=== PATIENT | female | born 1940 | race Caucasian/White ===

== ENCOUNTER 2017-07-11 19:07 | Inpatient (IN) | payer MEDICARE, SELFPAY ==
[2017-07-11] VITALS (7 sets, daily range): BP systolic 96–129; BP diastolic 45–67; PULSE 58–68; RESP 18–20; TEMP 36.4–37.1; O2SAT 96–100; BMI 33.3
--- NOTE | 2017-07-11 19:23 | EKG12_ITS ---
Test Reason : NEW ADMIT Blood Pressure : / mmHG Vent. Rate : 055 BPM Atrial Rate : 055 BPM P-R Int : 148 ms QRS Dur : 076 ms QT Int : 446 ms P-R-T Axes : 025 019 036 degrees QTc Int : 426 ms Sinus bradycardia Otherwise normal ECG When compared with ECG of 25-OCT-2014 22:19, Nonspecific T wave abnormality has replaced inverted T waves in Anterior leads Confirmed by ALEX LOWERY, ISIAH ([id number]), scientific publications editor LUCI DE LA O ([id number] on 07/15/2017 1:09:41 PM Referred By: KENZIE MELENDEZ Confirmed By:ISIAH JOHNSON MD
--- NOTE | 2017-07-11 21:45 | PCM.HP.STD ---
Problem List (1) PAF (paroxysmal atrial fibrillation) Status: Acute (2) Influenza B Status: Acute (3) Influenzal bronchiolitis Status: Acute History of Present Illness Date of Admission: 07/11/17 Chief Complaint: wheezing and dyspnea The patient is a 77 year old F with past history of PAF, hyperlipidemia, hypothyroidism, mood disorder, rheumatoid arthritis on twice monthly biologic injectable, who is currently completing treatment with Tamiflu for influenza B infection. She has had wheezing over the past few days. She was seen in the PCP office today and received albuterol aerosol ?2. Due to continued wheezing, she was referred to emergency department where she received albuterol/ipratropium aerosol ?2. She developed PAF RVR, with EKG revealing atrial fibrillation rates 140s. Chest x-ray was unrevealing. Saturation was 98 -100% on 2 liters. Chest x-ray revealed no infiltrate. Chest CT PE protocol revealed no evidence of thromboembolic phenomena, basilar atelectasis. The patient was treated with diltiazem protocol, and upon transfer from the emergency department had reverted to normal sinus rhythm. Upon seeing the patient, she remains in normal sinus rhythm. She denies chest pain, productive cough, fevers chills nausea vomiting diarrhea. She has felt wiped out from the influenza. She is still wheezing slightly. Laboratories are reviewed from referring facility. CBC was acceptable, white count 3.5, hemoglobin 14.4, urinalysis negative, chemistries pertinent for potassium 3.1, BUN 1.0, otherwise unrevealing, BNP 383, troponin 0. 30. Reports prior history of PAF after surgeries 4 years ago. She recalls stress test was unrevealing. She completed a course of Xarelto for DVT and has been off NOAC for 2 weeks. [] Past Medical History Past Medical History (Chronic Problems): Chronic Problems (Last Updated 05/16/17 @ 13:54 by Zoë Duke) GI (gastrointestinal bleed) (Chronic ~01/2017) DVT (deep venous thrombosis) (Chronic) right lower leg Hyperlipidemia (Chronic) Paroxysmal atrial fibrillation (Chronic) Hypothyroidism (Chronic) 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 (Chronic) Rheumatoid arthritis (Chronic) Mixed anxiety and depressive disorder (Chronic) Immunosuppressed status (Chronic) on Humira and methotrexate History of peptic ulcer disease (Chronic) Allergies cephalexin monohydrate [From [employer]] Allergy (Verified 05/16/17 13:45) Hives ethchlorvynol [From Placidyl] Allergy (Verified 05/16/17 13:45) Unknown NSAIDS (Non-Steroidal Anti-Inflamma Allergy (Verified 05/16/17 13:45) Unknown Penicillins [PCN] Allergy (Verified 05/16/17 13:45) Unknown Sulfa (Sulfonamide Antibiotics) Allergy (Verified 05/16/17 13:45) Rash sulfamethoxazole [From Septra] Allergy (Verified 05/16/17 13:45) Unknown trimethoprim [From Septra] Allergy (Verified 05/16/17 13:45) Unknown Home Medications: Ambulatory Orders Medication Instructions Recorded Atorvastatin Calcium [Lipitor] 20 mg PO QHS 10/17/14 Ergocalciferol [Vitamin D] 5,000 unit PO DAILY 10/17/14 Levothyroxine [Synthroid] 100 mcg PO DAILY 10/17/14 Sertraline HCl [Zoloft] 100 mg PO DAILY 10/17/14 tocilizumab 162 mg/0.9 mL 162 mg SC Q2W ml 05/16/17 subcutaneous syringe Diltiazem CD [Cardizem CD] 120 mg PO DAILY 07/11/17 Oseltamivir Phosphate [Tamiflu] 75 mg PO BID 07/11/17 Psychiatric History: Anxiety, Depression 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 MINER 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 History: No pertinent MUCK MINER BLASTING history Smoking Status: Never smoker - *Family History Maternal History Items: Cancer - mother had breast CA in her 90's, Unknown Paternal History Items: Heart Disease, - - aneurysm in her father who from CAD and aneurym at 74 Sibling History Items: Cancer - she had a brother with throat cancer, - - she had a sister with severe epilepsy who lived in a [place] and Review of Systems Respiratory: Reports: Wheezing, - - cough VTE Information - Inpt Only VTE Present on Admission: No VTE Mechan Device Prophylaxis: SCD's VTE Pharm Prophylaxis ordered?: Yes Patient Problems: Active and Suspected Problems (Last Updated 05/16/17 @ 13:54 by Zoë Duke) PAF (paroxysmal atrial fibrillation) (Acute) Influenza B (Acute) Influenzal bronchiolitis (Acute) - Physical Exam General: Alert, Oriented x3, Cooperative Oral: Moist Mucosa Neck: Supple, No JVD, Negative Carotid Bruits, Negative Hepatojugular Reflux Lungs: Wheezes Cardiovascular: Regular rate, Regular Rhythm, Normal S1, Normal S2 Abdomen: Bowel Sounds Present, Soft, Non Tender, Non-Distended Extremities: - - Gross edema, bilateral well-healed knee arthroplasties Skin: No rashes, No breakdown Neurological: Neuro grossly intact Psych/Mental Status: Normal Affect, Appropriate Vital Signs Temp Pulse Resp BP Pulse Ox 97.6 F L 68 20 H 112/67 99 07/11/17 21:00 07/11/17 21:00 07/11/17 21:00 07/11/17 21:00 07/11/17 21:00 Oxygen Flow Rate (L/min) 2 Oxygen Delivery Method Nasal Cannula Weight: 194 lb 3.636 oz Body Mass Index (BMI) 33.3 Assessment/Plan Active and Suspected Problems (Last Updated 05/16/17 @ 13:54 by Zoë Duke) PAF (paroxysmal atrial fibrillation) (Acute) Influenza B (Acute) Influenzal bronchiolitis (Acute) 77-year-old woman with comorbidities of hyperlipidemia, hypothyroidism, mood disorder, rheumatoid arthritis on biological injectable twice monthly, PAF, DVT status post NOAC anticoagulation stopped 2 weeks ago, presents with influenza B/influenzal bronchiolitis, complicated by PAF provoked due to bronchodilator therapy. She has reverted to normal sinus rhythm. She has 2 additional doses of Tamiflu left to complete of her 5 day course. Biggest issue at the moment is pulmonary toilette. She would benefit from course of steroids and perhaps LABA/steroid. Would avoid further DUONEB.albuterol . Her elevated is likely consistent with troponin leak secondary to sustained tachyarrhythmia, now resolved; will cycle serial troponins, continue telemetry monitoring. Patient never had chest pain symptoms. 1. influenza B, influenzal bronchiolitis Solumedrol 40 mg IV every 8 hours Mucinex complete Tamiflu fluids, antitussives, Tylenol prn, Cepacol trial LABA/steroid droplet precautions 2. PAF resolved Provoked by bronchodilator therapy in setting of HTN; reports post op afib about 4 years ago [id number] score = 4 consider NOAC opinion cardiology (patient follows with Dr. Balderas) 3. elevated troponin , suspect 2/2 demand ischemia, no chest pain, NOS -- will cycle serial troponins 4. hypoKalemia -- will replete 3. hypothyroidism on replacement check TSH 4. HPL on statin 5. mood disorder - SSRI 6. RA on biologics, immunocompromised state DVT prophy -- SCDs, subQ heparin
--- NOTE | 2017-07-11 22:00 | HP.PCM_ITS ---
Problem List (1) PAF (paroxysmal atrial fibrillation) Status: Acute (2) Influenza B Status: Acute (3) Influenzal bronchiolitis Status: Acute History of Present Illness Date of Admission: 07/11/17 Chief Complaint: wheezing and dyspnea The patient is a 77 year old F with past history of PAF, hyperlipidemia, hypothyroidism, mood disorder, rheumatoid arthritis on twice monthly biologic injectable, who is currently completing treatment with Tamiflu for influenza B infection. She has had wheezing over the past few days. She was seen in the PCP office today and received albuterol aerosol ?2. Due to continued wheezing, she was referred to emergency department where she received albuterol/ ipratropium aerosol ?2. She developed PAF RVR, with EKG revealing atrial fibrillation rates 140s. Chest x-ray was unrevealing. Saturation was 98 -100% on 2 liters. Chest x-ray revealed no infiltrate. Chest CT PE protocol revealed no evidence of thromboembolic phenomena, basilar atelectasis. The patient was treated with diltiazem protocol, and upon transfer from the emergency department had reverted to normal sinus rhythm. Upon seeing the patient, she remains in normal sinus rhythm. She denies chest pain, productive cough, fevers chills nausea vomiting diarrhea. She has felt wiped out from the influenza. She is still wheezing slightly. Laboratories are reviewed from referring facility. CBC was acceptable, white count 3.5, hemoglobin 14.4, urinalysis negative, chemistries pertinent for potassium 3.1, BUN 1.0, otherwise unrevealing, BNP 383, troponin 0. 30. Reports prior history of PAF after surgeries 4 years ago. She recalls stress test was unrevealing. She completed a course of Xarelto for DVT and has been off NOAC for 2 weeks. [] Past Medical History Past Medical History (Chronic Problems): Chronic Problems (Last Updated 05/16/17 @ 13:54 by Zoë Duke) GI (gastrointestinal bleed) (Chronic ~01/2017) DVT (deep venous thrombosis) (Chronic) right lower leg Hyperlipidemia (Chronic) Paroxysmal atrial fibrillation (Chronic) Hypothyroidism (Chronic) 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 (Chronic) Rheumatoid arthritis (Chronic) Mixed anxiety and depressive disorder (Chronic) Immunosuppressed status (Chronic) on Humira and methotrexate History of peptic ulcer disease (Chronic) Allergies cephalexin monohydrate [From [employer]] Allergy (Verified 05/16/17 13:45) Hives ethchlorvynol [From Placidyl] Allergy (Verified 05/16/17 13:45) Unknown NSAIDS (Non-Steroidal Anti-Inflamma Allergy (Verified 05/16/17 13:45) Unknown Penicillins [PCN] Allergy (Verified 05/16/17 13:45) Unknown Sulfa (Sulfonamide Antibiotics) Allergy (Verified 05/16/17 13:45) Rash sulfamethoxazole [From Septra] Allergy (Verified 05/16/17 13:45) Unknown trimethoprim [From Septra] Allergy (Verified 05/16/17 13:45) Unknown Home Medications: Ambulatory Orders Medication Instructions Recorded Atorvastatin Calcium [Lipitor] 20 mg PO QHS 10/17/14 Ergocalciferol [Vitamin D] 5,000 unit PO DAILY 10/17/14 Levothyroxine [Synthroid] 100 mcg PO DAILY 10/17/14 Sertraline HCl [Zoloft] 100 mg PO DAILY 10/17/14 tocilizumab 162 mg/0.9 mL 162 mg SC Q2W ml 05/16/17 subcutaneous syringe Diltiazem CD [Cardizem CD] 120 mg PO DAILY 07/11/17 Oseltamivir Phosphate [Tamiflu] 75 mg PO BID 07/11/17 Psychiatric History: Anxiety, Depression 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: No pertinent GOLD LEAF GILDER history Smoking Status: Never smoker - *Family History Maternal History Items: Cancer - mother had breast CA in her 90's, Unknown Paternal History Items: Heart Disease, - - aneurysm in her father who from CAD and aneurym at 74 Sibling History Items: Cancer - she had a brother with throat cancer, - - she had a sister with severe epilepsy who lived in a [place] and Review of Systems Respiratory: Reports: Wheezing, - - cough VTE Information - Inpt Only VTE Present on Admission: No VTE Mechan Device Prophylaxis: SCD's VTE Pharm Prophylaxis ordered?: Yes Patient Problems: Active and Suspected Problems (Last Updated 05/16/17 @ 13:54 by Zoë Duke) PAF (paroxysmal atrial fibrillation) (Acute) Influenza B (Acute) Influenzal bronchiolitis (Acute) - Physical Exam General: Alert, Oriented x3, Cooperative Oral: Moist Mucosa Neck: Supple, No JVD, Negative Carotid Bruits, Negative Hepatojugular Reflux Lungs: Wheezes Cardiovascular: Regular rate, Regular Rhythm, Normal S1, Normal S2 Abdomen: Bowel Sounds Present, Soft, Non Tender, Non-Distended Extremities: - - Gross edema, bilateral well-healed knee arthroplasties Skin: No rashes, No breakdown Neurological: Neuro grossly intact Psych/Mental Status: Normal Affect, Appropriate Vital Signs Temp Pulse Resp BP Pulse Ox 97.6 F L 68 20 H 112/67 99 07/11/17 21:00 07/11/17 21:00 07/11/17 21:00 07/11/17 21:00 07/11/17 21:00 Oxygen Flow Rate (L/min) 2 Oxygen Delivery Method Nasal Cannula Weight: 194 lb 3.636 oz Body Mass Index (BMI) 33.3 Assessment/Plan Active and Suspected Problems (Last Updated 05/16/17 @ 13:54 by Zoë Duke) PAF (paroxysmal atrial fibrillation) (Acute) Influenza B (Acute) Influenzal bronchiolitis (Acute) 77-year-old woman with comorbidities of hyperlipidemia, hypothyroidism, mood disorder, rheumatoid arthritis on biological injectable twice monthly, PAF, DVT status post NOAC anticoagulation stopped 2 weeks ago, presents with influenza B/ influenzal bronchiolitis, complicated by PAF provoked due to bronchodilator therapy. She has reverted to normal sinus rhythm. She has 2 additional doses of Tamiflu left to complete of her 5 day course. Biggest issue at the moment is pulmonary toilette. She would benefit from course of steroids and perhaps LABA/steroid. Would avoid further DUONEB.albuterol . Her elevated is likely consistent with troponin leak secondary to sustained tachyarrhythmia, now resolved; will cycle serial troponins, continue telemetry monitoring. Patient never had chest pain symptoms. 1. influenza B, influenzal bronchiolitis Solumedrol 40 mg IV every 8 hours Mucinex complete Tamiflu fluids, antitussives, Tylenol prn, Cepacol trial LABA/steroid droplet precautions 2. PAF resolved Provoked by bronchodilator therapy in setting of HTN; reports post op afib about 4 years ago [id number] score = 4 consider NOAC opinion cardiology (patient follows with Dr. Balderas) 3. elevated troponin , suspect 2/2 demand ischemia, no chest pain, NOS -- will cycle serial troponins 4. hypoKalemia -- will replete 3. hypothyroidism on replacement check TSH 4. HPL on statin 5. mood disorder - SSRI 6. RA on biologics, immunocompromised state DVT prophy -- SCDs, subQ heparin
[2017-07-11] MEDS: 0.9% Normal Saline 1,000 ML 75 ML IV (22:44)
[2017-07-12] VITALS (15 sets, daily range): BP systolic 126–147; BP diastolic 57–78; PULSE 57–171; RESP 16–20; TEMP 36.8–37.2; O2SAT 92–97
[2017-07-12] MEDS: 0.9% NaCl Peripheral Flush Adult/Peds IV ×3 (05:32→22:17)
[2017-07-12] MEDS: Levothyroxine 100 MCG Tablet PO (05:32)
[2017-07-12 06:56] LABS: Bedside Glucose 102 mg/dL (70-110)
[2017-07-12] MEDS: Budesonide Respules 0.5 MG/2 ML AMPUL.NEB. INHALATION ×2 (07:23→19:49)
[2017-07-12 07:30] LABS: Absolute Lymphocyte Count 0.97 X10^3/ul (0.83-4.51); Absolute Neutrophil Count 1.3 X10^3/uL (2.0-7.7); Basophil# 0.04 X10^3/uL; Basophil% 1.5 % (0-1); Eosinophil# 0.04 X10^3/uL; Eosinophils% 1.5 % (0-5); Hematocrit 40.3 % (37-47); Hemoglobin 12.8 g/dl (12.0-15.0); Lymphocyte # 0.97 X10^3/ul (4.0); Lymphocyte % 36.1 % (19-41); Mean Corp Hgb Conc 31.8 g/gl (32-36); Mean Corpuscular Hgb 29.6 pg (27.0-32.0); Mean Corpuscular Volume 93.3 fL (81-99); Mean Platelet Vol. 10.2 fl (6.2-12.0); Monocyte# 0.29 X10^3/uL; Monocyte% 10.8 % (0-10); Neutrophil # 1.34 X10^3/uL (2.7-7.7); Neutrophil % 49.7 % (47-70); Platelet Count 144 K/mm3 (150-450); RBC Distribution Width CV 16.9 % (11.6-14.6); Red Blood Count 4.32 M/mm3 (4.2-5.4); White Blood Count 2.7 K/mm3 (4.4-11.0)
[2017-07-12 07:35] LABS: POSITIVE COUNT NO; POSITIVE DIFFERENTIAL NO; POSITIVE MORPHOLOGY NO
[2017-07-12 08:06] LABS: Anion Gap 10 (5-15); BUN 9 mg/dL (7-18); BUN/Creat Ratio 10.9 RATIO (10-20); Calcium,Total 7.9 mg/dL (8.5-10.1); Chloride 113 mmol/L (98-107); Creatinine, Serum 0.83 mg/dL (0.55-1.02); EST Glomerular Filtration Rate 71 mL/min (>60); Est Glom Filt Rate - Afr Amer 86 mL/min (>60); Estimated Creatinine Clearance 49.79 ml/min; Glucose 98 mg/dL (74-106); Magnesium 1.9 mg/dL (1.6-2.6); Sodium Level 144 mmol/L (136-145); Thyroid Stim Hormone (TSH) 2.17 uIU/mL (0.358-3.74)
[2017-07-12] MEDS: dilTIAZem CD 120 MG Capsule PO (09:42)
[2017-07-12] MEDS: Sertraline 100 MG Tablet PO (09:42)
[2017-07-12] MEDS: Oseltamivir Phosphate 75 MG Capsule PO ×2 (09:43→22:10)
[2017-07-12] MEDS: guaiFENesin 1,200 MG Tablet 600 MG PO (09:43)
--- NOTE | 2017-07-12 09:56 | PCM.CONS.C ---
Problem List (1) PAF (paroxysmal atrial fibrillation) Status: Acute (2) Hyperlipidemia Status: Chronic Reason for Consult Date of Consultation: 07/12/17 Reason for Consultation: Paroxysmal atrial fibrillation, hypertension, hypothyroidism, hyperlipidemia History of Present Illness: The patient is a 77 year old F, patient of mine, nondiabetic, non-smoker, with a history of hypercholesterolemia, currently on Lipitor, and former patient of Dr. Rangel. I originally saw the patient in consultation on 10/26/14 after she had tripped and fallen over some sticks injuring her left lower leg. This proceeded to an infection or period of days and presented with left lower extremity cellulitis requiring surgical debridement. This occurred on 10/21/14 and then again on 10/25/14. After her third surgery she developed paroxysmal atrial fibrillation with rapid ventricular response and was treated with a Cardizem drip which then spontaneously converted. Patient underwent successful flap surgery by plastic surgery over her left jimenez several years ago. Her cardiac workup included an echocardiogram which demonstrated an EF of 65% and RVSP of 24 mmHg. She was treated with baby aspirin and Cardizem. She underwent a noninvasive stress test which was negative for inducible ischemia after her wound had healed. Patient suffered a mechanical fall in [place] approximately 1 years ago tripping over a curb requiring 12 chanda in her right knee. This is subsequently well-healed. Patient has been doing well up until around Tuesday when she developed flulike symptoms and was diagnosed with influenza and started on Tamiflu on of last week. Patient's shortness of breath worsened on Tuesday sought medical attention with her PCP. The patient was treated with nebulizer therapy and developed palpitations and worsening shortness of breath. Patient sought medical attention on the day of admission and she was found to be in rapid atrial fibrillation after a nebulizer treatment. Patient was given Cardizem and subsequently converted back to normal sinus rhythm. Prior to her illness she denied any palpitations, chest pain, shortness of breath or dyspnea on exertion. She has had no subsequent falls, presyncope or syncope. She is not on long-term anticoagulation. Since admission she had one episode of atrial fibrillation with rapid ventricular response with minor aberrancy noted. She is currently in normal sinus rhythm. Her troponins have been negative. Patient stated that she did not note her heart was racing, and denied knowing when she goes in and out of atrial fibrillation. [] Past Medical History Allergies/Adverse Reactions: Allergies cephalexin monohydrate [From Keflex] Allergy (Verified 05/16/17 13:45) Hives ethchlorvynol [From Placidyl] Allergy (Verified 05/16/17 13:45) Unknown NSAIDS (Non-Steroidal Anti-Inflamma Allergy (Verified 05/16/17 13:45) Unknown Penicillins [PCN] Allergy (Verified 05/16/17 13:45) Unknown Sulfa (Sulfonamide Antibiotics) Allergy (Verified 05/16/17 13:45) Rash sulfamethoxazole [From Septra] Allergy (Verified 05/16/17 13:45) Unknown trimethoprim [From Septra] Allergy (Verified 05/16/17 13:45) Unknown Home Medications: Ambulatory Orders Medication Instructions Recorded Atorvastatin Calcium [Lipitor] 20 mg PO QHS 10/17/14 Ergocalciferol [Vitamin D] 5,000 unit PO DAILY 10/17/14 Levothyroxine [Synthroid] 100 mcg PO DAILY 10/17/14 Sertraline HCl [Zoloft] 100 mg PO DAILY 10/17/14 tocilizumab 162 mg/0.9 mL 162 mg SC Q2W ml 05/16/17 subcutaneous syringe Diltiazem CD [Cardizem CD] 120 mg PO DAILY 07/11/17 Oseltamivir Phosphate [Tamiflu] 75 mg PO BID 07/11/17 Past Medical History (Chronic Problems): Chronic Problems (Last Updated 05/16/17 @ 13:54 by Zoë Duke) GI (gastrointestinal bleed) (Chronic ~01/2017) DVT (deep venous thrombosis) (Chronic) right lower leg Hyperlipidemia (Chronic) Paroxysmal atrial fibrillation (Chronic) Hypothyroidism (Chronic) 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 (Chronic) Rheumatoid arthritis (Chronic) Mixed anxiety and depressive disorder (Chronic) Immunosuppressed status (Chronic) on Humira and methotrexate History of peptic ulcer disease (Chronic) Psychiatric History: Anxiety, Depression 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 - *Family History Maternal Family History: Family History (Last Reviewed 05/16/17 @ 13:45 by Zoë Duke) Father CAD (coronary artery disease) Mother Breast cancer History Items: Cancer - mother had breast CA in her 90's, Unknown Paternal Family History: Family History (Last Reviewed 05/16/17 @ 13:45 by Zoë Duke) Father CAD (coronary artery disease) Mother Breast cancer History Items: Heart Disease, - - aneurysm in her father who from CAD and aneurym at 74 Sibling Family History: Family History (Last Reviewed 05/16/17 @ 13:45 by Zoë Duke) Father CAD (coronary artery disease) Mother Breast cancer History Items: Cancer - she had a brother with throat cancer, - - she had a sister with severe epilepsy who lived in a [place] and Smoking Status: Never smoker Review of Systems - Review of Systems General: Denies: Fever, Night Sweats, Fatigue Cardiovascular: Reports: Shortness of Breath at Rest. Denies: Chest Discomfort, Shortness of Breath, Orthopnea, PND, Peripheral Edema, Palpitations, Lightheadedness, Dizziness, Near Syncope, Syncope Respiratory: Denies: Cough, Sputum Production, Hemoptysis Gastrointestinal: Denies: Hematemesis, Hematochezia, Melena Genitourinary: Denies: Dysuria, Hematuria Skin: Denies: Rash Subjectve: Currently sitting in a chair resting comfortably, no acute distress. Objective: Vital Signs Temp Pulse Resp BP Pulse Ox 98.4 F 80 18 128/57 H 97 07/12/17 09:30 07/12/17 09:30 07/12/17 09:30 07/12/17 09:30 07/12/17 09:30 Oxygen Flow Rate (L/min) 2 Oxygen Delivery Method Room Air Weight: 194 lb 3.636 oz Body Mass Index (BMI) 33.3 Intake and Output for Last 24 Hours 07/10/17 07/11/17 07/12/17 23:59 23:59 23:59 Intake Total 736 / 736 Balance 736 / 736 General: Awake, Alert, Oriented x 3 HEENT: PERRL, EOMI, Sclera Non Icteric Neck: Supple, Good ROM, No Lymph Node Enlargement Lungs: Clear to auscultation Cardiovascular: Regular Rhythm, Normal S1, Normal S2, No Murmurs, No Rubs, No Gallops Vascular: No Carotid Bruits, Normal Femoral Pulses, Normal Radial Pulses, Normal Dorsalis Pedal Pulse, Normal Posterior Tibial Pulses Abdomen: Bowel Sounds Present, Soft, Non Tender, No HSM, No Organomegaly Extremities: No Cyanosis, No Clubbing, No edema Neurological: No Focal Motor or Sensory Deficit 07/11/17 22:36: Troponin I < 0.02 07/12/17 02:33: Troponin I < 0.02 07/12/17 06:46: WBC 2.7 L, RBC 4.32, Hgb 12.8, Hct 40.3, MCV 93.3, MCH 29.6, MCHC 31.8 L, RDW 16.9 H, RDW Differential 58.0 H, Plt Count 144 L, MPV 10.2, Immature Gran % (Auto) 0.400, Neut % (Auto) 49.7, Lymph % (Auto) 36.1, Sherman % (Auto) 10.8 H, Eos % (Auto) 1.5, Baso % (Auto) 1.5 H, Absolute Neuts (auto) 1.3 L, Total Counted Not Reportable 07/12/17 06:46: Sodium 144, Potassium 4.0, Chloride 113 H, Carbon Dioxide 21.0, Anion Gap 10, BUN 9, Creatinine 0.83, Est GFR (MDRD) Af Amer 86, Est GFR (MDRD) Non-Af 71, BUN/Creatinine Ratio 10.9, Glucose 98, Calcium 7.9 L, Magnesium 1.9 07/12/17 06:46: Troponin I < 0.02 Rhythm: EKG: Normal sinus rhythm with no acute changes. Admission EKG showed atrial fibrillation with rapid ventricular response and diffuse dynamic ST segment T-wave flattening. ECHO: Stress Test: Cardiac Cath: PCI: CT Surgery: Holter monitor: EPS: PPM: CXR: Chest CT Scan: Assessment/Plan 1. Paroxysmal atrial fibrillation: The patient's atrial fibrillation appears to manifest itself and the patient is in an acute illness like setting consistent with previous infection of her legs, and now with influenza. Her LV function is normal on her previous echocardiogram and her stress test was also negative. It appears the patient is unaware when she goes in and out of atrial fibrillation. In addition she has a history of peptic ulcer disease making anticoagulation somewhat problematic going forward. At this point the patient is in normal sinus rhythm and would not recommend oral anticoagulation going forward. It appears that as her respiratory illness improves her atrial fibrillation becomes less prominent. I would however recommend a 30 day event monitor upon discharge in order to document whether she is going in and out of atrial fibrillation unbeknownst to her, and outside the acute illness. If this demonstrates atrial fibrillation I would recommend oral anticoagulation therapy with either Xarelto or Eliquis. In the meantime her troponins are negative and I would not recommend repeat echo or stress test at this time. Her TSH is normal, continue Synthroid therapy. Continue Cardizem CD 120 mg p.o. daily. I believe it is prudent to continue baby aspirin. 2. Hyperlipidemia: Continued Lipitor therapy. 3. Thank you very much for the opportunity to participate in the cardiac care of your patient. Consultation time took place between 930 and 10 AM. Code Visit Inpatient E&M: 28302 Init Hosp L2
--- NOTE | 2017-07-12 10:03 | CON.PCM_ITS ---
Problem List (1) PAF (paroxysmal atrial fibrillation) Status: Acute (2) Hyperlipidemia Status: Chronic Reason for Consult Date of Consultation: 07/12/17 Reason for Consultation: Paroxysmal atrial fibrillation, hypertension, hypothyroidism, hyperlipidemia History of Present Illness: The patient is a 77 year old F, patient of mine, nondiabetic, non-smoker, with a history of hypercholesterolemia, currently on Lipitor, and former patient of Dr. Rangel. I originally saw the patient in consultation on 10/26/14 after she had tripped and fallen over some sticks injuring her left lower leg. This proceeded to an infection or period of days and presented with left lower extremity cellulitis requiring surgical debridement. This occurred on 10/21/14 and then again on 10/25/14. After her third surgery she developed paroxysmal atrial fibrillation with rapid ventricular response and was treated with a Cardizem drip which then spontaneously converted. Patient underwent successful flap surgery by plastic surgery over her left jimenez several years ago. Her cardiac workup included an echocardiogram which demonstrated an EF of 65% and RVSP of 24 mmHg. She was treated with baby aspirin and Cardizem. She underwent a noninvasive stress test which was negative for inducible ischemia after her wound had healed. Patient suffered a mechanical fall in [place] approximately 1 years ago tripping over a curb requiring 12 chanda in her right knee. This is subsequently well-healed. Patient has been doing well up until around Tuesday when she developed flulike symptoms and was diagnosed with influenza and started on Tamiflu on of last week. Patient's shortness of breath worsened on Tuesday sought medical attention with her PCP. The patient was treated with nebulizer therapy and developed palpitations and worsening shortness of breath. Patient sought medical attention on the day of admission and she was found to be in rapid atrial fibrillation after a nebulizer treatment. Patient was given Cardizem and subsequently converted back to normal sinus rhythm. Prior to her illness she denied any palpitations, chest pain, shortness of breath or dyspnea on exertion. She has had no subsequent falls, presyncope or syncope. She is not on long-term anticoagulation. Since admission she had one episode of atrial fibrillation with rapid ventricular response with minor aberrancy noted. She is currently in normal sinus rhythm. Her troponins have been negative. Patient stated that she did not note her heart was racing, and denied knowing when she goes in and out of atrial fibrillation. [] Past Medical History Allergies/Adverse Reactions: Allergies cephalexin monohydrate [From Keflex] Allergy (Verified 05/16/17 13:45) Hives ethchlorvynol [From Placidyl] Allergy (Verified 05/16/17 13:45) Unknown NSAIDS (Non-Steroidal Anti-Inflamma Allergy (Verified 05/16/17 13:45) Unknown Penicillins [PCN] Allergy (Verified 05/16/17 13:45) Unknown Sulfa (Sulfonamide Antibiotics) Allergy (Verified 05/16/17 13:45) Rash sulfamethoxazole [From Septra] Allergy (Verified 05/16/17 13:45) Unknown trimethoprim [From Septra] Allergy (Verified 05/16/17 13:45) Unknown Home Medications: Ambulatory Orders Medication Instructions Recorded Atorvastatin Calcium [Lipitor] 20 mg PO QHS 10/17/14 Ergocalciferol [Vitamin D] 5,000 unit PO DAILY 10/17/14 Levothyroxine [Synthroid] 100 mcg PO DAILY 10/17/14 Sertraline HCl [Zoloft] 100 mg PO DAILY 10/17/14 tocilizumab 162 mg/0.9 mL 162 mg SC Q2W ml 05/16/17 subcutaneous syringe Diltiazem CD [Cardizem CD] 120 mg PO DAILY 07/11/17 Oseltamivir Phosphate [Tamiflu] 75 mg PO BID 07/11/17 Past Medical History (Chronic Problems): Chronic Problems (Last Updated 05/16/17 @ 13:54 by Zoë Duke) GI (gastrointestinal bleed) (Chronic ~01/2017) DVT (deep venous thrombosis) (Chronic) right lower leg Hyperlipidemia (Chronic) Paroxysmal atrial fibrillation (Chronic) Hypothyroidism (Chronic) 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 (Chronic) Rheumatoid arthritis (Chronic) Mixed anxiety and depressive disorder (Chronic) Immunosuppressed status (Chronic) on Humira and methotrexate History of peptic ulcer disease (Chronic) Psychiatric History: Anxiety, Depression CASINO HOST History: No pertinent CASINO HOST history - *Family History Maternal Family History: Family History (Last Reviewed 05/16/17 @ 13:45 by Zoë Duke) Father CAD (coronary artery disease) Mother Breast cancer History Items: Cancer - mother had breast CA in her 90's, Unknown Paternal Family History: Family History (Last Reviewed 05/16/17 @ 13:45 by Zoë Duke) Father CAD (coronary artery disease) Mother Breast cancer History Items: Heart Disease, - - aneurysm in her father who from CAD and aneurym at 74 Sibling Family History: Family History (Last Reviewed 05/16/17 @ 13:45 by Zoë Duke) Father CAD (coronary artery disease) Mother Breast cancer History Items: Cancer - she had a brother with throat cancer, - - she had a sister with severe epilepsy who lived in a [place] and Smoking Status: Never smoker Review of Systems - Review of Systems General: Denies: Fever, Night Sweats, Fatigue Cardiovascular: Reports: Shortness of Breath at Rest. Denies: Chest Discomfort , Shortness of Breath, Orthopnea, PND, Peripheral Edema, Palpitations, Lightheadedness, Dizziness, Near Syncope, Syncope Respiratory: Denies: Cough, Sputum Production, Hemoptysis Gastrointestinal: Denies: Hematemesis, Hematochezia, Melena Genitourinary: Denies: Dysuria, Hematuria Skin: Denies: Rash Subjectve: Currently sitting in a chair resting comfortably, no acute distress. Objective: Vital Signs Temp Pulse Resp BP Pulse Ox 98.4 F 80 18 128/57 H 97 07/12/17 09:30 07/12/17 09:30 07/12/17 09:30 07/12/17 09:30 07/12/17 09:30 Oxygen Flow Rate (L/min) 2 Oxygen Delivery Method Room Air Weight: 194 lb 3.636 oz Body Mass Index (BMI) 33.3 Intake and Output for Last 24 Hours 07/10/17 07/11/17 07/12/17 23:59 23:59 23:59 Intake Total 736 / 736 Balance 736 / 736 General: Awake, Alert, Oriented x 3 HEENT: PERRL, EOMI, Sclera Non Icteric Neck: Supple, Good ROM, No Lymph Node Enlargement Lungs: Clear to auscultation Cardiovascular: Regular Rhythm, Normal S1, Normal S2, No Murmurs, No Rubs, No Gallops Vascular: No Carotid Bruits, Normal Femoral Pulses, Normal Radial Pulses, Normal Dorsalis Pedal Pulse, Normal Posterior Tibial Pulses Abdomen: Bowel Sounds Present, Soft, Non Tender, No HSM, No Organomegaly Extremities: No Cyanosis, No Clubbing, No edema Neurological: No Focal Motor or Sensory Deficit 07/11/17 22:36: Troponin I < 0.02 07/12/17 02:33: Troponin I < 0.02 07/12/17 06:46: WBC 2.7 L, RBC 4.32, Hgb 12.8, Hct 40.3, MCV 93.3, MCH 29.6, MCHC 31.8 L, RDW 16.9 H, RDW Differential 58.0 H, Plt Count 144 L, MPV 10.2, Immature Gran % (Auto) 0.400, Neut % (Auto) 49.7, Lymph % (Auto) 36.1, Dade % ( Auto) 10.8 H, Eos % (Auto) 1.5, Baso % (Auto) 1.5 H, Absolute Neuts (auto) 1.3 L , Total Counted Not Reportable 07/12/17 06:46: Sodium 144, Potassium 4.0, Chloride 113 H, Carbon Dioxide 21.0, Anion Gap 10, BUN 9, Creatinine 0.83, Est GFR (MDRD) Af Amer 86, Est GFR (MDRD) Non-Af 71, BUN/Creatinine Ratio 10.9, Glucose 98, Calcium 7.9 L, Magnesium 1.9 07/12/17 06:46: Troponin I < 0.02 Rhythm: EKG: Normal sinus rhythm with no acute changes. Admission EKG showed atrial fibrillation with rapid ventricular response and diffuse dynamic ST segment T- wave flattening. ECHO: Stress Test: Cardiac Cath: PCI: CT Surgery: Holter monitor: EPS: PPM: CXR: Chest CT Scan: Assessment/Plan 1. Paroxysmal atrial fibrillation: The patient's atrial fibrillation appears to manifest itself and the patient is in an acute illness like setting consistent with previous infection of her legs, and now with influenza. Her LV function is normal on her previous echocardiogram and her stress test was also negative. It appears the patient is unaware when she goes in and out of atrial fibrillation. In addition she has a history of peptic ulcer disease making anticoagulation somewhat problematic going forward. At this point the patient is in normal sinus rhythm and would not recommend oral anticoagulation going forward. It appears that as her respiratory illness improves her atrial fibrillation becomes less prominent. I would however recommend a 30 day event monitor upon discharge in order to document whether she is going in and out of atrial fibrillation unbeknownst to her, and outside the acute illness. If this demonstrates atrial fibrillation I would recommend oral anticoagulation therapy with either Xarelto or Eliquis. In the meantime her troponins are negative and I would not recommend repeat echo or stress test at this time. Her TSH is normal, continue Synthroid therapy. Continue Cardizem CD 120 mg p.o. daily. I believe it is prudent to continue baby aspirin. 2. Hyperlipidemia: Continued Lipitor therapy. 3. Thank you very much for the opportunity to participate in the cardiac care of your patient. Consultation time took place between 930 and 10 AM. Code Visit Inpatient E&M: 32344 Init Hosp L2
[2017-07-12] MEDS: 0.9% Normal Saline 1,000 ML 75 ML IV ×2 (11:32→23:56)
[2017-07-12 11:45] LABS: Bedside Glucose 147 mg/dL (70-110)
--- NOTE | 2017-07-12 13:11 | PN_ITS ---
Patient Problems: Active and Suspected Problems (Last Updated 05/16/17 @ 13:54 by Zoë Duke) PAF (paroxysmal atrial fibrillation) (Acute) Influenza B (Acute) Influenzal bronchiolitis (Acute) Subjective: Patient seen and examined. States shortness of breath is improved. Continues to complain of general malaise and nonproductive cough. Denies fever, chills. Shortness of breath worse with ambulation. Oxygen stable on room air. Denies other complaints. - Physical Exam General: Alert, Oriented x3, Cooperative, No apparent distress HEENT: Atraumatic, PERRLA, EOMI, Normocephalic Neck: Supple, No JVD, Negative Carotid Bruits Lungs: Rhonchi, Wheezes Cardiovascular: Regular rate, Regular Rhythm, Normal S1, Normal S2, No murmurs Abdomen: Bowel Sounds Present, Soft, Non Tender, Non-Distended Extremities: No clubbing, No cyanosis, No edema, Capillary Refill Less than 3 Seconds Skin: No rashes, No breakdown Musculoskeletal: No Tenderness to Palpation of Joints or Extremities Neurological: Cranial nerves II-XII grossly intact, Neuro grossly intact Psych/Mental Status: Normal Affect, Appropriate Vital Signs Temp Pulse Resp BP Pulse Ox 98.4 F 80 18 128/57 H 97 07/12/17 09:30 07/12/17 09:30 07/12/17 09:30 07/12/17 09:30 07/12/17 09:30 Oxygen Flow Rate (L/min) 2 Oxygen Delivery Method Room Air Weight: 88.1 kg Body Mass Index (BMI) 33.3 Intake and Output for Last 24 Hours 07/10/17 07/11/17 07/12/17 23:59 23:59 23:59 Intake Total 1881 Balance 1881 Laboratory Tests Past 24 Hrs 07/11/17 07/12/17 07/12/17 22:36 02:33 06:46 WBC 2.7 L RBC 4.32 Hgb 12.8 Hct 40.3 MCV 93.3 MCH 29.6 MCHC 31.8 L RDW 16.9 H RDW Differential 58.0 H Plt Count 144 L MPV 10.2 Immature Gran % (Auto) 0.400 Neut % (Auto) 49.7 Lymph % (Auto) 36.1 Waller % (Auto) 10.8 H Eos % (Auto) 1.5 Baso % (Auto) 1.5 H Absolute Neuts (auto) 1.3 L Absolute Lymphs (auto) 0.97 Total Counted Not Reportable Sodium Potassium Chloride Carbon Dioxide Anion Gap BUN Creatinine Estim Creat Clear Calc Est GFR (MDRD) Af Amer Est GFR (MDRD) Non-Af BUN/Creatinine Ratio Glucose Calcium Magnesium Troponin I < 0.02 < 0.02 TSH 07/12/17 07/12/17 06:46 06:46 WBC RBC Hgb Hct MCV MCH MCHC RDW RDW Differential Plt Count MPV Immature Gran % (Auto) Neut % (Auto) Lymph % (Auto) Waller % (Auto) Eos % (Auto) Baso % (Auto) Absolute Neuts (auto) Absolute Lymphs (auto) Total Counted Sodium 144 Potassium 4.0 Chloride 113 H Carbon Dioxide 21.0 Anion Gap 10 BUN 9 Creatinine 0.83 Estim Creat Clear Calc 49.79 Est GFR (MDRD) Af Amer 86 Est GFR (MDRD) Non-Af 71 BUN/Creatinine Ratio 10.9 Glucose 98 Calcium 7.9 L Magnesium 1.9 Troponin I < 0.02 TSH 2.17 POC Glucose 07/12/17 07/12/17 11:34 06:48 POC Glucose 147 H 102 Medical Necessity - Tobacco Use Smoking Status: Never smoker Assessment/Plan Active and Suspected Problems (Last Updated 05/16/17 @ 13:54 by Zoë Duke) PAF (paroxysmal atrial fibrillation) (Acute) Influenza B (Acute) Influenzal bronchiolitis (Acute) 1. Acute influenza B with bronchiolitis-complete Tamiflu course. Continue DuoNeb aerosols. Oxygen stable on room air. Continue IV Solu-Medrol 40 mg q. 8. Recommend transition to oral prednisone tomorrow. Patient is symptomatically improved. Chest x-ray at outside facility without infiltrate. Chest CT at [facility] 07/11/17 with no evidence of PE or infiltrate. 2. Paroxysmal atrial fibrillation-patient has a history of PAF following surgery. Atrial fibrillation this admission following aerosol treatments lasted approximately 4 hours and spontaneously resolved. Dr. Balderas consulted who patient follows with as outpatient. No oral anticoagulation is recommended at this time. Atrial fibrillation seems to be provoked by illness/aerosols. Patient will be discharged on 30 day event monitor. Continue Cardizem CD 120 mg daily. Patient had a stress test and echocardiogram in 2014 when atrial fibrillation was initially diagnosed following incision and drainage of left lower extremity cellulitis. These were unremarkable at the time and no further echocardiogram or stress test is recommended at this time. [id number] score 4. 3. Indeterminate troponin-troponin 0.30 as reported by outside facility. Suspect demand ischemia secondary to #1. Further troponin negative ?3. Patient denies chest pain. 4. Hyperlipidemia-continue statin. 5. Hypothyroidism-continue home Synthroid regimen. TSH within normal limits. 6. 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-continue vitamin D supplementation. 7. Rheumatoid arthritis-continue home tocilizumab regimen. 8. Anxiety/depression-continue sertraline regimen. 9. History of peptic ulcer disease/GI bleed. 10. History of DVT-venous duplex ultrasound January 2017 showed acute DVT of the right posterior tibial vein. Previously on Eliquis therapy. CT at [facility] prior to transfer showed no PE. DVT prophylaxis-heparin subcu. This patient was seen by BETITO Altman under the supervision of Dr. Mendez.
--- NOTE | 2017-07-12 14:05 | CASEMGMT ---
Face to Face with patient for initial transition planning/care coordination assessment. JAYDEN CERDA introduced self and role at [facility], pt voices understanding and consents to assessment at this time. Pt is sitting up in bed in no distress at this time. Pt is A/O x4 at this time and answers all questions appropriately at this time. Care providers, pharmacy, and demographics verified. See attached link. Pt voices no further questions/concerns at this time. Advised pt to ask for CM if any further questions/concerns/needs arise, voices understanding. PLAN: [place] JAYDEN CERDA
[2017-07-12 16:55] LABS: Bedside Glucose 178 mg/dL (70-110)
[2017-07-12] MEDS: Atorvastatin Calcium 20 MG Tablet PO (21:57)
[2017-07-12] MEDS: Senna/Docusate Sodium 1 Tablet 2 TABLET PO (21:58)
[2017-07-12] MEDS: guaiFENesin 600 MG Tablet PO (22:17)
[2017-07-12 22:46] LABS: Bedside Glucose 156 mg/dL (70-110)
[2017-07-13] VITALS (9 sets, daily range): BP systolic 128–147; BP diastolic 60–77; PULSE 47–79; RESP 16–18; TEMP 36.8–37; O2SAT 94–98
[2017-07-13] MEDS: 0.9% NaCl Peripheral Flush Adult/Peds IV (05:37)
[2017-07-13] MEDS: Levothyroxine 100 MCG Tablet PO (05:39)
[2017-07-13 07:01] LABS: Bedside Glucose 168 mg/dL (70-110)
[2017-07-13] MEDS: Budesonide Respules 0.5 MG/2 ML AMPUL.NEB. INHALATION (07:14)
[2017-07-13] MEDS: guaiFENesin 600 MG Tablet PO (08:28)
[2017-07-13] MEDS: dilTIAZem CD 120 MG Capsule PO (08:29)
[2017-07-13] MEDS: Sertraline 100 MG Tablet PO (10:07)
[2017-07-13 11:01] LABS: Bedside Glucose 196 mg/dL (70-110)
[2017-07-13] MEDS: 0.9% Normal Saline 1,000 ML 75 ML IV (12:26)
--- NOTE | 2017-07-13 16:27 | PCM.DC ---
- Discharge Diagnoses Current Active Problems: Current Active and Chronic Problems (Last Updated 05/16/17 @ 13:54 by Zoë Duke) PAF (paroxysmal atrial fibrillation) (Acute) Influenza B (Acute) Influenzal bronchiolitis (Acute) You will use the following diet at home:: Other - low carb until you are off the prednisone Your food should be the consistency of: Regular Your liquids should be the consistency of: Regular/Thin Discharge Activity: - - Avoid exposure to any strong smells such as bleach, cleaning products, strong colognes or perfumes, paint fumes and smoke of any kind. Avoid sudden exposure to cold air because this can cause bronchospasm. You may want to cover your mouth when you go outside in the winter. Avoid exposure to anyone who is sick with a cough or sore throat. Call your doctor if you observe: Fever of 101 or Higher, Shortness of breath, Dizziness, Chest pain, - - any increase in cough or change in the sputum Additional Instructions: Your blood sugars are only mildly elevated from the steroids. Watch your carbohydrate intake for the next week and make sure to drink enough water to stay well hydrated. When the blood sugar is elevated it makes you urinate a lot. It is not uncommon for a bacterial pneumonia to follow a viral infection......perico if you are taking immunosuppressive drugs for Rheumatoid. If thing suddenly get worse with increased cough, purulent sputum, fevers, chills call your PCP to be seen or come to the ER. You are no longer contagious. Take it easy! The flu is a serious illness and it takes a lot out of you......it is going to take you a while to get your strength back. Pending Tests on Discharge: none Allergies/Adverse Reactions: Allergies cephalexin monohydrate [From Keflex] Allergy (Verified 05/16/17 13:45) Hives ethchlorvynol [From Placidyl] Allergy (Verified 05/16/17 13:45) Unknown NSAIDS (Non-Steroidal Anti-Inflamma Allergy (Verified 05/16/17 13:45) Unknown Penicillins [PCN] Allergy (Verified 05/16/17 13:45) Unknown Sulfa (Sulfonamide Antibiotics) Allergy (Verified 05/16/17 13:45) Rash sulfamethoxazole [From Septra] Allergy (Verified 05/16/17 13:45) Unknown trimethoprim [From Septra] Allergy (Verified 05/16/17 13:45) Unknown Medications to take at Discharge Atorvastatin Calcium [Lipitor] 20 mg PO QHS 10/17/14 Ergocalciferol [Vitamin D] 5,000 unit PO DAILY 10/17/14 Levothyroxine [Synthroid] 100 mcg PO DAILY 10/17/14 Sertraline HCl [Zoloft] 100 mg PO DAILY 10/17/14 tocilizumab 162 mg/0.9 mL subcutaneous syringe 162 mg SC Q2W ml 05/16/17 Diltiazem CD [Cardizem CD] 120 mg PO DAILY 07/11/17 Acetaminophen [Tylenol Tablet] 650 mg PO Q6H PRN PRN tablet 07/13/17 Albuterol Inhaler [Ventolin Hfa] 2 puff INHALATION Q4H PRN PRN #1 inhaler 07/13/17 Guaifenesin [Mucinex] 600 mg PO BID #14 tab 07/13/17 Prednisone 10 mg PO UD #30 tab 07/13/17 The following prescriptions were given: Albuterol Inhaler [Ventolin Hfa] 2 puff INHALATION Q4H PRN PRN #1 inhaler PRN Reason: SOB/wheezing Prednisone 10 mg PO UD #30 tab Guaifenesin [Mucinex] 600 mg PO BID #14 tab Orders to be completed after discharge: 30-Day Event Recorder [[facility]] Location: None Selected Primary Care Physician: Mauricio Barney [Primary Care Provider] - Please follow up with your Primary Care Physician in: 7-10 days Proposed Discharge Date: 07/13/17
[2017-07-13 16:40] LABS: Bedside Glucose 218 mg/dL (70-110)
--- NOTE | 2017-07-13 16:40 | PCM.DC.SUM ---
Discharge Date and Diagnosis - Problem List Patient Problems: Active and Suspected Problems (Last Updated 05/16/17 @ 13:54 by Zoë Duke) Atrial fibrillation with RVR (Acute) Date of Admission: 07/11/17 Date of Discharge: 07/13/17 - Primary Discharge Diagnosis Active and Suspected Problems (Last Updated 05/16/17 @ 13:54 by Zoë Duke) Atrial fibrillation with RVR (Acute) Influenza B (Acute) Influenzal bronchiolitis (Acute) Hyperglycemia secondary to high-dose steroids - Secondary Discharge Diagnosis Chronic Problems (Last Updated 05/16/17 @ 13:54 by Zoë Duke) GI (gastrointestinal bleed) (Chronic ~01/2017) DVT (deep venous thrombosis) (Chronic) right lower leg Hyperlipidemia (Chronic) Paroxysmal atrial fibrillation (Chronic) Hypothyroidism (Chronic) 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 (Chronic) Rheumatoid arthritis (Chronic) Mixed anxiety and depressive disorder (Chronic) Immunosuppressed status (Chronic) on Humira and methotrexate History of peptic ulcer disease (Chronic) Hospital Course and Treatment Imaging Results: Laboratory Tests 07/11/17 07/12/17 07/12/17 22:36 02:33 06:46 WBC 2.7 L RBC 4.32 Hgb 12.8 Hct 40.3 MCV 93.3 MCH 29.6 MCHC 31.8 L RDW 16.9 H RDW Differential 58.0 H Plt Count 144 L MPV 10.2 Immature Gran % (Auto) 0.400 Neut % (Auto) 49.7 Lymph % (Auto) 36.1 [place] % (Auto) 10.8 H Eos % (Auto) 1.5 Baso % (Auto) 1.5 H Absolute Neuts (auto) 1.3 L Absolute Lymphs (auto) 0.97 Total Counted Not Reportable Sodium Potassium Chloride Carbon Dioxide Anion Gap BUN Creatinine Estim Creat Clear Calc Est GFR (MDRD) Af Amer Est GFR (MDRD) Non-Af BUN/Creatinine Ratio Glucose Calcium Magnesium Troponin I < 0.02 < 0.02 TSH POC Glucose 07/12/17 07/12/17 07/12/17 06:46 06:46 06:48 WBC RBC Hgb Hct MCV MCH MCHC RDW RDW Differential Plt Count MPV Immature Gran % (Auto) Neut % (Auto) Lymph % (Auto) [place] % (Auto) Eos % (Auto) Baso % (Auto) Absolute Neuts (auto) Absolute Lymphs (auto) Total Counted Sodium 144 Potassium 4.0 Chloride 113 H Carbon Dioxide 21.0 Anion Gap 10 BUN 9 Creatinine 0.83 Estim Creat Clear Calc 49.79 Est GFR (MDRD) Af Amer 86 Est GFR (MDRD) Non-Af 71 BUN/Creatinine Ratio 10.9 Glucose 98 Calcium 7.9 L Magnesium 1.9 Troponin I < 0.02 TSH 2.17 POC Glucose 102 07/12/17 07/12/17 07/12/17 11:34 13:10 16:43 WBC RBC Hgb Hct MCV MCH MCHC RDW RDW Differential Plt Count MPV Immature Gran % (Auto) Neut % (Auto) Lymph % (Auto) [place] % (Auto) Eos % (Auto) Baso % (Auto) Absolute Neuts (auto) Absolute Lymphs (auto) Total Counted Sodium Potassium Chloride Carbon Dioxide Anion Gap BUN Creatinine Estim Creat Clear Calc Est GFR (MDRD) Af Amer Est GFR (MDRD) Non-Af BUN/Creatinine Ratio Glucose Calcium Magnesium Troponin I < 0.02 TSH POC Glucose 147 H 178 H 07/12/17 07/13/17 07/13/17 21:54 06:49 10:53 WBC RBC Hgb Hct MCV MCH MCHC RDW RDW Differential Plt Count MPV Immature Gran % (Auto) Neut % (Auto) Lymph % (Auto) [place] % (Auto) Eos % (Auto) Baso % (Auto) Absolute Neuts (auto) Absolute Lymphs (auto) Total Counted Sodium Potassium Chloride Carbon Dioxide Anion Gap BUN Creatinine Estim Creat Clear Calc Est GFR (MDRD) Af Amer Est GFR (MDRD) Non-Af BUN/Creatinine Ratio Glucose Calcium Magnesium Troponin I TSH POC Glucose 156 H [address] [facility] Operations: None Procedures: None Summary of Care Provided: The patient is a 77 year old F with a past medical history of paroxysmal atrial fibrillation, hypothyroidism, hyperlipidemia, depression and rheumatoid arthritis on a twice monthly biologic injectable who was sent to the emergency room from her primary care physician's office on 07-27 due to wheezing. She had previously been diagnosed with influenza B and was started on Tamiflu. She received 2 DuoNeb aerosols in the emergency department and developed paroxysmal atrial fibrillation with rapid ventricular response. EKG showed the heart rate to be in the 140s. Chest x-ray showed no infiltrates. Pulse ox was 98-100% on 2 L. CTA of the chest showed no pulmonary emboli. Significant lab at admission included a white blood cell count of 3.5 and low potassium on labs obtained from PCP office. TSH was normal at 2.17. She was started on Cardizem and transferred to the progressive care unit where she converted to normal sinus rhythm. Intravenous steroids and aerosolized bronchodilators were ordered. She was continued on Tamiflu. Dr. Balderas was consulted. Serial troponins were negative. Dr. Balderas felt the atrial fibrillation was related to the stress of influenza B and recommended we continue to treat her respiratory illness. He did not feel anticoagulation or repeat ECHO and stress were indicated. She gradually improved and on 07/13/17 she felt ready for discharge. Pulse ox ranged from 94-98% on RA on the day of discharge and she did not desaturate with ambulation. Auscultation of the lungs revealed them to be CTA without wheezing. She completed 5 days of Tamiflu while in the hospital and it was discontinued. She was discharged with Prescriptions for Mucinex and a prednisone taper. She will follow-up with her primary care physician, Dr. Reid Barney, in 7-[address] Balderas recommended a 30 day event monitor and a prescription was written prior to discharge and she will follow up with cardiology to obtain a monitor when one is available. This note was generated with [employer] dictation software. It may contain incorrect words, spelling, and punctuation that were not noted in checking the note before signing. Discharge Activity: - - Avoid exposure to any strong smells such as bleach, cleaning products, strong colognes or perfumes, paint fumes and smoke of any kind. Avoid sudden exposure to cold air because this can cause bronchospasm. You may want to cover your mouth when you go outside in the winter. Avoid exposure to anyone who is sick with a cough or sore throat. Call your doctor if you observe: Fever of 101 or Higher, Shortness of breath, Dizziness, Chest pain, - - any increase in cough or change in the sputum Home Medications: Medications to take at Discharge Atorvastatin Calcium [Lipitor] 20 mg PO QHS 10/17/14 Ergocalciferol [Vitamin D] 5,000 unit PO DAILY 10/17/14 Levothyroxine [Synthroid] 100 mcg PO DAILY 10/17/14 Sertraline HCl [Zoloft] 100 mg PO DAILY 10/17/14 tocilizumab 162 mg/0.9 mL subcutaneous syringe 162 mg SC Q2W ml 05/16/17 Diltiazem CD [Cardizem CD] 120 mg PO DAILY 07/11/17 Acetaminophen [Tylenol Tablet] 650 mg PO Q6H PRN PRN tablet 07/13/17 Albuterol Inhaler [Ventolin Hfa] 2 puff INHALATION Q4H PRN PRN #1 inhaler 07/13/17 Guaifenesin [Mucinex] 600 mg PO BID #14 tab 07/13/17 Prednisone 10 mg PO UD #30 tab 07/13/17 Following Prescrptions Were Given to Patient: Albuterol Inhaler [Ventolin Hfa] 2 puff INHALATION Q4H PRN PRN #1 inhaler PRN Reason: SOB/wheezing Prednisone 10 mg PO UD #30 tab Guaifenesin [Mucinex] 600 mg PO BID #14 tab Other Amb Orders: 30-Day Event Recorder [[facility]] Location: None Selected Primary Care Physician: Mauricio Barney [Primary Care Provider] - Please follow up with your Primary Care Physician in: 7-10 days Disposition: Home Minutes spent on discharge:: 30 Medical Necessity - Tobacco Use Smoking Status: Never smoker Meaningful Use Info Meaningful Use Diagnoses (Choose all that apply): None applicable Code Visit Inpatient E&M: 33737 Disch Hosp
== END 2017-07-13 18:00 | disposition home or self-care (01) | DRG 195 ==
PROVIDERS: Admitting Provider Internal Medicine; Family Provider Family Medicine; PCP Family Medicine; Visit Provider Internal Medicine
DX: J10.1 Influenza due to other identified influenza virus with other respiratory manifestations (principal); I48.0 Paroxysmal atrial fibrillation; M06.9 Rheumatoid arthritis, unspecified; R73.9 Hyperglycemia, unspecified; T38.0X5A Adverse effect of glucocorticoids and synthetic analogues, initial encounter; Y92.9 Unspecified place or not applicable; E87.6 Hypokalemia; E03.9 Hypothyroidism, unspecified; E78.5 Hyperlipidemia, unspecified; M81.0 Age-related osteoporosis without current pathological fracture; F39 Unspecified mood [affective] disorder; F41.8 Other specified anxiety disorders; Z79.899 Other long term (current) drug therapy; Z86.718 Personal history of other venous thrombosis and embolism; Z87.11 Personal history of peptic ulcer disease
CPT/HCPCS: 36415; 80048; 82962; 83735; 84443; 84484; 85025; 93005; 94640; 99251; J7030; A4216; G0463

== ENCOUNTER → 2017-07-21 10:38 | Outpatient (CLI) | payer MEDICARE, SELFPAY ==
[2017-07-21 11:49] LABS: International Normalized Ratio 1.2; Prothrombin Time (Protime)PT. 14.7 SECONDS (11.7-14.9)
== END ==
PROVIDERS: Family Provider Family Medicine; PCP Family Medicine; Visit Provider Internal Medicine Cardiovascular Disease
DX: I48.91 Unspecified atrial fibrillation (principal); Z79.01 Long term (current) use of anticoagulants
CPT/HCPCS: 36415; 85610

== ENCOUNTER 2017-08-02 15:16 | Outpatient (RCR) | payer MEDICARE, SELFPAY ==
[2017-07-25 13:53] LABS: International Normalized Ratio 1.3; Prothrombin Time (Protime)PT. 15.8 SECONDS (11.7-14.9)
[2017-08-02 16:07] LABS: International Normalized Ratio 1.5; Prothrombin Time (Protime)PT. 17.8 SECONDS (11.7-14.9)
== END 2017-08-02 16:00 | disposition home or self-care (01) ==
LOC: LAB 15:16
PROVIDERS: Family Provider Family Medicine; PCP Family Medicine; Visit Provider Internal Medicine Cardiovascular Disease
DX: I48.91 Unspecified atrial fibrillation (principal); Z79.01 Long term (current) use of anticoagulants
CPT/HCPCS: 36415; 85610

== ENCOUNTER → 2017-08-22 14:09 | Outpatient (CLI) | payer MEDICARE, SELFPAY ==
[2017-08-22 15:20] LABS: International Normalized Ratio 1.8; Prothrombin Time (Protime)PT. 21.3 SECONDS (11.7-14.9)
== END ==
PROVIDERS: Family Provider Family Medicine; PCP Family Medicine; Visit Provider Internal Medicine Cardiovascular Disease
DX: I48.91 Unspecified atrial fibrillation (principal); Z79.01 Long term (current) use of anticoagulants
CPT/HCPCS: 36415; 85610

== ENCOUNTER → 2017-09-02 14:49 | Outpatient (CLI) | payer MEDICARE, SELFPAY ==
--- NOTE | 2017-09-02 14:52 | ECHOD_ITS ---
Reason For Study: CHF Procedure This was a 2D Doppler, Color Flow transthoracic echocardiogram. Exam performed in department. Left Ventricle Normal size and thickness. The estimated ejection fraction is 65 %. Stage 1 diastolic dysfunction. No regional wall motion abnormalities noted. Right Ventricle Normal size and thickness. Normal systolic function. Atria Normal left atrium. Normal right atrium. Normal atrial septum. Mitral Valve The mitral valve is structurally normal. No prolapse or stenosis seen. Tricuspid Valve Normal tricuspid valve. Trivial tricuspid valve insufficiency. Right ventricular systolic pressure estimated to be 33 mmHg. Aortic Valve Normal aortic valve. Pulmonic Valve Normal pulmonic valve. Great Vessels Normal aortic root. Normal arch. Normal inferior vena cava. Inferior vena cava collapse with sniff. Pericardium/Pleural No pericardial effusion. MMode/2D Measurements & Calculations LVIDd: 4.6 cm IVSd: 1.1 cm Ao root diam: 2.9 cm LVIDs: 2.9 cm LVPWd: 0.91 cm LA dimension: 4.2 cm RVDd: 2.7 cm FS: 36.8 % LAV(MOD-bp): 60.8 ml LA A4 area: 16.1 cm2 RA A4 area: 11.2 cm2 LAV(MOD-bp) Indexed: 31.4 ml/m2 LAV(MOD-sp2): 62.2 ml LAV(MOD-sp4): 46.8 ml Doppler Measurements & Calculations MV E max vito: 68.9 cm/sec Lat Peak E' Vito: 8.8 cm/sec Med Peak E' Vito: 6.6 cm/sec MV A max vito: 85.0 cm/sec E/E' lat: 7.8 E/E' med: 10.4 MV E/A: 0.81 Ao V2 max: 133.5 cm/sec LV V1 max: 128.0 cm/sec PA V2 max: 97.3 cm/sec Ao max P.1 mmHg LV V1 max P.6 mmHg TR max vito: 258.3 cm/sec TR max P.7 mmHg Interpretation Summary The estimated ejection fraction is 65 %. Stage 1 diastolic dysfunction. Trivial tricuspid valve insufficiency. Right ventricular systolic pressure estimated to be 33 mmHg. Compared to echo report dated 10/26/2014, no appreciable chanes noted. RVSP has increased from 24 to 33 mm Hg. Ordering Physician: Cosmo Balderas Performed By: Brenda Vela, AME, RVT
== END ==
PROVIDERS: Family Provider Family Medicine; PCP Family Medicine; Visit Provider Internal Medicine Cardiovascular Disease
DX: I48.0 Paroxysmal atrial fibrillation (principal)
CPT/HCPCS: 93306

== ENCOUNTER 2017-09-07 13:41 | Outpatient (RCR) | payer MEDICARE, SELFPAY ==
[2017-08-13 13:07] LABS: International Normalized Ratio 1.6; Prothrombin Time (Protime)PT. 19.5 SECONDS (11.7-14.9)
[2017-08-30 15:40] LABS: International Normalized Ratio 1.6; Prothrombin Time (Protime)PT. 19.5 SECONDS (11.7-14.9)
[2017-09-07 14:37] LABS: International Normalized Ratio 1.7; Prothrombin Time (Protime)PT. 20.4 SECONDS (11.7-14.9)
== END 2017-09-07 14:00 | disposition home or self-care (01) ==
LOC: LAB 13:41
PROVIDERS: Family Provider Family Medicine; PCP Family Medicine; Visit Provider Internal Medicine Cardiovascular Disease
DX: I48.91 Unspecified atrial fibrillation (principal); Z79.01 Long term (current) use of anticoagulants
CPT/HCPCS: 36415; 85610

== ENCOUNTER → 2017-09-13 09:49 | Outpatient (CLI) | payer MEDICARE, SELFPAY ==
--- NOTE | 2017-09-13 09:49 | DT_ITS ---
This patient was seen during an EMR downtime September 12, 2017 - September 19, 2017. This patient may have a combination of paper and electronic documentation or all paper documentation. All documentation is viewable within the e-chart portion of [employer] for each patient visit.
--- NOTE | 2017-09-13 11:23 | STE_ITS ---
Reason For Study: AFIB, DYSPNEA Stress Results Protocol: Dobutamine Stress Echocardiogram Maximum Predicted HR: 144 bpm Target HR: 122 bpm% Maximum Predicted HR: 90 % DurationHeart Rate Stage (mm:ss) (bpm) BPDos e Comment BASELINE 61 137/82 DSE- 10 MCG 3:11 60 137/7510.00 DSE- 20 MCG 3:07 85 146/7620.00 DSE- 30 MCG 4:40 12 9 143/7230.00NO AFIB, NO SX RECOVERY 83 147/82 Stress Duration: 10:58 mm:ss Maximum Stress HR: 129 bpm Baseline Echocardiogram Findings The estimated ejection fraction is 65 %. Stress Echo Wall motion Data Resting WMIntermediate WMStress WM Resting Wall Motion Wall Motion Stress No regional wall motion No regional wall motion abnormalities noted. abnormalities noted. EKG Data Normal intervals are noted. The patient was titrated from 10 mcg to a maximun of 30 mcg of dobutamine during the stress. The maximum heart rate attained was 129 beats per minute. This was 89% of maximum predicted heart rate. During dobutamine infusion, there were no ST or T wave changes noted to suggest ischemia. No clinical angina was noted. Interpretation Summary NORMAL ADEQUATE DOBS ECHO. NEGATIVE FOR ISCHEMIA BY EKG AND ECHO CRITERIA. NO ANGINA, NO SYMPTOMS. NO ARRHYTHMIAS NOTED. FINAL LVEF 75%. The estimated ejection fraction is 65 %. The patient was titrated from 10 mcg to a maximun of 30 mcg of dobutamine during the stress. Normal, adequate, dobutamine echocardiogram. Negative for ischemia by EKG and echocardiographic criteria. No anginal symptoms noted. No arrhythmias noted. Test terminated due to the attainment of target heart rate. Final LVEF of 75%. No complications. Ordering Physician: Cosmo Balderas MD Referring Physician: Cosmo Balderas Performed By: Brenda Vela, JOSE LUISCS, RVT
== END ==
PROVIDERS: Family Provider Family Medicine; PCP Family Medicine; Visit Provider Internal Medicine Cardiovascular Disease
DX: I48.0 Paroxysmal atrial fibrillation (principal); I82.409 Acute embolism and thrombosis of unspecified deep veins of unspecified lower extremity; R06.00 Dyspnea, unspecified; Z79.01 Long term (current) use of anticoagulants
CPT/HCPCS: 93017; 93350; J7030; A4216

== ENCOUNTER 2017-10-03 15:38 | Outpatient (RCR) | payer MEDICARE, SELFPAY ==
--- NOTE | 2017-09-19 15:08 | DT_ITS ---
This patient was seen during an EMR downtime September 12, 2017 - September 19, 2017. This patient may have a combination of paper and electronic documentation or all paper documentation. All documentation is viewable within the e-chart portion of [employer] for each patient visit.
[2017-09-19 16:42] LABS: International Normalized Ratio 2.2; Prothrombin Time (Protime)PT. 24.1 SECONDS (11.7-14.9)
[2017-10-03 16:40] LABS: International Normalized Ratio 1.3; Prothrombin Time (Protime)PT. 16.3 SECONDS (11.7-14.9)
[2017-10-03 16:44] LABS: Anion Gap 8 (5-15); BUN 21 mg/dL (7-18); BUN/Creat Ratio 21.3 RATIO (10-20); Chloride 107 mmol/L (98-107); Creatinine, Serum 0.99 mg/dL (0.55-1.02); EST Glomerular Filtration Rate 58 mL/min (>60); Est Glom Filt Rate - Afr Amer 70 mL/min (>60); Glucose 106 mg/dL (74-106); Potassium 3.7 mmol/L (3.5-5.1); Sodium Level 143 mmol/L (136-145)
== END 2017-10-03 17:00 | disposition home or self-care (01) ==
LOC: LAB 15:38
PROVIDERS: Family Provider Family Medicine; PCP Family Medicine; Visit Provider Internal Medicine Cardiovascular Disease
DX: I48.91 Unspecified atrial fibrillation (principal); Z79.01 Long term (current) use of anticoagulants
CPT/HCPCS: 36415; 80048; 85610

== ENCOUNTER 2017-11-07 15:04 | Outpatient (RCR) | payer MEDICARE, SELFPAY ==
[2017-10-10 17:09] LABS: International Normalized Ratio 2.4; Prothrombin Time (Protime)PT. 26.1 SECONDS (11.7-14.9)
[2017-10-24 16:49] LABS: International Normalized Ratio 2.8; Prothrombin Time (Protime)PT. 29.4 SECONDS (11.7-14.9)
[2017-11-07 16:32] LABS: International Normalized Ratio 2.3; Prothrombin Time (Protime)PT. 25.5 SECONDS (11.7-14.9)
== END 2017-11-07 16:00 | disposition home or self-care (01) ==
LOC: LAB 15:04
PROVIDERS: Family Provider Family Medicine; PCP Family Medicine; Visit Provider Internal Medicine Cardiovascular Disease
DX: I48.91 Unspecified atrial fibrillation (principal); Z79.01 Long term (current) use of anticoagulants
CPT/HCPCS: 36415; 85610

== ENCOUNTER 2017-12-06 14:02 | Outpatient (RCR) | payer MEDICARE, SELFPAY ==
[2017-12-06 16:54] LABS: International Normalized Ratio 1.7; Prothrombin Time (Protime)PT. 19.9 SECONDS (11.7-14.9)
== END 2017-12-06 15:00 | disposition home or self-care (01) ==
LOC: LAB 14:02
PROVIDERS: Family Provider Family Medicine; PCP Family Medicine; Visit Provider Internal Medicine Cardiovascular Disease
DX: I48.91 Unspecified atrial fibrillation (principal); Z79.01 Long term (current) use of anticoagulants
CPT/HCPCS: 36415; 85610

== ENCOUNTER 2018-01-06 15:18 | Outpatient (RCR) | payer MEDICARE, SELFPAY ==
[2017-12-23 11:27] LABS: Prothrombin Time (Protime)PT. 22.4 SECONDS (11.7-14.9)
[2018-01-06 16:09] LABS: International Normalized Ratio 1.8; Prothrombin Time (Protime)PT. 21.2 SECONDS (11.7-14.9)
== END 2018-01-06 17:00 | disposition home or self-care (01) ==
LOC: LAB 15:18
PROVIDERS: Family Provider Family Medicine; PCP Family Medicine; Visit Provider Internal Medicine Cardiovascular Disease
DX: I48.91 Unspecified atrial fibrillation (principal); Z79.01 Long term (current) use of anticoagulants
CPT/HCPCS: 36415; 85610

== ENCOUNTER 2018-01-19 14:52 | Outpatient (RCR) | payer MEDICARE, SELFPAY ==
[2018-01-19 15:28] LABS: International Normalized Ratio 1.9; Prothrombin Time (Protime)PT. 21.5 SECONDS (11.7-14.9)
== END 2018-01-19 16:00 | disposition home or self-care (01) ==
LOC: LAB 14:52
PROVIDERS: Family Provider Family Medicine; PCP Family Medicine; Referring Provider Internal Medicine Cardiovascular Disease; Visit Provider Internal Medicine Cardiovascular Disease
DX: I48.91 Unspecified atrial fibrillation (principal); Z79.01 Long term (current) use of anticoagulants
CPT/HCPCS: 36415; 85610

== ENCOUNTER 2018-03-07 15:09 | Outpatient (RCR) | payer MEDICARE, SELFPAY ==
[2018-02-10 17:07] LABS: Prothrombin Time (Protime)PT. 22.9 SECONDS (11.7-14.9)
[2018-02-24 14:35] LABS: International Normalized Ratio 1.6; Prothrombin Time (Protime)PT. 19.1 SECONDS (11.7-14.9)
[2018-03-07 16:27] LABS: International Normalized Ratio 1.8; Prothrombin Time (Protime)PT. 20.6 SECONDS (11.7-14.9)
== END 2018-03-10 11:15 | disposition home or self-care (01) ==
LOC: LAB 15:09
PROVIDERS: Family Provider Family Medicine; PCP Family Medicine; Referring Provider Internal Medicine Cardiovascular Disease; Visit Provider Internal Medicine Cardiovascular Disease
DX: I48.91 Unspecified atrial fibrillation (principal); Z79.01 Long term (current) use of anticoagulants
CPT/HCPCS: 36415; 85610

== ENCOUNTER 2018-03-17 18:04 | Inpatient (IN) | payer MEDICARE, SELFPAY ==
[2018-03-13 11:15] VITALS: BMI 31.8
[2018-03-17 18:06] VITALS: BP 133/76; PULSE 70; PULSE 73; RESP 14; RESP 18; TEMP 36.7; O2SAT 95; O2SAT 98; BMI 34.0
--- NOTE | 2018-03-17 18:35 | CT_ITS ---
STUDY: CT LUMBAR SPINE WITHOUT CONTRAST REASON FOR EXAM: Female, 77 years old. Status post fall down steps. Buttock hematoma. RADIATION DOSAGE (If Supplied By Facility): CTDIvol = ( 32.41 ) mGy, DLP = ( 2397.93 ) mGycm TECHNIQUE: The patient was scanned in a multi detector CT scanner. High resolution transaxial imaging was performed. Images were obtained from to . Sagittal and coronal images were reconstructed. Individualized dose optimization techniques were used for this CT. COMPARISON: None FINDINGS: Normal lumbar lordosis. There is no substantial scoliosis. Normal vertebrae of the lumbar spine. T12-L1: Unremarkable. L1-2: Normal endplates. Normal disc height and morphology. Normal bilateral facet joints. There is calcification of the left ligamentum flavum. Normal central canal and bilateral lateral recesses. Normal bilateral intervertebral neural foramina. L2-3: There is suspected disruption of the superior endplate of L3, with minimal loss of vertebral body height. Normal disc height and morphology. Normal bilateral facet joints. Normal central canal and bilateral lateral recesses. Normal bilateral intervertebral neural foramina. L3-4: Normal endplates. Normal disc height and morphology. Normal bilateral facet joints. Normal central canal and bilateral lateral recesses. Normal bilateral intervertebral neural foramina. L4-5: Normal endplates. Normal disc height and morphology. Normal bilateral facet joints. Normal central canal and bilateral lateral recesses. Normal bilateral intervertebral neural foramina. L5-S1: Normal endplates. Normal disc space height with vacuum phenomenon. There is a small, broad-based central disc protrusion. Normal bilateral facet joints. Normal central canal and bilateral lateral recesses. Normal bilateral intervertebral neural foramina. Normal visualized paraspinous soft tissue structures. The aorta is normal in caliber. CT/Spine Lumbar without Contrast IMPRESSION: 1. Suspected acute L3 fracture without significant loss of vertebral body height. 2. Noncompressive L5-S1 disc protrusion. Electronically Signed: Nancy Bryant MD at 20:06 EST Tel , Service support ,
--- NOTE | 2018-03-17 18:35 | CT_ITS ---
STUDY: CT PELVIS WITHOUT CONTRAST REASON FOR EXAM: Female, 77 years old. Fell down steps. RADIATION DOSAGE (If Supplied By Facility): CTDIvol = ( 32.41 ) mGy, DLP = ( 2397.93 ) mGycm TECHNIQUE: Transaxial imaging of the pelvis was performed with oral contrast, and without intravenous administration of contrast material. Individualized dose optimization techniques were used for this CT. COMPARISON: None. FINDINGS: There is no free fluid or hematoma in the pelvis. The bladder is well-distended and is unremarkable. There is no bowel obstruction. Cortical margins of the L3 vertebral body appear fractured without significant loss of vertebral body height. There is otherwise no evidence of fracture. Degenerative changes of the lower lumbar spine are noted. Sacral ala and bony pelvis are intact. Hip joints are unremarkable. Proximal femora and acetabulae are intact. There is a soft tissue hematoma in the right buttock measuring approximately 8 x 8.5 cm. Swelling and edema of the right gluteus david is noted. CT/Pelvis without IV Contrast IMPRESSION: Suspected L3 fracture. Large right buttock hematoma. Electronically Signed: Nancy Bryant MD at 20:17 EST Tel , Service support ,
[2018-03-17 19:00] LABS: Absolute Lymphocyte Count 1.22 X10^3/ul (0.83-4.51); Absolute Neutrophil Count 11.7 X10^3/uL (2.0-7.7); Hematocrit 37.4 % (37-47); Hemoglobin 12.5 g/dl (12.0-15.0); Lymphocyte # 1.22 X10^3/ul (4.0); Lymphocyte % 8.7 % (19-41); Mean Corp Hgb Conc 33.4 g/gl (32-36); Mean Corpuscular Hgb 31.7 pg (27.0-32.0); Mean Corpuscular Volume 94.9 fL (81-99); Mean Platelet Vol. 10.4 fl (6.2-12.0); Monocyte# 1.12 X10^3/uL; Neutrophil % 83.2 % (47-70); Platelet Count 253 K/mm3 (150-450); RBC Distribution Width CV 12.8 % (11.6-14.6); RBC Distribution Width SD 45.1 fl (35.1-43.9); Red Blood Count 3.94 M/mm3 (4.2-5.4); White Blood Count 14.1 K/mm3 (4.4-11.0)
[2018-03-17 19:01] LABS: POSITIVE COUNT NO; POSITIVE DIFFERENTIAL NO; POSITIVE MORPHOLOGY NO
[2018-03-17] MEDS: Ondansetron 4 MG/2 ML Vial IV (19:07)
[2018-03-17] MEDS: Morphine 4 MG/ML Syringe IV ×2 (19:07→21:14)
[2018-03-17 19:08] LABS: International Normalized Ratio 3.1; Prothrombin Time (Protime)PT. 31.8 SECONDS (11.7-14.9)
[2018-03-17 19:10] LABS: Anion Gap 10 (5-15); BUN 20 mg/dL (7-18); BUN/Creat Ratio 20.5 RATIO (10-20); Calcium,Total 8.2 mg/dL (8.5-10.1); Chloride 110 mmol/L (98-107); Creatinine, Serum 0.98 mg/dL (0.55-1.02); EST Glomerular Filtration Rate 59 mL/min (>60); Est Glom Filt Rate - Afr Amer 71 mL/min (>60); Estimated Creatinine Clearance 42.17 ml/min; Glucose 151 mg/dL (74-106); Potassium 4.1 mmol/L (3.5-5.1); Sodium Level 143 mmol/L (136-145)
[2018-03-17 19:14] LABS: CPK Total, Creatine Kinase 108 U/L (26-192)
[2018-03-17 20:31] VITALS: BP 102/52; PULSE 52; RESP 20; O2SAT 90
--- NOTE | 2018-03-17 21:48 | ED.DCSUM_ITS ---
- ER Visit Summary Date of Service: 03/17/18 Chief Complaint: Fall History of Present Illness: The patient is a 77 F presenting for evaluation after fall. Patient states that she was descending her basement stairs. She suffered a mechanical fall where she fell directly onto her buttock and right side. Patient states that she did not hit her head or lose consciousness. She is complaining of pain in her lower back, right buttock, and some radiation down her right leg. She denies any numbness or weakness. Patient is on anticoagulation for atrial fibrillation. Review of systems otherwise negative. Physical Examination: Primary survey: Airway is patent, breath sounds equal bi lateral, central peripheral pulses 2+ and symmetric, GCS 15 out of 15. Vitals within normal limits. Secondary survey: General: Well-nourished well-developed no acute distress Head: Normocephalic atraumatic Eyes: PERRLA, EOMI ENT: TMs clear no hemotympanum no drainage Neck: Nontender full range of motion, no step-offs noted Heart: Regular rate and rhythm no murmurs Lungs: Respirations nondistressed, lung sounds clear to auscultation bilaterally, chest nontender, normal chest excursion bilaterally Abdomen: Soft nontender nondistended normal bowel sounds no palpable abdominal masses Back: Tender in the lumbar spine without any evidence of step-offs Extremities: Extremity exam is atraumatic except for examination of the patient's right gluteal region which shows a significantly large hematoma that is firm and tender to palpation. Skin: Normal color no trauma Neuro: Alert and oriented ?4, GCS 15 out of 15, no lateralizing neurological deficits. Test Results: CBC shows leukocytosis of 14, INR is 3.1, CK is normal. CT lumbar spine shows an L3 compression fracture with no loss of height. CT of the pelvis shows a large gluteal hematoma. Emergency Department Course and Treatment: Patient presented secondary to mechanical fall. Primary and secondary surveys as noted above showed only injuries to the patient's back and gluteal region. She was found to have a compression fracture and a large hematoma. Given the patient's anticoagulation status and her large hematoma in her gluteal region there is some concern for the possibility of development of a compartment syndrome. I did discuss this with orthopedics, who agrees to see the patient if needed for compartment syndrome. Patient was admitted for observation and pain control. Disposition: Admission Impression: 1. Right gluteal hematoma 2. L3 compression fracture 3. Mechanical fall This note was generated with [employer] dictation software. It may contain incorrect words, spelling, and punctuation that were not noted in review of the chart prior to signing ED Disposition - Plan for ED Patient: Disposition: Acute Care [facility] Chief Complaint: Fall
[2018-03-17 21:56] VITALS: BP 108/59; PULSE 52; RESP 16; O2SAT 96
--- NOTE | 2018-03-17 22:41 | HP.PCM_ITS ---
Problem List (1) Fall Status: Acute (2) Hematoma Status: Acute (3) DVT (deep venous thrombosis) Status: Chronic Comment: right lower leg (4) Hyperlipidemia Status: Chronic Qualifiers: Hyperlipidemia type: pure hypercholesterolemia Qualified Code(s): E78.00 - Pure hypercholesterolemia, unspecified; E78.0 - Pure hypercholesterolemia (5) Paroxysmal atrial fibrillation Status: Chronic History of Present Illness Date of Admission: 03/17/18 Chief Complaint: Fall and hematoma on buttock The patient is a 77 year old F with past medical history as below who presents after falling down a couple of stairs at home. She says that the fall was mechanical in nature, she was bringing a walker out of the attic and she missed a step. The walker was for her daughter's [id number]. This happened earlier in the morning and as the day progressed she had worsening pain and could not sit upright and would become lightheaded on occasion. When she presented to the ER she was found to have a large hematoma on her right buttock that was very firm and indurated. She denies hitting her head, and is not dizzy, lightheaded at the moment. Lumbar spine spine CT demonstrates a possible acute L3 fracture without significant loss of vertebral body height, as well as a noncompressive L5-S1 disc protrusion. She is not complaining of any significant midline back pain most of her pain is in her right buttock and occasionally down to her legs. She states that she can move her toes feels her legs. She currently takes Coumadin for her A. fib, and she used to be on Eliquis however she at a time had a rectal bleed that was found to be small bowel and her grease and tallow pumper felt that it would be prudent to put her on Coumadin because the levels could be monitored. Past Medical History Past Medical History (Chronic Problems): Chronic Problems (Last Reviewed 08/26/17 @ 13:09 by Zoë Duke) care home current use of anticoagulant (Chronic) DVT (deep venous thrombosis) (Chronic) right lower leg Hyperlipidemia (Chronic) Paroxysmal atrial fibrillation (Chronic) Medical History: Medical History (Last Reviewed 08/26/17 @ 13:09 by Zoë Duke) DVT (deep venous thrombosis) (Chronic) I82.409 right lower leg Hyperlipidemia (Chronic) E78.5 Paroxysmal atrial fibrillation (Chronic) I48.0 Hypothyroidism E03.9 Immunosuppressed status D89.9 on Humira 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 M81.0 Peptic ulcer disease K27.9 Rheumatoid arthritis M06.9 Atrial fibrillation with RVR (Resolved) I48.91 Cellulitis of left lower extremity L03.116 GI bleed K92.2 History of Clostridium difficile (Inactive) Z87.19 Allergies cephalexin monohydrate [From Keflex] Allergy (Verified 03/17/18 18:05) Hives ethchlorvynol [From Placidyl] Allergy (Verified 03/17/18 18:05) Unknown NSAIDS (Non-Steroidal Anti-Inflamma Allergy (Verified 03/17/18 18:05) Unknown Penicillins [PCN] Allergy (Verified 03/17/18 18:05) Unknown Sulfa (Sulfonamide Antibiotics) Allergy (Verified 03/17/18 18:05) Rash sulfamethoxazole [From Septra] Allergy (Verified 03/17/18 18:05) Unknown trimethoprim [From Septra] Allergy (Verified 03/17/18 18:05) Unknown Home Medications: Ambulatory Orders Medication Instructions Recorded Atorvastatin Calcium [Lipitor] 20 mg PO QHS 10/17/14 Ergocalciferol [Vitamin D] 5,000 unit PO QODAY 10/17/14 Levothyroxine [Synthroid] 100 mcg PO DAILY 10/17/14 Sertraline HCl [Zoloft] 100 mg PO DAILY 10/17/14 Acetaminophen [Tylenol Tablet] 650 mg PO Q6H PRN PRN tab 07/13/17 tocilizumab 162 mg/0.9 mL 162 mg SC Q2W ml 08/26/17 subcutaneous syringe Carvedilol 6.25 mg PO BID 03/17/18 Hydrochlorothiazide [Hctz] 25 mg PO QAM 03/17/18 Warfarin Sodium [Coumadin] 3.5 mg PO SUMO 03/17/18 Warfarin [Coumadin (PBKC)] 5 mg PO [id number] 03/17/18 Surgical History: Surgical History (Last Updated 09/26/17 @ 10:17 by Zoë Duke) H/O colectomy Z90.49 H/O shoulder surgery Z98.890 left H/O total hysterectomy Z90.710 History of arthroplasty of left knee Z96.652 History of bunionectomy of both great toes Z98.890 History of left heart catheterization Onset Date: ~1999 Z98.890 @ [facility] History of right knee joint replacement Z96.651 History of tonsillectomy and adenoidectomy Z98.890 Hx of cholecystectomy Z90.49 surgical debridement left lower extremity Onset Date: ~10/2014 Psychiatric History: Anxiety, Depression EMERGENCY MEDICINE MEDICAL DIRECTOR History: No pertinent EMERGENCY MEDICINE MEDICAL DIRECTOR history Smoking Status: Never smoker - *Family History Maternal Family History: Family History (Last Reviewed 08/26/17 @ 13:09 by Zoë Duke) Father CAD (coronary artery disease) Mother Breast cancer History Items: Cancer - mother had breast CA in her 90's, Unknown Paternal Family History: Family History (Last Reviewed 08/26/17 @ 13:09 by Zoë Duke) Father CAD (coronary artery disease) Mother Breast cancer History Items: Heart Disease, - - aneurysm in her father who from CAD and aneurym at 74 Sibling Family History: Family History (Last Reviewed 08/26/17 @ 13:09 by Zoë Duke) Father CAD (coronary artery disease) Mother Breast cancer History Items: Cancer - she had a brother with throat cancer, - - she had a sister with severe epilepsy who lived in a [place] and Review of Systems Constitutional: Denies: Chills, Fever, Weight Change HEENT: Denies: Head Aches, Sinus Congestion, Sinus Drainage Cardiovascular: Denies: Chest Pain, Palpitations Respiratory: Denies: Cough, Shortness of breath at rest, Sputum production Gastrointestinal: Denies: Abdominal Pain, Nausea, Vomiting Genitourinary: Denies: Dysuria Musculoskeletal: Reports: Muscle pain - Gluteal. Denies: Joint Pain, Joint Tenderness Skin: Denies: Rash, Wounds Neurological: Denies: Numbness, Tingling, Focal weakness Psychiatric: Denies: Anxiety, Depression Hematologic/ Lymphatic: Denies: Easy Bruising, Easy Bleeding VTE Information - Inpt Only VTE Present on Admission: No Patient Problems: Active and Suspected Problems (Last Reviewed 08/26/17 @ 13:09 by Zoë Duke) Fall (Acute) Hematoma (Acute) - Physical Exam General: Alert, Oriented x3, Cooperative, No apparent distress HEENT: Atraumatic, PERRLA, EOMI Neck: Supple, No JVD Lungs: Clear to auscultation, Normal air movement, No rhonchi, No wheeze, No rales Cardiovascular: Regular rate, Regular Rhythm, Normal S1, Normal S2, No murmurs Abdomen: Soft, Non Tender, Non-Distended, No Hepato-splenomegaly Extremities: No edema, Capillary Refill Less than 3 Seconds, Tenderness - Over the right buttock where there is a large hematoma approximately 11 inches in diameter. Skin: No rashes, No breakdown Neurological: Neuro grossly intact, Sensory exam intact to light touch and pain Psych/Mental Status: Normal Affect, Appropriate Vital Signs Temp Pulse Resp BP Pulse Ox 98.0 F 52 L 16 108/59 L 96 03/17/18 18:06 03/17/18 21:56 03/17/18 21:56 03/17/18 21:56 03/17/18 21:56 Oxygen Delivery Method Room Air Weight: 198 lb 3.129 oz Body Mass Index (BMI) 34.0 Laboratory Tests Past 24 Hrs 03/17/18 03/17/18 03/17/18 18:45 18:45 18:45 WBC 14.1 H RBC 3.94 L Hgb 12.5 Hct 37.4 MCV 94.9 MCH 31.7 MCHC 33.4 RDW 12.8 RDW Differential 45.1 H Plt Count 253 MPV 10.4 Immature Gran % (Auto) 0.100 Neut % (Auto) 83.2 H Lymph % (Auto) 8.7 L [place] % (Auto) 8.0 Eos % (Auto) 0.0 Baso % (Auto) 0.0 Absolute Neuts (auto) 11.7 H Absolute Lymphs (auto) 1.22 Total Counted Not Reportable PT 31.8 H INR 3.1 APTT 31.0 Sodium 143 Potassium 4.1 Chloride 110 H Carbon Dioxide 23.0 Anion Gap 10 BUN 20 H Creatinine 0.98 Estim Creat Clear Calc 42.17 Est GFR (MDRD) Af Amer 71 Est GFR (MDRD) Non-Af 59 L BUN/Creatinine Ratio 20.5 H Glucose 151 H Calcium 8.2 L Total Creatine Kinase 03/17/18 18:45 WBC RBC Hgb Hct MCV MCH MCHC RDW RDW Differential Plt Count MPV Immature Gran % (Auto) Neut % (Auto) Lymph % (Auto) [place] % (Auto) Eos % (Auto) Baso % (Auto) Absolute Neuts (auto) Absolute Lymphs (auto) Total Counted PT INR APTT Sodium Potassium Chloride Carbon Dioxide Anion Gap BUN Creatinine Estim Creat Clear Calc Est GFR (MDRD) Af Amer Est GFR (MDRD) Non-Af BUN/Creatinine Ratio Glucose Calcium Total Creatine Kinase 108 Assessment/Plan All Active Problems (Last Reviewed 08/26/17 @ 13:09 by Zoë Duke) Fall (Acute) Hematoma (Acute) Atrial fibrillation with RVR (Resolved) Cellulitis and abscess of leg (Resolved) Influenza B (Resolved) Influenzal bronchiolitis (Resolved) 1. Possible acute L3 compression fx/Right buttock hematoma - Will hold coumadin and monitor INR - OK to be off of coumadin for a few days - SCDs for DVT - Given such mild loss of height, no immediate surgical intervention likely, especially given INR - May need TLSO brace and outpatient f/u - Will monitor for worsening hematoma 2. HTN/HLD/A-fib - BP is stable - c/w home HCTZ, coreg, hold coumadin, INR is 3 3. Hypothyroidism - stable, TSH 2.17 in july - c/w synthroid 4. Depression - stable - c/w zoloft 5. RA - currently controlled with tocilizumab q2 weeks DVT: SCDs Code Visit OBSV E&M: 72858 Initial observation care L3
[2018-03-17 22:56] VITALS: BMI 32.2
[2018-03-17 23:07] VITALS: BP 126/56; PULSE 58; RESP 18; TEMP 36.6; O2SAT 94
[2018-03-18] MEDS: Morphine 4 MG/ML Syringe IV ×4 (00:42→17:07)
[2018-03-18] MEDS: 0.9% NaCl Peripheral Flush Adult/Peds IV ×5 (00:42→21:53)
[2018-03-18] MEDS: Levothyroxine 100 MCG Tablet PO (05:03)
[2018-03-18 05:05] VITALS: BP 107/50; PULSE 59; RESP 16; TEMP 36.5; O2SAT 100
[2018-03-18 07:47] LABS: Absolute Lymphocyte Count 1.22 X10^3/ul (0.83-4.51); Absolute Neutrophil Count 10.1 X10^3/uL (2.0-7.7); Eosinophil# 0.01 X10^3/uL; Eosinophils% 0.1 % (0-5); Hematocrit 34.9 % (37-47); Hemoglobin 11.2 g/dl (12.0-15.0); Lymphocyte # 1.22 X10^3/ul (4.0); Lymphocyte % 9.6 % (19-41); Mean Corp Hgb Conc 32.1 g/gl (32-36); Mean Corpuscular Hgb 31.5 pg (27.0-32.0); Mean Corpuscular Volume 98.3 fL (81-99); Monocyte# 1.36 X10^3/uL; Monocyte% 10.7 % (0-10); Neutrophil # 10.05 X10^3/uL (2.7-7.7); Neutrophil % 79.4 % (47-70); Platelet Count 252 K/mm3 (150-450); RBC Distribution Width CV 13.1 % (11.6-14.6); RBC Distribution Width SD 47.3 fl (35.1-43.9); Red Blood Count 3.55 M/mm3 (4.2-5.4); White Blood Count 12.7 K/mm3 (4.4-11.0)
[2018-03-18 08:05] LABS: POSITIVE COUNT NO; POSITIVE DIFFERENTIAL NO; POSITIVE MORPHOLOGY NO
[2018-03-18 08:09] LABS: Anion Gap 6 (5-15); BUN 27 mg/dL (7-18); BUN/Creat Ratio 20.6 RATIO (10-20); Calcium,Total 8.4 mg/dL (8.5-10.1); Chloride 110 mmol/L (98-107); Creatinine, Serum 1.31 mg/dL (0.55-1.02); EST Glomerular Filtration Rate 42 mL/min (>60); Est Glom Filt Rate - Afr Amer 51 mL/min (>60); Estimated Creatinine Clearance 31.55 ml/min; Glucose 147 mg/dL (74-106); Potassium 4.7 mmol/L (3.5-5.1); Sodium Level 144 mmol/L (136-145)
[2018-03-18 08:26] LABS: Prothrombin Time (Protime)PT. 31.4 SECONDS (11.7-14.9)
[2018-03-18 09:00] VITALS: BP 117/53; PULSE 65; RESP 16; TEMP 36.4; O2SAT 98
[2018-03-18] MEDS: Carvedilol 6.25 MG Tablet PO ×2 (09:28→21:53)
[2018-03-18] MEDS: Sertraline 100 MG Tablet PO (09:28)
[2018-03-18] MEDS: hydroCHLOROthiazide 25 MG Tablet PO (09:28)
[2018-03-18 11:00] VITALS: RESP 18
--- NOTE | 2018-03-18 11:43 | CM.UR ---
See green chain off bearer. Met face to face with patient and her daughter, Introduced myself and my role. gave consent for assessment at this time. Patient does have a handicap bathroom. 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 States that if she needs any help with transfers or ADLs that she will not be able to return home. discussed SNF placement. Patient and daughter are agreeable. States they already discussed it among themselves. First choice is TCU and 2nd choice is [facility]. LVM on TCU referral line anticipating possible admission. Notified MOISES Mcnamara who confirmed that [facility] is in network for her PTHP. Dr. Dudley to see patient to determine if surgical intervention is needed for hematoma. Case mgmt will continue to follow. Georgina Cobb RN, [facility].
[2018-03-18] MEDS: Phytonadione (Vit K) 10 MG/ML Ampul 5 MG PO (11:49)
[2018-03-18] MEDS: oxyCODONE 5 MG Tablet 10 MG PO ×3 (11:51→22:31)
--- NOTE | 2018-03-18 12:22 | PCM.CONS.GEN ---
Reason for Consult Date of Consultation: 03/18/18 Reason for Consultation: Traumatic hematoma right gluteal area. REFERRING PHYSICIAN: Dr. Decker. STRINGER MACHINE TENDER: Dr. Dudley. History of Present Illness: The patient is a 77 year old F who presented to the ED yesterday after falling down a couple of stairs at home. She says that the fall was mechanical in nature, she was bringing a walker out of the attic and she missed a step. The walker was for her daughter's [id number]. This happened earlier in the morning and as the day progressed she had worsening pain and could not sit upright and would become lightheaded on occasion. When she presented to the ER she was found to have a large hematoma on her right buttock that was very firm and indurated with ecchymosis. She denies hitting her head. She states that she can move her toes and she can feel her legs. She currently takes Coumadin for her atrial fibrillation. She underwent a CT Pelvis on 03/17/18 which showed a soft tissue hematoma in the right buttock measuring approximately 8 x 8.5 cm. Swelling and edema of the right gluteus david is noted. Hgb on admission was 12.5. The next day the Hgb was 11.2. I was asked to evaluate this patient for surgical options for treatment. Past Medical History Past Medical History (Chronic Problems): Chronic Problems (Last Updated 03/21/18 @ 22:18 by Gage Dudley MD) Atrial fibrillation (Chronic) Hypothyroidism (Chronic) 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 (Chronic) Peptic ulcer disease (Chronic) Rheumatoid arthritis (Chronic) Gastrointestinal bleed (Chronic) Vitamin D deficiency (Chronic) Depression (Chronic) long-term current use of anticoagulant (Chronic) DVT (deep venous thrombosis) (Chronic) right lower leg Hyperlipidemia (Chronic) Paroxysmal atrial fibrillation (Chronic) Medical History: Medical History (Last Updated 03/21/18 @ 22:18 by Gage Dudley MD) Vitamin D deficiency (Chronic) E55.9 DVT (deep venous thrombosis) (Chronic) I82.409 right lower leg Hyperlipidemia (Chronic) E78.5 Paroxysmal atrial fibrillation (Chronic) I48.0 Hypothyroidism E03.9 Immunosuppressed status D89.9 on Humira 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 M81.0 Peptic ulcer disease K27.9 Rheumatoid arthritis M06.9 Atrial fibrillation with RVR (Resolved) I48.91 Cellulitis of left lower extremity L03.116 GI bleed K92.2 History of Clostridium difficile (Inactive) Z87.19 Allergies cephalexin monohydrate [From Keflex] Allergy (Verified 03/17/18 18:05) Hives ethchlorvynol [From Placidyl] Allergy (Verified 03/17/18 18:05) Unknown NSAIDS (Non-Steroidal Anti-Inflamma Allergy (Verified 03/17/18 18:05) Unknown Penicillins [PCN] Allergy (Verified 03/17/18 18:05) Unknown Sulfa (Sulfonamide Antibiotics) Allergy (Verified 03/17/18 18:05) Rash sulfamethoxazole [From Septra] Allergy (Verified 03/17/18 18:05) Unknown trimethoprim [From Septra] Allergy (Verified 03/17/18 18:05) Unknown Current Medications Acetaminophen (Tylenol) 650 mg PO Q6H PRN Atorvastatin Calcium (Lipitor) 20 mg PO QHS [facility] Carvedilol (Coreg) 6.25 mg PO BID [facility] Cholecalciferol (Vitamin D) 5,000 unit PO QODAY ERIK Hydrochlorothiazide (Hctz) 25 mg PO QAM [facility] Levothyroxine Sodium (Synthroid) 100 mcg PO DAILY@0600 [facility] Magnesium Hydroxide (Milk Of Magnesia) 30 ml PO DAILY PRN Morphine Sulfate () 4 mg IV Q4H PRN Oxycodone HCl (Oxyir) 10 mg PO Q4H PRN Sertraline HCl (Zoloft) 100 mg PO DAILY [facility] Home Medications: Ambulatory Orders Medication Instructions Recorded Atorvastatin Calcium [Lipitor] 20 mg PO QHS 10/17/14 Ergocalciferol [Vitamin D] 5,000 unit PO QODAY 10/17/14 Levothyroxine [Synthroid] 100 mcg PO DAILY 10/17/14 Sertraline HCl [Zoloft] 100 mg PO DAILY 10/17/14 Acetaminophen [Tylenol Tablet] 650 mg PO Q6H PRN PRN tab 07/13/17 Carvedilol 6.25 mg PO BID 03/17/18 Hydrochlorothiazide [Hctz] 25 mg PO QAM 03/17/18 Doxycycline 100 mg PO BID 03/21/18 Ensure Enlive 120 ml PO 4X/DAY 03/21/18 Oxycodone [Oxyir] 5 mg PO Q6H PRN 3 Days #18 tab 03/21/18 fentaNYL patch [Duragesic Patch] 12 mcg TRANSDERM. Q3D 03/21/18 Surgical History: Surgical History (Last Updated 09/26/17 @ 10:17 by Zoë Duke) H/O colectomy Z90.49 H/O shoulder surgery Z98.890 left H/O total hysterectomy Z90.710 History of arthroplasty of left knee Z96.652 History of bunionectomy of both great toes Z98.890 History of left heart catheterization Onset Date: ~1999 Z98.890 @ [facility] History of right knee joint replacement Z96.651 History of tonsillectomy and adenoidectomy Z98.890 Hx of cholecystectomy Z90.49 surgical debridement left lower extremity Onset Date: ~10/2014 Psychiatric History: Anxiety, Depression MRI SUPERVISOR History: No pertinent MRI SUPERVISOR history Smoking Status: Never smoker - *Family History Maternal Family History: Family History (Last Reviewed 08/26/17 @ 13:09 by Zoë Duke) Father CAD (coronary artery disease) Mother Breast cancer History Items: Cancer - mother had breast CA in her 90's, Unknown Paternal Family History: Family History (Last Reviewed 08/26/17 @ 13:09 by Zoë Duke) Father CAD (coronary artery disease) Mother Breast cancer History Items: Heart Disease, - - aneurysm in her father who from CAD and aneurym at 74 Sibling Family History: Family History (Last Reviewed 08/26/17 @ 13:09 by Zoë Duke) Father CAD (coronary artery disease) Mother Breast cancer History Items: Cancer - she had a brother with throat cancer, - - she had a sister with severe epilepsy who lived in a [place] and Review of Systems Comment: Constitutional: Denies: Chills, Fever, Weight Change. HEENT: Denies: Head Aches, Sinus Congestion, Sinus Drainage. Cardiovascular: Denies: Chest Pain, Palpitations. Respiratory: Denies: Cough, Shortness of breath at rest, Sputum production. Gastrointestinal: Denies: Abdominal Pain, Nausea, Vomiting. Genitourinary: Denies: Dysuria. Musculoskeletal: Reports: Muscle pain - Gluteal. Denies: Joint Pain, Joint Tenderness. Skin: Denies: Rash, Wounds. Neurological: Denies: Numbness, Tingling, Focal weakness. Psychiatric: Denies: Anxiety, Depression. Hematologic/ Lymphatic: Denies: Easy Bruising, Easy Bleeding - Physical Exam General: Alert, Oriented x3. HEENT: PERRLA, EOMI. Neck: Supple, Nontender. No cervical adenopathy. Lungs: Clear to auscultation. Cardiovascular: Regular rate, Regular Rhythm. Abdomen: Soft, Non-Distended. Extremities: No edema, Capillary Refill Less than 3 Seconds, Tenderness over the right buttock where there is a large hematoma that is firm. Measures 10 cm. Skin: Large area of ecchymosis overlying right gluteal area with extension onto proximal posterior thigh. Neurological: CN II - XII grossly intact. Psych/Mental Status: Normal Affect, Appropriate Vital Signs Temp Pulse Resp BP Pulse Ox 97.5 F L 65 18 117/53 L 98 03/18/18 09:00 03/18/18 09:00 03/18/18 11:00 03/18/18 09:00 03/18/18 09:00 Oxygen Flow Rate (L/min) 2 Oxygen Delivery Method Room Air Weight: 187 lb 13.341 oz Body Mass Index (BMI) 32.2 Intake and Output for Last 24 Hours 03/16/18 03/17/18 03/18/18 23:59 23:59 23:59 Intake Total 1450 / 1450 Output Total 300 / 300 Balance 1150 / 1150 Laboratory Tests Past 24 Hrs 03/17/18 03/17/18 03/17/18 18:45 18:45 18:45 WBC 14.1 H RBC 3.94 L Hgb 12.5 Hct 37.4 MCV 94.9 MCH 31.7 MCHC 33.4 RDW 12.8 RDW Differential 45.1 H Plt Count 253 MPV 10.4 Immature Gran % (Auto) 0.100 Neut % (Auto) 83.2 H Lymph % (Auto) 8.7 L [place] % (Auto) 8.0 Eos % (Auto) 0.0 Baso % (Auto) 0.0 Absolute Neuts (auto) 11.7 H Absolute Lymphs (auto) 1.22 Total Counted Not Reportable PT 31.8 H INR 3.1 APTT 31.0 Sodium 143 Potassium 4.1 Chloride 110 H Carbon Dioxide 23.0 Anion Gap 10 BUN 20 H Creatinine 0.98 Estim Creat Clear Calc 42.17 Est GFR (MDRD) Af Amer 71 Est GFR (MDRD) Non-Af 59 L BUN/Creatinine Ratio 20.5 H Glucose 151 H Calcium 8.2 L Total Creatine Kinase 03/17/18 03/18/18 03/18/18 18:45 07:25 07:25 WBC 12.7 H RBC 3.55 L Hgb 11.2 L Hct 34.9 L MCV 98.3 MCH 31.5 MCHC 32.1 RDW 13.1 RDW Differential 47.3 H Plt Count 252 MPV 10.0 Immature Gran % (Auto) 0.200 Neut % (Auto) 79.4 H Lymph % (Auto) 9.6 L [place] % (Auto) 10.7 H Eos % (Auto) 0.1 Baso % (Auto) 0.0 Absolute Neuts (auto) 10.1 H Absolute Lymphs (auto) 1.22 Total Counted Not Reportable PT 31.4 H INR 3.0 APTT Sodium Potassium Chloride Carbon Dioxide Anion Gap BUN Creatinine Estim Creat Clear Calc Est GFR (MDRD) Af Amer Est GFR (MDRD) Non-Af BUN/Creatinine Ratio Glucose Calcium Total Creatine Kinase 108 03/18/18 07:25 WBC RBC Hgb Hct MCV MCH MCHC RDW RDW Differential Plt Count MPV Immature Gran % (Auto) Neut % (Auto) Lymph % (Auto) [place] % (Auto) Eos % (Auto) Baso % (Auto) Absolute Neuts (auto) Absolute Lymphs (auto) Total Counted PT INR APTT Sodium 144 Potassium 4.7 Chloride 110 H Carbon Dioxide 28.0 Anion Gap 6 BUN 27 H Creatinine 1.31 H Estim Creat Clear Calc 31.55 Est GFR (MDRD) Af Amer 51 L Est GFR (MDRD) Non-Af 42 L BUN/Creatinine Ratio 20.6 H Glucose 147 H Calcium 8.4 L Total Creatine Kinase Diagnostic Data Lumbar Spine CT 03/17/18 18:35 IMPRESSION: 1. Suspected acute L3 fracture without significant loss of vertebral body height. 2. Noncompressive L5-S1 disc protrusion. Electronically Signed: Nancy Bryant MD at 20:06 EST Tel , Service support , Pelvis CT 03/17/18 18:35 IMPRESSION: Suspected L3 fracture. Large right buttock hematoma. Electronically Signed: Nancy Bryant MD at 20:17 EST Tel , Service support , Assessment/Plan All Active Problems (Last Updated 03/21/18 @ 22:18 by Gage Dudley MD) Traumatic hematoma of buttock (Acute) Hematoma of right lower extremity (Acute) Compression fracture of L3 vertebra (Acute) Fall (Acute) Hematoma (Acute) Acute blood loss anemia (Acute) Atrial fibrillation with RVR (Resolved) Cellulitis and abscess of leg (Resolved) Influenza B (Resolved) Influenzal bronchiolitis (Resolved) 1. Traumatic hematoma right gluteal area with extension onto proximal posterior thigh. 2. Fall from stairs. 3. bradder use of anticoagulation. CT Pelvis reviewed. It shows a large hematoma on her right gluteal area. Measures 8 x 8.5 cm. There is some firmness that extends off the gluteal crease onto the proximal posterior thigh. It appears to be too large to absorb completely on its own before getting infected. Will closely monitory Hgb daily. At present it is 11.2. Recommend surgical preparation right gluteal area with extension onto proximal posterior thigh with incision and drainage and evacuation and excisional debridement. Would leave the wound open and proceed with postop wound care with the VAC. After discharge, can followup at the [facility]. If there is a plateau in the healing process, can proceed with delayed closure with skin grafting. Her INR today is 3.0. Would like to see it decreased close to the 2 range before proceeding with surgery unless there is clinical evidence of expansion of the hematoma combined with dramatic drop in Hgb in which case a more urgent operative intervention would be necessary. Otherwise if she remains stable, will consider operative intervention on Tuesday or Tuesday. To minimize infection of the hematoma, will start Doxycycline. At the time of surgery, will add Cleocin. Anticipate increased metabolic demands from the surgery. Will check a Prealbumin and encourage nutritional supplementation with protein to help the healing process. Patient was informed of the risks and complications of the procedure including alternatives to surgery. These were discussed with the patient personally. Patient voices understanding and wishes to proceed. Code Visit Inpatient E&M: 65489 Init Hosp L2 - ICD-10 - S30.0xxA, S80.11xA, W19.xxxA, Z79.01
--- NOTE | 2018-03-18 12:24 | CT_ITS ---
STUDY: CT BRAIN WITHOUT CONTRAST REASON FOR EXAM: Female, 77 years old. Fall yesterday. RADIATION DOSAGE (If Supplied By Facility): CTDIvol = ( 44.99 ) mGy, DLP = ( 812.98 ) mGycm TECHNIQUE: Transaxial CT imaging of the brain was performed without administration of intravenous contrast material. Individualized dose optimization techniques were used for this CT. COMPARISON: None. FINDINGS: Normal soft tissue structures. Normal calvarium. There is mild cerebral atrophy with widening of the extra-axial spaces and ventricular dilatation. There are areas of decreased attenuation within the white matter tracts of the supratentorial brain, consistent with microvascular disease changes. Normal basal ganglia and thalami. Normal brainstem. Normal cerebellum. There is no intracranial hemorrhage. There are no findings of an acute ischemic infarction. Normal visualized paranasal sinuses. CT/Brain/Head without Contrast IMPRESSION: Chronic involutional changes without evidence of acute intracranial or calvarial abnormality. Electronically Signed: Adrian Crawford DO at 13:34 EST Tel [phone], Service support ,
[2018-03-18] MEDS: levoFLOXacin IV 500 MG/100 ML BAG 100 MG IV (14:03)
--- NOTE | 2018-03-18 14:04 | CASEMGMT ---
LW/POA in echart, SW printed and DIETARY MANAGER will place in chart. NAA Garza, SAP FICO ARCHITECT
[2018-03-18] MEDS: Doxycycline 100 MG CAPSULE PO ×2 (14:38→21:53)
[2018-03-18 14:59] VITALS: BP 107/52; PULSE 62; RESP 16; RESP 18; TEMP 36.9; O2SAT 98
--- NOTE | 2018-03-18 15:16 | PCM.PROGNOTE ---
Patient Problems: Active and Suspected Problems (Last Reviewed 08/26/17 @ 13:09 by Zoë Duke) Fall (Acute) Hematoma (Acute) Subjective: Patient was seen and examined today, she continues to have pain from the large hematoma on her right buttocks. I had plastic surgery consulted today and they recommended patient have a CT scan of the brain performed to rule out any hematoma from her fall. I also recommended that a reevaluation on the hematoma be carried out on Tuesday and if the patient continued to have severe discomfort in the area, consideration will be made toward opening the area up and draining the hematoma. - Physical Exam General: Alert, Oriented x3, Cooperative, Well developed, Well nourished HEENT: Atraumatic, PERRLA, EOMI, Normocephalic Oral: Moist Mucosa Neck: Supple, No Nuchal Rigidity, Trachea Midline, Thyroid Normal Size and Texture Lungs: Clear to auscultation, Normal air movement, No rhonchi, No wheeze, No rales Cardiovascular: Regular rate, Regular Rhythm, Normal S1, Normal S2, No murmurs, No Ectopic Activity, PMI Normal, No rub noted, No Gallop Abdomen: Bowel Sounds Present, Soft, Non Tender, Non-Distended, No hernias noted Extremities: No clubbing, No cyanosis, No edema, Capillary Refill Less than 3 Seconds Skin: No rashes, No breakdown, - - There is a large hematoma noted on the patient's right buttocks measuring 8-10 cm in length by 6-8 cm in diameter. This area is tender to palpation Musculoskeletal: No Tenderness to Palpation of Joints or Extremities Neurological: Cranial nerves II-XII grossly intact, Neuro grossly intact, Sensory exam intact to light touch and pain, Coordination normal Psych/Mental Status: Normal Affect, Appropriate, Alert and oriented to time, place, person, mood and affect Vital Signs Temp Pulse Resp BP Pulse Ox 98.5 F 62 18 107/52 L 98 03/18/18 14:59 03/18/18 14:59 03/18/18 14:59 03/18/18 14:59 03/18/18 14:59 Oxygen Flow Rate (L/min) 2 Oxygen Delivery Method Room Air Weight: 85.2 kg Body Mass Index (BMI) 32.2 Intake and Output for Last 24 Hours 03/16/18 03/17/18 03/18/18 23:59 23:59 23:59 Intake Total 1450 / 1450 Output Total 300 / 300 Balance 1150 / 1150 Laboratory Tests Past 24 Hrs 03/17/18 03/17/18 03/17/18 18:45 18:45 18:45 WBC 14.1 H RBC 3.94 L Hgb 12.5 Hct 37.4 MCV 94.9 MCH 31.7 MCHC 33.4 RDW 12.8 RDW Differential 45.1 H Plt Count 253 MPV 10.4 Immature Gran % (Auto) 0.100 Neut % (Auto) 83.2 H Lymph % (Auto) 8.7 L [place] % (Auto) 8.0 Eos % (Auto) 0.0 Baso % (Auto) 0.0 Absolute Neuts (auto) 11.7 H Absolute Lymphs (auto) 1.22 Total Counted Not Reportable PT 31.8 H INR 3.1 APTT 31.0 Sodium 143 Potassium 4.1 Chloride 110 H Carbon Dioxide 23.0 Anion Gap 10 BUN 20 H Creatinine 0.98 Estim Creat Clear Calc 42.17 Est GFR (MDRD) Af Amer 71 Est GFR (MDRD) Non-Af 59 L BUN/Creatinine Ratio 20.5 H Glucose 151 H Calcium 8.2 L Total Creatine Kinase 03/17/18 03/18/18 03/18/18 18:45 07:25 07:25 WBC 12.7 H RBC 3.55 L Hgb 11.2 L Hct 34.9 L MCV 98.3 MCH 31.5 MCHC 32.1 RDW 13.1 RDW Differential 47.3 H Plt Count 252 MPV 10.0 Immature Gran % (Auto) 0.200 Neut % (Auto) 79.4 H Lymph % (Auto) 9.6 L [place] % (Auto) 10.7 H Eos % (Auto) 0.1 Baso % (Auto) 0.0 Absolute Neuts (auto) 10.1 H Absolute Lymphs (auto) 1.22 Total Counted Not Reportable PT 31.4 H INR 3.0 APTT Sodium Potassium Chloride Carbon Dioxide Anion Gap BUN Creatinine Estim Creat Clear Calc Est GFR (MDRD) Af Amer Est GFR (MDRD) Non-Af BUN/Creatinine Ratio Glucose Calcium Total Creatine Kinase 108 03/18/18 07:25 WBC RBC Hgb Hct MCV MCH MCHC RDW RDW Differential Plt Count MPV Immature Gran % (Auto) Neut % (Auto) Lymph % (Auto) [place] % (Auto) Eos % (Auto) Baso % (Auto) Absolute Neuts (auto) Absolute Lymphs (auto) Total Counted PT INR APTT Sodium 144 Potassium 4.7 Chloride 110 H Carbon Dioxide 28.0 Anion Gap 6 BUN 27 H Creatinine 1.31 H Estim Creat Clear Calc 31.55 Est GFR (MDRD) Af Amer 51 L Est GFR (MDRD) Non-Af 42 L BUN/Creatinine Ratio 20.6 H Glucose 147 H Calcium 8.4 L Total Creatine Kinase Medical Necessity - Tobacco Use Smoking Status: Never smoker Assessment/Plan All Active Problems (Last Reviewed 08/26/17 @ 13:09 by Zoë Duke) Fall (Acute) Hematoma (Acute) Atrial fibrillation with RVR (Resolved) Cellulitis and abscess of leg (Resolved) Influenza B (Resolved) Influenzal bronchiolitis (Resolved) #1 large hematoma of the right buttocks secondary to fall-again, plastic surgery will evaluate the patient on Tuesday and may consider surgical drainage of the area if patient continues to have severe pain #2 coagulopathy secondary to Coumadin usage-patient was given vitamin K orally today, INR will be rechecked tomorrow #3 suspected acute L3 compression fracture secondary to osteoporosis and fall-PT and OT will continue to see the patient, she may need temporary placement in a [place] [facility] [place] facility #4 paroxysmal atrial fibrillation-currently in sinus rhythm #5 hypertension #6 hyperlipidemia Code Visit OBSV E&M: 77625 Subsequent observation care L3
[2018-03-18 20:23] VITALS: BP 101/68; PULSE 81; RESP 16; TEMP 36.5; O2SAT 97
[2018-03-18] MEDS: Atorvastatin Calcium 20 MG Tablet PO (21:53)
[2018-03-19 02:20] VITALS: BP 123/56; PULSE 73; RESP 16; TEMP 36.8; O2SAT 95
[2018-03-19] MEDS: 0.9% NaCl Peripheral Flush Adult/Peds IV ×2 (02:22→08:17)
[2018-03-19] MEDS: Morphine 4 MG/ML Syringe IV ×2 (02:22→08:16)
[2018-03-19] MEDS: Levothyroxine 100 MCG Tablet PO (06:07)
[2018-03-19] MEDS: oxyCODONE 5 MG Tablet 10 MG PO ×5 (06:07→22:54)
[2018-03-19 06:40] LABS: International Normalized Ratio 1.4
[2018-03-19 08:10] VITALS: BP 116/60; PULSE 72; RESP 16; TEMP 36.6; O2SAT 96
[2018-03-19] MEDS: Doxycycline 100 MG CAPSULE PO ×2 (10:27→22:25)
[2018-03-19] MEDS: Carvedilol 6.25 MG Tablet PO ×2 (10:27→22:25)
[2018-03-19] MEDS: hydroCHLOROthiazide 25 MG Tablet PO (10:28)
[2018-03-19] MEDS: Sertraline 100 MG Tablet PO (10:28)
[2018-03-19] MEDS: Magnesium Hydroxide 30 ML UDC PO (10:29)
[2018-03-19 14:00] VITALS: BP 110/56; PULSE 72; RESP 18; TEMP 36.7; O2SAT 93
--- NOTE | 2018-03-19 17:15 | PCM.PROGNOTE ---
Patient Problems: Active and Suspected Problems (Last Reviewed 08/26/17 @ 13:09 by Zoë Duke) Fall (Acute) Hematoma (Acute) Subjective: Patient was seen and examined today, she still having significant pain in her right buttocks, she is also complaining of some lower back pain but this is not as severe as her buttocks pain. I placed the patient on a Duragesic patch today, I talked with plastic surgery concerning her care today, he is unsure if he will be able to take the patient tomorrow for evacuation of her hematoma or whether it will be this Tuesday. I relayed this to the patient, the patient's , the patient's daughter who were in the room today. I do not feel the patient needs to see cardiology, she is in sinus rhythm and in September of this year, she underwent a stress echocardiogram which did not show evidence of reversible ischemia. Patient's INR today was 1.4. - Physical Exam General: Alert, Oriented x3, Cooperative, No apparent distress, Well developed HEENT: Atraumatic, PERRLA, EOMI, Normocephalic Oral: Moist Mucosa Neck: Supple, Trachea Midline, Thyroid Normal Size and Texture Lungs: Clear to auscultation, Normal air movement, No rhonchi, No wheeze Cardiovascular: Regular rate, Regular Rhythm, Normal S1, Normal S2, No murmurs, No Ectopic Activity Abdomen: Bowel Sounds Present, Soft, Non Tender, Non-Distended Extremities: No edema, Capillary Refill Less than 3 Seconds Skin: - - There is a large hematoma covering the patient's right buttocks, this is tender to palpation and the hematoma is approximately 10-12 cm in length by 8-10 cm in width. Musculoskeletal: No Tenderness to Palpation of Joints or Extremities Neurological: Cranial nerves II-XII grossly intact, Motor Exam 5/5 strength throughout, Sensory exam intact to light touch and pain, Coordination normal Psych/Mental Status: Normal Affect, Appropriate, Alert and oriented to time, place, person, mood and affect Vital Signs Temp Pulse Resp BP Pulse Ox 98.0 F 72 18 110/56 L 93 03/19/18 14:00 03/19/18 14:00 03/19/18 14:00 03/19/18 14:00 03/19/18 14:00 Oxygen Flow Rate (L/min) 2 Oxygen Delivery Method Room Air Weight: 85.2 kg Body Mass Index (BMI) 32.2 Intake and Output for Last 24 Hours 03/17/18 03/18/18 03/19/18 23:59 23:59 23:59 Intake Total 2425 / 2425 860 / 860 Output Total 300 / 300 300 / 300 Balance 2125 / 2125 560 / 560 Laboratory Tests Past 24 Hrs 03/19/18 06:15 PT 17.0 H INR 1.4 Medical Necessity - Tobacco Use Smoking Status: Never smoker Assessment/Plan All Active Problems (Last Reviewed 08/26/17 @ 13:09 by Zoë Duke) Fall (Acute) Hematoma (Acute) Atrial fibrillation with RVR (Resolved) Cellulitis and abscess of leg (Resolved) Influenza B (Resolved) Influenzal bronchiolitis (Resolved) #1 large hematoma of the right buttocks secondary to fall-again, plastic surgery will evaluate the patient on Tuesday and may consider surgical drainage of the area, I will make the patient n.p.o. after 1 AM, she will have a repeat CBC in the morning #2 coagulopathy secondary to Coumadin usage-patient's INR today was 1.4, I do not think it needs to be rechecked tomorrow #3 suspected acute L3 compression fracture secondary to osteoporosis and fall-PT and OT will continue to see the patient, she may need temporary placement in a correction facility, I will place the patient on supplemental calcium #4 paroxysmal atrial fibrillation-currently in sinus rhythm #5 hypertension #6 hyperlipidemia Code Visit Inpatient E&M: 82262 Subs Hosp L2
[2018-03-19 20:20] VITALS: BP 130/65; PULSE 68; RESP 16; TEMP 36.9; O2SAT 98
[2018-03-19] MEDS: Atorvastatin Calcium 20 MG Tablet PO (22:25)
[2018-03-20] VITALS (14 sets, daily range): BP systolic 93–142; BP diastolic 44–70; PULSE 57–78; RESP 14–18; TEMP 36.3–37; O2SAT 92–100; BMI 32.2
--- NOTE | 2018-03-20 | THRO_PTH ---
PATIENT: BRADLEY GILMORE LOC: MS3 U#:[id number] AGE/SX: 77/F ROOM: [place]325 RE03/17/[address]: Dr. James Flores DO : 1940 BED: 1 DIS: 03/21/2018 SPEC #: [id number] RECD: 03/20/18 16:10 STATUS: XIANG REGillian #: [id number] ANA: 03/20/18 00:[address]: Gage Dudley DEPT: SURGICAL PATHOLOGY RECD BY: Samuel Barney ENTERED: 03/21/18 13:13 SP TYPE: THROMBUS OTHR DR: DO Dr. Gage Barnes MD Dr. Nicholas F Kotsonis, MD Dr. Steven Murray, MD Tissues: BLOOD CLOT, NOS Procedures: Surgery Specimen Level III Comments: @ Ordering doctor for SUIII edited from to @ by DERRELL at 03/21/18 1533 @ Submitting doctor edited from to @ by RGOOD at 03/21/18 1533 HEADER OPERATION: Surgical preparation right gluteal area with incision and drain PRE-OP DIAGNOSIS: Hematoma right gluteal and ischial area with extension to thigh TISSUE SUBMITTED: Hematoma and tissue right gluteal MICROSCOPIC DIAGNOSIS Soft tissue of right gluteal region, excision: Skin and soft tissue with organizing hematoma in deep soft tissue consistent with hematoma. AM:yonis 03/22/18 MICROSCOPIC DESCRIPTION Slides are reviewed. GROSS DESCRIPTION Received in fixative is one container labeled with the patient's name and designated hematoma and tissue right gluteal. The specimen consists of two pieces of skin with underlying tissue measuring in aggregate 15 x 4.5 cm and up to 5 cm in thickness. Also present in the container is a detached piece of adipose tissue measuring 6 x 3 x 2.5 cm. Also present in the container are multiple blood clots weighing in aggregate 274 gm and measuring 15 x 13 x 6 cm. Sections reveal focally hemorrhagic cut surfaces. No mass lesion is identified. Insecticide Maker sections are submitted in two cassettes. / SJ:yonis 03/21/18 TC:5 CT: 00020
[2018-03-20] MEDS: oxyCODONE 5 MG Tablet 10 MG PO ×3 (02:51→17:46)
--- NOTE | 2018-03-20 05:00 | EKG12_ITS ---
Test Reason : AM Blood Pressure : / mmHG Vent. Rate : 063 BPM Atrial Rate : 063 BPM P-R Int : 140 ms QRS Dur : 072 ms QT Int : 410 ms P-R-T Axes : 040 001 060 degrees QTc Int : 419 ms Normal sinus rhythm Nonspecific T wave abnormality Abnormal ECG When compared with ECG of 11-JUL-2017 19:47, Inverted T waves have replaced nonspecific T wave abnormality in Anterior leads Confirmed by ALEX LOWERY, ISIAH ([id number]), market editor LUCI DE LA O ([id number]) on 03/21/2018 9:06:41 AM Referred By: THIAGO Confirmed By:ISIAH JOHNSON MD
[2018-03-20 05:18] LABS: Absolute Lymphocyte Count 1.17 X10^3/ul (0.83-4.51); Absolute Neutrophil Count 5.3 X10^3/uL (2.0-7.7); Basophil# 0.01 X10^3/uL; Basophil% 0.1 % (0-1); Eosinophil# 0.05 X10^3/uL; Eosinophils% 0.7 % (0-5); Hematocrit 23.7 % (37-47); Hemoglobin 7.7 g/dl (12.0-15.0); Lymphocyte # 1.17 X10^3/ul (4.0); Lymphocyte % 15.5 % (19-41); Mean Corp Hgb Conc 32.5 g/gl (32-36); Mean Corpuscular Hgb 32.2 pg (27.0-32.0); Mean Corpuscular Volume 99.2 fL (81-99); Monocyte# 0.91 X10^3/uL; Monocyte% 12.1 % (0-10); Neutrophil # 5.34 X10^3/uL (2.7-7.7); Neutrophil % 70.8 % (47-70); Platelet Count 151 K/mm3 (150-450); RBC Distribution Width CV 12.4 % (11.6-14.6); Red Blood Count 2.39 M/mm3 (4.2-5.4); White Blood Count 7.5 K/mm3 (4.4-11.0)
[2018-03-20 05:20] LABS: POSITIVE COUNT NO; POSITIVE DIFFERENTIAL NO; POSITIVE MORPHOLOGY NO
[2018-03-20 05:22] LABS: International Normalized Ratio 1.2; Partial Thromboplast Time 23.4 Seconds (24.1-36.2); Prothrombin Time (Protime)PT. 15.2 SECONDS (11.7-14.9)
[2018-03-20 05:42] LABS: Anion Gap 6 (5-15); BUN 23 mg/dL (7-18); BUN/Creat Ratio 22.8 RATIO (10-20); Calcium,Total 8.1 mg/dL (8.5-10.1); Chloride 103 mmol/L (98-107); Creatinine, Serum 1.01 mg/dL (0.55-1.02); EST Glomerular Filtration Rate 57 mL/min (>60); Est Glom Filt Rate - Afr Amer 68 mL/min (>60); Estimated Creatinine Clearance 40.92 ml/min; Glucose 126 mg/dL (74-106); Potassium 4.3 mmol/L (3.5-5.1); Sodium Level 141 mmol/L (136-145)
[2018-03-20] MEDS: Levothyroxine 100 MCG Tablet PO (05:43)
[2018-03-20] MEDS: 0.9% NaCl Peripheral Flush Adult/Peds IV ×2 (05:43→23:45)
[2018-03-20] MEDS: Carvedilol 6.25 MG Tablet PO ×2 (08:06→21:47)
[2018-03-20] MEDS: hydroCHLOROthiazide 25 MG Tablet PO (08:06)
[2018-03-20] MEDS: Doxycycline 100 MG CAPSULE PO ×2 (08:07→21:47)
[2018-03-20] MEDS: Sertraline 100 MG Tablet PO (08:07)
[2018-03-20] MEDS: Calcium (Elemental) 500 MG Tablet PO ×2 (08:09→17:47)
--- NOTE | 2018-03-20 11:32 | PCM.PN.HOSP ---
Patient Problems: Active and Suspected Problems (Last Reviewed 08/26/17 @ 13:09 by Zoë Duke) Fall (Acute) Hematoma (Acute) Subjective: Still with right hip pain Vitals/I&O's: Vital Signs Temp Pulse Resp BP Pulse Ox 36.8 C 65 18 127/63 H 98 03/20/18 08:04 03/20/18 08:04 03/20/18 08:04 03/20/18 08:04 03/20/18 08:04 Oxygen Flow Rate (L/min) 2 Oxygen Delivery Method Room Air Weight: 85.2 kg Body Mass Index (BMI) 32.2 Intake and Output for Last 24 Hours 03/18/18 03/19/18 03/20/18 23:59 23:59 23:59 Intake Total 2425 / 2425 1160 / 1160 1660 / 1660 Output Total 300 / 300 300 / 300 1200 / 1200 Balance 2125 / 2125 860 / 860 460 / 460 General: No apparent distress, Confused HEENT: Atraumatic, Normocephalic Oral: Moist Mucosa, No Gingival or Mucosal Lesions/ Ulcerations Neck: No Nodes, Thyroid Normal Size and Texture Lungs: Clear to auscultation, Normal air movement, No rhonchi, No wheeze Cardiovascular: Regular rate, Regular Rhythm, Normal S1, Normal S2 Abdomen: Bowel Sounds Present, Soft, Non Tender, Non-Distended, No Hepato-splenomegaly Skin: - - marked ecchymosis and edema of right buttocks. Psych/Mental Status: Normal Affect, Appropriate Laboratory Results 03/20/18 05:06: PT 15.2 H, INR 1.2, APTT 23.4 L 03/20/18 05:06: WBC 7.5, RBC 2.39 L, Hgb 7.7 L, Hct 23.7 L, MCV 99.2 H, MCH 32.2 H, MCHC 32.5, RDW 12.4, RDW Differential 42.0, Plt Count 151, MPV 10.0, Immature Gran % (Auto) 0.800, Neut % (Auto) 70.8 H, Lymph % (Auto) 15.5 L, [place] % (Auto) 12.1 H, Eos % (Auto) 0.7, Baso % (Auto) 0.1, Absolute Neuts (auto) 5.3, Absolute Lymphs (auto) 1.17, Total Counted Not Reportable 03/20/18 05:06: Sodium 141, Potassium 4.3, Chloride 103, Carbon Dioxide 32.0, Anion Gap 6, BUN 23 H, Creatinine 1.01, Estim Creat Clear Calc 40.92, Est GFR (MDRD) Af Amer 68, Est GFR (MDRD) Non-Af 57 L, BUN/Creatinine Ratio 22.8 H, Glucose 126 H, Calcium 8.1 L, TSH 1.50 Current Medications Acetaminophen (Tylenol) 650 mg PO Q6H PRN PRN PRN Reason: Mild Pain (scale 0-3)/T>100.7 Atorvastatin Calcium (Lipitor) 20 mg PO QHS [facility] Last Admin: 03/19/18 22:25 Dose: 20 mg Cal[facility] Carbon[facility] ([place] [facility]) [facility] Last Admin: 03/20/18 08:09 Dose: 500 mg Carvedilol (Coreg) 6.25 mg PO BID [facility] Last Admin: 03/20/18 08:06 Dose: 6.25 mg Cholecalciferol (Vitamin D) 5,000 unit PO QODAY [facility] Last Admin: 03/19/18 10:28 Dose: 5,000 unit Doxycycline Monohydrate (Doxycycline) 100 mg PO BID [facility] Last Admin: 03/20/18 08:07 Dose: 100 mg Fentanyl (Duragesic Patch) 12 mcg TRANSDERM. Q3D [facility] Last Admin: 03/19/18 10:27 Dose: 12 mcg Hydrochlorothiazide (Hctz) 25 mg PO QAM [facility] Last Admin: 03/20/18 08:06 Dose: 25 mg Levothyroxine Sodium (Synthroid) 100 mcg PO DAILY@0600 [facility] Last Admin: 03/20/18 05:43 Dose: 100 mcg Magnesium Hydroxide (Milk Of Magnesia) 30 ml PO DAILY PRN PRN PRN Reason: Constipation Last Admin: 03/19/18 10:29 Dose: 30 ml Morphine Sulfate () 4 mg IV Q4H PRN PRN PRN Reason: SEVERE PAIN (6-10/10) Last Admin: 03/19/18 08:16 Dose: 4 mg Oxycodone HCl (Oxyir) 10 mg PO Q4H PRN PRN PRN Reason: SEVERE PAIN (6-10/10) Last Admin: 03/20/18 08:06 Dose: 10 mg Sertraline HCl (Zoloft) 100 mg PO DAILY [facility] Last Admin: 03/20/18 08:07 Dose: 100 mg Sodium Chloride () 5 - 15 ml IV UD PRN PRN Reason: SALINE FLUSH Last Admin: 03/20/18 05:43 Dose: 10 ml Medical Necessity - Tobacco Use Smoking Status: Never smoker Assessment/Plan All Active Problems (Last Reviewed 08/26/17 @ 13:09 by Zoë Duke) Fall (Acute) Hematoma (Acute) Atrial fibrillation with RVR (Resolved) Cellulitis and abscess of leg (Resolved) Influenza B (Resolved) Influenzal bronchiolitis (Resolved) 1. right hip hematoma 8x8.5cm for evacuation today by PRS 2. L3 vertebral fracture supportive mgmt 3. toxic encephalopathy 2/2 medications will reassess after surgery discussed with her dtr about pain control and function. 4. DVT proph SCDs. Code Visit Inpatient E&M: 52960 Subs Hosp L2
--- NOTE | 2018-03-20 11:37 | PN_ITS ---
Patient Problems: Active and Suspected Problems (Last Reviewed 08/26/17 @ 13:09 by Zoë Duke) Fall (Acute) Hematoma (Acute) Subjective: Still with right hip pain Vitals/I&O's: Vital Signs Temp Pulse Resp BP Pulse Ox 36.8 C 65 18 127/63 H 98 03/20/18 08:04 03/20/18 08:04 03/20/18 08:04 03/20/18 08:04 03/20/18 08:04 Oxygen Flow Rate (L/min) 2 Oxygen Delivery Method Room Air Weight: 85.2 kg Body Mass Index (BMI) 32.2 Intake and Output for Last 24 Hours 03/18/18 03/19/18 03/20/18 23:59 23:59 23:59 Intake Total 2425 / 2425 1160 / 1160 1660 / 1660 Output Total 300 / 300 300 / 300 1200 / 1200 Balance 2125 / 2125 860 / 860 460 / 460 General: No apparent distress, Confused HEENT: Atraumatic, Normocephalic Oral: Moist Mucosa, No Gingival or Mucosal Lesions/ Ulcerations Neck: No Nodes, Thyroid Normal Size and Texture Lungs: Clear to auscultation, Normal air movement, No rhonchi, No wheeze Cardiovascular: Regular rate, Regular Rhythm, Normal S1, Normal S2 Abdomen: Bowel Sounds Present, Soft, Non Tender, Non-Distended, No Hepato- splenomegaly Skin: - - marked ecchymosis and edema of right buttocks. Psych/Mental Status: Normal Affect, Appropriate Laboratory Results 03/20/18 05:06: PT 15.2 H, INR 1.2, APTT 23.4 L 03/20/18 05:06: WBC 7.5, RBC 2.39 L, Hgb 7.7 L, Hct 23.7 L, MCV 99.2 H, MCH 32.2 H, MCHC 32.5, RDW 12.4, RDW Differential 42.0, Plt Count 151, MPV 10.0, Immature Gran % (Auto) 0.800, Neut % (Auto) 70.8 H, Lymph % (Auto) 15.5 L, [place] % (Auto) 12.1 H, Eos % (Auto) 0.7, Baso % (Auto) 0.1, Absolute Neuts (auto) 5.3, Absolute Lymphs (auto) 1.17, Total Counted Not Reportable 03/20/18 05:06: Sodium 141, Potassium 4.3, Chloride 103, Carbon Dioxide 32.0, Anion Gap 6, BUN 23 H, Creatinine 1.01, Estim Creat Clear Calc 40.92, Est GFR (MDRD) Af Amer 68, Est GFR (MDRD) Non-Af 57 L, BUN/Creatinine Ratio 22.8 H, Glucose 126 H, Calcium 8.1 L, TSH 1.50 Current Medications Acetaminophen (Tylenol) 650 mg PO Q6H PRN PRN PRN Reason: Mild Pain (scale 0-3)/T>100.7 Atorvastatin Calcium (Lipitor) 20 mg PO QHS [facility] Last Admin: 03/19/18 22:25 Dose: 20 mg [facility] Carbonate ([place] 500) [facility] Last Admin: 03/20/18 08:09 Dose: 500 mg Carvedilol (Coreg) 6.25 mg PO BID [facility] Last Admin: 03/20/18 08:06 Dose: 6.25 mg Cholecalciferol (Vitamin D) 5,000 unit PO QODAY [facility] Last Admin: 03/19/18 10:28 Dose: 5,000 unit Doxycycline Monohydrate (Doxycycline) 100 mg PO BID [facility] Last Admin: 03/20/18 08:07 Dose: 100 mg Fentanyl (Duragesic Patch) 12 mcg TRANSDERM. Q3D [facility] Last Admin: 03/19/18 10:27 Dose: 12 mcg Hydrochlorothiazide (Hctz) 25 mg PO QAM [facility] Last Admin: 03/20/18 08:06 Dose: 25 mg Levothyroxine Sodium (Synthroid) 100 mcg PO DAILY@0600 [facility] Last Admin: 03/20/18 05:43 Dose: 100 mcg Magnesium Hydroxide (Milk Of Magnesia) 30 ml PO DAILY PRN PRN PRN Reason: Constipation Last Admin: 03/19/18 10:29 Dose: 30 ml Morphine Sulfate () 4 mg IV Q4H PRN PRN PRN Reason: SEVERE PAIN (6-10/10) Last Admin: 03/19/18 08:16 Dose: 4 mg Oxycodone HCl (Oxyir) 10 mg PO Q4H PRN PRN PRN Reason: SEVERE PAIN (6-10/10) Last Admin: 03/20/18 08:06 Dose: 10 mg Sertraline HCl (Zoloft) 100 mg PO DAILY [facility] Last Admin: 03/20/18 08:07 Dose: 100 mg Sodium Chloride () 5 - 15 ml IV UD PRN PRN Reason: SALINE FLUSH Last Admin: 03/20/18 05:43 Dose: 10 ml Medical Necessity - Tobacco Use Smoking Status: Never smoker Assessment/Plan All Active Problems (Last Reviewed 08/26/17 @ 13:09 by Zoë Duke) Fall (Acute) Hematoma (Acute) Atrial fibrillation with RVR (Resolved) Cellulitis and abscess of leg (Resolved) Influenza B (Resolved) Influenzal bronchiolitis (Resolved) 1. right hip hematoma * 8x8.5cm * for evacuation today by PRS 2. L3 vertebral fracture * supportive mgmt 3. toxic encephalopathy * 2/2 medications * will reassess after surgery * discussed with her dtr about pain control and function. 4. DVT proph SCDs. Code Visit Inpatient E&M: 80086 Subs Hosp L2
[2018-03-20] MEDS: Morphine 4 MG/ML Syringe IV (12:37)
--- NOTE | 2018-03-20 12:42 | NURSING ---
call placed to AC and report given to RN whom will be taking over care for this pt
--- NOTE | 2018-03-20 13:18 | CASEMGMT ---
Social Work Note MOISES spoke with Meaghan in TCU and informed her that pt it scheduled to have surgery this afternoon and to submit for pre-cert after pt has surgery. Meaghan states understanding and she is able to accept pt pending pre-cert. MOISES spoke with pt. MOISES introduced self and role at [facility]. Pt has guest present in room. Pt gave this worker permission to speak to her in front of guest. Pt confirms that she would like to go to TCU at discharge. MOISES informed pt that TCU is able to accept pt and that pt will need pre-certification from pt's insurance. Pt states understanding. Plan: TCU pending pre-cert Franny Pedro AGRICULTURE CONSULTANT, TUBE DRAWER
--- NOTE | 2018-03-20 14:57 | CHAPLAIN ---
Type of Pastoral Visit _x__ Initial Visit ___ Follow-up Visit ___ On-call Visit ___ General Patient Visit ___ Spiritual Assessment ___ Family Conference ___ Bereavement ___ Rapid Response ___ Code Blue ___ Other (describe below) Pastoral Care Referral From _x__ Patient ___ Family ___ Nurse ___ Physician ___ Senior Product Designer ___ Underground Distribution Engineer ___ Other (describe below) Sacrament/Intervention _x__ Active listening ___ Anointing ___ Episcopal ___ Bereavement ___ Communion _x__ Alva exploration ___ ___ Life review _x__ Prayer ___ Reconciliation ___ Sacrament of Sick _x__ Supportive presence ___ Wedding ___ Other (describe below) Pastoral Comments
--- NOTE | 2018-03-20 15:15 | CASEMGMT ---
Social Work Note MOISES placed a call to Meaghan in TCU and left her a message that pt is currently still down in surgery and that this worker will submit for pre-cert tomorrow as pt has [employer]. MOISES will await PT/OT notes after pt has surgery and will await determination if pt will have a wound vac. Plan: TCU pending pre-cert Franny Pedro MSW, CHURN DRILLER
--- NOTE | 2018-03-20 16:14 | PCM.IMDPSTOP ---
Immediate Post-Op Note Date of Procedure: 03/20/18 Primary Surgeon/Physician: Gage Dudley transportation security screener: None Pre-Operative Diagnosis: 1. Traumatic hematoma right gluteal area with extension onto proximal posterior thigh. 2. Fall from stairs. 3. 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 Post-Operative Diagnosis: 1. Traumatic submuscular hematoma right gluteal area with extension to ischial bone and onto proximal posterior thigh. 2. Fall from stairs. 3. USP use of anticoagulation. Surgery/Procedure Performed:: Surgical preparation right gluteal and proximal posterior thigh area with incision and drainage and evacuation and excisional debridement traumatic submuscular hematoma with extension to ischial bone and onto proximal posterior thigh (180 cm2). Description of Surgical Findings:: The patient is a 77 year old F who presented to the ED yesterday after falling down a couple of stairs at home. She says that the fall was mechanical in nature, she was bringing a walker out of the attic and she missed a step. The walker was for her daughter's [id number]. This happened earlier in the morning and as the day progressed she had worsening pain and could not sit upright and would become lightheaded on occasion. When she presented to the ER she was found to have a large hematoma on her right buttock that was very firm and indurated with ecchymosis. She denies hitting her head. She states that she can move her toes and she can feel her legs. She currently takes Coumadin for her atrial fibrillation. She underwent a CT Pelvis on 03/17/18 which showed a soft tissue hematoma in the right buttock measuring approximately 8 x 8.5 cm. Swelling and edema of the right gluteus david is noted. Hgb on admission was 12.5. The next day the Hgb was 11.2. I was asked to evaluate this patient for surgical options for treatment. Today the patient underwent surgical preparation right gluteal and proximal posterior thigh area with incision and drainage and evacuation and excisional debridement traumatic submuscular hematoma with extension to ischial bone and onto proximal posterior thigh (180 cm2). Size of defect right gluteal area - 10 x 18 x 6 cm. Estimated Blood Loss: 450 ml. Specimen's removed: Traumatic hematoma right gluteal area to Pathology. Drains: None. Type of Anesthesia:: General - Admit VTE Documentation VTE Present on Admission: No - Patient is on Coumadin for atrial fibrillation. VTE Mechan Device Prophylaxis: SCD's VTE Pharm Prophylaxis ordered?: Yes
--- NOTE | 2018-03-20 16:18 | OP.PN_ITS ---
Immediate Post-Op Note Date of Procedure: 03/20/18 Primary Surgeon/Physician: Gage Dudley operations asst: None Pre-Operative Diagnosis: 1. Traumatic hematoma right gluteal area with extension onto proximal posterior thigh. 2. Fall from stairs. 3. 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 Post-Operative Diagnosis: 1. Traumatic submuscular hematoma right gluteal area with extension to ischial bone and onto proximal posterior thigh. 2. Fall from stairs. 3. [facility] use of anticoagulation. Surgery/Procedure Performed:: Surgical preparation right gluteal and proximal posterior thigh area with incision and drainage and evacuation and excisional debridement traumatic submuscular hematoma with extension to ischial bone and onto proximal posterior thigh (180 cm2). Description of Surgical Findings:: The patient is a 77 year old F who presented to the ED yesterday after falling down a couple of stairs at home. She says that the fall was mechanical in nature, she was bringing a walker out of the attic and she missed a step. The walker was for her daughter's [id number]. This happened earlier in the morning and as the day progressed she had worsening pain and could not sit upright and would become lightheaded on occasion. When she presented to the ER she was found to have a large hematoma on her right buttock that was very firm and indurated with ecchymosis. She denies hitting her head. She states that she can move her toes and she can feel her legs. She currently takes Coumadin for her atrial fibrillation. She underwent a CT Pelvis on 03/17/18 which showed a soft tissue hematoma in the right buttock measuring approximately 8 x 8.5 cm. Swelling and edema of the right gluteus david is noted. Hgb on admission was 12.5. The next day the Hgb was 11.2. I was asked to evaluate this patient for surgical options for treatment. Today the patient underwent surgical preparation right gluteal and proximal posterior thigh area with incision and drainage and evacuation and excisional debridement traumatic submuscular hematoma with extension to ischial bone and onto proximal posterior thigh (180 cm2). Size of defect right gluteal area - 10 x 18 x 6 cm. Estimated Blood Loss: 450 ml. Specimen's removed: Traumatic hematoma right gluteal area to Pathology. Drains: None. Type of Anesthesia:: General - Admit VTE Documentation VTE Present on Admission: No - Patient is on Coumadin for atrial fibrillation. VTE Mechan Device Prophylaxis: SCD's VTE Pharm Prophylaxis ordered?: Yes
[2018-03-20 17:50] LABS: Hematocrit 27.4 % (37-47); Mean Corp Hgb Conc 32.8 g/gl (32-36); Mean Corpuscular Hgb 31.8 pg (27.0-32.0); Mean Corpuscular Volume 96.8 fL (81-99); Mean Platelet Vol. 10.5 fl (6.2-12.0); Platelet Count 135 K/mm3 (150-450); RBC Distribution Width SD 46.7 fl (35.1-43.9); Red Blood Count 2.83 M/mm3 (4.2-5.4); White Blood Count 7.9 K/mm3 (4.4-11.0)
[2018-03-20 18:06] LABS: Scan Indicated on CBC? Y/N NO
--- NOTE | 2018-03-20 18:06 | NURSING ---
Clarification: 2nd unit of blood started @1753.
[2018-03-20 18:47] LABS: Anion Gap 9 (5-15); BUN 20 mg/dL (7-18); BUN/Creat Ratio 21.4 RATIO (10-20); Calcium,Total 8.2 mg/dL (8.5-10.1); Chloride 104 mmol/L (98-107); Creatinine, Serum 0.94 mg/dL (0.55-1.02); EST Glomerular Filtration Rate 62 mL/min (>60); Est Glom Filt Rate - Afr Amer 75 mL/min (>60); Estimated Creatinine Clearance 43.97 ml/min; Glucose 105 mg/dL (74-106); Potassium 3.7 mmol/L (3.5-5.1); Prealbumin 25.2 mg/dL (20.0-40.0); Sodium Level 141 mmol/L (136-145)
--- NOTE | 2018-03-20 19:05 | PCM.OPRPT ---
Report of Operation Date of Procedure: 03/20/18 Pre-Operative Diagnosis: 1. Traumatic hematoma right gluteal area with extension onto proximal posterior thigh. 2. Fall from stairs. 3. intermediate use of anticoagulation. Post-Operative Diagnosis: 1. Traumatic submuscular hematoma right gluteal area with extension to ischial bone and onto proximal posterior thigh. 2. Fall from stairs. 3. 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 Surgery/Procedure Performed:: Surgical preparation right gluteal and proximal posterior thigh area with incision and drainage and evacuation and excisional debridement traumatic submuscular hematoma with extension to ischial bone and onto proximal posterior thigh (180 cm2). Description of Surgical Findings:: The patient is a 77 year old F who presented to the ED yesterday after falling down a couple of stairs at home. She says that the fall was mechanical in nature, she was bringing a walker out of the attic and she missed a step. The walker was for her daughter's [id number]. This happened earlier in the morning and as the day progressed she had worsening pain and could not sit upright and would become lightheaded on occasion. When she presented to the ER she was found to have a large hematoma on her right buttock that was very firm and indurated with ecchymosis. She denies hitting her head. She states that she can move her toes and she can feel her legs. She currently takes Coumadin for her atrial fibrillation. She underwent a CT Pelvis on 03/17/18 which showed a soft tissue hematoma in the right buttock measuring approximately 8 x 8.5 cm. Swelling and edema of the right gluteus david is noted. Hgb on admission was 12.5. The next day the Hgb was 11.2. I was asked to evaluate this patient for surgical options for treatment. Patient was informed of the risks and complications of the procedure including alternatives to surgery. These were discussed with the patient personally. Patient voices understanding and wishes to proceed. Size of defect right gluteal area - 10 x 18 x 6 cm. pile header: None Type of Anesthesia:: General Specimen's removed: Traumatic hematoma right gluteal area to Pathology. Drains: None. Estimated Blood Loss (mL): 450 ml. Description of Procedure: Patient was taken to OR in supine position and was placed under general anesthesia. She was then placed in the lateral position. The right gluteal and proximal posterior thigh area was prepped and draped in the usual fashion. SCD's were placed for DVT prophylaxis. Perioperative antibiotics were given intravenously. An oblique incision was made over the right gluteal area over the area of greatest firmness and induration. I dissected into the subcutaneous tissue. A large hematoma was noted. Some active bleeding seen from the gluteal muscle and cauterized. The gluteus muscle was moderately bruised. The hematoma extended in a submuscular position deep the the gluteus muscle all the way down to the ischial bone. There was also extension of the hematoma deep into the proximal posterior thigh. About 450 ml of blood loss was seen and most of it was blood clot from the hematoma. The wound was copiously irrigated with saline. The bruised gluteus muscle looked more viable after irrigation. Some bleeding points were cauterized for hemostasis. The overlying skin showed extensive ecchymosis with some skin necrosis. The nonviable skin and subcutaneous tissue was excised and debrided. Tissue was sent to Pathology for analysis. There was no evidence of infection and no evidence of necrotizing process at this time. So no culture was obtained. The size of the defect after incision and drainage and evacuation and excisional debridement of the hematoma was 10 x 18 x 6 cm or 180 cm2. The wound was then dressed with Mepitel nonadherent dressing followed by Kerlix gauze and Betadine followed by dry Kerlix gauze and ABD pads compression dressing. Patient tolerated the procedure well and was sent to PACU in satisfactory condition. Patient will be sent upstairs for continued postop care. The VAC will be placed tomorrow. Grafts/Implants Used: None. - Complications None. - Admit VTE Documentation VTE Present on Admission: No - Patient is on Coumadin for atrial fibrillation. VTE Mechan Device Prophylaxis: SCD's VTE Pharm Prophylaxis ordered?: Yes Code Visit Surgery Charges CPT - 73792 ICD-10 - S30.0xxA, S80.11xA, W19.xxxA, Z79.01 94179 S80.11xA, S30.0xxA, W19.xxxA, Z79.01 95184 S31.819A, S30.0xxA, S80.11xA, W19.xxxA, Z79.01 85583 S31.819A, S30.0xxA, S80.11xA, W19.xxxA, Z79.01
[2018-03-20] MEDS: Acetaminophen 325 MG Tablet 650 MG PO (21:47)
[2018-03-20] MEDS: Atorvastatin Calcium 20 MG Tablet PO (21:47)
[2018-03-21] MEDS: oxyCODONE 5 MG Tablet 10 MG PO ×4 (00:28→13:21)
[2018-03-21 05:00] VITALS: BP 124/58; PULSE 55; RESP 16; TEMP 37; O2SAT 94
[2018-03-21] MEDS: Levothyroxine 100 MCG Tablet PO (05:02)
[2018-03-21] MEDS: Acetaminophen 325 MG Tablet 650 MG PO ×2 (05:03→13:21)
[2018-03-21 06:15] LABS: Absolute Lymphocyte Count 1.18 X10^3/ul (0.83-4.51); Absolute Neutrophil Count 6.2 X10^3/uL (2.0-7.7); Basophil# 0.01 X10^3/uL; Basophil% 0.1 % (0-1); Eosinophils% 2.3 % (0-5); Hematocrit 29.3 % (37-47); Hemoglobin 9.7 g/dl (12.0-15.0); Lymphocyte # 1.18 X10^3/ul (4.0); Lymphocyte % 13.8 % (19-41); Mean Corp Hgb Conc 33.1 g/gl (32-36); Mean Corpuscular Hgb 31.6 pg (27.0-32.0); Mean Corpuscular Volume 95.4 fL (81-99); Mean Platelet Vol. 9.9 fl (6.2-12.0); Monocyte# 0.83 X10^3/uL; Monocyte% 9.7 % (0-10); Neutrophil # 6.24 X10^3/uL (2.7-7.7); Neutrophil % 73.4 % (47-70); Platelet Count 145 K/mm3 (150-450); RBC Distribution Width CV 15.9 % (11.6-14.6); RBC Distribution Width SD 52.4 fl (35.1-43.9); Red Blood Count 3.07 M/mm3 (4.2-5.4); White Blood Count 8.5 K/mm3 (4.4-11.0)
[2018-03-21 06:17] LABS: POSITIVE COUNT NO; POSITIVE DIFFERENTIAL NO; POSITIVE MORPHOLOGY NO
[2018-03-21 06:24] LABS: International Normalized Ratio 1.2; Prothrombin Time (Protime)PT. 14.8 SECONDS (11.7-14.9)
[2018-03-21 06:38] LABS: Anion Gap 8 (5-15); BUN 21 mg/dL (7-18); BUN/Creat Ratio 20.8 RATIO (10-20); Calcium,Total 8.3 mg/dL (8.5-10.1); Chloride 103 mmol/L (98-107); Creatinine, Serum 1.01 mg/dL (0.55-1.02); EST Glomerular Filtration Rate 57 mL/min (>60); Est Glom Filt Rate - Afr Amer 68 mL/min (>60); Estimated Creatinine Clearance 40.92 ml/min; Glucose 98 mg/dL (74-106); Sodium Level 141 mmol/L (136-145)
[2018-03-21 07:41] VITALS: O2SAT 95
[2018-03-21] MEDS: 0.9% NaCl Peripheral Flush Adult/Peds IV (08:27)
[2018-03-21] MEDS: Morphine 4 MG/ML Syringe IV (08:27)
[2018-03-21 08:30] VITALS: BP 134/49; PULSE 53; RESP 18; TEMP 36.4; O2SAT 97
[2018-03-21] MEDS: Calcium (Elemental) 500 MG Tablet PO (08:56)
--- NOTE | 2018-03-21 09:13 | NURSING ---
wound photo: right buttock
--- NOTE | 2018-03-21 10:03 | CASEMGMT ---
Social Work Note MOISES faxed referral to Gisella at [facility] [employer]. MOISES placed a call to Meaghan in TCU and left her a message informing her that this worker submitted for pre-cert through [facility]. Plan: TCU pending pre-cert Franny Pedro SALES ASSISTANT ENTERTAINMENT AND MEDIA, CORRECTIONAL SUPPLY SUPERVISOR
--- NOTE | 2018-03-21 10:29 | PCM.PN.HOSP ---
Patient Problems: Active and Suspected Problems (Last Reviewed 08/26/17 @ 13:09 by Zoë Duke) Fall (Acute) Hematoma (Acute) Acute blood loss anemia (Acute) Subjective: Per the patient's daughter, patient had some increased confusion last night but better today. Patient did receive pain this morning for her wound change so is a little bit more confused than she had been. Vitals/I&O's: Vital Signs Temp Pulse Resp BP Pulse Ox 36.4 C L 53 L 18 134/49 H 97 03/21/18 08:30 03/21/18 08:30 03/21/18 08:30 03/21/18 08:30 03/21/18 08:30 Oxygen Flow Rate (L/min) 2 Oxygen Delivery Method Nasal Cannula Weight: 85.2 kg Body Mass Index (BMI) 32.2 Intake and Output for Last 24 Hours 03/19/18 03/20/18 03/21/18 23:59 23:59 23:59 Intake Total 1160 / 1160 2760 / 2760 1041 / 1041 Output Total 300 / 300 1400 / 1400 475 / 475 Balance 860 / 860 1360 / 1360 566 / 566 General: No apparent distress, - - Confused. Afebrile. HEENT: Atraumatic, Normocephalic Oral: Moist Mucosa, No Gingival or Mucosal Lesions/ Ulcerations Neck: No Nodes, Thyroid Normal Size and Texture Lungs: Clear to auscultation, Normal air movement, No rhonchi, No wheeze Cardiovascular: Regular rate, Regular Rhythm, Normal S1, Normal S2, No murmurs Abdomen: Bowel Sounds Present, Soft, Non Tender, Non-Distended Extremities: No Calf Tenderness, - - Ecchymosis over the right buttocks. Roughly 1 cm incision over the right buttocks and with with wound VAC in place. Per pictures from wound care, shows healing tissue. Psych/Mental Status: Appropriate Laboratory Results 03/20/18 12:05: Blood Type A POSITIVE, Antibody Screen NEGATIVE, Crossmatch See Detail 03/20/18 17:08: WBC 7.9, RBC 2.83 L, Hgb 9.0 L, Hct 27.4 L, MCV 96.8, MCH 31.8, MCHC 32.8, RDW 14.0, RDW Differential 46.7 H, Plt Count 135 L, MPV 10.5 03/20/18 17:08: Sodium 141, Potassium 3.7, Chloride 104, Carbon Dioxide 28.0, Anion Gap 9, BUN 20 H, Creatinine 0.94, Estim Creat Clear Calc 43.97, Est GFR (MDRD) Af Amer 75, Est GFR (MDRD) Non-Af 62, BUN/Creatinine Ratio 21.4 H, Glucose 105, Calcium 8.2 L, Prealbumin 25.2 03/21/18 06:10: PT 14.8, INR 1.2 03/21/18 06:10: WBC 8.5, RBC 3.07 L, Hgb 9.7 L, Hct 29.3 L, MCV 95.4, MCH 31.6, MCHC 33.1, RDW 15.9 H, RDW Differential 52.4 H, Plt Count 145 L, MPV 9.9, Immature Gran % (Auto) 0.700, Neut % (Auto) 73.4 H, Lymph % (Auto) 13.8 L, [place] % (Auto) 9.7, Eos % (Auto) 2.3, Baso % (Auto) 0.1, Absolute Neuts (auto) 6.2, Absolute Lymphs (auto) 1.18, Total Counted Not Reportable 03/21/18 06:10: Sodium 141, Potassium 4.0, Chloride 103, Carbon Dioxide 30.0, Anion Gap 8, BUN 21 H, Creatinine 1.01, Estim Creat Clear Calc 40.92, Est GFR (MDRD) Af Amer 68, Est GFR (MDRD) Non-Af 57 L, BUN/Creatinine Ratio 20.8 H, Glucose 98, Calcium 8.3 L Current Medications Acetaminophen (Tylenol) 650 mg PO Q6H PRN PRN PRN Reason: Mild Pain (scale 0-3)/T>100.7 Last Admin: 03/21/18 05:03 Dose: 650 mg Atorvastatin Calcium (Lipitor) 20 mg PO QHS [facility] Last Admin: 03/20/18 21:47 Dose: 20 mg Calcium Carbonate ([place] 500) [facility] Last Admin: 03/21/18 08:56 Dose: 500 mg Carvedilol (Coreg) 6.25 mg PO BID [facility] Last Admin: 03/20/18 21:47 Dose: 6.25 mg Cholecalciferol (Vitamin D) 5,000 unit PO QODAY [facility] Last Admin: 03/19/18 10:28 Dose: 5,000 unit Doxycycline Monohydrate (Doxycycline) 100 mg PO BID [facility] Last Admin: 03/20/18 21:47 Dose: 100 mg Fentanyl (Duragesic Patch) 12 mcg TRANSDERM. Q3D [facility] Last Admin: 03/19/18 10:27 Dose: 12 mcg Hydrochlorothiazide (Hctz) 25 mg PO QAM [facility] Last Admin: 03/20/18 08:06 Dose: 25 mg Clindamycin Phosphate 600 mg/ (Dextrose) 54 mls @ 162 mls/hr IV Q8H [facility] Last Admin: 03/21/18 08:53 Dose: 162 mls/hr Levothyroxine Sodium (Synthroid) 100 mcg PO DAILY@0600 [facility] Last Admin: 03/21/18 05:02 Dose: 100 mcg Magnesium Hydroxide (Milk Of Magnesia) 30 ml PO DAILY PRN PRN PRN Reason: Constipation Last Admin: 03/19/18 10:29 Dose: 30 ml Morphine Sulfate () 4 mg IV Q4H PRN PRN PRN Reason: SEVERE PAIN (6-10/10) Last Admin: 03/21/18 08:27 Dose: 4 mg Nutritional Formula (Lactose Free) (Ensure Enlive) 120 ml PO 4X/DAY [facility] Oxycodone HCl (Oxyir) 10 mg PO Q4H PRN PRN PRN Reason: SEVERE PAIN (6-10/10) Last Admin: 03/21/18 08:56 Dose: 10 mg Sertraline HCl (Zoloft) 100 mg PO DAILY [facility] Last Admin: 03/20/18 08:07 Dose: 100 mg Sodium Chloride () 5 - 15 ml IV UD PRN PRN Reason: SALINE FLUSH Last Admin: 03/21/18 08:27 Dose: 5 ml Medical Necessity - Tobacco Use Smoking Status: Never smoker Assessment/Plan All Active Problems (Last Reviewed 08/26/17 @ 13:09 by Zoë Duke) Fall (Acute) Hematoma (Acute) Acute blood loss anemia (Acute) Atrial fibrillation with RVR (Resolved) Cellulitis and abscess of leg (Resolved) Influenza B (Resolved) Influenzal bronchiolitis (Resolved) 1. right hip hematoma traumatic and on coumadin. POD #1 for I&D and evacuation. Debridnet with extension to ischial bone. wound vac and wound care 2. L3 vertebral fracture supportive mgmt 3. toxic encephalopathy 2/2 medications will reassess after surgery discussed with her dtr about pain control and function. 4. DVT proph SCDs. 5. pAfib rate-controlled coumadin held d/t #1, resume when ok with PRS 6. Acute blood loss anemia Hg 11.2 to 7.7 transfused 2 units PRBCs on 03/20, now 9.7 no need for additional transfusions at this time D/T # 1
--- NOTE | 2018-03-21 10:35 | PN_ITS ---
Patient Problems: Active and Suspected Problems (Last Reviewed 08/26/17 @ 13:09 by Zoë Duke) Fall (Acute) Hematoma (Acute) Acute blood loss anemia (Acute) Subjective: Per the patient's daughter, patient had some increased confusion last night but better today. Patient did receive pain this morning for her wound change so is a little bit more confused than she had been. Vitals/I&O's: Vital Signs Temp Pulse Resp BP Pulse Ox 36.4 C L 53 L 18 134/49 H 97 03/21/18 08:30 03/21/18 08:30 03/21/18 08:30 03/21/18 08:30 03/21/18 08:30 Oxygen Flow Rate (L/min) 2 Oxygen Delivery Method Nasal Cannula Weight: 85.2 kg Body Mass Index (BMI) 32.2 Intake and Output for Last 24 Hours 03/19/18 03/20/18 03/21/18 23:59 23:59 23:59 Intake Total 1160 / 1160 2760 / 2760 1041 / 1041 Output Total 300 / 300 1400 / 1400 475 / 475 Balance 860 / 860 1360 / 1360 566 / 566 General: No apparent distress, - - Confused. Afebrile. HEENT: Atraumatic, Normocephalic Oral: Moist Mucosa, No Gingival or Mucosal Lesions/ Ulcerations Neck: No Nodes, Thyroid Normal Size and Texture Lungs: Clear to auscultation, Normal air movement, No rhonchi, No wheeze Cardiovascular: Regular rate, Regular Rhythm, Normal S1, Normal S2, No murmurs Abdomen: Bowel Sounds Present, Soft, Non Tender, Non-Distended Extremities: No Calf Tenderness, - - Ecchymosis over the right buttocks. Roughly 1 cm incision over the right buttocks and with with wound VAC in place. Per pictures from wound care, shows healing tissue. Psych/Mental Status: Appropriate Laboratory Results 03/20/18 12:05: Blood Type A POSITIVE, Antibody Screen NEGATIVE, Crossmatch See Detail 03/20/18 17:08: WBC 7.9, RBC 2.83 L, Hgb 9.0 L, Hct 27.4 L, MCV 96.8, MCH 31.8, MCHC 32.8, RDW 14.0, RDW Differential 46.7 H, Plt Count 135 L, MPV 10.5 03/20/18 17:08: Sodium 141, Potassium 3.7, Chloride 104, Carbon Dioxide 28.0, Anion Gap 9, BUN 20 H, Creatinine 0.94, Estim Creat Clear Calc 43.97, Est GFR (MDRD) Af Amer 75, Est GFR (MDRD) Non-Af 62, BUN/Creatinine Ratio 21.4 H, Glucose 105, Calcium 8.2 L, Prealbumin 25.2 03/21/18 06:10: PT 14.8, INR 1.2 03/21/18 06:10: WBC 8.5, RBC 3.07 L, Hgb 9.7 L, Hct 29.3 L, MCV 95.4, MCH 31.6, MCHC 33.1, RDW 15.9 H, RDW Differential 52.4 H, Plt Count 145 L, MPV 9.9, Immature Gran % (Auto) 0.700, Neut % (Auto) 73.4 H, Lymph % (Auto) 13.8 L, [place] % (Auto) 9.7, Eos % (Auto) 2.3, Baso % (Auto) 0.1, Absolute Neuts (auto) 6.2, Absolute Lymphs (auto) 1.18, Total Counted Not Reportable 03/21/18 06:10: Sodium 141, Potassium 4.0, Chloride 103, Carbon Dioxide 30.0, Anion Gap 8, BUN 21 H, Creatinine 1.01, Estim Creat Clear Calc 40.92, Est GFR (MDRD) Af Amer 68, Est GFR (MDRD) Non-Af 57 L, BUN/Creatinine Ratio 20.8 H, Glucose 98, Calcium 8.3 L Current Medications Acetaminophen (Tylenol) 650 mg PO Q6H PRN PRN PRN Reason: Mild Pain (scale 0-3)/T>100.7 Last Admin: 03/21/18 05:03 Dose: 650 mg Atorvastatin Calcium (Lipitor) 20 mg PO QHS [facility] Last Admin: 03/20/18 21:47 Dose: 20 mg Calcium Carbonate (Os-Odell 500) [facility] Last Admin: 03/21/18 08:56 Dose: 500 mg Carvedilol (Coreg) 6.25 mg PO BID [facility] Last Admin: 03/20/18 21:47 Dose: 6.25 mg Cholecalciferol (Vitamin D) 5,000 unit PO QODAY [facility] Last Admin: 03/19/18 10:28 Dose: 5,000 unit Doxycycline Monohydrate (Doxycycline) 100 mg PO BID [facility] Last Admin: 03/20/18 21:47 Dose: 100 mg Fentanyl (Duragesic Patch) 12 mcg TRANSDERM. Q3D [facility] Last Admin: 03/19/18 10:27 Dose: 12 mcg Hydrochlorothiazide (Hctz) 25 mg PO QAM [facility] Last Admin: 03/20/18 08:06 Dose: 25 mg Clindamycin Phosphate 600 mg/ (Dextrose) 54 mls @ 162 mls/hr IV Q8H [facility] Last Admin: 03/21/18 08:53 Dose: 162 mls/hr Levothyroxine Sodium (Synthroid) 100 mcg PO DAILY@0600 [facility] Last Admin: 03/21/18 05:02 Dose: 100 mcg Magnesium Hydroxide (Milk Of Magnesia) 30 ml PO DAILY PRN PRN PRN Reason: Constipation Last Admin: 03/19/18 10:29 Dose: 30 ml Morphine Sulfate () 4 mg IV Q4H PRN PRN PRN Reason: SEVERE PAIN (6-10/10) Last Admin: 03/21/18 08:27 Dose: 4 mg Nutritional Formula (Lactose Free) (Ensure Enlive) 120 ml PO 4X/DAY [facility] Oxycodone HCl (Oxyir) 10 mg PO Q4H PRN PRN PRN Reason: SEVERE PAIN (6-10/10) Last Admin: 03/21/18 08:56 Dose: 10 mg Sertraline HCl (Zoloft) 100 mg PO DAILY [facility] Last Admin: 03/20/18 08:07 Dose: 100 mg Sodium Chloride () 5 - 15 ml IV UD PRN PRN Reason: SALINE FLUSH Last Admin: 03/21/18 08:27 Dose: 5 ml Medical Necessity - Tobacco Use Smoking Status: Never smoker Assessment/Plan All Active Problems (Last Reviewed 08/26/17 @ 13:09 by Zoë Duke) Fall (Acute) Hematoma (Acute) Acute blood loss anemia (Acute) Atrial fibrillation with RVR (Resolved) Cellulitis and abscess of leg (Resolved) Influenza B (Resolved) Influenzal bronchiolitis (Resolved) 1. right hip hematoma * traumatic and on coumadin. * POD #1 for I&D and evacuation. Debridnet with extension to ischial bone. * wound vac and wound care 2. L3 vertebral fracture * supportive mgmt 3. toxic encephalopathy * 2/2 medications * will reassess after surgery * discussed with her dtr about pain control and function. 4. DVT proph SCDs. 5. pAfib * rate-controlled * coumadin held d/t #1, resume when ok with PRS 6. Acute blood loss anemia * Hg 11.2 to 7.7 * transfused 2 units PRBCs on 03/20, now 9.7 * no need for additional transfusions at this time * D/T # 1
[2018-03-21] MEDS: Carvedilol 6.25 MG Tablet PO (10:54)
[2018-03-21] MEDS: Doxycycline 100 MG CAPSULE PO (10:54)
[2018-03-21] MEDS: hydroCHLOROthiazide 25 MG Tablet PO (10:54)
[2018-03-21] MEDS: Sertraline 100 MG Tablet PO (10:55)
[2018-03-21] MEDS: Magnesium Hydroxide 30 ML UDC PO (11:01)
--- NOTE | 2018-03-21 14:22 | CASEMGMT ---
Social Work Note MOISES spoke with Gisella at [facility]. Gisella approves for pt to go to TCU. MOISES updated Meaghan and physician. Plan: TCU once medically cleared Franny Pedro TOMOGRAPHY TECHNOLOGIST, LAWN SERVICE SUPERVISOR
--- NOTE | 2018-03-21 14:44 | TREXTCAR_ITS ---
- Diet 03/20/18 16:45 Diet: Regular Diet Type of Dietary Supplement:: Rviera ([place]) Is pt able to select menu?: Yes - Routine Orders/Code Status Routine Lab Work: CBC, BMP Code Status: Full Code - Wound(s) RIGHT BUTTOCK Wound Type: open surgical wound s/p excision hematoma Dressing Change: applied KCI wound VAC LEFT JEFFERSON Wound Type: Abrasion RIGHT KNEE Wound Type: Abrasion - Therapies Physical Therapy: Eval and Treat Occupational Therapy: Eval and Treat - Allergies/Procedures Done in Hospital Allergies/Adverse Reactions: Allergies cephalexin monohydrate [From Keflex] Allergy (Verified 03/17/18 18:05) Hives ethchlorvynol [From Placidyl] Allergy (Verified 03/17/18 18:05) Unknown NSAIDS (Non-Steroidal Anti-Inflamma Allergy (Verified 03/17/18 18:05) Unknown Penicillins [PCN] Allergy (Verified 03/17/18 18:05) Unknown Sulfa (Sulfonamide Antibiotics) Allergy (Verified 03/17/18 18:05) Rash sulfamethoxazole [From Septra] Allergy (Verified 03/17/18 18:05) Unknown trimethoprim [From Septra] Allergy (Verified 03/17/18 18:05) Unknown Procedures: - - Right buttocks incision and drainage and evacuation. - Type of Care/Length of Stay Estimated LOS: Convalescent Care Less Than 30 days Type of Care Needed: Skilled Rehab Potential: Fair Prognosis: Fair - Additional Orders/Day of Discharge Day of Discharge: 03/21/18 - Dietary and Speech Recommendations Dietitian Recommendations/Changes: Rec diet change to Cardiac d/t pmhx and BMI. Please order RIVERA BID FROM PHARMACY. Will order ensure enlive 120 cc 4x/day to help w/ healing - Follow Up Care Primary Care Physician: Mauricio Barney MD [Primary Care Provider] - Within 2 Weeks Please Follow Up With: Gage Dudley MD When: 1 week
--- NOTE | 2018-03-21 14:47 | PCM.DC.SUM ---
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 Suspected acute L3 fracture without significant loss of vertebral body height. 2. Noncompressive L5-S1 disc protrusion. Electronically Signed: Nancy Bryant MD at 20:06 EST Tel , Service support , Pelvis CT 03/17/18 18:35 IMPRESSION: Suspected L3 fracture. Large right buttock hematoma. Electronically Signed: Nancy Bryant MD at 20:17 EST Tel , Service support , Brain CT 03/18/18 12:24 IMPRESSION: Chronic involutional changes without evidence of acute intracranial or calvarial abnormality. Electronically Signed: Adrian Crawford DO at 13:34 EST Tel [phone], Service support , Consultations 03/21/18 07:32 Consult: Onc/Wound/processor solid propellant Routine Comment: Reason for Consult:: wound vac application Gage Dudley MD. Operations: - - Surgical preparation right gluteal area with incision and drainage and evacuation and excisional debridement traumatic submuscular hematoma with extension to ischial bone (180 cm2). Summary of Care Provided: The patient is a 77 year old F presents after a falling down stairs at home. Developed a right buttock hematoma from the fall, but complicated by coumadin. Initial INR was 3.1. Patient underwent I+D and evacuation on 03/20. Wound vac placed. Patient discharged to TCU in stable condition and will continue with wound care. 1. right hip hematoma traumatic and on coumadin. POD #1 for I&D and evacuation. Debridnet with extension to ischial bone. wound vac and wound care 2. L3 vertebral fracture supportive mgmt 3. toxic encephalopathy 2/2 medications will reassess after surgery discussed with her dtr about pain control and function. 4. DVT proph SCDs. 5. pAfib rate-controlled coumadin held d/t #1, resume when ok with PRS 6. Acute blood loss anemia Hg 11.2 to 7.7 transfused 2 units PRBCs on 03/20, now 9.7 no need for additional transfusions at this time D/T # 1[] Patient Problems: Active and Suspected Problems (Last Reviewed 08/26/17 @ 13:09 by Zoë Duke) Compression fracture of L3 vertebra (Acute) Fall (Acute) Hematoma (Acute) Acute blood loss anemia (Acute) - Physical Exam Vital Signs Temp Pulse Resp BP Pulse Ox 36.4 C L 53 L 18 134/49 H 97 03/21/18 08:30 03/21/18 08:30 03/21/18 08:30 03/21/18 08:30 03/21/18 08:30 Oxygen Flow Rate (L/min) 2 Oxygen Delivery Method Room Air Weight: 85.2 kg Body Mass Index (BMI) 32.2 Intake and Output for Last 24 Hours 03/19/18 03/20/18 03/21/18 23:59 23:59 23:59 Intake Total 1160 / 1160 2760 / 2760 2178 / 2178 Output Total 300 / 300 1400 / 1400 1275 / 1275 Balance 860 / 860 1360 / 1360 903 / 903 Laboratory Tests Past 24 Hrs 03/20/18 03/20/18 03/20/18 12:05 17:08 17:08 WBC 7.9 RBC 2.83 L Hgb 9.0 L Hct 27.4 L MCV 96.8 MCH 31.8 MCHC 32.8 RDW 14.0 RDW Differential 46.7 H Plt Count 135 L MPV 10.5 Immature Gran % (Auto) Neut % (Auto) Lymph % (Auto) [place] % (Auto) Eos % (Auto) Baso % (Auto) Absolute Neuts (auto) Absolute Lymphs (auto) Total Counted PT INR Sodium 141 Potassium 3.7 Chloride 104 Carbon Dioxide 28.0 Anion Gap 9 BUN 20 H Creatinine 0.94 Estim Creat Clear Calc 43.97 Est GFR (MDRD) Af Amer 75 Est GFR (MDRD) Non-Af 62 BUN/Creatinine Ratio 21.4 H Glucose 105 Calcium 8.2 L Prealbumin 25.2 Blood Type A POSITIVE Antibody Screen NEGATIVE Crossmatch See Detail 03/21/18 03/21/18 03/21/18 06:10 06:10 06:10 WBC 8.5 RBC 3.07 L Hgb 9.7 L Hct 29.3 L MCV 95.4 MCH 31.6 MCHC 33.1 RDW 15.9 H RDW Differential 52.4 H Plt Count 145 L MPV 9.9 Immature Gran % (Auto) 0.700 Neut % (Auto) 73.4 H Lymph % (Auto) 13.8 L [place] % (Auto) 9.7 Eos % (Auto) 2.3 Baso % (Auto) 0.1 Absolute Neuts (auto) 6.2 Absolute Lymphs (auto) 1.18 Total Counted Not Reportable PT 14.8 INR 1.2 Sodium 141 Potassium 4.0 Chloride 103 Carbon Dioxide 30.0 Anion Gap 8 BUN 21 H Creatinine 1.01 Estim Creat Clear Calc 40.92 Est GFR (MDRD) Af Amer 68 Est GFR (MDRD) Non-Af 57 L BUN/Creatinine Ratio 20.8 H Glucose 98 Calcium 8.3 L Prealbumin Blood Type Antibody Screen Crossmatch Home Medications: Medications to take at Discharge Atorvastatin Calcium [Lipitor] 20 mg PO QHS 10/17/14 Ergocalciferol [Vitamin D] 5,000 unit PO QODAY 10/17/14 Levothyroxine [Synthroid] 100 mcg PO DAILY 10/17/14 Sertraline HCl [Zoloft] 100 mg PO DAILY 10/17/14 Acetaminophen [Tylenol Tablet] 650 mg PO Q6H PRN PRN tab 07/13/17 Carvedilol 6.25 mg PO BID 03/17/18 Hydrochlorothiazide [Hctz] 25 mg PO QAM 03/17/18 Carvedilol [Coreg (Beta Jack)] 6.25 mg PO BID tablet 03/21/18 Doxycycline 100 mg PO BID #10 capsule 03/21/18 Ensure Enlive 120 ml PO 4X/DAY liquid 03/21/18 Oxycodone [Oxyir] 5 mg PO Q6H PRN 3 Days #18 tab 03/21/18 fentaNYL patch [Duragesic Patch] 12 mcg TRANSDERM. Q3D 3 Days #1 patch 03/21/18 Following Prescrptions Were Given to Patient: fentaNYL patch [Duragesic Patch] 12 mcg TRANSDERM. Q3D 3 Days #1 patch Oxycodone [Oxyir] 5 mg PO Q6H PRN 3 Days #18 tab PRN Reason: Severe Pain (-01/18) Primary Care Physician: Mauricio Barney MD [Primary Care Provider] - Within 2 Weeks Please Follow Up With: Gage Dudley MD When: 1 week Medical Necessity - Tobacco Use Smoking Status: Never smoker Meaningful Use Info Meaningful Use Diagnoses (Choose all that apply): None applicable Code Visit Inpatient E&M: 61760 Disch Hosp
--- NOTE | 2018-03-21 14:52 | DS.PCM_ITS ---
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 Suspected acute L3 fracture without significant loss of vertebral body height. 2. Noncompressive L5-S1 disc protrusion. Electronically Signed: Nancy Bryant MD at 20:06 EST Tel , Service support , Pelvis CT 03/17/18 18:35 IMPRESSION: Suspected L3 fracture. Large right buttock hematoma. Electronically Signed: Nancy Bryant MD at 20:17 EST Tel , Service support , Brain CT 03/18/18 12:24 IMPRESSION: Chronic involutional changes without evidence of acute intracranial or calvarial abnormality. Electronically Signed: Adrian Crawford DO at 13:34 EST Tel [phone], Service support , Consultations 03/21/18 07:32 Consult: Onc/Wound/imaging center manager Routine Comment: Reason for Consult:: wound vac application Gage Dudley MD. Operations: - - Surgical preparation right gluteal area with incision and drainage and evacuation and excisional debridement traumatic submuscular hematoma with extension to ischial bone (180 cm2). Summary of Care Provided: The patient is a 77 year old F presents after a falling down stairs at home. Developed a right buttock hematoma from the fall, but complicated by coumadin. Initial INR was 3.1. Patient underwent I+D and evacuation on 03/20. Wound vac placed. Patient discharged to TCU in stable condition and will continue with wound care. 1. right hip hematoma * traumatic and on coumadin. * POD #1 for I&D and evacuation. Debridnet with extension to ischial bone. * wound vac and wound care 2. L3 vertebral fracture * supportive mgmt 3. toxic encephalopathy * 2/2 medications * will reassess after surgery * discussed with her dtr about pain control and function. 4. DVT proph SCDs. 5. pAfib * rate-controlled * coumadin held d/t #1, resume when ok with PRS 6. Acute blood loss anemia * Hg 11.2 to 7.7 * transfused 2 units PRBCs on 03/20, now 9.7 * no need for additional transfusions at this time * D/T # 1[] Patient Problems: Active and Suspected Problems (Last Reviewed 08/26/17 @ 13:09 by Zoë Duke) Compression fracture of L3 vertebra (Acute) Fall (Acute) Hematoma (Acute) Acute blood loss anemia (Acute) - Physical Exam Vital Signs Temp Pulse Resp BP Pulse Ox 36.4 C L 53 L 18 134/49 H 97 03/21/18 08:30 03/21/18 08:30 03/21/18 08:30 03/21/18 08:30 03/21/18 08:30 Oxygen Flow Rate (L/min) 2 Oxygen Delivery Method Room Air Weight: 85.2 kg Body Mass Index (BMI) 32.2 Intake and Output for Last 24 Hours 03/19/18 03/20/18 03/21/18 23:59 23:59 23:59 Intake Total 1160 / 1160 2760 / 2760 2178 / 2178 Output Total 300 / 300 1400 / 1400 1275 / 1275 Balance 860 / 860 1360 / 1360 903 / 903 Laboratory Tests Past 24 Hrs 03/20/18 03/20/18 03/20/18 12:05 17:08 17:08 WBC 7.9 RBC 2.83 L Hgb 9.0 L Hct 27.4 L MCV 96.8 MCH 31.8 MCHC 32.8 RDW 14.0 RDW Differential 46.7 H Plt Count 135 L MPV 10.5 Immature Gran % (Auto) Neut % (Auto) Lymph % (Auto) [place] % (Auto) Eos % (Auto) Baso % (Auto) Absolute Neuts (auto) Absolute Lymphs (auto) Total Counted PT INR Sodium 141 Potassium 3.7 Chloride 104 Carbon Dioxide 28.0 Anion Gap 9 BUN 20 H Creatinine 0.94 Estim Creat Clear Calc 43.97 Est GFR (MDRD) Af Amer 75 Est GFR (MDRD) Non-Af 62 BUN/Creatinine Ratio 21.4 H Glucose 105 Calcium 8.2 L Prealbumin 25.2 Blood Type A POSITIVE Antibody Screen NEGATIVE Crossmatch See Detail 03/21/18 03/21/18 03/21/18 06:10 06:10 06:10 WBC 8.5 RBC 3.07 L Hgb 9.7 L Hct 29.3 L MCV 95.4 MCH 31.6 MCHC 33.1 RDW 15.9 H RDW Differential 52.4 H Plt Count 145 L MPV 9.9 Immature Gran % (Auto) 0.700 Neut % (Auto) 73.4 H Lymph % (Auto) 13.8 L [place] % (Auto) 9.7 Eos % (Auto) 2.3 Baso % (Auto) 0.1 Absolute Neuts (auto) 6.2 Absolute Lymphs (auto) 1.18 Total Counted Not Reportable PT 14.8 INR 1.2 Sodium 141 Potassium 4.0 Chloride 103 Carbon Dioxide 30.0 Anion Gap 8 BUN 21 H Creatinine 1.01 Estim Creat Clear Calc 40.92 Est GFR (MDRD) Af Amer 68 Est GFR (MDRD) Non-Af 57 L BUN/Creatinine Ratio 20.8 H Glucose 98 Calcium 8.3 L Prealbumin Blood Type Antibody Screen Crossmatch Home Medications: Medications to take at Discharge Atorvastatin Calcium [Lipitor] 20 mg PO QHS 10/17/14 Ergocalciferol [Vitamin D] 5,000 unit PO QODAY 10/17/14 Levothyroxine [Synthroid] 100 mcg PO DAILY 10/17/14 Sertraline HCl [Zoloft] 100 mg PO DAILY 10/17/14 Acetaminophen [Tylenol Tablet] 650 mg PO Q6H PRN PRN tab 07/13/17 Carvedilol 6.25 mg PO BID 12/07/18 Hydrochlorothiazide [Hctz] 25 mg PO QAM 03/17/18 Carvedilol [Coreg (Beta Jack)] 6.25 mg PO BID tablet 03/21/18 Doxycycline 100 mg PO BID #10 capsule 03/21/18 Ensure Enlive 120 ml PO 4X/DAY liquid 03/21/18 Oxycodone [Oxyir] 5 mg PO Q6H PRN 3 Days #18 tab 03/21/18 fentaNYL patch [Duragesic Patch] 12 mcg TRANSDERM. Q3D 3 Days #1 patch 03/21/18 Following Prescrptions Were Given to Patient: fentaNYL patch [Duragesic Patch] 12 mcg TRANSDERM. Q3D 3 Days #1 patch Oxycodone [Oxyir] 5 mg PO Q6H PRN 3 Days #18 tab PRN Reason: Severe Pain (6-01/18) Primary Care Physician: Mauricio Barney MD [Primary Care Provider] - Within 2 Weeks Please Follow Up With: Gage Dudley MD When: 1 week Medical Necessity - Tobacco Use Smoking Status: Never smoker Meaningful Use Info Meaningful Use Diagnoses (Choose all that apply): None applicable Code Visit Inpatient E&M: 18654 Disch Hosp
--- NOTE | 2018-03-21 15:02 | NURSING ---
Attempt to call report to RN on TCU. They request she call back to get report.
--- NOTE | 2018-03-21 15:11 | NURSING ---
Report given to JAYDEN Vann, in TCU.
[2018-03-21 15:17] VITALS: BP 133/54; PULSE 61; RESP 16; TEMP 37; O2SAT 94
--- NOTE | 2018-03-21 17:06 | PCM.PN.SRG ---
Subjective: Postop #1 Patient is having right gluteal wound pain. VAC applied today. - Physical Exam General: Alert, Oriented x3 HEENT: PERRLA, EOMI Oral: Moist Mucosa Neck: Supple Abdomen: Soft, Non-Distended Skin: Ulcer/ Wound - right gluteal wound is stable. No active bleeding seen. VAC applied today. Neurological: Cranial nerves II-XII grossly intact Psych/Mental Status: Normal Affect, Appropriate Vital Signs Temp Pulse Resp BP Pulse Ox 98.6 F 61 16 133/54 H 94 03/21/18 15:17 03/21/18 15:17 03/21/18 15:17 03/21/18 15:17 03/21/18 15:17 Oxygen Flow Rate (L/min) 2 Oxygen Delivery Method Room Air Weight: 187 lb 13.341 oz Body Mass Index (BMI) 32.2 Intake and Output for Last 24 Hours 03/20/18 03/21/18 03/22/18 23:59 23:59 23:59 Intake Total 2760 / 2760 2178 / 2178 Output Total 1400 / 1400 1275 / 1275 Balance 1360 / 1360 903 / 903 Laboratory Tests Past 24 Hrs 03/20/18 03/21/18 03/21/18 12:05 06:10 06:10 WBC 8.5 RBC 3.07 L Hgb 9.7 L Hct 29.3 L MCV 95.4 MCH 31.6 MCHC 33.1 RDW 15.9 H RDW Differential 52.4 H Plt Count 145 L MPV 9.9 Immature Gran % (Auto) 0.700 Neut % (Auto) 73.4 H Lymph % (Auto) 13.8 L [place] % (Auto) 9.7 Eos % (Auto) 2.3 Baso % (Auto) 0.1 Absolute Neuts (auto) 6.2 Absolute Lymphs (auto) 1.18 Total Counted Not Reportable PT 14.8 INR 1.2 Sodium Potassium Chloride Carbon Dioxide Anion Gap BUN Creatinine Estim Creat Clear Calc Est GFR (MDRD) Af Amer Est GFR (MDRD) Non-Af BUN/Creatinine Ratio Glucose Calcium Crossmatch See Detail 03/21/18 06:10 WBC RBC Hgb Hct MCV MCH MCHC RDW RDW Differential Plt Count MPV Immature Gran % (Auto) Neut % (Auto) Lymph % (Auto) [place] % (Auto) Eos % (Auto) Baso % (Auto) Absolute Neuts (auto) Absolute Lymphs (auto) Total Counted PT INR Sodium 141 Potassium 4.0 Chloride 103 Carbon Dioxide 30.0 Anion Gap 8 BUN 21 H Creatinine 1.01 Estim Creat Clear Calc 40.92 Est GFR (MDRD) Af Amer 68 Est GFR (MDRD) Non-Af 57 L BUN/Creatinine Ratio 20.8 H Glucose 98 Calcium 8.3 L Crossmatch Medical Necessity - Tobacco Use Smoking Status: Never smoker Assessment/Plan All Active Problems (Last Updated 03/21/18 @ 22:18 by Gage Dudley MD) Open wound of right buttock with complication (Acute) Traumatic hematoma of buttock (Acute) Hematoma of right lower extremity (Acute) Compression fracture of L3 vertebra (Acute) Fall (Acute) Hematoma (Acute) Acute blood loss anemia (Acute) Atrial fibrillation with RVR (Resolved) Cellulitis and abscess of leg (Resolved) Influenza B (Resolved) Influenzal bronchiolitis (Resolved) 1. Traumatic submuscular hematoma right gluteal area with extension to ischial bone and onto proximal posterior thigh. 2. Fall from stairs. 3. 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 4. s/p surgical preparation right gluteal and proximal posterior thigh area with incision and drainage and evacuation and excisional debridement traumatic submuscular hematoma with extension to ischial bone and onto proximal posterior thigh (180 cm2). Right gluteal wound is stable. No active bleeding seen. VAC applied today. Hgb 9.7 after PRBC. Continue Cleocin. Prealbumin was 25.2. Encourage nutritional supplementation with protein to help the healing process. She has been approved to go to TCU today. After discharge, followup at the [facility].
--- NOTE | 2018-03-22 00:05 | OP.PCM_ITS ---
Report of Operation Date of Procedure: 03/20/18 Pre-Operative Diagnosis: 1. Traumatic hematoma right gluteal area with ex tension onto proximal posterior thigh. 2. Fall from stairs. 3. shelter use of anticoagulation. Post-Operative Diagnosis: 1. Traumatic submuscular hematoma right gluteal area with extension to ischial bone and onto proximal posterior thigh. 2. Fall from stairs. 3. shelter use of anticoagulation. Surgery/Procedure Performed:: Surgical preparation right gluteal and proximal posterior thigh area with incision and drainage and evacuation and excisional debridement traumatic submuscular hematoma with extension to ischial bone and onto proximal posterior thigh (180 cm2). Description of Surgical Findings:: The patient is a 77 year old F who presented to the ED yesterday after falling down a couple of stairs at home. She says that the fall was mechanical in nature, she was bringing a walker out of the attic and she missed a step. The walker was for her daughter's [id number]. This happened earlier in the morning and as the day progressed she had worsening pain and could not sit upright and would become lightheaded on occasion. When she presented to the ER she was found to have a large hematoma on her right buttock that was very firm and indurated with ecchymosis. She denies hitting her head. She states that she can move her toes and she can feel her legs. She currently takes Coumadin for her atrial fibrillation. She underwent a CT Pelvis on 03/17/18 which showed a soft tissue hematoma in the right buttock measuring approximately 8 x 8.5 cm. Swelling and edema of the right gluteus david is noted. Hgb on admission was 12.5. The next day the Hgb was 11.2. I was asked to evaluate this patient for surgical options for treatment. Patient was informed of the risks and complications of the procedure including alternatives to surgery. These were discussed with the patient personally. Patient voices understanding and wishes to proceed. Size of defect right gluteal area - 10 x 18 x 6 cm. 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 Drains: None. Estimated Blood Loss (mL): 450 ml. Description of Procedure: Patient was taken to OR in supine position and was placed under general anesthesia. She was then placed in the lateral position. The right gluteal and proximal posterior thigh area was prepped and draped in the usual fashion. SCD 's were placed for DVT prophylaxis. Perioperative antibiotics were given intravenously. An oblique incision was made over the right gluteal area over the area of greatest firmness and induration. I dissected into the subcutaneous tissue. A large hematoma was noted. Some active bleeding seen from the gluteal muscle and cauterized. The gluteus muscle was moderately bruised. The hematoma extended in a submuscular position deep the the gluteus muscle all the way down to the ischial bone. There was also extension of the hematoma deep into the proximal posterior thigh. About 450 ml of blood loss was seen and most of it was blood clot from the hematoma. The wound was copiously irrigated with saline. The bruised gluteus muscle looked more viable after irrigation. Some bleeding points were cauterized for hemostasis. The overlying skin showed extensive ecchymosis with some skin necrosis. The nonviable skin and subcutaneous tissue was excised and debrided. Tissue was sent to Pathology for analysis. There was no evidence of infection and no evidence of necrotizing process at this time. So no culture was obtained. The size of the defect after incision and drainage and evacuation and excisional debridement of the hematoma was 10 x 18 x 6 cm or 180 cm2. The wound was then dressed with Mepitel nonadherent dressing followed by Kerlix gauze and Betadine followed by dry Kerlix gauze and ABD pads compression dressing. Patient tolerated the procedure well and was sent to PACU in satisfactory condition. Patient will be sent upstairs for continued postop care. The VAC will be placed tomorrow. Grafts/Implants Used: None. - Complications None. - Admit VTE Documentation VTE Present on Admission: No - Patient is on Coumadin for atrial fibrillation. VTE Mechan Device Prophylaxis: SCD's VTE Pharm Prophylaxis ordered?: Yes Code Visit Surgery Charges CPT - 10254 ICD-10 - S30.0xxA, S80.11xA, W19.xxxA, Z79.01 77049 S80.11xA, S30.0xxA, W19.xxxA, Z79.01 98452 S31.819A, S30.0xxA, S80.11xA, W19.xxxA, Z79.01 95345 S31.819A, S30.0xxA, S80.11xA, W19.xxxA, Z79.01
== END 2018-03-21 15:36 | disposition skilled nursing facility (03) | DRG 570 ==
LOC: ED 18:32 → MS3 22:26
PROVIDERS: Anesthesiology; Internal Medicine; Surgery; Admitting Provider Family Medicine; Emergency Provider Emergency Medicine; Family Provider Family Medicine; PCP Family Medicine
PROC: 0KCN0ZZ Extirpation of Matter from Right Hip Muscle, Open Approach (ICD-10-PCS; principal; 2018-03-20 14:50)
DX: S70.01XA Contusion of right hip, initial encounter (principal); G92 Toxic encephalopathy; D62 Acute posthemorrhagic anemia; D68.32 Hemorrhagic disorder due to extrinsic circulating anticoagulants; M80.88XA Other osteoporosis with current pathological fracture, vertebra(e), initial encounter for fracture; W10.8XXA Fall (on) (from) other stairs and steps, initial encounter; S70.11XA Contusion of right thigh, initial encounter; Y92.018 Other place in single-family (private) house as the place of occurrence of the external cause; E03.9 Hypothyroidism, unspecified; F32.9 Major depressive disorder, single episode, unspecified; T50.905A Adverse effect of unspecified drugs, medicaments and biological substances, initial encounter; T45.515A Adverse effect of anticoagulants, initial encounter; M06.9 Rheumatoid arthritis, unspecified; I10 Essential (primary) hypertension; E78.5 Hyperlipidemia, unspecified; I48.0 Paroxysmal atrial fibrillation; Z79.01 Long term (current) use of anticoagulants; Z79.899 Other long term (current) drug therapy
CPT/HCPCS: 36415; 70450; 72131; 72192; 80048; 82550; 84134; 84443; 85025; 85027; 85610; 85730; 86850; 86900; 86920; 86922; 88304; 93005; 97110; 97127; 97162; 97166; 97530; 99284; J7040; P9016; A4216; G0515; J2405

== ENCOUNTER 2018-03-21 15:50 | Inpatient (IN) | payer MEDICARE, SELFPAY ==
[2018-03-20 12:44] VITALS: BMI 32.2
[2018-03-21 16:14] VITALS: BP 123/75; PULSE 59; RESP 16; TEMP 36.9; O2SAT 95
[2018-03-21 16:26] VITALS: BMI 32.8
[2018-03-21 16:33] VITALS: BMI 32.8
--- NOTE | 2018-03-21 17:15 | NURSING ---
Pt admitted to rm 18 from [facility]3 via bed. Patient oriented to room and call light system explained.
[2018-03-21] MEDS: Carvedilol 6.25 MG Tablet PO (17:44)
--- NOTE | 2018-03-21 18:19 | NURSING ---
Dr. Jaimes in to see patient. NO to increase oxyir to [id number] PRN.
[2018-03-21] MEDS: oxyCODONE 5 MG Tablet PO ×2 (18:42→23:49)
--- NOTE | 2018-03-21 20:20 | PCM.HP.STD ---
Problem List (1) Atrial fibrillation Status: Chronic (2) Hypothyroidism Status: Chronic (3) 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 Status: Chronic (4) Peptic ulcer disease Status: Chronic (5) Rheumatoid arthritis Status: Chronic (6) Gastrointestinal bleed Status: Chronic (7) Vitamin D deficiency Status: Chronic (8) Depression Status: Chronic (9) Acute blood loss anemia Status: Acute (10) Compression fracture of L3 vertebra Status: Acute (11) DVT (deep venous thrombosis) Status: Chronic Comment: right lower leg (12) Fall Status: Acute (13) Hematoma Status: Acute (14) Hyperlipidemia Status: Chronic Qualifiers: History of Present Illness Date of Admission: 03/21/18 Chief Complaint: Here for rehabilitation, strengthening, wound care, prior to discharge home with spouse. The patient is a 77 year old Female with below past medical history presented to [facility] Emergency Department 03/17/2018 with fall. 03/17/2018 CT spine L3 compression fracture, L5-S1 disc protrusion. 03/17/2018 CT pelvis L3 fracture, large right buttock hematoma. Fell down stairs, fell onto right buttock, right side. Pain lower back, Right buttock, radiating down right leg. Patient on warfarin. WBC 14, INR 3.1, CK okay. 03/17/2018 Admit to Hospital. Used to be on Eliquis until rectal bleed, then back on warfarin so it could be monitored. Hold warfarin. Monitor right buttock hematoma. 03/18/2018 CT brain chronic involutional changes. 03/20/2018 Dr. Dudley incised and drained right gluteal hematoma with extension to ischial bone. Wound VAC applied. L3 compression fracture treated with supportive care. Encephalopathy secondary to opioid pain medications improved. Transfused 2 units PRBC, post transfusion hemoglobin 9.7. 03/21/2018 Admit to TCU with debility, here for rehabilitation, strengthening, wound care prior to discharge home with spouse. 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) DVT (deep venous thrombosis) (Chronic) right lower leg Hyperlipidemia (Chronic) Paroxysmal atrial fibrillation (Chronic) Medical History: Medical History (Last Reviewed 08/26/17 @ 13:09 by Zoë Duke) DVT (deep venous thrombosis) (Chronic) I82.409 right lower leg Hyperlipidemia (Chronic) E78.5 Paroxysmal atrial fibrillation (Chronic) I48.0 Hypothyroidism E03.9 Immunosuppressed status D89.9 on Humira 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 M81.0 Peptic ulcer disease K27.9 Rheumatoid arthritis M06.9 Atrial fibrillation with RVR (Resolved) I48.91 Cellulitis of left lower extremity L03.116 GI bleed K92.2 History of Clostridium difficile (Inactive) Z87.19 Allergies cephalexin monohydrate [From Keflex] Allergy (Verified 03/17/18 18:05) Hives ethchlorvynol [From Placidyl] Allergy (Verified 03/17/18 18:05) Unknown NSAIDS (Non-Steroidal Anti-Inflamma Allergy (Verified 03/17/18 18:05) Unknown Penicillins [PCN] Allergy (Verified 03/17/18 18:05) Unknown Sulfa (Sulfonamide Antibiotics) Allergy (Verified 03/17/18 18:05) Rash sulfamethoxazole [From Septra] Allergy (Verified 03/17/18 18:05) Unknown trimethoprim [From Septra] Allergy (Verified 03/17/18 18:05) Unknown Home Medications: Ambulatory Orders Medication Instructions Recorded Atorvastatin Calcium [Lipitor] 20 mg PO QHS 10/17/14 Ergocalciferol [Vitamin D] 5,000 unit PO QODAY 10/17/14 Levothyroxine [Synthroid] 100 mcg PO DAILY 10/17/14 Sertraline HCl [Zoloft] 100 mg PO DAILY 10/17/14 Acetaminophen [Tylenol Tablet] 650 mg PO Q6H PRN PRN tab 07/13/17 Carvedilol 6.25 mg PO BID 03/17/18 Hydrochlorothiazide [Hctz] 25 mg PO QAM 03/17/18 Doxycycline 100 mg PO BID 03/21/18 Ensure Enlive 120 ml PO 4X/DAY 03/21/18 Oxycodone [Oxyir] 5 mg PO Q6H PRN 3 Days #18 tab 03/21/18 fentaNYL patch [Duragesic Patch] 12 mcg TRANSDERM. Q3D 03/21/18 Surgical History: Surgical History (Last Updated 09/26/17 @ 10:17 by Zoë Duke) H/O colectomy Z90.49 H/O shoulder surgery Z98.890 left H/O total hysterectomy Z90.710 History of arthroplasty of left knee Z96.652 History of bunionectomy of both great toes Z98.890 History of left heart catheterization Onset Date: ~1999 Z98.890 @ [facility] History of right knee joint replacement Z96.651 History of tonsillectomy and adenoidectomy Z98.890 Hx of cholecystectomy Z90.49 surgical debridement left lower extremity Onset Date: ~10/2014 Surgical History: adenoidectomy, cholecystectomy, colectomy, hysterectomy, total knee arthroplasty - Bilateral, tonsillectomy, - - Shoulder surgery, bilateral bunionectomy, left heart cath, left lower extremity surgical debridement(hematoma). 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 Lives: Spouse/ Significant Other Smoking Status: Never smoker Tobacco Use: Non-smoker Alcohol: None Drugs: None - *Family History Maternal Family History: Family History (Last Reviewed 08/26/17 @ 13:09 by Zoë Duke) Father CAD (coronary artery disease) Mother Breast cancer History Items: Cancer - mother had breast CA in her 90's, Unknown Paternal Family History: Family History (Last Reviewed 08/26/17 @ 13:09 by Zoë Duke) Father CAD (coronary artery disease) Mother Breast cancer History Items: Heart Disease, - - aneurysm in her father who from CAD and aneurym at 74 Sibling Family History: Family History (Last Reviewed 08/26/17 @ 13:09 by Zëo Duke) Father CAD (coronary artery disease) Mother Breast cancer History Items: Cancer - she had a brother with throat cancer, - - she had a sister with severe epilepsy who lived in a [place] and Review of Systems Constitutional: Denies: Chills, Fever, Weight Change HEENT: Denies: Head Aches, Sinus Congestion, Sinus Drainage Cardiovascular: Denies: Chest Pain, Palpitations Respiratory: Denies: Cough, Shortness of breath at rest, Sputum production Gastrointestinal: Denies: Abdominal Pain, Nausea, Vomiting Genitourinary: Denies: Dysuria Musculoskeletal: Denies: Joint Pain, Joint Tenderness Skin: Denies: Rash, Wounds Neurological: Denies: Numbness, Tingling, Focal weakness Psychiatric: Denies: Anxiety, Depression, Homicidal Ideations, Suicidal Ideations Hematologic/ Lymphatic: Denies: Easy Bruising, Easy Bleeding VTE Information - Inpt Only VTE Present on Admission: No VTE Mechan Device Prophylaxis: SCD's VTE Pharm Prophylaxis ordered?: No Reason prophylaxis not ordered:: Medical Contraindication - Physical Exam General: Alert, Oriented x3, Cooperative HEENT: Atraumatic, PERRLA, EOMI, Normocephalic Neck: Supple, No JVD, Negative Carotid Bruits Lungs: Clear to auscultation, Normal air movement Cardiovascular: Regular rate, No murmurs Abdomen: Bowel Sounds Present, Soft, Non Tender Extremities: No edema, Capillary Refill Less than 3 Seconds Skin: No rashes, No breakdown, Incision - Right buttock wound with wound vac dressing. Musculoskeletal: No Tenderness to Palpation of Joints or Extremities Neurological: Cranial nerves II-XII grossly intact Psych/Mental Status: Normal Affect, Appropriate Vital Signs Temp Pulse Resp BP Pulse Ox 98.5 F 59 L 16 123/75 H 95 03/21/18 16:14 03/21/18 16:14 03/21/18 16:14 03/21/18 16:14 03/21/18 16:14 Oxygen Delivery Method Room Air Weight: 86.8 kg Body Mass Index (BMI) 32.8 Intake and Output for Last 24 Hours 03/19/18 03/20/18 03/21/18 23:59 23:59 23:59 Intake Total 240 / 240 Balance 240 / 240 Assessment/Plan All Active Problems (Last Reviewed 08/26/17 @ 13:09 by Zoë Duke) Compression fracture of L3 vertebra (Acute) Fall (Acute) Hematoma (Acute) Acute blood loss anemia (Acute) Atrial fibrillation with RVR (Resolved) Cellulitis and abscess of leg (Resolved) Influenza B (Resolved) Influenzal bronchiolitis (Resolved) 77 year old female with below past medical history hospitalized for fall, right buttock hematoma requiring I+D with wound vac per Dr. Dudley 03/20/2018, complicated by L3 compression fracture, acute blood loss anemia requiring transfusion, encephalopathy secondary to opioid pain medications, admitted to TCU with debility, here for rehabilitation, strengthening, wound care, prior to discharge home with spouse. Debility - PT/OT. Pain - Tylenol 1000MG Q6H PRN mild pain, Fentanyl patch 12MCG TD Q3 days, Oxycodone 5MG Q4H PRN severe pain. Bowel - Miralax 17GM daily, Senna/colace 2 tablets BID, Dulcolax 10MG po daily PRN. Pneumonia vaccination - Administer Prevnar 13 and/or Pneumovax 23 as necessary. DVT prophylaxis - wound vac drainage bloody, will resume anticoagulation once drainage non bloody, Sequential Compression Devices for now. Hyperlipidemia - Atorvastatin 20MG QHS. Atrial Fibrillation - Coreg 6.25MG BID, resume anticoagulation with warfarin/Lovenox once right buttock bleeding stopped. Right buttock wound - Wound Vac, Wound Team, Doxycycline 100MG BID thru 03/31/2018. Nutrition - Ensure 120ML 4x/day, Rivera 1 packet twice daily. Hypertension - Coreg 6.25MG BID, HCTZ 25MG daily. Hypothyroidism - Levothyroxine 100MCG daily. Depression - Sertraline 100MG daily, resident doing well with chronic senior living use, GDR clinically contraindicated. L3 compression fracture - Pain control as above.
--- NOTE | 2018-03-21 20:24 | HP.PCM_ITS ---
Problem List (1) Atrial fibrillation Status: Chronic (2) Hypothyroidism Status: Chronic (3) 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 Status: Chronic (4) Peptic ulcer disease Status: Chronic (5) Rheumatoid arthritis Status: Chronic (6) Gastrointestinal bleed Status: Chronic (7) Vitamin D deficiency Status: Chronic (8) Depression Status: Chronic (9) Acute blood loss anemia Status: Acute (10) Compression fracture of L3 vertebra Status: Acute (11) DVT (deep venous thrombosis) Status: Chronic Comment: right lower leg (12) Fall Status: Acute (13) Hematoma Status: Acute (14) Hyperlipidemia Status: Chronic Qualifiers: History of Present Illness Date of Admission: 03/21/18 Chief Complaint: Here for rehabilitation, strengthening, wound care, prior to discharge home with spouse. The patient is a 77 year old Female with below past medical history presented to [facility] Emergency Department 03/17/2018 with fall. 03/17/2018 CT spine L3 compression fracture, L5-S1 disc protrusion. 03/17/2018 CT pelvis L3 fracture, large right buttock hematoma. Fell down stairs, fell onto right buttock, right side. Pain lower back, Right buttock, radiating down right leg. Patient on warfarin. WBC 14, INR 3.1, CK okay. 03/17/2018 Admit to Hospital. Used to be on Eliquis until rectal bleed, then back on warfarin so it could be monitored. Hold warfarin. Monitor right buttock hematoma. 03/18/2018 CT brain chronic involutional changes. 03/20/2018 Dr. Dudley incised and drained right gluteal hematoma with extension to ischial bone. Wound VAC applied. L3 compression fracture treated with supportive care. Encephalopathy secondary to opioid pain medications improved. Transfused 2 units PRBC, post transfusion hemoglobin 9.7. 03/21/2018 Admit to TCU with debility, here for rehabilitation, strengthening, wound care prior to discharge home with spouse. 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) DVT (deep venous thrombosis) (Chronic) right lower leg Hyperlipidemia (Chronic) Paroxysmal atrial fibrillation (Chronic) Medical History: Medical History (Last Reviewed 08/26/17 @ 13:09 by Zoë Duke) DVT (deep venous thrombosis) (Chronic) I82.409 right lower leg Hyperlipidemia (Chronic) E78.5 Paroxysmal atrial fibrillation (Chronic) I48.0 Hypothyroidism E03.9 Immunosuppressed status D89.9 on Humira 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 M81.0 Peptic ulcer disease K27.9 Rheumatoid arthritis M06.9 Atrial fibrillation with RVR (Resolved) I48.91 Cellulitis of left lower extremity L03.116 GI bleed K92.2 History of Clostridium difficile (Inactive) Z87.19 Allergies cephalexin monohydrate [From Keflex] Allergy (Verified 03/17/18 18:05) Hives ethchlorvynol [From Placidyl] Allergy (Verified 03/17/18 18:05) Unknown NSAIDS (Non-Steroidal Anti-Inflamma Allergy (Verified 03/17/18 18:05) Unknown Penicillins [PCN] Allergy (Verified 03/17/18 18:05) Unknown Sulfa (Sulfonamide Antibiotics) Allergy (Verified 03/17/18 18:05) Rash sulfamethoxazole [From Septra] Allergy (Verified 03/17/18 18:05) Unknown trimethoprim [From Septra] Allergy (Verified 03/17/18 18:05) Unknown Home Medications: Ambulatory Orders Medication Instructions Recorded Atorvastatin Calcium [Lipitor] 20 mg PO QHS 10/17/14 Ergocalciferol [Vitamin D] 5,000 unit PO QODAY 10/17/14 Levothyroxine [Synthroid] 100 mcg PO DAILY 10/17/14 Sertraline HCl [Zoloft] 100 mg PO DAILY 10/17/14 Acetaminophen [Tylenol Tablet] 650 mg PO Q6H PRN PRN tab 07/13/17 Carvedilol 6.25 mg PO BID 03/17/18 Hydrochlorothiazide [Hctz] 25 mg PO QAM 03/17/18 Doxycycline 100 mg PO BID 03/21/18 Ensure Enlive 120 ml PO 4X/DAY 03/21/18 Oxycodone [Oxyir] 5 mg PO Q6H PRN 3 Days #18 tab 03/21/18 fentaNYL patch [Duragesic Patch] 12 mcg TRANSDERM. Q3D 03/21/18 Surgical History: Surgical History (Last Updated 09/26/17 @ 10:17 by Zoë Duke) H/O colectomy Z90.49 H/O shoulder surgery Z98.890 left H/O total hysterectomy Z90.710 History of arthroplasty of left knee Z96.652 History of bunionectomy of both great toes Z98.890 History of left heart catheterization Onset Date: ~1999 Z98.890 @ [facility] [place] History of right knee joint replacement Z96.651 History of tonsillectomy and adenoidectomy Z98.890 Hx of cholecystectomy Z90.49 surgical debridement left lower extremity Onset Date: ~10/2014 Surgical History: adenoidectomy, cholecystectomy, colectomy, hysterectomy, total knee arthroplasty - Bilateral, tonsillectomy, - - Shoulder surgery, bilateral bunionectomy, left heart cath, left lower extremity surgical debridement(hematoma). 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 Lives: Spouse/ Significant Other Smoking Status: Never smoker Tobacco Use: Non-smoker Alcohol: None Drugs: None - *Family History Maternal Family History: Family History (Last Reviewed 08/26/17 @ 13:09 by Zoë Duke) Father CAD (coronary artery disease) Mother Breast cancer History Items: Cancer - mother had breast CA in her 90's, Unknown Paternal Family History: Family History (Last Reviewed 08/26/17 @ 13:09 by Zoë Duke) Father CAD (coronary artery disease) Mother Breast cancer History Items: Heart Disease, - - aneurysm in her father who from CAD and aneurym at 74 Sibling Family History: Family History (Last Reviewed 08/26/17 @ 13:09 by Zoë Duke) Father CAD (coronary artery disease) Mother Breast cancer History Items: Cancer - she had a brother with throat cancer, - - she had a sister with severe epilepsy who lived in a [facility] and Review of Systems Constitutional: Denies: Chills, Fever, Weight Change HEENT: Denies: Head Aches, Sinus Congestion, Sinus Drainage Cardiovascular: Denies: Chest Pain, Palpitations Respiratory: Denies: Cough, Shortness of breath at rest, Sputum production Gastrointestinal: Denies: Abdominal Pain, Nausea, Vomiting Genitourinary: Denies: Dysuria Musculoskeletal: Denies: Joint Pain, Joint Tenderness Skin: Denies: Rash, Wounds Neurological: Denies: Numbness, Tingling, Focal weakness Psychiatric: Denies: Anxiety, Depression, Homicidal Ideations, Suicidal Ideations Hematologic/ Lymphatic: Denies: Easy Bruising, Easy Bleeding VTE Information - Inpt Only VTE Present on Admission: No VTE Mechan Device Prophylaxis: SCD's VTE Pharm Prophylaxis ordered?: No Reason prophylaxis not ordered:: Medical Contraindication - Physical Exam General: Alert, Oriented x3, Cooperative HEENT: Atraumatic, PERRLA, EOMI, Normocephalic Neck: Supple, No JVD, Negative Carotid Bruits Lungs: Clear to auscultation, Normal air movement Cardiovascular: Regular rate, No murmurs Abdomen: Bowel Sounds Present, Soft, Non Tender Extremities: No edema, Capillary Refill Less than 3 Seconds Skin: No rashes, No breakdown, Incision - Right buttock wound with wound vac dressing. Musculoskeletal: No Tenderness to Palpation of Joints or Extremities Neurological: Cranial nerves II-XII grossly intact Psych/Mental Status: Normal Affect, Appropriate Vital Signs Temp Pulse Resp BP Pulse Ox 98.5 F 59 L 16 123/75 H 95 03/21/18 16:14 03/21/18 16:14 03/21/18 16:14 03/21/18 16:14 03/21/18 16:14 Oxygen Delivery Method Room Air Weight: 86.8 kg Body Mass Index (BMI) 32.8 Intake and Output for Last 24 Hours 03/19/18 03/20/18 03/21/18 23:59 23:59 23:59 Intake Total 240 / 240 Balance 240 / 240 Assessment/Plan All Active Problems (Last Reviewed 08/26/17 @ 13:09 by Zoë Duke) Compression fracture of L3 vertebra (Acute) Fall (Acute) Hematoma (Acute) Acute blood loss anemia (Acute) Atrial fibrillation with RVR (Resolved) Cellulitis and abscess of leg (Resolved) Influenza B (Resolved) Influenzal bronchiolitis (Resolved) 77 year old female with below past medical history hospitalized for fall, right buttock hematoma requiring I+D with wound vac per Dr. Dudley 03/20/2018, complicated by L3 compression fracture, acute blood loss anemia requiring transfusion, encephalopathy secondary to opioid pain medications, admitted to TCU with debility, here for rehabilitation, strengthening, wound care, prior to discharge home with spouse. * Debility - PT/OT. * Pain - Tylenol 1000MG Q6H PRN mild pain, Fentanyl patch 12MCG TD Q3 days, Oxycodone 5MG Q4H PRN severe pain. * Bowel - Miralax 17GM daily, Senna/colace 2 tablets BID, Dulcolax 10MG po daily PRN. * Pneumonia vaccination - Administer Prevnar 13 and/or Pneumovax 23 as necessary. * DVT prophylaxis - wound vac drainage bloody, will resume anticoagulation once drainage non bloody, Sequential Compression Devices for now. * Hyperlipidemia - Atorvastatin 20MG QHS. * Atrial Fibrillation - Coreg 6.25MG BID, resume anticoagulation with warfarin/Lovenox once right buttock bleeding stopped. * Right buttock wound - Wound Vac, Wound Team, Doxycycline 100MG BID thru 03/31/2018. * Nutrition - Ensure 120ML 4x/day, Rivera 1 packet twice daily. * Hypertension - Coreg 6.25MG BID, HCTZ 25MG daily. * Hypothyroidism - Levothyroxine 100MCG daily. * Depression - Sertraline 100MG daily, resident doing well with chronic fpc use, GDR clinically contraindicated. * L3 compression fracture - Pain control as above.
[2018-03-21] MEDS: Acetaminophen 500 MG Tablet 1000 MG PO (21:11)
[2018-03-21] MEDS: Doxycycline 100 MG CAPSULE PO (21:12)
[2018-03-21] MEDS: Atorvastatin Calcium 20 MG Tablet PO (21:12)
--- NOTE | 2018-03-21 23:08 | NURSING ---
Patient has Duragesic patch on right shoulder.
[2018-03-22 05:39] VITALS: BP 138/57; PULSE 53
[2018-03-22] MEDS: oxyCODONE 5 MG Tablet PO ×4 (05:39→20:38)
[2018-03-22] MEDS: Polyethylene Glycol 3350 17 GM PACKET PO (05:40)
[2018-03-22] MEDS: Senna/Docusate Sodium 1 Tablet 2 TABLET PO ×2 (05:40→16:38)
[2018-03-22] MEDS: hydroCHLOROthiazide 25 MG Tablet PO (05:45)
[2018-03-22] MEDS: Sertraline 100 MG Tablet PO (05:45)
[2018-03-22] MEDS: Levothyroxine 100 MCG Tablet PO (05:45)
[2018-03-22] MEDS: Nystatin Powder 15gm Bottle 1 APPLIC TOPICAL ×2 (05:50→21:33)
[2018-03-22 06:17] LABS: Absolute Lymphocyte Count 1.37 X10^3/ul (0.83-4.51); Absolute Neutrophil Count 4.7 X10^3/uL (2.0-7.7); Basophil# 0.02 X10^3/uL; Basophil% 0.3 % (0-1); Eosinophil# 0.32 X10^3/uL; Eosinophils% 4.4 % (0-5); Hematocrit 30.3 % (37-47); Hemoglobin 9.6 g/dl (12.0-15.0); Lymphocyte # 1.37 X10^3/ul (4.0); Lymphocyte % 18.9 % (19-41); Mean Corp Hgb Conc 31.7 g/gl (32-36); Mean Corpuscular Hgb 30.5 pg (27.0-32.0); Mean Corpuscular Volume 96.2 fL (81-99); Mean Platelet Vol. 10.4 fl (6.2-12.0); Monocyte# 0.74 X10^3/uL; Monocyte% 10.2 % (0-10); Neutrophil # 4.74 X10^3/uL (2.7-7.7); Neutrophil % 65.4 % (47-70); Platelet Count 169 K/mm3 (150-450); RBC Distribution Width CV 15.5 % (11.6-14.6); RBC Distribution Width SD 51.4 fl (35.1-43.9); Red Blood Count 3.15 M/mm3 (4.2-5.4); White Blood Count 7.3 K/mm3 (4.4-11.0)
[2018-03-22 06:18] LABS: POSITIVE COUNT NO; POSITIVE DIFFERENTIAL NO; POSITIVE MORPHOLOGY NO
[2018-03-22 06:27] LABS: Anion Gap 9 (5-15); BUN 23 mg/dL (7-18); BUN/Creat Ratio 23.5 RATIO (10-20); Calcium,Total 8.6 mg/dL (8.5-10.1); Chloride 103 mmol/L (98-107); Creatinine, Serum 0.98 mg/dL (0.55-1.02); EST Glomerular Filtration Rate 59 mL/min (>60); Est Glom Filt Rate - Afr Amer 71 mL/min (>60); Estimated Creatinine Clearance 42.17 ml/min; Glucose 99 mg/dL (74-106); Sodium Level 142 mmol/L (136-145)
[2018-03-22] MEDS: Carvedilol 6.25 MG Tablet PO ×3 (08:05→16:38)
[2018-03-22] MEDS: Doxycycline 100 MG CAPSULE PO ×2 (09:51→21:30)
--- NOTE | 2018-03-22 09:59 | NURSING ---
12mcg Duragesic patch d/c'd and new applied at this time, old patch flushed down toilet and witnessed by Enrique Gutiérrez LPN.
--- NOTE | 2018-03-22 11:00 | CASEMGMT ---
Insurance Clinicals faxed, Pending continued stay approval at this time. Auth# - will obtain with insurance response. Maria G Pierre, JUANITA, CHICKEN BONER
[2018-03-22] MEDS: Tuberculin,Purif.prot.deriv. 50 TU/ML Vial 5 ML ID (11:47)
[2018-03-22] MEDS: Acetaminophen 500 MG Tablet 1000 MG PO ×2 (11:53→18:46)
[2018-03-22 15:09] VITALS: BP 101/65
--- NOTE | 2018-03-22 15:18 | EKG12_ITS ---
Test Reason : AFIB Blood Pressure : / mmHG Vent. Rate : 163 BPM Atrial Rate : 106 BPM P-R Int : 000 ms QRS Dur : 074 ms QT Int : 264 ms P-R-T Axes : 000 023 195 degrees QTc Int : 434 ms Atrial fibrillation Marked ST abnormality, possible septal subendocardial injury Abnormal ECG Confirmed by ALEX LOWERY, ISIAH ([id number]), editorial writer LUCI DE LA O ([id number] on 03/24/2018 11:12:58 AM Referred By: Mac Jaimes Confirmed By:ISIAH JOHNSON MD
--- NOTE | 2018-03-22 15:18 | NURSING ---
Addendum entered by Anai Mcgarry 03/22/18 15:39: Adonay, recharger, calls Dr Jaimes and orders given to give an extra dose of coreg now. WIll continue to monitor resident. Spouse at bedside and is requesting that Dr Balderas be called and given a heads up about episode especially since resident is not currently on blood thinners at this time. Adonay, aware of this request. Original Note: Resident complaining of being dizzy. Increased dizziness with activity. Therapy does ortho's at this time and reports they are negative. Upon assessing resident, this RN notices resident to still be dizzy while lying in bed. States she is also diaphoretic. Pulse in 50's and irregular. Adonay, chain hooker aware and EKG ordered. Resident with history of A.Fib but has been in regular, controlled rhythm.
--- NOTE | 2018-03-22 15:26 | PCM.PN.RX ---
<Kyle Salas D - Last Filed: 03/22/18 15:26> Progress Note - Pharmacy Subjective: TCU Admission Objective: Allergies cephalexin monohydrate [From Keflex] Allergy (Verified 03/17/18 18:05) Hives ethchlorvynol [From Placidyl] Allergy (Verified 03/17/18 18:05) Unknown NSAIDS (Non-Steroidal Anti-Inflamma Allergy (Verified 03/17/18 18:05) Unknown Penicillins [PCN] Allergy (Verified 03/17/18 18:05) Unknown Sulfa (Sulfonamide Antibiotics) Allergy (Verified 03/17/18 18:05) Rash sulfamethoxazole [From Septra] Allergy (Verified 03/17/18 18:05) Unknown trimethoprim [From Septra] Allergy (Verified 03/17/18 18:05) Unknown Current Medications Generic Name Dose Route Start Last Admin Trade Name Freq PRN Reason Stop Dose Admin Acetaminophen 1,000 mg 03/21/18 20:43 03/22/18 11:53 Tylenol PO 1,000 mg Q6H PRN PRN Administration MILD PAIN (1-3/10) Atorvastatin Calcium 20 mg 03/21/18 22:00 03/21/18 21:12 Lipitor PO 20 mg QHS ERIK Administration Bisacodyl 10 mg 03/21/18 20:43 Dulcolax PO DAILY PRN Constipation Carvedilol 6.25 mg 03/21/18 18:00 03/22/18 08:05 Coreg PO 6.25 mg BIDCM ERIK Administration Doxycycline Monohydrate 100 mg 03/21/18 22:00 03/22/18 09:51 Doxycycline PO 03/31/18 23:59 100 mg BID@1000,2200 ERIK Administration Fentanyl 12 mcg 03/22/18 10:00 03/22/18 09:52 Duragesic Patch TRANSDERM. 12 mcg Q3D ERIK Administration Hydrochlorothiazide 25 mg 03/22/18 06:00 03/22/18 05:45 Hctz PO 25 mg DAILY ERIK Administration Levothyroxine Sodium 100 mcg 03/22/18 06:00 03/22/18 05:45 Synthroid PO 100 mcg DAILY ERIK Administration Multi-Ingredient Cream 1 applic 03/22/18 22:00 Eucerin TOPICAL 2200 [facility] Protocol Nutritional Formula 1 packet 03/22/18 08:00 03/22/18 08:05 [place] Flavor PO 1 packet BIDCM ERIK Administration Nutritional Formula (Lactose Free) 120 ml 03/21/18 17:00 03/22/18 11:51 Ensure Enlive PO 120 ml 4X/DAY ERIK Administration Nystatin 1 applic 03/22/18 06:00 03/22/18 05:50 Mycostatin Powder TOPICAL 1 applicatio 0600,2200 ERIK Administration Protocol Oxycodone HCl 5 mg 03/21/18 18:18 03/22/18 14:27 Oxyir PO 5 mg Q4H PRN Administration SEVERE PAIN (6-10/10) Polyethylene Glycol 17 gm 03/22/18 06:00 03/22/18 05:40 Miralax PO 17 gm DAILY ERIK Administration Polysaccharide Iron Complex 150 mg 03/23/18 08:00 Ferrex 150 PO DAILYCM [facility] Senna/Docusate Sodium 2 tablet 03/22/18 06:00 03/22/18 05:40 Senokot-S, Beth-Colace PO 2 tablet BID ERIK Administration Sertraline HCl 100 mg 03/22/18 06:00 03/22/18 05:45 Zoloft PO 100 mg DAILY ERIK Administration Tuberculin PPD 5 tu 03/29/18 10:00 Tubersol, Aplisol, Ppd ID 03/29/18 10:01 X1 ONE Problem List (Last Updated 03/21/18 @ 22:18 by Gage Dudley MD) Atrial fibrillation (Chronic) Hypothyroidism (Chronic) 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 (Chronic) Peptic ulcer disease (Chronic) Rheumatoid arthritis (Chronic) Gastrointestinal bleed (Chronic) Vitamin D deficiency (Chronic) Depression (Chronic) Vital Signs Temp Pulse Resp BP Pulse Ox 98.5 F 53 L 16 101/65 95 03/21/18 16:14 03/22/18 05:39 03/21/18 16:14 03/22/18 15:09 03/21/18 16:14 Oxygen Delivery Method Room Air Weight: 86.8 kg Body Mass Index (BMI) 32.8 Sodium 142 mmol/L (136-145) 03/22/18 05:25 Potassium 4.0 mmol/L (3.5-5.1) 03/22/18 05:25 Chloride 103 mmol/L (98-107) 03/22/18 05:25 Carbon Dioxide 30.0 mmol/L (21.0-32.0) 03/22/18 05:25 Anion Gap 9 (5-15) 03/22/18 05:25 BUN 23 mg/dL (7-18) H 03/22/18 05:25 Creatinine 0.98 mg/dL (0.55-1.02) 03/22/18 05:25 Est GFR (MDRD) Af Amer 71 mL/min (>60) 03/22/18 05:25 Est GFR (MDRD) Non-Af 59 mL/min (>60) L 03/22/18 05:25 BUN/Creatinine Ratio 23.5 RATIO (10-20) H 03/22/18 05:25 Glucose 99 mg/dL (74-106) 03/22/18 05:25 Assessment/Plan: 1) Pain APAP for mild pain, oxycodone for severe pain, fentanyl patch. Continue to monitor prn medication use, daily pain scores. 2) HTN/AFib HCTZ, carvedilol. Continue to monitor BP/HR. 3) Wound Infection Doxycycline BID. Continue to monitor s/s infection. 4) HLD Atorvastatin daily. Continue to monitor lipids. 5) Hypothyroidism Levothyroxine daily. Continue to monitor s/s hyper/hypothyroidism. Psychotropic Medications: 6) Depression Sertraline daily. Continue to monitor s/s depression. Unnecessary Medications: None Bowel Regimen: 7) Senna/s, PEG, prn bisacodyl. Continue to monitor prn medication use, for constipation/diarrhea. Date of Note:: 03/22/18 - Provider Comments Provider responsibility: Provider responsible to enter orders to implement recommendations <Mac Jaimes Chi - Last Filed: 03/22/18 17:31> Progress Note - Pharmacy Subjective: [] Objective: Allergies cephalexin monohydrate [From Keflex] Allergy (Verified 03/17/18 18:05) Hives ethchlorvynol [From Placidyl] Allergy (Verified 03/17/18 18:05) Unknown NSAIDS (Non-Steroidal Anti-Inflamma Allergy (Verified 03/17/18 18:05) Unknown Penicillins [PCN] Allergy (Verified 03/17/18 18:05) Unknown Sulfa (Sulfonamide Antibiotics) Allergy (Verified 03/17/18 18:05) Rash sulfamethoxazole [From Septra] Allergy (Verified 03/17/18 18:05) Unknown trimethoprim [From Septra] Allergy (Verified 03/17/18 18:05) Unknown Current Medications Generic Name Dose Route Start Last Admin Trade Name Freq PRN Reason Stop Dose Admin Acetaminophen 1,000 mg 03/21/18 20:43 03/22/18 11:53 Tylenol PO 1,000 mg Q6H PRN PRN Administration MILD PAIN (1-3/10) Atorvastatin Calcium 20 mg 03/21/18 22:00 03/21/18 21:12 Lipitor PO 20 mg QHS ERIK Administration Bisacodyl 10 mg 03/21/18 20:43 Dulcolax PO DAILY PRN Constipation Carvedilol 6.25 mg 03/21/18 18:00 03/22/18 16:38 Coreg PO 6.25 mg BIDCM ERIK Administration Doxycycline Monohydrate 100 mg 03/21/18 22:00 03/22/18 09:51 Doxycycline PO 03/31/18 23:59 100 mg BID@1000,2200 ERIK Administration Fentanyl 12 mcg 03/22/18 10:00 03/22/18 09:52 Duragesic Patch TRANSDERM. 12 mcg Q3D ERIK Administration Hydrochlorothiazide 25 mg 03/22/18 06:00 03/22/18 05:45 Hctz PO 25 mg DAILY ERIK Administration Levothyroxine Sodium 100 mcg 03/22/18 06:00 03/22/18 05:45 Synthroid PO 100 mcg DAILY ERIK Administration Multi-Ingredient Cream 1 applic 03/22/18 22:00 Eucerin TOPICAL [address] [facility] Protocol Nutritional Formula 1 packet 03/22/18 08:00 03/22/18 16:38 [place] Flavor PO 1 packet BIDCM ERIK Administration Nutritional Formula (Lactose Free) 120 ml 03/21/18 17:00 03/22/18 16:38 Ensure Enlive PO 120 ml 4X/DAY ERIK Administration Nystatin 1 applic 03/22/18 06:00 03/22/18 05:50 Mycostatin Powder TOPICAL 1 applicatio 0600,2200 [facility] Administration Protocol Oxycodone HCl 5 mg 03/21/18 18:18 03/22/18 14:27 Oxyir PO 5 mg Q4H PRN Administration SEVERE PAIN (6-10/10) Polyethylene Glycol 17 gm 03/22/18 06:00 03/22/18 05:40 Miralax PO 17 gm DAILY ERIK Administration Polysaccharide Iron Complex 150 mg 03/23/18 08:00 Ferrex 150 PO DAILYCM ERIK Senna/Docusate Sodium 2 tablet 03/22/18 06:00 03/22/18 16:38 Senokot-S, Beth-Colace PO 2 tablet BID ERIK Administration Sertraline HCl 100 mg 03/22/18 06:00 03/22/18 05:45 Zoloft PO 100 mg DAILY ERIK Administration Sodium Chloride 10 ml 03/22/18 15:29 03/22/18 15:58 IV 10 ml PRN PRN Administration iv flush Tuberculin PPD 5 tu 03/29/18 10:00 Tubersol, Aplisol, Ppd ID 03/29/18 10:01 X1 ONE Problem List (Last Updated 03/21/18 @ 22:18 by Gage Dudley MD) Atrial fibrillation (Chronic) Hypothyroidism (Chronic) 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 (Chronic) Peptic ulcer disease (Chronic) Rheumatoid arthritis (Chronic) Gastrointestinal bleed (Chronic) Vitamin D deficiency (Chronic) Depression (Chronic) Vital Signs Temp Pulse Resp BP Pulse Ox 98.5 F 53 L 16 101/65 95 03/21/18 16:14 03/22/18 05:39 03/21/18 16:14 03/22/18 15:09 03/21/18 16:14 Oxygen Delivery Method Room Air Weight: 86.8 kg Body Mass Index (BMI) 32.8 Sodium 142 mmol/L (136-145) 03/22/18 05:25 Potassium 4.0 mmol/L (3.5-5.1) 03/22/18 05:25 Chloride 103 mmol/L (98-107) 03/22/18 05:25 Carbon Dioxide 30.0 mmol/L (21.0-32.0) 03/22/18 05:25 Anion Gap 9 (5-15) 03/22/18 05:25 BUN 23 mg/dL (7-18) H 03/22/18 05:25 Creatinine 0.98 mg/dL (0.55-1.02) 03/22/18 05:25 Est GFR (MDRD) Af Amer 71 mL/min (>60) 03/22/18 05:25 Est GFR (MDRD) Non-Af 59 mL/min (>60) L 03/22/18 05:25 BUN/Creatinine Ratio 23.5 RATIO (10-20) H 03/22/18 05:25 Glucose 99 mg/dL (74-106) 03/22/18 05:25 Assessment/Plan: Psychotropic Medications: Unnecessary Medications: Bowel Regimen: - Provider Comments Provider responsibility: Provider responsible to enter orders to implement recommendations Provider Comments to Recommendations by Pharmacy: Agree
--- NOTE | 2018-03-22 15:32 | PHA.CONS_ITS ---
<Kyle Salas D - Last Filed: 03/22/18 15:26> Progress Note - Pharmacy Subjective: TCU Admission Objective: Allergies cephalexin monohydrate [From Keflex] Allergy (Verified 03/17/18 18:05) Hives ethchlorvynol [From Placidyl] Allergy (Verified 03/17/18 18:05) Unknown NSAIDS (Non-Steroidal Anti-Inflamma Allergy (Verified 03/17/18 18:05) Unknown Penicillins [PCN] Allergy (Verified 03/17/18 18:05) Unknown Sulfa (Sulfonamide Antibiotics) Allergy (Verified 03/17/18 18:05) Rash sulfamethoxazole [From Septra] Allergy (Verified 03/17/18 18:05) Unknown trimethoprim [From Septra] Allergy (Verified 03/17/18 18:05) Unknown Current Medications Generic Name Dose Route Start Last Admin Trade Name Freq PRN Reason Stop Dose Admin Acetaminophen 1,000 mg 03/21/18 20:43 03/22/18 11:53 Tylenol PO 1,000 mg Q6H PRN PRN Administration MILD PAIN (1-3/10) Atorvastatin Calcium 20 mg 03/21/18 22:00 03/21/18 21:12 Lipitor PO 20 mg QHS ERIK Administration Bisacodyl 10 mg 03/21/18 20:43 Dulcolax PO DAILY PRN Constipation Carvedilol 6.25 mg 03/21/18 18:00 03/22/18 08:05 Coreg PO 6.25 mg BIDCM ERIK Administration Doxycycline Monohydrate 100 mg 03/21/18 22:00 03/22/18 09:51 Doxycycline PO 03/31/18 23:59 100 mg BID@1000,2200 ERIK Administration Fentanyl 12 mcg 03/22/18 10:00 03/22/18 09:52 Duragesic Patch TRANSDERM. 12 mcg Q3D ERIK Administration Hydrochlorothiazide 25 mg 03/22/18 06:00 03/22/18 05:45 Hctz PO 25 mg DAILY ERIK Administration Levothyroxine Sodium 100 mcg 03/22/18 06:00 03/22/18 05:45 Synthroid PO 100 mcg DAILY ERIK Administration Multi-Ingredient Cream 1 applic 03/22/18 22:00 Eucerin TOPICAL 2200 [facility] Protocol Nutritional Formula 1 packet 03/22/18 08:00 03/22/18 08:05 [place] Flavor PO 1 packet BIDCM ERIK Administration Nutritional Formula (Lactose Free) 120 ml 03/21/18 17:00 03/22/18 11:51 Ensure Enlive PO 120 ml 4X/DAY ERIK Administration Nystatin 1 applic 03/22/18 06:00 03/22/18 05:50 Mycostatin Powder TOPICAL 1 applicatio 0600,2200 ERIK Administration Protocol Oxycodone HCl 5 mg 03/21/18 18:18 03/22/18 14:27 Oxyir PO 5 mg Q4H PRN Administration SEVERE PAIN (6-10/10) Polyethylene Glycol 17 gm 03/22/18 06:00 03/22/18 05:40 Miralax PO 17 gm DAILY ERIK Administration Polysaccharide Iron Complex 150 mg 03/23/18 08:00 Ferrex 150 PO DAILYCM [facility] Senna/Docusate Sodium 2 tablet 03/22/18 06:00 03/22/18 05:40 Senokot-S, Beth-Colace PO 2 tablet BID ERIK Administration Sertraline HCl 100 mg 03/22/18 06:00 03/22/18 05:45 Zoloft PO 100 mg DAILY ERIK Administration Tuberculin PPD 5 tu 03/29/18 10:00 Tubersol, Aplisol, Ppd ID 03/29/18 10:01 X1 ONE Problem List (Last Updated 03/21/18 @ 22:18 by Gage Dudley MD) Atrial fibrillation (Chronic) Hypothyroidism (Chronic) 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 (Chronic) Peptic ulcer disease (Chronic) Rheumatoid arthritis (Chronic) Gastrointestinal bleed (Chronic) Vitamin D deficiency (Chronic) Depression (Chronic) Vital Signs Temp Pulse Resp BP Pulse Ox 98.5 F 53 L 16 101/65 95 03/21/18 16:14 03/22/18 05:39 03/21/18 16:14 03/22/18 15:09 03/21/18 16:14 Oxygen Delivery Method Room Air Weight: 86.8 kg Body Mass Index (BMI) 32.8 Sodium 142 mmol/L (136-145) 03/22/18 05:25 Potassium 4.0 mmol/L (3.5-5.1) 03/22/18 05:25 Chloride 103 mmol/L (98-107) 03/22/18 05:25 Carbon Dioxide 30.0 mmol/L (21.0-32.0) 03/22/18 05:25 Anion Gap 9 (5-15) 03/22/18 05:25 BUN 23 mg/dL (7-18) H 03/22/18 05:25 Creatinine 0.98 mg/dL (0.55-1.02) 03/22/18 05:25 Est GFR (MDRD) Af Amer 71 mL/min (>60) 03/22/18 05:25 Est GFR (MDRD) Non-Af 59 mL/min (>60) L 03/22/18 05:25 BUN/Creatinine Ratio 23.5 RATIO (10-20) H 03/22/18 05:25 Glucose 99 mg/dL (74-106) 03/22/18 05:25 Assessment/Plan: 1) Pain APAP for mild pain, oxycodone for severe pain, fentanyl patch. Continue to monitor prn medication use, daily pain scores. 2) HTN/AFib HCTZ, carvedilol. Continue to monitor BP/HR. 3) Wound Infection Doxycycline BID. Continue to monitor s/s infection. 4) HLD Atorvastatin daily. Continue to monitor lipids. 5) Hypothyroidism Levothyroxine daily. Continue to monitor s/s hyper/hypothyroidism. Psychotropic Medications: 6) Depression Sertraline daily. Continue to monitor s/s depression. Unnecessary Medications: None Bowel Regimen: 7) Senna/s, PEG, prn bisacodyl. Continue to monitor prn medication use, for constipation/diarrhea. Date of Note:: 03/22/18 - Provider Comments Provider responsibility: Provider responsible to enter orders to implement recommendations <Mac Jaimes Chi - Last Filed: 03/22/18 17:31> Progress Note - Pharmacy Subjective: [] Objective: Allergies cephalexin monohydrate [From Keflex] Allergy (Verified 03/17/18 18:05) Hives ethchlorvynol [From Placidyl] Allergy (Verified 03/17/18 18:05) Unknown NSAIDS (Non-Steroidal Anti-Inflamma Allergy (Verified 03/17/18 18:05) Unknown Penicillins [PCN] Allergy (Verified 03/17/18 18:05) Unknown Sulfa (Sulfonamide Antibiotics) Allergy (Verified 03/17/18 18:05) Rash sulfamethoxazole [From Septra] Allergy (Verified 03/17/18 18:05) Unknown trimethoprim [From Septra] Allergy (Verified 03/17/18 18:05) Unknown Current Medications Generic Name Dose Route Start Last Admin Trade Name Freq PRN Reason Stop Dose Admin Acetaminophen 1,000 mg 03/21/18 20:43 03/22/18 11:53 Tylenol PO 1,000 mg Q6H PRN PRN Administration MILD PAIN (1-3/10) Atorvastatin Calcium 20 mg 03/21/18 22:00 03/21/18 21:12 Lipitor PO 20 mg QHS ERIK Administration Bisacodyl 10 mg 03/21/18 20:43 Dulcolax PO DAILY PRN Constipation Carvedilol 6.25 mg 03/21/18 18:00 03/22/18 16:38 Coreg PO 6.25 mg BIDCM ERIK Administration Doxycycline Monohydrate 100 mg 03/21/18 22:00 03/22/18 09:51 Doxycycline PO 03/31/18 23:59 100 mg BID@1000,2200 ERIK Administration Fentanyl 12 mcg 03/22/18 10:00 03/22/18 09:52 Duragesic Patch TRANSDERM. 12 mcg Q3D ERIK Administration Hydrochlorothiazide 25 mg 03/22/18 06:00 03/22/18 05:45 Hctz PO 25 mg DAILY ERIK Administration Levothyroxine Sodium 100 mcg 03/22/18 06:00 03/22/18 05:45 Synthroid PO 100 mcg DAILY ERIK Administration Multi-Ingredient Cream 1 applic 03/22/18 22:00 Eucerin TOPICAL 2200 [facility] Protocol Nutritional Formula 1 packet 03/22/18 08:00 03/22/18 16:38 [place] Flavor PO 1 packet BIDCM ERIK Administration Nutritional Formula (Lactose Free) 120 ml 03/21/18 17:00 03/22/18 16:38 Ensure Enlive PO 120 ml 4X/DAY ERIK Administration Nystatin 1 applic 03/22/18 06:00 03/22/18 05:50 Mycostatin Powder TOPICAL 1 applicatio 0600,2200 [facility] Administration Protocol Oxycodone HCl 5 mg 03/21/18 18:18 03/22/18 14:27 Oxyir PO 5 mg Q4H PRN Administration SEVERE PAIN (6-10/10) Polyethylene Glycol 17 gm 03/22/18 06:00 03/22/18 05:40 Miralax PO 17 gm DAILY ERIK Administration Polysaccharide Iron Complex 150 mg 03/23/18 08:00 Ferrex 150 PO DAILYCM ERIK Senna/Docusate Sodium 2 tablet 03/22/18 06:00 03/22/18 16:38 Senokot-S, Beth-Colace PO 2 tablet BID ERIK Administration Sertraline HCl 100 mg 03/22/18 06:00 03/22/18 05:45 Zoloft PO 100 mg DAILY ERIK Administration Sodium Chloride 10 ml 03/22/18 15:29 03/22/18 15:58 IV 10 ml PRN PRN Administration iv flush Tuberculin PPD 5 tu 03/29/18 10:00 Tubersol, Aplisol, Ppd ID 03/29/18 10:01 X1 ONE Problem List (Last Updated 03/21/18 @ 22:18 by Gage Dudley MD) Atrial fibrillation (Chronic) Hypothyroidism (Chronic) 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 (Chronic) Peptic ulcer disease (Chronic) Rheumatoid arthritis (Chronic) Gastrointestinal bleed (Chronic) Vitamin D deficiency (Chronic) Depression (Chronic) Vital Signs Temp Pulse Resp BP Pulse Ox 98.5 F 53 L 16 101/65 95 03/21/18 16:14 03/22/18 05:39 03/21/18 16:14 03/22/18 15:09 03/21/18 16:14 Oxygen Delivery Method Room Air Weight: 86.8 kg Body Mass Index (BMI) 32.8 Sodium 142 mmol/L (136-145) 03/22/18 05:25 Potassium 4.0 mmol/L (3.5-5.1) 03/22/18 05:25 Chloride 103 mmol/L (98-107) 03/22/18 05:25 Carbon Dioxide 30.0 mmol/L (21.0-32.0) 03/22/18 05:25 Anion Gap 9 (5-15) 03/22/18 05:25 BUN 23 mg/dL (7-18) H 03/22/18 05:25 Creatinine 0.98 mg/dL (0.55-1.02) 03/22/18 05:25 Est GFR (MDRD) Af Amer 71 mL/min (>60) 03/22/18 05:25 Est GFR (MDRD) Non-Af 59 mL/min (>60) L 03/22/18 05:25 BUN/Creatinine Ratio 23.5 RATIO (10-20) H 03/22/18 05:25 Glucose 99 mg/dL (74-106) 03/22/18 05:25 Assessment/Plan: Psychotropic Medications: Unnecessary Medications: Bowel Regimen: - Provider Comments Provider responsibility: Provider responsible to enter orders to implement recommendations Provider Comments to Recommendations by Pharmacy: Agree
[2018-03-22] MEDS: 0.9% Saline Lock 10 ML Syringe IV ×2 (15:58→20:15)
--- NOTE | 2018-03-22 16:10 | NURSING ---
Resident's last BM was 03/16/18. resident currently resting in bed. Daughter at bedside. This RN offerring Dulcolax at this time but family declining till her heart issues get figured out. Will update JAYDEN Urias.
--- NOTE | 2018-03-22 17:30 | NURSING ---
Addendum entered by Anai Mcgarry 03/22/18 17:58: Per family, resident states in the past that resident has had this episode of A.Fib 2-3 times in the past year and has had to be on an IV drip to convert her back to normal rythmn. Dr Jaimes also informed of this. Original Note: Dr jaimes updated that resident remains in A.fib despite extra coreg given. Resident symptomatic with dizziness and diaphoresis but this has improved with lying down in bed. family concerned because resident not currently on blood thinners. Orders given by Dr Jaimes to continue to monitor HR and symptoms and increase coreg daily. Also gives orders for Magnesium citrate for bowels.
--- NOTE | 2018-03-22 18:18 | NURSING ---
Resident and family asking if resident can get suppository before trying the magnesium citrate. Resident not able to move very fast right now due to pain and was wanting to try something more gentle.
[2018-03-22] MEDS: Bisacodyl 10 MG Suppository RECTAL (18:47)
--- NOTE | 2018-03-22 20:00 | NURSING ---
Addendum entered by Vonda Hdez 03/23/18 01:21: Family wanting to wait for the pt to get some rest tonight and then will consider SSE in the morning. Original Note: Addendum entered by Vonda Hdez 03/22/18 23:37: Pt had medium sized BM, but continues to strain while on the bsc and c/o still feeling constipated. New order for 1L bolus and SSE. Will continue to monitor. Original Note: Pt c/o being dizzy, SOB, sweating, and feels like her heart is irregular. BP 103/38, HR 62, temp 98.4, resp 20, and 96% on room air. Dr. Jaimes notified, and new order for 1L bolus and decrease coreg to 6.25mg BID. Pt and family updated on all. 2119-reaccessed vitals, BP 107/55, HR 71, and 93% on room air. Pt c/o feeling a little dizzy and abdominal cramping. Pt has not had a BM for awhile and encourage pt to take mag citrate at this time per orders.
[2018-03-22] MEDS: 0.9% Normal Saline 1,000 ML 999 ML IV ×2 (20:15→23:07)
[2018-03-22] MEDS: Magnesium Citrate 300 ML PO (21:27)
[2018-03-22] MEDS: Atorvastatin Calcium 20 MG Tablet PO (21:30)
[2018-03-23] MEDS: oxyCODONE 5 MG Tablet PO ×3 (02:19→18:37)
--- NOTE | 2018-03-23 06:31 | NURSING ---
SSE administered at this time. Pt tolerated well. Will continue to monitor.
[2018-03-23] MEDS: Polyethylene Glycol 3350 17 GM PACKET PO (06:38)
[2018-03-23] MEDS: Levothyroxine 100 MCG Tablet PO (06:40)
[2018-03-23] MEDS: hydroCHLOROthiazide 25 MG Tablet PO (06:40)
[2018-03-23] MEDS: Sertraline 100 MG Tablet PO (06:40)
[2018-03-23] MEDS: Senna/Docusate Sodium 1 Tablet 2 TABLET PO ×2 (06:41→16:50)
[2018-03-23] MEDS: Nystatin Powder 15gm Bottle 1 APPLIC TOPICAL ×2 (06:45→21:21)
[2018-03-23] MEDS: Carvedilol 6.25 MG Tablet PO ×2 (08:54→16:49)
[2018-03-23] MEDS: Iron Polysaccharide Complex 150 MG CAPSULE PO (08:55)
[2018-03-23 09:00] VITALS: BP 130/41; PULSE 63; O2SAT 96
[2018-03-23] MEDS: 0.9% Saline Lock 10 ML Syringe IV (09:01)
--- NOTE | 2018-03-23 09:06 | NURSING ---
duragesic intact to LT chest.
[2018-03-23 09:25] VITALS: PULSE 63; O2SAT 96
--- NOTE | 2018-03-23 09:36 | NURSING ---
Addendum entered by Gisele Neff 03/23/18 13:20: Daughter went up & got appt for today at 1400. Original Note: dr dumont notified of consult order and will see her here on unit. Message left with Dr Balderas's office per family and pt request for a same day appt for Afib. Awaiting return call.
[2018-03-23] MEDS: Doxycycline 100 MG CAPSULE PO ×2 (10:59→21:20)
[2018-03-23] MEDS: Acetaminophen 500 MG Tablet 1000 MG PO (13:17)
--- NOTE | 2018-03-23 15:46 | NURSING ---
Addendum entered by Gisele Neff 03/23/18 16:11: DR ELDRIDGE UPDATED ON VITALS, OK TO START AMIODARONE PER [facility], GOING TO KEEP HCTZ FOR NOW. AND OK FOR CTA CHEST. Original Note: KENZIE LOOMIS NP FROM [facility] CALLED WITH ORDER TO START AMIODARONE 200MG DAILY, CT SCAN TO CHECK FOR PE, POSSIBLE HOLD HCTZ FOR NOW. WILL RUN BY DR ELDRIDGE.
[2018-03-23 16:00] VITALS: BP 135/41; PULSE 65; RESP 16; TEMP 36.7; O2SAT 95
[2018-03-23] MEDS: Amiodarone 200 MG Tablet PO (16:49)
[2018-03-23] MEDS: Atorvastatin Calcium 20 MG Tablet PO (21:20)
[2018-03-23] MEDS: NYSTATIN 500,000 UNIT/5 ML UDC 500000 UNIT PO (21:28)
[2018-03-24] MEDS: oxyCODONE 5 MG Tablet PO ×5 (01:39→21:02)
[2018-03-24 06:09] VITALS: BP 156/66; PULSE 72
[2018-03-24] MEDS: Polyethylene Glycol 3350 17 GM PACKET PO (06:11)
[2018-03-24] MEDS: hydroCHLOROthiazide 25 MG Tablet PO (06:11)
[2018-03-24] MEDS: Senna/Docusate Sodium 1 Tablet 2 TABLET PO ×2 (06:11→17:37)
[2018-03-24] MEDS: Sertraline 100 MG Tablet PO (06:11)
[2018-03-24] MEDS: Amiodarone 200 MG Tablet PO (06:11)
[2018-03-24] MEDS: Levothyroxine 100 MCG Tablet PO (06:11)
[2018-03-24] MEDS: NYSTATIN 500,000 UNIT/5 ML UDC 500000 UNIT PO ×4 (06:12→21:03)
[2018-03-24] MEDS: Nystatin Powder 15gm Bottle 1 APPLIC TOPICAL ×3 (06:12→21:05)
[2018-03-24] MEDS: Acetaminophen 500 MG Tablet 1000 MG PO ×2 (06:27→21:02)
[2018-03-24] MEDS: Iron Polysaccharide Complex 150 MG CAPSULE PO (08:37)
[2018-03-24] MEDS: Carvedilol 6.25 MG Tablet PO ×2 (08:37→17:37)
[2018-03-24 08:41] VITALS: BP 116/44; PULSE 62
--- NOTE | 2018-03-24 09:54 | RAD_ITS ---
STUDY: X-RAY - LEFT ANKLE REASON FOR EXAM: Female, 77 years old. Left ankle pain. TECHNIQUE: 3 view(s) of the ankle. COMPARISON: None. FINDINGS: Normal visualized distal tibia and fibula. Normal medial and lateral malleoli. Normal tibiotalar articulation and ankle mortise. Small plantar spur. The visualized subtalar, talonavicular, calcaneocuboid and tarsal articulations are normal. The soft tissue structures are unremarkable. RAD/Ankle min 3 Views IMPRESSION: Small plantar spur. Electronically Signed: Sarthak Tucker MD at 13:35 EST Tel [phone], Service support ,
--- NOTE | 2018-03-24 09:55 | VDLE_ITS ---
Reason For Study: BLE PAIN RIGHT LEFT GSV is normal. GSV is normal. CFV is compressible, spontaneous, phasic, CFV is compressible, spontaneous, phasic, competent and demonstrates normal competent, and demonstrates normal augmentation. augmentation. FV is compressible, spontaneous, phasic, FV is compressible, spontaneous, phasic, competent and demonstrates normal competent and demonstrates normal augmentation. augmentation. POP V is compressible, spontaneous, phasic, POP V is compressible, spontaneous, phasic, competent and demonstrates normal competent and demonstrates normal augmentation. augmentation. T/P Trunk is compressible. T/P Trunk is compressible. PTV is compressible. PTV is compressible. RT PerV is compressible. LT PerV is compressible. Procedure Exam performed portable in patient room. The study was technically difficult. Due to wound with wound vac on right buttock. Unable to position patient for optimal RLE imaging. A preliminary report was called and/or faxed to TCU. Interpretation Summary Deep veins of the lower extremities are bilaterally patent and compressible segmentally. There is no evidence of deep vein thrombosis on either side. Valvular competence appears intact within the proximal deep venous systems bilaterally. The greater saphenous veins appear bilaterally patent and compressible segmentally. Ordering Physician: Mac Jaimes Referring Physician: Mauricio Barney Performed By: Brenda Vela, JOSE LUISCS, RVT
--- NOTE | 2018-03-24 09:56 | NURSING ---
PT RESTING IN BED, C/O PAIN LT ANKLE, NO REDNESS OR EDEMA. DAUGHTER CONCERNED D/T EVEN WITH LIGHT PALPATION VERY PAINFUL. HISTORY OF DVT'S. DR ELDRIDGE NOTIFIED, NEW ORDER FOR XRAY LT ANKLE & DOPPLER BLES.
--- NOTE | 2018-03-24 10:45 | CASEMGMT ---
Brief interview for mental status (BIMS) and resident mood interview (PHQ-9) completed on this day. BIMS score 15. PHQ-9 score 08/05
[2018-03-24] MEDS: Doxycycline 100 MG CAPSULE PO ×2 (11:03→21:03)
--- NOTE | 2018-03-24 11:19 | NURSING ---
Addendum entered by Gisele Neff 03/24/18 17:14: automotive service porter will be in around 7-8p for picc insertion. Original Note: Addendum entered by Gisele Neff 03/24/18 14:55: 1430 IV MORPHINE GIVEN AFTER SEVERAL UNSUCCESSFUL ATTEMPTS TO GET IV, DAIANA RN POWER CLEANER OPERATOR NOTIFIED AND GOT ONE RIGHT IN LT WRIST. DR ELDRIDGE UPDATED ON DIFFICULT STICK, FAMILY REPORTS SHE HAS ALWAYS BEEN DIFFICULT. NEW ORDER FOR PICC INSERTION. Original Note: Addendum entered by Gisele Neff 03/24/18 11:27: PT GOING TO THERAPY FIRST AND WILL THEN TRY FOR IV SITE AND ADMINISTER MORPHINE BEFORE WOUND VAC CHANGE. Original Note: WENT TO ADMINISTER IV MORPHINE VIA SALINE LOCK AND LEAKING AROUND CATHETER. DISCONTINUED IV. WILL TRY ANOTHER SITE FOR IV MORPHINE BEFORE WOUND VAC CHANGE.
--- NOTE | 2018-03-24 11:35 | CASEMGMT ---
Insurance Continued stay approved with next update due on 04/14/18. Auth# [id number] JUANITA Marquez, PUBLICITY DIRECTOR
[2018-03-24] MEDS: Morphine 4 MG/ML Syringe IV (14:28)
--- NOTE | 2018-03-24 15:26 | NURSING ---
wound photo: right buttock
[2018-03-24 15:38] VITALS: BP 119/48; PULSE 53; RESP 18; TEMP 36.3; O2SAT 91
--- NOTE | 2018-03-24 17:12 | NURSING ---
Addendum entered by Rosa Womack 03/25/18 00:21: Family refused SSE this evening. Daughter stated, She has had a long day and needs her sleep. Lets do it in the morning. Will readdress in AM. Original Note: family & pt waiting later for SSE tonight, feels she needs one d/t still feels constipated. pt sleeping at this time.
--- NOTE | 2018-03-24 17:32 | PN.SURG_ITS ---
Subjective: Postop #4 Patient known to me. She sustained a traumatic hematoma right gluteal area last week and went to surgery on 03/20/18 where she underwent surgical preparation right gluteal and proximal posterior thigh area with incision and drainage and evacuation and excisional debridement traumatic submuscular hematoma with extension to ischial bone and onto proximal posterior thigh (180 cm2). Today she is resting comfortably. - Physical Exam General: Alert, Oriented x3 HEENT: PERRLA, EOMI Oral: Moist Mucosa Neck: Supple Abdomen: Soft, Non-Distended Skin: Ulcer/ Wound - right gluteal wound is stable. VAC in place. Small amount of drainage in the canister. Neurological: Cranial nerves II-XII grossly intact Psych/Mental Status: Normal Affect, Appropriate Vital Signs Temp Pulse Resp BP Pulse Ox 97.3 F L 53 L 18 119/48 L 91 03/24/18 15:38 03/24/18 15:38 03/24/18 15:38 03/24/18 15:38 03/24/18 15:38 Oxygen Delivery Method Room Air Weight: 191 lb 5.78 oz Body Mass Index (BMI) 32.8 Intake and Output for Last 24 Hours 03/22/18 03/23/18 03/24/18 23:59 23:59 23:59 Intake Total 1040 / 1040 2803 / 2803 360 / 360 Balance 1040 / 1040 2803 / 2803 360 / 360 Medical Necessity - Tobacco Use Smoking Status: Never smoker Tobacco Use: Non-smoker Assessment/Plan All Active Problems (Last Updated 03/21/18 @ 22:18 by Gage Dudley MD) Open wound of right buttock with complication (Acute) Traumatic hematoma of buttock (Acute) Hematoma of right lower extremity (Acute) Compression fracture of L3 vertebra (Acute) Fall (Acute) Hematoma (Acute) Acute blood loss anemia (Acute) Atrial fibrillation with RVR (Resolved) Cellulitis and abscess of leg (Resolved) Influenza B (Resolved) Influenzal bronchiolitis (Resolved) 1. Traumatic submuscular hematoma right gluteal area with extension to ischial bone and onto proximal posterior thigh. 2. Fall from stairs. 3. intermodal customer service use of anticoagulation. 4. s/p surgical preparation right gluteal and proximal posterior thigh area with incision and drainage and evacuation and excisional debridement traumatic submuscular hematoma with extension to ischial bone and onto proximal posterior thigh (180 cm2). Right gluteal wound is stable. No active bleeding seen. VAC in place. To be changed three times per week at 150 mmHg continuous suction. Hgb stable at 9.6 after PRBC. Continue Doxycycline. Prealbumin was 25.2. Encourage nutritional supplementation with protein to help the healing process. Continue PT/OT for range of motion exercises and strengthening and ambulation. After discharge, followup at [facility].
--- NOTE | 2018-03-24 20:54 | RAD_ITS ---
STUDY: X-RAY CHEST REASON FOR EXAM: Female, 77 years old. Line placement TECHNIQUE: Single AP portable view of the chest. COMPARISON: Prior chest CT exam of March 23, 2018 FINDINGS: Right PICC is faintly visualized probably reaching the proximal superior vena cava but is not visualized thereafter over the density of the spine and ribs. Lung mcgarry remain expanded without major consolidation, focal atelectasis or a substantial pleural effusion. Normal size heart. Normal mediastinum and antoine. Normal visualized pulmonary arteries. There is atherosclerotic calcification of the aortic arch . Normal visualized ribs, clavicles, and shoulders. There is no demonstrated abnormality of the visualized soft tissue structures of the upper abdomen. RAD/CXR for Line Placement IMPRESSION: Right PICC is faintly visualized and probably reaches the proximal superior vena cava. Negative for sequelae of line placement. No acute findings or changes. Electronically Signed: Makenzie Page MD at 21:44 EST , Service support ,
[2018-03-24] MEDS: Atorvastatin Calcium 20 MG Tablet PO (21:03)
--- NOTE | 2018-03-24 22:25 | NURSING ---
Dr Jaimes aware of CXR to verify line placement. Per Dr Theodore smith for use. Will continue to monitor.
[2018-03-25] MEDS: oxyCODONE 5 MG Tablet PO ×4 (04:32→20:21)
[2018-03-25] MEDS: Levothyroxine 100 MCG Tablet PO (05:50)
[2018-03-25] MEDS: Polyethylene Glycol 3350 17 GM PACKET PO (05:50)
[2018-03-25] MEDS: Amiodarone 200 MG Tablet PO (05:50)
[2018-03-25] MEDS: Sertraline 100 MG Tablet PO (05:50)
[2018-03-25] MEDS: NYSTATIN 500,000 UNIT/5 ML UDC 500000 UNIT PO ×4 (05:50→21:21)
[2018-03-25] MEDS: hydroCHLOROthiazide 25 MG Tablet PO (05:50)
[2018-03-25] MEDS: Senna/Docusate Sodium 1 Tablet 2 TABLET PO ×2 (05:50→17:12)
[2018-03-25] MEDS: Nystatin Powder 15gm Bottle 1 APPLIC TOPICAL ×2 (05:51→21:23)
--- NOTE | 2018-03-25 07:27 | NURSING ---
Duragesic noted to left chest.
--- NOTE | 2018-03-25 07:28 | NURSING ---
SSE administered at 0450. Pt held for 5 minutes. Staff remained in room. Pt transferred to [facility] with positive results.
[2018-03-25] MEDS: Carvedilol 6.25 MG Tablet PO ×2 (08:08→17:13)
[2018-03-25] MEDS: Iron Polysaccharide Complex 150 MG CAPSULE PO (08:08)
[2018-03-25] MEDS: Acetaminophen 500 MG Tablet 1000 MG PO ×2 (09:21→17:17)
[2018-03-25] MEDS: Doxycycline 100 MG CAPSULE PO ×2 (09:21→21:20)
--- NOTE | 2018-03-25 11:18 | NURSING ---
DURAGESIC PATCH IN PLACE TO RIGHT UPPER CHEST.
[2018-03-25] MEDS: 0.9% Saline Lock 10 ML Syringe IV ×2 (11:20→20:23)
[2018-03-25 11:23] VITALS: PULSE 63; O2SAT 93
--- NOTE | 2018-03-25 13:31 | NURSING ---
R' C/O PAIN TO MID BACK. STATES SHE GETS ARTHRITIC PAIN. DR. ELDRIDGE NOTIFIED BY Elissa HALE N.O. FOR MEDROL DOSEPAK, INCREASED OXYIR.
[2018-03-25 15:57] VITALS: BP 121/67; PULSE 56; RESP 20; TEMP 35.7; O2SAT 92
[2018-03-25] MEDS: MethylPREDNISolone DosePak 4 MG BOX PO ×2 (17:12→21:23)
[2018-03-25] MEDS: Atorvastatin Calcium 20 MG Tablet PO (21:20)
[2018-03-26] MEDS: oxyCODONE 5 MG Tablet PO ×4 (06:06→23:44)
[2018-03-26] MEDS: Sertraline 100 MG Tablet PO (06:07)
[2018-03-26] MEDS: Senna/Docusate Sodium 1 Tablet 2 TABLET PO ×2 (06:07→17:51)
[2018-03-26] MEDS: Amiodarone 200 MG Tablet PO (06:08)
[2018-03-26] MEDS: Polyethylene Glycol 3350 17 GM PACKET PO (06:08)
[2018-03-26] MEDS: NYSTATIN 500,000 UNIT/5 ML UDC 500000 UNIT PO ×4 (06:08→20:52)
[2018-03-26] MEDS: hydroCHLOROthiazide 25 MG Tablet PO (06:08)
[2018-03-26] MEDS: Levothyroxine 100 MCG Tablet PO (06:08)
[2018-03-26] MEDS: Nystatin Powder 15gm Bottle 1 APPLIC TOPICAL ×2 (06:11→19:46)
[2018-03-26 06:12] VITALS: BP 134/69; PULSE 69
[2018-03-26] MEDS: Iron Polysaccharide Complex 150 MG CAPSULE PO (08:04)
[2018-03-26] MEDS: Carvedilol 6.25 MG Tablet PO ×2 (08:04→17:52)
[2018-03-26] MEDS: MethylPREDNISolone DosePak 4 MG BOX PO ×4 (08:05→20:51)
[2018-03-26] MEDS: Doxycycline 100 MG CAPSULE PO ×2 (09:27→20:52)
[2018-03-26 15:19] VITALS: BP 118/39; PULSE 66; RESP 18; TEMP 36.2; O2SAT 96
[2018-03-26] MEDS: 0.9% Saline Lock 10 ML Syringe IV (19:48)
[2018-03-26] MEDS: Atorvastatin Calcium 20 MG Tablet PO (20:52)
--- NOTE | 2018-03-26 23:46 | NURSING ---
Duragesic Patch noted on the right upper chest.
[2018-03-27] MEDS: oxyCODONE 5 MG Tablet PO ×4 (05:20→23:38)
[2018-03-27] MEDS: Amiodarone 200 MG Tablet PO (05:21)
[2018-03-27] MEDS: Polyethylene Glycol 3350 17 GM PACKET PO (05:21)
[2018-03-27] MEDS: hydroCHLOROthiazide 25 MG Tablet PO (05:21)
[2018-03-27] MEDS: Senna/Docusate Sodium 1 Tablet 2 TABLET PO ×2 (05:21→18:05)
[2018-03-27] MEDS: Levothyroxine 100 MCG Tablet PO (05:21)
[2018-03-27] MEDS: Sertraline 100 MG Tablet PO (05:21)
[2018-03-27] MEDS: NYSTATIN 500,000 UNIT/5 ML UDC 500000 UNIT PO ×4 (05:22→21:39)
[2018-03-27] MEDS: Nystatin Powder 15gm Bottle 1 APPLIC TOPICAL ×2 (05:25→21:42)
[2018-03-27 05:26] VITALS: BP 152/78; PULSE 64
[2018-03-27] MEDS: Carvedilol 6.25 MG Tablet PO ×2 (08:25→18:03)
[2018-03-27] MEDS: Iron Polysaccharide Complex 150 MG CAPSULE PO (08:26)
[2018-03-27] MEDS: MethylPREDNISolone DosePak 4 MG BOX PO ×4 (08:26→21:39)
[2018-03-27] MEDS: Doxycycline 100 MG CAPSULE PO ×2 (09:32→21:39)
--- NOTE | 2018-03-27 14:07 | NURSING ---
Duragesic patch intact to rt chest.
[2018-03-27] MEDS: Morphine 4 MG/ML Syringe IV (14:36)
[2018-03-27] MEDS: 0.9% Saline Lock 10 ML Syringe IV ×2 (14:36→21:00)
--- NOTE | 2018-03-27 15:42 | NURSING ---
wound photo: right buttock
[2018-03-27 16:00] VITALS: BP 117/52; PULSE 58; RESP 16; TEMP 36; O2SAT 92
[2018-03-27] MEDS: Atorvastatin Calcium 20 MG Tablet PO (21:39)
--- NOTE | 2018-03-28 00:46 | NURSING ---
Duragesic patch remains intact to Rt chest.
[2018-03-28] MEDS: hydroCHLOROthiazide 25 MG Tablet PO (05:49)
[2018-03-28] MEDS: Senna/Docusate Sodium 1 Tablet 2 TABLET PO ×2 (05:49→17:29)
[2018-03-28] MEDS: Amiodarone 200 MG Tablet PO (05:50)
[2018-03-28] MEDS: Sertraline 100 MG Tablet PO (05:50)
[2018-03-28] MEDS: Levothyroxine 100 MCG Tablet PO (05:50)
[2018-03-28] MEDS: Polyethylene Glycol 3350 17 GM PACKET PO (05:50)
[2018-03-28] MEDS: NYSTATIN 500,000 UNIT/5 ML UDC 500000 UNIT PO ×4 (05:50→21:12)
[2018-03-28] MEDS: oxyCODONE 5 MG Tablet PO ×4 (05:56→21:21)
[2018-03-28] MEDS: Nystatin Powder 15gm Bottle 1 APPLIC TOPICAL ×2 (05:57→21:13)
[2018-03-28] MEDS: MethylPREDNISolone DosePak 4 MG BOX PO ×3 (08:59→21:12)
[2018-03-28] MEDS: Iron Polysaccharide Complex 150 MG CAPSULE PO (08:59)
[2018-03-28] MEDS: Carvedilol 6.25 MG Tablet PO ×2 (08:59→17:29)
[2018-03-28] MEDS: Doxycycline 100 MG CAPSULE PO ×2 (09:00→21:12)
[2018-03-28] MEDS: Acetaminophen 500 MG Tablet 1000 MG PO (13:32)
[2018-03-28 15:34] VITALS: BP 120/58; PULSE 58; RESP 15; TEMP 36.6; O2SAT 95
[2018-03-28] MEDS: 0.9% Saline Lock 10 ML Syringe IV ×2 (17:33→21:35)
[2018-03-28] MEDS: Atorvastatin Calcium 20 MG Tablet PO (21:12)
[2018-03-29 06:01] LABS: Absolute Lymphocyte Count 1.52 X10^3/ul (0.83-4.51); Absolute Neutrophil Count 7.6 X10^3/uL (2.0-7.7); Basophil# 0.04 X10^3/uL; Basophil% 0.4 % (0-1); Eosinophil# 0.17 X10^3/uL; Eosinophils% 1.6 % (0-5); Hematocrit 36.8 % (37-47); Hemoglobin 11.5 g/dl (12.0-15.0); Lymphocyte # 1.52 X10^3/ul (4.0); Lymphocyte % 14.1 % (19-41); Mean Corp Hgb Conc 31.3 g/gl (32-36); Mean Corpuscular Hgb 31.8 pg (27.0-32.0); Mean Corpuscular Volume 101.7 fL (81-99); Mean Platelet Vol. 10.5 fl (6.2-12.0); Monocyte# 1.22 X10^3/uL; Monocyte% 11.3 % (0-10); Neutrophil # 7.62 X10^3/uL (2.7-7.7); Neutrophil % 70.8 % (47-70); Platelet Count 255 K/mm3 (150-450); RBC Distribution Width CV 18.3 % (11.6-14.6); RBC Distribution Width SD 62.9 fl (35.1-43.9); Red Blood Count 3.62 M/mm3 (4.2-5.4); White Blood Count 10.8 K/mm3 (4.4-11.0)
[2018-03-29 06:02] LABS: POSITIVE COUNT NO; POSITIVE DIFFERENTIAL NO; POSITIVE MORPHOLOGY NO
[2018-03-29] MEDS: oxyCODONE 5 MG Tablet PO ×4 (06:02→22:04)
[2018-03-29] MEDS: Amiodarone 200 MG Tablet PO (06:02)
[2018-03-29] MEDS: hydroCHLOROthiazide 25 MG Tablet PO (06:02)
[2018-03-29] MEDS: Levothyroxine 100 MCG Tablet PO (06:02)
[2018-03-29] MEDS: Senna/Docusate Sodium 1 Tablet 2 TABLET PO ×2 (06:02→17:46)
[2018-03-29] MEDS: Sertraline 100 MG Tablet PO (06:02)
[2018-03-29] MEDS: Polyethylene Glycol 3350 17 GM PACKET PO (06:02)
[2018-03-29] MEDS: NYSTATIN 500,000 UNIT/5 ML UDC 500000 UNIT PO ×4 (06:02→21:11)
[2018-03-29 06:03] LABS: Anion Gap 8 (5-15); BUN 41 mg/dL (7-18); BUN/Creat Ratio 43.2 RATIO (10-20); Calcium,Total 8.7 mg/dL (8.5-10.1); Chloride 103 mmol/L (98-107); Creatinine, Serum 0.95 mg/dL (0.55-1.02); EST Glomerular Filtration Rate 61 mL/min (>60); Est Glom Filt Rate - Afr Amer 73 mL/min (>60); Glucose 112 mg/dL (74-106); Potassium 4.4 mmol/L (3.5-5.1); Sodium Level 142 mmol/L (136-145)
[2018-03-29] MEDS: Nystatin Powder 15gm Bottle 1 APPLIC TOPICAL ×2 (06:08→21:10)
--- NOTE | 2018-03-29 07:28 | NURSING ---
Duragesic patch intact to Lt chest.
[2018-03-29] MEDS: MethylPREDNISolone DosePak 4 MG BOX PO ×2 (08:09→21:10)
[2018-03-29] MEDS: Iron Polysaccharide Complex 150 MG CAPSULE PO (08:09)
[2018-03-29] MEDS: Carvedilol 6.25 MG Tablet PO ×2 (08:10→17:46)
[2018-03-29] MEDS: Doxycycline 100 MG CAPSULE PO ×2 (10:46→21:11)
[2018-03-29] MEDS: Tuberculin,Purif.prot.deriv. 50 TU/ML Vial 5 ML ID (10:47)
--- NOTE | 2018-03-29 11:09 | CASEMGMT ---
Plan of care meeting held. Resident present as well as resident family. No discharge date set at this time. Resident to continue with further care and treatment on the Transitional Care Unit. Resident with an insurance update due on 04/14/17 and aware that continued stay approval is not guaranteed. Resident plans to discharge to home with family at discharge. Support given. Will continue to follow. CATHERINE MarquezW, SLASHER RUNNER
--- NOTE | 2018-03-29 12:37 | NURSING ---
Duragesic patch intact to lt chest.
--- NOTE | 2018-03-29 14:01 | MDS.RN ---
Information for the mds was obtained from review of the clinical record, interview of resident, staff, and direct observation of resident's care.
[2018-03-29] MEDS: Morphine 4 MG/ML Syringe IV (14:35)
[2018-03-29] MEDS: 0.9% Saline Lock 10 ML Syringe IV ×2 (14:38→21:14)
[2018-03-29 15:32] VITALS: BP 114/49; PULSE 58; RESP 18; TEMP 36.8; O2SAT 95
[2018-03-29] MEDS: Atorvastatin Calcium 20 MG Tablet PO (21:11)
--- NOTE | 2018-03-29 21:57 | NURSING ---
Duragesic noted to Left chest.
[2018-03-30] MEDS: Levothyroxine 100 MCG Tablet PO (05:38)
[2018-03-30] MEDS: Polyethylene Glycol 3350 17 GM PACKET PO (05:38)
[2018-03-30] MEDS: Nystatin Powder 15gm Bottle 1 APPLIC TOPICAL ×2 (05:38→19:42)
[2018-03-30] MEDS: hydroCHLOROthiazide 25 MG Tablet PO (05:38)
[2018-03-30] MEDS: NYSTATIN 500,000 UNIT/5 ML UDC 500000 UNIT PO ×4 (05:38→21:39)
[2018-03-30] MEDS: Senna/Docusate Sodium 1 Tablet 2 TABLET PO ×2 (05:38→16:24)
[2018-03-30] MEDS: Amiodarone 200 MG Tablet PO (05:38)
[2018-03-30] MEDS: Sertraline 100 MG Tablet PO (05:38)
[2018-03-30] MEDS: oxyCODONE 5 MG Tablet PO ×4 (05:39→21:39)
[2018-03-30] MEDS: Carvedilol 6.25 MG Tablet PO ×2 (08:30→16:24)
[2018-03-30] MEDS: Iron Polysaccharide Complex 150 MG CAPSULE PO (08:30)
[2018-03-30] MEDS: MethylPREDNISolone DosePak 4 MG BOX PO (08:30)
[2018-03-30] MEDS: Acetaminophen 500 MG Tablet 1000 MG PO ×2 (12:56→19:40)
[2018-03-30] MEDS: Doxycycline 100 MG CAPSULE PO ×2 (13:29→21:39)
[2018-03-30 15:34] VITALS: BP 142/75; PULSE 64; RESP 18; TEMP 36.9
[2018-03-30] MEDS: 0.9% Saline Lock 10 ML Syringe IV ×2 (17:28→19:44)
[2018-03-30] MEDS: Atorvastatin Calcium 20 MG Tablet PO (21:39)
--- NOTE | 2018-03-30 22:26 | NURSING ---
Duragesic patch noted to left chest
[2018-03-31] MEDS: oxyCODONE 5 MG Tablet PO ×2 (02:27→20:55)
[2018-03-31] MEDS: hydroCHLOROthiazide 25 MG Tablet PO (06:00)
[2018-03-31] MEDS: Sertraline 100 MG Tablet PO (06:00)
[2018-03-31] MEDS: Levothyroxine 100 MCG Tablet PO (06:00)
[2018-03-31] MEDS: Polyethylene Glycol 3350 17 GM PACKET PO (06:00)
[2018-03-31] MEDS: Amiodarone 200 MG Tablet PO (06:00)
[2018-03-31] MEDS: Nystatin Powder 15gm Bottle 1 APPLIC TOPICAL ×2 (06:01→20:57)
[2018-03-31] MEDS: Acetaminophen 500 MG Tablet 1000 MG PO (06:01)
[2018-03-31] MEDS: Senna/Docusate Sodium 1 Tablet 2 TABLET PO ×2 (06:01→16:06)
[2018-03-31] MEDS: Doxycycline 100 MG CAPSULE PO ×2 (08:37→20:55)
[2018-03-31] MEDS: Iron Polysaccharide Complex 150 MG CAPSULE PO (08:37)
[2018-03-31] MEDS: Carvedilol 6.25 MG Tablet PO ×2 (08:37→16:06)
--- NOTE | 2018-03-31 11:56 | CASEMGMT ---
Brief interview for mental status (BIMS) and resident mood interview (PHQ-9) completed on this day. BIMS score 1515. PHQ-9 score 07/05
[2018-03-31] MEDS: Morphine 4 MG/ML Syringe IV (13:51)
[2018-03-31] MEDS: 0.9% Saline Lock 10 ML Syringe IV (13:51)
[2018-03-31 15:29] VITALS: BP 136/64; PULSE 61; RESP 16; TEMP 36.9; O2SAT 95
--- NOTE | 2018-03-31 16:49 | NURSING ---
Duragesic patch noted to right chest
[2018-03-31] MEDS: Atorvastatin Calcium 20 MG Tablet PO (20:55)
--- NOTE | 2018-03-31 21:08 | NURSING ---
DURAGESIC PATCH PRESENT ON RT CHEST.
[2018-04-01] MEDS: Polyethylene Glycol 3350 17 GM PACKET PO (05:47)
[2018-04-01] MEDS: hydroCHLOROthiazide 25 MG Tablet PO (05:48)
[2018-04-01] MEDS: Sertraline 100 MG Tablet PO (05:48)
[2018-04-01] MEDS: Amiodarone 200 MG Tablet PO (05:48)
[2018-04-01] MEDS: Senna/Docusate Sodium 1 Tablet 2 TABLET PO ×2 (05:48→17:27)
[2018-04-01] MEDS: Levothyroxine 100 MCG Tablet PO (05:48)
[2018-04-01] MEDS: Nystatin Powder 15gm Bottle 1 APPLIC TOPICAL ×2 (05:49→21:11)
[2018-04-01] MEDS: Carvedilol 6.25 MG Tablet PO ×2 (08:23→17:27)
[2018-04-01] MEDS: Iron Polysaccharide Complex 150 MG CAPSULE PO (08:23)
[2018-04-01] MEDS: oxyCODONE 5 MG Tablet PO ×3 (08:27→17:30)
--- NOTE | 2018-04-01 12:04 | NURSING ---
Duragesic patch intact to rt chest
[2018-04-01 15:51] VITALS: BP 126/58; PULSE 60; RESP 18; TEMP 36.8; O2SAT 96
[2018-04-01 21:10] VITALS: PULSE 61; O2SAT 96
[2018-04-01] MEDS: Atorvastatin Calcium 20 MG Tablet PO (21:11)
[2018-04-01] MEDS: 0.9% Saline Lock 10 ML Syringe IV (21:13)
[2018-04-02] MEDS: oxyCODONE 5 MG Tablet PO ×4 (00:12→21:22)
[2018-04-02] MEDS: Senna/Docusate Sodium 1 Tablet 2 TABLET PO ×2 (05:23→17:23)
[2018-04-02] MEDS: Levothyroxine 100 MCG Tablet PO (05:23)
[2018-04-02] MEDS: Sertraline 100 MG Tablet PO (05:23)
[2018-04-02] MEDS: Amiodarone 200 MG Tablet PO (05:23)
[2018-04-02] MEDS: hydroCHLOROthiazide 25 MG Tablet PO (05:23)
[2018-04-02] MEDS: Polyethylene Glycol 3350 17 GM PACKET PO (05:24)
[2018-04-02] MEDS: Nystatin Powder 15gm Bottle 1 APPLIC TOPICAL ×2 (05:25→21:23)
[2018-04-02] MEDS: Acetaminophen 500 MG Tablet 1000 MG PO (05:29)
[2018-04-02] MEDS: Iron Polysaccharide Complex 150 MG CAPSULE PO (08:31)
[2018-04-02] MEDS: Carvedilol 6.25 MG Tablet PO ×2 (08:31→17:21)
[2018-04-02 10:00] VITALS: PULSE 64; RESP 18; O2SAT 94
[2018-04-02 15:12] VITALS: BP 112/54; PULSE 61; RESP 18; TEMP 36.8; O2SAT 96
[2018-04-02] MEDS: Atorvastatin Calcium 20 MG Tablet PO (21:22)
[2018-04-03] MEDS: oxyCODONE 5 MG Tablet PO ×3 (04:37→21:06)
[2018-04-03] MEDS: Sertraline 100 MG Tablet PO (04:42)
[2018-04-03] MEDS: Senna/Docusate Sodium 1 Tablet 2 TABLET PO ×2 (04:42→16:34)
[2018-04-03] MEDS: hydroCHLOROthiazide 25 MG Tablet PO (04:42)
[2018-04-03] MEDS: Polyethylene Glycol 3350 17 GM PACKET PO (04:43)
[2018-04-03] MEDS: Amiodarone 200 MG Tablet PO (04:43)
[2018-04-03] MEDS: Levothyroxine 100 MCG Tablet PO (04:43)
[2018-04-03] MEDS: Nystatin Powder 15gm Bottle 1 APPLIC TOPICAL ×2 (04:49→21:03)
[2018-04-03] MEDS: Carvedilol 6.25 MG Tablet PO ×2 (08:54→16:33)
[2018-04-03] MEDS: Iron Polysaccharide Complex 150 MG CAPSULE PO (08:54)
--- NOTE | 2018-04-03 10:19 | MDS.RN ---
Pain interview for jannette 04/04/18 completed.
[2018-04-03] MEDS: 0.9% Saline Lock 10 ML Syringe IV ×2 (11:02→13:07)
--- NOTE | 2018-04-03 11:04 | NURSING ---
Old uragesic patch removed from rt chest, wasted by flushing down toilet, witnessed by JAYDEN Jaquez, new patch applied to lt shoulder.
[2018-04-03] MEDS: Morphine 4 MG/ML Syringe IV (13:08)
--- NOTE | 2018-04-03 14:10 | NURSING ---
wound photo: right buttock
--- NOTE | 2018-04-03 14:59 | CHAPLAIN ---
Type of Pastoral Visit ___ Initial Visit _x__ Follow-up Visit ___ On-call Visit ___ General Patient Visit ___ Spiritual Assessment ___ Family Conference ___ Bereavement ___ Rapid Response ___ Code Blue ___ Other (describe below) Pastoral Care Referral From _x__ Patient ___ Family ___ Nurse ___ Physician ___ Destination Sign Repairer ___ Waste Picker ___ Other (describe below) Sacrament/Intervention _x__ Active listening ___ Anointing ___ Restorationist ___ Bereavement ___ Communion ___ Alva exploration ___ ___ Life review ___ Prayer ___ Reconciliation ___ Sacrament of Sick ___ Supportive presence ___ Wedding ___ Other (describe below) Pastoral Comments
[2018-04-03 16:00] VITALS: BP 133/80; PULSE 62; RESP 18; TEMP 36.9; O2SAT 94
[2018-04-03] MEDS: Atorvastatin Calcium 20 MG Tablet PO (21:02)
[2018-04-04] MEDS: oxyCODONE 5 MG Tablet PO ×3 (06:32→20:58)
[2018-04-04] MEDS: Polyethylene Glycol 3350 17 GM PACKET PO (06:33)
[2018-04-04] MEDS: Amiodarone 200 MG Tablet PO (06:33)
[2018-04-04] MEDS: Levothyroxine 100 MCG Tablet PO (06:33)
[2018-04-04] MEDS: Sertraline 100 MG Tablet PO (06:33)
[2018-04-04] MEDS: hydroCHLOROthiazide 25 MG Tablet PO (06:33)
[2018-04-04] MEDS: Senna/Docusate Sodium 1 Tablet 2 TABLET PO ×2 (06:33→17:12)
[2018-04-04] MEDS: Nystatin Powder 15gm Bottle 1 APPLIC TOPICAL ×2 (06:36→20:51)
[2018-04-04] MEDS: Iron Polysaccharide Complex 150 MG CAPSULE PO (08:23)
[2018-04-04] MEDS: Carvedilol 6.25 MG Tablet PO ×2 (08:24→17:12)
[2018-04-04 16:00] VITALS: BP 118/53; PULSE 67; RESP 20; TEMP 36.9; O2SAT 95
[2018-04-04] MEDS: Atorvastatin Calcium 20 MG Tablet PO (20:50)
[2018-04-04] MEDS: 0.9% Saline Lock 10 ML Syringe IV (20:50)
[2018-04-05] MEDS: hydroCHLOROthiazide 25 MG Tablet PO (05:36)
[2018-04-05] MEDS: Sertraline 100 MG Tablet PO (05:36)
[2018-04-05] MEDS: Levothyroxine 100 MCG Tablet PO (05:36)
[2018-04-05] MEDS: Amiodarone 200 MG Tablet PO (05:36)
[2018-04-05] MEDS: Senna/Docusate Sodium 1 Tablet 2 TABLET PO ×2 (05:36→17:34)
[2018-04-05] MEDS: Polyethylene Glycol 3350 17 GM PACKET PO (05:36)
[2018-04-05] MEDS: oxyCODONE 5 MG Tablet PO ×2 (05:37→20:56)
[2018-04-05] MEDS: Nystatin Powder 15gm Bottle 1 APPLIC TOPICAL ×2 (05:37→20:55)
[2018-04-05 05:57] LABS: Absolute Lymphocyte Count 1.39 X10^3/ul (0.83-4.51); Absolute Neutrophil Count 3.9 X10^3/uL (2.0-7.7); Basophil# 0.03 X10^3/uL; Basophil% 0.5 % (0-1); Eosinophil# 0.23 X10^3/uL; Eosinophils% 3.8 % (0-5); Hematocrit 36.8 % (37-47); Hemoglobin 11.6 g/dl (12.0-15.0); Lymphocyte # 1.39 X10^3/ul (4.0); Mean Corp Hgb Conc 31.5 g/gl (32-36); Mean Corpuscular Hgb 32.4 pg (27.0-32.0); Mean Corpuscular Volume 102.8 fL (81-99); Mean Platelet Vol. 10.3 fl (6.2-12.0); Monocyte# 0.49 X10^3/uL; Monocyte% 8.1 % (0-10); Neutrophil # 3.88 X10^3/uL (2.7-7.7); Neutrophil % 64.3 % (47-70); Platelet Count 191 K/mm3 (150-450); RBC Distribution Width CV 17.9 % (11.6-14.6); Red Blood Count 3.58 M/mm3 (4.2-5.4)
[2018-04-05 06:03] LABS: Anion Gap 6 (5-15); BUN 34 mg/dL (7-18); BUN/Creat Ratio 36.6 RATIO (10-20); Calcium,Total 8.3 mg/dL (8.5-10.1); Chloride 105 mmol/L (98-107); Creatinine, Serum 0.93 mg/dL (0.55-1.02); EST Glomerular Filtration Rate 62 mL/min (>60); Est Glom Filt Rate - Afr Amer 75 mL/min (>60); Estimated Creatinine Clearance 44.44 ml/min; Glucose 91 mg/dL (74-106); Potassium 3.7 mmol/L (3.5-5.1); Sodium Level 144 mmol/L (136-145)
[2018-04-05 06:04] LABS: POSITIVE COUNT NO; POSITIVE DIFFERENTIAL NO; POSITIVE MORPHOLOGY NO
[2018-04-05] MEDS: Carvedilol 6.25 MG Tablet PO ×2 (08:15→17:34)
[2018-04-05] MEDS: Iron Polysaccharide Complex 150 MG CAPSULE PO (08:15)
[2018-04-05 10:00] VITALS: RESP 18
[2018-04-05] MEDS: 0.9% Saline Lock 10 ML Syringe IV ×2 (13:32→20:55)
[2018-04-05] MEDS: Morphine 4 MG/ML Syringe IV (14:46)
[2018-04-05 15:29] VITALS: BP 118/57; PULSE 57; RESP 16; TEMP 36.8; O2SAT 96
[2018-04-05] MEDS: Atorvastatin Calcium 20 MG Tablet PO (20:55)
[2018-04-06] MEDS: Amiodarone 200 MG Tablet PO (05:54)
[2018-04-06] MEDS: Levothyroxine 100 MCG Tablet PO (05:54)
[2018-04-06] MEDS: Senna/Docusate Sodium 1 Tablet 2 TABLET PO ×2 (05:54→16:45)
[2018-04-06] MEDS: Polyethylene Glycol 3350 17 GM PACKET PO (05:54)
[2018-04-06] MEDS: hydroCHLOROthiazide 25 MG Tablet PO (05:54)
[2018-04-06] MEDS: Sertraline 100 MG Tablet PO (05:54)
[2018-04-06] MEDS: Nystatin Powder 15gm Bottle 1 APPLIC TOPICAL ×2 (05:58→20:01)
[2018-04-06] MEDS: oxyCODONE 5 MG Tablet PO ×3 (05:59→16:45)
--- NOTE | 2018-04-06 06:09 | NURSING ---
Duragesic patch noted to left shoulder
[2018-04-06] MEDS: Carvedilol 6.25 MG Tablet PO ×2 (07:51→16:45)
[2018-04-06] MEDS: Iron Polysaccharide Complex 150 MG CAPSULE PO (07:51)
[2018-04-06] MEDS: 0.9% Saline Lock 10 ML Syringe IV ×2 (09:41→19:55)
[2018-04-06 09:45] VITALS: PULSE 64; RESP 16; O2SAT 98
--- NOTE | 2018-04-06 10:44 | NURSING ---
old duragesic removed from lt arm and new applied to RT deltoid
[2018-04-06 16:00] VITALS: BP 124/52; PULSE 65; RESP 18; TEMP 36.9; O2SAT 96
[2018-04-06] MEDS: Atorvastatin Calcium 20 MG Tablet PO (19:54)
[2018-04-07] MEDS: Senna/Docusate Sodium 1 Tablet 2 TABLET PO ×2 (05:45→17:30)
[2018-04-07] MEDS: Amiodarone 200 MG Tablet PO (05:45)
[2018-04-07] MEDS: hydroCHLOROthiazide 25 MG Tablet PO (05:45)
[2018-04-07] MEDS: Levothyroxine 100 MCG Tablet PO (05:45)
[2018-04-07] MEDS: oxyCODONE 5 MG Tablet PO ×4 (05:45→21:35)
[2018-04-07] MEDS: Polyethylene Glycol 3350 17 GM PACKET PO (05:45)
[2018-04-07] MEDS: Sertraline 100 MG Tablet PO (05:47)
[2018-04-07] MEDS: Nystatin Powder 15gm Bottle 1 APPLIC TOPICAL ×2 (05:49→21:01)
--- NOTE | 2018-04-07 07:05 | NURSING ---
Duragesic patch intact to RT deltoid.
[2018-04-07] MEDS: Iron Polysaccharide Complex 150 MG CAPSULE PO (08:27)
[2018-04-07] MEDS: Carvedilol 6.25 MG Tablet PO ×2 (08:32→17:30)
--- NOTE | 2018-04-07 11:40 | NURSING ---
Duragesic patch intact to rt deltoid
[2018-04-07] MEDS: 0.9% Saline Lock 10 ML Syringe IV (13:48)
[2018-04-07] MEDS: Morphine 4 MG/ML Syringe IV (13:48)
[2018-04-07 15:30] VITALS: BP 124/48; PULSE 68; RESP 18; TEMP 36.6; O2SAT 97
[2018-04-07] MEDS: Atorvastatin Calcium 20 MG Tablet PO (20:59)
[2018-04-08] MEDS: Amiodarone 200 MG Tablet PO (05:06)
[2018-04-08] MEDS: Levothyroxine 100 MCG Tablet PO (05:06)
[2018-04-08] MEDS: Sertraline 100 MG Tablet PO (05:06)
[2018-04-08] MEDS: Polyethylene Glycol 3350 17 GM PACKET PO (05:06)
[2018-04-08] MEDS: Senna/Docusate Sodium 1 Tablet 2 TABLET PO ×2 (05:06→17:47)
[2018-04-08] MEDS: hydroCHLOROthiazide 25 MG Tablet PO (05:07)
[2018-04-08] MEDS: oxyCODONE 5 MG Tablet PO ×3 (05:10→20:58)
[2018-04-08] MEDS: Nystatin Powder 15gm Bottle 1 APPLIC TOPICAL ×2 (05:11→20:49)
[2018-04-08] MEDS: Iron Polysaccharide Complex 150 MG CAPSULE PO (08:00)
[2018-04-08] MEDS: Carvedilol 6.25 MG Tablet PO ×2 (08:00→17:48)
[2018-04-08 08:09] VITALS: PULSE 64; RESP 18; O2SAT 94
[2018-04-08] MEDS: 0.9% Saline Lock 10 ML Syringe IV (08:15)
--- NOTE | 2018-04-08 09:29 | NURSING ---
duragesic intact to rt deltoid.
[2018-04-08 15:20] VITALS: BP 107/56; PULSE 60; RESP 16; TEMP 36.4; O2SAT 98
[2018-04-08] MEDS: Atorvastatin Calcium 20 MG Tablet PO (20:50)
[2018-04-09] MEDS: Sertraline 100 MG Tablet PO (06:02)
[2018-04-09] MEDS: Nystatin Powder 15gm Bottle 1 APPLIC TOPICAL ×2 (06:02→21:46)
[2018-04-09] MEDS: Levothyroxine 100 MCG Tablet PO (06:02)
[2018-04-09] MEDS: Senna/Docusate Sodium 1 Tablet 2 TABLET PO ×2 (06:02→17:30)
[2018-04-09] MEDS: hydroCHLOROthiazide 25 MG Tablet PO (06:02)
[2018-04-09] MEDS: Polyethylene Glycol 3350 17 GM PACKET PO (06:02)
[2018-04-09] MEDS: Amiodarone 200 MG Tablet PO (06:02)
[2018-04-09] MEDS: oxyCODONE 5 MG Tablet PO ×3 (06:05→21:47)
[2018-04-09] MEDS: Iron Polysaccharide Complex 150 MG CAPSULE PO (07:51)
[2018-04-09] MEDS: Carvedilol 6.25 MG Tablet PO ×2 (07:51→17:30)
--- NOTE | 2018-04-09 10:11 | NURSING ---
new duragesic patch applied to lt deltoid and old removed from rt deltoid.
[2018-04-09] MEDS: 0.9% Saline Lock 10 ML Syringe IV (12:31)
[2018-04-09 15:24] VITALS: BP 114/59; PULSE 65; RESP 16; TEMP 36.8; O2SAT 96
[2018-04-09] MEDS: Atorvastatin Calcium 20 MG Tablet PO (21:46)
[2018-04-10] MEDS: Amiodarone 200 MG Tablet PO (07:01)
[2018-04-10] MEDS: hydroCHLOROthiazide 25 MG Tablet PO (07:01)
[2018-04-10] MEDS: Levothyroxine 100 MCG Tablet PO (07:01)
[2018-04-10] MEDS: Senna/Docusate Sodium 1 Tablet 2 TABLET PO ×2 (07:01→16:25)
[2018-04-10] MEDS: Sertraline 100 MG Tablet PO (07:01)
[2018-04-10] MEDS: Polyethylene Glycol 3350 17 GM PACKET PO (07:01)
[2018-04-10] MEDS: Nystatin Powder 15gm Bottle 1 APPLIC TOPICAL ×2 (07:01→21:52)
[2018-04-10] MEDS: oxyCODONE 5 MG Tablet PO (07:10)
--- NOTE | 2018-04-10 07:46 | NURSING ---
Duragesic noted to left shoulder
[2018-04-10] MEDS: Carvedilol 6.25 MG Tablet PO ×2 (08:09→16:25)
[2018-04-10] MEDS: Iron Polysaccharide Complex 150 MG CAPSULE PO (08:09)
[2018-04-10] MEDS: 0.9% Saline Lock 10 ML Syringe IV ×2 (14:30→21:45)
[2018-04-10] MEDS: Morphine 4 MG/ML Syringe IV (14:30)
[2018-04-10 15:06] VITALS: BP 113/69; PULSE 57; RESP 14; TEMP 36.2; O2SAT 91
[2018-04-10] MEDS: Atorvastatin Calcium 20 MG Tablet PO (21:45)
--- NOTE | 2018-04-11 05:07 | NURSING ---
Duragesic patch remains intact to Left Deltoid.
[2018-04-11] MEDS: hydroCHLOROthiazide 25 MG Tablet PO (05:08)
[2018-04-11] MEDS: Nystatin Powder 15gm Bottle 1 APPLIC TOPICAL ×2 (05:08→20:27)
[2018-04-11] MEDS: Amiodarone 200 MG Tablet PO (05:08)
[2018-04-11] MEDS: Senna/Docusate Sodium 1 Tablet 2 TABLET PO ×2 (05:08→17:34)
[2018-04-11] MEDS: Sertraline 100 MG Tablet PO (05:09)
[2018-04-11] MEDS: Polyethylene Glycol 3350 17 GM PACKET PO (05:09)
[2018-04-11] MEDS: Levothyroxine 100 MCG Tablet PO (05:09)
[2018-04-11] MEDS: Iron Polysaccharide Complex 150 MG CAPSULE PO (08:02)
[2018-04-11] MEDS: Carvedilol 6.25 MG Tablet PO ×2 (08:02→17:33)
[2018-04-11] MEDS: oxyCODONE 5 MG Tablet PO ×2 (08:04→17:32)
[2018-04-11] MEDS: 0.9% Saline Lock 10 ML Syringe IV (08:35)
[2018-04-11 16:00] VITALS: BP 112/65; PULSE 56; RESP 18; TEMP 36.8; O2SAT 95
[2018-04-11] MEDS: Atorvastatin Calcium 20 MG Tablet PO (20:26)
--- NOTE | 2018-04-11 23:02 | NURSING ---
Duragesic noted to left deltoid
[2018-04-12] MEDS: Levothyroxine 100 MCG Tablet PO (05:34)
[2018-04-12] MEDS: Amiodarone 200 MG Tablet PO (05:34)
[2018-04-12] MEDS: hydroCHLOROthiazide 25 MG Tablet PO (05:34)
[2018-04-12] MEDS: Senna/Docusate Sodium 1 Tablet 2 TABLET PO (05:34)
[2018-04-12] MEDS: Sertraline 100 MG Tablet PO (05:34)
[2018-04-12] MEDS: Polyethylene Glycol 3350 17 GM PACKET PO (05:34)
[2018-04-12] MEDS: Nystatin Powder 15gm Bottle 1 APPLIC TOPICAL ×2 (05:34→22:06)
[2018-04-12] MEDS: oxyCODONE 5 MG Tablet PO ×3 (06:39→22:02)
[2018-04-12] MEDS: Carvedilol 6.25 MG Tablet PO ×2 (09:06→17:31)
[2018-04-12] MEDS: Iron Polysaccharide Complex 150 MG CAPSULE PO (09:06)
--- NOTE | 2018-04-12 09:11 | NURSING ---
Old fentanyl patch removed from right deltoid, new patch applied to left deltoid.
--- NOTE | 2018-04-12 12:24 | NURSING ---
wound photo: right buttock
[2018-04-12 15:50] VITALS: BP 109/55; PULSE 59; RESP 16; TEMP 36.1; O2SAT 95
--- NOTE | 2018-04-12 16:48 | CASEMGMT ---
Social Work Spoke with resident and resident family in room. This case management social worker notifying resident and resident family of discharge date being set for 04/18/18. Resident and resident family agreeable to discharge date and plan for resident to discharge to home with spouse and then family for support as needed. This case management social worker communicating that half-way and physical therapy are recommending for resident to continue with services within the home. Resident is agreeable to recommendation and requesting for home health care to be set up through [facility] ([facility]). Resident reporting to have all needed durable medical equipment already set up within the home, outside of a shower chair and resident family is picking one up today. Resident family plans to provide transportation home for resident at time of discharge. Support given. [facility] This case management social worker making referral for physical therapy as well as half-way. Order to be completed. Proposed discharge date: 04/18/18 PLAN: Discharge to home with spouse and home health care. JUANITA Marquez, FRONT EDGER
--- NOTE | 2018-04-12 20:51 | DCINST_ITS ---
- Discharge Diagnoses Current Active Problems: Current Active and Chronic Problems (Last Updated 03/21/18 @ 22:18 by Gage Dudley MD) Atrial fibrillation (Chronic) Hypothyroidism (Chronic) 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 (Chronic) Peptic ulcer disease (Chronic) Rheumatoid arthritis (Chronic) Gastrointestinal bleed (Chronic) Vitamin D deficiency (Chronic) Depression (Chronic) You will use the following diet at home:: No restrictions, Regular Your food should be the consistency of: Regular Your liquids should be the consistency of: Regular/Thin Discharge Activity: Return to Normal Activity, May Shower, Use Walker Weight Bearing Status: Weight bearing as tolerated Call your doctor if you observe: Fever of 101 or Higher, Inability to urinate, Inability to have a bowel movement, Shortness of breath, Chest pain, Uncontrolled pain Allergies/Adverse Reactions: Allergies cephalexin monohydrate [From Keflex] Allergy (Verified 03/23/18 14:21) Hives ethchlorvynol [From Placidyl] Allergy (Verified 03/23/18 14:21) Unknown NSAIDS (Non-Steroidal Anti-Inflamma Allergy (Verified 03/23/18 14:21) Unknown Penicillins [PCN] Allergy (Verified 03/23/18 14:21) Unknown Sulfa (Sulfonamide Antibiotics) Allergy (Verified 03/23/18 14:21) Rash sulfamethoxazole [From Septra] Allergy (Verified 03/23/18 14:21) Unknown trimethoprim [From Septra] Allergy (Verified 03/23/18 14:21) Unknown Medications to take at Discharge Atorvastatin Calcium [Lipitor] 20 mg PO QHS 10/17/14 Ergocalciferol [Vitamin D] 5,000 unit PO QODAY 10/17/14 Sertraline HCl [Zoloft] 100 mg PO DAILY 10/17/14 Carvedilol 6.25 mg PO BID 03/17/18 Hydrochlorothiazide [Hctz] 25 mg PO QAM 03/17/18 amiodarone 200 mg tablet 200 mg PO DAILY #30 tab 03/23/18 levothyroxine 100 mcg tablet PO 90 Days #90 tab 03/23/18 Acetaminophen [Tylenol] 1,000 mg PO Q6H PRN PRN tablet 04/12/18 Amiodarone HCl [Cordarone] 200 mg PO DAILY #30 tablet 04/12/18 Bisacodyl [Dulcolax] 10 mg PO DAILY PRN #30 tablet 04/12/18 Iron Polysaccharide Complex [Ferrex 150] 150 mg PO DAILYCM #30 capsule 04/12/18 Levothyroxine [Synthroid] 100 mcg PO DAILY #30 tablet 04/12/18 Mineral Oil/Petrolatum,White [Eucerin] 1 applic TOPICAL 2200 jar 04/12/18 Nutritional Supplement [Rivera - ORANGE FLAVOR] 1 packet PO BIDCM #60 packet 04/12/18 Nystatin Powder [Mycostatin Powder] 1 applic TOPICAL 0600,2200 bottle 04/12/18 Oxycodone [Oxyir] 5 - 10 mg PO Q4H PRN 5 Days #30 tab 04/12/18 Polyethylene Glycol 3350 [Miralax] 17 gm PO DAILY #30 packet 04/12/18 Senna/Docusate Sodium [Senokot-S] 2 tablet PO BID #120 tablet 04/12/18 fentaNYL patch [Duragesic Patch] 12 mcg TRANSDERM. Q3D 30 Days #10 patch 04/12/18 The following prescriptions were given: Amiodarone HCl [Cordarone] 200 mg PO DAILY #30 tablet Bisacodyl [Dulcolax] 10 mg PO DAILY PRN #30 tablet PRN Reason: Constipation fentaNYL patch [Duragesic Patch] 12 mcg TRANSDERM. Q3D 30 Days #10 patch Iron Polysaccharide Complex [Ferrex 150] 150 mg PO DAILYCM #30 capsule Levothyroxine [Synthroid] 100 mcg PO DAILY #30 tablet Oxycodone [Oxyir] 5 - 10 mg PO Q4H PRN 5 Days #30 tab PRN Reason: Mod-Severe Pain (4-01/18) Polyethylene Glycol 3350 [Miralax] 17 gm PO DAILY #30 packet Nutritional Supplement [Rivera - ORANGE FLAVOR] 1 packet PO BIDCM #60 packet Senna/Docusate Sodium [Senokot-S] 2 tablet PO BID #120 tablet Primary Care Physician: Mauricio Barney MD [Primary Care Provider] - Please follow up with your Primary Care Physician in: 1 week. Test Results: Test results from this visit will be discussed in further detail at your follow- up appointment, if applicable. Please Follow Up With: Dr Dudley When: called on 03-22-18 Please Follow Up With: Cosmo Balderas MD When: 1 week. Proposed Discharge Date: 04/18/18
--- NOTE | 2018-04-12 20:51 | PCM.DC.SUM ---
Discharge Date and Diagnosis Date of Admission: 03/21/18 Date of Discharge: 04/18/18 - Secondary Discharge Diagnosis Chronic Problems (Last Updated 03/21/18 @ 22:18 by Gage Dudley MD) Atrial fibrillation (Chronic) Hypothyroidism (Chronic) 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 (Chronic) Peptic ulcer disease (Chronic) Rheumatoid arthritis (Chronic) Gastrointestinal bleed (Chronic) Vitamin D deficiency (Chronic) Depression (Chronic) terminologist current use of anticoagulant (Chronic) DVT (deep venous thrombosis) (Chronic) right lower leg Hyperlipidemia (Chronic) Paroxysmal atrial fibrillation (Chronic) Hospital Course and Treatment Imaging Results: 04/06/18 12:31 Diet: Regular Diet Food consistency:: Regular Liquid Consistency:: Regular/Thin Type of Dietary Supplement:: Rivera (Beadle) Is pt able to select menu?: Yes Clinical Impression(s) from Imaging Studies Ankle X-Ray 03/24/18 09:54 IMPRESSION: Small plantar spur. Electronically Signed: Sarthak Tucker MD at 13:35 EST Tel [phone], Service support , Chest X-Ray 03/24/18 20:54 IMPRESSION: Right PICC is faintly visualized and probably reaches the proximal superior vena cava. Negative for sequelae of line placement. No acute findings or changes. Electronically Signed: Makenzie Page MD at 21:44 EST , Service support , Consultations 03/22/18 07:01 Consult: Onc/Wound/canoe builder Routine Comment: Reason for Consult:: vac right buttock Operations: None, - - Surgical preparation right gluteal area with incision and drainage and evacuation and excisional debridement traumatic submuscular hematoma with extension to ischial bone (180 cm2). Procedures: None Summary of Care Provided: The patient is a 77 year old Female with below past medical history hospitalized for fall, right buttock hematoma requiring I+D with wound vac per Dr. Dudley 03/20/2018, complicated by L3 compression fracture, acute blood loss anemia requiring transfusion, encephalopathy secondary to opioid pain medications, admitted to TCU with debility, here for rehabilitation, strengthening, wound care, prior to discharge home with spouse. Discharge home with spouse, and Home Health Services. Restart warfarin as outpatient after seeing Dr. Mauricio Barney, wound no longer bleeding, healthy granulation tissue, safe to resume anticoagulation. - Physical Exam Vital Signs Temp Pulse Resp BP Pulse Ox 96.9 F L 59 L 16 109/55 L 95 04/12/18 15:50 04/12/18 15:50 04/12/18 15:50 04/12/18 15:50 04/12/18 15:50 Oxygen Delivery Method Room Air Weight: 84 kg Body Mass Index (BMI) 32.8 Intake and Output for Last 24 Hours 04/10/18 04/11/18 04/12/18 23:59 23:59 23:59 Intake Total 780 / 780 660 / 660 600 / 600 Balance 780 / 780 660 / 660 600 / 600 Discharge Diet: No Restrictions Discharge Activity: Return to Normal Activity, May Shower, Use Walker Weight Bearing Status: Weight bearing as tolerated Call your doctor if you observe: Fever of 101 or Higher, Inability to urinate, Inability to have a bowel movement, Shortness of breath, Chest pain, Uncontrolled pain Home Medications: Medications to take at Discharge Atorvastatin Calcium [Lipitor] 20 mg PO QHS 10/17/14 Ergocalciferol [Vitamin D] 5,000 unit PO QODAY 10/17/14 Sertraline HCl [Zoloft] 100 mg PO DAILY 10/17/14 Carvedilol 6.25 mg PO BID 03/17/18 Hydrochlorothiazide [Hctz] 25 mg PO QAM 03/17/18 amiodarone 200 mg tablet 200 mg PO DAILY #30 tab 03/23/18 levothyroxine 100 mcg tablet PO 90 Days #90 tab 03/23/18 Acetaminophen [Tylenol] 1,000 mg PO Q6H PRN PRN tablet 04/12/18 Amiodarone HCl [Cordarone] 200 mg PO DAILY #30 tablet 04/12/18 Bisacodyl [Dulcolax] 10 mg PO DAILY PRN #30 tablet 04/12/18 Iron Polysaccharide Complex [Ferrex 150] 150 mg PO DAILYCM #30 capsule 04/12/18 Levothyroxine [Synthroid] 100 mcg PO DAILY #30 tablet 04/12/18 Mineral Oil/Petrolatum,White [Eucerin] 1 applic TOPICAL 2200 jar 04/12/18 Nutritional Supplement [Rivera - ORANGE FLAVOR] 1 packet PO BIDCM #60 packet 04/12/18 Nystatin Powder [Mycostatin Powder] 1 applic TOPICAL 0600,2200 bottle 04/12/18 Oxycodone [Oxyir] 5 - 10 mg PO Q4H PRN 5 Days #30 tab 04/12/18 Polyethylene Glycol 3350 [Miralax] 17 gm PO DAILY #30 packet 04/12/18 Senna/Docusate Sodium [Senokot-S] 2 tablet PO BID #120 tablet 04/12/18 fentaNYL patch [Duragesic Patch] 12 mcg TRANSDERM. Q3D 30 Days #10 patch 04/12/18 Following Prescrptions Were Given to Patient: Amiodarone HCl [Cordarone] 200 mg PO DAILY #30 tablet Bisacodyl [Dulcolax] 10 mg PO DAILY PRN #30 tablet PRN Reason: Constipation fentaNYL patch [Duragesic Patch] 12 mcg TRANSDERM. Q3D 30 Days #10 patch Iron Polysaccharide Complex [Ferrex 150] 150 mg PO DAILYCM #30 capsule Levothyroxine [Synthroid] 100 mcg PO DAILY #30 tablet Oxycodone [Oxyir] 5 - 10 mg PO Q4H PRN 5 Days #30 tab PRN Reason: Mod-Severe Pain (-01/18) Polyethylene Glycol 3350 [Miralax] 17 gm PO DAILY #30 packet Nutritional Supplement [Rivera - ORANGE FLAVOR] 1 packet PO BIDCM #60 packet Senna/Docusate Sodium [Senokot-S] 2 tablet PO BID #120 tablet Primary Care Physician: Mauricio Barney MD [Primary Care Provider] - Please follow up with your Primary Care Physician in: 1 week. Please Follow Up With: Dr Dudley When: called on 03-22-18 Please Follow Up With: Cosmo Balderas MD When: 1 week. Disposition: Home with Home Health Minutes spent on discharge:: 35 Patient Condition:: Stable Medical Necessity - Tobacco Use Smoking Status: Never smoker Tobacco Use: Non-smoker Meaningful Use Info Meaningful Use Diagnoses (Choose all that apply): None applicable
--- NOTE | 2018-04-12 20:54 | DS.PCM_ITS ---
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 Electronically Signed: Sarthak Tucker MD at 13:35 EST Tel [phone], Service support , Chest X-Ray 03/24/18 20:54 IMPRESSION: Right PICC is faintly visualized and probably reaches the proximal superior vena cava. Negative for sequelae of line placement. No acute findings or changes. Electronically Signed: Makenzie Page MD at 21:44 EST , Service support , Consultations 03/22/18 07:01 Consult: Onc/Wound/city editor Routine Comment: Reason for Consult:: vac right buttock Operations: None, - - Surgical preparation right gluteal area with incision and drainage and evacuation and excisional debridement traumatic submuscular hematoma with extension to ischial bone (180 cm2). Procedures: None Summary of Care Provided: The patient is a 77 year old Female with below past medical history hospitalized for fall, right buttock hematoma requiring I+D with wound vac per Dr. Dudley 03/20/2018, complicated by L3 compression fracture, acute blood loss anemia requiring transfusion, encephalopathy secondary to opioid pain medications, admitted to TCU with debility, here for rehabilitation, strengthening, wound care, prior to discharge home with spouse. Discharge home with spouse, and Home Health Services. Restart warfarin as outpatient after seeing Dr. Mauricio Barney, wound no longer bleeding, healthy granulation tissue, safe to resume anticoagulation. - Physical Exam Vital Signs Temp Pulse Resp BP Pulse Ox 96.9 F L 59 L 16 109/55 L 95 04/12/18 15:50 04/12/18 15:50 04/12/18 15:50 04/12/18 15:50 04/12/18 15:50 Oxygen Delivery Method Room Air Weight: 84 kg Body Mass Index (BMI) 32.8 Intake and Output for Last 24 Hours 04/10/18 04/11/18 04/12/18 23:59 23:59 23:59 Intake Total 780 / 780 660 / 660 600 / 600 Balance 780 / 780 660 / 660 600 / 600 Discharge Diet: No Restrictions Discharge Activity: Return to Normal Activity, May Shower, Use Walker Weight Bearing Status: Weight bearing as tolerated Call your doctor if you observe: Fever of 101 or Higher, Inability to urinate, Inability to have a bowel movement, Shortness of breath, Chest pain, Uncontrolled pain Home Medications: Medications to take at Discharge Atorvastatin Calcium [Lipitor] 20 mg PO QHS 10/17/14 Ergocalciferol [Vitamin D] 5,000 unit PO QODAY 10/17/14 Sertraline HCl [Zoloft] 100 mg PO DAILY 10/17/14 Carvedilol 6.25 mg PO BID 03/17/18 Hydrochlorothiazide [Hctz] 25 mg PO QAM 03/17/18 amiodarone 200 mg tablet 200 mg PO DAILY #30 tab 03/23/18 levothyroxine 100 mcg tablet PO 90 Days #90 tab 03/23/18 Acetaminophen [Tylenol] 1,000 mg PO Q6H PRN PRN tablet 04/12/18 Amiodarone HCl [Cordarone] 200 mg PO DAILY #30 tablet 04/12/18 Bisacodyl [Dulcolax] 10 mg PO DAILY PRN #30 tablet 04/12/18 Iron Polysaccharide Complex [Ferrex 150] 150 mg PO DAILYCM #30 capsule 04/12/18 Levothyroxine [Synthroid] 100 mcg PO DAILY #30 tablet 04/12/18 Mineral Oil/Petrolatum,White [Eucerin] 1 applic TOPICAL 2200 jar 04/12/18 Nutritional Supplement [Rivera - ORANGE FLAVOR] 1 packet PO BIDCM #60 packet 04/12/18 Nystatin Powder [Mycostatin Powder] 1 applic TOPICAL 0600,2200 bottle 04/12/18 Oxycodone [Oxyir] 5 - 10 mg PO Q4H PRN 5 Days #30 tab 04/12/18 Polyethylene Glycol 3350 [Miralax] 17 gm PO DAILY #30 packet 04/12/18 Senna/Docusate Sodium [Senokot-S] 2 tablet PO BID #120 tablet 04/12/18 fentaNYL patch [Duragesic Patch] 12 mcg TRANSDERM. Q3D 30 Days #10 patch 04/12/18 Following Prescrptions Were Given to Patient: Amiodarone HCl [Cordarone] 200 mg PO DAILY #30 tablet Bisacodyl [Dulcolax] 10 mg PO DAILY PRN #30 tablet PRN Reason: Constipation fentaNYL patch [Duragesic Patch] 12 mcg TRANSDERM. Q3D 30 Days #10 patch Iron Polysaccharide Complex [Ferrex 150] 150 mg PO DAILYCM #30 capsule Levothyroxine [Synthroid] 100 mcg PO DAILY #30 tablet Oxycodone [Oxyir] 5 - 10 mg PO Q4H PRN 5 Days #30 tab PRN Reason: Mod-Severe Pain (-01/18) Polyethylene Glycol 3350 [Miralax] 17 gm PO DAILY #30 packet Nutritional Supplement [Rivera - [place] FLAVOR] 1 packet PO BIDCM #60 packet Senna/Docusate Sodium [Senokot-S] 2 tablet PO BID #120 tablet Primary Care Physician: Mauricio Barney MD [Primary Care Provider] - Please follow up with your Primary Care Physician in: 1 week. Please Follow Up With: Dr Dudley When: called on 03-22-18 Please Follow Up With: Cosmo Balderas MD When: 1 week. Disposition: Home with Home Health Minutes spent on discharge:: 35 Patient Condition:: Stable Medical Necessity - Tobacco Use Smoking Status: Never smoker Tobacco Use: Non-smoker Meaningful Use Info Meaningful Use Diagnoses (Choose all that apply): None applicable
--- NOTE | 2018-04-12 20:54 | HHNOTE_ITS ---
Home Health Note - Plan Overview of reason of hospitalization: The patient is a 77 year old Female with below past medical history hospitalized for fall, right buttock hematoma requiring I+D with wound vac per Dr. Dudley 03/20/2018, complicated by L3 compression fracture, acute blood loss anemia requiring transfusion, encephalopathy secondary to opioid pain medications, admitted to TCU with debility, here for rehabilitation, strengthening, wound care, prior to discharge home with spouse. Discharge home with spouse, and Home Health Services. Restart warfarin as outpatient after seeing Dr. Mauricio Barney, wound no longer bleeding, healthy granulation tissue, safe to resume anticoagulation. Problems: Patient was seen for (Last Updated 03/21/18 @ 22:18 by Gage Dudley MD) Atrial fibrillation (Chronic) Hypothyroidism (Chronic) 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 (Chronic) Peptic ulcer disease (Chronic) Rheumatoid arthritis (Chronic) Gastrointestinal bleed (Chronic) Vitamin D deficiency (Chronic) Depression (Chronic) Complete List of Medical Problems (Last Updated 03/21/18 @ 22:18 by Gage Dudley MD) Open wound of right buttock with complication (Acute) Traumatic hematoma of buttock (Acute) Hematoma of right lower extremity (Acute) Atrial fibrillation (Chronic) Hypothyroidism (Chronic) 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 (Chronic) Peptic ulcer disease (Chronic) Rheumatoid arthritis (Chronic) Gastrointestinal bleed (Chronic) Vitamin D deficiency (Chronic) Depression (Chronic) Compression fracture of L3 vertebra (Acute) Fall (Acute) Hematoma (Acute) Acute blood loss anemia (Acute) 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 (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) DVT (deep venous thrombosis) (Chronic) Hyperlipidemia (Chronic) Paroxysmal atrial fibrillation (Chronic) - Requirements and Reasons Disciplines Needed/Ordered: Snf, Physical Therapy Reason for Disciplines: Disease Specific Monitoring/education, Medication Management/Knowledge Deficit, Wound Care, Gait Training, Stair Training, Fall Pr evention, Home Safety/Equipment Instruction, Balance and/or Posture Training, Transfer Training Related To: Limited/Poor Endurance, Shortness of Breath with Activity, Physical Impairments, Unsteady Gait/Balance, Fall Risk Patient is unable to leave the home: Without Aid of Supportive Devices (crutches, cane, wheelchair, walker), Without the assistance of another person
[2018-04-12] MEDS: Atorvastatin Calcium 20 MG Tablet PO (22:03)
[2018-04-12] MEDS: 0.9% Saline Lock 10 ML Syringe IV (22:04)
[2018-04-13] MEDS: oxyCODONE 5 MG Tablet PO ×3 (03:29→20:46)
[2018-04-13] MEDS: Amiodarone 200 MG Tablet PO (06:08)
[2018-04-13] MEDS: hydroCHLOROthiazide 25 MG Tablet PO (06:09)
[2018-04-13] MEDS: Levothyroxine 100 MCG Tablet PO (06:09)
[2018-04-13] MEDS: Nystatin Powder 15gm Bottle 1 APPLIC TOPICAL ×2 (06:09→20:51)
[2018-04-13] MEDS: Senna/Docusate Sodium 1 Tablet 2 TABLET PO ×2 (06:09→17:22)
[2018-04-13] MEDS: Sertraline 100 MG Tablet PO (06:09)
[2018-04-13] MEDS: Iron Polysaccharide Complex 150 MG CAPSULE PO (08:52)
[2018-04-13] MEDS: Carvedilol 6.25 MG Tablet PO ×2 (08:52→17:22)
--- NOTE | 2018-04-13 08:55 | NURSING ---
Duragesic patch intact to left deltoid.
[2018-04-13] MEDS: 0.9% Saline Lock 10 ML Syringe IV ×2 (11:20→20:51)
[2018-04-13 16:00] VITALS: BP 107/61; PULSE 67; RESP 16; TEMP 36.9; O2SAT 95
[2018-04-13] MEDS: Atorvastatin Calcium 20 MG Tablet PO (20:47)
--- NOTE | 2018-04-13 21:00 | NURSING ---
Duragesic Patch is intact on Right Deltoid.
[2018-04-14] MEDS: Senna/Docusate Sodium 1 Tablet 2 TABLET PO (05:43)
[2018-04-14] MEDS: Amiodarone 200 MG Tablet PO (05:43)
[2018-04-14] MEDS: Sertraline 100 MG Tablet PO (05:43)
[2018-04-14] MEDS: Levothyroxine 100 MCG Tablet PO (05:43)
[2018-04-14] MEDS: oxyCODONE 5 MG Tablet PO ×3 (05:44→20:47)
[2018-04-14] MEDS: hydroCHLOROthiazide 25 MG Tablet PO (05:44)
[2018-04-14] MEDS: Nystatin Powder 15gm Bottle 1 APPLIC TOPICAL ×2 (05:47→20:45)
[2018-04-14] MEDS: Carvedilol 6.25 MG Tablet PO ×2 (08:00→17:19)
[2018-04-14] MEDS: Iron Polysaccharide Complex 150 MG CAPSULE PO (08:00)
[2018-04-14] MEDS: 0.9% Saline Lock 10 ML Syringe IV (11:08)
--- NOTE | 2018-04-14 14:09 | NURSING ---
pt requesting PICC line be dc'd since not using anymore, pt has been taking pain meds by mouth instead of IV during wound vac changes
[2018-04-14 15:23] VITALS: BP 112/54; PULSE 54; RESP 18; TEMP 36.7; O2SAT 94
[2018-04-14] MEDS: Atorvastatin Calcium 20 MG Tablet PO (20:45)
--- NOTE | 2018-04-14 22:41 | NURSING ---
Duragesic patch noted to right deltoid
[2018-04-15] MEDS: Sertraline 100 MG Tablet PO (05:42)
[2018-04-15] MEDS: Senna/Docusate Sodium 1 Tablet 2 TABLET PO ×2 (05:42→18:05)
[2018-04-15] MEDS: Amiodarone 200 MG Tablet PO (05:42)
[2018-04-15] MEDS: hydroCHLOROthiazide 25 MG Tablet PO (05:42)
[2018-04-15] MEDS: Levothyroxine 100 MCG Tablet PO (05:42)
[2018-04-15] MEDS: oxyCODONE 5 MG Tablet PO ×2 (05:43→18:06)
[2018-04-15] MEDS: Nystatin Powder 15gm Bottle 1 APPLIC TOPICAL ×2 (05:44→21:12)
[2018-04-15] MEDS: Carvedilol 6.25 MG Tablet PO ×2 (08:19→18:05)
[2018-04-15] MEDS: Iron Polysaccharide Complex 150 MG CAPSULE PO (08:20)
[2018-04-15 16:00] VITALS: BP 121/68; PULSE 57; RESP 18; TEMP 36.9; O2SAT 96
[2018-04-15 18:11] VITALS: PULSE 63
[2018-04-15] MEDS: Atorvastatin Calcium 20 MG Tablet PO (21:12)
[2018-04-16] MEDS: Amiodarone 200 MG Tablet PO (06:26)
[2018-04-16] MEDS: hydroCHLOROthiazide 25 MG Tablet PO (06:26)
[2018-04-16] MEDS: Sertraline 100 MG Tablet PO (06:27)
[2018-04-16] MEDS: Nystatin Powder 15gm Bottle 1 APPLIC TOPICAL ×2 (06:27→19:58)
[2018-04-16] MEDS: Levothyroxine 100 MCG Tablet PO (06:27)
[2018-04-16] MEDS: Senna/Docusate Sodium 1 Tablet 2 TABLET PO (06:27)
[2018-04-16] MEDS: oxyCODONE 5 MG Tablet PO ×2 (06:30→19:57)
[2018-04-16] MEDS: Iron Polysaccharide Complex 150 MG CAPSULE PO (08:15)
[2018-04-16] MEDS: Carvedilol 6.25 MG Tablet PO ×2 (08:15→17:24)
[2018-04-16 15:24] VITALS: BP 110/53; PULSE 65; RESP 20; TEMP 37; O2SAT 93
[2018-04-16 15:31] LABS: Bedside Glucose 128 mg/dL (70-110)
[2018-04-16 18:16] LABS: Absolute Lymphocyte Count 1.31 X10^3/ul (0.83-4.51); Absolute Neutrophil Count 5.3 X10^3/uL (2.0-7.7); Basophil# 0.02 X10^3/uL; Basophil% 0.3 % (0-1); Eosinophil# 0.25 X10^3/uL; Eosinophils% 3.3 % (0-5); Hematocrit 39.9 % (37-47); Hemoglobin 12.7 g/dl (12.0-15.0); Lymphocyte # 1.31 X10^3/ul (4.0); Lymphocyte % 17.1 % (19-41); Mean Corp Hgb Conc 31.8 g/gl (32-36); Mean Corpuscular Hgb 31.8 pg (27.0-32.0); Mean Platelet Vol. 9.8 fl (6.2-12.0); Monocyte# 0.72 X10^3/uL; Monocyte% 9.4 % (0-10); Neutrophil # 5.33 X10^3/uL (2.7-7.7); Neutrophil % 69.8 % (47-70); Platelet Count 215 K/mm3 (150-450); RBC Distribution Width CV 15.2 % (11.6-14.6); RBC Distribution Width SD 55.8 fl (35.1-43.9); Red Blood Count 3.99 M/mm3 (4.2-5.4); White Blood Count 7.6 K/mm3 (4.4-11.0)
[2018-04-16 18:17] LABS: POSITIVE COUNT NO; POSITIVE DIFFERENTIAL NO; POSITIVE MORPHOLOGY NO
[2018-04-16 18:33] LABS: Anion Gap 6 (5-15); BUN 31 mg/dL (7-18); Chloride 100 mmol/L (98-107); Creatinine, Serum 0.82 mg/dL (0.55-1.02); EST Glomerular Filtration Rate 72 mL/min (>60); Est Glom Filt Rate - Afr Amer 88 mL/min (>60); Glucose 135 mg/dL (74-106); Potassium 4.3 mmol/L (3.5-5.1); Sodium Level 137 mmol/L (136-145)
[2018-04-16] MEDS: Atorvastatin Calcium 20 MG Tablet PO (19:52)
[2018-04-17] MEDS: oxyCODONE 5 MG Tablet PO ×2 (06:19→12:05)
[2018-04-17] MEDS: Amiodarone 200 MG Tablet PO (06:20)
[2018-04-17] MEDS: Levothyroxine 100 MCG Tablet PO (06:20)
[2018-04-17] MEDS: hydroCHLOROthiazide 25 MG Tablet PO (06:20)
[2018-04-17] MEDS: Sertraline 100 MG Tablet PO (06:20)
[2018-04-17] MEDS: Senna/Docusate Sodium 1 Tablet 2 TABLET PO (06:20)
[2018-04-17] MEDS: Nystatin Powder 15gm Bottle 1 APPLIC TOPICAL ×2 (06:22→20:36)
--- NOTE | 2018-04-17 08:06 | MDS.RN ---
Information for the mds was obtained from review of the clinical record, interview of resident, staff ,and direct observation of resident's care.
[2018-04-17] MEDS: Iron Polysaccharide Complex 150 MG CAPSULE PO (08:28)
[2018-04-17] MEDS: Carvedilol 6.25 MG Tablet PO ×2 (08:28→17:45)
--- NOTE | 2018-04-17 14:21 | NURSING ---
wound photo: right buttock
--- NOTE | 2018-04-17 15:25 | CASEMGMT ---
Social Work Spoke with resident and resident family in room. Resident now reporting to need a walker at time of discharge. Resident does not have a preference of [employer], [employer] to be utilize. Resident identifying no further needs at this time. Support given. Proposed discharge date: 04/18/18 PLAN: Discharge to home with spouse and home health care. CATHERINE MarquezW, PEDIGREE TRACER
[2018-04-17 15:46] VITALS: BP 111/59; PULSE 59; RESP 18; TEMP 36.6; O2SAT 94
--- NOTE | 2018-04-17 16:02 | CASEMGMT ---
Brief interview for mental status (BIMS) and resident mood interview (PHQ-9) completed on this day. BIMS score 1515. PHQ-9 score 07/05
--- NOTE | 2018-04-17 18:04 | RAD_ITS ---
STUDY: X-RAY CHEST REASON FOR EXAM: Female, 77 years old. Cough TECHNIQUE: PA and lateral views of the chest. COMPARISON: March 24, [address] dated March 23, 2018 FINDINGS: There is no new focal consolidation. The lungs are hyperinflated. Normal size heart. Normal mediastinum and antoine. Normal visualized pulmonary arteries. Normal visualized aortic arch and descending thoracic aorta. There is demineralization of the osseous structures. There is a stable superior endplate deformity of a mid thoracic vertebra. Normal visualized ribs, clavicles, and shoulders. There is no demonstrated abnormality of the visualized soft tissue structures of the upper abdomen. RAD/Chest PA and Lateral IMPRESSION: Hyperinflated lungs may reflect underlying COPD. Electronically Signed: Emelyn Talamantes MD at 19:12 EST Tel , Service support ,
--- NOTE | 2018-04-17 18:07 | NURSING ---
Pt has c/o feeling shaky with intermittent ABD pain and nausea. Fine crackles to LLL, bowel sounds active, afebrile. Dr. Jaimes updated, NO for CXR, KUB, straight cath UA C&S and stool guiac.
--- NOTE | 2018-04-17 18:30 | RAD_ITS ---
STUDY: X-RAY - ABDOMEN/PELVIS REASON FOR EXAM: Female, 77 years old. Abdominal pain. TECHNIQUE: 3 frontal images of the abdomen. COMPARISON: None. FINDINGS: Normal visualized lung bases. There is an unremarkable bowel gas pattern. There is no demonstrated free abdominal air. Normal soft tissue structures. Normal visualized osseous structures. RAD/Abd Inc Decub and/or Erect IMPRESSION: Nonspecific bowel gas pattern. Electronically Signed: Emelyn Talamantes MD at 18:57 EST Tel , Service support ,
--- NOTE | 2018-04-17 20:25 | NURSING ---
Dr Jaimes stool specimen not obtained for OB. Dr Jaimes requesting SSE be given now d/t hgb improvement while on TCU.
[2018-04-17] MEDS: Atorvastatin Calcium 20 MG Tablet PO (20:36)
--- NOTE | 2018-04-17 21:40 | NURSING ---
Addendum entered by Rosa Womack 04/17/18 21:53: Large results Original Note: SSE administered, pt held approx 5 minutes. Pt tolerated well. Will continue to monitor and asses
[2018-04-18] MEDS: Levothyroxine 100 MCG Tablet PO (05:39)
[2018-04-18] MEDS: Nystatin Powder 15gm Bottle 1 APPLIC TOPICAL (05:39)
[2018-04-18] MEDS: hydroCHLOROthiazide 25 MG Tablet PO (05:39)
[2018-04-18] MEDS: Amiodarone 200 MG Tablet PO (05:39)
[2018-04-18] MEDS: Sertraline 100 MG Tablet PO (05:39)
[2018-04-18] MEDS: Senna/Docusate Sodium 1 Tablet 2 TABLET PO (05:40)
[2018-04-18] MEDS: Polyethylene Glycol 3350 17 GM PACKET PO (05:40)
--- NOTE | 2018-04-18 05:58 | NURSING ---
Duragesic noted to left chest
[2018-04-18 07:13] LABS: Bacteria 0 SEEN /hpf (None Seen); Mucous, Urine 0 SEEN /hpf (<or=2+); Red Blood Cells-Urine 0 SEEN /hpf (0-5)
[2018-04-18 07:14] LABS: Color, Urine Yellow (Yellow); Glucose, Dipstick Normal (Normal); Ketone-Dipstick Negative (Negative); Leukocyte Esterase-Dipstick 500 /ul (Negative); Nitrite-Dipstick Negative (Negative); Occult Blood-Urine Negative /ul (Negative); Protein-Dipstick Negative (Negative); Urine Bilirubin Dipstick Negative (Negative); Urine Clarity Clear (Clear); Urine Urobilinogen Normal (Normal)
[2018-04-18 07:20] LABS: White Blood Cells 5-10 SEEN /hpf (0-5)
[2018-04-18 07:21] LABS: Squamous Epithelial Cells - UA 0-5 SEEN /hpf (5-10)
[2018-04-18] MEDS: Iron Polysaccharide Complex 150 MG CAPSULE PO (07:53)
[2018-04-18] MEDS: Carvedilol 6.25 MG Tablet PO (07:53)
--- NOTE | 2018-04-18 08:26 | NURSING ---
Pt being discharged today. pt was switched over to the home VAC. Good seal noted at 150mmHg low continuous suction. reviewed alarms, etc. with patient. aware [facility] [address] Dudley.
[2018-04-18] MEDS: oxyCODONE 5 MG Tablet PO (08:52)
[2018-04-18 08:55] VITALS: BP 106/70; PULSE 66; RESP 18; TEMP 37; O2SAT 94
--- NOTE | 2018-04-18 08:57 | NURSING ---
new duragesic applied to RT deltoid area.
[2018-04-18] MEDS: Nitrofurantoin Macrocrystals 100 MG Capsule PO (09:14)
--- NOTE | 2018-04-18 16:16 | CASEMGMT ---
Insurance Notified insurance of resident discharge to home with spouse and home health care on 04/18/18. Auth#[id number] JUANITA Marquez, TURF KEEPER
== END 2018-04-18 11:00 | disposition home health service (06) | DRG 948 ==
PROVIDERS: Admitting Provider Family Medicine Geriatric Medicine; Family Provider Family Medicine; PCP Family Medicine; Referring Provider Family Medicine Geriatric Medicine; Visit Provider Family Medicine Geriatric Medicine
DX: R53.81 Other malaise (principal); D62 Acute posthemorrhagic anemia; E78.5 Hyperlipidemia, unspecified; S32.039D Unspecified fracture of third lumbar vertebra, subsequent encounter for fracture with routine healing; S30.0XXD Contusion of lower back and pelvis, subsequent encounter; W10.9XXD Fall (on) (from) unspecified stairs and steps, subsequent encounter; E03.9 Hypothyroidism, unspecified; I10 Essential (primary) hypertension; F32.9 Major depressive disorder, single episode, unspecified; M06.9 Rheumatoid arthritis, unspecified; E55.9 Vitamin D deficiency, unspecified; Z87.11 Personal history of peptic ulcer disease; Z86.718 Personal history of other venous thrombosis and embolism; I48.0 Paroxysmal atrial fibrillation; F41.9 Anxiety disorder, unspecified
CPT/HCPCS: 36415; 36569; 71045; 71046; 73610; 74019; 80048; 81001; 82962; 85025; 87086; 87088; 93005; 93970; 97110; 97116; 97163; 97166; 97530; 97535; 97802; J7030; A4216

== ENCOUNTER → 2018-03-23 16:42 | Outpatient (CLI) | payer MEDICARE, SELFPAY ==
[2018-03-23 14:13] VITALS: BMI 32.8
--- NOTE | 2018-03-23 16:45 | CT_ITS ---
STUDY: CTA CHEST REASON FOR EXAM: Female, 77 years old. Shortness of breath with history of DVT. Currently not on anticoagulant therapy. History of atrial fibrillation and skin cancer. RADIATION DOSAGE (If Supplied By Facility): CTDIvol = ( 14.12 ) mGy, DLP = ( 523.58 ) mGycm TECHNIQUE: The examination was performed with the intravenous administration of 100 ml of Isovue 370 contrast material. Post-processing of the angiographic images was performed, with multiplanar reformation and 3D reconstruction. Individualized dose optimization techniques were used for this CT. COMPARISON: None. FINDINGS: Normal enhancement of the main pulmonary artery and right and left pulmonary arteries. Normal enhancement of the bilateral peripheral pulmonary arteries. There is no demonstrated pulmonary embolism. There is atherosclerotic calcification of the aortic arch with tortuosity. There is no demonstrated aortic dissection. Normal heart and pericardium. Normal mediastinum. Normal hilar regions. Normal visualized trachea and bronchi. The lungs are well expanded. Negative for major consolidation. Focal atelectasis or chronic changes at the base of the lingula. Negative for pleural effusion. Focal edema or contusion of the left abdominal wall. Recent trauma? Degenerative changes of the thoracic spine with increased kyphosis. Negative for fracture deformity. CT/CTA Chest W/WO Contrast IMPRESSION: Negative for pulmonary embolus. Atherosclerotic changes of the thoracic aorta without aneurysm or dissection. Negative for coronary calcifications. Negative for pericardial effusion. Focal atelectasis or chronic retraction of the base of the lingula. Otherwise negative for major consolidation or pleural effusion. Focal mass fluid accumulation/stranding of the subcutaneous layer of the upper left abdominal wall. Recent hematoma? Anasarca? No other acute findings in the upper abdomen. Degenerative changes of the spine. Negative for fracture. Electronically Signed: Makenzie Page MD at 17:43 EST , Service support ,
--- OUTSIDE RECORDS SUMMARY | 2018-05-09 14:17 | XMS RPT_ITS ---
:1940 Author Organization [place] Support Name Relationship Address Phone GILMOREMORTEZA BENAVIDEZ Unavailable [address] + [place] [address] R Unavailable Unavailable Unavailable LUCI RODRÍGUEZ Unavailable [address] + [place] [address] MORTEZA GILMORE Unavailable [address] + [place] [address] R Unavailable Unavailable Unavailable LUCI RODRÍGUEZ Unavailable [address] + [place] [address] MORTEZA GILMORE Unavailable [address] + [place] [address] R Unavailable Unavailable Unavailable LUCI RODRÍGUEZ Unavailable [address] + [place] [address] MORTEZA GILMORE Unavailable [address] + [place] [address] R Unavailable Unavailable Unavailable LUCI RODRÍGUEZ Unavailable [address] + [place] [address] MORTEZA GILMORE Unavailable [address] + [place] [address] R Unavailable Unavailable Unavailable LUCI RODRÍGUEZ Unavailable [address] + [place] [address] MORTEZA GILMORE Unavailable [address] + [place] [address] R Unavailable Unavailable Unavailable LUCI RODRÍGUEZ Unavailable [address] + [place] [address] MORTEZA GILMORE Unavailable [address] + [facility] [address] R Unavailable Unavailable Unavailable LUCI RODRÍGUEZ Unavailable [address] + [place] [address] MORTEZA GILMORE Unavailable [address] + [place] [address] R Unavailable Unavailable Unavailable LUCI RODRÍGUEZ Unavailable [address] + [place] [address] WILNER GILMORETER Unavailable [address] + [place] [address] R Unavailable Unavailable Unavailable ULCI RODRÍGUEZ Unavailable [address] + [place] [address] WILNER GILMORETER Unavailable [address] + [place] [address] R Unavailable Unavailable Unavailable LUCI RODRÍGUEZ Unavailable [address] + [place] [address] WILNER GILMORETER Unavailable [address] + [place] [address] R Unavailable Unavailable Unavailable LUCI RODRÍGUEZ Unavailable [address] + [place] [address] DEIRDRE MORTEZA Unavailable [address] + [place] [address] R Unavailable Unavailable Unavailable LUCI RODRÍGUEZ Unavailable [address] + [place] [address] DEIRDRE MORTEZA Unavailable [address] + [place] [address] R Unavailable Unavailable Unavailable LUCI RODÍRGUEZ Unavailable [address] + [place] [address] DEIRDRE MORTEZA Unavailable [address] + [place] [address] R Unavailable Unavailable Unavailable LUCI RODRÍGUEZ Unavailable [address] + [place] [address] DEIRDRE MORTEZA Unavailable [address] + [place] [address] R Unavailable Unavailable Unavailable LUCI RODRÍGUEZ Unavailable [address] + [place] [address] GILMORE, MORTEZA Unavailable [address] + [place] [address] R Unavailable Unavailable Unavailable LUCI RODRÍGUEZ Unavailable [address] + [place] [address] GILMORE MORTEZA Unavailable [address] + [place] [address] R Unavailable Unavailable Unavailable LUCI RODRÍGUEZ Unavailable [address] + [place] [address] DEIRDRE MORTEZA Unavailable [address] + [place] [address] DEIRDRE MORTEZA Unavailable [address] + [place] [address] GILMOREMORTEZA BENAVIDEZ Unavailable [address] + [place] [address] R Unavailable Unavailable Unavailable LUCI RODRÍGUEZ Unavailable [address] + [place] [address] DEIRDRE MORTEZA Unavailable [address] + [place] [address] R Unavailable Unavailable Unavailable LUCI RODRÍGUEZ Unavailable [address] + [place] [address] MORTEZA GILMORE Unavailable [address] + [place] [address] R Unavailable Unavailable Unavailable LUCI RODRÍGUEZ Unavailable [address] + [place] [address] MORTEZA GILMORE Unavailable [address] + [place] [address] R Unavailable Unavailable Unavailable LUCI RODRÍGUEZ Unavailable [address] + [place] [address] MORTEZA GILMORE Unavailable [address] + [place] [address] R Unavailable Unavailable Unavailable LUCI RODRÍGUEZ Unavailable [address] + [place] [address] MORTEZA GILMORE Unavailable [address] [phone] [place] [address] R Unavailable Unavailable Unavailable LUCI RODRÍGUEZ Unavailable . + [place] [address] MORTEZA GILMORE Unavailable [address] + [place] [address] MORTEZA GILMORE Unavailable [address] + [place] [address] DEIRDRE MORTEZA Unavailable [address] + [place] [address] R Unavailable Unavailable Unavailable LUCI RODRÍGUEZ Unavailable [address] + [place] [address] WILNER GILMORETER Unavailable [address] + [place] [address] R Unavailable Unavailable Unavailable LUCI RODRÍGUEZ Unavailable [address] + [place] [address] DEIRDRE MORTEZA Unavailable [address] [phone] [place] [address] R Unavailable Unavailable Unavailable LUCI RODRÍGUEZ Unavailable [address] + [place] [address] WILNER GILMORETER Unavailable [address] + [place] [address] DEIRDRE MORTEZA Unavailable [address] + [place] [address] MORTEZA GILMORE Unavailable [address] + [place] [address] R Unavailable Unavailable Unavailable LUCI RODRÍGUEZ Unavailable [address] + [place] [address] DEIRDRE MORTEZA Unavailable [address] + [place] [address] R Unavailable Unavailable Unavailable LUCI RODRÍGUEZ Unavailable [address] + [place] [address] MORTEZA GILMORE Unavailable [address] [phone] [place] [address] R Unavailable Unavailable Unavailable LUCI RODRÍGUEZ Unavailable [address] + [place] [address] MORTEZA GILMORE Unavailable [address] [phone] [place] [address] R Unavailable Unavailable Unavailable LUCI RODRÍGUEZ Unavailable [address] + [place] [address] MORTEZA GILMORE Unavailable [address] + [place] [address] R Unavailable Unavailable Unavailable LUCI RODRÍGUEZ Unavailable [address] + [place] [address] MORTEZA GILMORE Unavailable [address] [phone] [place] [address] R Unavailable Unavailable Unavailable LUCI RODRÍGUEZ Unavailable . + [place] [address] MORTEZA GILMORE Unavailable [address] [phone] [place] [address] R Unavailable Unavailable Unavailable LUCI RODRÍGUEZ Unavailable Unavailable + MORTEZA GILMORE Unavailable [address] [phone] [place] [address] R Unavailable Unavailable Unavailable LUCI RODRÍGUEZ Unavailable Unavailable + MORTEZA GILMORE Unavailable [address] [phone] [place] [address] R Unavailable Unavailable Unavailable LUCI RODRÍGUEZ Unavailable Unavailable + MORTEZA GILMORE Unavailable [address] [phone] [place] [address] R Unavailable Unavailable Unavailable LUCI RODRÍGUEZ Unavailable Unavailable + MORTEZA GILMORE Unavailable [address] [phone] [place] [address] R Unavailable Unavailable Unavailable LUCI RODRÍGUEZ Unavailable Unavailable + MORTEZA GILMORE Unavailable [address] + [place] [address] R Unavailable Unavailable Unavailable LUCI RODRÍGUEZ Unavailable [address] + [place] [address] MORTEZA GILMORE Unavailable [address] [phone] [place] [address] R Unavailable Unavailable Unavailable LUCI RODRÍGUEZ Unavailable Unavailable + MORTEZA GILMORE Unavailable [address] [phone] [place] [address] R Unavailable Unavailable Unavailable LUCI RODRÍGUEZ Unavailable Unavailable + MORTEZA GILMORE Unavailable [address] [phone] [place] [address] R Unavailable Unavailable Unavailable MORTEZA GILMORE Unavailable [address] [phone] [place] [address] R Unavailable Unavailable Unavailable LUCI RODRÍGUEZ Unavailable Unavailable + DEIRDRE MORTEZA Unavailable [address] [phone] [place] [address] R Unavailable Unavailable Unavailable LUCI RODRÍGUEZ Unavailable Unavailable + MORTEZA GILMORE Unavailable [address] [phone] [place] [address] R Unavailable Unavailable Unavailable LUCI RODRÍGUEZ Unavailable Unavailable + MORTEZA GILMORE Unavailable [address] + [place] [address] MORTEZA GILMORE Unavailable [address] + [place] [address] MORTEZA GILMORE Unavailable [address] + [place] [address] MORTEZA GILMORE Unavailable [address] + [place] [address] WILNER GILMORETER Unavailable [address] + [place] [address] MORTEZA GILMORE Unavailable [address] + [place] [address] WILNER GILMORETER Unavailable [address] + [place] [address] MORTEZA GILMORE Unavailable [address] + [place] [address] WILNER GILMORETER Unavailable [address] + [place] [address] WILNER GILMORETER Unavailable [address] + [place] [address] MORTEZA GILMORE Unavailable [address] [phone] [place] [address] R Unavailable Unavailable Unavailable MORTEZA GILMORE Unavailable [address] [phone] [place] [address] R Unavailable Unavailable Unavailable Care Team Providers Name Role Phone DAVID LOWERY, JANIS Attending Unavailable RON WARREN MD Primary Care Unavailable RON WARREN MD Attending Unavailable RON WARREN MD Primary Care Unavailable RON WARREN MD Attending Unavailable RON WARREN MD Primary Care Unavailable DEBBY GARCIA, DR. MARIANNE Espino Attending Unavailable RON WARREN MD Primary Care Unavailable MARIANNE MEJIA Attending Unavailable RON WARREN MD Primary Care Unavailable RON WARREN MD Attending Unavailable RON WARREN MD Primary Care Unavailable YARED BARNES MD Attending Unavailable RON WARREN MD Primary Care Unavailable PRABHU LOWERY, TERRY Attending Unavailable TERRY PELLETIER MD Referring Unavailable RON WARREN MD Primary Care Unavailable KogeorgesJoshNelson F Admitting Unavailable James Flores Attending Unavailable WARREN, RON Primary Care Unavailable Slaby, Gage Consulting Unavailable Jopperi, James Consulting Unavailable Theodore, Mac Chi Admitting Unavailable Theodore, Mac Chi Attending Unavailable Theodore, Mac Chi Referring Unavailable WARREN, RON Primary Care Unavailable Slabshelley Gage Consulting Unavailable Kotsonis, Nelson F Admitting Unavailable Slaby, Gage Attending Unavailable WARREN, RON Primary Care Unavailable Slaby, Gage Consulting Unavailable Jopperi, James Consulting Unavailable Kotsonis, Nelson F Admitting Unavailable Slaby, Gage Attending Unavailable WARREN, RON Primary Care Unavailable Slaby, Gage Consulting Unavailable Jopperi, James Referring Unavailable Jopperi, James Consulting Unavailable Kenzie Webb Attending Unavailable WARREN, RON Referring Unavailable Theodore, Mac Chi Attending Unavailable Theodore, Mac Chi Referring Unavailable WARREN, RON Primary Care Unavailable Zoë Duke Attending Unavailable Cosmo Balderas Attending Unavailable WARREN, RON Referring Unavailable WARREN, RON Primary Care Unavailable Sharmaine Melendez Admitting Unavailable ASHANTI QUINTANA Referring Unavailable WARREN, RON Primary Care Unavailable Jessica Mendez Attending Unavailable Cosmo Balderas Consulting Unavailable Kogeorges Nelson F Admitting Unavailable Slaby, Gage Attending Unavailable WARREN, RON Primary Care Unavailable Slaby, Gage Consulting Unavailable Jopperi, James Consulting Unavailable Theodore, Mac Chi Admitting Unavailable Slaby Gage Attending Unavailable Theodore, Mac Chi Referring Unavailable WARREN, RON Primary Care Unavailable Slaby Gage Consulting Unavailable Theodore, Mac Chi Consulting Unavailable [place], [place] Attending Unavailable TheodoreMac taylor Chi Referring Unavailable Bradford, [place] Attending Unavailable Tereletsky, Hernando Referring Unavailable Gage Dudley Attending Unavailable WARREN, RON Primary Care Unavailable Romie, Sharmaine Admitting Unavailable ASHANTI QUINTANA Referring Unavailable WARREN, RON Primary Care Unavailable Romie, Sharmaine Consulting Unavailable Tereletsky, Hernando Attending Unavailable Romie, Sharmaine Admitting Unavailable Balderas, Cosmo Attending Unavailable ASHANTI QUINTANA Referring Unavailable WARREN, RON Primary Care Unavailable Balderas, Cosmo Consulting Unavailable Sementi, Jessica Consulting Unavailable Romie, Sharmaine Admitting Unavailable Sementi, Jessica Attending Unavailable ASHANTI QUINTANA Referring Unavailable WARREN, RON Primary Care Unavailable Balderas, Cosmo Consulting Unavailable Sementi, Jessica Consulting Unavailable Romie, Sharmaine Admitting Unavailable Sementi, Jessica Attending Unavailable ASHANTI QUINTANA Referring Unavailable WARREN, RON Primary Care Unavailable Cosmo Balderas Consulting Unavailable Sementi, Jessica Consulting Unavailable Andrey, Cosmo Attending Unavailable Balderas, Cosmo Referring Unavailable WARREN, RON Primary Care Unavailable Cosmo Balderas Attending Unavailable WARREN, RON Primary Care Unavailable Balderas, Cosmo Referring Unavailable Balderas, Cosmo Attending Unavailable Balderas, Cosmo Referring Unavailable WARREN, RON Primary Care Unavailable Balderas, Cosmo Attending Unavailable Balderas, Cosmo Referring Unavailable WARREN, RON Primary Care Unavailable Balderas, Cosmo Attending Unavailable Balderas, Cosmo Referring Unavailable WARREN, RON Primary Care Unavailable Bradford, Davidson Attending Unavailable Sementi, Jessica Referring Unavailable Kilmatthew, Zoë Attending Unavailable Balderas, Cosmo Attending Unavailable WARREN, RON Referring Unavailable WARREN, RON Primary Care Unavailable Balderas, Cosmo Attending Unavailable WARREN, RON Referring Unavailable Balderas, Cosmo Attending Unavailable Balderas, Cosmo Referring Unavailable WARREN, RON Primary Care Unavailable Balderas, Cosmo Attending Unavailable Balderas, Cosmo Referring Unavailable WARREN, RON Primary Care Unavailable Balderas, Cosmo Attending Unavailable Balderas, Cosmo Referring Unavailable WARREN, RON Primary Care Unavailable Kilner, Zoë Attending Unavailable Balderas, Cosmo Attending Unavailable Ablderas, Cosmo Attending Unavailable Balderas, Cosmo Referring Unavailable WARREN, RON Primary Care Unavailable Balderas, Cosmo Attending Unavailable Balderas, Cosmo Attending Unavailable Balderas, Cosmo Attending Unavailable Balderas, Cosmo Referring Unavailable WARREN, RON Primary Care Unavailable Balderas, Cosmo Attending Unavailable Balderas, Cosmo Referring Unavailable WARREN, RON Primary Care Unavailable Balderas, Cosmo Attending Unavailable Baldersa, Cosmo Referring Unavailable RON WARREN Primary Care Unavailable Kathie Juares Attending Unavailable RON WARREN Referring Unavailable Cosmo Balderas Attending Unavailable Cosmo Balderas Referring Unavailable WARREN, RON Primary Care Unavailable Cosmo Balderas Attending Unavailable Cosmo Balderas Referring Unavailable WARREN, RON Primary Care Unavailable WARREN, RON Primary Care Unavailable Kotsonis, Nelson F Admitting Unavailable Gage Dudley Consulting Unavailable James Flores Attending Unavailable Kotsonis, Nelson F Admitting Unavailable Kotsonis, Nelson F Attending Unavailable KELVIN, RON Primary Care Unavailable Kotsonis, Nelson F Consulting Unavailable Kotsonis, Nelson F Admitting Unavailable Hernando Decker Attending Unavailable WARREN, RON Primary Care Unavailable SlabGage rosa Consulting Unavailable Tereletsky, Hernando Consulting Unavailable Kotsonis, Nelson F Admitting Unavailable Tereletssocrates, Hernando Attending Unavailable WARREN, RON Primary Care Unavailable SlabGage rosa Consulting Unavailable Tereletsky, Hernando Consulting Unavailable Kotsonis, Nelson F Admitting Unavailable Mark, James Attending Unavailable WARREN, RON Primary Care Unavailable SlabGage rosa Consulting Unavailable Jopperi, James Consulting Unavailable PROBLEMS PROBLEMS DATE TYPE CONDITION / CODE ATTENDING STATUS SOURCE Unknown R53.81 - Other malaise Theodore, Mac Chi Active [place] [facility] / R53.81(ICD-10) [facility] Repository Unknown S31.819A - Unspecified Theodore, Mac Chi Active [place] [facility] open wound of right Community buttock, initial Hospital encounter / Repository S31.819A(ICD-10) Unknown R94.31 - Abnormal Bradford, Davidson Active [place] 9 electrocardiogram Community [ECG] [EKG] / Hospital R94.31(ICD-10) Repository Unknown I10 - Essential Bradford, [place] Active [place] [facility] (primary) hypertension Community / I10(ICD-10) Hospital Repository Unknown I48.0 - Paroxysmal Bradford, [place] Active [place] 9 atrial fibrillation / Community I48.0(ICD-10) Hospital Repository Unknown T14.8XXA - Other Gage Dudley Active [place] 8 injury of unspecified Community body region, initial Hospital encounter / Repository T14.8XXA(ICD-10) Unknown S70.01XA - Contusion Gage Dudley Active [place] 8 of right hip, initial Community encounter / Hospital S70.01XA(ICD-10) Repository Unknown I48.91 - Unspecified Cosmo Balderas Active [place] 8 atrial fibrillation / Community I48.91(ICD-10) Hospital Repository Unknown 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[place] 8 (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409(ICD-10) Admitting Vitamin D deficiency, KELVIN LOWERY, Active [facility] 8 Diagnosis unspecified / [facility] E55.9(ICD-10) Repository Admitting Rheumatoid arthritis, KELVIN LOWERY, Active [facility] 8 Diagnosis unspecified / RON D[facility] M06.9(ICD-10) Repository Unknown R06.00 - Dyspnea, Cosmo Balderas Active [place] [facility] unspecified / Community R06.00(ICD-10) Hospital Repository Unknown R00.1 - Bradycardia, Bradford, [place] Active [place] 8 unspecified / Community R00.1(ICD-10) Hospital Repository Admitting Urinary tract DEBBY DR. JOSE Active [facility] 8 Diagnosis infection, site not MARIANNE A[facility] specified / Repository N39.0(ICD-10) Admitting Hypothyroidism, KELVIN LOWERY, Active [facility] 8 Diagnosis unspecified / [facility] E03.9(ICD-10) Repository Admitting Mixed hyperlipidemia / KELVIN LOWERY, Active [place] [address] Diagnosis E78.2(ICD-10) [facility] Repository Admitting Unspecified atrial KELVIN LOWERY, Active [place] [address] Diagnosis fibrillation / RON [facility] I48.91(ICD-10) Repository PROCEDURES PROCEDURES No Procedure Records FoundRESULTS RESULTS DISCHARGE SUMMARY Observed: 04/18/2018 Status: F Source: [place] 8:06 AM [facility] REPOSITORY [facility] Medical Records Department [address] [place] [address] Discharge Summary 04/12/182050 MR#: [id number] Acct: [id number] Name: BELIA GILMORE Rep #: [id number] : 1940 77 From: aMc Jaimes MD PCP: Ron Warren MD Status: ADM IN Y Location: [place] [address] ADDENDUM by Mac Jaimes MD on 04/18/18 at 0806 Code Visit 04/18/2018 Resident c/o yumiko, UA c/w UTI, urine culture pending, disharge on Nitrofurantoin 100MG BID x 5 days. 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 Electronically Signed: Sarthak Tucker MD at 13:35 EST Tel [phone], Service support , Chest X-Ray 03/24/18 20:54 IMPRESSION: Right PICC is faintly visualized and probably reaches the proximal superior vena cava. Negative for sequelae of line placement. No acute findings or changes. 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 Procedures: None Summary of Care Provided: The patient is a 77 year old Female with below past medical history hospitalized for fall, right buttock hematoma requiring I+D with wound vac per Dr. Dudley 03/20/2018, complicated by L3 compression fracture, acute blood loss anemia requiring transfusion, encephalopathy secondary to opioid pain medications, admitted to TCU with debility, here for rehabilitation, strengthening, wound care, prior to discharge home with spouse. Discharge home with spouse, and Home Health Services. Restart warfarin as outpatient after seeing Dr. Ron Warren, wound no longer bleeding, healthy granulation tissue, safe to resume anticoagulation. - Physical Exam Vital Signs Temp Pulse Resp BP Pulse Ox 96.9 F L 59 L 16 109/55 L 95 04/12/18 15:50 04/12/18 15:50 04/12/18 15:50 04/12/18 15:50 04/12/18 15:50 Oxygen Delivery Method Room Air Weight: 84 kg Body Mass Index (BMI) 32.8 Intake and Output for Last 24 Hours Intake Total 780 / 780 660 / 660 600 / 600 Balance 780 / 780 660 / 660 600 / 600 Discharge Diet: No Restrictions Discharge Activity: Return to Normal Activity, May Shower, Use Walker Weight Bearing Status: Weight bearing as tolerated Call your doctor if you observe: Fever of 101 or Higher, Inability to urinate, Inability to have a bowel movement, Shortness of breath, Chest pain, Uncontrolled pain Home Medications: Medications to take at Discharge Atorvastatin Calcium [Lipitor] 20 mg PO QHS 10/17/14 Ergocalciferol [Vitamin D] 5,000 unit PO QODAY 10/17/14 Sertraline HCl [Zoloft] 100 mg PO DAILY 10/17/14 Carvedilol 6.25 mg PO BID 03/17/18 Hydrochlorothiazide [Hctz] 25 mg PO QAM 03/17/18 amiodarone 200 mg tablet 200 mg PO DAILY #30 tab 03/23/18 levothyroxine 100 mcg tablet PO 90 Days #90 tab 03/23/18 Acetaminophen [Tylenol] 1,000 mg PO Q6H PRN PRN tablet 04/12/18 Amiodarone HCl [Cordarone] 200 mg PO DAILY #30 tablet 04/12/18 Bisacodyl [Dulcolax] 10 mg PO DAILY PRN #30 tablet 04/12/18 Iron Polysaccharide Complex [Ferrex 150] 150 mg PO DAILYCM #30 capsule 04/12/18 Levothyroxine [Synthroid] 100 mcg PO DAILY #30 tablet 04/12/18 Mineral Oil/Petrolatum,White [Eucerin] 1 applic TOPICAL 2200 jar 04/12/18 Nutritional Supplement [Mayda - ORANGE FLAVOR] 1 packet PO BIDCM #60 packet 04/12/18 Nystatin Powder [Mycostatin Powder] 1 applic TOPICAL 0600,2200 bottle 04/12/18 Oxycodone [Oxyir] 5 - 10 mg PO Q4H PRN 5 Days #30 tab 04/12/18 Polyethylene Glycol 3350 [Miralax] 17 gm PO DAILY #30 packet 04/12/18 Senna/Docusate Sodium [Senokot-S] 2 tablet PO BID #120 tablet 04/12/18 fentaNYL patch [Duragesic Patch] 12 mcg TRANSDERM. Q3D 30 Days #10 patch 04/12/18 Following Prescrptions Were Given to Patient: Amiodarone HCl [Cordarone] 200 mg PO DAILY #30 tablet Bisacodyl [Dulcolax] 10 mg PO DAILY PRN #30 tablet PRN Reason: Constipation fentaNYL patch [Duragesic Patch] 12 mcg TRANSDERM. Q3D 30 Days #10 patch Iron Polysaccharide Complex [Ferrex 150] 150 mg PO DAILYCM #30 capsule Levothyroxine [Synthroid] 100 mcg PO DAILY #30 tablet Oxycodone [Oxyir] 5 - 10 mg PO Q4H PRN 5 Days #30 tab PRN Reason: Mod-Severe Pain (-01/18) Polyethylene Glycol 3350 [Miralax] 17 gm PO DAILY #30 packet Nutritional Supplement [Mayda - ORANGE FLAVOR] 1 packet PO BIDCM #60 packet Senna/Docusate Sodium [Senokot-S] 2 tablet PO BID #120 tablet Primary Care Physician: Ron Warren MD [Primary Care Provider] - Please follow up with your Primary Care Physician in: 1 week. Please Follow Up With: Dr Dudley When: called on 03-22-18 Please Follow Up With: Cosmo Balderas MD When: 1 week. Disposition: Home with Home Health Minutes spent on discharge:: 35 Patient Condition:: Stable Medical Necessity - Tobacco Use Smoking Status: Never smoker Tobacco Use: Non-smoker Meaningful Use Info Meaningful Use Diagnoses (Choose all that apply): None applicable 04/12/182053 <Electronically signed by Mac Jaimes MD> Date Mac Jaimes MD Cosigner Signature (if applicable): Date CC: Ron Warren MD; Mac Jaimes MD Signed URINALYSIS, COMPLETE Collected: 04/18/2018 Status: F Source: [place] 5:30 AM [facility] REPOSITORY Order Comment: How was Urine Obtained? CLEAN CATCH TYPE CODE TESTS RESULT OUT OF RANGE REFERENCE UNITS LAB L400.3000 Yellow COLOR Normal Yellow LAB L400.3050 Clear Normal CLARITY Clear LAB L400.3200 Normal mg/dl Normal GLUCOSE, UR Normal LAB L400.3300 Negative mg/dL Normal BILIRUBIN URINE Negative LAB L400.3400 Negative mg/dl Normal KETONE UR Negative LAB L400.3465 1.002-1.030 Normal SP.GR. DIPSTX 1.010 LAB L400.3550 5.0 - 8.0 pH UR Normal 7.0 LAB L400.3600 Negative mg/dl PROT Normal DIPSTX Negative LAB L400.3700 Normal mg/dl Normal UROBILI Normal LAB L400.3750 Negative Normal NITRITE UR Negative LAB L400.3780 Negative /ul Normal OCCULT BLOOD-UR Negative LAB L400.3800 Negative /ul High LEUK ESTERASE 500 LAB L400.4050 0-5 /hpf WBC Normal 5-10 SEEN LAB L400.4100 0-5 /hpf 0 Normal RBC-UA SEEN LAB L400.4150 5-10 /hpf SQUAM Normal EPI 0-5 SEEN LAB L400.4300 None Seen /hpf 0 Normal BACTERIA SEEN LAB L400.4350 <or=2+ /hpf 0 Normal MUCUS, URINE SEEN Performed By: #### L400.0001 #### [facility] [address] [place], [address] Observed: 04/18/2018 Status: F Source: [place] CULTURE, URINE 5:30 AM [facility] REPOSITORY Urine Culture Below infection level. ORGANISM 1: Mixed Gram Pos AND Gram Neg Org [place] Count 25,000-50,000 MIX CULTURE Mixed contaminants. Submit a new specimen if indicated. Performed By: #### M100.0650 #### [facility] [address] [place], [address] ABD INC DECUB Observed: 04/17/2018 Status: F Source: [place] AND/OR ERECT 6:08 PM [facility] REPOSITORY [facility] Imaging Services [address] [place] [address] Abd Inc Decub and/or Erect MR#: [id number] Acct: [id number] Name: BELIA GILMORE Rep #: [id number] : 1940 F 77 From: Emelyn Talamantes MD PCP: Ron Warren MD Status: ADM IN Study: Abd Inc Decub and/or Erect Date of Exam: 04/17/18 Exam# [id number] Ordering Dr: Mac Jaimes MD STUDY: X-RAY - ABDOMEN/PELVIS REASON FOR EXAM: Female, 77 years old. Abdominal pain. TECHNIQUE: 3 frontal images of the abdomen. COMPARISON: None. FINDINGS: Normal visualized lung bases. There is an unremarkable bowel gas pattern. There is no demonstrated free abdominal air. Normal soft tissue structures. Normal visualized osseous structures. RAD/Abd Inc Decub and/or Erect IMPRESSION: Nonspecific bowel gas pattern. Electronically Signed: Emelyn Talamantes MD at 18:57 EST Tel , Service support , CC: Ron Warren MD; Mac Jaimes MD Siding Installer: Signed CHEST PA AND LATERAL Observed: 04/17/2018 Status: F Source: [place] 6:08 PM [facility] REPOSITORY [facility] Imaging Services [address] [place] [address] Chest PA and Lateral MR#: [id number] Acct: [id number] Name: BELIA GILMORE Rep #: [id number] : 1940 F 77 From: Emelyn Talamantes MD PCP: Ron Warren MD Status: ADM IN Study: Chest PA and Lateral Date of Exam: 04/17/18 Exam# [id number] Ordering Dr: Mac Jaimes MD STUDY: X-RAY CHEST REASON FOR EXAM: Female, 77 years old. Cough TECHNIQUE: PA and lateral views of the chest. COMPARISON: March 24, [address] dated March 23, 2018 FINDINGS: There is no new focal consolidation. The lungs are hyperinflated. Normal size heart. Normal mediastinum and antoine. Normal visualized pulmonary arteries. Normal visualized aortic arch and descending thoracic aorta. There is demineralization of the osseous structures. There is a stable superior endplate deformity of a mid thoracic vertebra. Normal visualized ribs, clavicles, and shoulders. There is no demonstrated abnormality of the visualized soft tissue structures of the upper abdomen. RAD/Chest PA and Lateral IMPRESSION: Hyperinflated lungs may reflect underlying COPD. Electronically Signed: Emelyn Talamantes MD at 19:12 EST Tel , Service support , CC: Ron Warren MD; Mac Jaimes MD Siding Installer: Signed CBC W/DIFF, AUTOMATED Collected: 04/16/2018 Status: F Source: [place] 5:50 PM [facility] REPOSITORY TYPE CODE TESTS RESULT OUT OF RANGE REFERENCE UNITS LAB L100.1000 4.4-11.0 K/mm3 Normal WBC 7.6 LAB L100.1200 4.2-5.4 M/mm3 Low RBC 3.99 LAB L100.1300 12.0-15.0 g/dl Normal HGB 12.7 LAB L100.1400 37-47 % Normal HCT 39.9 LAB L100.1500 81-99 fL High MCV 100.0 LAB L100.1600 27.0-32.0 pg Normal MCH 31.8 LAB L100.1700 32-36 g/gl Low MCHC 31.8 LAB L100.1810 11.6-14.6 % High RDW CV 15.2 LAB L100.1820 35.1-43.9 fl High RDW SD 55.8 LAB L100.1900 150-450 K/mm3 Normal PLT 215 LAB L100.2000 6.2-12.0 fl Normal MPV 9.8 LAB L100.2100 47-70 % Normal NEUT% 69.8 LAB L100.2200 19-41 % Low LY% 17.1 LAB L100.2300 0-10 % Normal MONO% 9.4 LAB L100.2400 0-5 % Normal EO% 3.3 LAB L100.2500 0-1 % Normal BASO% 0.3 LAB L100.2550 0.0-0.9 % Normal IM GRAN % 0.100 Result Comment: IG% - Immature Granulocytes (promyelocytes, myelocytes and metamyelocytes) > 1% indicates that a LEFT SHIFT is Present. LAB L100.2620 2.0-7.7 X10 3/uL Normal Absolute Neut 5.3 LAB L100.2720 0.83-4.51 X10 3/ul Normal Absolute Lymph 1.31 Performed By: #### L100.0100 #### [facility] [address] [place], [address] BASIC METABOLIC Collected: 04/16/2018 Status: F Source: [place] PROFILE ([place]) 5:50 PM [facility] REPOSITORY TYPE CODE TESTS RESULT OUT OF RANGE REFERENCE UNITS LAB L501.0100 74-106 mg/dL High GLU 135 Result Comment: Fasting Glucose result greater than or equal to 126 mg/dL suggests DIABETES MELLITUS per A.D.A. criteria. Please note revised GLUCOSE reference range effective 2017. LAB L501.1000 7-18 mg/dL High BUN 31 LAB L501.1100 0.55-1.02 mg/dL Normal CREAT,SERUM 0.82 Result Comment: The validity of the calculated GFR AND GFRAA in patients over 70 years has not been determined. Clinical correlation is essential. LAB L501.1110 >60 mL/min Normal EST GFR 72 Result Comment: Non- GFR Calc LAB L501.1115 >60 mL/min Normal EST GFR - AA 88 Result Comment: GFR Calc LAB L501.1255 ml/min Normal Estimated CRCL 50.40 LAB L501.1300 10-20 RATIO High BUN/CRE 38.0 LAB L501.2200 8.5-10 mg/dL Normal .1 CA 9.0 LAB L501.5300 136-14 mmol/L Normal 5 NA 137 LAB L501.5600 3.5-5. mmol/L Normal 1 K 4.3 LAB L501.5900 98-107 mmol/L Normal CL 100 LAB L501.6100 21.0-3 mmol/L Normal 2.0 CO2 31.0 LAB L501.6200 5-15 Normal GAP 6 Performed By: #### L500.2500 #### [facility] [address] [place], [address] BEDSIDE GLUCOSE Collected: 04/16/2018 Status: F Source: [place] 3:23 PM [facility] REPOSITORY TYPE CODE TESTS RESULT OUT OF REFERENCE UNITS RANGE LAB L501.080 70-110 mg/dL High BEDSIDE GLU 128 Result Comment: MANAGEMENT OF PATIENT CARE PER NURSING PROTOCOL Performed By: #### L501.080 #### [facility] Point of Care [address] [place] [address] HOME HEALTH PROGRESS Observed: 04/12/2018 Status: F Source: [place] NOTE 8:55 PM [facility] REPOSITORY [facility] Medical Records Department [address] [place] [address] Home Health Progress Note [id number] Encounter Encounter Date: 04/12/182053 MR#: [id number] Acct: [id number] Name: BELIA GILMORE Rep #: [id number] : 1940 77 From: Mac Jaimes MD PCP: Ron Warren MD Status: ADM IN Location: [place] [address] Home Health Note - Plan Overview of reason of hospitalization: The patient is a 77 year old Female with below past medical history hospitalized for fall, right buttock hematoma requiring I+D with wound vac per Dr. Dudley 03/20/2018, complicated by L3 compression fracture, acute blood loss anemia requiring transfusion, encephalopathy secondary to opioid pain medications, admitted to TCU with debility, here for rehabilitation, strengthening, wound care, prior to discharge home with spouse. Discharge home with spouse, and Home Health Services. Restart warfarin as outpatient after seeing Dr. Ron Warren, wound no longer bleeding, healthy granulation tissue, safe to resume anticoagulation. Problems: Patient was seen for (Last Updated 03/21/18 @ 22:18 by Gage Dudley MD) Atrial fibrillation (Chronic) Hypothyroidism (Chronic) 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 (Chronic) Peptic ulcer disease (Chronic) Rheumatoid arthritis (Chronic) Gastrointestinal bleed (Chronic) Vitamin D deficiency (Chronic) Depression (Chronic) Complete List of Medical Problems (Last Updated 03/21/18 @ 22:18 by Gage Dudley MD) Open wound of right buttock with complication (Acute) Traumatic hematoma of buttock (Acute) Hematoma of right lower extremity (Acute) Atrial fibrillation (Chronic) Hypothyroidism (Chronic) 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 (Chronic) Peptic ulcer disease (Chronic) Rheumatoid arthritis (Chronic) Gastrointestinal bleed (Chronic) Vitamin D deficiency (Chronic) Depression (Chronic) Compression fracture of L3 vertebra (Acute) Fall (Acute) Hematoma (Acute) Acute blood loss anemia (Acute) 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) DVT (deep venous thrombosis) (Chronic) Hyperlipidemia (Chronic) Paroxysmal atrial fibrillation (Chronic) - Requirements and Reasons Disciplines Needed/Ordered: Prison, Physical Therapy Reason for Disciplines: Disease Specific Monitoring/education, Medication Management/Knowledge Deficit, Wound Care, Gait Training, Stair Training, Fall Prevention, Home Safety/Equipment Instruction, Balance and/or Posture Training, Transfer Training Related To: Limited/Poor Endurance, Shortness of Breath with Activity, Physical Impairments, Unsteady Gait/Balance, Fall Risk Patient is unable to leave the home: Without Aid of Supportive Devices (crutches, cane, wheelchair, walker), Without the assistance of another person 04/12/182054 <Electronically signed by Mac Jaimes MD> Date Mac Jaimes MD Cosigner Signature (if indicated): Date CC: Signed DISCHARGE INSTRUCTION Observed: 04/12/2018 Status: F Source: [place] 8:51 PM [facility] REPOSITORY [facility] Medical Records Department [address] [place] [address] Instructions for Home/Discharge Instructions 04/12/182049 MR#: [id number] Acct: [id number] Name: BELIA GILMORE Rep #: [id number] : 1940 77 From: Mac Jaimes MD PCP: Ron Warren MD Status: ADM IN - Discharge Diagnoses Current Active Problems: Current Active and Chronic Problems (Last Updated 03/21/18 @ 22:18 by Gage Dudley MD) Atrial fibrillation (Chronic) Hypothyroidism (Chronic) 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 (Chronic) Peptic ulcer disease (Chronic) Rheumatoid arthritis (Chronic) Gastrointestinal bleed (Chronic) Vitamin D deficiency (Chronic) Depression (Chronic) You will use the following diet at home:: No restrictions, Regular Your food should be the consistency of: Regular Your liquids should be the consistency of: Regular/Thin Discharge Activity: Return to Normal Activity, May Shower, Use Walker Weight Bearing Status: Weight bearing as tolerated Call your doctor if you observe: Fever of 101 or Higher, Inability to urinate, Inability to have a bowel movement, Shortness of breath, Chest pain, Uncontrolled pain Allergies/Adverse Reactions: Allergies cephalexin monohydrate [From Keflex] Allergy (Verified 03/23/18 14:21) Hives ethchlorvynol [From Placidyl] Allergy (Verified 03/23/18 14:21) Unknown NSAIDS (Non-Steroidal Anti-Inflamma Allergy (Verified 03/23/18 14:21) Unknown Penicillins [PCN] Allergy (Verified 03/23/18 14:21) Unknown Sulfa (Sulfonamide Antibiotics) Allergy (Verified 03/23/18 14:21) Rash sulfamethoxazole [From Septra] Allergy (Verified 03/23/18 14:21) Unknown trimethoprim [From Septra] Allergy (Verified 03/23/18 14:21) Unknown Medications to take at Discharge Atorvastatin Calcium [Lipitor] 20 mg PO QHS 10/17/14 Ergocalciferol [Vitamin D] 5,000 unit PO QODAY 10/17/14 Sertraline HCl [Zoloft] 100 mg PO DAILY 10/17/14 Carvedilol 6.25 mg PO BID 03/17/18 Hydrochlorothiazide [Hctz] 25 mg PO QAM 03/17/18 amiodarone 200 mg tablet 200 mg PO DAILY #30 tab 03/23/18 levothyroxine 100 mcg tablet PO 90 Days #90 tab 03/23/18 Acetaminophen [Tylenol] 1,000 mg PO Q6H PRN PRN tablet 04/12/18 Amiodarone HCl [Cordarone] 200 mg PO DAILY #30 tablet 04/12/18 Bisacodyl [Dulcolax] 10 mg PO DAILY PRN #30 tablet 04/12/18 Iron Polysaccharide Complex [Ferrex 150] 150 mg PO DAILYCM #30 capsule 04/12/18 Levothyroxine [Synthroid] 100 mcg PO DAILY #30 tablet 04/12/18 Mineral Oil/Petrolatum,White [Eucerin] 1 applic TOPICAL 2200 jar 04/12/18 Nutritional Supplement [Mayda - ORANGE FLAVOR] 1 packet PO BIDCM #60 packet 04/12/18 Nystatin Powder [Mycostatin Powder] 1 applic TOPICAL 0600,2200 bottle 04/12/18 Oxycodone [Oxyir] 5 - 10 mg PO Q4H PRN 5 Days #30 tab 04/12/18 Polyethylene Glycol 3350 [Miralax] 17 gm PO DAILY #30 packet 04/12/18 Senna/Docusate Sodium [Senokot-S] 2 tablet PO BID #120 tablet 04/12/18 fentaNYL patch [Duragesic Patch] 12 mcg TRANSDERM. Q3D 30 Days #10 patch 04/12/18 The following prescriptions were given: Amiodarone HCl [Cordarone] 200 mg PO DAILY #30 tablet Bisacodyl [Dulcolax] 10 mg PO DAILY PRN #30 tablet PRN Reason: Constipation fentaNYL patch [Duragesic Patch] 12 mcg TRANSDERM. Q3D 30 Days #10 patch Iron Polysaccharide Complex [Ferrex 150] 150 mg PO DAILYCM #30 capsule Levothyroxine [Synthroid] 100 mcg PO DAILY #30 tablet Oxycodone [Oxyir] 5 - 10 mg PO Q4H PRN 5 Days #30 tab PRN Reason: Mod-Severe Pain (4-10) Polyethylene Glycol 3350 [Miralax] 17 gm PO DAILY #30 packet Nutritional Supplement [Mayda - ORANGE FLAVOR] 1 packet PO BIDCM #60 packet Senna/Docusate Sodium [Senokot-S] 2 tablet PO BID #120 tablet Primary Care Physician: Ron Warren MD [Primary Care Provider] - Please follow up with your Primary Care Physician in: 1 week. Test Results: Test results from this visit will be discussed in further detail at your follow-up appointment, if applicable. Please Follow Up With: Dr Dudley When: called on 03-22-18 Please Follow Up With: Cosmo Balderas MD When: 1 week. Proposed Discharge Date: 04/18/18 04/12/182050 <Electronically signed by Mac Jaimes MD> Date Mac Jaimes MD CC: Gage Dudley MD; Ron Warren MD Signed CBC W/DIFF, AUTOMATED Collected: 04/05/2018 Status: F Source: [place] 5:30 AM [facility] REPOSITORY Order Comment: SPECIMEN OBTAINED FROM LINE DRAW TYPE CODE TESTS RESULT OUT OF RANGE REFERENCE UNITS LAB L100.1000 4.4-11.0 K/mm3 Normal WBC 6.0 LAB L100.1200 4.2-5.4 M/mm3 Low RBC 3.58 LAB L100.1300 12.0-15.0 g/dl Low HGB 11.6 LAB L100.1400 37-47 % Low HCT 36.8 LAB L100.1500 81-99 fL High MCV 102.8 LAB L100.1600 27.0-32.0 pg High MCH 32.4 LAB L100.1700 32-36 g/gl Low MCHC 31.5 LAB L100.1810 11.6-14.6 % High RDW CV 17.9 LAB L100.1820 35.1-43.9 fl High RDW SD 65.0 LAB L100.1900 150-450 K/mm3 Normal PLT 191 LAB L100.2000 6.2-12.0 fl Normal MPV 10.3 LAB L100.2100 47-70 % Normal NEUT% 64.3 LAB L100.2200 19-41 % Normal LY% 23.0 LAB L100.2300 0-10 % Normal MONO% 8.1 LAB L100.2400 0-5 % Normal EO% 3.8 LAB L100.2500 0-1 % Normal BASO% 0.5 LAB L100.2550 0.0-0.9 % Normal IM GRAN % 0.300 Result Comment: IG% - Immature Granulocytes (promyelocytes, myelocytes and metamyelocytes) > 1% indicates that a LEFT SHIFT is Present. LAB L100.2620 2.0-7.7 X10 3/uL Normal Absolute Neut 3.9 LAB L100.2720 0.83-4.51 X10 3/ul Normal Absolute Lymph 1.39 Performed By: #### L100.0100 #### [facility] [address] [place], [place], [address] BASIC METABOLIC Collected: 04/05/2018 Status: F Source: [place] PROFILE ([place]) 5:30 AM [facility] REPOSITORY Order Comment: SPECIMEN OBTAINED FROM LINE DRAW TYPE CODE TESTS RESULT OUT OF RANGE REFERENCE UNITS LAB L501.0100 74-106 mg/dL Normal GLU 91 Result Comment: Please note revised GLUCOSE reference range effective 2017. LAB L501.1000 7-18 mg/dL High BUN 34 LAB L501.1100 0.55-1.02 mg/dL Normal CREAT,SERUM 0.93 Result Comment: The validity of the calculated GFR AND GFRAA in patients over 70 years has not been determined. Clinical correlation is essential. LAB L501.1110 >60 mL/min Normal EST GFR 62 Result Comment: Non- GFR Calc LAB L501.1115 >60 mL/min Normal EST GFR - AA 75 Result Comment: GFR Calc LAB L501.1255 ml/min Normal Estimated CRCL 44.44 LAB L501.1300 10-20 RATIO High BUN/CRE 36.6 LAB L501.2200 8.5-10 mg/dL Low .1 CA 8.3 LAB L501.5300 136-14 mmol/L Normal 5 NA 144 LAB L501.5600 3.5-5. mmol/L Normal 1 K 3.7 LAB L501.5900 98-107 mmol/L Normal CL 105 LAB L501.6100 21.0-3 mmol/L High 2.0 CO2 33.0 LAB L501.6200 5-15 Normal GAP 6 Performed By: #### L500.2500 #### [facility] [address] [place], [address] BASIC METABOLIC Collected: 03/29/2018 Status: F Source: [place] PROFILE ([place]) 5:20 AM [facility] REPOSITORY TYPE CODE TESTS RESULT OUT OF RANGE REFERENCE UNITS LAB L501.0100 74-106 mg/dL High GLU 112 Result Comment: Fasting Glucose result from 100 to 125 mg/dL suggests IMPAIRED HOMEOSTASIS per A.D.A. criteria. Please note revised GLUCOSE reference range effective 2017. LAB L501.1000 7-18 mg/dL High BUN 41 LAB L501.1100 0.55-1.02 mg/dL Normal CREAT,SERUM 0.95 Result Comment: The validity of the calculated GFR AND GFRAA in patients over 70 years has not been determined. Clinical correlation is essential. LAB L501.1110 >60 mL/min Normal EST GFR 61 Result Comment: Non- GFR Calc LAB L501.1115 >60 mL/min Normal EST GFR - AA 73 Result Comment: GFR Calc LAB L501.1255 ml/min Normal Estimated CRCL 43.50 LAB L501.1300 10-20 RATIO High BUN/CRE 43.2 LAB L501.2200 8.5-10 mg/dL Normal .1 CA 8.7 LAB L501.5300 136-14 mmol/L Normal 5 NA 142 LAB L501.5600 3.5-5. mmol/L Normal 1 K 4.4 LAB L501.5900 98-107 mmol/L Normal CL 103 LAB L501.6100 21.0-3 mmol/L Normal 2.0 CO2 31.0 LAB L501.6200 5-15 Normal GAP 8 Performed By: #### L500.2500 #### [facility] [address] [facility] [place], [place], [address] VENOUS DUPLEX LOWER Observed: 03/25/2018 Status: F Source: [place] EXTREMITY 1:49 PM [facility] REPOSITORY [facility] Cardiovascular Services [address] [place] [address] Venous Duplex US - Celso Extrem 03/24/18 1506 MR#: [id number] Acct: [id number] Name: BELIA GILMORE Rep #: [id number] : 1940 77 From: Chas Bonilla MD Attending Dr: Theodore LOWERY,Mac Manrique Status: ADM IN Ordering Dr: Mac Jaimes MD Date: 03/24/18 Location: TCU Sex: F C Admitted: 03/21/18 Reason For Study: BLE PAIN RIGHT LEFT GSV is normal. GSV is normal. CFV is compressible, spontaneous, phasic, CFV is compressible, spontaneous, phasic, competent and demonstrates normal competent, and demonstrates normal augmentation. augmentation. FV is compressible, spontaneous, phasic, FV is compressible, spontaneous, phasic, competent and demonstrates normal competent and demonstrates normal augmentation. augmentation. POP V is compressible, spontaneous, phasic, POP V is compressible, spontaneous, phasic, competent and demonstrates normal competent and demonstrates normal augmentation. augmentation. T/P Trunk is compressible. T/P Trunk is compressible. PTV is compressible. PTV is compressible. RT PerV is compressible. LT PerV is compressible. Procedure Exam performed portable in patient room. The study was technically difficult. Due to wound with wound vac on right buttock. Unable to position patient for optimal RLE imaging. A preliminary report was called and/or faxed to TCU. Interpretation Summary Deep veins of the lower extremities are bilaterally patent and compressible segmentally. There is no evidence of deep vein thrombosis on either side. Valvular competence appears intact within the proximal deep venous systems bilaterally. The greater saphenous veins appear bilaterally patent and compressible segmentally. Ordering Physician: Mac Jaimes Referring Physician: Ron Warren Performed By: Brenda Vela, RDCS, RVT 03/25/18 1348 Date Chas Bonilla MD CC: Ron Warren MD; Mac Jaimes MD Date Dictated: 03/24/18 1506 Date Transcribed: 03/25/18 134 Siding Installer: Signed CXR FOR LINE PLACEMENT Observed: 03/24/2018 Status: F Source: [place] 8:31 PM [facility] REPOSITORY [facility] Imaging Services [address] [place] [address] CXR for Line Placement MR#: [id number] Acct: [id number] Name: BELIA GILMORE Rep #: [id number] : 1940 F 77 From: Makenzie Page MD PCP: Ron Warren MD Status: ADM IN Study: CXR for Line Placement Date of Exam: 03/24/18 Exam# [id number] Ordering Dr: Mac Jaimes MD STUDY: X-RAY CHEST REASON FOR EXAM: Female, 77 years old. Line placement TECHNIQUE: Single AP portable view of the chest. COMPARISON: Prior chest CT exam of March 23, 2018 FINDINGS: Right PICC is faintly visualized probably reaching the proximal superior vena cava but is not visualized thereafter over the density of the spine and ribs. Lung mcgarry remain expanded without major consolidation, focal atelectasis or a substantial pleural effusion. Normal size heart. Normal mediastinum and antoine. Normal visualized pulmonary arteries. There is atherosclerotic calcification of the aortic arch . Normal visualized ribs, clavicles, and shoulders. There is no demonstrated abnormality of the visualized soft tissue structures of the upper abdomen. RAD/CXR for Line Placement IMPRESSION: Right PICC is faintly visualized and probably reaches the proximal superior vena cava. Negative for sequelae of line placement. No acute findings or changes. Electronically Signed: Makenzie Page MD at 21:44 EST , Service support , CC: Ron Warren MD; Mac Jaimes MD Siding Installer: Signed 12 LEAD ELECTROCARDIOGRAM Observed: 03/24/2018 Status: F Source: [place] 11:13 AM [facility] REPOSITORY [facility] Cardiovascular Services [address] [place] [address] 12 Lead EKG 03/22/18 1522 MR#: [id number] Acct: [id number] Name: BELIA GILMORE Rep #: [id number] : 1940 77 From: Davidson Felder MD Attending Dr: Mac Jaimes MD, Chi Status: ADM IN Ordering Dr: Mac Jaimes MD Date: 03/22/18 Location: [facility] Sex: F C Admitted: 03/21/18 Test Reason : AFIB Blood Pressure : / mmHG Vent. Rate : 163 BPM Atrial Rate : 106 BPM P-R Int : 000 ms QRS Dur : 074 ms QT Int : 264 ms P-R-T Axes : 000 023 195 degrees QTc Int : 434 ms Atrial fibrillation Marked ST abnormality, possible septal subendocardial injury Abnormal ECG Confirmed by DAVIDSON FELDER MD ([id number]), deputy editor in chief LUCI DE LA O ([id number]) on 03/24/2018 11:12:58 AM Referred By: Mac Jaimes Confirmed By:DAVIDSON FELDER MD 03/24/18 1113 Date Davidson Felder MD CC: Ron Warren MD; Mac Jaimes MD Signed ANKLE MIN 3 VIEWS Observed: 03/24/2018 Status: F Source: [place] 9:55 AM [facility] REPOSITORY [facility] Imaging Services [address] [place] [address] Ankle min 3 Views MR#: [id number] Acct: [id number] Name: BELIA GILMORE Rep #: [id number] : 1940 F 77 From: Sarthak Tucker MD PCP: Ron Warren MD Status: ADM IN Study: Ankle min 3 Views Date of Exam: 03/24/18 Exam# [id number] Ordering Dr: Mac Jaimes MD STUDY: X-RAY - LEFT ANKLE REASON FOR EXAM: Female, 77 years old. Left ankle pain. TECHNIQUE: 3 view(s) of the ankle. COMPARISON: None. FINDINGS: Normal visualized distal tibia and fibula. Normal medial and lateral malleoli. Normal tibiotalar articulation and ankle mortise. Small plantar spur. The visualized subtalar, talonavicular, calcaneocuboid and tarsal articulations are normal. The soft tissue structures are unremarkable. RAD/Ankle min 3 Views IMPRESSION: Small plantar spur. Electronically Signed: Sarthak Tucker MD at 13:35 EST Tel [phone], Service support , CC: Ron Warren MD; Mac Jaimes MD Siding Installer: Signed CTA CHEST W/WO Observed: 03/23/2018 Status: F Source: [place] CONTRAST 4:45 PM [facility] REPOSITORY [facility] Imaging Services [address] [place] [address] CTA Chest W/WO Contrast MR#: [id number] Acct: [id number] Name: BELIA GILMORE Rep #: [id number] : 1940 F 77 From: Makenzie Page MD PCP: Ron Warren MD Status: REG CLI Study: CTA Chest W/WO Contrast Date of Exam: 03/23/18 Exam# [id number] Ordering Dr: Mac Jaimes MD STUDY: CTA CHEST REASON FOR EXAM: Female, 77 years old. Shortness of breath with history of DVT. Currently not on anticoagulant therapy. History of atrial fibrillation and skin cancer. RADIATION DOSAGE (If Supplied By Facility): CTDIvol = ( 14.12 ) mGy, DLP = ( 523.58 ) mGycm TECHNIQUE: The examination was performed with the intravenous administration of 100 ml of Isovue 370 contrast material. Post-processing of the angiographic images was performed, with multiplanar reformation and 3D reconstruction. Individualized dose optimization techniques were used for this CT. COMPARISON: None. FINDINGS: Normal enhancement of the main pulmonary artery and right and left pulmonary arteries. Normal enhancement of the bilateral peripheral pulmonary arteries. There is no demonstrated pulmonary embolism. There is atherosclerotic calcification of the aortic arch with tortuosity. There is no demonstrated aortic dissection. Normal heart and pericardium. Normal mediastinum. Normal hilar regions. Normal visualized trachea and bronchi. The lungs are well expanded. Negative for major consolidation. Focal atelectasis or chronic changes at the base of the lingula. Negative for pleural effusion. Focal edema or contusion of the left abdominal wall. Recent trauma? Degenerative changes of the thoracic spine with increased kyphosis. Negative for fracture deformity. CT/CTA Chest W/WO Contrast IMPRESSION: Negative for pulmonary embolus. Atherosclerotic changes of the thoracic aorta without aneurysm or dissection. Negative for coronary calcifications. Negative for pericardial effusion. Focal atelectasis or chronic retraction of the base of the lingula. Otherwise negative for major consolidation or pleural effusion. Focal mass fluid accumulation/stranding of the subcutaneous layer of the upper left abdominal wall. Recent hematoma? Anasarca? No other acute findings in the upper abdomen. Degenerative changes of the spine. Negative for fracture. Electronically Signed: Makenzie Page MD at 17:43 EST , Service support , CC: Ron Warren MD; Mac Jaimes MD Siding Installer: Signed CBC W/DIFF, AUTOMATED Collected: 03/22/2018 Status: F Source: [place] 5:25 AM [facility] REPOSITORY TYPE CODE TESTS RESULT OUT OF RANGE REFERENCE UNITS LAB L100.1000 4.4-11.0 K/mm3 Normal WBC 7.3 LAB L100.1200 4.2-5.4 M/mm3 Low RBC 3.15 LAB L100.1300 12.0-15.0 g/dl Low HGB 9.6 LAB L100.1400 37-47 % Low HCT 30.3 LAB L100.1500 81-99 fL Normal MCV 96.2 LAB L100.1600 27.0-32.0 pg Normal MCH 30.5 LAB L100.1700 32-36 g/gl Low MCHC 31.7 LAB L100.1810 11.6-14.6 % High RDW CV 15.5 LAB L100.1820 35.1-43.9 fl High RDW SD 51.4 LAB L100.1900 150-450 K/mm3 Normal PLT 169 LAB L100.2000 6.2-12.0 fl Normal MPV 10.4 LAB L100.2100 47-70 % Normal NEUT% 65.4 LAB L100.2200 19-41 % Low LY% 18.9 LAB L100.2300 0-10 % High MONO% 10.2 LAB L100.2400 0-5 % Normal EO% 4.4 LAB L100.2500 0-1 % Normal BASO% 0.3 LAB L100.2550 0.0-0.9 % Normal IM GRAN % 0.800 Result Comment: IG% - Immature Granulocytes (promyelocytes, myelocytes and metamyelocytes) > 1% indicates that a LEFT SHIFT is Present. LAB L100.2620 2.0-7.7 X10 3/uL Normal Absolute Neut 4.7 LAB L100.2720 0.83-4.51 X10 3/ul Normal Absolute Lymph 1.37 Performed By: #### L100.0100 #### [facility] [address] [place], [address] OPERATIVE REPORT Observed: 03/22/2018 Status: F Source: [place] 1:11 AM [facility] REPOSITORY [facility] Medical Records Department [address] [place] [address] Operative Report 03/20/18 1905 MR#: [id number] Acct: [id number] Name: BELIA GILMORE Rep #: [id number] : 1940 77 From: Gage Dudley MD PCP: Ron Warren MD Status: DIS IN Y Location: MS3 [id number] Report of Operation Date of Procedure: 03/20/18 Pre-Operative Diagnosis: 1. Traumatic hematoma right gluteal area with extension onto proximal posterior thigh. 2. Fall from stairs. 3. [facility] use of anticoagulation. Post-Operative Diagnosis: 1. Traumatic submuscular hematoma right gluteal area with extension to ischial bone and onto proximal posterior thigh. 2. Fall from stairs. 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 Surgery/Procedure Performed:: Surgical preparation right gluteal and proximal posterior thigh area with incision and drainage and evacuation and excisional debridement traumatic submuscular hematoma with extension to ischial bone and onto proximal posterior thigh (180 cm2). Description of Surgical Findings:: The patient is a 77 year old F who presented to the ED yesterday after falling down a couple of stairs at home. She says that the fall was mechanical in nature, she was bringing a walker out of the attic and she missed a step. The walker was for her daughter's [id number]. This happened earlier in the morning and as the day progressed she had worsening pain and could not sit upright and would become lightheaded on occasion. When she presented to the ER she was found to have a large hematoma on her right buttock that was very firm and indurated with ecchymosis. She denies hitting her head. She states that she can move her toes and she can feel her legs. She currently takes Coumadin for her atrial fibrillation. She underwent a CT Pelvis on 03/17/18 which showed a soft tissue hematoma in the right buttock measuring approximately 8 x 8.5 cm. Swelling and edema of the right gluteus david is noted. Hgb on admission was 12.5. The next day the Hgb was 11.2. I was asked to evaluate this patient for surgical options for treatment. Patient was informed of the risks and complications of the procedure including alternatives to surgery. These were discussed with the patient personally. Patient voices understanding and wishes to proceed. Size of defect right gluteal area - 10 x 18 x 6 cm. oracle database developer: None Type of Anesthesia:: General Specimen's removed: Traumatic hematoma right gluteal area to Pathology. Drains: None. Estimated Blood Loss (mL): 450 ml. Description of Procedure: Patient was taken to OR in supine position and was placed under general anesthesia. She was then placed in the lateral position. The right gluteal and proximal posterior thigh area was prepped and draped in the usual fashion. SCD's were placed for DVT prophylaxis. Perioperative antibiotics were given intravenously. An oblique incision was made over the right gluteal area over the area of greatest firmness and induration. I dissected into the subcutaneous tissue. A large hematoma was noted. Some active bleeding seen from the gluteal muscle and cauterized. The gluteus muscle was moderately bruised. The hematoma extended in a submuscular position deep the the gluteus muscle all the way down to the ischial bone. There was also extension of the hematoma deep into the proximal posterior thigh. About 450 ml of blood loss was seen and most of it was blood clot from the hematoma. The wound was copiously irrigated with saline. The bruised gluteus muscle looked more viable after irrigation. Some bleeding points were cauterized for hemostasis. The overlying skin showed extensive ecchymosis with some skin necrosis. The nonviable skin and subcutaneous tissue was excised and debrided. Tissue was sent to Pathology for analysis. There was no evidence of infection and no evidence of necrotizing process at this time. So no culture was obtained. The size of the defect after incision and drainage and evacuation and excisional debridement of the hematoma was 10 x 18 x 6 cm or 180 cm2. The wound was then dressed with Mepitel nonadherent dressing followed by Kerlix gauze and Betadine followed by dry Kerlix gauze and ABD pads compression dressing. Patient tolerated the procedure well and was sent to PACU in satisfactory condition. Patient will be sent upstairs for continued postop care. The VAC will be placed tomorrow. Grafts/Implants Used: None. - Complications None. - Admit VTE Documentation VTE Present on Admission: No - Patient is on Coumadin for atrial fibrillation. VTE Mechan Device Prophylaxis: SCD's VTE Pharm Prophylaxis ordered?: Yes Code Visit Surgery Charges CPT - 19957 ICD-10 - S30.0xxA, S80.11xA, W19.xxxA, Z79.01 84377 S80.11xA, S30.0xxA, W19.xxxA, Z79.01 41920 S31.819A, S30.0xxA, S80.11xA, W19.xxxA, Z79.01 34871 S31.819A, S30.0xxA, S80.11xA, W19.xxxA, Z79.01 03/22/18 0111 <Electronically signed by Gage Dudley MD> Date Gage Dudley MD CC: James Flores DO; Gage Dudley MD; Hernando Decker DO; Nelson Urban MD; Ron Warren MD; [facility] Signed CONSULTATION Observed: 03/22/2018 Status: F Source: [place] 12:12 AM [facility] REPOSITORY [facility] Medical Records Department [address] [place] [address] Consultation 03/18/18 1222 MR#: [id number] Acct: [id number] Name: BELIA GILMORE Rep #: [id number] : 1940 77 From: Gage Dudley MD PCP: Ron Warren MD Status: DIS IN Y Location: MS3 [id number] Reason for Consult Date of Consultation: 03/18/18 Reason for Consultation: Traumatic hematoma right gluteal area. REFERRING PHYSICIAN: Dr. Decker. CUT TOBACCO BULKER: Dr. Dudley. History of Present Illness: The patient is a 77 year old F who presented to the ED yesterday after falling down a couple of stairs at home. She says that the fall was mechanical in nature, she was bringing a walker out of the attic and she missed a step. The walker was for her daughter's [id number]. This happened earlier in the morning and as the day progressed she had worsening pain and could not sit upright and would become lightheaded on occasion. When she presented to the ER she was found to have a large hematoma on her right buttock that was very firm and indurated with ecchymosis. She denies hitting her head. She states that she can move her toes and she can feel her legs. She currently takes Coumadin for her atrial fibrillation. She underwent a CT Pelvis on 03/17/18 which showed a soft tissue hematoma in the right buttock measuring approximately 8 x 8.5 cm. Swelling and edema of the right gluteus david is noted. Hgb on admission was 12.5. The next day the Hgb was 11.2. I was asked to evaluate this patient for surgical options for treatment. Past Medical History Past Medical History (Chronic Problems): Chronic Problems (Last Updated 03/21/18 @ 22:18 by Gage Dudley MD) Atrial fibrillation (Chronic) Hypothyroidism (Chronic) 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 (Chronic) Peptic ulcer disease (Chronic) Rheumatoid arthritis (Chronic) Gastrointestinal bleed (Chronic) Vitamin D deficiency (Chronic) Depression (Chronic) [facility] current use of anticoagulant (Chronic) DVT (deep venous thrombosis) (Chronic) right lower leg Hyperlipidemia (Chronic) Paroxysmal atrial fibrillation (Chronic) Medical History: Medical History (Last Updated 03/21/18 @ 22:18 by Gage Dudley MD) Vitamin D deficiency (Chronic) E55.9 DVT (deep venous thrombosis) (Chronic) I82.409 right lower leg Hyperlipidemia (Chronic) E78.5 Paroxysmal atrial fibrillation (Chronic) I48.0 Hypothyroidism E03.9 Immunosuppressed status D89.9 on Humira 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 M81.0 Peptic ulcer disease K27.9 Rheumatoid arthritis M06.9 Atrial fibrillation with RVR (Resolved) I48.91 Cellulitis of left lower extremity L03.116 GI bleed K92.2 History of Clostridium difficile (Inactive) Z87.19 Allergies cephalexin monohydrate [From Keflex] Allergy (Verified 03/17/18 18:05) Hives ethchlorvynol [From Placidyl] Allergy (Verified 03/17/18 18:05) Unknown NSAIDS (Non-Steroidal Anti-Inflamma Allergy (Verified 03/17/18 18:05) Unknown Penicillins [PCN] Allergy (Verified 03/17/18 18:05) Unknown Sulfa (Sulfonamide Antibiotics) Allergy (Verified 03/17/18 18:05) Rash sulfamethoxazole [From Septra] Allergy (Verified 03/17/18 18:05) Unknown trimethoprim [From Septra] Allergy (Verified 03/17/18 18:05) Unknown Current Medications Acetaminophen (Tylenol) 650 mg PO Q6H PRN Atorvastatin Calcium (Lipitor) 20 mg PO QHS [facility] Carvedilol (Coreg) 6.25 mg PO BID [facility] Cholecalciferol (Vitamin D) 5,000 unit PO QODAY [facility] Hydrochlorothiazide (Hctz) 25 mg PO QAM [facility] Levothyroxine Sodium (Synthroid) 100 mcg PO DAILY@0600 [facility] Magnesium Hydroxide (Milk Of Magnesia) 30 ml PO DAILY PRN Morphine Sulfate () 4 mg IV Q4H PRN Oxycodone HCl (Oxyir) 10 mg PO Q4H PRN Sertraline HCl (Zoloft) 100 mg PO DAILY ERIK Home Medications: Ambulatory Orders Medication Instructions Recorded Surgical History: Surgical History (Last Updated 09/26/17 @ 10:17 by Zoë Duke) H/O colectomy Z90.49 H/O shoulder surgery Z98.890 left H/O total hysterectomy Z90.710 History of arthroplasty of left knee Z96.652 History of bunionectomy of both great toes Z98.890 History of left heart catheterization Onset Date: [address] [facility] History of right knee joint replacement Z96.651 History of tonsillectomy and adenoidectomy Z98.890 Hx of cholecystectomy Z90.49 surgical debridement left lower extremity Onset Date: 10/2014 Psychiatric History: Anxiety, Depression FINANCIAL 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: No pertinent FINANCIAL SERVICES CONSULTANT history Smoking Status: Never smoker - *Family History Maternal Family History: Family History (Last Reviewed 08/26/17 @ 13:09 by Zoë Duke) Father CAD (coronary artery disease) Mother Breast cancer History Items: Cancer - mother had breast CA in her 90's, Unknown Paternal Family History: Family History (Last Reviewed 08/26/17 @ 13:09 by Zoë Duke) Father CAD (coronary artery disease) Mother Breast cancer History Items: Heart Disease, - - aneurysm in her father who from CAD and aneurym at 74 Sibling Family History: Family History (Last Reviewed 08/26/17 @ 13:09 by Zoë Duke) Father CAD (coronary artery disease) Mother Breast cancer History Items: Cancer - she had a brother with throat cancer, - - she had a sister with severe epilepsy who lived in [place] and Review of Systems Comment: Constitutional: Denies: Chills, Fever, Weight Change. HEENT: Denies: Head Aches, Sinus Congestion, Sinus Drainage. Cardiovascular: Denies: Chest Pain, Palpitations. Respiratory: Denies: Cough, Shortness of breath at rest, Sputum production. Gastrointestinal: Denies: Abdominal Pain, Nausea, Vomiting. Genitourinary: Denies: Dysuria. Musculoskeletal: Reports: Muscle pain - Gluteal. Denies: Joint Pain, Joint Tenderness. Skin: Denies: Rash, Wounds. Neurological: Denies: Numbness, Tingling, Focal weakness. Psychiatric: Denies: Anxiety, Depression. Hematologic/ Lymphatic: Denies: Easy Bruising, Easy Bleeding - Physical Exam General: Alert, Oriented x3. HEENT: PERRLA, EOMI. Neck: Supple, Nontender. No cervical adenopathy. Lungs: Clear to auscultation. Cardiovascular: Regular rate, Regular Rhythm. Abdomen: Soft, Non-Distended. Extremities: No edema, Capillary Refill Less than 3 Seconds, Tenderness over the right buttock where there is a large hematoma that is firm. Measures 10 cm. Skin: Large area of ecchymosis overlying right gluteal area with extension onto proximal posterior thigh. Neurological: CN II - XII grossly intact. Psych/Mental Status: Normal Affect, Appropriate Vital Signs Temp Pulse Resp BP Pulse Ox 97.5 F L 65 18 117/53 L 98 03/18/18 09:00 03/18/18 09:00 03/18/18 11:00 03/18/18 09:00 03/18/18 09:00 Oxygen Flow Rate (L/min) 2 Oxygen Delivery Method Room Air Weight: 187 lb 13.341 oz Body Mass Index (BMI) 32.2 Intake and Output for Last 24 Hours Intake Total 1450 / 1450 Output Total 300 / 300 Balance 1150 / 1150 Laboratory Tests Past 24 Hrs WBC 14.1 H WBC 12.7 H RBC 3.55 L Hgb 11.2 L Hct 34.9 L MCV 98.3 MCH 31.5 MCHC 32.1 RDW 13.1 RDW Differential 47.3 H Diagnostic Data Lumbar Spine CT 03/17/18 18:35 IMPRESSION: 1. Suspected acute L3 fracture without significant loss of vertebral body height. 2. Noncompressive L5-S1 disc protrusion. Electronically Signed: Nancy Bryant MD at 20:06 EST Tel , Service support , Pelvis CT 03/17/18 18:35 IMPRESSION: Suspected L3 fracture. Large right buttock hematoma. Electronically Signed: Nancy Bryant MD at 20:17 EST Tel , Service support , Assessment/Plan All Active Problems (Last Updated 03/21/18 @ 22:18 by Gage Dudley MD) Traumatic hematoma of buttock (Acute) Hematoma of right lower extremity (Acute) Compression fracture of L3 vertebra (Acute) Fall (Acute) Hematoma (Acute) Acute blood loss anemia (Acute) Atrial fibrillation with RVR (Resolved) Cellulitis and abscess of leg (Resolved) Influenza B (Resolved) Influenzal bronchiolitis (Resolved) 1. Traumatic hematoma right gluteal area with extension onto proximal posterior thigh. 2. Fall from stairs. 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 CT Pelvis reviewed. It shows a large hematoma on her right gluteal area. Measures 8 x 8.5 cm. There is some firmness that extends off the gluteal crease onto the proximal posterior thigh. It appears to be too large to absorb completely on its own before getting infected. Will closely monitory Hgb daily. At present it is 11.2. Recommend surgical preparation right gluteal area with extension onto proximal posterior thigh with incision and drainage and evacuation and excisional debridement. Would leave the wound open and proceed with postop wound care with the VAC. After discharge, can followup at the [facility]. If there is a plateau in the healing process, can proceed with delayed closure with skin grafting. Her INR today is 3.0. Would like to see it decreased close to the 2 range before proceeding with surgery unless there is clinical evidence of expansion of the hematoma combined with dramatic drop in Hgb in which case a more urgent operative intervention would be necessary. Otherwise if she remains stable, will consider operative intervention on Tuesday or Tuesday. To minimize infection of the hematoma, will start Doxycycline. At the time of surgery, will add Cleocin. Anticipate increased metabolic demands from the surgery. Will check a Prealbumin and encourage nutritional supplementation with protein to help the healing process. Patient was informed of the risks and complications of the procedure including alternatives to surgery. These were discussed with the patient personally. Patient voices understanding and wishes to proceed. Code Visit Inpatient E AND M: 51770 Init Hosp L2 - ICD-10 - S30.0xxA, S80.11xA, W19.xxxA, Z79.01 03/22/18 0012 <Electronically signed by Gage Dudley MD> Date Gage Dudley MD Cosigner Signature (if applicable): Date CC: James Flores DO; Gage Dudley MD; Hernando Decker DO; Nelson Urban MD; Ron Warren MD; [facility] Signed HISTORY AND PHYSICAL Observed: 03/21/2018 Status: F Source: [place] EXAM 8:42 PM [facility] REPOSITORY [facility] Medical Records Department [address] [place] [address] History and Physical 03/21/182019 MR#: [id number] Acct: [id number] Name: BELIA GILMORE Rep #: [id number] : 1940 77 From: Mac Jaimes MD PCP: Ron Warren MD Status: ADM IN Location: [place] [address] Problem List (1) Atrial fibrillation Status: Chronic (2) Hypothyroidism Status: Chronic (3) 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 Status: Chronic (4) Peptic ulcer disease Status: Chronic (5) Rheumatoid arthritis Status: Chronic (6) Gastrointestinal bleed Status: Chronic (7) Vitamin D deficiency Status: Chronic (8) Depression Status: Chronic (9) Acute blood loss anemia Status: Acute (10) Compression fracture of L3 vertebra Status: Acute (11) DVT (deep venous thrombosis) Status: Chronic Comment: right lower leg (12) Fall Status: Acute (13) Hematoma Status: Acute (14) Hyperlipidemia Status: Chronic Qualifiers: History of Present Illness Date of Admission: 03/21/18 Chief Complaint: Here for rehabilitation, strengthening, wound care, prior to discharge home with spouse. The patient is a 77 year old Female with below past medical history presented to [facility] Emergency Department 03/17/2018 with fall. 03/17/2018 CT spine L3 compression fracture, L5-S1 disc protrusion. 03/17/2018 CT pelvis L3 fracture, large right buttock hematoma. Fell down stairs, fell onto right buttock, right side. Pain lower back, Right buttock, radiating down right leg. Patient on warfarin. WBC 14, INR 3.1, CK okay. 03/17/2018 Admit to Hospital. Used to be on Eliquis until rectal bleed, then back on warfarin so it could be monitored. Hold warfarin. Monitor right buttock hematoma. 03/18/2018 CT brain chronic involutional changes. 03/20/2018 Dr. Dudley incised and drained right gluteal hematoma with extension to ischial bone. Wound VAC applied. L3 compression fracture treated with supportive care. Encephalopathy secondary to opioid pain medications improved. Transfused 2 units PRBC, post transfusion hemoglobin 9.7. 03/21/2018 Admit to TCU with debility, here for rehabilitation, strengthening, wound care prior to discharge home with spouse. 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) DVT (deep venous thrombosis) (Chronic) right lower leg Hyperlipidemia (Chronic) Paroxysmal atrial fibrillation (Chronic) Medical History: Medical History (Last Reviewed 08/26/17 @ 13:09 by Zoë Duke) DVT (deep venous thrombosis) (Chronic) I82.409 right lower leg Hyperlipidemia (Chronic) E78.5 Paroxysmal atrial fibrillation (Chronic) I48.0 Hypothyroidism E03.9 Immunosuppressed status D89.9 on Humira 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 M81.0 Peptic ulcer disease K27.9 Rheumatoid arthritis M06.9 Atrial fibrillation with RVR (Resolved) I48.91 Cellulitis of left lower extremity L03.116 GI bleed K92.2 History of Clostridium difficile (Inactive) Z87.19 Allergies cephalexin monohydrate [From Keflex] Allergy (Verified 03/17/18 18:05) Hives ethchlorvynol [From Placidyl] Allergy (Verified 03/17/18 18:05) Unknown NSAIDS (Non-Steroidal Anti-Inflamma Allergy (Verified 03/17/18 18:05) Unknown Penicillins [PCN] Allergy (Verified 03/17/18 18:05) Unknown Sulfa (Sulfonamide Antibiotics) Allergy (Verified 03/17/18 18:05) Rash sulfamethoxazole [From Septra] Allergy (Verified 03/17/18 18:05) Unknown trimethoprim [From Septra] Allergy (Verified 03/17/18 18:05) Unknown Home Medications: Ambulatory Orders Medication Instructions Recorded Surgical History: Surgical History (Last Updated 09/26/17 @ 10:17 by Zoë Duke) H/O colectomy Z90.49 H/O shoulder surgery Z98.890 left H/O total hysterectomy Z90.710 History of arthroplasty of left knee Z96.652 History of bunionectomy of both great toes Z98.890 History of left heart catheterization Onset Date: [address] [facility] History of right knee joint replacement Z96.651 History of tonsillectomy and adenoidectomy Z98.890 Hx of cholecystectomy Z90.49 surgical debridement left lower extremity Onset Date: 10/2014 Surgical History: adenoidectomy, cholecystectomy, colectomy, hysterectomy, total knee arthroplasty - Bilateral, tonsillectomy, - - Shoulder surgery, bilateral bunionectomy, left heart cath, left lower extremity surgical debridement(hematoma). Psychiatric History: Anxiety, Depression FINANCIAL 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: No pertinent FINANCIAL SERVICES CONSULTANT history Lives: Spouse/ Significant Other Smoking Status: Never smoker Tobacco Use: Non-smoker Alcohol: None Drugs: None - *Family History Maternal Family History: Family History (Last Reviewed 08/26/17 @ 13:09 by Zoë Duke) Father CAD (coronary artery disease) Mother Breast cancer History Items: Cancer - mother had breast CA in her 90's, Unknown Paternal Family History: Family History (Last Reviewed 08/26/17 @ 13:09 by Zoë Duke) Father CAD (coronary artery disease) Mother Breast cancer History Items: Heart Disease, - - aneurysm in her father who from CAD and aneurym at 74 Sibling Family History: Family History (Last Reviewed 08/26/17 @ 13:09 by Zoë Duke) Father CAD (coronary artery disease) Mother Breast cancer History Items: Cancer - she had a brother with throat cancer, - - she had a sister with severe epilepsy who lived [place] and Review of Systems Constitutional: Denies: Chills, Fever, Weight Change HEENT: Denies: Head Aches, Sinus Congestion, Sinus Drainage Cardiovascular: Denies: Chest Pain, Palpitations Respiratory: Denies: Cough, Shortness of breath at rest, Sputum production Gastrointestinal: Denies: Abdominal Pain, Nausea, Vomiting Genitourinary: Denies: Dysuria Musculoskeletal: Denies: Joint Pain, Joint Tenderness Skin: Denies: Rash, Wounds Neurological: Denies: Numbness, Tingling, Focal weakness Psychiatric: Denies: Anxiety, Depression, Homicidal Ideations, Suicidal Ideations Hematologic/ Lymphatic: Denies: Easy Bruising, Easy Bleeding VTE Information - Inpt Only VTE Present on Admission: No VTE Mechan Device Prophylaxis: SCD's VTE Pharm Prophylaxis ordered?: No Reason prophylaxis not ordered:: Medical Contraindication - Physical Exam General: Alert, Oriented x3, Cooperative HEENT: Atraumatic, PERRLA, EOMI, Normocephalic Neck: Supple, No JVD, Negative Carotid Bruits Lungs: Clear to auscultation, Normal air movement Cardiovascular: Regular rate, No murmurs Abdomen: Bowel Sounds Present, Soft, Non Tender Extremities: No edema, Capillary Refill Less than 3 Seconds Skin: No rashes, No breakdown, Incision - Right buttock wound with wound vac dressing. Musculoskeletal: No Tenderness to Palpation of Joints or Extremities Neurological: Cranial nerves II-XII grossly intact Psych/Mental Status: Normal Affect, Appropriate Vital Signs Temp Pulse Resp BP Pulse Ox 98.5 F 59 L 16 123/75 H 95 03/21/18 16:14 03/21/18 16:14 03/21/18 16:14 03/21/18 16:14 03/21/18 16:14 Oxygen Delivery Method Room Air Weight: 86.8 kg Body Mass Index (BMI) 32.8 Intake and Output for Last 24 Hours Intake Total 240 / 240 Balance 240 / 240 Assessment/Plan All Active Problems (Last Reviewed 08/26/17 @ 13:09 by Zoë Duke) Compression fracture of L3 vertebra (Acute) Fall (Acute) Hematoma (Acute) Acute blood loss anemia (Acute) Atrial fibrillation with RVR (Resolved) Cellulitis and abscess of leg (Resolved) Influenza B (Resolved) Influenzal bronchiolitis (Resolved) 77 year old female with below past medical history hospitalized for fall, right buttock hematoma requiring I+D with wound vac per Dr. Dudley 03/20/2018, complicated by L3 compression fracture, acute blood loss anemia requiring transfusion, encephalopathy secondary to opioid pain medications, admitted to TCU with debility, here for rehabilitation, strengthening, wound care, prior to discharge home with spouse. * Debility - PT/OT. * Pain - Tylenol 1000MG Q6H PRN mild pain, Fentanyl patch 12MCG TD Q3 days, Oxycodone 5MG Q4H PRN severe pain. * Bowel - Miralax 17GM daily, Senna/colace 2 tablets BID, Dulcolax 10MG po daily PRN. * Pneumonia vaccination - Administer Prevnar 13 and/or Pneumovax 23 as necessary. * DVT prophylaxis - wound vac drainage bloody, will resume anticoagulation once drainage non bloody, Sequential Compression Devices for now. * Hyperlipidemia - Atorvastatin 20MG QHS. * Atrial Fibrillation - Coreg 6.25MG BID, resume anticoagulation with warfarin/Lovenox once right buttock bleeding stopped. * Right buttock wound - Wound Vac, Wound Team, Doxycycline 100MG BID thru 03/31/2018. * Nutrition - Ensure 120ML 4x/day, Mayda 1 packet twice daily. * Hypertension - Coreg 6.25MG BID, HCTZ 25MG daily. * Hypothyroidism - Levothyroxine 100MCG daily. * Depression - Sertraline 100MG daily, resident doing well with chronic shelter use, GDR clinically contraindicated. * L3 compression fracture - Pain control as above. 03/21/182041 <Electronically signed by Mac Jaimes MD> Date Mac Jaimes MD Cosigner Signature: Date (if applicable) CC: Ron Warren MD; Mac Jaimes MD Signed DISCHARGE SUMMARY Observed: 03/21/2018 Status: F Source: [place] 2:53 PM [facility] REPOSITORY [facility] Medical Records Department [address] [place] [address] Discharge Summary 03/21/18 1447 MR#: [id number] Acct: [id number] Name: BELIA GILMORE Rep #: [id number] : 1940 77 From: James Flores DO PCP: Ron Warren MD Status: ADM IN Y Location: FL3 [id number] Discharge Date and Diagnosis - Problem List Patient Problems: Active and Suspected Problems (Last Reviewed 08/26/17 @ 13:09 by Zoë Duke) Compression fracture of L3 vertebra (Acute) Fall (Acute) Hematoma (Acute) Acute blood loss anemia (Acute) Date of Admission: 03/17/18 Date of Discharge: 03/21/18 - Primary Discharge Diagnosis Active and Suspected Problems (Last Reviewed 08/26/17 @ 13:09 by Zoë Duke) Fall (Acute) Hematoma (Acute) Acute blood loss anemia (Acute) - Secondary Discharge Diagnosis Chronic Problems (Last Reviewed 08/26/17 @ 13:09 by Zoë Duke) [facility] current use of anticoagulant (Chronic) DVT (deep venous thrombosis) (Chronic) right lower leg Hyperlipidemia (Chronic) Paroxysmal atrial fibrillation (Chronic) Hospital Course and Treatment Imaging Results: Clinical Impression(s) from Imaging Studies Lumbar Spine CT 03/17/18 18:35 IMPRESSION: 1. Suspected acute L3 fracture without significant loss of vertebral body height. 2. Noncompressive L5-S1 disc protrusion. Electronically Signed: Nancy Bryant MD at 20:06 EST Tel , Service support , Pelvis CT 03/17/18 18:35 IMPRESSION: Suspected L3 fracture. Large right buttock hematoma. Electronically Signed: Nancy Bryant MD at 20:17 EST Tel , Service support , Brain CT 03/18/18 12:24 IMPRESSION: Chronic involutional changes without evidence of acute intracranial or calvarial abnormality. Electronically Signed: Adrian Crawford DO at 13:34 EST Tel [phone], Service support , Consultations 03/21/18 07:32 Consult: Onc/Wound/line erector apprentice Routine Comment: Reason for Consult:: wound vac application Gage Dudley MD. Operations: - - Surgical preparation right gluteal area with incision and drainage and evacuation and excisional debridement traumatic submuscular hematoma with extension to ischial bone (180 cm2). Summary of Care Provided: The patient is a 77 year old F presents after a falling down stairs at home. Developed a right buttock hematoma from the fall, but complicated by coumadin. Initial INR was 3.1. Patient underwent I+D and evacuation on 03/20. Wound vac placed. Patient discharged to TCU in stable condition and will continue with wound care. 1. right hip hematoma * traumatic and on coumadin. * POD #1 for I AND D and evacuation. Debridnet with extension to ischial bone. * wound vac and wound care 2. L3 vertebral fracture * supportive mgmt 3. toxic encephalopathy * 2/2 medications * will reassess after surgery * discussed with her dtr about pain control and function. 4. DVT proph SCDs. 5. pAfib * rate-controlled * coumadin held d/t #1, resume when ok with PRS 6. Acute blood loss anemia * Hg 11.2 to 7.7 * transfused 2 units PRBCs on 03/20, now 9.7 * no need for additional transfusions at this time * D/T # 1[] Patient Problems: Active and Suspected Problems (Last Reviewed 08/26/17 @ 13:09 by Zoë Duke) Compression fracture of L3 vertebra (Acute) Fall (Acute) Hematoma (Acute) Acute blood loss anemia (Acute) - Physical Exam Vital Signs Temp Pulse Resp BP Pulse Ox 36.4 C L 53 L 18 134/49 H 97 03/21/18 08:30 03/21/18 08:30 03/21/18 08:30 03/21/18 08:30 03/21/18 08:30 Oxygen Flow Rate (L/min) 2 Oxygen Delivery Method Room Air Weight: 85.2 kg Body Mass Index (BMI) 32.2 Intake and Output for Last 24 Hours Intake Total 1160 / 1160 2760 / 2760 2178 / 2178 Output Total 300 / 300 1400 / 1400 1275 / 1275 Balance 860 / 860 1360 / 1360 903 / 903 Laboratory Tests Past 24 Hrs WBC 8.5 RBC 3.07 L Home Medications: Medications to take at Discharge Atorvastatin Calcium [Lipitor] 20 mg PO QHS 10/17/14 Ergocalciferol [Vitamin D] 5,000 unit PO QODAY 10/17/14 Levothyroxine [Synthroid] 100 mcg PO DAILY 10/17/14 Sertraline HCl [Zoloft] 100 mg PO DAILY 10/17/14 Acetaminophen [Tylenol Tablet] 650 mg PO Q6H PRN PRN tab 07/13/17 Carvedilol 6.25 mg PO BID 03/17/18 Hydrochlorothiazide [Hctz] 25 mg PO QAM 03/17/18 Carvedilol [Coreg (Beta Jack)] 6.25 mg PO BID tablet 03/21/18 Doxycycline 100 mg PO BID #10 capsule 03/21/18 Ensure Enlive 120 ml PO 4X/DAY liquid 03/21/18 Oxycodone [Oxyir] 5 mg PO Q6H PRN 3 Days #18 tab 03/21/18 fentaNYL patch [Duragesic Patch] 12 mcg TRANSDERM. Q3D 3 Days #1 patch 03/21/18 Following Prescrptions Were Given to Patient: fentaNYL patch [Duragesic Patch] 12 mcg TRANSDERM. Q3D 3 Days #1 patch Oxycodone [Oxyir] 5 mg PO Q6H PRN 3 Days #18 tab PRN Reason: Severe Pain (-01/18) Primary Care Physician: Ron Warren MD [Primary Care Provider] - Within 2 Weeks Please Follow Up With: Gage Dudley MD When: 1 week Medical Necessity - Tobacco Use Smoking Status: Never smoker Meaningful Use Info Meaningful Use Diagnoses (Choose all that apply): None applicable Code Visit Inpatient E AND M: 36430 Disch Hosp 03/21/18 1453 <Electronically signed by James Flores DO> Date James Flores DO Cosigner Signature (if applicable): Date CC: James Flores DO; Ron Warren MD Signed TRANSFER TO [facility] Observed: 03/21/2018 Status: F Source: [facility] 2:44 PM [facility] REPOSITORY [facility] Medical Records Department [address] [place] [address] [facility] Care MR#: [id number] Acct: [id number] Name: BELIA GILMORE Rep #: [id number] : 1940 77 From: James Flores DO PCP: Ron Warren MD Status: ADM IN BELIA GILMORE (Patient) (Health Ins. Claim No.) (Day of Discharge to Facility) Certification of patient admission REQUIRED AT TIME OF ADMISSION. I CERTIFY THAT POST-HOSPITAL ECF SERVICES ARE REQUIRED TO BE GIVEN ON AN IN-PATIENT BASIS BECAUSE OF THE ABOVE NAMED PATIENT'S NEED FOR SENIOR LIVING CARE ON A CONTINUING BASIS FOR THE CONDITION(S) FOR WHICH HE/SHE WAS RECEIVING IN-PATIENT HOSPITAL SERVICES PRIOR TO HIS/HER TRANSFER TO THE ECF. 03/21/18 1444 <Electronically signed by James Flores DO> Date James Flores DO - Diet 03/20/18 16:45 Diet: Regular Diet Type of Dietary Supplement:: Mayda (Diagonal) Is pt able to select menu?: Yes - Routine Orders/Code Status Routine Lab Work: CBC, BMP Code Status: Full Code - Wound(s) RIGHT BUTTOCK Wound Type: open surgical wound s/p excision hematoma Dressing Change: applied KCI wound VAC LEFT JEFFERSON Wound Type: Abrasion RIGHT KNEE Wound Type: Abrasion - Therapies Physical Therapy: Eval and Treat Occupational Therapy: Eval and Treat - Allergies/Procedures Done in Hospital Allergies/Adverse Reactions: Allergies cephalexin monohydrate [From Keflex] Allergy (Verified 03/17/18 18:05) Hives ethchlorvynol [From Placidyl] Allergy (Verified 03/17/18 18:05) Unknown NSAIDS (Non-Steroidal Anti-Inflamma Allergy (Verified 03/17/18 18:05) Unknown Penicillins [PCN] Allergy (Verified 03/17/18 18:05) Unknown Sulfa (Sulfonamide Antibiotics) Allergy (Verified 03/17/18 18:05) Rash sulfamethoxazole [From Septra] Allergy (Verified 03/17/18 18:05) Unknown trimethoprim [From Decra] Allergy (Verified 03/17/18 18:05) Unknown Procedures: - - Right buttocks incision and drainage and evacuation. - Type of Care/Length of Stay Estimated LOS: Convalescent Care Less Than 30 days Type of Care Needed: Skilled Rehab Potential: Fair Prognosis: Fair - Additional Orders/Day of Discharge Day of Discharge: 03/21/18 - Dietary and Speech Recommendations Dietitian Recommendations/Changes: Rec diet change to Cardiac d/t pmhx and BMI. Please order MAYDA BID FROM PHARMACY. Will order ensure enlive 120 cc 4x/day to help w/ healing - Follow Up Care Primary Care Physician: Ron Warren MD [Primary Care Provider] - Within 2 Weeks Please Follow Up With: Gage Dudley MD When: 1 week 03/21/18 1444 <Electronically signed by James Flores DO> Date James Flores DO CC: Gage Dudley MD; Ron Warren MD Signed 12 LEAD ELECTROCARDIOGRAM Observed: 03/21/2018 Status: F Source: [place] 9:05 AM [facility] REPOSITORY [facility] Cardiovascular Services [address] [place] [id number] 12 Lead EKG 03/20/18 0528 MR#: [id number] Acct: [id number] Name: BELIA GILMORE Rep #: [id number] : 1940 77 From: Davidson Felder MD Attending Dr: James Flores DO Status: ADM IN Ordering Dr: Bob Peng MD Date: 03/20/18 Location: FL3 Sex: F C Admitted: 03/17/18 Test Reason : AM Blood Pressure : / mmHG Vent. Rate : 063 BPM Atrial Rate : 063 BPM P-R Int : 140 ms QRS Dur : 072 ms QT Int : 410 ms P-R-T Axes : 040 001 060 degrees QTc Int : 419 ms Normal sinus rhythm Nonspecific T wave abnormality Abnormal ECG When compared with ECG of 11-JUL-2017 19:47, Inverted T waves have replaced nonspecific T wave abnormality in Anterior leads Confirmed by BRADFODR LOWERY, DAVIDSON ([id number]), deputy editor in chief LUCI DE LA O ([id number]) on 03/21/2018 9:06:41 AM Referred By: THIAGO Confirmed By:DAVIDSON FELDER MD 03/21/18 0906 Date Davidson Felder MD CC: Bob Peng MD; James Flores DO; Ron Warren MD Signed CBC W/DIFF, AUTOMATED Collected: 03/21/2018 Status: F Source: [place] 6:10 AM [facility] REPOSITORY TYPE CODE TESTS RESULT OUT OF RANGE REFERENCE UNITS LAB L100.1000 4.4-11.0 K/mm3 Normal WBC 8.5 LAB L100.1200 4.2-5.4 M/mm3 Low RBC 3.07 LAB L100.1300 12.0-15.0 g/dl Low HGB 9.7 LAB L100.1400 37-47 % Low HCT 29.3 LAB L100.1500 81-99 fL Normal MCV 95.4 LAB L100.1600 27.0-32.0 pg Normal MCH 31.6 LAB L100.1700 32-36 g/gl Normal MCHC 33.1 LAB L100.1810 11.6-14.6 % High RDW CV 15.9 LAB L100.1820 35.1-43.9 fl High RDW SD 52.4 LAB L100.1900 150-450 K/mm3 Low PLT 145 LAB L100.2000 6.2-12.0 fl Normal MPV 9.9 LAB L100.2100 47-70 % High NEUT% 73.4 LAB L100.2200 19-41 % Low LY% 13.8 LAB L100.2300 0-10 % Normal MONO% 9.7 LAB L100.2400 0-5 % Normal EO% 2.3 LAB L100.2500 0-1 % Normal BASO% 0.1 LAB L100.2550 0.0-0.9 % Normal IM GRAN % 0.700 Result Comment: IG% - Immature Granulocytes (promyelocytes, myelocytes and metamyelocytes) > 1% indicates that a LEFT SHIFT is Present. LAB L100.2620 2.0-7.7 X10 3/uL Normal Absolute Neut 6.2 LAB L100.2720 0.83-4.51 X10 3/ul Normal Absolute Lymph 1.18 Performed By: #### L100.0100 #### [facility] [address] [place], [place], [address] PROTHROMBIN TIME W/INR Collected: 03/21/2018 Status: F Source: [place] 6:10 AM [facility] REPOSITORY TYPE CODE TESTS RESULT OUT OF RANGE REFERENCE UNITS LAB L300.4150 11.7-14.9 SECONDS Normal PROTIME 14.8 LAB L300.4200 Normal INR 1.2 Performed By: #### L300.3900 #### [facility] [address] [place], [address] BASIC METABOLIC Collected: 03/21/2018 Status: F Source: [place] PROFILE (BMP) 6:10 AM [facility] REPOSITORY TYPE CODE TESTS RESULT OUT OF RANGE REFERENCE UNITS LAB L501.0100 74-106 mg/dL Normal GLU 98 Result Comment: Please note revised GLUCOSE reference range effective 2017. LAB L501.1000 7-18 mg/dL High BUN 21 LAB L501.1100 0.55-1.02 mg/dL Normal CREAT,SERUM 1.01 Result Comment: The validity of the calculated GFR AND GFRAA in patients over 70 years has not been determined. Clinical correlation is essential. LAB L501.1110 >60 mL/min Low EST GFR 57 Result Comment: Non- GFR Calc LAB L501.1115 >60 mL/min Normal EST GFR - AA 68 Result Comment: GFR Calc LAB L501.1255 ml/min Normal Estimated CRCL 40.92 LAB L501.1300 10-20 RATIO High BUN/CRE 20.8 LAB L501.2200 8.5-10 mg/dL Low .1 CA 8.3 LAB L501.5300 136-14 mmol/L Normal 5 NA 141 LAB L501.5600 3.5-5. mmol/L Normal 1 K 4.0 LAB L501.5900 98-107 mmol/L Normal CL 103 LAB L501.6100 21.0-3 mmol/L Normal 2.0 CO2 30.0 LAB L501.6200 5-15 Normal GAP 8 Performed By: #### L500.2500 #### [facility] [address] [place], [place], [address] CBC-COMPLETE BLOOD CNT Collected: 03/20/2018 Status: F Source: [place] NO DIFF 5:08 PM [facility] REPOSITORY TYPE CODE TESTS RESULT OUT OF RANGE REFERENCE UNITS LAB L100.1000 4.4-11.0 K/mm3 Normal WBC 7.9 LAB L100.1200 4.2-5.4 M/mm3 Low RBC 2.83 LAB L100.1300 12.0-15.0 g/dl Low HGB 9.0 LAB L100.1400 37-47 % Low HCT 27.4 LAB L100.1500 81-99 fL Normal MCV 96.8 LAB L100.1600 27.0-32.0 pg Normal MCH 31.8 LAB L100.1700 32-36 g/gl Normal MCHC 32.8 LAB L100.1810 11.6-14.6 % Normal RDW CV 14.0 LAB L100.1820 35.1-43.9 fl High RDW SD 46.7 LAB L100.1900 150-450 K/mm3 Low PLT 135 LAB L100.2000 6.2-12.0 fl Normal MPV 10.5 Performed By: #### L100.0500 #### [facility] [address] [place], [place], [address] BASIC METABOLIC Collected: 03/20/2018 Status: F Source: [place] PROFILE (BMP) 5:08 PM [facility] REPOSITORY TYPE CODE TESTS RESULT OUT OF RANGE REFERENCE UNITS LAB L501.0100 74-106 mg/dL Normal GLU 105 Result Comment: Fasting Glucose result from 100 to 125 mg/dL suggests IMPAIRED HOMEOSTASIS per A.D.A. criteria. Please note revised GLUCOSE reference range effective 2017. LAB L501.1000 7-18 mg/dL High BUN 20 LAB L501.1100 0.55-1.02 mg/dL Normal CREAT,SERUM 0.94 Result Comment: The validity of the calculated GFR AND GFRAA in patients over 70 years has not been determined. Clinical correlation is essential. LAB L501.1110 >60 mL/min Normal EST GFR 62 Result Comment: Non- GFR Calc LAB L501.1115 >60 mL/min Normal EST GFR - AA 75 Result Comment: GFR Calc LAB L501.1255 ml/min Normal Estimated CRCL 43.97 LAB L501.1300 10-20 RATIO High BUN/CRE 21.4 LAB L501.2200 8.5-10 mg/dL Low .1 CA 8.2 LAB L501.5300 136-14 mmol/L Normal 5 NA 141 LAB L501.5600 3.5-5. mmol/L Normal 1 K 3.7 LAB L501.5900 98-107 mmol/L Normal CL 104 LAB L501.6100 21.0-3 mmol/L Normal 2.0 CO2 28.0 LAB L501.6200 5-15 Normal GAP 9 Performed By: #### L500.2500, L506.0500 #### [facility] [address] [place], [place], [address] PREALBUMIN Collected: 03/20/2018 Status: F Source: [place] 5:08 PM [facility] REPOSITORY TYPE CODE TESTS RESULT OUT OF RANGE REFERENCE UNITS LAB L506.0500 20.0-40.0 mg/dL Normal PREALBUMIN 25.2 Performed By: #### L500.2500, L506.0500 #### [facility] [address] [place], [address] TYPE AND SCREEN Collected: 03/20/2018 Status: F Source: [place] 12:05 PM [facility] REPOSITORY Order Comment: CMV NEG? N Number of units to transfuse: 2 Comments: evacuation of traumatic hematoma Is there a >20% drop in pt's BP? N Is the pt's CVP (central venous pressure) <3 cm/H2O? N Is the EBL >/= 1000ml in adults or >/= 12ml/kg in children? N Is there an orthostatic change in pt's BP(SBP drop >10mmHg)? N Is pt's HR > 100 bpm? N Reason for Ordering Blood: Acute Are the blood/blood products to be transfused? Y Is the patient having/had surgery? Y Anticipated time of surgery: 1500 Give When? When Ready Irradiated? N Leukodepleted? Y Surgery Date: 03/20/18 Type of Surgery: OTHER TYPE CODE TESTS RESULT OUT OF RANGE REFERENCE UNITS LAB B10.0800 A Normal BLOOD TYPE GEL POSITIVE LAB B100.4000 Normal Antibody NEGATIVE Screen Performed By: #### B101.7450 #### [facility] [place], [address] Collected: 03/20/2018 Status: F Source: [place] 12:05 PM [facility] REPOSITORY TYPE CODE TESTS RESULT OUT OF REFERENCE UNITS RANGE LAB U100.0000 [id number] TRANSFUSED PRODUCT: T AND S with Crossmatch, Red Cells COUNT: 2 Performed By: #### U100.0000 #### [facility] - refer to report for specific site CBC W/DIFF, AUTOMATED Collected: 03/20/2018 Status: F Source: [place] 5:06 AM [facility] REPOSITORY TYPE CODE TESTS RESULT OUT OF RANGE REFERENCE UNITS LAB L100.1000 4.4-11.0 K/mm3 Normal WBC 7.5 LAB L100.1200 4.2-5.4 M/mm3 Low RBC 2.39 LAB L100.1300 12.0-15.0 g/dl Low HGB 7.7 LAB L100.1400 37-47 % Low HCT 23.7 LAB L100.1500 81-99 fL High MCV 99.2 LAB L100.1600 27.0-32.0 pg High MCH 32.2 LAB L100.1700 32-36 g/gl Normal MCHC 32.5 LAB L100.1810 11.6-14.6 % Normal RDW CV 12.4 LAB L100.1820 35.1-43.9 fl Normal RDW SD 42.0 LAB L100.1900 150-450 K/mm3 Normal PLT 151 LAB L100.2000 6.2-12.0 fl Normal MPV 10.0 LAB L100.2100 47-70 % High NEUT% 70.8 LAB L100.2200 19-41 % Low LY% 15.5 LAB L100.2300 0-10 % High MONO% 12.1 LAB L100.2400 0-5 % Normal EO% 0.7 LAB L100.2500 0-1 % Normal BASO% 0.1 LAB L100.2550 0.0-0.9 % Normal IM GRAN % 0.800 Result Comment: IG% - Immature Granulocytes (promyelocytes, myelocytes and metamyelocytes) > 1% indicates that a LEFT SHIFT is Present. LAB L100.2620 2.0-7.7 X10 3/uL Normal Absolute Neut 5.3 LAB L100.2720 0.83-4.51 X10 3/ul Normal Absolute Lymph 1.17 Performed By: #### L100.0100 #### [facility] [address] [place], [address] PROTHROMBIN TIME W/INR Collected: 03/20/2018 Status: F Source: [place] 5:06 AM [facility] REPOSITORY TYPE CODE TESTS RESULT OUT OF RANGE REFERENCE UNITS LAB L300.4150 11.7-14.9 SECONDS High PROTIME 15.2 LAB L300.4200 Normal INR 1.2 Performed By: #### L300.3900, L300.4310 #### [facility] [address] [place], [address] PARTIAL THROMBOPLAST Collected: 03/20/2018 Status: F Source: [place] TIME 5:06 AM [facility] REPOSITORY TYPE CODE TESTS RESULT OUT OF REFERENCE UNITS RANGE LAB L300.4310 24.1-36.2 Seconds Low PTT 23.4 Performed By: #### L300.3900, L300.4310 #### [facility] [address] [place], [address] BASIC METABOLIC Collected: 03/20/2018 Status: F Source: [place] PROFILE (BMP) 5:06 AM [facility] REPOSITORY TYPE CODE TESTS RESULT OUT OF RANGE REFERENCE UNITS LAB L501.0100 74-106 mg/dL High GLU 126 Result Comment: Fasting Glucose result greater than or equal to 126 mg/dL suggests DIABETES MELLITUS per A.D.A. criteria. Please note revised GLUCOSE reference range effective 2017. LAB L501.1000 7-18 mg/dL High BUN 23 LAB L501.1100 0.55-1.02 mg/dL Normal CREAT,SERUM 1.01 Result Comment: The validity of the calculated GFR AND GFRAA in patients over 70 years has not been determined. Clinical correlation is essential. LAB L501.1110 >60 mL/min Low EST GFR 57 Result Comment: Non- GFR Calc LAB L501.1115 >60 mL/min Normal EST GFR - AA 68 Result Comment: GFR Calc LAB L501.1255 ml/min Normal Estimated CRCL 40.92 LAB L501.1300 10-20 RATIO High BUN/CRE 22.8 LAB L501.2200 8.5-10 mg/dL Low .1 CA 8.1 LAB L501.5300 136-14 mmol/L Normal 5 NA 141 LAB L501.5600 3.5-5. mmol/L Normal 1 K 4.3 LAB L501.5900 98-107 mmol/L Normal CL 103 LAB L501.6100 21.0-3 mmol/L Normal 2.0 CO2 32.0 LAB L501.6200 5-15 Normal GAP 6 Performed By: #### L500.2500, L501.9520 #### [facility] [address] [place], [address] THYROID STIM HORMONE Collected: 03/20/2018 Status: F Source: [place] (TSH) 5:06 AM [facility] REPOSITORY TYPE CODE TESTS RESULT OUT OF RANGE REFERENCE UNITS LAB L501.9520 0.358-3.74 uIU/mL Normal TSH 1.50 Performed By: #### L500.2500, L501.9520 #### [facility] [address] [place], [address] THROMBUS Observed: 03/20/2018 Status: F Source: [place] 12:00 AM [facility] REPOSITORY Patient: BELIA GILMORE : 1940 (77/F) Acct Num: [id number] Phys: James Flores DO Unit Num: [id number] Loc: MS3 [id number] Specimen: [id number] Received: 03/20/181609 Spec Type: THROMBUS TISSUES 1 TISSUES: BLOOD CLOT, NOS GROSS DESCRIPTION Received in fixative is one container labeled with the patient's name and designated hematoma and tissue right gluteal. The specimen consists of two pieces of skin with underlying tissue measuring in aggregate 15 x 4.5 cm and up to 5 cm in thickness. Also present in the container is a detached piece of adipose tissue measuring 6 x 3 x 2.5 cm. Also present in the container are multiple blood clots weighing in aggregate 274 gm and measuring 15 x 13 x 6 cm. Sections reveal focally hemorrhagic cut surfaces. No mass lesion is identified. Frontend Engineer sections are submitted in two cassettes. / SJ:yonis 03/21/18 TC: 5 CT: 35016 HEADER OPERATION: Surgical preparation right gluteal area with incision and drain PRE-OP DIAGNOSIS: Hematoma right gluteal and ischial area with extension to thigh TISSUE SUBMITTED: Hematoma and tissue right gluteal MICROSCOPIC DESCRIPTION Slides are reviewed. MICROSCOPIC DIAGNOSIS Soft tissue of right gluteal region, excision: Skin and soft tissue with organizing hematoma in deep soft tissue consistent with hematoma. AM:yonis 03/22/18 Signed Gamal [facility] 03/22/18 <signature on file> Performed By: #### PTHRO #### [facility] [address] [place], [address] PROTHROMBIN TIME W/INR Collected: 03/19/2018 Status: F Source: [place] 6:15 AM [facility] REPOSITORY TYPE CODE TESTS RESULT OUT OF RANGE REFERENCE UNITS LAB L300.4150 11.7-14.9 SECONDS High PROTIME 17.0 LAB L300.4200 Normal INR 1.4 Performed By: #### L300.3900 #### [facility] [address] [place], [address] BRAIN/HEAD WITHOUT Observed: 03/18/2018 Status: F Source: [place] CONTRAST 12:25 PM [facility] REPOSITORY [facility] Imaging Services [address] [place] [address] Brain/Head without Contrast MR#: [id number] Acct: [id number] Name: BELIA GILMORE Rep #: [id number] : 1940 F 77 From: Adrian Crawford DO PCP: Ron Warren MD Status: ADM FERNANDO Study: Brain/Head without Contrast Date of Exam: 03/18/18 Exam# [id number] Ordering Dr: Gage Dudley MD STUDY: CT BRAIN WITHOUT CONTRAST REASON FOR EXAM: Female, 77 years old. Fall yesterday. RADIATION DOSAGE (If Supplied By Facility): CTDIvol = ( 44.99 ) mGy, DLP = ( 812.98 ) mGycm TECHNIQUE: Transaxial CT imaging of the brain was performed without administration of intravenous contrast material. Individualized dose optimization techniques were used for this CT. COMPARISON: None. FINDINGS: Normal soft tissue structures. Normal calvarium. There is mild cerebral atrophy with widening of the extra- axial spaces and ventricular dilatation. There are areas of decreased attenuation within the white matter tracts of the supratentorial brain, consistent with microvascular disease changes. Normal basal ganglia and thalami. Normal brainstem. Normal cerebellum. There is no intracranial hemorrhage. There are no findings of an acute ischemic infarction. Normal visualized paranasal sinuses. CT/Brain/Head without Contrast IMPRESSION: Chronic involutional changes without evidence of acute intracranial or calvarial abnormality. Electronically Signed: Adrian Crawford DO at 13:34 EST Tel [phone], Service support , CC: Gage Dudley MD; Ron Warren MD Siding Installer: Signed CBC W/DIFF, AUTOMATED Collected: 03/18/2018 Status: F Source: [place] 7:25 AM [facility] REPOSITORY TYPE CODE TESTS RESULT OUT OF RANGE REFERENCE UNITS LAB L100.1000 4.4-11.0 K/mm3 High WBC 12.7 LAB L100.1200 4.2-5.4 M/mm3 Low RBC 3.55 LAB L100.1300 12.0-15.0 g/dl Low HGB 11.2 LAB L100.1400 37-47 % Low HCT 34.9 LAB L100.1500 81-99 fL Normal MCV 98.3 LAB L100.1600 27.0-32.0 pg Normal MCH 31.5 LAB L100.1700 32-36 g/gl Normal MCHC 32.1 LAB L100.1810 11.6-14.6 % Normal RDW CV 13.1 LAB L100.1820 35.1-43.9 fl High RDW SD 47.3 LAB L100.1900 150-450 K/mm3 Normal PLT 252 LAB L100.2000 6.2-12.0 fl Normal MPV 10.0 LAB L100.2100 47-70 % High NEUT% 79.4 LAB L100.2200 19-41 % Low LY% 9.6 LAB L100.2300 0-10 % High MONO% 10.7 LAB L100.2400 0-5 % Normal EO% 0.1 LAB L100.2500 0-1 % Normal BASO% 0.0 LAB L100.2550 0.0-0.9 % Normal IM GRAN % 0.200 Result Comment: IG% - Immature Granulocytes (promyelocytes, myelocytes and metamyelocytes) > 1% indicates that a LEFT SHIFT is Present. LAB L100.2620 2.0-7.7 X10 3/uL High Absolute Neut 10.1 LAB L100.2720 0.83-4.51 X10 3/ul Normal Absolute Lymph 1.22 Performed By: #### L100.0100 #### [facility] [place], [address] BASIC METABOLIC Collected: 03/18/2018 Status: F Source: [place] PROFILE ([place]) 7:25 AM [facility] REPOSITORY TYPE CODE TESTS RESULT OUT OF RANGE REFERENCE UNITS LAB L501.0100 74-106 mg/dL High GLU 147 Result Comment: Fasting Glucose result greater than or equal to 126 mg/dL suggests DIABETES MELLITUS per A.D.A. criteria. Please note revised GLUCOSE reference range effective 2017. LAB L501.1000 7-18 mg/dL High BUN 27 LAB L501.1100 0.55-1.02 mg/dL High CREAT,SERUM 1.31 Result Comment: The validity of the calculated GFR AND GFRAA in patients over 70 years has not been determined. Clinical correlation is essential. LAB L501.1110 >60 mL/min Low EST GFR 42 Result Comment: Non- GFR Calc LAB L501.1115 >60 mL/min Low EST GFR - AA 51 Result Comment: GFR Calc LAB L501.1255 ml/min Normal Estimated CRCL 31.55 LAB L501.1300 10-20 RATIO High BUN/CRE 20.6 LAB L501.2200 8.5-10 mg/dL Low .1 CA 8.4 LAB L501.5300 136-14 mmol/L Normal 5 NA 144 LAB L501.5600 3.5-5. mmol/L Normal 1 K 4.7 LAB L501.5900 98-107 mmol/L High CL 110 LAB L501.6100 21.0-3 mmol/L Normal 2.0 CO2 28.0 LAB L501.6200 5-15 Normal GAP 6 Performed By: #### L500.2500 #### [facility] [address] [place], [address] PROTHROMBIN TIME W/INR Collected: 03/18/2018 Status: F Source: [place] 7:25 AM [facility] REPOSITORY TYPE CODE TESTS RESULT OUT OF RANGE REFERENCE UNITS LAB L300.4150 11.7-14.9 SECONDS High PROTIME 31.4 LAB L300.4200 Normal INR 3.0 Performed By: #### L300.3900 #### [facility] [address] [place], [address] HISTORY AND PHYSICAL Observed: 03/18/2018 Status: F Source: [place] EXAM 2:16 AM [facility] REPOSITORY [facility] Medical Records Department [address] [place] [address] History and Physical 03/17/18 2241 MR#: [id number] Acct: [id number] Name: BELIA GILMORE Rep #: [id number] : 1940 77 From: Nelson Urban MD PCP: Ron Warren MD Status: ADM FERNANDO Y Location: [place] [address] Problem List (1) Fall Status: Acute (2) Hematoma Status: Acute (3) DVT (deep venous thrombosis) Status: Chronic Comment: right lower leg (4) Hyperlipidemia Status: Chronic Qualifiers: Hyperlipidemia type: pure hypercholesterolemia Qualified Code(s): E78.00 - Pure hypercholesterolemia, unspecified; E78.0 - Pure hypercholesterolemia (5) Paroxysmal atrial fibrillation Status: Chronic History of Present Illness Date of Admission: 03/17/18 Chief Complaint: Fall and hematoma on buttock The patient is a 77 year old F with past medical history as below who presents after falling down a couple of stairs at home. She says that the fall was mechanical in nature, she was bringing a walker out of the attic and she missed a step. The walker was for her daughter's [id number]. This happened earlier in the morning and as the day progressed she had worsening pain and could not sit upright and would become lightheaded on occasion. When she presented to the ER she was found to have a large hematoma on her right buttock that was very firm and indurated. She denies hitting her head, and is not dizzy, lightheaded at the moment. Lumbar spine spine CT demonstrates a possible acute L3 fracture without significant loss of vertebral body height, as well as a noncompressive L5-S1 disc protrusion. She is not complaining of any significant midline back pain most of her pain is in her right buttock and occasionally down to her legs. She states that she can move her toes feels her legs. She currently takes Coumadin for her A. fib, and she used to be on Eliquis however she at a time had a rectal bleed that was found to be small bowel and her filenet admin felt that it would be prudent to put her on Coumadin because the levels could be monitored. Past Medical History Past Medical History (Chronic Problems): Chronic Problems (Last Reviewed 08/26/17 @ 13:09 by Zoë Duke) [facility] current use of anticoagulant (Chronic) DVT (deep venous thrombosis) (Chronic) right lower leg Hyperlipidemia (Chronic) Paroxysmal atrial fibrillation (Chronic) Medical History: Medical History (Last Reviewed 08/26/17 @ 13:09 by Zoë Duke) DVT (deep venous thrombosis) (Chronic) I82.409 right lower leg Hyperlipidemia (Chronic) E78.5 Paroxysmal atrial fibrillation (Chronic) I48.0 Hypothyroidism E03.9 Immunosuppressed status D89.9 on Humira 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 M81.0 Peptic ulcer disease K27.9 Rheumatoid arthritis M06.9 Atrial fibrillation with RVR (Resolved) I48.91 Cellulitis of left lower extremity L03.116 GI bleed K92.2 History of Clostridium difficile (Inactive) Z87.19 Allergies cephalexin monohydrate [From Keflex] Allergy (Verified 03/17/18 18:05) Hives ethchlorvynol [From Placidyl] Allergy (Verified 03/17/18 18:05) Unknown NSAIDS (Non-Steroidal Anti-Inflamma Allergy (Verified 03/17/18 18:05) Unknown Penicillins [PCN] Allergy (Verified 03/17/18 18:05) Unknown Sulfa (Sulfonamide Antibiotics) Allergy (Verified 03/17/18 18:05) Rash sulfamethoxazole [From Septra] Allergy (Verified 03/17/18 18:05) Unknown trimethoprim [From Septra] Allergy (Verified 03/17/18 18:05) Unknown Home Medications: Ambulatory Orders Medication Instructions Recorded Surgical History: Surgical History (Last Updated 09/26/17 @ 10:17 by Zoë Duke) H/O colectomy Z90.49 H/O shoulder surgery Z98.890 left H/O total hysterectomy Z90.710 History of arthroplasty of left knee Z96.652 History of bunionectomy of both great toes Z98.890 History of left heart catheterization Onset Date: 1999 Z98.890 @ [facility] History of right knee joint replacement Z96.651 History of tonsillectomy and adenoidectomy Z98.890 Hx of cholecystectomy Z90.49 surgical debridement left lower extremity Onset Date: 10/2014 Psychiatric History: Anxiety, Depression 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: No pertinent FINANCIAL SERVICES CONSULTANT history Smoking Status: Never smoker - *Family History Maternal Family History: Family History (Last Reviewed 08/26/17 @ 13:09 by Zoë Duke) Father CAD (coronary artery disease) Mother Breast cancer History Items: Cancer - mother had breast CA in her 90's, Unknown Paternal Family History: Family History (Last Reviewed 08/26/17 @ 13:09 by Zoë Duke) Father CAD (coronary artery disease) Mother Breast cancer History Items: Heart Disease, - - aneurysm in her father who from CAD and aneurym at 74 Sibling Family History: Family History (Last Reviewed 08/26/17 @ 13:09 by Zoë Duke) Father CAD (coronary artery disease) Mother Breast cancer History Items: Cancer - she had a brother with throat cancer, - - she had a sister with severe epilepsy who lived in a NH and Review of Systems Constitutional: Denies: Chills, Fever, Weight Change HEENT: Denies: Head Aches, Sinus Congestion, Sinus Drainage Cardiovascular: Denies: Chest Pain, Palpitations Respiratory: Denies: Cough, Shortness of breath at rest, Sputum production Gastrointestinal: Denies: Abdominal Pain, Nausea, Vomiting Genitourinary: Denies: Dysuria Musculoskeletal: Reports: Muscle pain - Gluteal. Denies: Joint Pain, Joint Tenderness Skin: Denies: Rash, Wounds Neurological: Denies: Numbness, Tingling, Focal weakness Psychiatric: Denies: Anxiety, Depression Hematologic/ Lymphatic: Denies: Easy Bruising, Easy Bleeding VTE Information - Inpt Only VTE Present on Admission: No Patient Problems: Active and Suspected Problems (Last Reviewed 08/26/17 @ 13:09 by Zoë Duke) Fall (Acute) Hematoma (Acute) - Physical Exam General: Alert, Oriented x3, Cooperative, No apparent distress HEENT: Atraumatic, PERRLA, EOMI Neck: Supple, No JVD Lungs: Clear to auscultation, Normal air movement, No rhonchi, No wheeze, No rales Cardiovascular: Regular rate, Regular Rhythm, Normal S1, Normal S2, No murmurs Abdomen: Soft, Non Tender, Non-Distended, No Hepato-splenomegaly Extremities: No edema, Capillary Refill Less than 3 Seconds, Tenderness - Over the right buttock where there is a large hematoma approximately 11 inches in diameter. Skin: No rashes, No breakdown Neurological: Neuro grossly intact, Sensory exam intact to light touch and pain Psych/Mental Status: Normal Affect, Appropriate Vital Signs Temp Pulse Resp BP Pulse Ox 98.0 F 52 L 16 108/59 L 96 03/17/18 18:06 03/17/18 21:56 03/17/18 21:56 03/17/18 21:56 03/17/18 21:56 Oxygen Delivery Method Room Air Weight: 198 lb 3.129 oz Body Mass Index (BMI) 34.0 Laboratory Tests Past 24 Hrs WBC 14.1 H WBC RBC Hgb Hct MCV MCH MCHC RDW RDW Differential Plt Count MPV Immature Gran % (Auto) Neut % (Auto) Assessment/Plan All Active Problems (Last Reviewed 08/26/17 @ 13:09 by Zoë Duke) Fall (Acute) Hematoma (Acute) Atrial fibrillation with RVR (Resolved) Cellulitis and abscess of leg (Resolved) Influenza B (Resolved) Influenzal bronchiolitis (Resolved) 1. Possible acute L3 compression fx/Right buttock hematoma - Will hold coumadin and monitor INR - OK to be off of coumadin for a few days - SCDs for DVT - Given such mild loss of height, no immediate surgical intervention likely, especially given INR - May need TLSO brace and outpatient f/u - Will monitor for worsening hematoma 2. HTN/HLD/A-fib - BP is stable - c/w home HCTZ, coreg, hold coumadin, INR is 3 3. Hypothyroidism - stable, TSH 2.17 in july - c/w synthroid 4. Depression - stable - c/w zoloft 5. RA - currently controlled with tocilizumab q2 weeks DVT: SCDs Code Visit OBSV E AND M: [id number] Initial observation care L3 03/18/18 0216 <Electronically signed by Nelson Urban MD> Date Nelson Urban MD Cosigner Signature: Date (if applicable) CC: Nelson Urban MD; Ron Warren MD Signed EMERGENCY DEPARTMENT Observed: 03/18/2018 Status: F Source: [place] SUMMARY 12:29 AM [facility] REPOSITORY [facility] Medical Records Department [address] [place] [address] Emergency Department Summary 03/17/18 2147 MR#: [id number] Acct: [id number] Name: BELIA GILMORE Rep #: [id number] : 1940 77 From: Dennis Robert MD PCP: Ron Warren MD Status: ADM FERNANDO - ER Visit Summary Date of Service: 03/17/18 Chief Complaint: Fall History of Present Illness: The patient is a 77 F presenting for evaluation after fall. Patient states that she was descending her basement stairs. She suffered a mechanical fall where she fell directly onto her buttock and right side. Patient states that she did not hit her head or lose consciousness. She is complaining of pain in her lower back, right buttock, and some radiation down her right leg. She denies any numbness or weakness. Patient is on anticoagulation for atrial fibrillation. Review of systems otherwise negative. Physical Examination: Primary survey: Airway is patent, breath sounds equal bilateral, central peripheral pulses 2+ and symmetric, GCS 15 out of 15. Vitals within normal limits. Secondary survey: General: Well-nourished well-developed no acute distress Head: Normocephalic atraumatic Eyes: PERRLA, EOMI ENT: TMs clear no hemotympanum no drainage Neck: Nontender full range of motion, no step-offs noted Heart: Regular rate and rhythm no murmurs Lungs: Respirations nondistressed, lung sounds clear to auscultation bilaterally, chest nontender, normal chest excursion bilaterally Abdomen: Soft nontender nondistended normal bowel sounds no palpable abdominal masses Back: Tender in the lumbar spine without any evidence of step-offs Extremities: Extremity exam is atraumatic except for examination of the patient's right gluteal region which shows a significantly large hematoma that is firm and tender to palpation. Skin: Normal color no trauma Neuro: Alert and oriented 4, GCS 15 out of 15, no lateralizing neurological deficits. Test Results: CBC shows leukocytosis of 14, INR is 3.1, CK is normal. CT lumbar spine shows an L3 compression fracture with no loss of height. CT of the pelvis shows a large gluteal hematoma. Emergency Department Course and Treatment: Patient presented secondary to mechanical fall. Primary and secondary surveys as noted above showed only injuries to the patient's back and gluteal region. She was found to have a compression fracture and a large hematoma. Given the patient's anticoagulation status and her large hematoma in her gluteal region there is some concern for the possibility of development of a compartment syndrome. I did discuss this with orthopedics, who agrees to see the patient if needed for compartment syndrome. Patient was admitted for observation and pain control. Disposition: Admission Impression: 1. Right gluteal hematoma 2. L3 compression fracture 3. Mechanical fall This note was generated with Vungle dictation software. It may contain incorrect words, spelling, and punctuation that were not noted in review of the chart prior to signing ED Disposition - Plan for ED Patient: Disposition: Acute Care Hospital [facility] Chief Complaint: Fall What to do if you have Problems For any increased pain, shortness of breath, bleeding, nausea or vomiting, chest pain, or any unexpected problems, contact your Primary Care Provider. Call [facility] ([phone]) or report to the closest Emergency Room. Call 911 if necessary. 03/18/18 0029 <Electronically signed by Dennis Robert MD> Date Dennis Robert MD Cosigner Signature (If Indicated): Date CC: Ron Warren MD CBC W/DIFF, AUTOMATED Collected: 03/17/2018 Status: F Source: [place] 6:45 PM [facility] REPOSITORY TYPE CODE TESTS RESULT OUT OF RANGE REFERENCE UNITS LAB L100.1000 4.4-11.0 K/mm3 High WBC 14.1 LAB L100.1200 4.2-5.4 M/mm3 Low RBC 3.94 LAB L100.1300 12.0-15.0 g/dl Normal HGB 12.5 LAB L100.1400 37-47 % Normal HCT 37.4 LAB L100.1500 81-99 fL Normal MCV 94.9 LAB L100.1600 27.0-32.0 pg Normal MCH 31.7 LAB L100.1700 32-36 g/gl Normal MCHC 33.4 LAB L100.1810 11.6-14.6 % Normal RDW CV 12.8 LAB L100.1820 35.1-43.9 fl High RDW SD 45.1 LAB L100.1900 150-450 K/mm3 Normal PLT 253 LAB L100.2000 6.2-12.0 fl Normal MPV 10.4 LAB L100.2100 47-70 % High NEUT% 83.2 LAB L100.2200 19-41 % Low LY% 8.7 LAB L100.2300 0-10 % Normal MONO% 8.0 LAB L100.2400 0-5 % Normal EO% 0.0 LAB L100.2500 0-1 % Normal BASO% 0.0 LAB L100.2550 0.0-0.9 % Normal IM GRAN % 0.100 Result Comment: IG% - Immature Granulocytes (promyelocytes, myelocytes and metamyelocytes) > 1% indicates that a LEFT SHIFT is Present. LAB L100.2620 2.0-7.7 X10 3/uL High Absolute Neut 11.7 LAB L100.2720 0.83-4.51 X10 3/ul Normal Absolute Lymph 1.22 Performed By: #### L100.0100 #### [facility] [address] [place], [address] BASIC METABOLIC Collected: 03/17/2018 Status: F Source: [place] PROFILE ([place]) 6:45 PM [facility] REPOSITORY TYPE CODE TESTS RESULT OUT OF RANGE REFERENCE UNITS LAB L501.0100 74-106 mg/dL High GLU 151 Result Comment: Fasting Glucose result greater than or equal to 126 mg/dL suggests DIABETES MELLITUS per A.D.A. criteria. Please note revised GLUCOSE reference range effective 2017. LAB L501.1000 7-18 mg/dL High BUN 20 LAB L501.1100 0.55-1.02 mg/dL Normal CREAT,SERUM 0.98 Result Comment: The validity of the calculated GFR AND GFRAA in patients over 70 years has not been determined. Clinical correlation is essential. LAB L501.1110 >60 mL/min Low EST GFR 59 Result Comment: Non- GFR Calc LAB L501.1115 >60 mL/min Normal EST GFR - AA 71 Result Comment: GFR Calc LAB L501.1255 ml/min Normal Estimated CRCL 42.17 LAB L501.1300 10-20 RATIO High BUN/CRE 20.5 LAB L501.2200 8.5-10 mg/dL Low .1 CA 8.2 LAB L501.5300 136-14 mmol/L Normal 5 NA 143 LAB L501.5600 3.5-5. mmol/L Normal 1 K 4.1 LAB L501.5900 98-107 mmol/L High CL 110 LAB L501.6100 21.0-3 mmol/L Normal 2.0 CO2 23.0 LAB L501.6200 5-15 Normal GAP 10 Performed By: #### L500.2500 #### [facility] [address] [place], [address] CPK TOTAL, CREATINE Collected: 03/17/2018 Status: F Source: [place] 6:45 PM [facility] REPOSITORY TYPE CODE TESTS RESULT OUT OF RANGE REFERENCE UNITS LAB L501.3620 26-192 U/L Normal CPK TOTAL 108 Performed By: #### L501.3620 #### [facility] [address] [facility] [place], [address] PROTHROMBIN TIME W/INR Collected: 03/17/2018 Status: F Source: [place] 6:45 PM [facility] REPOSITORY TYPE CODE TESTS RESULT OUT OF RANGE REFERENCE UNITS LAB L300.4150 11.7-14.9 SECONDS High PROTIME 31.8 LAB L300.4200 Normal INR 3.1 Performed By: #### L300.3900, L300.4310 #### [facility] [address] [place], [address] PARTIAL THROMBOPLAST Collected: 03/17/2018 Status: F Source: [place] TIME 6:45 PM [facility] REPOSITORY TYPE CODE TESTS RESULT OUT OF RANGE REFERENCE UNITS LAB L300.4310 24.1-36.2 Seconds Normal PTT 31.0 Performed By: #### L300.3900, L300.4310 #### [facility] [address] [place], [address] SPINE LUMBAR WITHOUT Observed: 03/17/2018 Status: F Source: [place] CONTRAST 6:36 PM [facility] REPOSITORY [facility] Imaging Services [address] [place] [address] Spine Lumbar without Contrast MR#: [id number] Acct: [id number] Name: BELIA GILMORE Rep #: [id number] : 1940 F 77 From: Nancy Bryant MD PCP: Ron Warren MD Status: REG ER Study: Spine Lumbar without Contrast Date of Exam: 03/17/18 Exam# [id number] Ordering Dr: Dennis Robert MD STUDY: CT LUMBAR SPINE WITHOUT CONTRAST REASON FOR EXAM: Female, 77 years old. Status post fall down steps. Buttock hematoma. RADIATION DOSAGE (If Supplied By Facility): CTDIvol = ( 32.41 ) mGy, DLP = ( 2397.93 ) mGycm TECHNIQUE: The patient was scanned in a multi detector CT scanner. High resolution transaxial imaging was performed. Images were obtained from to . Sagittal and coronal images were reconstructed. Individualized dose optimization techniques were used for this CT. COMPARISON: None FINDINGS: Normal lumbar lordosis. There is no substantial scoliosis. Normal vertebrae of the lumbar spine. T12-L1: Unremarkable. L1-2: Normal endplates. Normal disc height and morphology. Normal bilateral facet joints. There is calcification of the left ligamentum flavum. Normal central canal and bilateral lateral recesses. Normal bilateral intervertebral neural foramina. L2-3: There is suspected disruption of the superior endplate of L3, with minimal loss of vertebral body height. Normal disc height and morphology. Normal bilateral facet joints. Normal central canal and bilateral lateral recesses. Normal bilateral intervertebral neural foramina. L3-4: Normal endplates. Normal disc height and morphology. Normal bilateral facet joints. Normal central canal and bilateral lateral recesses. Normal bilateral intervertebral neural foramina. L4-5: Normal endplates. Normal disc height and morphology. Normal bilateral facet joints. Normal central canal and bilateral lateral recesses. Normal bilateral intervertebral neural foramina. L5-S1: Normal endplates. Normal disc space height with vacuum phenomenon. There is a small, broad-based central disc protrusion. Normal bilateral facet joints. Normal central canal and bilateral lateral recesses. Normal bilateral intervertebral neural foramina. Normal visualized paraspinous soft tissue structures. The aorta is normal in caliber. CT/Spine Lumbar without Contrast IMPRESSION: 1. Suspected acute L3 fracture without significant loss of vertebral body height. 2. Noncompressive L5-S1 disc protrusion. Electronically Signed: Nancy Bryant MD at 20:06 EST Tel , Service support , CC: Dennis Robert; Ron Warren MD Siding Installer: Signed PELVIS WITHOUT IV Observed: 03/17/2018 Status: F Source: [place] CONTRAST 6:36 PM [facility] REPOSITORY [facility] Imaging Services [address] [place] [address] Pelvis without IV Contrast MR#: [id number] Acct: [id number] Name: BELIA GILMORE Rep #: [id number] : 1940 F 77 From: Nancy Bryant MD PCP: Ron Warren MD Status: REG ER Study: Pelvis without IV Contrast Date of Exam: 03/17/18 Exam# [id number] Ordering Dr: Dennis Robert MD STUDY: CT PELVIS WITHOUT CONTRAST REASON FOR EXAM: Female, 77 years old. Fell down steps. RADIATION DOSAGE (If Supplied By Facility): CTDIvol = ( 32.41 ) mGy, DLP = ( 2397.93 ) mGycm TECHNIQUE: Transaxial imaging of the pelvis was performed with oral contrast, and without intravenous administration of contrast material. Individualized dose optimization techniques were used for this CT. COMPARISON: None. FINDINGS: There is no free fluid or hematoma in the pelvis. The bladder is well-distended and is unremarkable. There is no bowel obstruction. Cortical margins of the L3 vertebral body appear fractured without significant loss of vertebral body height. There is otherwise no evidence of fracture. Degenerative changes of the lower lumbar spine are noted. Sacral ala and bony pelvis are intact. Hip joints are unremarkable. Proximal femora and acetabulae are intact. There is a soft tissue hematoma in the right buttock measuring approximately 8 x 8.5 cm. Swelling and edema of the right gluteus david is noted. CT/Pelvis without IV Contrast IMPRESSION: Suspected L3 fracture. Large right buttock hematoma. Electronically Signed: Nancy Bryant MD at 20:17 EST Tel , Service support , CC: Dennis Robert; Ron Warren MD Siding Installer: Signed PROTHROMBIN TIME W/INR Collected: 03/07/2018 Status: F Source: [place] 3:14 PM [facility] REPOSITORY TYPE CODE TESTS RESULT OUT OF RANGE REFERENCE UNITS LAB L300.4150 11.7-14.9 SECONDS High PROTIME 20.6 LAB L300.4200 Normal INR 1.8 Performed By: #### L300.3900 #### [facility] [address] [place], [address] PROTHROMBIN TIME W/INR Collected: 02/24/2018 Status: F Source: [place] 1:57 PM [facility] REPOSITORY TYPE CODE TESTS RESULT OUT OF RANGE REFERENCE UNITS LAB L300.4150 11.7-14.9 SECONDS High PROTIME 19.1 LAB L300.4200 Normal INR 1.6 Performed By: #### L300.3900 #### [facility] [address] [place], [address] PROTHROMBIN TIME W/INR Collected: 02/10/2018 Status: F Source: [place] 4:20 PM [facility] REPOSITORY TYPE CODE TESTS RESULT OUT OF RANGE REFERENCE UNITS LAB L300.4150 11.7-14.9 SECONDS High PROTIME 22.9 LAB L300.4200 Normal INR 2.0 Performed By: #### L300.3900 #### [facility] [address] [place], [address] CARDIOLOGY VISIT Observed: 01/28/2018 Status: F Source: [place] REPORT 10:26 AM [facility] REPOSITORY [facility] [address] [place] [address] OFFICE VISIT Date of Service: 01/27/18 MR#: [id number] Acct: [id number] Name: BELIA GILOMRE Rep #: [id number] : 1940 Provider: Kathie Juares Age/Sex: 77/F Location: [facility] [place] Status: Signed HPI HPI Chief Complaint: Routine f/u Details: BELIA GILMORE, is a 77 F who presents to the office today for a cardiovascular follow-up. She has a history of paroxysmal atrial fibrillation. From a cardiac standpoint, patient is doing well. She does not have any chest discomfort/heaviness/tightness. Her exercise tolerance is stable for her age. She does not have any worsening symptoms of shortness of breath. She does not have any orthopnea. She denies PND. She does not have any symptoms of congestive heart failure. She does occasionally have any palpitations. She does occasionally have lightheadedness. She does not have any near-syncope or syncope. She does occasionally have lower extremity edema. She does not have any symptoms of claudication. She does have questions regarding her coumadin. 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 Required: No Accompanied by: none Is patient in pain?: No Allergies cephalexin monohydrate [From Keflex] Allergy (Verified 08/26/17 13:09) Hives ethchlorvynol [From Placidyl] Allergy (Verified 08/26/17 13:09) Unknown NSAIDS (Non-Steroidal Anti-Inflamma Allergy (Verified 08/26/17 13:09) Unknown Penicillins [PCN] Allergy (Verified 08/26/17 13:09) Unknown Sulfa (Sulfonamide Antibiotics) Allergy (Verified 08/26/17 13:09) Rash sulfamethoxazole [From Septra] Allergy (Verified 08/26/17 13:09) Unknown trimethoprim [From Septra] Allergy (Verified 08/26/17 13:09) Unknown Medications Atorvastatin Calcium [Lipitor] 20 mg PO QHS 10/17/14 [History Confirmed 01/27/18] Ergocalciferol [Vitamin D] 5,000 unit PO DAILY 10/17/14 [History Confirmed 01/27/18] Levothyroxine [Synthroid] 100 mcg PO DAILY 10/17/14 [History Confirmed 01/27/18] Sertraline HCl [Zoloft] 100 mg PO DAILY 10/17/14 [History Confirmed 01/27/18] Acetaminophen [Tylenol Tablet] 650 mg PO Q6H PRN PRN tab 07/13/17 [Rx Confirmed 01/27/18] Albuterol Inhaler [Ventolin Hfa] 2 puff INHALATION Q4H PRN PRN #1 inhaler 07/13/17 [Rx Confirmed 01/27/18] tocilizumab 162 mg/0.9 mL subcutaneous syringe 162 mg SC Q2W ml 08/26/17 [History Confirmed 01/27/18] hydrochlorothiazide 25 mg tablet 25 mg PO QAM #30 tab 09/26/17 [Rx Confirmed 01/27/18] carvedilol 6.25 mg tablet 6.25 mg PO BID #180 tab 11/02/17 [Rx Confirmed 01/27/18] warfarin 1 mg tablet 1 mg PO .COMPLEX #90 tab 01/19/18 [Rx Confirmed 01/27/18] warfarin 2.5 mg tablet 2.5 mg PO .COMPLEX #120 tab 01/19/18 [Rx Confirmed 01/19/18] PFSH Medical History DVT (deep venous thrombosis) (Chronic) Hyperlipidemia (Chronic) Paroxysmal atrial fibrillation (Chronic) Hypothyroidism (Chronic) Immunosuppressed status (Chronic) 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 (Chronic) Peptic ulcer disease (Chronic) Rheumatoid arthritis (Chronic) Atrial fibrillation with RVR (Resolved) Cellulitis of left lower extremity (Resolved) GI bleed (Resolved) History of Clostridium difficile (Inactive) Surgical History H/O colectomy (Chronic) H/O shoulder surgery (Chronic) H/O total hysterectomy (Chronic) History of arthroplasty of left knee (Chronic) History of bunionectomy of both great toes (Chronic) History of left heart catheterization (Chronic 1999) History of right knee joint replacement (Chronic) History of tonsillectomy and adenoidectomy (Chronic) Hx of cholecystectomy (Chronic) surgical debridement left lower extremity (Chronic 10/2014) Family History Father CAD (coronary artery disease) Mother Breast cancer breast Social History Smoking Status: Never smoker ROS Const Const: Negative for weakness, fatigue, fever(s) or headache(s) Eyes Eyes: Negative for blind spots, loss of peripheral vision or transient loss of vision ENT ENT: Negative for headache(s), dizziness, tinnitus or Nosebleed/epistaxis Cardio Chest Pain: No Palpitations: No Edema: None Muscle aches with walking: None Resp Respiratory: Negative for SOB with activity, SOB at rest, SOB orthopnea\SOB lying down or Cough GI GI: Negative nausea, vomiting, heartburn or vomiting blood/hematemesis : Negative for hematuria Musc Musc: Negative for muscle aches/ myalgia Neuro Neuro: Negative for weakness, headache(s), dizziness, near syncope, syncope, lightheadedness or orthostatic symptoms Nicholas Hematologic/Lymphatic: Negative for easy bleeding Endo Endo: Negative for fatigue Cardiology Exam Const Appearance: cooperative, no acute distress and well developed Orientation: alert, awake and oriented x3 Head Head: normocephalic and atraumatic Mouth: moist mucous membranes Eyes General: appearance normal, both eyes and all related structures Conjunctivae: conjunctivae normal Pupils: PERRL EOM: EOM intact bilaterally Neck Neck: normal visual inspection, no lymphadenopathy and no JVD Carotids: Negative bruit Neck Mass: Negative Neck mass Chest Chest inspection: normal inspection of the chest and symmetric chest movement Auscultation: Bilateral: Clear to Auscultation Cardio Palpation: normal PMI Rate: regular rate Rhythm: regular rhythm Heart sounds: S1 normal and S2 normal; negative rub, gallop or murmur GI GI: normal to inspection, soft, no hepatosplenomegaly and bowel sounds present; negative tender Neuro General: alert, awake, oriented x3, CN's II-XI intact bilaterally and moves all extremities Extremities Pulses: Normal: Right Posterior Tibial Pulse, Left Posterior Tibial Pulse, Right Radial Pulse, Left Radial Pulse Lower Extremity Edema: None: Bilateral Psych Psychological: normal affect Supplemental Info Echocardiogram in 2018 demonstrated: The estimated ejection fraction is 65 %. Stage 1 diastolic dysfunction. Trivial tricuspid valve insufficiency. Right ventricular systolic pressure estimated to be 33 mmHg. Compared to echo report dated 10/26/2014, no appreciable changes noted. RVSP has increased from 24 to 33 mm Hg. Dobutamine stress echocardiogram in 2018 demonstrated: Normal, adequate, dobutamine echocardiogram. Negative for ischemia by EKG and echocardiographic criteria. No anginal symptoms noted. No arrhythmias noted. Test terminated due to the attainment of target heart rate. Final LVEF of 75%. No complications. Assessment AND Plan 1. Paroxysmal atrial fibrillation I48.0 Plan Patient has had minimal recurrence. We will continue with current rate limiting medication in addition to her Coumadin with a therapeutic INR goal of 2-3. 2. Pure hypercholesterolemia E78.00; E78.0 Plan Patient will continue with her current low-dose statin medication. This is being managed by primary care doctor. Plan Detail Additional Comments Thank you for allowing us to participate in the patients plan of care, if you have any questions please do not hesitate to call. This note was generated using a voice recognition system and there may be incorrect words, spelling or punctuation that were not noted when reviewing the office note prior to saving. Follow Up 6 Months (DJN) Coding Level of Care Code Off vis,est,level 3 Diagnoses Paroxysmal atrial fibrillation I48.0 Pure hypercholesterolemia E78.00; E78.0 Hyperlipidemia type: pure hypercholesterolemia Coding Level of Care Code Off vis,est,level 3 Diagnoses Paroxysmal atrial fibrillation I48.0 Pure hypercholesterolemia E78.00; E78.0 Hyperlipidemia type: pure hypercholesterolemia 01/28/18 1026 <Electronically signed by Kathie GIBSON> Date Kathie GIBSON Cosigner Signature: Date (if applicable) CC: PROTHROMBIN TIME W/INR Collected: 01/19/2018 Status: F Source: [place] 2:55 PM [facility] REPOSITORY TYPE CODE TESTS RESULT OUT OF RANGE REFERENCE UNITS LAB L300.4150 11.7-14.9 SECONDS High PROTIME 21.5 LAB L300.4200 Normal INR 1.9 Performed By: #### L300.3900 #### [facility] [address] [place], [address] PROTHROMBIN TIME W/INR Collected: 01/06/2018 Status: F Source: [place] 3:28 PM [facility] REPOSITORY TYPE CODE TESTS RESULT OUT OF RANGE REFERENCE UNITS LAB L300.4150 11.7-14.9 SECONDS High PROTIME 21.2 LAB L300.4200 Normal INR 1.8 Performed By: #### L300.3900 #### [facility] [address] [place], [address] PROTHROMBIN TIME W/INR Collected: 12/23/2017 Status: F Source: [place] 10:27 AM [facility] REPOSITORY TYPE CODE TESTS RESULT OUT OF RANGE REFERENCE UNITS LAB L300.4150 11.7-14.9 SECONDS High PROTIME 22.4 LAB L300.4200 Normal INR 2.0 Performed By: #### L300.3900 #### [facility] [address] [place], [address] PROTHROMBIN TIME W/INR Collected: 12/06/2017 Status: F Source: [place] 2:19 PM [facility] REPOSITORY TYPE CODE TESTS RESULT OUT OF RANGE REFERENCE UNITS LAB L300.4150 11.7-14.9 SECONDS High PROTIME 19.9 LAB L300.4200 Normal INR 1.7 Performed By: #### L300.3900 #### [facility] [address] [place], [address] BUN Collected: 11/08/2017 Status: F Source: [facility] 11:23 AM [facility] REPOSITORY TYPE CODE TESTS RESULT OUT OF RANGE REFERENCE UNITS LAB BUN(LOINC) 8.0-22.0 mg/dL BUN 18.0 Performed By: #### BUN, AST, ALB, CRP, CRE, ALT, GFR #### [facility] [address] [place] [address] AST Collected: 11/08/2017 Status: F Source: [facility] 11:23 AM [facility] REPOSITORY TYPE CODE TESTS RESULT OUT OF RANGE REFERENCE UNITS LAB AST(LOINC) 8-34 U/L AST/SGOT 28 Performed By: #### BUN, AST, ALB, CRP, CRE, ALT, GFR #### [facility] [address] [place] [address] ALB Collected: 11/08/2017 Status: F Source: [facility] 11:23 AM [facility] REPOSITORY TYPE CODE TESTS RESULT OUT OF REFERENCE UNITS RANGE LAB ALB(LOINC) 3.2-4.8 G/dL Albumin Level 3.6 Performed By: #### BUN, AST, ALB, CRP, CRE, ALT, GFR #### [place] [address] [place] [address] CRP Collected: 11/08/2017 Status: F Source: [facility] 11:23 AM [facility] REPOSITORY TYPE CODE TESTS RESULT OUT OF REFERENCE UNITS RANGE LAB CRP(LOINC) <=0.80 mg/dL C-Reactive 0.12 Protein Performed By: #### BUN, AST, ALB, CRP, CRE, ALT, GFR #### [place] [address] CRE Collected: 11/08/2017 Status: F Source: [facility] 11:23 AM [facility] REPOSITORY TYPE CODE TESTS RESULT OUT OF REFERENCE UNITS RANGE LAB CRE(LOINC) 0.50-1.20 mg/dL Creatinine Lvl 1.06 (s) Performed By: #### BUN, AST, ALB, CRP, CRE, ALT, GFR #### [place] [address] ALT/SGPT Collected: 11/08/2017 Status: F Source: [facility] 11:23 AM [facility] REPOSITORY TYPE CODE TESTS RESULT OUT OF RANGE REFERENCE UNITS LAB ALT(LOINC) 10-49 U/L ALT/SGPT 35 Performed By: #### BUN, AST, ALB, CRP, CRE, ALT, GFR #### [place] [address] .GFR Collected: 11/08/2017 Status: F Source: [facility] 11:23 AM [facility] REPOSITORY TYPE CODE TESTS RESULT OUT OF REFERENCE UNITS RANGE LAB GFRAA(LOINC ml/min/1.73 ) sqm GFR >60 [place] Result Comment: GFR Population mean for , Non- Americans Ages 20-29 = 116 mL/min/1.73 sq.m. Ages 30-39 = 107 mL/min/1.73 sq.m. Ages 40-49 = 99 mL/min/1.73 sq.m. Ages 50-59 = 93 mL/min/1.73 sq.m. Ages 60-69 = 85 mL/min/1.73 sq.m. Ages 70+ = 75 mL/min/1.73 sq.m. Chronic Kidney Disease: Less than 60 mL/min/1.73 square meters End Stage Renal Disease: Less than 15 mL/min/1.73 square meters LAB GFRNO(LOINC) ml/min/1.73sqm GFR Non- 50 Result Comment: GFR Population mean for , Non- Americans Ages 20-29 = 116 mL/min/1.73 sq.m. Ages 30-39 = 107 mL/min/1.73 sq.m. Ages 40-49 = 99 mL/min/1.73 sq.m. Ages 50-59 = 93 mL/min/1.73 sq.m. Ages 60-69 = 85 mL/min/1.73 sq.m. Ages 70+ = 75 mL/min/1.73 sq.m. Chronic Kidney Disease: Less than 60 mL/min/1.73 square meters End Stage Renal Disease: Less than 15 mL/min/1.73 square meters Performed By: #### BUN, AST, ALB, CRP, CRE, ALT, GFR #### [address] [address] PROTHROMBIN TIME W/INR Collected: 11/07/2017 Status: F Source: [place] 3:08 PM [facility] REPOSITORY TYPE CODE TESTS RESULT OUT OF RANGE REFERENCE UNITS LAB L300.4150 11.7-14.9 SECONDS High PROTIME 25.5 LAB L300.4200 Normal INR 2.3 Performed By: #### L300.3900 #### [facility] [address] [facility] [place], [place], [address] PROTHROMBIN TIME W/INR Collected: 10/24/2017 Status: F Source: [place] 4:06 PM [facility] REPOSITORY TYPE CODE TESTS RESULT OUT OF RANGE REFERENCE UNITS LAB L300.4150 11.7-14.9 SECONDS High PROTIME 29.4 LAB L300.4200 Normal INR 2.8 Performed By: #### L300.3900 #### [facility] [address] [facility] [place], [address] PROTHROMBIN TIME W/INR Collected: 10/10/2017 Status: F Source: [place] 2:07 PM [facility] REPOSITORY TYPE CODE TESTS RESULT OUT OF RANGE REFERENCE UNITS LAB L300.4150 11.7-14.9 SECONDS High PROTIME 26.1 LAB L300.4200 Normal INR 2.4 Performed By: #### L300.3900 #### [facility] [address] [facility] [place], [address] PROTHROMBIN TIME W/INR Collected: 10/03/2017 Status: F Source: [place] 3:46 PM [facility] REPOSITORY TYPE CODE TESTS RESULT OUT OF RANGE REFERENCE UNITS LAB L300.4150 11.7-14.9 SECONDS High PROTIME 16.3 LAB L300.4200 Normal INR 1.3 Performed By: #### L300.3900 #### [facility] [address] [place], [address] BASIC METABOLIC Collected: 10/03/2017 Status: F Source: [place] PROFILE (BMP) 3:45 PM [facility] REPOSITORY TYPE CODE TESTS RESULT OUT OF RANGE REFERENCE UNITS LAB L501.0100 74-106 mg/dL Normal GLU 106 Result Comment: Fasting Glucose result from 100 to 125 mg/dL suggests IMPAIRED HOMEOSTASIS per A.D.A. criteria. Please note revised GLUCOSE reference range effective 2017. LAB L501.1000 7-18 mg/dL High BUN 21 LAB L501.1100 0.55-1.02 mg/dL Normal CREAT,SERUM 0.99 Result Comment: The validity of the calculated GFR AND GFRAA in patients over 70 years has not been determined. Clinical correlation is essential. LAB L501.1110 >60 mL/min Low EST GFR 58 Result Comment: Non- GFR Calc LAB L501.1115 >60 mL/min Normal EST GFR - AA 70 Result Comment: GFR Calc LAB L501.1300 10-20 RATIO High BUN/CRE 21.3 LAB L501.2200 8.5-10.1 mg/dL CA Normal 9.0 LAB L501.5300 136-145 mmol/L NA Normal 143 LAB L501.5600 3.5-5.1 mmol/L K Normal 3.7 LAB L501.5900 98-107 mmol/L CL Normal 107 LAB L501.6100 21.0-32.0 mmol/L Normal CO2 28.0 LAB L501.6200 5-15 Normal GAP 8 Performed By: #### L500.2500 #### [facility] [address] [place], [address] DOWNTIME REPORT Observed: 09/29/2017 Status: F Source: [place] 12:12 PM [facility] Medical Records Department [address] [place] [address] Downtime Report MR#: [id number] Acct: [id number] Name: BELIA GILMORE Rep #: [id number] : 1940 77 From: Brett De La O PCP: Ron Warren MD Status: REG CLI This patient was seen during an EMR downtime September 12, 2017 - September 19, 2017. This patient may have a combination of paper and electronic documentation or all paper documentation. All documentation is viewable within the e-chart portion of [employer] for each patient visit. DOWNTIME REPORT Observed: 09/29/2017 Status: F Source: [place] 12:08 PM [facility] Medical Records Department [address] [place] [address] Downtime Report MR#: [id number] Acct: [id number] Name: BELIA GILMORE Rep #: [id number] : 1940 77 From: Brett De La O PCP: Ron Warren MD Status: REG RCR This patient was seen during an EMR downtime September 12, 2017 - September 19, 2017. This patient may have a combination of paper and electronic documentation or all paper documentation. All documentation is viewable within the e-chart portion of [employer] for each patient visit. STRESS TEST ECHO W/O Observed: 09/26/2017 Status: F Source: [place] CONTRAST 3:30 PM [facility] Cardiovascular Services [address] [place] [address] Stress Test Echo w/o Contrast MR#: [id number] Acct: [id number] Name: BELIA GILMORE Rep #: [id number] : 1940 77 From: Cosmo Balderas MD Primary Care: Ron Warren MD Status: REG CLI Ordering Dr: Cosmo Balderas MD Sex: F C Reason For Study: AFIB, DYSPNEA Stress Results Protocol: Dobutamine Stress Echocardiogram Maximum Predicted HR: 144 bpm Target HR: 122 bpm% Maximum Predicted HR: 90 % DurationHeart Rate Stage (mm:ss) (bpm) BPDos e Comment BASELINE 61 137/82 DSE- 10 MCG 3:11 60 137/7510.00 DSE- 20 MCG 3:07 85 146/7620.00 DSE- 30 MCG 4:40 12 9 143/7230.00NO AFIB, NO SX RECOVERY 83 147/82 Stress Duration: 10:58 mm:ss Maximum Stress HR: 129 bpm Baseline Echocardiogram Findings The estimated ejection fraction is 65 %. Stress Echo Wall motion Data Resting WMIntermediate WMStress WM Resting Wall Motion Wall Motion Stress No regional wall motion No regional wall motion abnormalities noted. abnormalities noted. EKG Data Normal intervals are noted. The patient was titrated from 10 mcg to a maximun of 30 mcg of dobutamine during the stress. The maximum heart rate attained was 129 beats per minute. This was 89% of maximum predicted heart rate. During dobutamine infusion, there were no ST or T wave changes noted to suggest ischemia. No clinical angina was noted. Interpretation Summary NORMAL ADEQUATE DOBS ECHO. NEGATIVE FOR ISCHEMIA BY EKG AND ECHO CRITERIA. NO ANGINA, NO SYMPTOMS. NO ARRHYTHMIAS NOTED. FINAL LVEF 75%. The estimated ejection fraction is 65 %. The patient was titrated from 10 mcg to a maximun of 30 mcg of dobutamine during the stress. Normal, adequate, dobutamine echocardiogram. Negative for ischemia by EKG and echocardiographic criteria. No anginal symptoms noted. No arrhythmias noted. Test terminated due to the attainment of target heart rate. Final LVEF of 75%. No complications. Ordering Physician: Cosmo Balderas MD Referring Physician: Cosmo Balderas Performed By: Brenda Vela, AME, RVT 09/26/17 1014 Date Cosmo Balderas MD CC: Cosmo Balderas MD; Ron Warren MD Date Dictated: 09/13/17 1003 Date Transcribed: 09/26/17 1014 Siding Installer: Signed PROTHROMBIN TIME W/INR Collected: 09/19/2017 Status: F Source: [place] 3:10 PM [facility] REPOSITORY TYPE CODE TESTS RESULT OUT OF RANGE REFERENCE UNITS LAB L300.4150 11.7-14.9 SECONDS High PROTIME 24.1 LAB L300.4200 Normal INR 2.2 Performed By: #### L300.3900 #### [facility] [address] [place], [address] TSH Collected: 09/14/2017 Status: F Source: [facility] 10:51 AM [facility] REPOSITORY TYPE CODE TESTS RESULT OUT OF RANGE REFERENCE UNITS LAB TSH(LOINC) 0.27-4.20 mcIU/mL TSH 1.82 Performed By: #### TSH, FT4, LIPID, CMP, GFR #### [address] [address] #### [facility] #### [address] [address] FT4 Collected: 09/14/2017 Status: F Source: [facility] 10:51 AM [facility] REPOSITORY TYPE CODE TESTS RESULT OUT OF RANGE REFERENCE UNITS LAB FT4(LOINC) 0.6-1.7 ng/mL Free T4 1.4 Performed By: #### TSH, FT4, LIPID, CMP, GFR #### [address] [address] #### [facility] #### [address] [address] LIPID Collected: 09/14/2017 Status: F Source: [facility] 10:51 AM [facility] REPOSITORY TYPE CODE TESTS RESULT OUT OF REFERENCE UNITS RANGE LAB CHOL(LOINC 131-200 mg/dL ) Cholesterol 159 Result Comment: Cholesterol Reference Interval: Less than 200 Desirable 200-239 Borderline high risk 240 and above High risk LAB TRIG(LOINC) 40-150 mg/dL Triglycerides 132 Result Comment: Triglyceride Reference Interval: Less than 150 Normal 150-199 Borderline high risk 200-499 High risk 500 or higher Very high risk LAB HD(LOINC) 35-90 mg/dL HDL Cholesterol 50 Result Comment: HDL Reference Interval: Less than 40 Low - high risk 60 or above Optimal/lowers risk LAB LDL(LOINC) 0-130 mg/dL LDL Cholesterol 83 Result Comment: LDL is a calculated result and requires a 12-hr fast. LDL Reference Interval: Less than 100 Optimal 100-129 Near or above optimal 130-159 Borderline high risk 160-189 High risk 190 and above Very high risk Performed By: #### TSH, FT4, LIPID, CMP, GFR #### [address] [address] #### VIDH #### [facility] [address] [place] [address] CMP Collected: 09/14/2017 Status: F Source: [facility] [employer] 10:51 AM [facility] REPOSITORY TYPE CODE TESTS RESULT OUT OF REFERENCE UNITS RANGE LAB GLU(LOINC) 83-110 mg/dL Glucose High Level 112 LAB NA(LOINC) 136-146 mEq/L Sodium Level 142 LAB K(LOINC) 3.5-5.1 mEq/L Potassium Level 4.2 LAB CL(LOINC) 98-107 mEq/L Chloride 106 LAB CO2(LOINC) 23-31 mEq/L CO2 24 LAB EBAL(LOINC mEq/L ) Electrolyte Balance 12.0 LAB BUN(LOINC) 7.0-18.0 mg/dL BUN 14.8 LAB CRE(LOINC) 0.6-1.2 mg/dL Creatinine Lvl (s) 1.0 LAB BC(LOINC) 7-27 ratio BUN/Creatinine 15 Ratio LAB CA(LOINC) 8.4-10.2 mg/dL Calcium Lvl 9.7 LAB PROT(LOINC 6.0-8.3 G/dL ) Total Protein 6.8 LAB ALB(LOINC) 3.4-4.8 G/dL Albumin Level 4.4 LAB GLB(LOINC) G/dL Globulin 2.4 LAB AG(LOINC) 1.1-2.5 ratio A/G Ratio 1.8 LAB BILT(LOINC 0.2-1.0 mg/dL ) Bili Total 0.4 LAB AP(LOINC) 40-135 IU/L Alk Phos 50 LAB AST(LOINC) 10-40 IU/L AST/SGOT 25 LAB ALT(LOINC) 10-35 IU/L ALT/SGPT 20 Performed By: #### TSH, FT4, LIPID, CMP, GFR #### [place] [address] [place], [place] [address] #### V[facility] #### [address] [address] .GFR Collected: 09/14/2017 Status: F Source: [facility] 10:51 AM [facility] REPOSITORY TYPE CODE TESTS RESULT OUT OF REFERENCE UNITS RANGE LAB GFRAA(LOINC ml/min/1.73 ) sqm GFR 64 [place] Result Comment: GFR Population mean for , Non- Americans Ages 20-29 = 116 mL/min/1.73 sq.m. Ages 30-39 = 107 mL/min/1.73 sq.m. Ages 40-49 = 99 mL/min/1.73 sq.m. Ages 50-59 = 93 mL/min/1.73 sq.m. Ages 60-69 = 85 mL/min/1.73 sq.m. Ages 70+ = 75 mL/min/1.73 sq.m. Chronic Kidney Disease: Less than 60 mL/min/1.73 square meters End Stage Renal Disease: Less than 15 mL/min/1.73 square meters LAB GFRNO(LOINC) ml/min/1.73sqm GFR Non- 53 Result Comment: GFR Population mean for , Non- Americans Ages 20-29 = 116 mL/min/1.73 sq.m. Ages 30-39 = 107 mL/min/1.73 sq.m. Ages 40-49 = 99 mL/min/1.73 sq.m. Ages 50-59 = 93 mL/min/1.73 sq.m. Ages 60-69 = 85 mL/min/1.73 sq.m. Ages 70+ = 75 mL/min/1.73 sq.m. Chronic Kidney Disease: Less than 60 mL/min/1.73 square meters End Stage Renal Disease: Less than 15 mL/min/1.73 square meters Performed By: #### TSH, FT4, LIPID, CMP, GFR #### [address] [address] #### [facility] #### [address] [address] VIDH Collected: 09/14/2017 Status: F Source: [facility] 10:51 AM [facility] REPOSITORY TYPE CODE TESTS RESULT OUT OF RANGE REFERENCE UNITS LAB VIDH(LOINC) ng/mL Vit. D 84 25-Hydroxy Result Comment: Interpretive Values Based on Total 25(OH)D: Severe Deficiency <20 ng/mL Mild to Moderate Deficiency 20-30 ng/mL Optimum Levels 30-100 ng/mL Toxicity Possible >100 ng/mL Performed By: #### TSH, FT4, LIPID, CMP, GFR #### [address] [address] #### VIDH #### [address] [address] PROTHROMBIN TIME W/INR Collected: 09/07/2017 Status: F Source: [place] 1:40 PM [facility] REPOSITORY TYPE CODE TESTS RESULT OUT OF RANGE REFERENCE UNITS LAB L300.4150 11.7-14.9 SECONDS High PROTIME 20.4 LAB L300.4200 Normal INR 1.7 Performed By: #### L300.3900 #### [facility] [address] [place], [address] ECHOCARDIOGRAM COMPLETE Observed: 09/06/2017 Status: F Source: [place] 9:38 AM [facility] REPOSITORY [facility] Cardiovascular Services [address] [place] [address] Echo Complete 09/02/17 1455 MR#: [id number] Acct: [id number] Name: BELIA GILMORE Rep #: [id number] : 1940 77 From: Csomo Balderas MD Attending Dr: Cosmo Balderas MD Status: REG CLI Ordering Dr: Cosmo Balderas MD Date: 09/02/17 Location: [facility] Sex: F C Admitted: Reason For Study: CHF Procedure This was a 2D Doppler, Color Flow transthoracic echocardiogram. Exam performed in department. Left Ventricle Normal size and thickness. The estimated ejection fraction is 65 %. Stage 1 diastolic dysfunction. No regional wall motion abnormalities noted. Right Ventricle Normal size and thickness. Normal systolic function. Atria Normal left atrium. Normal right atrium. Normal atrial septum. Mitral Valve The mitral valve is structurally normal. No prolapse or stenosis seen. Tricuspid Valve Normal tricuspid valve. Trivial tricuspid valve insufficiency. Right ventricular systolic pressure estimated to be 33 mmHg. Aortic Valve Normal aortic valve. Pulmonic Valve Normal pulmonic valve. Great Vessels Normal aortic root. Normal arch. Normal inferior vena cava. Inferior vena cava collapse with sniff. Pericardium/Pleural No pericardial effusion. MMode/2D Measurements AND Calculations LVIDd: 4.6 cm IVSd: 1.1 cm Ao root diam: 2.9 cm LVIDs: 2.9 cm LVPWd: 0.91 cm LA dimension: 4.2 cm RVDd: 2.7 cm FS: 36.8 % LAV(MOD-bp): 60.8 ml LA A4 area: 16.1 cm2 RA A4 area: 11.2 cm2 LAV(MOD-bp) Indexed: 31.4 ml/m2 LAV(MOD-sp2): 62.2 ml LAV(MOD-sp4): 46.8 ml Doppler Measurements AND Calculations MV E max jenni: 68.9 cm/sec Lat Peak E' Jenni: 8.8 cm/sec Med Peak E' Jenni: 6.6 cm/sec MV A max jenni: 85.0 cm/sec E/E' lat: 7.8 E/E' med: 10.4 MV E/A: 0.81 Ao V2 max: 133.5 cm/sec LV V1 max: 128.0 cm/sec PA V2 max: 97.3 cm/sec Ao max P.1 mmHg LV V1 max P.6 mmHg TR max jenni: 258.3 cm/sec TR max P.7 mmHg Interpretation Summary The estimated ejection fraction is 65 %. Stage 1 diastolic dysfunction. Trivial tricuspid valve insufficiency. Right ventricular systolic pressure estimated to be 33 mmHg. Compared to echo report dated 10/26/2014, no appreciable chanes noted. RVSP has increased from 24 to 33 mm Hg. Ordering Physician: Cosmo Balderas Performed By: Brenda Vela RDCS, RVT 09/06/17936 Date Cosmo Balderas MD CC: Cosmo Balderas MD; Ron Warren MD Date Dictated: 09/02/17 1455 Date Transcribed: 09/06/17936 Siding Installer: Signed PROTHROMBIN TIME W/INR Collected: 08/30/2017 Status: F Source: [place] 2:03 PM [facility] REPOSITORY TYPE CODE TESTS RESULT OUT OF RANGE REFERENCE UNITS LAB L300.4150 11.7-14.9 SECONDS High PROTIME 19.5 LAB L300.4200 Normal INR 1.6 Performed By: #### L300.3900 #### [facility] [address] [place], [address] CARDIOLOGY VISIT Observed: 08/26/2017 Status: F Source: [place] REPORT 1:39 PM [facility] REPOSITORY [facility] [address] [place] [address] OFFICE VISIT Date of Service: 08/26/17 MR#: [id number] Acct: [id number] Name: BELIA GILMORE Rep #: [id number] : 1940 Provider: Cosmo Balderas MD Age/Sex: 77/F Location: [facility] Status: Signed HPI HPI Chief Complaint: Routine f/u Details: HPI Referring physician: Dr. Ron Warren History of present illness the patient is a very pleasant 77-year-old female, nondiabetic, nonsmoker, with a history of hypercholesterolemia, currently on Lipitor and a former patient of Dr. Rangel. At that time she was seen by Dr. Rangel about 15 years ago and had a stress test which was reportedly negative per the patient. Originally I saw the patient in consultation on 10/26/14 after she had tripped and fallen over some sticks injuring her left lower leg. This proceeded to an infection over a period of days and she presented with lower extremity cellulitis requiring surgical debridement. She had repeat surgery on 10/21/14, and then again on 10/25/14. Subsequent to her 3rd surgery the patient developed paroxysmal atrial fibrillation with RVR, confirmed by adenosine administration. She was treated with a Cardizem drip, and then spontaneously converted. Since that time the patient has been discharged from the hospital In underwent successful flap surgery by plastic surgery over her left jefferson. As part of her cardiac workup she underwent an echocardiogram on 10/26/2014 which demonstrated an LVEF of 65%, and RVSP of 24 mm Hg. She was treated with baby aspirin and Cardizem. The patient had T-wave inversion anteriorly after she converted and she subsequently underwent noninvasive stress testing which was negative for inducible ischemia. She had a normal non- walking nuclear stress test on 10/28/14. Since her last visit, the patient has been doing fairly well. She suffered a mechanical fall while in [place] tripping over a curb required 12 chanda in her r knee. Subsequent to that she has recovered and it is well healed. She reports occasional palpitations and mild bilateral trace lower extremity edema since initiating Cardizem therapy. Over the Last 2 Weeks, the Patient Has Had Worsening Dyspnea on Exertion, Shortness of Breath, and Lower Extremity Edema but no chest pain or angina. Patient routinely at this time of year has worsening shortness of breath due to pollen. It is to the point now where she can only walk about 2 flights of stairs before she is profoundly dyspneic. She is taking and tolerating her medicines well. In our office today her blood pressure is 132/70, and pulse is 62 and regular. Her physical exam is as below. Her lipids are pending. EKG Previously demonstrates normal sinus rhythm, normal axis, normal intervals, no evidence of previous myocardial infarction. Intake Vital Signs08/26/17 Height 5 ft 4 in Intake Visit Reasons: F/U FROM EVENT MONITOR Allergies cephalexin monohydrate [From Keflex] Allergy (Verified 08/26/17 13:09) Hives ethchlorvynol [From Placidyl] Allergy (Verified 08/26/17 13:09) Unknown NSAIDS (Non-Steroidal Anti-Inflamma Allergy (Verified 08/26/17 13:09) Unknown Penicillins [PCN] Allergy (Verified 08/26/17 13:09) Unknown Sulfa (Sulfonamide Antibiotics) Allergy (Verified 08/26/17 13:09) Rash sulfamethoxazole [From Septra] Allergy (Verified 08/26/17 13:09) Unknown trimethoprim [From Septra] Allergy (Verified 08/26/17 13:09) Unknown Medications Atorvastatin Calcium [Lipitor] 20 mg PO QHS 10/17/14 [History Confirmed 07/11/17] Ergocalciferol [Vitamin D] 5,000 unit PO DAILY 10/17/14 [History Confirmed 07/11/17] Levothyroxine [Synthroid] 100 mcg PO DAILY 10/17/14 [History Confirmed 07/11/17] Sertraline HCl [Zoloft] 100 mg PO DAILY 10/17/14 [History Confirmed 07/11/17] Acetaminophen [Tylenol Tablet] 650 mg PO Q6H PRN PRN tab 07/13/17 [Rx] Albuterol Inhaler [Ventolin Hfa] 2 puff INHALATION Q4H PRN PRN #1 inhaler 07/13/17 [Rx] warfarin 2.5 mg tablet 2.5 mg PO QDAY #30 tab 07/18/17 [Rx Confirmed 08/15/17] warfarin 1 mg tablet 1 mg PO .COMPLEX #30 tab 08/15/17 [Rx Confirmed 08/15/17] diltiazem CD 120 mg capsule,extended release 24 hr 120 mg PO BID cap 08/26/17 [History Confirmed 08/26/17] hydrochlorothiazide 12.5 mg tablet 12.5 mg PO QAM #30 tab 08/26/17 [Rx Confirmed 08/26/17] tocilizumab 162 mg/0.9 mL subcutaneous syringe 162 mg SC Q2W ml 08/26/17 [History Confirmed 08/26/17] Nurse's Note: New onset SOB when climbing stairs, BLE edema and fatigue since increasing cardizem. [facility] Medical History DVT (deep venous thrombosis) (Chronic) Hyperlipidemia (Chronic) Paroxysmal atrial fibrillation (Chronic) Hypothyroidism (Chronic) Immunosuppressed status (Chronic) 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 (Chronic) Peptic ulcer disease (Chronic) Rheumatoid arthritis (Chronic) Atrial fibrillation with RVR (Resolved) Cellulitis of left lower extremity (Resolved) GI bleed (Resolved) History of Clostridium difficile (Inactive) Surgical History H/O colectomy (Chronic) H/O shoulder surgery (Chronic) H/O total hysterectomy (Chronic) History of arthroplasty of left knee (Chronic) History of bunionectomy of both great toes (Chronic) History of left heart catheterization (Chronic 1999) History of tonsillectomy and adenoidectomy (Chronic) Hx of cholecystectomy (Chronic) surgical debridement left lower extremity (Chronic 10/2014) Family History Father CAD (coronary artery disease) Mother Breast cancer breast Social History Smoking Status: Never smoker ROS Const Const: Positive for weakness and fatigue; negative for difficulty sleeping, frequent falls, headache(s) or excessive sweating Eyes Eyes: Negative for loss of peripheral vision, transient loss of vision, blurry vision or double vision ENT ENT: Negative for Nosebleed/epistaxis, balance problems, dizziness or headache(s) Cardio Chest Pain: No Edema: Bilateral (Non pitting) Muscle aches with walking: None Resp Respiratory: Positive for SOB with activity; negative for SOB at rest, SOB orthopnea\SOB lying down or paroxysmal nocturnal dyspnea GI GI: Negative nausea or heartburn : Negative for hematuria Musc Musc: Negative for muscle aches/ myalgia, muscle weakness, joint pain or balance problems Skin Skin: Negative non-healing lesions, unusual bruising or rash Neuro Neuro: Positive for weakness; negative for blurry vision, dizziness, lightheadedness, orthostatic symptoms, double vision, frequent falls or headache(s) Nicholas Hematologic/Lymphatic: Negative for easy bruising Endo Endo: Positive for fatigue; negative for excessive sweating or increased thirst/drinking Psych Psych: Negative for anxiety or depression Allergy Allergy/Immunology: Negative for hives, Negative for rash Cardiology Exam Const Appearance: cooperative, healthy appearing and no acute distress Nutritional Appearance: well nourished Orientation: alert, oriented x3 and oriented to person Head Head: normal to inspection, atraumatic and normocephalic Nose: external nose normal Face and Sinus: face symmetric Mouth: oral mucosae normal Eyes General: appearance normal, both eyes and all related structures Eyelids: eyelids normal Conjunctivae: conjunctivae normal Pupils: PERRL and normal by confrontation EOM: EOM intact bilaterally Neck Neck: normal visual inspection and full ROM Carotids: normal carotid upstroke Chest Chest inspection: normal inspection of the chest Auscultation: Bilateral: Clear to Auscultation Cardio Palpation: normal PMI Rate: regular rate Rhythm: regular rhythm Heart sounds: S1 normal and S2 normal GI GI: normal to inspection, no hepatosplenomegaly and bowel sounds present Neuro General: alert, oriented x3, awake, CN's II-XI intact bilaterally and moves all extremities Skin Skin: no rashes or lesions noted Extremities Pulses: Normal: Right Femoral Pulse, Left Femoral Pulse, Right Dorsalis Pedis Pulse, Left Dorsalis Pedis Pulse, Right Posterior Tibial Pulse, Left Posterior Tibial Pulse, Right Radial Pulse, Left Radial Pulse Lower Extremity Edema: None: Bilateral Psych Psychological: normal affect Assessment AND Plan 1. Paroxysmal atrial fibrillation I48.0 Plan 1. Paroxysmal atrial fibrillation: The patient appears to be normal sinus rhythm at this time. I am somewhat concerned given her recent exacerbation of dyspnea on exertion although it appears at this time of year she does have trouble with breathing due to pollen. To be sure, I recommend that she undergo a dobutamine echocardiogram to determine if she has any areas of ischemia. In addition I recommend hydrochlorothiazide 12.5 mg p.o. daily for her lower extremity edema. She appears to be in sinus rhythm at this time. Given her history of DVT and paroxysmal atrial fibrillation recommend lifelong Coumadin therapy. Continue Cardizem CD 120 mg p.o. twice daily. In addition I recommend she undergo a repeat 2D echo with Doppler given the significant worsening of her lower extremity edema to determine if she has any worsening pulmonary pressures. If her stress test is markedly abnormal for ischemia, she may require a diagnostic coronary angiogram. Orders Orders: 2. Hyperlipidemia E78.5 Plan 2. Hyperlipidemia: We are awaiting a repeat lipid profile. Continue Lipitor. 3. Return office in 6 months This note was generated using a voice recognition system and there may be incorrect words, spelling or punctuation that were not noted when reviewing the office note prior to saving. Plan Detail Other Orders Orders: Other Medications New: Discontinued: prednisone TAKE 4 TABLETS BY MOUTH DAILY WITH FOOD FOR 3 DAY10 mg PO UD Zoë Kilner S, THEN TAKE 3 TABLETS BY MOUTH DAILY WITH FOOD FOR 3 DAYS, THEN TAKE 2 TABLETS BY MOUTH DAILY WITH FOOD FOR 3 DAYS, THE N TAKE 1TABLETS BY MOUTH DAILY WITH FOOD FOR 3 DAYS, THEN ST OP Discontinued Reason: Order Completed Follow Up +6M (Andrey) Coding Level of Care Code Off vis,est,level 3 Diagnoses Paroxysmal atrial fibrillation I48.0 Hyperlipidemia E78.5 Coding Level of Care Code Off vis,est,level 3 Diagnoses Paroxysmal atrial fibrillation I48.0 Hyperlipidemia E78.5 08/26/17 1149 <Electronically signed by Cosmo Balderas MD> Date Cosmo Beck Signature: Date (if applicable) CC: Ron Warren MD PROTHROMBIN TIME W/INR Collected: 08/22/2017 Status: F Source: [place] 2:23 PM [facility] REPOSITORY TYPE CODE TESTS RESULT OUT OF RANGE REFERENCE UNITS LAB L300.4150 11.7-14.9 SECONDS High PROTIME 21.3 LAB L300.4200 Normal INR 1.8 Performed By: #### L300.3900 #### [facility] [address] [place], [place], [address] [phone] PROTHROMBIN TIME W/INR Collected: 08/13/2017 Status: F Source: [place] 11:34 AM [facility] REPOSITORY TYPE CODE TESTS RESULT OUT OF RANGE REFERENCE UNITS LAB L300.4150 11.7-14.9 SECONDS High PROTIME 19.5 LAB L300.4200 Normal INR 1.6 Performed By: #### L300.3900 #### [facility] [address] [place], [place], [address] PROTHROMBIN TIME W/INR Collected: 08/02/2017 Status: F Source: [place] 3:17 PM [facility] REPOSITORY TYPE CODE TESTS RESULT OUT OF RANGE REFERENCE UNITS LAB L300.4150 11.7-14.9 SECONDS High PROTIME 17.8 LAB L300.4200 Normal INR 1.5 Performed By: #### L300.3900 #### [facility] [address] [place], [address] PROTHROMBIN TIME W/INR Collected: 07/25/2017 Status: F Source: [place] 12:57 PM [facility] REPOSITORY TYPE CODE TESTS RESULT OUT OF RANGE REFERENCE UNITS LAB L300.4150 11.7-14.9 SECONDS High PROTIME 15.8 LAB L300.4200 Normal INR 1.3 Performed By: #### L300.3900 #### [facility] [address] [place], [place], [address] [phone] PROTHROMBIN TIME W/INR Collected: 07/21/2017 Status: F Source: [place] 10:49 AM [facility] REPOSITORY Order Comment: Comments: STANDING ORDER Comments: STANDING ORDER TYPE CODE TESTS RESULT OUT OF RANGE REFERENCE UNITS LAB L300.4150 11.7-14.9 SECONDS Normal PROTIME 14.7 LAB L300.4200 Normal INR 1.2 Performed By: #### L300.3900 #### [facility] [address] [place], [address] 12 LEAD ELECTROCARDIOGRAM Observed: 07/15/2017 Status: F Source: [place] 1:10 PM [facility] REPOSITORY [facility] Cardiovascular Services [address] [place] [address] 12 Lead EKG 07/11/171946 MR#: [id number] Acct: [id number] Name: BELIA GILMORE Rep #: [id number] : 1940 77 From: Davidson Felder MD Attending Dr: Jessica Mendez Status: DIS IN Ordering Dr: Sharmaine Melendez MD Date: 07/11/17 Location: [facility] Sex: F C Admitted: 07/11/17 Test Reason : NEW ADMIT Blood Pressure : / mmHG Vent. Rate : 055 BPM Atrial Rate : 055 BPM P-R Int : 148 ms QRS Dur : 076 ms QT Int : 446 ms P-R-T Axes : 025 019 036 degrees QTc Int : 426 ms Sinus bradycardia Otherwise normal ECG When compared with ECG of 25-OCT-2014 22:19, Nonspecific T wave abnormality has replaced inverted T waves in Anterior leads Confirmed by DAVIDSON FELDER MD ([id number]), deputy editor in chief LUCI DE LA O ([id number]) on 07/15/2017 1:09:41 PM Referred By: KENZIE MELENDEZ Confirmed By:DAVIDSON FELDER MD 07/15/17 1309 Date Davidson Felder MD CC: Jessica Mendez; Sharmaine Melendez MD; OUT OF TOWN DOCTOR; RON WARREN Signed DISCHARGE SUMMARY Observed: 07/14/2017 Status: F Source: [place] 6:54 AM [facility] REPOSITORY [facility] Medical Records Department [address] [place] [address] Discharge Summary 07/13/17 1640 MR#: [id number] Acct: [id number] Name: BELIA GILMORE Rep #: [id number] : 1940 77 From: Sylvester Mendez DO PCP: RON WARREN Status: DIS IN Y Location: [place] [address] Discharge Date and Diagnosis - Problem List Patient Problems: Active and Suspected Problems (Last Updated 05/16/17 @ 13:54 by Zoë Duke) Atrial fibrillation with RVR (Acute) Date of Admission: 07/11/17 Date of Discharge: 07/13/17 - Primary Discharge Diagnosis Active and Suspected Problems (Last Updated 05/16/17 @ 13:54 by Zoë Duke) Atrial fibrillation with RVR (Acute) Influenza B (Acute) Influenzal bronchiolitis (Acute) Hyperglycemia secondary to high-dose steroids - Secondary Discharge Diagnosis Chronic Problems (Last Updated 05/16/17 @ 13:54 by Zoë Duke) GI (gastrointestinal bleed) (Chronic 01/2017) DVT (deep venous thrombosis) (Chronic) right lower leg Hyperlipidemia (Chronic) Paroxysmal atrial fibrillation (Chronic) Hypothyroidism (Chronic) 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 (Chronic) Rheumatoid arthritis (Chronic) Mixed anxiety and depressive disorder (Chronic) Immunosuppressed status (Chronic) on Humira and methotrexate History of peptic ulcer disease (Chronic) Hospital Course and Treatment Imaging Results: Laboratory Tests WBC 2.7 L RBC 4.32 Hgb 12.8 Hct 40.3 MCV 93.3 MCH 29.6 MCHC 31.8 L RDW 16.9 H RDW Differential 58.0 H WBC RBC Hgb Hct MCV MCH MCHC RDW RDW Differential WBC RBC Hgb Hct WBC RBC Hgb Dr. Cosmo [facility]deras[facility] Operations: None Procedures: None Summary of Care Provided: The patient is a 77 year old F with a past medical history of paroxysmal atrial fibrillation, hypothyroidism, hyperlipidemia, depression and rheumatoid arthritis on a twice monthly biologic injectable who was sent to the emergency room from her primary care physician's office on 07-27 due to wheezing. She had previously been diagnosed with influenza B and was started on Tamiflu. She received 2 DuoNeb aerosols in the emergency department and developed paroxysmal atrial fibrillation with rapid ventricular response. EKG showed the heart rate to be in the 140s. Chest x-ray showed no infiltrates. Pulse ox was 98- 100% on 2 L. CTA of the chest showed no pulmonary emboli. Significant lab at admission included a white blood cell count of 3.5 and low potassium on labs obtained from PCP office. TSH was normal at 2.17. She was started on Cardizem and transferred to the progressive care unit where she converted to normal sinus rhythm. Intravenous steroids and aerosolized bronchodilators were ordered. She was continued on Tamiflu. Dr. Balderas was consulted. Serial troponins were negative. Dr. Balderas felt the atrial fibrillation was related to the stress of influenza B and recommended we continue to treat her respiratory illness. He did not feel anticoagulation or repeat ECHO and stress were indicated. She gradually improved and on 07/13/17 she felt ready for discharge. Pulse ox ranged from 94-98% on RA on the day of discharge and she did not desaturate with ambulation. Auscultation of the lungs revealed them to be CTA without wheezing. She completed 5 days of Tamiflu while in the hospital and it was discontinued. She was discharged with Prescriptions for Mucinex and a prednisone taper. She will follow-up with her primary care physician, Dr. Reid Warren, in 7-[address] Balderas recommended a 30 day event monitor and a prescription was written prior to discharge and she will follow up with cardiology to obtain a monitor when one is available. This note was generated with Vungle dictation software. It may contain incorrect words, spelling, and punctuation that were not noted in checking the note before signing. Discharge Activity: - - Avoid exposure to any strong smells such as bleach, cleaning products, strong colognes or perfumes, paint fumes and smoke of any kind. Avoid sudden exposure to cold air because this can cause bronchospasm. You may want to cover your mouth when you go outside in the winter. Avoid exposure to anyone who is sick with a cough or sore throat. Call your doctor if you observe: Fever of 101 or Higher, Shortness of breath, Dizziness, Chest pain, - - any increase in cough or change in the sputum Home Medications: Medications to take at Discharge Atorvastatin Calcium [Lipitor] 20 mg PO QHS 10/17/14 Ergocalciferol [Vitamin D] 5,000 unit PO DAILY 10/17/14 Levothyroxine [Synthroid] 100 mcg PO DAILY 10/17/14 Sertraline HCl [Zoloft] 100 mg PO DAILY 10/17/14 tocilizumab 162 mg/0.9 mL subcutaneous syringe 162 mg SC Q2W ml 05/16/17 Diltiazem CD [Cardizem CD] 120 mg PO DAILY 07/11/17 Acetaminophen [Tylenol Tablet] 650 mg PO Q6H PRN PRN tablet 07/13/17 Albuterol Inhaler [Ventolin Hfa] 2 puff INHALATION Q4H PRN PRN #1 inhaler 07/13/17 Guaifenesin [Mucinex] 600 mg PO BID #14 tab 07/13/17 Prednisone 10 mg PO UD #30 tab 07/13/17 Following Prescrptions Were Given to Patient: Albuterol Inhaler [Ventolin Hfa] 2 puff INHALATION Q4H PRN PRN #1 inhaler PRN Reason: SOB/wheezing Prednisone 10 mg PO UD #30 tab Guaifenesin [Mucinex] 600 mg PO BID #14 tab Other Amb Orders: 30-Day Event Recorder [[facility]] Location: None Selected Primary Care Physician: Ron Warren [Primary Care Provider] - Please follow up with your Primary Care Physician in: 7-10 days Disposition: Home Minutes spent on discharge:: 30 Medical Necessity - Tobacco Use Smoking Status: Never smoker Meaningful Use Info Meaningful Use Diagnoses (Choose all that apply): None applicable Code Visit Inpatient E AND M: 67606 Disch Hosp 07/14/17 0654 <Electronically signed by Sylvester Mendez DO> Date Sylvester Langignles Signature (if applicable): Date CC: Jessica Mendez; RON WARREN Signed DISCHARGE INSTRUCTION Observed: 07/13/2017 Status: F Source: [place] 4:38 [facility] Medical Records Department [address] [place] [address] Instructions for Home/Discharge Instructions 07/13/17 1627 MR#: [id number] Acct: [id number] Name: BELIA GILMORE Rep #: [id number] : 1940 77 From: Sylvester Mendez DO PCP: RON WARREN Status: ADM IN - Discharge Diagnoses Current Active Problems: Current Active and Chronic Problems (Last Updated 05/16/17 @ 13:54 by Zoë Duke) PAF (paroxysmal atrial fibrillation) (Acute) Influenza B (Acute) Influenzal bronchiolitis (Acute) You will use the following diet at home:: Other - low carb until you are off the prednisone Your food should be the consistency of: Regular Your liquids should be the consistency of: Regular/Thin Discharge Activity: - - Avoid exposure to any strong smells such as bleach, cleaning products, strong colognes or perfumes, paint fumes and smoke of any kind. Avoid sudden exposure to cold air because this can cause bronchospasm. You may want to cover your mouth when you go outside in the winter. Avoid exposure to anyone who is sick with a cough or sore throat. Call your doctor if you observe: Fever of 101 or Higher, Shortness of breath, Dizziness, Chest pain, - - any increase in cough or change in the sputum Additional Instructions: Your blood sugars are only mildly elevated from the steroids. Watch your carbohydrate intake for the next week and make sure to drink enough water to stay well hydrated. When the blood sugar is elevated it makes you urinate a lot. It is not uncommon for a bacterial pneumonia to follow a viral infection......perico if you are taking immunosuppressive drugs for Rheumatoid. If thing suddenly get worse with increased cough, purulent sputum, fevers, chills call your PCP to be seen or come to the ER. You are no longer contagious. Take it easy! The flu is a serious illness and it takes a lot out of you......it is going to take you a while to get your strength back. Pending Tests on Discharge: none Allergies/Adverse Reactions: Allergies cephalexin monohydrate [From Keflex] Allergy (Verified 05/16/17 13:45) Hives ethchlorvynol [From Placidyl] Allergy (Verified 05/16/17 13:45) Unknown NSAIDS (Non-Steroidal Anti-Inflamma Allergy (Verified 05/16/17 13:45) Unknown Penicillins [PCN] Allergy (Verified 05/16/17 13:45) Unknown Sulfa (Sulfonamide Antibiotics) Allergy (Verified 05/16/17 13:45) Rash sulfamethoxazole [From Septra] Allergy (Verified 05/16/17 13:45) Unknown trimethoprim [From Septra] Allergy (Verified 05/16/17 13:45) Unknown Medications to take at Discharge Atorvastatin Calcium [Lipitor] 20 mg PO QHS 10/17/14 Ergocalciferol [Vitamin D] 5,000 unit PO DAILY 10/17/14 Levothyroxine [Synthroid] 100 mcg PO DAILY 10/17/14 Sertraline HCl [Zoloft] 100 mg PO DAILY 10/17/14 tocilizumab 162 mg/0.9 mL subcutaneous syringe 162 mg SC Q2W ml 05/16/17 Diltiazem CD [Cardizem CD] 120 mg PO DAILY 07/11/17 Acetaminophen [Tylenol Tablet] 650 mg PO Q6H PRN PRN tablet 07/13/17 Albuterol Inhaler [Ventolin Hfa] 2 puff INHALATION Q4H PRN PRN #1 inhaler 07/13/17 Guaifenesin [Mucinex] 600 mg PO BID #14 tab 07/13/17 Prednisone 10 mg PO UD #30 tab 07/13/17 The following prescriptions were given: Albuterol Inhaler [Ventolin Hfa] 2 puff INHALATION Q4H PRN PRN #1 inhaler PRN Reason: SOB/wheezing Prednisone 10 mg PO UD #30 tab Guaifenesin [Mucinex] 600 mg PO BID #14 tab Orders to be completed after discharge: 30-Day Event Recorder [[facility]] Location: None Selected Primary Care Physician: Ron Warren [Primary Care Provider] - Please follow up with your Primary Care Physician in: 7-10 days Proposed Discharge Date: 07/13/17 07/13/17 6947 <Electronically signed by Sylvester Mendez DO> Date M CTaylor Mendez DO CC: Cosmo Balderas MD; RON WARREN BEDSIDE GLUCOSE Collected: 07/13/2017 Status: F Source: [place] 4:07 PM [facility] REPOSITORY TYPE CODE TESTS RESULT OUT OF REFERENCE UNITS RANGE LAB L501.080 70-110 mg/dL High BEDSIDE GLU 218 Result Comment: MANAGEMENT OF PATIENT CARE PER NURSING PROTOCOL Performed By: #### L501.080 #### [facility] Point of Care [address] [place] [address] BEDSIDE GLUCOSE Collected: 07/13/2017 Status: F Source: [place] 10:53 AM [facility] REPOSITORY TYPE CODE TESTS RESULT OUT OF REFERENCE UNITS RANGE LAB L501.080 70-110 mg/dL High BEDSIDE GLU 196 Result Comment: MANAGEMENT OF PATIENT CARE PER NURSING PROTOCOL Performed By: #### L501.080 #### [facility] Point of Care [address] [place] [address] BEDSIDE GLUCOSE Collected: 07/13/2017 Status: F Source: [place] 6:49 AM [facility] REPOSITORY TYPE CODE TESTS RESULT OUT OF REFERENCE UNITS RANGE LAB L501.080 70-110 mg/dL High BEDSIDE GLU 168 Result Comment: MANAGEMENT OF PATIENT CARE PER NURSING PROTOCOL Performed By: #### L501.080 #### [facility] Point of Care [address] [place] [address] BEDSIDE GLUCOSE Collected: 07/12/2017 Status: F Source: [place] 9:54 PM [facility] REPOSITORY TYPE CODE TESTS RESULT OUT OF REFERENCE UNITS RANGE LAB L501.080 70-110 mg/dL High BEDSIDE GLU 156 Result Comment: MANAGEMENT OF PATIENT CARE PER NURSING PROTOCOL Performed By: #### L501.080 #### [facility] Point of Care [address] [place] [address] BEDSIDE GLUCOSE Collected: 07/12/2017 Status: F Source: [place] 4:43 PM [facility] REPOSITORY TYPE CODE TESTS RESULT OUT OF REFERENCE UNITS RANGE LAB L501.080 70-110 mg/dL High BEDSIDE GLU 178 Result Comment: MANAGEMENT OF PATIENT CARE PER NURSING PROTOCOL Performed By: #### L501.080 #### [facility] Point of Care [address] [place] [address] TROPONIN-I Collected: 07/12/2017 Status: F Source: [place] 1:10 PM [facility] REPOSITORY Order Comment: 'TROP' Serial specimen #1, #2, #3, or #4: 4 TYPE CODE TESTS RESULT OUT OF RANGE REFERENCE UNITS LAB L501.4010 <0.06 ng/mL Normal < 0.02 TROPONIN-I Result Comment: TROPONIN-I EXPECTED VALUES <0.05 NEGATIVE 0.06 - 0.59 AT RISK OF TN > OR = 0.60 SUGGEST TN Performed By: #### L501.4010 #### [facility] [address] [place], [address] BEDSIDE GLUCOSE Collected: 07/12/2017 Status: F Source: [place] 11:34 AM [facility] REPOSITORY TYPE CODE TESTS RESULT OUT OF REFERENCE UNITS RANGE LAB L501.080 70-110 mg/dL High BEDSIDE GLU 147 Result Comment: MANAGEMENT OF PATIENT CARE PER NURSING PROTOCOL Performed By: #### L501.080 #### [facility] Point of Care [address] [place] [place], [place] [address] CONSULTATION Observed: 07/12/2017 Status: F Source: [place] 10:03 AM [facility] REPOSITORY [facility] Medical Records Department [address] [place] [id number] Consultation 07/12/17 0956 MR#: [id number] Acct: [id number] Name: BELIA GILMORE Rep #: [id number] : 1940 77 From: Cosmo Balderas MD PCP: RON WARREN Status: ADM IN Location: [place] [address] Problem List (1) PAF (paroxysmal atrial fibrillation) Status: Acute (2) Hyperlipidemia Status: Chronic Reason for Consult Date of Consultation: 07/12/17 Reason for Consultation: Paroxysmal atrial fibrillation, hypertension, hypothyroidism, hyperlipidemia History of Present Illness: The patient is a 77 year old F, patient of mine, nondiabetic, non-smoker, with a history of hypercholesterolemia, currently on Lipitor, and former patient of Dr. Rangel. I originally saw the patient in consultation on 10/26/14 after she had tripped and fallen over some sticks injuring her left lower leg. This proceeded to an infection or period of days and presented with left lower extremity cellulitis requiring surgical debridement. This occurred on 10/21/14 and then again on 10/25/14. After her third surgery she developed paroxysmal atrial fibrillation with rapid ventricular response and was treated with a Cardizem drip which then spontaneously converted. Patient underwent successful flap surgery by plastic surgery over her left jefferson several years ago. Her cardiac workup included an echocardiogram which demonstrated an EF of 65% and RVSP of 24 mmHg. She was treated with baby aspirin and Cardizem. She underwent a noninvasive stress test which was negative for inducible ischemia after her wound had healed. Patient suffered a mechanical fall in [place] approximately 1 years ago tripping over a curb requiring 12 chanda in her right knee. This is subsequently well-healed. Patient has been doing well up until around Tuesday when she developed flulike symptoms and was diagnosed with influenza and started on Tamiflu on of last week. Patient's shortness of breath worsened on Tuesday sought medical attention with her PCP. The patient was treated with nebulizer therapy and developed palpitations and worsening shortness of breath. Patient sought medical attention on the day of admission and she was found to be in rapid atrial fibrillation after a nebulizer treatment. Patient was given Cardizem and subsequently converted back to normal sinus rhythm. Prior to her illness she denied any palpitations, chest pain, shortness of breath or dyspnea on exertion. She has had no subsequent falls, presyncope or syncope. She is not on long-term anticoagulation. Since admission she had one episode of atrial fibrillation with rapid ventricular response with minor aberrancy noted. She is currently in normal sinus rhythm. Her troponins have been negative. Patient stated that she did not note her heart was racing, and denied knowing when she goes in and out of atrial fibrillation. [] Past Medical History Allergies/Adverse Reactions: Allergies cephalexin monohydrate [From Keflex] Allergy (Verified 05/16/17 13:45) Hives ethchlorvynol [From Placidyl] Allergy (Verified 05/16/17 13:45) Unknown NSAIDS (Non-Steroidal Anti-Inflamma Allergy (Verified 05/16/17 13:45) Unknown Penicillins [PCN] Allergy (Verified 05/16/17 13:45) Unknown Sulfa (Sulfonamide Antibiotics) Allergy (Verified 05/16/17 13:45) Rash sulfamethoxazole [From Septra] Allergy (Verified 05/16/17 13:45) Unknown trimethoprim [From Septra] Allergy (Verified 05/16/17 13:45) Unknown Home Medications: Ambulatory Orders Medication Instructions Recorded Atorvastatin Calcium [Lipitor] 20 mg PO QHS 10/17/14 Past Medical History (Chronic Problems): Chronic Problems (Last Updated 05/16/17 @ 13:54 by Zoë Duke) GI (gastrointestinal bleed) (Chronic 01/2017) DVT (deep venous thrombosis) (Chronic) right lower leg Hyperlipidemia (Chronic) Paroxysmal atrial fibrillation (Chronic) Hypothyroidism (Chronic) 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 (Chronic) Rheumatoid arthritis (Chronic) Mixed anxiety and depressive disorder (Chronic) Immunosuppressed status (Chronic) on Humira and methotrexate History of peptic ulcer disease (Chronic) Psychiatric History: Anxiety, Depression FINANCIAL 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: No pertinent FINANCIAL SERVICES CONSULTANT history - *Family History Maternal Family History: Family History (Last Reviewed 05/16/17 @ 13:45 by Zoë Duke) Father CAD (coronary artery disease) Mother Breast cancer History Items: Cancer - mother had breast CA in her 90's, Unknown Paternal Family History: Family History (Last Reviewed 05/16/17 @ 13:45 by Zoë Duke) Father CAD (coronary artery disease) Mother Breast cancer History Items: Heart Disease, - - aneurysm in her father who from CAD and aneurym at 74 Sibling Family History: Family History (Last Reviewed 05/16/17 @ 13:45 by Zoë Duke) Father CAD (coronary artery disease) Mother Breast cancer History Items: Cancer - she had a brother with throat cancer, - - she had a sister with severe epilepsy who lived in [place] and Smoking Status: Never smoker Review of Systems - Review of Systems General: Denies: Fever, Night Sweats, Fatigue Cardiovascular: Reports: Shortness of Breath at Rest. Denies: Chest Discomfort, Shortness of Breath, Orthopnea, PND, Peripheral Edema, Palpitations, Lightheadedness, Dizziness, Near Syncope, Syncope Respiratory: Denies: Cough, Sputum Production, Hemoptysis Gastrointestinal: Denies: Hematemesis, Hematochezia, Melena Genitourinary: Denies: Dysuria, Hematuria Skin: Denies: Rash Subjectve: Currently sitting in a chair resting comfortably, no acute distress. Objective: Vital Signs Temp Pulse Resp BP Pulse Ox 98.4 F 80 18 128/57 H 97 07/12/17 09:30 07/12/17 09:30 07/12/17 09:30 07/12/17 09:30 07/12/17 09:30 Oxygen Flow Rate (L/min) 2 Oxygen Delivery Method Room Air Weight: 194 lb 3.636 oz Body Mass Index (BMI) 33.3 Intake and Output for Last 24 Hours Intake Total 736 / 736 Balance 736 / 736 General: Awake, Alert, Oriented x 3 HEENT: PERRL, EOMI, Sclera Non Icteric Neck: Supple, Good ROM, No Lymph Node Enlargement Lungs: Clear to auscultation Cardiovascular: Regular Rhythm, Normal S1, Normal S2, No Murmurs, No Rubs, No Gallops Vascular: No Carotid Bruits, Normal Femoral Pulses, Normal Radial Pulses, Normal Dorsalis Pedal Pulse, Normal Posterior Tibial Pulses Abdomen: Bowel Sounds Present, Soft, Non Tender, No HSM, No Organomegaly Extremities: No Cyanosis, No Clubbing, No edema Neurological: No Focal Motor or Sensory Deficit 07/11/17 22:36: Troponin I < 0.02 07/12/17 02:33: Troponin I < 0.02 07/12/17 06:46: WBC 2.7 L, RBC 4.32, Hgb 12.8, Hct 40.3, MCV 93.3, MCH 29.6, MCHC 31.8 L, RDW 16.9 H, RDW Differential 58.0 H, Plt Count 144 L, MPV 10.2, Immature Gran % (Auto) 0.400, Neut % (Auto) 49.7, Lymph % (Auto) 36.1, Pepin % (Auto) 10.8 H, Eos % (Auto) 1.5, Baso % (Auto) 1.5 H, Absolute Neuts (auto) 1.3 L, Total Counted Not Reportable 07/12/17 06:46: Sodium 144, Potassium 4.0, Chloride 113 H, Carbon Dioxide 21.0, Anion Gap 10, BUN 9, Creatinine 0.83, Est GFR (MDRD) Af Amer 86, Est GFR (MDRD) Non-Af 71, BUN/Creatinine Ratio 10.9, Glucose 98, Calcium 7.9 L, Magnesium 1.9 07/12/17 06:46: Troponin I < 0.02 Rhythm: EKG: Normal sinus rhythm with no acute changes. Admission EKG showed atrial fibrillation with rapid ventricular response and diffuse dynamic ST segment T-wave flattening. ECHO: Stress Test: Cardiac Cath: PCI: CT Surgery: Holter monitor: EPS: PPM: CXR: Chest CT Scan: Assessment/Plan 1. Paroxysmal atrial fibrillation: The patient's atrial fibrillation appears to manifest itself and the patient is in an acute illness like setting consistent with previous infection of her legs, and now with influenza. Her LV function is normal on her previous echocardiogram and her stress test was also negative. It appears the patient is unaware when she goes in and out of atrial fibrillation. In addition she has a history of peptic ulcer disease making anticoagulation somewhat problematic going forward. At this point the patient is in normal sinus rhythm and would not recommend oral anticoagulation going forward. It appears that as her respiratory illness improves her atrial fibrillation becomes less prominent. I would however recommend a 30 day event monitor upon discharge in order to document whether she is going in and out of atrial fibrillation unbeknownst to her, and outside the acute illness. If this demonstrates atrial fibrillation I would recommend oral anticoagulation therapy with either Xarelto or Eliquis. In the meantime her troponins are negative and I would not recommend repeat echo or stress test at this time. Her TSH is normal, continue Synthroid therapy. Continue Cardizem CD 120 mg p.o. daily. I believe it is prudent to continue baby aspirin. 2. Hyperlipidemia: Continued Lipitor therapy. 3. Thank you very much for the opportunity to participate in the cardiac care of your patient. Consultation time took place between 930 and 10 AM. Code Visit Inpatient E AND M: [id number] Init Hosp L2 07/12/17 1003 <Electronically signed by Cosmo Balderas MD> Date Cosmo Balderas MD Cosigner Signature (if applicable): Date CC: Cosmo Balderas MD; OUT OF TOWN DOCTOR; RON WARREN Signed BEDSIDE GLUCOSE Collected: 07/12/2017 Status: F Source: [place] 6:48 AM [facility] REPOSITORY TYPE CODE TESTS RESULT OUT OF RANGE REFERENCE UNITS LAB L501.080 70-110 mg/dL Normal BEDSIDE GLU 102 Result Comment: MANAGEMENT OF PATIENT CARE PER NURSING PROTOCOL Performed By: #### L501.080 #### [facility] [place] [address] CBC W/DIFF, AUTOMATED Collected: 07/12/2017 Status: F Source: [place] 6:46 AM [facility] REPOSITORY TYPE CODE TESTS RESULT OUT OF RANGE REFERENCE UNITS LAB L100.1000 4.4-11.0 K/mm3 Low WBC 2.7 LAB L100.1200 4.2-5.4 M/mm3 Normal RBC 4.32 LAB L100.1300 12.0-15.0 g/dl Normal HGB 12.8 LAB L100.1400 37-47 % Normal HCT 40.3 LAB L100.1500 81-99 fL Normal MCV 93.3 LAB L100.1600 27.0-32.0 pg Normal MCH 29.6 LAB L100.1700 32-36 g/gl Low MCHC 31.8 LAB L100.1810 11.6-14.6 % High RDW CV 16.9 LAB L100.1820 35.1-43.9 fl High RDW SD 58.0 LAB L100.1900 150-450 K/mm3 Low PLT 144 LAB L100.2000 6.2-12.0 fl Normal MPV 10.2 LAB L100.2100 47-70 % Normal NEUT% 49.7 LAB L100.2200 19-41 % Normal LY% 36.1 LAB L100.2300 0-10 % High MONO% 10.8 LAB L100.2400 0-5 % Normal EO% 1.5 LAB L100.2500 0-1 % High BASO% 1.5 LAB L100.2550 0.0-0.9 % Normal IM GRAN % 0.400 Result Comment: IG% - Immature Granulocytes (promyelocytes, myelocytes and metamyelocytes) > 1% indicates that a LEFT SHIFT is Present. LAB L100.2620 2.0-7.7 X10 3/uL Low Absolute Neut 1.3 LAB L100.2720 0.83-4.51 X10 3/ul Normal Absolute Lymph 0.97 Performed By: #### L100.0100 #### [facility] [address] [place], [place], [address] BASIC METABOLIC Collected: 07/12/2017 Status: F Source: [place] PROFILE (BMP) 6:46 AM [facility] REPOSITORY TYPE CODE TESTS RESULT OUT OF RANGE REFERENCE UNITS LAB L501.0100 74-106 mg/dL Normal GLU 98 Result Comment: Please note revised GLUCOSE reference range effective 2017. LAB L501.1000 7-18 mg/dL Normal BUN 9 LAB L501.1100 0.55-1.02 mg/dL Normal CREAT,SERUM 0.83 Result Comment: The validity of the calculated GFR AND GFRAA in patients over 70 years has not been determined. Clinical correlation is essential. LAB L501.1110 >60 mL/min Normal EST GFR 71 Result Comment: Non- GFR Calc LAB L501.1115 >60 mL/min Normal EST GFR - AA 86 Result Comment: GFR Calc LAB L501.1255 ml/min Normal Estimated CRCL 49.79 LAB L501.1300 10-20 RATIO Normal BUN/CRE 10.9 LAB L501.2200 8.5-10 mg/dL Low .1 CA 7.9 LAB L501.5300 136-14 mmol/L Normal 5 NA 144 LAB L501.5600 3.5-5. mmol/L Normal 1 K 4.0 LAB L501.5900 98-107 mmol/L High CL 113 LAB L501.6100 21.0-3 mmol/L Normal 2.0 CO2 21.0 LAB L501.6200 5-15 Normal GAP 10 Performed By: #### L500.2500, L501.5200, L501.9520 #### [facility] [address] [place], [address] MAGNESIUM Collected: 07/12/2017 Status: F Source: [place] 6:46 AM [facility] REPOSITORY TYPE CODE TESTS RESULT OUT OF RANGE REFERENCE UNITS LAB L501.5200 1.6-2.6 mg/dL Normal MG 1.9 Result Comment: Please note revised Magnesium reference range effective 2017. Performed By: #### L500.2500, L501.5200, L501.9520 #### [facility] [address] [place], [address] THYROID STIM HORMONE Collected: 07/12/2017 Status: F Source: [place] (TSH) 6:46 AM [facility] REPOSITORY TYPE CODE TESTS RESULT OUT OF RANGE REFERENCE UNITS LAB L501.9520 0.358-3.74 uIU/mL Normal TSH 2.17 Performed By: #### L500.2500, L501.5200, L501.9520 #### [facility] [address] [place], [address] TROPONIN-I Collected: 07/12/2017 Status: F Source: [place] 2:33 AM [facility] REPOSITORY Order Comment: 'TROP' Serial specimen #1, #2, #3, or #4: 2 TYPE CODE TESTS RESULT OUT OF RANGE REFERENCE UNITS LAB L501.4010 <0.06 ng/mL Normal < 0.02 TROPONIN-I Result Comment: TROPONIN-I EXPECTED VALUES <0.05 NEGATIVE 0.06 - 0.59 AT RISK OF TN > OR = 0.60 SUGGEST TN Performed By: #### L501.4010 #### [facility] [address] [place], [place], [address] TROPONIN-I Collected: 07/11/2017 Status: F Source: [place] 10:36 PM [facility] REPOSITORY Order Comment: 'TROP' Serial specimen #1, #2, #3, or #4: 3 TYPE CODE TESTS RESULT OUT OF RANGE REFERENCE UNITS LAB L501.4010 <0.06 ng/mL Normal < 0.02 TROPONIN-I Result Comment: TROPONIN-I EXPECTED VALUES <0.05 NEGATIVE 0.06 - 0.59 AT RISK OF TN > OR = 0.60 SUGGEST TN Performed By: #### L501.4010 #### [facility] [address] [place], [address] HISTORY AND PHYSICAL Observed: 07/11/2017 Status: F Source: [place] EXAM 10:15 PM [facility] REPOSITORY [facility] Medical Records Department [address] [place] [address] History and Physical 07/11/172144 MR#: [id number] Acct: [id number] Name: BELIA GILMORE Rep #: [id number] : 1940 77 From: Sharmaine Melendez MD PCP: RON WARREN Status: ADM IN Y Location: [place] [address] Problem List (1) PAF (paroxysmal atrial fibrillation) Status: Acute (2) Influenza B Status: Acute (3) Influenzal bronchiolitis Status: Acute History of Present Illness Date of Admission: 07/11/17 Chief Complaint: wheezing and dyspnea The patient is a 77 year old F with past history of PAF, hyperlipidemia, hypothyroidism, mood disorder, rheumatoid arthritis on twice monthly biologic injectable, who is currently completing treatment with Tamiflu for influenza B infection. She has had wheezing over the past few days. She was seen in the PCP office today and received albuterol aerosol 2. Due to continued wheezing, she was referred to emergency department where she received albuterol/ipratropium aerosol 2. She developed PAF RVR, with EKG revealing atrial fibrillation rates 140s. Chest x-ray was unrevealing. Saturation was 98 -100% on 2 liters. Chest x-ray revealed no infiltrate. Chest CT PE protocol revealed no evidence of thromboembolic phenomena, basilar atelectasis. The patient was treated with diltiazem protocol, and upon transfer from the emergency department had reverted to normal sinus rhythm. Upon seeing the patient, she remains in normal sinus rhythm. She denies chest pain, productive cough, fevers chills nausea vomiting diarrhea. She has felt wiped out from the influenza. She is still wheezing slightly. Laboratories are reviewed from referring facility. CBC was acceptable, white count 3.5, hemoglobin 14.4, urinalysis negative, chemistries pertinent for potassium 3.1, BUN 1.0, otherwise unrevealing, BNP 383, troponin 0. 30. Reports prior history of PAF after surgeries 4 years ago. She recalls stress test was unrevealing. She completed a course of Xarelto for DVT and has been off NOAC for 2 weeks. [] Past Medical History Past Medical History (Chronic Problems): Chronic Problems (Last Updated 05/16/17 @ 13:54 by Zoë Duke) GI (gastrointestinal bleed) (Chronic 01/2017) DVT (deep venous thrombosis) (Chronic) right lower leg Hyperlipidemia (Chronic) Paroxysmal atrial fibrillation (Chronic) Hypothyroidism (Chronic) 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 (Chronic) Rheumatoid arthritis (Chronic) Mixed anxiety and depressive disorder (Chronic) Immunosuppressed status (Chronic) on Humira and methotrexate History of peptic ulcer disease (Chronic) Allergies cephalexin monohydrate [From Keflex] Allergy (Verified 05/16/17 13:45) Hives ethchlorvynol [From Placidyl] Allergy (Verified 05/16/17 13:45) Unknown NSAIDS (Non-Steroidal Anti-Inflamma Allergy (Verified 05/16/17 13:45) Unknown Penicillins [PCN] Allergy (Verified 05/16/17 13:45) Unknown Sulfa (Sulfonamide Antibiotics) Allergy (Verified 05/16/17 13:45) Rash sulfamethoxazole [From Septra] Allergy (Verified 05/16/17 13:45) Unknown trimethoprim [From Septra] Allergy (Verified 05/16/17 13:45) Unknown Home Medications: Ambulatory Orders Medication Instructions Recorded Atorvastatin Calcium [Lipitor] 20 mg PO QHS 10/17/14 Psychiatric History: Anxiety, Depression FINANCIAL 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: No pertinent FINANCIAL SERVICES CONSULTANT history Smoking Status: Never smoker - *Family History Maternal History Items: Cancer - mother had breast CA in her 90's, Unknown Paternal History Items: Heart Disease, - - aneurysm in her father who from CAD and aneurym at 74 Sibling History Items: Cancer - she had a brother with throat cancer, - - she had a sister with severe epilepsy who lived [place] and Review of Systems Respiratory: Reports: Wheezing, - - cough VTE Information - Inpt Only VTE Present on Admission: No VTE Mechan Device Prophylaxis: SCD's VTE Pharm Prophylaxis ordered?: Yes Patient Problems: Active and Suspected Problems (Last Updated 05/16/17 @ 13:54 by Zoë Duke) PAF (paroxysmal atrial fibrillation) (Acute) Influenza B (Acute) Influenzal bronchiolitis (Acute) - Physical Exam General: Alert, Oriented x3, Cooperative Oral: Moist Mucosa Neck: Supple, No JVD, Negative Carotid Bruits, Negative Hepatojugular Reflux Lungs: Wheezes Cardiovascular: Regular rate, Regular Rhythm, Normal S1, Normal S2 Abdomen: Bowel Sounds Present, Soft, Non Tender, Non-Distended Extremities: - - Gross edema, bilateral well-healed knee arthroplasties Skin: No rashes, No breakdown Neurological: Neuro grossly intact Psych/Mental Status: Normal Affect, Appropriate Vital Signs Temp Pulse Resp BP Pulse Ox 97.6 F L 68 20 H 112/67 99 07/11/17 21:00 07/11/17 21:00 07/11/17 21:00 07/11/17 21:00 07/11/17 21:00 Oxygen Flow Rate (L/min) 2 Oxygen Delivery Method Nasal Cannula Weight: 194 lb 3.636 oz Body Mass Index (BMI) 33.3 Assessment/Plan Active and Suspected Problems (Last Updated 05/16/17 @ 13:54 by Zoë Duke) PAF (paroxysmal atrial fibrillation) (Acute) Influenza B (Acute) Influenzal bronchiolitis (Acute) 77-year-old woman with comorbidities of hyperlipidemia, hypothyroidism, mood disorder, rheumatoid arthritis on biological injectable twice monthly, PAF, DVT status post NOAC anticoagulation stopped 2 weeks ago, presents with influenza B/influenzal bronchiolitis, complicated by PAF provoked due to bronchodilator therapy. She has reverted to normal sinus rhythm. She has 2 additional doses of Tamiflu left to complete of her 5 day course. Biggest issue at the moment is pulmonary toilette. She would benefit from course of steroids and perhaps LABA/steroid. Would avoid further DUONEB.albuterol . Her elevated is likely consistent with troponin leak secondary to sustained tachyarrhythmia, now resolved; will cycle serial troponins, continue telemetry monitoring. Patient never had chest pain symptoms. 1. influenza B, influenzal bronchiolitis Solumedrol 40 mg IV every 8 hours Mucinex complete Tamiflu fluids, antitussives, Tylenol prn, Cepacol trial LABA/steroid droplet precautions 2. PAF resolved Provoked by bronchodilator therapy in setting of HTN; reports post op afib about 4 years ago [id number]-Aqwk score = 4 consider NOAC opinion cardiology (patient follows with Dr. Balderas) 3. elevated troponin , suspect 2/2 demand ischemia, no chest pain, NOS -- will cycle serial troponins 4. hypoKalemia -- will replete 3. hypothyroidism on replacement check TSH 4. HPL on statin 5. mood disorder - SSRI 6. RA on biologics, immunocompromised state DVT prophy -- SCDs, subQ heparin 07/11/17 [id number] <Electronically signed by Sharmaine Melendez MD> Date Sharmaine Melendez MD Cosigner Signature: Date (if applicable) CC: Sharmaine Melendez MD; RON WARREN Signed CT ANGIOGRAPHY CHEST Observed: 07/11/2017 Status: F Source: [facility] W/CONTRAST 5:10 PM [facility] REPOSITORY ORIGINAL CT PULMONARY ANGIOGRAM WITH IV CONTRAST: with post-processing, volume rendering and 3-D acquisitions. This exam was performed according to our departmental dose optimization program, and includes the fo llowing measures where applicable: automated exposure control, adjustment of the mAs and/or kVp according to patient size and/or exam, and an iterative reconstruction algorithm. CLINICAL STATEMENT: chest pain; suspect PE. COMPARISON:Chest x-ray 07/11/2017. FINDINGS: Examination is mildly degraded secondary to respiratory motion, most pronounced at the bases. There is adequate contrast opacification of the pulmonary arterial vasculature. There is no fillin g defect or vessel cutoff to indicate pulmonary embolus to the level of the segmental arteries. Smaller distal segmental and subsegmental emboli cannot be excluded due to artifacts. The thoracic aorta i s normal in caliber with atherosclerotic calcification. The heart is normal in size. No pericardial effusion or thickening. Multiple prominent mediastinal and hilar lymph nodes. Findings do not meet size criteria for lymphadenopathy and may be reactive. The lungs show no consolidation. There is minimal ectasia of the central bronchi. No significant bronchiectasis. No obstruction of the central bronchi. There is mild atelectasis the bases. The lungs are otherwise clear. There is no pneumothorax or pleural fluid. Evaluation for small nodules is compromised by artifacts. There multilevel degenerative changes throughout the visualized axial skeleton without evidence of acute or destructive osseous lesion. Limited images of the upper abdomen demonstrate no acute process. IMPRESSION: 1. No pulmonary emboli to the level of the segmental arteries. 2. No evidence of an acute process. I have personally reviewed the images of this examination and agree with the resident's findings and interpretation. Interpreted By: Karl Tidwell MD Preliminary Report By: Asad Ocampo MD Electronically Signed By: Karl Tidwell MD Dictated Date: 07/11/2017 5:18:47 PM Prelim Date: 07/11/2017 5:26:41 PM Sign Date: 07/11/2017 6:14:18 PM TROP Collected: 07/11/2017 Status: F Source: [place] 3:44 PM [facility] REPOSITORY TYPE CODE TESTS RESULT OUT OF REFERENCE UNITS RANGE LAB TROP(LOINC) 0.00-0.30 ng/mL Troponin <0.30 Result Comment: Below measuring range >=0.30 Consistent with cardiac damage, increased clinical risk and possibility of myocardial infarction. Serial measurements, clinical history, appropriate symptoms and/or ECG changes may help assess possibility of TN. *Other non-acute coronary syndrome conditions such as CHF, myocarditis, pulmonary emboli, sepsis and cardiac surgery could result in myocardial damage and increased troponin levels. Performed By: #### TROP #### [address] [address] XR CHEST 1 VIEW Observed: 07/11/2017 Status: F Source: [place] 1:57 PM [facility] REPOSITORY ORIGINAL XR CHEST 1 VIEW PORTABLE AP TIME: CLINICAL STATEMENT: cough/fever; suspect pneumonia COMPARISON: 09/17/2004. FINDINGS: The heart is mildly enlarged. There is no consolidation, vascular congestion, pleural effusion, or pneumothorax. No displaced fractures are identified. IMPRESSION: No acute radiographic findings. Interpreted By: Dandy Antonio MD Preliminary Report By: Dandy Antonio MD Electronically Signed By: Dandy Antonio MD Dictated Date: 07/11/2017 2:01:58 PM Prelim Date: 07/11/2017 2:01:58 PM Sign Date: 07/11/2017 2:02:40 PM CBC Collected: 07/11/2017 Status: F Source: [place] 1:31 PM [facility] REPOSITORY TYPE CODE TESTS RESULT OUT OF REFERENCE UNITS RANGE LAB WBC(LOINC) 4.60-10.80 10 3/mcL Low WBC 3.50 LAB RBCCT(LOINC 4.20-5.40 10 6/mcL ) RBC 4.74 LAB HGB(LOINC) 12.0-16.0 G/dL Hgb 14.4 LAB HCT(LOINC) 37.0-47.0 % Hct 42.5 LAB MCV(LOINC) 80.0-94.0 fL MCV 89.7 LAB MCH(LOINC) 27.0-31.2 pg MCH 30.5 LAB MCHC(LOINC) 33.0-37.0 G/dL MCHC 34.0 LAB RDW(LOINC) 11.5-14.5 % High RDW 17.5 LAB PLT(LOINC) 130-400 10 3/mcL Platelet 176 LAB MPV(LOINC) 7.4-10.4 fL MPV 8.2 Performed By: #### CBC, ADIFF, ANEU, PBNP, GFR, BMP #### [address] [address] .AUTO DIFF Collected: 07/11/2017 Status: F Source: [facility] 1:31 PM [facility] REPOSITORY TYPE CODE TESTS RESULT OUT OF REFERENCE UNITS RANGE LAB PAULIE(LOINC) 37.0-80.0 % Neutrophil % 48.0 LAB LYM(LOINC) 10.0-50.0 % Lymphocyte % 34.7 LAB MON(LOINC) 1.7-13.0 % Monocyte High % 15.6 LAB EO(LOINC) 0.0-7.0 % Eosinophil % 0.8 LAB BAS(LOINC) 0.0-2.5 % Basophil % 0.9 LAB ABLYM(LOIN 0.77-3.85 10 3/mcL C) Lymphocyte, 1.20 Absolute LAB ARSH(LOINC 0.15-1.00 10 3/mcL ) Monocyte, 0.60 Absolute LAB AEOS(LOINC 0.00-0.40 10 3/mcL ) Eosinophil, 0.00 Absolute LAB ABAS(LOINC 0.00-0.19 10 3/mcL ) Basophil, 0.00 Absolute Performed By: #### CBC, ADIFF, ANEU, PBNP, GFR, BMP #### [address] [address] .NEUABS Collected: 07/11/2017 Status: F Source: [facility] [employer] 1:31 [facility] REPOSITORY TYPE CODE TESTS RESULT OUT OF REFERENCE UNITS RANGE LAB ANEU(LOINC) 2.85-6.16 10 3/mcL Low Neutrophil, 1.70 Absolute Performed By: #### CBC, ADIFF, ANEU, PBNP, GFR, BMP #### [facility] [address] [place], [place] [address] PBNP Collected: 07/11/2017 Status: F Source: [facility] 1:31 [facility] REPOSITORY TYPE CODE TESTS RESULT OUT OF REFERENCE UNITS RANGE LAB PBNP(LOINC) 5.0-300.0 pg/mL High N-Terminal 382.8 proBNP Result Comment: In the presence of acute dyspnea, CHF likely if: Age <50 years: >450 pg/mL Age 50-75 years: >900 pg/mL Age >75 years: >1800 pg/mL Performed By: #### CBC, ADIFF, ANEU, PBNP, GFR, BMP #### [address] [place] [address] [place], [place] [address] .GFR Collected: 07/11/2017 Status: F Source: [facility] 1:[address] [place] [address] REPOSITORY TYPE CODE TESTS RESULT OUT OF REFERENCE UNITS RANGE LAB GFRAA(LOINC ml/min/1.73 ) sqm GFR 66 [place] Result Comment: GFR Population mean for , Non- Americans Ages 20-29 = 116 mL/min/1.73 sq.m. Ages 30-39 = 107 mL/min/1.73 sq.m. Ages 40-49 = 99 mL/min/1.73 sq.m. Ages 50-59 = 93 mL/min/1.73 sq.m. Ages 60-69 = 85 mL/min/1.73 sq.m. Ages 70+ = 75 mL/min/1.73 sq.m. Chronic Kidney Disease: Less than 60 mL/min/1.73 square meters End Stage Renal Disease: Less than 15 mL/min/1.73 square meters LAB GFRNO(LOINC) ml/min/1.73sqm GFR Non- 54 Result Comment: GFR Population mean for , Non- Americans Ages 20-29 = 116 mL/min/1.73 sq.m. Ages 30-39 = 107 mL/min/1.73 sq.m. Ages 40-49 = 99 mL/min/1.73 sq.m. Ages 50-59 = 93 mL/min/1.73 sq.m. Ages 60-69 = 85 mL/min/1.73 sq.m. Ages 70+ = 75 mL/min/1.73 sq.m. Chronic Kidney Disease: Less than 60 mL/min/1.73 square meters End Stage Renal Disease: Less than 15 mL/min/1.73 square meters Performed By: #### CBC, ADIFF, ANEU, PBNP, GFR, BMP #### [address] [place], [place] [address] BMP Collected: 07/11/2017 Status: F Source: [facility] 1:31 PM [facility] REPOSITORY TYPE CODE TESTS RESULT OUT OF REFERENCE UNITS RANGE LAB 1547-9 83-110 mg/dL GLUCOSE High 115 LAB NA(LOINC) 136-146 mEq/L Sodium Level 142 LAB K(LOINC) 3.5-5.1 mEq/L Low Potassium Level 3.1 LAB CL(LOINC) 98-107 mEq/L Chloride 107 LAB CO2(LOINC) 23-31 mEq/L CO2 24 LAB EBAL(LOINC mEq/L ) Electrolyte Balance 11.0 LAB BUN(LOINC) 7.0-18.0 mg/dL BUN 12.1 LAB CRE(LOINC) 0.6-1.2 mg/dL Creatinine Lvl (s) 1.0 LAB BC(LOINC) 7-27 ratio BUN/Creatinine 12 Ratio LAB CA(LOINC) 8.4-10.2 mg/dL Calcium Lvl 9.5 Performed By: #### CBC, ADIFF, ANEU, PBNP, GFR, BMP #### [address] [place], [place] [address] UA Collected: 07/11/2017 Status: F Source: [facility] 1:31 PM [facility] REPOSITORY TYPE CODE TESTS RESULT OUT OF RANGE REFERENCE UNITS LAB SPCUA(GAGAN NC) UA Specimen Type Clean Catch LAB CLRUA(GAGAN NC) UA Color YELLOW LAB APPUA(GAGAN NC) UA Appear CLEAR LAB SGUA(LOIN C) UA Spec Abnormal Grav 1.010 LAB GLUA(LOIN mg/dL C) UA Glucose NEGATIVE LAB BILUA(GAGAN NC) UA Bili NEGATIVE LAB KETUA(GAGAN mg/dL NC) UA Ketones NEGATIVE LAB BLDUA(GAGAN NC) UA Blood NEGATIVE LAB PHUA(LOIN C) UA pH 5.5 LAB PROUA(GAGAN mg/dL NC) UA Protein NEGATIVE LAB UROUA(GAGAN E.U./dL NC) UA Urobilinogen 0.2 LAB NITUA(GAGAN NC) UA Nitrite NEGATIVE LAB LEUUA(GAGAN NC) UA Leuk Est NEGATIVE Performed By: #### UA, UAMICAO #### [facility] [address] [place], [place] [address] .URINALYSIS MICROSCOPIC Collected: 07/11/2017 Status: F Source: [facility]) 1:31 [facility] REPOSITORY TYPE CODE TESTS RESULT OUT OF REFERENCE UNITS RANGE LAB WBCUA(LOIN None Seen /hpf C) UA WBC None Seen LAB RBCUA(LOIN None Seen /hpf C) UA RBC None Seen LAB EPIUA(LOIN None Seen /hpf C) UA Squam Epithelial None Seen Performed By: #### UA, UAMICAO #### [facility] [address] [place] [address] Observed: 07/11/2017 Status: F Source: [facility] 1:31 [facility] REPOSITORY . MICRO - Microbiology PROCEDURE: Blood Culture (bacterial) [*1] SOURCE: Blood BODY SITE: COLLECTED DATE/TIME: 07/11/2017 13:31 EDT RECEIVED DATE/TIME: 07/11/2017 21:51 EDT START DATE/TIME: 07/11/2017 21:51 EDT FREE TEXT SOURCE: FINAL REPORTS Final Report [] Verified Date/Time/Personnel: 07/16/2017 21:59 EDT Blood Culture: No Growth at 5 days. PRELIMINARY REPORTS Preliminary Report [] Verified Date/Time/Personnel: 07/11/2017 22:59 EDT Culture has been received in lab and is no growth to date. Routine cultures are held for 5 days. Performing Locations *1: This test was performed at: [facility], [address] [place] [address], [id number] , [place] Performed By: #### CBL #### [place] [address] Observed: 07/11/2017 Status: F Source: [facility] 1:31 PM [facility] REPOSITORY . MICRO - Microbiology PROCEDURE: Blood Culture (bacterial) [*1] SOURCE: Blood BODY SITE: COLLECTED DATE/TIME: 07/11/2017 13:31 EDT RECEIVED DATE/TIME: 07/11/2017 21:51 EDT START DATE/TIME: 07/11/2017 21:51 EDT FREE TEXT SOURCE: FINAL REPORTS Final Report [] Verified Date/Time/Personnel: 07/16/2017 21:59 EDT Blood Culture: No Growth at 5 days. PRELIMINARY REPORTS Preliminary Report [] Verified Date/Time/Personnel: 07/11/2017 22:59 EDT Culture has been received in lab and is no growth to date. Routine cultures are held for 5 days. Performing Locations *1: This test was performed at: [address] Performed By: #### CBL #### [place] [address] Observed: 06/25/2017 Status: F Source: [facility] 11:18 AM [facility] REPOSITORY . MICRO - Microbiology PROCEDURE: Urine Culture [*1] SOURCE: Urine, Clean Catch BODY SITE: COLLECTED DATE/TIME: 06/25/2017 11:18 EDT RECEIVED DATE/TIME: 06/25/2017 18:30 EDT START DATE/TIME: 06/25/2017 18:30 EDT FREE TEXT SOURCE: FINAL REPORTS Final Report [] Verified Date/Time/Personnel: 06/27/2017 07:08 EDT 30,000 organisms per mL Mixed without predominant isolate(s). Sensitivity Testing not indicated. Probably contamination. Repeat culture suggested. PRELIMINARY REPORTS Preliminary Report [] Verified Date/Time/Personnel: 06/26/2017 07:42 EDT No growth to date Performing Locations *1: This test was performed at: [address] Performed By: #### CUR #### [facility] [address] [place] [address] .GFR Collected: 06/15/2017 Status: F Source: [facility] 10:26 AM [facility] REPOSITORY TYPE CODE TESTS RESULT OUT OF REFERENCE UNITS RANGE LAB GFRAA(LOINC ml/min/1.73 ) sqm GFR 64 [place] Result Comment: GFR Population mean for , Non- Americans Ages 20-29 = 116 mL/min/1.73 sq.m. Ages 30-39 = 107 mL/min/1.73 sq.m. Ages 40-49 = 99 mL/min/1.73 sq.m. Ages 50-59 = 93 mL/min/1.73 sq.m. Ages 60-69 = 85 mL/min/1.73 sq.m. Ages 70+ = 75 mL/min/1.73 sq.m. Chronic Kidney Disease: Less than 60 mL/min/1.73 square meters End Stage Renal Disease: Less than 15 mL/min/1.73 square meters LAB GFRNO(LOINC) ml/min/1.73sqm GFR Non- 53 Result Comment: GFR Population mean for , Non- Americans Ages 20-29 = 116 mL/min/1.73 sq.m. Ages 30-39 = 107 mL/min/1.73 sq.m. Ages 40-49 = 99 mL/min/1.73 sq.m. Ages 50-59 = 93 mL/min/1.73 sq.m. Ages 60-69 = 85 mL/min/1.73 sq.m. Ages 70+ = 75 mL/min/1.73 sq.m. Chronic Kidney Disease: Less than 60 mL/min/1.73 square meters End Stage Renal Disease: Less than 15 mL/min/1.73 square meters Performed By: #### GFR, CMP, LIPID, CBC, ADIFF, ANEU, TSH, FT4 #### [address] [place], [place] [address] CMP Collected: 06/15/2017 Status: F Source: [facility] 10:26 AM [facility] REPOSITORY TYPE CODE TESTS RESULT OUT OF REFERENCE UNITS RANGE LAB 1547-9 83-110 mg/dL GLUCOSE 87 LAB NA(LOINC) 136-146 mEq/L Sodium Level 140 LAB K(LOINC) 3.5-5.1 mEq/L Potassium Level 4.2 LAB CL(LOINC) 98-107 mEq/L Chloride 107 LAB CO2(LOINC) 23-31 mEq/L CO2 23 LAB EBAL(LOINC mEq/L ) Electrolyte Balance 10.0 LAB BUN(LOINC) 7.0-18.0 mg/dL BUN 17.2 LAB CRE(LOINC) 0.6-1.2 mg/dL Creatinine Lvl (s) 1.0 LAB BC(LOINC) 7-27 ratio BUN/Creatinine 17 Ratio LAB CA(LOINC) 8.4-10.2 mg/dL Calcium Lvl 9.3 LAB PROT(LOINC 6.0-8.3 G/dL ) Total Protein 6.7 LAB ALB(LOINC) 3.4-4.8 G/dL Albumin Level 4.4 LAB GLB(LOINC) G/dL Globulin 2.3 LAB AG(LOINC) 1.1-2.5 ratio A/G Ratio 1.9 LAB BILT(LOINC 0.2-1.0 mg/dL ) Bili Total 0.4 LAB AP(LOINC) 40-135 IU/L Alk Phos 50 LAB AST(LOINC) 10-40 IU/L AST/SGOT 25 LAB ALT(LOINC) 10-35 IU/L ALT/SGPT 24 Performed By: #### GFR, CMP, LIPID, CBC, ADIFF, ANEU, TSH, FT4 #### [address] [address] LIPID Collected: 06/15/2017 Status: F Source: [facility] 10:26 AM [facility] REPOSITORY TYPE CODE TESTS RESULT OUT OF REFERENCE UNITS RANGE LAB CHOL(LOINC 131-200 mg/dL ) Cholesterol 154 Result Comment: Cholesterol Reference Interval: Less than 200 Desirable 200-239 Borderline high risk 240 and above High risk LAB TRIG(LOINC) 40-150 mg/dL Triglycerides 125 Result Comment: Triglyceride Reference Interval: Less than 150 Normal 150-199 Borderline high risk 200-499 High risk 500 or higher Very high risk LAB HD(LOINC) 35-90 mg/dL HDL Cholesterol 48 Result Comment: HDL Reference Interval: Less than 40 Low - high risk 60 or above Optimal/lowers risk LAB LDL(LOINC) 0-130 mg/dL LDL Cholesterol 81 Result Comment: LDL is a calculated result and requires a 12-hr fast. LDL Reference Interval: Less than 100 Optimal 100-129 Near or above optimal 130-159 Borderline high risk 160-189 High risk 190 and above Very high risk Performed By: #### GFR, CMP, LIPID, CBC, ADIFF, ANEU, TSH, FT4 #### [address] [place], [place] [address] CBC Collected: 06/15/2017 Status: F Source: [facility] 10:26 AM [facility] REPOSITORY TYPE CODE TESTS RESULT OUT OF REFERENCE UNITS RANGE LAB WBC(LOINC) 4.60-10.80 10 3/mcL Low WBC 4.30 LAB RBCCT(LOINC 4.20-5.40 10 6/mcL ) RBC 5.02 LAB HGB(LOINC) 12.0-16.0 G/dL Hgb 14.3 LAB HCT(LOINC) 37.0-47.0 % Hct 44.5 LAB MCV(LOINC) 80.0-94.0 fL MCV 88.6 LAB MCH(LOINC) 27.0-31.2 pg MCH 28.4 LAB MCHC(LOINC) 33.0-37.0 G/dL Low MCHC 32.1 LAB RDW(LOINC) 11.5-14.5 % High RDW 19.1 LAB PLT(LOINC) 130-400 10 3/mcL Platelet 228 LAB MPV(LOINC) 7.4-10.4 fL MPV 9.3 Performed By: #### GFR, CMP, LIPID, CBC, ADIFF, ANEU, TSH, FT4 #### [address] [place] [place], [place] [address] .AUTO DIFF Collected: 06/15/2017 Status: F Source: [facility] 10:26 AM [facility] REPOSITORY TYPE CODE TESTS RESULT OUT OF REFERENCE UNITS RANGE LAB PAULIE(LOINC) 37.0-80.0 % Neutrophil % 53.3 LAB LYM(LOINC) 10.0-50.0 % Lymphocyte % 29.4 LAB MON(LOINC) 1.7-13.0 % Monocyte % 11.9 LAB EO(LOINC) 0.0-7.0 % Eosinophil % 3.9 LAB BAS(LOINC) 0.0-2.5 % Basophil % 1.5 LAB ABLYM(LOIN 0.77-3.85 10 3/mcL C) Lymphocyte, 1.30 Absolute LAB ARSH(LOINC 0.15-1.00 10 3/mcL ) Monocyte, 0.50 Absolute LAB AEOS(LOINC 0.00-0.40 10 3/mcL ) Eosinophil, 0.20 Absolute LAB ABAS(LOINC 0.00-0.19 10 3/mcL ) Basophil, 0.10 Absolute Performed By: #### GFR, CMP, LIPID, CBC, ADIFF, ANEU, TSH, FT4 #### [address] [address] .NEUABS Collected: 06/15/2017 Status: F Source: [facility] [employer] 10:26 AM [facility] REPOSITORY TYPE CODE TESTS RESULT OUT OF REFERENCE UNITS RANGE LAB ANEU(LOINC) 2.85-6.16 10 3/mcL Low Neutrophil, 2.30 Absolute Performed By: #### GFR, CMP, LIPID, CBC, ADIFF, ANEU, TSH, FT4 #### [address] [address] TSH Collected: 06/15/2017 Status: F Source: [facility] 10:26 AM [facility] REPOSITORY TYPE CODE TESTS RESULT OUT OF RANGE REFERENCE UNITS LAB TSH(LOINC) 0.27-4.20 mcIU/mL TSH 2.57 Performed By: #### GFR, CMP, LIPID, CBC, ADIFF, ANEU, TSH, FT4 #### [address] [address] FT4 Collected: 06/15/2017 Status: F Source: [facility] 10:26 AM [facility] REPOSITORY TYPE CODE TESTS RESULT OUT OF RANGE REFERENCE UNITS LAB FT4(LOINC) 0.6-1.7 ng/mL Free T4 1.4 Performed By: #### GFR, CMP, LIPID, CBC, ADIFF, ANEU, TSH, FT4 #### [address] [address] [address] ELBOW W/O CONTRAST Observed: 06/13/2017 Status: F Source: [facility] 11:00 AM [facility] REPOSITORY ORIGINAL CT left elbow without contrast with sagittal and coronal reconstructions Clinical Statement: LFT ELBOW PAIN, , history of injury, Comparison: Radiographs 05/16/2017 TECHNIQUE:This exam was performed according to our departmental dose optimization program, and includes the following measures where applicable: automated exposure control, adjustment of the mAs and/or kVp according to patient size and/or exam, and an iterative reconstruction algorithm. FINDINGS: There is no fracture, subluxation or osteochondral lesion of the elbow. No muscle hematoma. Posterior to the olecranon process of the ulna there is a 2 cm fluid collection with surrounding soft tissue e erica. This is of intermediate to low density. CT is not reliable for evaluating or excluding pathology in the soft tissue structures including the cartilage, ligaments and tendons. IMPRESSION: No fracture or other acute bony abnormality is seen. Fluid collection posterior to the olecranon process as described. This could be bursitis or a small posttraumatic hematoma. Evaluate clinically. Interpreted By: Karl Tidwell MD Preliminary Report By: Karl Tidwell MD Electronically Signed By: Karl Tidwell MD Dictated Date: 06/14/2017 10:14:34 AM Prelim Date: 06/14/2017 10:14:34 AM Sign Date: 06/14/2017 10:17:16 AM XR ELBOW MINIMUM 3 Observed: 05/16/2017 Status: F Source: [facility] VIEWS LEFT 5:00 PM [facility] REPOSIT[facility] ORIGINAL XR ELBOW MINIMUM 3 VIEWS LEFT CLINICAL STATEMENT: pain COMPARISON: None FINDINGS: 3 views obtained. No fracture or traumatic malalignment. No joint effusion. Soft tissue swelling noted in the posterior aspect of the arm and overlying the olecranon. IMPRESSION: Soft tissue swelling/contusion. No visualized fracture Interpreted By: Reid Almaraz MD Preliminary Report By: Reid Almaraz MD Electronically Signed By: Reid Almaraz MD Dictated Date: 05/16/2017 5:05:31 PM Prelim Date: 05/16/2017 5:05:31 PM Sign Date: 05/16/2017 5:06:15 PM CARDIOLOGY VISIT Observed: 05/16/2017 Status: F Source: [facility] REPORT 2:12 PM [facility] REPOSITORY [facility] [place] [address] OFFICE VISIT Date of Service: 05/16/17 MR#: [id number] Acct: [id number] Name: BELIA GILMORE Rep #: [id number] : 1940 Provider: Cosmo Balderas MD Age/Sex: 76/F Location: [facility] Status: Signed HPI HPI Chief Complaint: Routine F/u Details: Referring physician: Dr. Ron Warren Mrs. Denson is a very pleasant 76-year-old female, nondiabetic, nonsmoker, with a history of hypercholestlemia, currently on Lipitor and a former patient of Dr. Rangel. At that time she was seen by Dr. Rangel about 15 years ago and had a stress test which was reportedly negative per the patient. Originally I saw the patient in consultation on 10/26/14 after she had tripped and fallen over some sticks injuring her left lower leg. This proceeded to an infection over a period of days and she presented with lower extremity cellulitis requiring surgical debridement. She had repeat surgery on 10/21/14, and then again on 10/25/14. Subsequent to her 3rd surgery the patient developed paroxysmal atrial fibrillation with RVR, confirmed by adenosine administration. She was treated with a Cardizem drip, and then spontaneously converted. Since that time the patient has been discharged from the hospital In underwent successful flap surgery by plastic surgery over her left jefferson. As part of her cardiac workup she underwent an echocardiogram which demonstrated an LVEF of 65%, and RVSP of 24 mm Hg. She was treated with baby aspirin and Cardizem. The patient had T-wave inversion anteriorly after she converted and she subsequently underwent noninvasive stress testing which was negative for inducible ischemia. Since her last visit, the patient has been doing fairly well. She suffered a mechanical fall while in [place] tripping over a curb required 12 chanda in her r knee. Subsequent to that she has recovered and it is well healed. She reports occasional palpitations and mild bilateral trace lower extremity edema since initiating Cardizem therapy. In January 2017 the patient developed GI bleeding and was admitted [facility]. Patient had an upper and lower GI, and was subsequently discharged. Soon after that she developed a DVT and was placed on Eliquis therapy. She apparently has had no further GI bleeding however she fell once again yesterday on the ice, causing a bruise to her left elbow. In our office today her blood pressure is 124/72, and pulse is 72 and regular. Her physical exam is as below. Her lipids are pending. EKG Previously demonstrates normal sinus rhythm, normal axis, normal intervals, no evidence of previous myocardial infarction. Intake Vital Signs05/16/17 Height 5 ft 5 in 05/16/17 Weight: 191 lb 05/16/17 Body Mass Index (BMI) 31.8 05/16/17 Blood Pressure 124/72 05/16/17 Respiratory Rate 18 Intake Visit Reasons: 6 M FU Allergies cephalexin monohydrate [From Keflex] Allergy (Verified 05/16/17 13:45) Hives ethchlorvynol [From Placidyl] Allergy (Verified 05/16/17 13:45) Unknown NSAIDS (Non-Steroidal Anti-Inflamma Allergy (Verified 05/16/17 13:45) Unknown Penicillins [PCN] Allergy (Verified 05/16/17 13:45) Unknown Sulfa (Sulfonamide Antibiotics) Allergy (Verified 05/16/17 13:45) Rash sulfamethoxazole [From Septra] Allergy (Verified 05/16/17 13:45) Unknown trimethoprim [From Septra] Allergy (Verified 05/16/17 13:45) Unknown Medications Atorvastatin Calcium [Lipitor] 20 mg PO QHS 10/17/14 [History Confirmed 05/16/17] Ergocalciferol [Vitamin D] 50,000 unit PO TH 10/17/14 [History Confirmed 05/16/17] Levothyroxine [Synthroid] 88 mcg PO DAILY 10/17/14 [History Confirmed 05/16/17] Sertraline HCl [Zoloft] 100 mg PO DAILY 10/17/14 [History Confirmed 05/16/17] Diltiazem CD [Cardizem CD] 120 mg PO DAILY #30 cap 11/06/14 [Rx Confirmed 05/16/17] apixaban 5 mg tablet 5 mg PO Q12H 05/16/17 [History Confirmed 05/16/17] tocilizumab 162 mg/0.9 mL subcutaneous syringe 162 mg SC Q2W ml 05/16/17 [History Confirmed 05/16/17] PFSH Medical History GI (gastrointestinal bleed) (Chronic 01/2017) DVT (deep venous thrombosis) (Chronic) Hyperlipidemia (Chronic) Paroxysmal atrial fibrillation (Chronic) Hypothyroidism (Chronic) 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 (Chronic) Rheumatoid arthritis (Chronic) Mixed anxiety and depressive disorder (Chronic) Immunosuppressed status (Chronic) History of peptic ulcer disease (Chronic) Cellulitis of left lower extremity (Resolved) History of Clostridium difficile (Inactive) Surgical History surgical debridement left lower extremity (Chronic 10/2014) Family History Father CAD (coronary artery disease) Mother Breast cancer breast Social History Smoking Status: Never smoker Cardiology Exam Const Appearance: cooperative, healthy appearing and no acute distress Nutritional Appearance: well nourished Orientation: alert, oriented x3 and oriented to person Head Head: normal to inspection, atraumatic and normocephalic Nose: external nose normal Face and Sinus: face symmetric Mouth: oral mucosae normal Eyes General: appearance normal, both eyes and all related structures Eyelids: eyelids normal Conjunctivae: conjunctivae normal Pupils: PERRL and normal by confrontation EOM: EOM intact bilaterally Neck Neck: normal visual inspection and full ROM Carotids: normal carotid upstroke Chest Chest inspection: normal inspection of the chest Auscultation: Bilateral: Clear to Auscultation Cardio Palpation: normal PMI Rate: regular rate Rhythm: regular rhythm Heart sounds: S1 normal and S2 normal GI GI: normal to inspection, no hepatosplenomegaly and bowel sounds present Neuro General: alert, oriented x3, awake, CN's II-XI intact bilaterally and moves all extremities Skin Skin: no rashes or lesions noted Extremities Pulses: Normal: Right Femoral Pulse, Left Femoral Pulse, Right Dorsalis Pedis Pulse, Left Dorsalis Pedis Pulse, Right Posterior Tibial Pulse, Left Posterior Tibial Pulse, Right Radial Pulse, Left Radial Pulse Lower Extremity Edema: None: Bilateral Psych Psychological: normal affect Assessment AND Plan Plan 1. DVT: Patient had a DVT in January 2017 after being in bed for several days due to her GI bleeding from what appears to be diverticular type disease. She has had no further bleeding while on Eliquis, and is doing fairly well. She is back ambulating without any difficulty and back to her normal routine. I recommend a total of 6 months of Eliquis therapy in order to completely resolve any remaining DVT, and sooner discontinuation of Eliquis should the patient have any recurrent lower GI bleeding. She has no anginal symptoms. No indication for repeat stress testing. 2. Hyperlipidemia: This was managed by Dr. Rangel prior to his passing. Repeat lipid profile pending. Continue Lipitor. 3. Return office in 6 months This note was generated using a voice recognition system and there may be incorrect words, spelling or punctuation that were not noted when reviewing the office note prior to saving. Orders Orders: Medications Discontinued: Plan Detail Follow Up 6 Months (Andrey) Coding Level of Care Code Off vis,est,level 3 Coding Level of Care Code Off vis,est,level 3 05/16/17 1412 <Electronically signed by Cosmo Balderas MD> Date Cosmo Balderas MD Cosigner Signature: Date (if applicable) CC: ALLERGIES ALLERGIES DATE TYPE / CODE NAME / CODE REACTION SEVERITY SOURCE 05/01/2018 Drug cephalexin Hives Unknown [place] Allergy/416 monohydrate/F0000 [facility] 873216([facility] 50426(RXNORM) [facility] ED CT) Repository 05/01/2018 Drug NSAIDS Unknown Unknown [place] Allergy/416 (Non-Steroidal [facility] 997011([facility] Anti-Inflamma/[address]) 3845885(RXNORM) Repository 05/01/2018 Drug Penicillins/F0010 Unknown Unknown [place] Allergy/416 54339(RXNORM) [facility] 682707([facility] ED CT) Repository 05/01/2018 Drug Sulfa Rash Unknown [place] Allergy/416 (Sulfonamide [facility] 473351([facility] Antibiotics)/F[address]) 017235(RXNORM) Repository 05/01/2018 Drug ethchlorvynol/F00 Unknown Unknown [place] Allergy/391 1532872(RXNORM) [facility] 119358([facility] ED CT) Repository 05/01/2018 Drug sulfamethoxazole/ Unknown Unknown [place] Allergy/416 [id number](RXNORM [facility] 127291([facility] ED CT) Repository 05/01/2018 Drug trimethoprim/F006 Unknown Unknown [place] Allergy/416 595961(RXNORM) [facility] 826151([facility] ED CT) Repository ENCOUNTERS ENCOUNTERS ADMIT/DISCHARGE ACCOUNT NUMBER ADMITTING ENCOUNTER LOCATION SOURCE CLASS 05/01/2018 [id number] Ambulatory [facility] ding:WC Repository 03/23/2018 [id number] Ambulatory [facility] ding:CT Repository 03/23/2018/03/23/20 [id number] Ambulatory BMSBuilding: [place] 18 BMS.[facility] Repository 03/23/2018 [id number] Ambulatory [facility] ding:LAB Repository 03/21/2018/04/18/19 [id number] Mac Jaimes Inpatient [place] 19 [facility] ding:TCURoom Repository : MZZ92Aid: 1 03/21/2018 [id number] Mac Jaimes Ambulatory BMSBuilding: [place] Chi BMS.CF.[facility] Repository 03/21/2018 [id number] Ambulatory BMSBuilding: [facility] Repository 03/20/2018 [id number] Ambulatory BMSBuilding: [facility] Repository 03/17/2018 [id number] Sylviaonis, Ambulatory BMSBuilding: [place] Nelson F BMS.[facility] Repository 03/17/2018 [id number] Braintsonis, Ambulatory BMSBuilding: [place] Nelson F BMS..[facility] Repository 03/17/2018 [id number] [place], Ambulatory BMSBuilding: [place] Nelson F BMS.CF.[facility] Repository 03/17/2018 [id number] [place], Ambulatory BMSBuilding: [place] Nelson F BMS.CF.[facility] Repository 03/17/2018/03/21/20 [id number] [place], Inpatient [place] 18 Nelson F Encounter [facility] ding:EY6Exdm Repository : DS133Fmf: 1 03/17/2018 [id number] [place], Ambulatory BMSBuilding: [place] Nelson F BMS.[facility] Repository 03/17/2018 [id number] [place], Ambulatory BMSBuilding: [place] Nelson F BMS.[facility] Repository 03/17/2018 [id number] [place], Ambulatory BMSBuilding: [place] Nelson Watts BMS.[facility] Repository 03/17/2018 [id number] Kotsonis, Ambulatory BMSBuilding: [place] Nelson Watts BMS.[facility] Repository 03/16/2018 [id number] Ambulatory BBuilding:PH [facility] Repository 03/07/2018/03/10/20 [id number] [place]ulatory [place] 18 [facility] ding:LAB Repository 01/27/2018/01/28/20 [id number] Ambulatory BMSBuilding: [place] 18 BMS.[facility] Repository 01/19/2018/01/20/20 [id number] [place] [address] [place] [address] ding:LAB Repository 01/06/2018/01/07/20 [id number] Ambulatory [place] [address] [place] [address] ding:LAB Repository 12/06/2017/12/07/19 [id number] Ambulatory [place] [address] [place] [address] ding:LAB Repository 12/05/2017 [id number] Ambulatory BMSBuilding: [place] BMS.[facility] Repository 11/08/2017/11/13/19 [id number] Ambulatory [address] ng:Arthritis [facility] Repository 11/07/2017/11/08/19 [id number] [place] [address] [place] [address] ding:LAB Repository 10/03/2017/10/04/19 [id number] [place] [address] [place] [address] ding:LAB Repository 09/26/2017 [id number] Ambulatory BMSBuilding: [place] BMS.[facility] Repository 09/14/2017/09/19/19 [id number] Ambulatory [address] ding:[facility] Repository 09/13/2017 [id number] Ambulatory [place] [facility] ding:CVS Repository 09/13/2017 [id number] Ambulatory BMSBuilding: [place] [facility] Repository 09/07/2017/09/08/19 [id number] [place] [address] [place] [address] ding:LAB Repository 09/02/2017 [id number] Ambulatory [facility] ding:CVS Repository 09/02/2017 [id number] Ambulatory BMSBuilding: [facility] Repository 08/26/2017/08/27/19 [id number] Ambulatory BMSBuilding: [place] 18 BMS.[facility] Repository 08/26/2017 [id number] Ambulatory BMSBuilding: [place] BMS.[facility] Repository 08/22/2017 [id number] Ambulatory [facility] ding:LAB Repository 08/02/2017/08/03/19 [id number] Ambulatory [address] ding:LAB Repository 07/21/2017 [id number] Ambulatory [facility] ding:LAB.FUT Repository URE 07/15/2017 [id number] Ambulatory [facility] ding:CVS Repository 07/15/2017 [id number] Ambulatory BMSBuilding: [place] [facility] Repository 07/11/2017/07/14/19 [id number] Romie, Inpatient [place] 18 [facility] ding:PCURoom Repository : VZV896Uhv: 1 07/11/2017 [id number] Romie, Ambulatory BMSBuilding: [place] Sharmaine BMS.[facility] Repository 07/11/2017 [id number] Romie, Ambulatory BMSBuilding: [place] Sharmaine BMS.CF.[facility] Repository 07/11/2017 [id number] Romie, Ambulatory BMSBuilding: [place] Sharmaine BMS.[facility] Repository 07/11/2017 [id number] Romie, Ambulatory BMSBuilding: [place] Sharmaine BMS.[facility] Repository 07/11/2017/07/14/19 [id number] Ambulatory BMSBuilding: [place] [address] [place] [address] Repository 07/11/2017/07/12/19 [id number] Emergency BBuilding:[address] Repository 06/25/2017/06/30/19 [id number] Ambulatory [address] ding:[facility] Repository 06/15/2017/06/20/19 [id number] Ambulatory [address] ding:DROP [facility] Repository 06/13/2017/06/14/19 [id number] Ambulatory [address] ding:RAD [facility] Repository 05/16/2017/05/16/19 [id number] Emergency BBuilding:ER [address] Repository 05/16/2017/05/16/19 [id number] Ambulatory BMSBuilding: [place] 18 BMS.[facility] Repository 05/16/2017 [id number] Ambulatory BMSBuilding: [place] BMS.[facility] Repository PAYERS PAYERS ENCOUNTER GUARANTOR PAYER SUBSCRIBER SOURCE 05/01/2018 BELIA S Primary BELIA S [place] [id number] Insurance:JOHN OLSENDOB: [facility] [id number] Hospital 76511Mnv: 330) [facility] Number: Repository [phone] () [id number] Date:6857-79-26DG [facility] [place] [address]RR: 05/01/2018 Secondary NOT GIVENUNK [place] Insurance:SELF PAY [facility] Number: Effective Repository Date:2018-04-14 03/23/2018 BELIA S Primary BELIA S [place] [id number] Insurance:JOHN OLSENDOB: [facility] [id number] Hospital 50636Dwn: (330) [facility] Number: Repository [phone] () [id number] Date:5727-55-44QY [address] [address]HK: 03/23/2018 Secondary NOT GIVENUNK [place] Insurance:SELF PAY [facility] Number: Effective Repository Date:2018-03-23 03/23/2018 BELIA S Primary BELIA S [place] [id number] Insurance:JOHN OLSENDOB: [facility] [id number] Hospital 06685Fuh: (330) [facility] Number: Repository [phone] () [id number] Date:4315-10-91LN [facility] [address] [place] [address]HU: 03/23/2018 Secondary NOT GIVENUNK [place] Insurance:SELF PAY [facility]: Effective Repository Date:2018-03-23 03/23/2018 BELIA S Primary BELIA S [place] [id number] Insurance:JOHN OLSENDOB: [facility] [id number] Hospital 36176Flf: (330) [facility] Number: Repository [phone] () [id number] Date:6490-66-15LR [address] [place] [address]VZ: 03/23/2018 Secondary NOT GIVENUNK [place] Insurance:SELF PAY [facility] Number: Effective Repository Date:2018-03-13 03/21/2018 BELIA S Primary BELIA S [place] [id number] [address] Insurance:JOHN OLSENDOB: [facility] [id number] Hospital 57531Bma: (330) [facility] Number: Repository [phone] () [id number] Date:0688-68-18YZ [facility] [address] [place] [address]JR: 03/21/2018 Secondary NOT GIVENUNK [place] Insurance:SELF PAY [facility] Number: Effective Repository Date:2018-03-21 03/21/2018 BELIA S Primary BELIA S [place] [id number] Insurance:JOHN OLSENDOB: [facility] [id number] Hospital 15356Orm: (330) [facility] Number: Repository [phone] () [id number] Date:0193-80-49ZJ [facility] [address] [address]ML: 03/21/2018 Secondary NOT GIVENUNK [place] Insurance:SELF PAY [facility] Number: Effective Repository Date:2018-03-21 03/21/2018 BELIA S Primary BELIA S [place] [id number] Insurance:JOHN OLSENDOB: [facility] [id number] Hospital 60605Bnc: (330) [facility]: Repository [phone] () [id number] Date:7270-47-37XQ [address] [place] [address]TZ: 03/21/2018 Secondary NOT GIVENUNK [place] Insurance:SELF PAY [facility] Number: Effective Repository Date:2018-03-21 03/20/2018 BELIA S Primary BELIA S [place] [id number] Insurance:JOHN OLSENDOB: [facility] [id number] Hospital 305[address]Wlk: (330) [facility] Repository [phone] () [id number] Date:4845-67-39ZI [facility] [address] [place] [address]IF: 03/20/2018 Secondary NOT GIVENUNK [place] Insurance:SELF PAY [facility] Number: Effective Repository Date:2018-03-20 03/17/2018 BELIA S Primary BELIA S [place] [id number] Insurance:JOHN OLSENDOB: [facility] [id number] Hospital 67892Lii: (330) [facility] Repository [phone] () [id number] Date:3234-69-95AY [address] [place] [address]WK: 03/17/2018 Secondary NOT GIVENUNK [place] Insurance:SELF PAY [facility] Number: Effective Repository Date:2018-03-17 03/17/2018 BELIA S Primary BELIA S [place] [id number] Insurance:JOHN OLSENDOB: [facility] [id number] Hospital 85753Gjw: (330) [facility]: Repository [phone] () [id number] Date:3473-08-57DD [address] [address]AG: 03/17/2018 Secondary NOT GIVENUNK [place] Insurance:SELF PAY [facility] Number: Effective Repository Date:2018-03-17 03/17/2018 BELIA S Primary BELIA S [place] [id number] Insurance:JOHN OLSENDOB: [facility] [id number] Hospital 19268Nmb: (330) [facility]: Repository [phone] () [id number] Date:1065-80-66CU [facility] [address] [place] [address]VX: 03/17/2018 Secondary NOT GIVENUNK [place] Insurance:SELF PAY [facility] Number: Effective Repository Date:2018-03-17 03/17/2018 BELIA S Primary BELIA S [place] [id number] Insurance:JOHN OLSENDOB: [facility] [id number] Hospital 249[address]Ajh: (330) [facility]: Repository [phone] () [id number] Date:0132-76-57DJ [facility] [address] [place] [address]IZ: 03/17/2018 Secondary NOT GIVENUNK [place] Insurance:SELF PAY [facility] Number: Effective Repository Date:2018-03-17 03/17/2018 BELIA S Primary BELIA S [place] [id number] Insurance:JOHN OLSENDOB: [facility] [id number] Hospital 57393Juo: (330) [facility]: Repository [phone] () [id number] Date:0315-85-62OG [facility] [address] [address]XQ: 03/17/2018 Secondary NOT GIVENUNK [place] Insurance:SELF PAY [facility] Number: Effective Repository Date:2018-03-17 03/17/2018 BELIA S Primary BELIA S [place] [id number] [address] Insurance:JOHN OLSENDOB: [facility] [id number] Hospital 02641Rbq: (330) [facility]: Repository [phone] () [id number] Date:0265-10-97ZW [address], [place] [address]LA: 03/17/2018 Secondary NOT GIVENUNK [place] Insurance:SELF PAY [facility] Number: Effective Repository Date:2018-03-17 03/17/2018 BELIA S Primary BELIA S [place] [id number] Insurance:JOHN OLSENDOB: [facility] [id number] Hospital 401[address]Uwx: (330) [facility]: Repository [phone] () [id number] Date:5526-69-12BJ [address] [place] [address]XT: 03/17/2018 Secondary NOT GIVENUNK [place] Insurance:SELF PAY [facility] Number: Effective Repository Date:2018-03-17 03/17/2018 BELIA S Primary BELIA S [place] [id number] Insurance:JOHN OLSENDOB: [facility] [id number] Hospital 250[address]Jzl: (330) [facility] [phone] () [id number] Date:5138-24-37RX [address] [place] [address]JA: 03/17/2018 Secondary NOT GIVENUNK [place] Insurance:SELF PAY [facility] Number: Effective Repository Date:2018-03-17 03/17/2018 BELIA S Primary BELIA S [place] [id number] Insurance:JOHN OLSENDOB: [facility] [id number] Hospital 99968Wrf: (330) [facility]: Repository [phone] () [id number] Date:2406-78-08GE [address] [address]PN: 03/17/2018 Secondary NOT GIVENUNK [place] Insurance:SELF PAY [facility] Number: Effective Repository Date:2018-03-17 03/16/2018 BELIA S Primary BELIA [facility] OLS[facility]OB: Insurance:PRIME TIME OLSENDOB: [facility] E HEALTH (DIOR)Policy [id number] Repository MAIN [place], Number: E [place] [id number] [place] [address]Kdp: [email or web address] Date:2018-03-16 JENNIFERPERLA.[facility] 6077-05-92Wiyv ()Tel: (019) : Name:[address] () ()Tel: (492) [address], [place] [phone] () [address]KL: 03/07/2018 BELIA S Primary BELIA S [place] [id number] Insurance:JOHN OLSENDOB: [facility] [id number] Hospital 15076Ecw: 330 [facility] Number: Repository [phone] () [id number] Date:9035-57-67WU [address] [address]HU: 03/07/2018 Secondary NOT GIVENUNK [place] Insurance:SELF PAY [facility] Number: Effective Repository Date:2018-02-09 01/27/2018 BELIA S Primary BELIA S [place] [id number] Insurance:JOHN OLSENDOB: [facility] [id number] [facility] [address]23[address]Hbu: 330) [facility] Number: Repository [phone] () [id number] Date:1461-80-73QR [address] [place] [address]EI: 01/27/2018 Secondary NOT GIVENUNK [place] Insurance:SELF PAY [facility] Number: Effective Repository Date:2017-10-11 01/19/2018 BELIA S Primary BELIA S [place] [id number] Insurance:JOHN OLSENDOB: [facility] [id number] Hospital 767[address]Ikw: (330) [facility] Number: Repository [phone] () [id number] Date:1328-72-22XF [address] [place] [address]KZ: 01/19/2018 Secondary NOT GIVENUNK [place] Insurance:SELF PAY [facility] Number: Effective Repository Date:2018-01-11 01/06/2018 BELIA S Primary BELIA S [place] [id number] Insurance:JOHN OLSENDOB: [facility] [id number] Hospital 726[address]Wox: (330) [facility] Number: Repository [phone] () [id number] Date:4866-31-83XT [address] [place], [place] [address]WP: 01/06/2018 Secondary NOT GIVENUNK [place] Insurance:SELF PAY [facility] Number: Effective Repository Date:2017-12-13 12/06/2017 BELIA S Primary BELIA S [place] [id number] Insurance:JOHN OLSENDOB: [facility] [id number] Hospital 12584Eay: (330) [facility] Number: Repository [phone] () [id number] Date:9552-82-03ZS [facility] [address] [address]MV: 12/06/2017 Secondary NOT GIVENUNK [place] Insurance:SELF PAY [facility] Number: Effective Repository Date:2017-11-10 12/05/2017 BELIA S Primary BELIA S [place] [id number] Insurance:JOHN OLSENDOB: [facility] [id number] Hospital 946[address]Gox: [facility] Number: Repository [phone] [id number] () Date:7406-21-10AC [address] [address]JP: 12/05/2017 Secondary NOT GIVENUNK [place] Insurance:SELF PAY [facility] Number: Effective Repository Date:2017-05-16 11/08/2017 BELIA S Primary BELIA S [facility]LS[facility]OB: Insurance:PRIME TIME OLSENDOB: [facility] E HEALTH (DIOR)Policy [id number] Repository MAIN [place], Number: E [place] [id number] [place] [address]Nzp: [id number] Date:2017-11-08 - [facility]A.[facility] 9563-35-21Nbuu ()Tel: (361) : Name:Joel LEÓN 000-0000 () ()Tel: (117) [place], [place] [phone] () [address]RR: 11/07/2017 BELIA S Primary BELIA S [place] [id number] Insurance:JOHN OLSENDOB: [facility] [id number] Hospital [address]Ndq: (913) [facility] Number: Repository [phone] () [id number] Date:0698-03-82AV [address] [address]RH: 11/07/2017 Secondary NOT GIVENUNK [place] Insurance:SELF PAY [facility]: Effective Repository Date:2017-10-07 10/03/2017 BELIA S Primary BELIA S [place] [id number] Insurance:JOHN OLSENDOB: [facility] [id number] Hospital 04951Mrq: 330) HMOPolicy Number: Repository [phone] () [id number] Date:1502-57-64CT [address] [place] [address]WB: 10/03/2017 Secondary NOT GIVENUNK [place] Insurance:SELF PAY [facility] Number: Effective Repository Date:2017-09-08 09/26/2017 BELIA S Primary BELIA S [place] [id number] Insurance:JOHN OLSENDOB: [facility] [id number] [facility] [address]48[address]Bnx: HMOPolicy Number: Repository [phone] [id number] () Date:4386-52-59CB [address] [place] [address]YJ: 09/26/2017 Secondary NOT GIVENUNK [place] Insurance:SELF PAY [facility] Number: Effective Repository Date:2017-09-26 09/14/2017 BELIA [facility] BELIA Phillips [facility] OLSENDOB: Insurance:PRIME TIME OLSENDOB: Foundation E HEALTH (DIOR)Policy [id number] Repository MAIN [facility], Number: E MAIN [place], [place] [id number] [place] [address]Dsv: [id number] Date:2017-09-14 - [facility] 2379-92-22Zlkz ()Tel: (382) : Name:JULIANA LEÓN 000-0000 () ()Tel: (603) [place], [place] [phone] () [address]QH: 09/13/2017 BELIA S Primary BELIA uJles [id number] Insurance:JOHN OLSENDOB: [facility] STDFormerly [facility] [id number] Hospital [address]Hnr: 330 HMOPolicy Number: Repository [phone] () [id number] Date:7565-03-89KL [address] [address]AA: 09/13/2017 Secondary NOT GIVENUNK [place] Insurance:SELF PAY [facility] Number: Effective Repository Date:2017-08-26 09/13/2017 BELIA S Primary BELIA S [place] [id number] Insurance:JOHN OLSENDOB: [facility] [id number] Hospital [address]Hhn: (330) [facility] Number: Repository [phone] () [id number] Date:9256-97-69JH [facility] [address] [address]HG: 09/13/2017 Secondary NOT GIVENUNK [place] Insurance:SELF PAY [facility] Number: Effective Repository Date:2017-09-13 09/07/2017 BELIA S Primary BELIA S [place] [id number] Insurance:JOHN OLSENDOB: [facility] [id number] Hospital [address]Pnb: [facility] Number: Repository [phone] [id number] -4 () Date:8304-86-90YO [address] [address]JO: 09/07/2017 Secondary NOT GIVENUNK [place] Insurance:SELF PAY [facility] Number: Effective Repository Date:2017-08-09 09/02/2017 BELIA S Primary BELIA S [place] [id number] Insurance:JOHN OLSENDOB: [facility] [id number] Hospital [address]Nwj: [facility] Number: Repository [phone] [id number] -4 () Date:7995-18-04DY [address] [address]WS: 09/02/2017 Secondary NOT GIVENUNK [place] Insurance:SELF PAY [facility] Number: Effective Repository Date:2017-08-26 09/02/2017 BELIA S Primary BELIA S [place] [id number] Insurance:JOHN OLSENDOB: [facility] [id number] Hospital [address]Ggz: (330) [facility] Number: Repository [phone] () [id number] Date:6496-51-19VJ [address] [address]HM: 09/02/2017 Secondary NOT GIVENUNK [place] Insurance:SELF PAY [facility] Number: Effective Repository Date:2017-09-02 08/26/2017 BELIA S Primary BELIA S [place] [id number] Insurance:JOHN OLSENDOB: [facility] [id number] Hospital [address]Tqx: [facility] [phone] [id number] -4 () Date:0033-17-53TA [facility] [address] [place] [address]FY: 08/26/2017 Secondary NOT GIVENUNK [place] Insurance:SELF PAY [facility] Number: Effective Repository Date:2017-08-26 08/26/2017 BELIA S Primary BELIA S [place] [id number] Insurance:JOHN OLSENDOB: [facility] [id number] Hospital [address]Xmc: [facility] Number: Repository [phone] [id number] -4 () Date:4124-74-38OW [facility] [address] [place] [address]RY: 08/26/2017 Secondary NOT GIVENUNK [place] Insurance:SELF PAY [facility] Number: Effective Repository Date:2017-08-26 08/22/2017 BELIA S Primary BELIA S [place] [id number] Insurance:JOHN OLSENDOB: [facility] [id number] Hospital [address]Hni: [facility] Number: Repository [phone] [id number] (HP) Date:9639-52-45VJ [address] [address]WC: 08/22/2017 Secondary NOT GIVENUNK [place] Insurance:SELF PAY [facility] Number: Effective Repository Date:2017-08-22 08/02/2017 BELIA S Primary BELIA S [place] [id number] Insurance:JOHN OLSENDOB: [facility] [id number] Hospital [address]Gzj: [facility] Number: Repository [phone] [id number] (HP) Date:5590-11-12QU [address] [address]SP: 08/02/2017 Secondary NOT GIVENUNK [place] Insurance:SELF PAY [facility] Number: Effective Repository Date:2017-07-25 07/21/2017 BELIA S Primary BELIA S [place] [id number] Insurance:JOHN OLSENDOB: [facility] [id number] Hospital [address]Vri: [facility] Number: Repository [phone] [id number] (HP) Date:4132-87-05NQ [facility] [address] [address]JJ: 07/21/2017 Secondary NOT GIVENUNK [place] Insurance:SELF PAY [facility] Number: Effective Repository Date:2017-07-19 07/15/2017 BELIA S Primary NOT GIVENUNK [place] [id number] Insurance:SELF PAY [facility] [address]Fsw: Number: Effective Repository [phone] Date:2017-07-14 () 07/15/2017 BELIA S Primary BELIA S [place] [id number] Insurance:JOHN OLSENDOB: [facility] [id number] Hospital [address]Ppx: (330) [facility] Number: Repository [phone] () [id number] Date:4094-23-12PA [facility] [address] [address]RB: 07/15/2017 Secondary NOT GIVENUNK [place] Insurance:SELF PAY [facility] Number: Effective Repository Date:2017-07-15 07/11/2017 BELIA S Primary BELIA S [place] [id number] Insurance:JOHN OLSENDOB: [facility] [id number] Hospital [address]Vvl: [facility] Number: Repository [phone] [id number] -4 (HP) Date:6822-15-66NP [facility] [address] [place] [address]CD: 07/11/2017 Secondary NOT GIVENUNK [place] Insurance:SELF PAY [facility] Number: Effective Repository Date:2017-07-11 07/11/2017 BELIA S Primary BELIA S [place] [id number] Insurance:JOHN OLSENDOB: [facility] [id number] Hospital [address]Xif: [facility] Number: Repository [phone] [id number] -4 (HP) Date:8455-06-54IL [facility] [address] [place] [address]CT: 07/11/2017 Secondary NOT GIVENUNK [place] Insurance:SELF PAY [facility] Number: Effective Repository Date:2017-07-11 07/11/2017 BELIA S Primary BELIA S [place] [id number] Insurance:JOHN OLSENDOB: [facility] [id number] Hospital [address]Bop: (330) [facility] Number: Repository [phone] () [id number] Date:8303-59-36DX [address] [address]FT: 07/11/2017 Secondary NOT GIVENUNK [place] Insurance:SELF PAY [facility] Number: Effective Repository Date:2017-07-11 07/11/2017 BELIA S Primary BELIA S [place] [id number] Insurance:JOHN OLSENDOB: [facility] [id number] Hospital [address]Eod: [facility] Number: Repository [phone] [id number] -4 (HP) Date:1038-94-93HI [address] [address]EU: 07/11/2017 Secondary NOT GIVENUNK [place] Insurance:SELF PAY [facility] Number: Effective Repository Date:2017-07-11 07/11/2017 BELIA S Primary BELIA S [place] [id number] Insurance:JOHN OLSENDOB: [facility] [id number] Hospital [address]Gjv: [facility] Number: Repository [phone] [id number] -4 () Date:9413-50-04QM [facility] [address] [address]DR: 07/11/2017 Secondary NOT GIVENUNK [place] Insurance:SELF PAY [facility] Number: Effective Repository Date:2017-07-11 07/11/2017 BELIA S Primary BELIA S [place] [id number] Insurance:JOHN OLSENDOB: [facility] [id number] Hospital [address]Mbm: [facility] Number: Repository [phone] [id number] -4 () Date:5410-98-77BB [address] [place] [address]PE: 07/11/2017 Secondary NOT GIVENUNK [place] Insurance:SELF PAY [facility] Number: Effective Repository Date:2017-07-11 07/11/2017 BELIA S Primary BELIA S [facility] OLSENDOB: Insurance:PRIME TIME OLSENDOB: [facility] E HEALTH (DIOR)Policy [id number] Repository [place]IN [place], Number: E [address] [place], [place] [id number] [place] [address]Cji: [id number] Date:2017-07-11 - CORKYTel 4045-71-45Pboh ()Tel: (604) : Name:JULIANA LEÓN 000-0000 (WP) (HP)Tel: [phone]) [address], [place] [address] (WP) [address]BA: 06/25/2017 [facility] OLSENDOB: Insurance:PRIME TIME OLSENDOB: [facility] E HEALTH (DIOR)Policy [id number] Repository MAIN [place], Number: [place] [id number] [place] [address]Vrf: [id number] Date:2017-06-25 - [facility]ENTERET.NETTel [id number] (HP)Tel: (000) : Name:JULIANA LEÓN 000-0000 (WP) (HP)Tel: [phone]) [address], [place] [address] (WP) [address]NE: 06/15/2017 [facility] OLSENDOB: Insurance:PRIME TIME OLSENDOB: [facility] E HEALTH (DIOR)Policy [id number] Repository MAIN [place], Number: [place]THA [place] [id number] [place] [address]Lfd: [id number] Date:2017-06-15 - [facility] CENTERENDER.NETTel [id number] (HP)Tel: (000) : Name:JULIANA LEÓN 000-0000 (WP) (HP)Tel: [phone]) [address]355[place], [place] [address] (WP) [address]GE: 06/13/2017 [facility] OLSENDOB: Insurance:PRIME TIME OLSENDOB: [facility] E HEALTH (DIOR)Policy [id number] Repository MAIN [place], Number: [place] [id number] [place] [address]Swg: [id number] Date:2017-06-10 - [facility] [id number] ()Tel: 000) : Name:JULIANA LEÓN 000-0000 (WP) (HP)Tel: [phone]) [address], [place] [address] (WP) [address]CP: 05/16/2017 BELIA S Primary BELIA S [facility] OLSENDOB: Insurance:PRIME TIME OLSENDOB: [facility] E HEALTH (DIOR)Policy [id number] Repository [facility] Number: E [place] [place], [place] [id number] [place] [address]Tlg: [id number] Date:2017-05-16 - [facility] 2155-50-32Tmkv ()Tel: (000) : Name:JULIANA LEÓN 000-0000 (WP) (HP)Tel: [phone]) [address], [place] [phone] (WP) [address]NF: 05/16/2017 BELIA [id number] Primary BELIA [place] [address] [place], Insurance:JOHN OLSENDOB: [place] [address]Bvo: [facility] [id number] [facility] Number: Repository () [id number] Date:6945-84-49WA [address], [place] [address]GQ: 05/16/2017 Secondary NOT GIVENUNK [place] Insurance:SELF PAY [facility] Number: Effective Repository Date:2017-03-15 05/16/2017 Belia [id number] Primary Belia [place] [address] [place], Insurance:JOHN OlsenDOB: [place] [address]Bqh: [facility] [id number] Hospital [facility] Number: Repository () [id number] Date:8209-28-86XN [address], [place] [address]XP: 05/16/2017 Secondary NOT GIVENUNK [place] Insurance:SELF PAY [facility] Number: Effective Repository Date:2017-05-16
== END ==
PROVIDERS: Family Provider Family Medicine; PCP Family Medicine; Referring Provider Family Medicine Geriatric Medicine; Visit Provider Family Medicine Geriatric Medicine
DX: I26.99 Other pulmonary embolism without acute cor pulmonale (principal)
CPT/HCPCS: 71275; Q9967

== ENCOUNTER 2018-05-01 09:24 | Outpatient (RCR) | payer MEDICARE, SELFPAY ==
[2018-03-23 14:13] VITALS: BMI 32.8
[2018-05-01 09:36] VITALS: BP 150/69; PULSE 64; RESP 16; TEMP 36.6; BMI 31.2
--- NOTE | 2018-05-01 21:46 | PN.PCM_ITS ---
Type of Wound Date of Service: 05/01/18 Chief Complaint: Nonhealing hematoma ulcer right gluteal area. History of Wound: Surgery 03/20/18 - Surgical preparation right gluteal and proximal posterior thigh area with incision and drainage and evacuation and excisional debridement traumatic submuscular hematoma with extension to ischial bone and onto proximal posterior thigh (180 cm2). Wound care - VAC. Operative culture - None. Prealbumin from 03/20/18 was 25.2. Encouraged nutritional supplementation with protein to help the healing process. Patient denies fever. Patient's appetite is ok. Progress of Wound: Improved. - Physical Exam Vital Signs Temp Pulse Resp BP 98 F 64 16 150/69 H 05/01/18 09:36 05/01/18 09:36 05/01/18 09:36 05/01/18 09:36 Wound Measurements and Assessment WC - Nurse 1 - General Ulcer Measurement Start: 05/01/18 09:32 Freq: Status: Active Protocol: Activity Type Activity Date Activity User E-Sign Co-Sign Detail Recorded Client Recorded Date Recorded By Document 05/01/18 09:36 [facility] [id number] 05/01/18 09:50 [facility] 05/01/18 09:36 Wound Center Nurse 1 [Ulcer Assessment] #2 RIGHT BUTTOCK -Combined with other wound No -Current Size (cm) - Length 9.5 -Current Size (cm) - Width 1.1 -Current Size (cm) - Depth 0.3 -Total Square Cm 10.45 -Date of Last Picture (Recall this 05/01/18 field) -Photo Taken Yes -Epithelialization None Present -Tunneling No -Undermining/Tunneling No -Circular Undermining No -Exudate Amt Small -Exudate Type Serosanguineous -Wound Margin Distinct, Outline Attached -Granulation Amt Large (67-100%) -Granulation Quality Red -Slough/Fibrin Yes -Necrosis Amt None Present (0 %) -Necrotic Tissue Type Adherent Slough -Structure Exposed None/Limited to Skin Breakdown -Texture (Beth-wound Skin Appearance) Scarring -Moisture (Beth-wound Skin Appearance No Abnormality ) Assessed -Color (Beth-wound Skin Appearance) No Abnormality Assessed -Temperature (Beth-wound Skin No Abnormality Appearance) (Pt Warm) -Tenderness on Palpation (Beth-wound No Skin Appearance) -Ulcer Cleansing Rinsed/ Irrigated with Saline -Foul Odor after Cleansing No -Anesthetic Used 4% Lidocaine Solution [Edema Assessment] -Lower Limb Edema Present NA - Nurse 2 - General Ulcer CM Notes Start: 05/01/18 09:32 Freq: Status: Active Protocol: Activity Type Activity Date Activity User E-Sign Co-Sign Detail Recorded Client Recorded Date Recorded By Document 05/01/18 10:16 RONNY [id number] 05/01/18 10:17 RONNY 05/01/18 10:16 Wound Center Nurse 2 [Procedure/Treatment] #2 RIGHT BUTTOCK -Time 10:16 -Correct Patient Yes -Correct Side, Site, Position Yes -Correct Procedure Yes -Procedure Performed Yes -Type of Procedure Debridement -Clinical Debridement Subcutaneous -Post Debridement Size (cm) - Length 9.5 -Post Debridement Size (cm) - Width 1.2 -Post Debridement Size (cm) - Depth 0.3 -Total Square Cm 11.40 -Wound/Ulcer Outcome Not Healed -Ulcer Cleansing Rinsed/ Irrigated with Saline -Foul Odor after Cleansing No -Bioengineered Tissue No -Bleeding Controlled with Pressure -Offloading No -Treatment Response Procedure Tolerated Well [See Physician Procedure note for Specifics] Pain Scale: 0-10 Numeric [Pain] -Is Patient Pain Free? Yes Debridement Note Post-Debridement Measurements/Treatment - Nurse 2 - General Ulcer CM Notes Start: 05/01/18 09:32 Freq: Status: Active Protocol: Activity Type Activity Date Activity User E-Sign Co-Sign Detail Recorded Client Recorded Date Recorded By Document 05/01/18 10:16 RONNY [id number] 05/01/18 10:17 RONNY 05/01/18 10:16 Wound Center Nurse 2 #2 RIGHT BUTTOCK -Time 10:16 -Correct Patient Yes -Correct Side, Site, Position Yes -Correct Procedure Yes -Procedure Performed Yes -Type of Procedure Debridement -Clinical Debridement Subcutaneous -Post Debridement Size (cm) - Length 9.5 -Post Debridement Size (cm) - Width 1.2 -Post Debridement Size (cm) - Depth 0.3 -Total Square Cm 11.40 -Wound/Ulcer Outcome Not Healed -Ulcer Cleansing Rinsed/ Irrigated with Saline -Foul Odor after Cleansing No -Bioengineered Tissue No -Bleeding Controlled with Pressure -Offloading No -Treatment Response Procedure Tolerated Well Pain Scale: 0-10 Numeric Is Patient Pain Free? Yes Wound debrided: #2 Right gluteal area. Laterality: Right Wound Grade/Stage: 3. Type of Debridement: Excisional debridement Anesthesia Used: 4% Lidocaine Solution Depth: Down to and including healthy tissue, in the subcutaneous layer Percentage of wound debrided: 100 Instrument Used: 3mm curette Tissue Removed: subcutaneous tissue . Severity: Fat Layer Exposed Amount of bleeding with debridement: Mild Bleeding Controlled with: Pressure Patient tolerated procedure well Assessment/Plan Assessment: 1. Nonhealing hematoma ulcer right gluteal alrea. 2. Late effect traumatic submuscular hematoma right gluteal area with extension to ischial bone and onto proximal posterior thigh. 3. Fall from stairs. 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 5. s/p surgical preparation right gluteal and proximal posterior thigh area with incision and drainage and evacuation and excisional debridement traumatic submuscular hematoma with extension to ischial bone and onto proximal posterior thigh (180 cm2). Plan: The ulcer is healing well and is very superficial. The VAC is not needed anymore. Will begin Silver dressing changes daily. Prealbumin from 03/20/18 was 25.2. Encourage nutritional supplementation with protein to help the healing process. Followup 2 weeks.
--- OUTSIDE RECORDS SUMMARY | 2018-07-03 16:23 | XMS RPT_ITS ---
:1940 Author Organization [place] Support Name Relationship Address Phone GILMOREMORTEZA BENAVIDEZ Unavailable [address] + [place] [address] R Unavailable Unavailable Unavailable LUCI RODRÍGUEZ Unavailable [address] + [place] [address] MORTEZA GILMORE Unavailable [address] + [place] [address] R Unavailable Unavailable Unavailable LUCI RODRÍGUEZ Unavailable [address] + [place] [address] MORTEZA GILMORE Unavailable [address] + [place] [address] R Unavailable Unavailable Unavailable LUCI RODRÍGUEZ Unavailable [address] + [place] [address] MORTEZA GILMORE Unavailable [address] + [place] [address] R Unavailable Unavailable Unavailable LUCI RODRÍGUEZ Unavailable [address] + [place] [address] MORTEZA GILMORE Unavailable [address] + [place] [address] R Unavailable Unavailable Unavailable LUCI RODRÍGUEZ Unavailable [address] + [place] [address] MORTEZA GILMORE Unavailable [address] + [place] [address] R Unavailable Unavailable Unavailable LUCI RODRÍGUEZ Unavailable [address] + [place] [address] MORTEZA GILMORE Unavailable [address] + [place] [address] R Unavailable Unavailable Unavailable LUCI RODRÍGUEZ Unavailable [address] + [place] [address] MORTEZA GILMORE Unavailable [address] + [place] [address] R Unavailable Unavailable Unavailable LUCI RODRÍGUEZ Unavailable [address] + [place] [address] WILNER GILMORETER Unavailable [address] + [place] [address] R Unavailable Unavailable Unavailable LUCI RODRÍGUEZ Unavailable [address] + [place] [address] WILNER GILMORETER Unavailable [address] + [place] [address] R Unavailable Unavailable Unavailable LUCI RODRÍGUEZ Unavailable [address] + [place] [address] WILNER GILMORETER Unavailable [address] + [place] [address] R Unavailable Unavailable Unavailable LUCI RODRÍGUEZ Unavailable [address] + [place] [address] DEIRDRE MORTEZA Unavailable [address] + [place] [address] R Unavailable Unavailable Unavailable LUCI RODRÍGUEZ Unavailable [address] + [place] [address] DEIRDRE MORTEZA Unavailable [address] + [place] [address] R Unavailable Unavailable Unavailable LUCI RODRÍGUEZ Unavailable [address] + [place] [address] DEIRDRE MORTEZA Unavailable [address] + [place] [address] R Unavailable Unavailable Unavailable LUCI RODRÍGUEZ Unavailable [address] + [place] [address] DEIRDRE MORTEZA Unavailable [address] + [place] [address] R Unavailable Unavailable Unavailable LUCI RODRÍGUEZ Unavailable [address] + [place] [address] GILMORE, MORTEZA Unavailable [address] + [place] [address] R Unavailable Unavailable Unavailable LUCI RODRÍGUEZ Unavailable [address] + [place] [address] GILMORE MORTEZA Unavailable [address] + [place] [address] R Unavailable Unavailable Unavailable LUCI RODRÍGUEZ Unavailable [address] + [place] [address] DEIRDRE MORTEZA Unavailable [address] + [place] [address] DEIRDRE MORTEZA Unavailable [address] + [place] [address] GILMOREMORTEZA BENAVIDEZ Unavailable [address] + [place] [address] R Unavailable Unavailable Unavailable LUCI RODRÍGUEZ Unavailable [address] + [place] [address] DEIRDRE MORTEZA Unavailable [address] + [place] [address] R Unavailable Unavailable Unavailable LUCI RODRÍGUEZ Unavailable [address] + [place] [address] MORTEZA GILMORE Unavailable [address] + [place] [address] R Unavailable Unavailable Unavailable LUCI RODRÍGUEZ Unavailable [address] + [place] [address] MORTEZA GILMORE Unavailable [address] + [place] [address] R Unavailable Unavailable Unavailable LUCI RODRÍGUEZ Unavailable [address] + [place] [address] MORTEZA GILMORE Unavailable [address] + [place] [address] R Unavailable Unavailable Unavailable LUCI RODRÍGUEZ Unavailable [address] + [place] [address] MORTEZA GILMORE Unavailable [address] [phone] [place] [address] R Unavailable Unavailable Unavailable LUCI RODRÍGUEZ Unavailable . + [place] [address] MORTEZA GILMORE Unavailable [address] + [place] [address] MORTEZA GILMORE Unavailable [address] + [place] [address] DEIRDRE MORTEZA Unavailable [address] + [place] [address] R Unavailable Unavailable Unavailable LUCI RODRÍGUEZ Unavailable [address] + [place] [address] WILNER GILMORETER Unavailable [address] + [place] [address] R Unavailable Unavailable Unavailable LUCI RODRÍGUEZ Unavailable [address] + [place] [address] DEIRDRE MORTEZA Unavailable [address] [phone] [place] [address] R Unavailable Unavailable Unavailable LUCI RODRÍGUEZ Unavailable [address] + [place] [address] WILNER GILMORETER Unavailable [address] + [place] [address] DEIRDRE MORTEZA Unavailable [address] + [place] [address] MORTEZA GILMORE Unavailable [address] + [place] [address] R Unavailable Unavailable Unavailable LUCI RODRÍGUEZ Unavailable [address] + [place] [address] DEIRDRE MORTEZA Unavailable [address] + [place] [address] R Unavailable Unavailable Unavailable LUCI RODRÍGUEZ Unavailable [address] + [place] [address] MORTEZA GILMORE Unavailable [address] [phone] [place] [address] R Unavailable Unavailable Unavailable LUCI RODRÍGUEZ Unavailable [address] + [place] [address] MORTEZA GILMORE Unavailable [address] [phone] [place] [address] R Unavailable Unavailable Unavailable LUCI RODRÍGUEZ Unavailable [address] + [place] [address] MORTEZA GILMORE Unavailable [address] + [place] [address] R Unavailable Unavailable Unavailable LUCI RODRÍGUEZ Unavailable [address] + [place] [address] MORTEZA GILMORE Unavailable [address] [phone] [place] [address] R Unavailable Unavailable Unavailable LUCI RODRÍGUEZ Unavailable . + [place] [address] MORTEZA GILMORE Unavailable [address] [phone] [place] [address] R Unavailable Unavailable Unavailable LUCI RODRÍGUEZ Unavailable Unavailable + MORTEZA GILMORE Unavailable [address] [phone] [place] [address] R Unavailable Unavailable Unavailable LUCI RODRÍGUEZ Unavailable Unavailable + MORTEZA GILMORE Unavailable [address] [phone] [place] [address] R Unavailable Unavailable Unavailable LUCI RODRÍGUEZ Unavailable Unavailable + MORTEZA GILMORE Unavailable [address] [phone] [place] [address] R Unavailable Unavailable Unavailable LUCI RODRÍGUEZ Unavailable Unavailable + MORTEZA GILMORE Unavailable [address] [phone] [place] [address] R Unavailable Unavailable Unavailable LUCI RODRÍGUEZ Unavailable Unavailable + MORTEZA GILMORE Unavailable [address] + [place] [address] R Unavailable Unavailable Unavailable LUCI RODRÍGUEZ Unavailable [address] + [place] [address] MORTEZA GILMORE Unavailable [address] [phone] [place] [address] R Unavailable Unavailable Unavailable LUCI RODRÍGUEZ Unavailable Unavailable + MORTEZA GILMORE Unavailable [address] [phone] [place] [address] R Unavailable Unavailable Unavailable LUCI RODRÍGUEZ Unavailable Unavailable + MORTEZA GILMORE Unavailable [address] [phone] [place] [address] R Unavailable Unavailable Unavailable MORTEZA GILMORE Unavailable [address] [phone] [place] [address] R Unavailable Unavailable Unavailable LUCI RODRÍGUEZ Unavailable Unavailable + DEIRDRE MORTEZA Unavailable [address] [phone] [place] [address] R Unavailable Unavailable Unavailable LUCI RDORÍGUEZ Unavailable Unavailable + MORTEZA GILMORE Unavailable [address] [phone] [place] [address] R Unavailable Unavailable Unavailable LUCI RODRÍGUEZ Unavailable Unavailable + MORTEZA GILMORE Unavailable [address] + [place] [address] MORTEZA GILMORE Unavailable [address] + [place] [address] MORTEZA GILMORE Unavailable [address] + [place] [address] MORTEZA GILMORE Unavailable [address] + [place] [address] WILNER GILMORETER Unavailable [address] + [place] [address] MORTEZA GILMORE Unavailable [address] + [place] [address] WILNER GILMORETER Unavailable [address] + [place] [address] MORTEZA GILMORE Unavailable [address] + [place] [address] WILNER GILMORETER Unavailable [address] + [place] [address] WILNER GILMORETER Unavailable [address] + [place] [address] MORTEZA GILMORE Unavailable [address] [phone] [place] [address] R Unavailable Unavailable Unavailable MORTEZA GILMORE Unavailable [address] [phone] [place] [address] R Unavailable Unavailable Unavailable Care Team Providers [...] Unavailable RON WARREN MD Primary Care Unavailable Rosalba Urbans F Admitting Unavailable James Flores Attending Unavailable WARREN RON Primary Care Unavailable Slaby Gage Consulting Unavailable Jopperi, James Consulting Unavailable Theodore, Mac Chi Admitting Unavailable Theodore, Mac Chi Attending Unavailable Theodore, Mac Chi Referring Unavailable WARREN, RON Primary Care Unavailable Octavia Gage Consulting Unavailable Minnies Nelson F Admitting Unavailable Slaby Gage Attending Unavailable WARREN, RON Primary Care [...] Referring Unavailable WARREN, RON Primary Care Unavailable Braintsonis Nelson F Admitting Unavailable Slaby, Gage Attending Unavailable WARREN, RON Primary Care Unavailable Slaby, Gage Consulting Unavailable Jopperi, James Consulting Unavailable Theodore, Mac Chi Admitting Unavailable Slaby, Gage Attending Unavailable Theodore, Mac Chi Referring Unavailable WARREN, RON Primary Care Unavailable Slaby Gage Consulting Unavailable Theodore, Mac Chi Consulting Unavailable Bradford, Keatchie Attending Unavailable Theodore, Mac Chi Referring Unavailable Rbadford, Davidson Attending Unavailable Hernando Decker Referring Unavailable SlabGage rosa Attending Unavailable WARREN, RON Primary Care Unavailable Zoë Duke Attending Unavailable Cosmo Balderas Attending Unavailable KELVIN RON Referring Unavailable WARREN, RON Primary Care Unavailable Romie, Sharmaine Admitting Unavailable ASHANTI QUINTANA Referring Unavailable WARREN, RON Primary Care Unavailable Sementi, Jessica Attending Unavailable Balderas, Cosmo Consulting Unavailable Romie, Sharmaine Admitting Unavailable ASHANTI QUINTANA Referring Unavailable WARREN, RON Primary Care Unavailable Romie, Sharmaine Consulting Unavailable Hernando Decker Attending Unavailable Romie, Sharmaine Admitting Unavailable Balderas, Cosmo Attending Unavailable ASHANTI QUINTANA Referring Unavailable WARREN, RON Primary Care Unavailable Balderas, Cosmo Consulting Unavailable Sementi, Jessica Consulting Unavailable Romie, Hsarmaine Admitting Unavailable Sementi, Jessica Attending Unavailable ASHANTI QUINTANA Referring Unavailable WARREN, RON Primary Care Unavailable Balderas, Cosmo Consulting Unavailable Sementi, Jessica Consulting Unavailable Romie, Sharmaine Admitting Unavailable Sementi, Jessica Attending Unavailable ASHANTI QUINTANA [facility] Unavailable Balderas, Cosmo Consulting Unavailable Sementi, Jessica Consulting Unavailable Balderas, Cosmo Attending Unavailable Balderas, Cosmo Referring Unavailable WARREN, RON Primary Care Unavailable Balderas, Cosmo Attending Unavailable WARREN, RON Primary Care Unavailable Balderas, Cosmo Referring Unavailable Balderas, Cosmo Attending Unavailable Balderas, Cosmo Referring Unavailable WARREN, RON Primary Care Unavailable Balderas, Cosmo Attending Unavailable Balderas, Cosmo Referring Unavailable WARREN, RON Primary Care Unavailable Balderas, Cosmo Attending Unavailable Balderas, Cosmo Referring Unavailable WARREN, RON Primary Care Unavailable Davidson Felder Attending Unavailable Sementi, Jessica Referring Unavailable KilFranklin castros Attending Unavailable Balderas, Cosmo Attending Unavailable WARREN, [...] Zoë Attending Unavailable Balderas, Cosmo Attending Unavailable Balderas, Cosmo Attending Unavailable Balderas, Cosmo Referring Unavailable WARREN, RON Primary Care Unavailable Balderas, Cosmo Attending Unavailable Balderas, Cosmo Attending Unavailable Balderas, Cosmo Attending Unavailable Balderas, Cosmo Referring Unavailable WARREN, RON Primary Care Unavailable Balderas, Cosmo Attending Unavailable Balderas, Cosmo Referring Unavailable WARREN, RON Primary Care Unavailable Balderas, Cosmo Attending Unavailable Balderas, Cosmo Referring Unavailable RON WARREN Primary Care [...] - Other malaise Theodore, Mac Chi Active [place] 9 / R53.81(ICD-10) [facility] Repository Unknown S31.819A - Unspecified Theodore, Mac Chi Active [place] 9 open wound of right Community buttock, initial Hospital encounter / Repository S31.819A(ICD-10) Unknown R94.31 - Abnormal Bradford, Davidson Active [place] 9 electrocardiogram Community [ECG] [EKG] / Hospital R94.31(ICD-10) Repository Unknown I10 - Essential Bradford, Keatchie Active [place] 9 (primary) hypertension Community / I10(ICD-10) Hospital Repository Unknown I48.0 - Paroxysmal Bradford, Keatchie Active [place] 9 atrial fibrillation / Community I48.0(ICD-10) Hospital Repository Unknown T14.8XXA - Other Gage Dudley Active [place] 8 injury of unspecified Community body region, initial Hospital encounter / Repository T14.8XXA(ICD-10) Unknown S70.01XA - Contusion Gage Dudley Active [place] 8 of right hip, initial Community encounter / Hospital S70.01XA(ICD-10) Repository Unknown I48.91 - Unspecified Cosmo Balderas Active [place] 8 atrial fibrillation / Community I48.91(ICD-10) Hospital Repository Unknown 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 / Hospital Z79.01(ICD-10) Repository Admitting Rheumatoid arthritis MOLLY LOWERY, Active [facility] 8 Diagnosis with rheumatoid factor YARED [facility] of multiple sites Repository without organ or systems involvement / M05.79(ICD-10) Unknown E78.5 - Cosmo Balderas Active [place] 8 Hyperlipidemia, Community unspecified / Hospital E78.5(ICD-10) Repository Unknown I82.409 - Acute Cosmo Balderas Active [place] 8 embolism and Community thrombosis of Hospital unspecified deep veins Repository of unspecified lower extremity / I82.409(ICD-10) Admitting Vitamin D deficiency, KELVIN LOWERY, Active [facility] 8 Diagnosis unspecified / [facility] E55.9(ICD-10) Repository Admitting Rheumatoid arthritis, KELVIN LOWERY, Active [facility] 8 Diagnosis unspecified / RON D[facility] M06.9(ICD-10) Repository Unknown R06.00 - Dyspnea, Cosmo Balderas Active [place] 8 unspecified / Community R06.00(ICD-10) Hospital Repository Unknown R00.1 - Bradycardia, Bradford, Keatchie Active [place] 8 unspecified / Community R00.1(ICD-10) Hospital Repository Admitting Urinary tract DEBBY DR. JOSE Active [facility] 8 Diagnosis infection, site not [facility]IANNE [facility] specified / Repository N39.0(ICD-10) Admitting Hypothyroidism, KELVIN LOWERY, Active [facility] 8 Diagnosis unspecified / [facility] E03.9(ICD-10) Repository Admitting Mixed hyperlipidemia / KELVIN LOWERY, Active [place] [address] Diagnosis E78.2(ICD-10) RON [facility] Repository Admitting Unspecified atrial KELVIN LOWERY, Active [place] [address] Diagnosis fibrillation / RON [facility] I48.91(ICD-10) Repository PROCEDURES PROCEDURES No Procedure Records FoundRESULTS RESULTS DISCHARGE SUMMARY Observed: 04/18/2018 Status: F Source: [place] 8:06 AM 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 Electronically Signed: Sarthak Tucker MD at 13:35 EST Tel [phone], Service support , Chest X-Ray 03/24/18 20:54 IMPRESSION: Right PICC is faintly visualized and probably reaches the proximal superior vena cava. Negative for sequelae of line placement. No acute findings or changes. Electronically Signed: Makenzie Page MD at 21:44 EST , Service support , Consultations 03/22/18 07:01 Consult: Onc/Wound/litigator Routine Comment: Reason for Consult:: vac right [...] 04/18/2018 Status: F Source: [place] 5:30 AM [facility] Order Comment: How was Urine Obtained? [...] URINE SEEN Performed By: #### L400.0001 #### [facility] [address] [place], [address] Observed: 04/18/2018 Status: F Source: [place] CULTURE, URINE 5:30 AM [facility] Urine Culture Below infection level. ORGANISM 1: Mixed Gram Pos AND Gram Neg Org Scales Mound Count 25,000-50,000 MIX CULTURE Mixed contaminants. Submit a new specimen if indicated. Performed By: #### M100.0650 #### [facility] [address] [place], [address] ABD INC DECUB Observed: 04/17/2018 Status: F Source: [place] AND/OR ERECT 6:08 PM [facility] Imaging Services [address] [place] [address] Abd Inc Decub and/or Erect MR#: [id number] Acct: [id number] Name: BELIA GILMORE Rep #: [id number] : 1940 F 77 From: Emelyn Talamantes MD PCP: Ron Warren MD Status: ADM IN Study: Abd Inc Decub and/or Erect Date of Exam: 04/17/18 Exam# [id number] Ordering Dr: Mac Jaimes MD STUDY: X-RAY [...] CC: Ron Warren MD; Mac Jaimes MD Supervisor Propellant Charge Loading: Signed CHEST PA AND LATERAL Observed: 04/17/2018 Status: F Source: [place] 6:08 PM [facility] Imaging Services [address] [place] [address] Chest PA and Lateral MR#: [id number] Acct: [id number] Name: BELIA GILMORE Rep #: [id number] : 1940 F 77 From: Emelyn Talamantes MD PCP: Ron Warren MD Status: ADM IN Study: Chest PA and Lateral Date of Exam: 04/17/18 Exam# [id number] Ordering Dr: Mac Jaimes MD STUDY: X-RAY [...] CC: Ron Warren MD; Mac Jaimes MD Supervisor Propellant Charge Loading: Signed CBC W/DIFF, AUTOMATED Collected: 04/16/2018 Status: F Source: [place] 5:50 PM [facility] TYPE CODE TESTS RESULT OUT OF [...] Lymph 1.31 Performed By: #### L100.0100 #### [facility] [address] [place], [address] BASIC METABOLIC Collected: 04/16/2018 Status: F Source: [place] PROFILE ([facility]) 5:50 PM [facility] TYPE CODE TESTS RESULT OUT OF [...] GAP 6 Performed By: #### L500.2500 #### [facility] [address] [place], [address] BEDSIDE GLUCOSE Collected: 04/16/2018 Status: F Source: [place] 3:23 PM [facility] TYPE CODE TESTS RESULT OUT OF REFERENCE UNITS [facility] LAB L501.080 70-110 mg/dL High BEDSIDE GLU 128 Result Comment: MANAGEMENT OF PATIENT CARE PER NURSING PROTOCOL Performed By: #### L501.080 #### [facility] Point of Care [address] [place] [address] HOME HEALTH PROGRESS Observed: 04/12/2018 Status: F Source: [place] NOTE 8:55 PM 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 Medical Records Department [address] [place] [address] Instructions for Home/Discharge Instructions 04/12/182049 MR#: [id number] Acct: [id number] Name: BELIA GILMORE Rep #: [id number] : 1940 77 From: Mac Jaimes MD PCP: Ron Wraren MD Status: ADM IN - Discharge Diagnoses [...] 04/05/2018 Status: F Source: [place] 5:30 AM [facility] Order Comment: SPECIMEN OBTAINED FROM LINE [...] Lymph 1.39 Performed By: #### L100.0100 #### [facility] [address] [place], [place], [address] BASIC METABOLIC Collected: 04/05/2018 Status: F Source: [place] PROFILE ([facility]) 5:30 AM [facility] Order Comment: SPECIMEN OBTAINED FROM LINE [...] GAP 6 Performed By: #### L500.2500 #### [facility] [address] [place], [address] BASIC METABOLIC Collected: 03/29/2018 Status: F Source: [place] PROFILE ([facility]) 5:20 AM [facility] TYPE CODE TESTS RESULT OUT OF [...] GAP 8 Performed By: #### L500.2500 #### [facility] [address] [facility] [place], [place], [address] VENOUS DUPLEX LOWER Observed: 03/25/2018 Status: F Source: [place] EXTREMITY 1:49 PM [facility] Cardiovascular Services [address] [place] [address] Venous Duplex US - Celso Extrem 03/24/18 1506 MR#: [id number] Acct: [id number] Name: BELIA GILMORE Rep #: [id number] : 1940 77 From: Chas Bonilla MD [...] Dictated: 03/24/18 1506 Date Transcribed: 03/25/18 134 Supervisor Propellant Charge Loading: Signed CXR FOR LINE PLACEMENT Observed: 03/24/2018 Status: F Source: [place] 8:31 PM [facility] Imaging Services [address] [place] [address] CXR for Line Placement MR#: [id number] Acct: [id number] Name: BELIA GILMORE Rep #: [id number] : 1940 F 77 From: Makenzie Page MD PCP: Ron Warren MD Status: ADM IN Study: CXR for Line Placement Date of Exam: 03/24/18 Exam# [id number] Ordering Dr: Mac Jaimes MD STUDY: X-RAY CHEST REASON FOR EXAM: Female, 77 years old. Line placement TECHNIQUE: Single AP portable view of the chest. COMPARISON: Prior chest CT exam of March 23, 2018 FINDINGS: Right PICC is faintly visualized probably reaching the proximal superior vena cava but is not visualized thereafter over the density of the spine and ribs. Lung mcagrry remain expanded without major consolidation, focal atelectasis [...] CC: Ron Warren MD; Mac Jaimes MD Supervisor Propellant Charge Loading: Signed 12 LEAD ELECTROCARDIOGRAM Observed: 03/24/2018 Status: F Source: [place] 11:13 AM [facility] Cardiovascular Services [address] [place] [address] 12 Lead EKG 03/22/18 1522 MR#: [id number] Acct: [id number] Name: BELIA GILMORE Rep #: [id number] : 1940 77 From: Davidson Felder MD Attending Dr: Mac Jaimes MD, Chi Status: ADM IN Ordering Dr: Mac Jaimes MD Date: 03/22/18 Location: [facility] Sex: F C Admitted: 03/21/18 [...] ECG Confirmed by DAVIDSON FELDER MD ([id number]), digital editor LUCI DE LA O ([id number]) on 03/24/2018 11:12:58 AM Referred By: Mac Jaimes Confirmed By:DAVIDSON FELDER MD 03/24/18 1113 Date Davidson Felder MD CC: Ron Warren MD; Mac Jaimes MD Signed ANKLE MIN 3 VIEWS Observed: 03/24/2018 Status: F Source: [place] 9:55 AM [facility] Imaging Services [address] [place] [address] Ankle min 3 Views MR#: [id number] Acct: [id number] Name: BELIA GILMORE Rep #: [id number] : 1940 F 77 From: Sarthak Tucker MD PCP: Ron Warren MD Status: ADM IN Study: Ankle min 3 Views Date of Exam: 03/24/18 Exam# [id number] Ordering Dr: Mac Jaimes MD STUDY: X-RAY [...] Sarthak Tucker MD at 13:35 EST Tel [phone], Service support , CC: Ron Warren MD; Mac Jaimes MD Supervisor Propellant Charge Loading: Signed CTA CHEST W/WO Observed: 03/23/2018 Status: F Source: [place] CONTRAST 4:45 PM [facility] Imaging Services [address] [place] [address] CTA Chest W/WO Contrast MR#: [id number] Acct: [id number] Name: BELIA GILMORE Rep #: [id number] : 1940 F 77 From: Makenzie Page MD PCP: Ron Warren MD Status: REG CLI Study: CTA Chest W/WO Contrast Date of Exam: 03/23/18 Exam# [id number] Ordering Dr: Mac Jaimes MD STUDY: CTA [...] CC: Ron Warren MD; Mac Jaimes MD Supervisor Propellant Charge Loading: Signed CBC W/DIFF, AUTOMATED Collected: 03/22/2018 Status: F Source: [place]ARA 5:25 AM [facility] TYPE CODE TESTS RESULT OUT OF [...] Lymph 1.37 Performed By: #### L100.0100 #### [facility] [address] [facility] [place], [address] OPERATIVE REPORT Observed: 03/22/2018 Status: F Source: [place] 1:11 AM [facility] Medical Records Department [address] [place] [address] Operative Report 03/20/18 1905 MR#: [id number] Acct: [id number] Name: BELIA GILMORE Rep #: [id number] : 1940 77 From: Gage Dudley MD PCP: Ron Warren MD Status: DIS IN Y Location: MS3 RV031-0 Report of Operation Date of Procedure: 03/20/18 Pre-Operative Diagnosis: 1. Traumatic hematoma right gluteal area with extension onto proximal posterior thigh. 2. Fall from stairs. 3. custodial use of anticoagulation. Post-Operative Diagnosis: 1. Traumatic submuscular hematoma right gluteal area with extension to ischial bone and onto proximal posterior thigh. 2. Fall from stairs. 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 Surgery/Procedure Performed:: Surgical preparation [...] step. The walker was for her daughter's lssymz-qj-fcx. This happened earlier in the morning and [...] - 10 x 18 x 6 cm. social media project manager: None Type of Anesthesia:: General Specimen's removed: [...] Yes Code Visit Surgery Charges CPT - 31845 ICD-10 - S30.0xxA, S80.11xA, W19.xxxA, Z79.01 38789 S80.11xA, S30.0xxA, W19.xxxA, Z79.01 34190 S31.819A, S30.0xxA, S80.11xA, W19.xxxA, Z79.01 55746 S31.819A, S30.0xxA, S80.11xA, W19.xxxA, Z79.01 03/22/18 0111 <Electronically signed by Gage Dudley MD> Date Gage Dudley MD CC: James Flores DO; Gage Dudley MD; Hernando Decker DO; Nelson rUban MD; Ron Warren MD; [facility] Signed CONSULTATION Observed: 03/22/2018 Status: F Source: DHARA 12:12 AM [facility] Medical Records Department [address] [place] [address] Consultation 03/18/18 1222 MR#: [id number] Acct: [id number] Name: BELIA GILMORE Rep #: [id number] : 1940 77 From: Gage Dudley MD PCP: Ron Warren MD Status: DIS IN Y Location: MS3 [id number] Reason for Consult Date of Consultation: 03/18/18 Reason for Consultation: Traumatic hematoma right gluteal area. REFERRING PHYSICIAN: Dr. Decker. HELP DESK TEAM LEADER: Dr. Dudley. History of Present Illness: The patient is a 77 year old F who presented to the ED yesterday after falling down a couple of stairs at home. She says that the fall was mechanical in nature, she was bringing a walker out of the attic and she missed a step. The walker was for her daughter's qnasrm-bz-lnv. This happened earlier in the morning and [...] (Chronic) Vitamin D deficiency (Chronic) Depression (Chronic) custodial current use of anticoagulant (Chronic) DVT (deep [...] Atorvastatin Calcium (Lipitor) 20 mg PO QHS [facility] Carvedilol (Coreg) 6.25 mg PO BID [facility] Cholecalciferol (Vitamin D) 5,000 unit PO QODAY [facility] Hydrochlorothiazide (Hctz) 25 mg PO QAM [facility] Levothyroxine Sodium (Synthroid) 100 mcg PO DAILY@0600 [facility] Magnesium Hydroxide (Milk Of Magnesia) 30 ml [...] left heart catheterization Onset Date: 1999 Z98.890 [facility] History of right knee joint replacement Z96.651 History of tonsillectomy and adenoidectomy Z98.890 Hx of cholecystectomy Z90.49 surgical debridement left lower extremity Onset Date: 10/2014 Psychiatric History: Anxiety, Depression 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 2. Fall from stairs. 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 CT Pelvis reviewed. It [...] proceed. Code Visit Inpatient E AND M: 39607 Init Hosp L2 - ICD-10 - S30.0xxA, S80.11xA, W19.xxxA, Z79.01 03/22/18 0012 <Electronically signed by Gage Dudley MD> Date Gage Dudley MD Cosigner Signature (if applicable): Date CC: James Flores DO; Gage Dudley MD; Hernando Decker DO; Nelson Urban MD; Ron Warren MD; [facility] Signed HISTORY AND PHYSICAL Observed: 03/21/2018 Status: F Source: [place] EXAM 8:42 PM [facility] Medical Records Department [address] [place] [address] History and Physical 03/21/182019 MR#: [id number] Acct: [id number] Name: BELIA GILMORE Rep #: [id number] : 1940 77 From: Mac Jaimes MD PCP: Ron Warren MD Status: ADM IN Location: [place] [address] Problem List (1) Atrial fibrillation Status: Chronic [...] with below past medical history presented to [facility] Emergency Department 03/17/2018 with fall. 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 Psychiatric History: Anxiety, Depression ANTHROPOLOGY PROFESSOR History: No pertinent ANTHROPOLOGY PROFESSOR history Lives: Spouse/ Significant Other Smoking Status: [...] with severe epilepsy who lived in a PA and Review of Systems Constitutional: Denies: Chills, [...] 100MG daily, resident doing well with chronic correction use, GDR clinically contraindicated. * L3 compression fracture - Pain control as above. 03/21/182041 <Electronically signed by Mac Jaimes MD> Date Mac Jaimes MD Cosigner Signature: Date (if applicable) CC: Ron Warren MD; Mac Jaimes MD Signed DISCHARGE SUMMARY Observed: 03/21/2018 Status: F Source: DHARA 2:53 PM [facility] Medical Records Department [address] [place] [address] Discharge Summary 03/21/18 1447 MR#: [id number] Acct: [id number] Name: BELIA GILMORE Rep #: [id number] : 1940 77 From: James Flores DO PCP: Ron Warren MD Status: ADM IN Y Location: CA3 GM730-0 Discharge Date and Diagnosis - Problem List [...] Reviewed 08/26/17 @ 13:09 by Zoë Duke) custodial current use of anticoagulant (Chronic) DVT (deep [...] acute intracranial or calvarial abnormality. Electronically Signed: dArian Crawford DO at 13:34 EST Tel [phone], Service support , Consultations 03/21/18 07:32 Consult: Onc/Wound/litigator Routine Comment: Reason for Consult:: wound vac [...] applicable Code Visit Inpatient E AND M: 20084 Disch Hosp 03/21/18 1453 <Electronically signed by James Flores DO> Date James Flores DO Cosigner Signature (if applicable): Date CC: James Flores DO; Ron Warren MD Signed TRANSFER TO [facility] Observed: 03/21/2018 Status: F Source: [facility] 2:44 PM [facility] Medical Records Department [address] [place] [address] Transfer to [facility] MR#: [id number] Acct: [id number] Name: BELIA GILMORE Rep #: [id number] : 1940 77 From: James Flores DO PCP: Ron Warren MD Status: ADM IN BELIA GILMORE (Patient) (Health Ins. Claim No.) (Day of Discharge to Facility) Certification of patient admission REQUIRED AT TIME OF ADMISSION. I CERTIFY THAT POST-HOSPITAL ECF SERVICES ARE REQUIRED TO BE GIVEN ON AN IN-PATIENT BASIS BECAUSE OF THE ABOVE NAMED PATIENT'S NEED FOR [facility] CARE ON A CONTINUING BASIS FOR THE CONDITION(S) FOR WHICH HE/SHE WAS RECEIVING IN-PATIENT HOSPITAL SERVICES PRIOR TO HIS/HER TRANSFER TO THE ECF. 03/21/18 1444 <Electronically signed by James Flores DO> Date James Flores DO - Diet 03/20/18 16:45 Diet: Regular Diet Type of Dietary Supplement:: Mayda ([place]) Is pt able to select menu?: Yes [...] LEAD ELECTROCARDIOGRAM Observed: 03/21/2018 Status: F Source: [place] 9:05 AM [facility] Cardiovascular Services [address] [place] [address] 12 Lead EKG 03/20/18 0528 MR#: [id number] Acct: [id number] Name: BELIA GILMORE Rep #: [id number] : 1940 77 From: Davidson Felder MD Attending Dr: James Flores DO Status: ADM IN Ordering Dr: Bob Peng MD Date: 03/20/18 Location: CA3 Sex: F C Admitted: 03/17/18 Test Reason [...] wave abnormality in Anterior leads Confirmed by BRADFORD LOWERY, DAVIDSON ([id number]), digital editor LUCI DE LA O ([id number]) on 03/21/2018 9:06:41 AM Referred By: THIAGO Confirmed By:DAVIDSON FELDER MD 03/21/18 0906 Date Davidson Felder MD CC: Bob Peng MD; James Flores DO; Ron Warren MD Signed CBC W/DIFF, AUTOMATED Collected: 03/21/2018 Status: F Source: [place] 6:10 AM [facility] TYPE CODE TESTS RESULT OUT OF [...] Lymph 1.18 Performed By: #### L100.0100 #### [facility] [address] [facility]. [place], [place], [address] PROTHROMBIN TIME W/INR Collected: 03/21/2018 Status: F Source: [place] 6:10 AM [facility] TYPE CODE TESTS RESULT OUT OF RANGE REFERENCE UNITS LAB L300.4150 11.7-14.9 SECONDS Normal PROTIME 14.8 LAB L300.4200 Normal INR 1.2 Performed By: #### L300.3900 #### [facility] [address] [facility] [place], [address] BASIC METABOLIC Collected: 03/21/2018 Status: F Source: [place] PROFILE (BMP) 6:10 AM [facility] TYPE CODE TESTS RESULT OUT OF [...] GAP 8 Performed By: #### L500.2500 #### [facility] [address] [place], [place], [address] CBC-COMPLETE BLOOD CNT Collected: 03/20/2018 Status: F Source: DHARA NO DIFF 5:08 PM [facility] TYPE CODE TESTS RESULT OUT OF [...] MPV 10.5 Performed By: #### L100.0500 #### [facility] [address] [place], [place], [address] BASIC METABOLIC Collected: 03/20/2018 Status: F Source: [place] PROFILE (BMP) 5:08 PM [facility] TYPE CODE TESTS RESULT OUT OF [...] 9 Performed By: #### L500.2500, L506.0500 #### [facility] [address] [place], [place], [address] PREALBUMIN Collected: 03/20/2018 Status: F Source: [place] 5:08 PM [facility] TYPE CODE TESTS RESULT OUT OF RANGE REFERENCE UNITS LAB L506.0500 20.0-40.0 mg/dL Normal PREALBUMIN 25.2 Performed By: #### L500.2500, L506.0500 #### [facility] [address] [place], [address] TYPE AND SCREEN Collected: 03/20/2018 Status: F Source: [place] 12:05 PM [facility] Order Comment: CMV NEG? N Number [...] NEGATIVE Screen Performed By: #### B101.7450 #### [facility] [place], [address] Collected: 03/20/2018 Status: F Source: [place] 12:05 PM [facility] TYPE CODE TESTS RESULT OUT OF REFERENCE UNITS RANGE LAB U100.0000 [id number] TRANSFUSED PRODUCT: T AND S with Crossmatch, Red Cells COUNT: 2 Performed By: #### U100.0000 #### [facility] - refer to report for specific site CBC W/DIFF, AUTOMATED Collected: 03/20/2018 Status: F Source: [place] 5:06 AM [facility] TYPE CODE TESTS RESULT OUT OF [...] Lymph 1.17 Performed By: #### L100.0100 #### [facility] [address] [place], [address] PROTHROMBIN TIME W/INR Collected: 03/20/2018 Status: F Source: [place] 5:06 AM [facility] TYPE CODE TESTS RESULT OUT OF RANGE REFERENCE UNITS LAB L300.4150 11.7-14.9 SECONDS High PROTIME 15.2 LAB L300.4200 Normal INR 1.2 Performed By: #### L300.3900, L300.4310 #### [facility] [address] [place], [address] PARTIAL THROMBOPLAST Collected: 03/20/2018 Status: F Source: [place] TIME 5:06 AM [facility] TYPE CODE TESTS RESULT OUT OF REFERENCE UNITS RANGE LAB L300.4310 24.1-36.2 Seconds Low PTT 23.4 Performed By: #### L300.3900, L300.4310 #### [facility] [address] [place], [address] BASIC METABOLIC Collected: 03/20/2018 Status: F Source: [place] PROFILE (BMP) 5:06 AM [facility] TYPE CODE TESTS RESULT OUT OF [...] 6 Performed By: #### L500.2500, L501.9520 #### [facility] [address] [facility] [place], [address] THYROID STIM HORMONE Collected: 03/20/2018 Status: F Source: [place] (TSH) 5:06 AM [facility] TYPE CODE TESTS RESULT OUT OF RANGE REFERENCE UNITS LAB L501.9520 0.358-3.74 uIU/mL Normal TSH 1.50 Performed By: #### L500.2500, L501.9520 #### [facility] [address] [facility] [place], [address] THROMBUS Observed: 03/20/2018 Status: F Source: [place] 12:00 AM [facility] Patient: BELIA GILMORE : 1940 (77/F) Acct Num: [id number] Phys: James Flores DO Unit Num: [id number] Loc: MS3 RX463-8 Specimen: [id number] Received: 03/20/181609 Spec Type: THROMBUS TISSUES 1 [...] cut surfaces. No mass lesion is identified. Package Drier sections are submitted in two cassettes. / SJ:yonis 03/21/18 TC: 5 CT: 85903 HEADER OPERATION: Surgical preparation right gluteal area with incision and drain PRE-OP DIAGNOSIS: Hematoma right gluteal and ischial area with extension to thigh TISSUE SUBMITTED: Hematoma and tissue right gluteal MICROSCOPIC DESCRIPTION Slides are reviewed. MICROSCOPIC DIAGNOSIS Soft tissue of right gluteal region, excision: Skin and soft tissue with organizing hematoma in deep soft tissue consistent with hematoma. AM:yonis 03/22/18 Signed [facility] 03/22/18 <signature on file> Performed By: #### PTHRO #### [facility] [address] [place], [address] PROTHROMBIN TIME W/INR Collected: 03/19/2018 Status: F Source: [place] 6:15 AM [facility] TYPE CODE TESTS RESULT OUT OF RANGE REFERENCE UNITS LAB L300.4150 11.7-14.9 SECONDS High PROTIME 17.0 LAB L300.4200 Normal INR 1.4 Performed By: #### L300.3900 #### [facility] [address] [facility] [place], [address] BRAIN/HEAD WITHOUT Observed: 03/18/2018 Status: F Source: [place] CONTRAST 12:25 PM [facility] Imaging Services [address] [place] [address] Brain/Head without Contrast MR#: [id number] Acct: [id number] Name: BELIA GILMORE Rep #: [id number] : 1940 F 77 From: Adrian Crawford DO PCP: Ron Warren MD Status: ADM FERNANDO Study: Brain/Head without Contrast Date of Exam: 03/18/18 Exam# [id number] Ordering Dr: Gage Dudley MD STUDY: CT [...] Adrian Crawford DO at 13:34 EST Tel [phone], Service support , CC: Gage Dudley MD; Ron Warren MD Supervisor Propellant Charge Loading: Signed CBC W/DIFF, AUTOMATED Collected: 03/18/2018 Status: F Source: [place] 7:25 AM [facility] TYPE CODE TESTS RESULT OUT OF [...] Lymph 1.22 Performed By: #### L100.0100 #### [facility] [place], [address] BASIC METABOLIC Collected: 03/18/2018 Status: F Source: [place] PROFILE ([facility]) 7:25 AM [facility] TYPE CODE TESTS RESULT OUT OF [...] GAP 6 Performed By: #### L500.2500 #### [facility] [address] [place], [address] PROTHROMBIN TIME W/INR Collected: 03/18/2018 Status: F Source: [place] 7:25 AM [facility] TYPE CODE TESTS RESULT OUT OF RANGE REFERENCE UNITS LAB L300.4150 11.7-14.9 SECONDS High PROTIME 31.4 LAB L300.4200 Normal INR 3.0 Performed By: #### L300.3900 #### [facility] [address] [place], [address] HISTORY AND PHYSICAL Observed: 03/18/2018 Status: F Source: [place] EXAM 2:16 AM [facility] Medical Records Department [address] [place] [address] History and Physical 03/17/18 2241 MR#: [id number] Acct: [id number] Name: BELIA GILMORE Rep #: [id number] : 1940 77 From: Nelson Urban MD PCP: Ron Warren MD Status: ADM FERNANDO Y Location: [place] [address] Problem List (1) Fall Status: Acute (2) [...] step. The walker was for her daughter's ivtjag-ee-qph. This happened earlier in the morning and [...] found to be small bowel and her speed belt sander felt that it would be prudent to put her on Coumadin because the levels could be monitored. Past Medical History Past Medical History (Chronic Problems): Chronic Problems (Last Reviewed 08/26/17 @ 13:09 by Zoë Duke) custodial current use of anticoagulant (Chronic) DVT (deep [...] heart catheterization Onset Date: 1999 Z98.8[address] [facility] History of right knee joint replacement Z96.651 History of tonsillectomy and adenoidectomy Z98.890 Hx of cholecystectomy Z90.49 surgical debridement left lower extremity Onset Date: 10/2014 Psychiatric History: Anxiety, Depression ANTHROPOLOGY PROFESSOR History: No pertinent ANTHROPOLOGY PROFESSOR history Smoking Status: Never smoker - *Family [...] SCDs Code Visit OBSV E AND M: 13180 Initial observation care L3 03/18/18 0216 <Electronically signed by Nelson Urban MD> Date Nelson Urban MD Cosigner Signature: Date (if applicable) CC: Nelson Urban MD; Ron Warren MD Signed EMERGENCY DEPARTMENT Observed: 03/18/2018 Status: F Source: [place] SUMMARY 12:29 AM [facility] Medical Records Department [address] [place] [address] Emergency Department Summary 03/17/18 2147 MR#: [id number] Acct: [id number] Name: BELIA GILMORE Rep #: [id number] : 1940 77 From: Dennis Robert MD [...] Mechanical fall This note was generated with [employer] dictation software. It may contain incorrect words, spelling, and punctuation that were not noted in review of the chart prior to signing ED Disposition - Plan for ED Patient: Disposition: Acute Care Hospital [facility] Chief Complaint: Fall What to do if you have Problems For any increased pain, shortness of breath, bleeding, nausea or vomiting, chest pain, or any unexpected problems, contact your Primary Care Provider. Call [facility] ([phone]) or report to the closest Emergency Room. Call 911 if necessary. 03/18/18 0029 <Electronically signed by Dennis Robert MD> Date Dennis Robert MD Cosigner Signature (If Indicated): Date CC: Ron Warren MD CBC W/DIFF, AUTOMATED Collected: 03/17/2018 Status: F Source: [place] 6:45 PM [facility] TYPE CODE TESTS RESULT OUT OF [...] Lymph 1.22 Performed By: #### L100.0100 #### [facility] [address] [place], [address] BASIC METABOLIC Collected: 03/17/2018 Status: F Source: [place] PROFILE (BMP) 6:45 PM [facility] TYPE CODE TESTS RESULT OUT OF [...] GAP 10 Performed By: #### L500.2500 #### [facility] [address] [place], [address] CPK TOTAL, CREATINE Collected: 03/17/2018 Status: F Source: DHARA KINASE 6:45 PM [facility] TYPE CODE TESTS RESULT OUT OF RANGE REFERENCE UNITS LAB L501.3620 26-192 U/L Normal CPK TOTAL 108 Performed By: #### L501.3620 #### [facility] [address] [facility] [place], [address] PROTHROMBIN TIME W/INR Collected: 03/17/2018 Status: F Source: DHARA 6:45 PM [facility] TYPE CODE TESTS RESULT OUT OF RANGE REFERENCE UNITS LAB L300.4150 11.7-14.9 SECONDS High PROTIME 31.8 LAB L300.4200 Normal INR 3.1 Performed By: #### L300.3900, L300.4310 #### [facility] [address] [facility] [place], [address] PARTIAL THROMBOPLAST Collected: 03/17/2018 Status: F Source: [place]ARA TIME 6:45 PM [facility] TYPE CODE TESTS RESULT OUT OF RANGE REFERENCE UNITS LAB L300.4310 24.1-36.2 Seconds Normal PTT 31.0 Performed By: #### L300.3900, L300.4310 #### [facility] [address] [facility] [place], [address] SPINE LUMBAR WITHOUT Observed: 03/17/2018 Status: F Source: [place] CONTRAST 6:36 PM [facility] Imaging Services [address] [place] [address] Spine Lumbar without Contrast MR#: [id number] Acct: [id number] Name: BELIA GILMORE Rep #: [id number] : 1940 F 77 From: Nancy Bryant MD PCP: Ron Warren MD Status: REG ER Study: Spine Lumbar without Contrast Date of Exam: 03/17/18 Exam# [id number] Ordering Dr: Dennis Robert MD STUDY: CT [...] , CC: Dennis Robert; Ron Warren MD Supervisor Propellant Charge Loading: Signed PELVIS WITHOUT IV Observed: 03/17/2018 Status: F Source: [place] CONTRAST 6:36 PM [facility] Imaging Services [address] [place] [address] Pelvis without IV Contrast MR#: [id number] Acct: [id number] Name: BELIA GILMORE Rep #: [id number] : 1940 F 77 From: Nancy Bryant MD PCP: Ron Warren MD Status: REG ER Study: Pelvis without IV Contrast Date of Exam: 03/17/18 Exam# [id number] Ordering Dr: Dennis Robert MD STUDY: CT [...] , CC: Dennis Robert; Ron Warren MD Supervisor Propellant Charge Loading: Signed PROTHROMBIN TIME W/INR Collected: 03/07/2018 Status: F Source: DHARA 3:14 PM [facility] TYPE CODE TESTS RESULT OUT OF RANGE REFERENCE UNITS LAB L300.4150 11.7-14.9 SECONDS High PROTIME 20.6 LAB L300.4200 Normal INR 1.8 Performed By: #### L300.3900 #### [facility] [address] [place], [address] PROTHROMBIN TIME W/INR Collected: 02/24/2018 Status: F Source: DHARA 1:57 PM [facility] TYPE CODE TESTS RESULT OUT OF RANGE REFERENCE UNITS LAB L300.4150 11.7-14.9 SECONDS High PROTIME 19.1 LAB L300.4200 Normal INR 1.6 Performed By: #### L300.3900 #### [facility] [address] [place], [address] PROTHROMBIN TIME W/INR Collected: 02/10/2018 Status: F Source: DHARA 4:20 PM [facility] TYPE CODE TESTS RESULT OUT OF RANGE REFERENCE UNITS LAB L300.4150 11.7-14.9 SECONDS High PROTIME 22.9 LAB L300.4200 Normal INR 2.0 Performed By: #### L300.3900 #### [facility] [address] [place], [address] CARDIOLOGY VISIT Observed: 01/28/2018 Status: F Source: DHARA REPORT 10:26 AM [facility] 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, [address] PROTHROMBIN TIME W/INR Collected: 01/06/2018 Status: F Source: [place] 3:28 PM [facility] [place] TYPE CODE TESTS RESULT OUT OF RANGE REFERENCE UNITS LAB L300.4150 11.7-14.9 SECONDS High PROTIME 21.2 LAB L300.4200 Normal INR 1.8 Performed By: #### L300.3900 #### [facility] [address] [place], [address] PROTHROMBIN TIME W/INR Collected: 12/23/2017 Status: F Source: [place] 10:27 AM [facility] [place] TYPE CODE TESTS RESULT OUT OF RANGE REFERENCE UNITS LAB L300.4150 11.7-14.9 SECONDS High PROTIME 22.4 LAB L300.4200 Normal INR 2.0 Performed By: #### L300.3900 #### [facility] [address] [place], [address] PROTHROMBIN TIME W/INR Collected: 12/06/2017 Status: F Source: [place] 2:19 PM [facility] [place] TYPE CODE TESTS RESULT OUT OF RANGE REFERENCE UNITS LAB L300.4150 11.7-14.9 SECONDS High PROTIME 19.9 LAB L300.4200 Normal INR 1.7 Performed By: #### L300.3900 #### [facility] [address] [place], [address] BUN Collected: 11/08/2017 Status: F Source: [facility] 11:23 AM [facility] EMERGENCY [facility]PARTMENT REPOSITORY TYPE CODE TESTS RESULT OUT OF RANGE REFERENCE UNITS LAB BUN(LOINC) 8.0-22.0 mg/dL BUN 18.0 Performed By: #### BUN, AST, ALB, CRP, CRE, ALT, GFR #### [facility] [address] [place] [address] AST Collected: 11/08/2017 Status: F Source: [facility] 11:23 AM [facility] REPOSITORY TYPE CODE TESTS RESULT OUT OF RANGE REFERENCE UNITS LAB AST(LOINC) 8-34 U/L AST/SGOT 28 Performed By: #### BUN, AST, ALB, CRP, CRE, ALT, GFR #### [facility] [address] [place] [address] ALB Collected: 11/08/2017 Status: F Source: [facility] 11:23 AM [facility] REPOSITORY TYPE CODE TESTS RESULT OUT OF REFERENCE UNITS RANGE LAB ALB(LOINC) 3.2-4.8 G/dL Albumin Level 3.6 Performed By: #### BUN, AST, ALB, CRP, CRE, ALT, GFR #### [place] [id number] [place] [address] CRP Collected: 11/08/2017 Status: F Source: [facility] 11:23 AM [facility] REPOSITORY TYPE CODE TESTS RESULT OUT OF REFERENCE UNITS RANGE LAB CRP(LOINC) <=0.80 mg/dL C-Reactive 0.12 Protein Performed By: #### BUN, AST, ALB, CRP, CRE, ALT, GFR #### [place] [address] CRE Collected: 11/08/2017 Status: F Source: [facility] 11:23 AM [facility] REPOSITORY TYPE CODE TESTS RESULT OUT OF REFERENCE UNITS RANGE LAB CRE(LOINC) 0.50-1.20 mg/dL Creatinine Lvl 1.06 (s) Performed By: #### BUN, AST, ALB, CRP, CRE, ALT, GFR #### [place] [address] ALT/SGPT Collected: 11/08/2017 Status: F Source: [facility] 11:23 AM [facility] EM[facility] REPOSITORY TYPE CODE TESTS RESULT OUT OF RANGE REFERENCE UNITS LAB ALT(LOINC) 10-49 U/L ALT/SGPT 35 Performed By: #### BUN, AST, ALB, CRP, CRE, ALT, GFR #### [place] [address] .GFR Collected: 11/08/2017 Status: F Source: [facility] 11:23 AM [facility]PART[facility] REPOSITORY TYPE CODE TESTS RESULT OUT OF REFERENCE UNITS RANGE LAB GFRAA(LOINC ml/min/1.73 ) sqm GFR >60 Citizen Of [place] Result Comment: GFR Population mean for , [...] AST, ALB, CRP, CRE, ALT, GFR #### [address] [address] PROTHROMBIN TIME W/INR Collected: 11/07/2017 Status: F Source: [place] 3:08 PM [facility] TYPE CODE TESTS RESULT OUT OF RANGE REFERENCE UNITS LAB L300.4150 11.7-14.9 SECONDS High PROTIME 25.5 LAB L300.4200 Normal INR 2.3 Performed By: #### L300.3900 #### [facility] [address] [facility] [place], [place], [address] PROTHROMBIN TIME W/INR Collected: 10/24/2017 Status: F Source: [place] 4:06 PM [facility] TYPE CODE TESTS RESULT OUT OF RANGE REFERENCE UNITS LAB L300.4150 11.7-14.9 SECONDS High PROTIME 29.4 LAB L300.4200 Normal INR 2.8 Performed By: #### L300.3900 #### [facility] [address] [place], [address] PROTHROMBIN TIME W/INR Collected: 10/10/2017 Status: F Source: [place] 2:07 PM [facility] TYPE CODE TESTS RESULT OUT OF RANGE REFERENCE UNITS LAB L300.4150 11.7-14.9 SECONDS High PROTIME 26.1 LAB L300.4200 Normal INR 2.4 Performed By: #### L300.3900 #### [facility] [address] [facility] [place], [address] PROTHROMBIN TIME W/INR Collected: 10/03/2017 Status: F Source: [place] 3:46 PM [facility] TYPE CODE TESTS RESULT OUT OF RANGE REFERENCE UNITS LAB L300.4150 11.7-14.9 SECONDS High PROTIME 16.3 LAB L300.4200 Normal INR 1.3 Performed By: #### L300.3900 #### [facility] [address] [place], [address] BASIC METABOLIC Collected: 10/03/2017 Status: F Source: [place] PROFILE (BMP) 3:45 PM [facility] [place] TYPE CODE TESTS RESULT OUT OF [...] GAP 8 Performed By: #### L500.2500 #### [facility] [address] [place], [address] DOWNTIME REPORT Observed: 09/29/2017 Status: F Source: [place] 12:12 PM [facility] Medical Records Department [address] [place] [address] Downtime Report MR#: [id number] Acct: [id number] Name: BELIA GILMORE Rep #: [id number] : 1940 77 From: Brett De La O PCP: Ron Warren MD Status: REG CLI This patient was seen during an EMR downtime September 12, 2017 - September 19, 2017. This patient may have a combination of paper and electronic documentation or all paper documentation. All documentation is viewable within the e-chart portion of [employer] for each patient visit. DOWNTIME REPORT Observed: 09/29/2017 Status: F Source: [place] 12:08 PM [facility] Medical Records Department [address] [place] [address] Downtime Report MR#: [id number] Acct: [id number] Name: BELIA GILMORE Rep #: [id number] : 1940 77 From: Brett De La O PCP: Ron Warren MD Status: REG RCR This patient was seen during an EMR downtime September 12, 2017 - September 19, 2017. This patient may have a combination of paper and electronic documentation or all paper documentation. All documentation is viewable within the e-chart portion of [employer] for each patient visit. STRESS TEST ECHO W/O Observed: 09/26/2017 Status: F Source: [place] CONTRAST 3:30 PM [facility] Cardiovascular Services [address] [place] [address] Stress Test Echo w/o Contrast MR#: [id number] Acct: [id number] Name: BELIA GILMORE Rep #: [id number] : 1940 77 From: Cosmo Balderas MD [...] Dictated: 09/13/17 1003 Date Transcribed: 09/26/17 1014 Supervisor Propellant Charge Loading: Signed PROTHROMBIN TIME W/INR Collected: 09/19/2017 Status: F Source: [place] 3:10 PM [facility] TYPE CODE TESTS RESULT OUT OF RANGE REFERENCE UNITS LAB L300.4150 11.7-14.9 SECONDS High PROTIME 24.1 LAB L300.4200 Normal INR 2.2 Performed By: #### L300.3900 #### [facility] [address] [place], [address] TSH Collected: 09/14/2017 Status: F Source: [facility] 10:51 AM [facility] EM[facility] REPOSITORY TYPE CODE TESTS RESULT OUT OF RANGE REFERENCE UNITS LAB TSH(LOINC) 0.27-4.20 mcIU/mL TSH 1.82 Performed By: #### TSH, FT4, LIPID, CMP, GFR #### [address] [address] #### [facility] #### [address] [address] FT4 Collected: 09/14/2017 Status: F Source: [facility] 10:51 AM [facility] REPOSITORY TYPE CODE TESTS RESULT OUT OF RANGE REFERENCE UNITS LAB FT4(LOINC) 0.6-1.7 ng/mL Free T4 1.4 Performed By: #### TSH, FT4, LIPID, CMP, GFR #### [address] [address] #### [facility] #### [address] [address] LIPID Collected: 09/14/2017 Status: F Source: [employer] 10:51 AM [facility] EM[facility] REPOSITORY TYPE CODE TESTS RESULT OUT OF [...] #### TSH, FT4, LIPID, CMP, GFR #### [address] [address] #### VIDH #### [facility] [address] [place] [address] CMP Collected: 09/14/2017 Status: F Source: [place] [employer] 10:51 AM [facility] EM[facility]GENC[facility]PART[facility] REPOSITORY TYPE CODE TESTS RESULT OUT OF [...] #### TSH, FT4, LIPID, CMP, GFR #### [place] [address] [place], [place] [address] #### [facility] #### [address] [address] .GFR Collected: 09/14/2017 Status: F Source: [facility] 10:51 AM [facility] REPOSITORY TYPE CODE TESTS RESULT OUT OF REFERENCE UNITS RANGE LAB GFRAA(LOINC ml/min/1.73 ) sqm GFR 64 Citizen Of [place] Result Comment: GFR Population mean for , [...] #### TSH, FT4, LIPID, CMP, GFR #### [address] [address] #### [facility] #### [address] [address] VIDH Collected: 09/14/2017 Status: F Source: [facility] 10:51 AM [facility] EM[facility]PART[facility] REPOSITORY TYPE CODE TESTS RESULT OUT OF RANGE REFERENCE UNITS LAB VIDH(LOINC) ng/mL Vit. D 84 25-Hydroxy Result Comment: Interpretive Values Based on Total 25(OH)D: Severe Deficiency <20 ng/mL Mild to Moderate Deficiency 20-30 ng/mL Optimum Levels 30-100 ng/mL Toxicity Possible >100 ng/mL Performed By: #### TSH, FT4, LIPID, CMP, GFR #### [address] [address] #### [facility] #### [address] [address] PROTHROMBIN TIME W/INR Collected: 09/07/2017 Status: F Source: [place] 1:40 PM [facility] [place] TYPE CODE TESTS RESULT OUT OF RANGE REFERENCE UNITS LAB L300.4150 11.7-14.9 SECONDS High PROTIME 20.4 LAB L300.4200 Normal INR 1.7 Performed By: #### L300.3900 #### [facility] [address] [facility] [place], [address] ECHOCARDIOGRAM COMPLETE Observed: 09/06/2017 Status: F Source: [place] 9:38 AM [facility] Cardiovascular Services [address] [place] [address] Echo Complete 09/02/17 1455 MR#: [id number] Acct: [id number] Name: BELIA GILMORE Rep #: [id number] : 1940 77 From: Cosmo Balderas MD Attending Dr: Cosmo Balderas MD Status: REG CLI Ordering Dr: Cosmo Balderas MD Date: 09/02/17 Location: [facility] Sex: F C Admitted: Reason For Study: [...] Date Dictated: 09/02/17 1455 Date Transcribed: 09/06/17936 Supervisor Propellant Charge Loading: Signed PROTHROMBIN TIME W/INR Collected: 08/30/2017 Status: F Source: [place] 2:03 PM [facility] [place] TYPE CODE TESTS RESULT OUT OF RANGE REFERENCE UNITS LAB L300.4150 11.7-14.9 SECONDS High PROTIME 19.5 LAB L300.4200 Normal INR 1.6 Performed By: #### L300.3900 #### [facility] [address] [place], [address] CARDIOLOGY VISIT Observed: 08/26/2017 Status: F Source: [place] REPORT 1:39 PM [facility] [address] [place] [address] OFFICE VISIT Date of Service: 08/26/17 MR#: [id number] Acct: [id number] Name: BELIA GILMORE Rep #: [id number] : 1940 Provider: Cosmo Balderas MD Age/Sex: 77/F Location: [facility] Status: Signed HPI HPI Chief Complaint: Routine [...] She suffered a mechanical fall while in [place] tripping over a curb required 12 chanda [...] BLE edema and fatigue since increasing cardizem. [facility] Medical History DVT (deep venous thrombosis) (Chronic) [...] Paroxysmal atrial fibrillation I48.0 Hyperlipidemia E78.5 08/26/17 9084 <Electronically signed by Cosmo Balderas MD> Date Cosmo Beck Signature: Date (if applicable) CC: Ron Warren MD PROTHROMBIN TIME W/INR Collected: 08/22/2017 Status: F Source: [place] 2:23 PM [facility] [place] TYPE CODE TESTS RESULT OUT OF RANGE REFERENCE UNITS LAB L300.4150 11.7-14.9 SECONDS High PROTIME 21.3 LAB L300.4200 Normal INR 1.8 Performed By: #### L300.3900 #### [facility] [address] [place], [place], [address] ([phone] PROTHROMBIN TIME W/INR Collected: 08/13/2017 Status: F Source: [place] 11:34 AM [facility] [place] TYPE CODE TESTS RESULT OUT OF RANGE REFERENCE UNITS LAB L300.4150 11.7-14.9 SECONDS High PROTIME 19.5 LAB L300.4200 Normal INR 1.6 Performed By: #### L300.3900 #### [facility] [address] [place], [place], [address] PROTHROMBIN TIME W/INR Collected: 08/02/2017 Status: F Source: [place] 3:17 PM [facility] [place] TYPE CODE TESTS RESULT OUT OF RANGE REFERENCE UNITS LAB L300.4150 11.7-14.9 SECONDS High PROTIME 17.8 LAB L300.4200 Normal INR 1.5 Performed By: #### L300.3900 #### [facility] [address] [place], [address] PROTHROMBIN TIME W/INR Collected: 07/25/2017 Status: F Source: [place] 12:57 PM [facility] TYPE CODE TESTS RESULT OUT OF RANGE REFERENCE UNITS LAB L300.4150 11.7-14.9 SECONDS High PROTIME 15.8 LAB L300.4200 Normal INR 1.3 Performed By: #### L300.3900 #### [facility] [address] [place], [place], [address] [phone] PROTHROMBIN TIME W/INR Collected: 07/21/2017 Status: F Source: [place] 10:49 AM [facility] Order Comment: Comments: STANDING ORDER Comments: STANDING ORDER TYPE CODE TESTS RESULT OUT OF RANGE REFERENCE UNITS LAB L300.4150 11.7-14.9 SECONDS Normal PROTIME 14.7 LAB L300.4200 Normal INR 1.2 Performed By: #### L300.3900 #### [facility] [address] [place], [address] 12 LEAD ELECTROCARDIOGRAM Observed: 07/15/2017 Status: F Source: [place] 1:10 PM [facility] Cardiovascular Services [address] [place] [address] 12 Lead EKG 07/11/171946 MR#: [id number] Acct: [id number] Name: BELIA GILMORE Rep #: [id number] : 1940 77 From: Davidson Felder MD Attending Dr: Jessica Mendez Status: DIS IN Ordering Dr: Sharmaine Melendez MD Date: 07/11/17 Location: [facility] Sex: F C Admitted: 07/11/17 Test Reason [...] leads Confirmed by DAVIDSON FELDER MD ([id number]), digital editor LUCI DE LA O ([id number]) on 07/15/2017 1:09:41 PM Referred By: KENZIE MELENDEZ Confirmed By:DAVIDSON FELDER MD 07/15/17 1309 Date Davidson Fedler MD CC: Jessica Mendez; Sharmaine Melendez MD; OUT OF TOWN DOCTOR; RON WARREN Signed DISCHARGE SUMMARY Observed: 07/14/2017 Status: F Source: [place] 6:54 AM [facility] Medical Records Department [address] [place] [address] Discharge Summary 07/13/17 1640 MR#: [id number] Acct: [id number] Name: BELIA GILMORE Rep #: [id number] : 1940 77 From: Sylvester Mendez DO PCP: ORN WARREN Status: DIS IN Y Location: [place] [address] Discharge Date and Diagnosis - Problem List [...] Hgb Hct WBC RBC Hgb Dr. Cosmo [facility]deras[facility] Operations: None Procedures: None Summary [...] is available. This note was generated with [employer] dictation software. It may contain incorrect words, [...] applicable Code Visit Inpatient E AND M: 16648 Disch Hosp 07/14/17 0654 <Electronically signed by Sylvester Mendez DO> Date Sylvester Langignles Signature (if applicable): Date CC: Jessica Mendez; RON WARREN Signed DISCHARGE INSTRUCTION Observed: 07/13/2017 Status: F Source: [place] 4:38 PM [facility] Medical Records Department [address] [place] [address] Instructions for Home/Discharge Instructions 07/13/17 1627 MR#: [id number] Acct: [id number] Name: BELIA GILMORE Rep #: [id number] : 1940 77 From: Sylvester Mendez DO [...] 7-10 days Proposed Discharge Date: 07/13/17 07/13/17 0948 <Electronically signed by Sylvester Mendez DO> Date M CTaylor Mendez DO CC: Cosmo Balderas MD; RON WARREN BEDSIDE GLUCOSE Collected: 07/13/2017 Status: F Source: [place] 4:07 PM [facility] TYPE CODE TESTS RESULT OUT OF REFERENCE UNITS RANGE LAB L501.080 70-110 mg/dL High BEDSIDE GLU 218 Result Comment: MANAGEMENT OF PATIENT CARE PER NURSING PROTOCOL Performed By: #### L501.080 #### [facility] Point of Care [address] [place] [address] BEDSIDE GLUCOSE Collected: 07/13/2017 Status: F Source: [place] 10:53 AM [facility] [place] TYPE CODE TESTS RESULT OUT OF REFERENCE UNITS RANGE LAB L501.080 70-110 mg/dL High BEDSIDE GLU 196 Result Comment: MANAGEMENT OF PATIENT CARE PER NURSING PROTOCOL Performed By: #### L501.080 #### [facility] Point of Care [address] [place] [address] BEDSIDE GLUCOSE Collected: 07/13/2017 Status: F Source: [place] 6:49 AM [facility] TYPE CODE TESTS RESULT OUT OF REFERENCE UNITS RANGE LAB L501.080 70-110 mg/dL High BEDSIDE GLU 168 Result Comment: MANAGEMENT OF PATIENT CARE PER NURSING PROTOCOL Performed By: #### L501.080 #### [facility] Point of Care [address] [place] [address] BEDSIDE GLUCOSE Collected: 07/12/2017 Status: F Source: [place] 9:54 PM [facility] TYPE CODE TESTS RESULT OUT OF REFERENCE UNITS RANGE LAB L501.080 70-110 mg/dL High BEDSIDE GLU 156 Result Comment: MANAGEMENT OF PATIENT CARE PER NURSING PROTOCOL Performed By: #### L501.080 #### [facility] Point of Care [address] [place] [address] BEDSIDE GLUCOSE Collected: 07/12/2017 Status: F Source: [place] 4:43 PM [facility] TYPE CODE TESTS RESULT OUT OF REFERENCE UNITS RANGE LAB L501.080 70-110 mg/dL High BEDSIDE GLU 178 Result Comment: MANAGEMENT OF PATIENT CARE PER NURSING PROTOCOL Performed By: #### L501.080 #### [facility] Point of Care [address] [facility] [place] [address] TROPONIN-I Collected: 07/12/2017 Status: F Source: [place] 1:10 PM [facility] Order Comment: 'TROP' Serial specimen #1, #2, #3, or #4: 4 TYPE CODE TESTS RESULT OUT OF RANGE REFERENCE UNITS LAB L501.4010 <0.06 ng/mL Normal < 0.02 TROPONIN-I Result Comment: TROPONIN-I EXPECTED VALUES <0.05 NEGATIVE 0.06 - 0.59 AT RISK OF ND > OR = 0.60 SUGGEST ND Performed By: #### L501.4010 #### [facility] [address] [facility] [place], [address] BEDSIDE GLUCOSE Collected: 07/12/2017 Status: F Source: [place] 11:34 AM [facility] TYPE CODE TESTS RESULT OUT OF REFERENCE UNITS RANGE LAB L501.080 70-110 mg/dL High BEDSIDE GLU 147 Result Comment: MANAGEMENT OF PATIENT CARE PER NURSING PROTOCOL Performed By: #### L501.080 #### [facility] Point of Care [address] [facility] [place], [place] [address] CONSULTATION Observed: 07/12/2017 Status: F Source: [place] 10:03 AM [facility] Medical Records Department [address] [place] [address] Consultation 07/12/17 0956 MR#: [id number] Acct: [id number] Name: BELIA GILMORE Rep #: [id number] : 1940 77 From: Cosmo Balderas MD PCP: RON WARREN Status: ADM IN Location: [place] [address] Problem List (1) PAF (paroxysmal atrial fibrillation) [...] healed. Patient suffered a mechanical fall in [place] approximately 1 years ago tripping over a [...] ulcer disease (Chronic) Psychiatric History: Anxiety, Depression ANTHROPOLOGY PROFESSOR History: No pertinent ANTHROPOLOGY PROFESSOR history - *Family History Maternal Family History: [...] with severe epilepsy who lived in a [place] and Smoking Status: Never smoker Review of [...] % (Auto) 49.7, Lymph % (Auto) 36.1, Esmeralda % (Auto) 10.8 H, Eos % (Auto) [...] AM. Code Visit Inpatient E AND M: 11314 Init Hosp L2 07/12/17 1003 <Electronically signed by Cosmo Balderas MD> Date Cosmo Balderas MD Cosigner Signature (if applicable): Date CC: Cosmo Balderas MD; OUT OF TOWN DOCTOR; RON WARREN Signed BEDSIDE GLUCOSE Collected: 07/12/2017 Status: F Source: [place] 6:48 AM [facility] TYPE CODE TESTS RESULT OUT OF RANGE REFERENCE UNITS LAB L501.080 70-110 mg/dL Normal BEDSIDE GLU 102 Result Comment: MANAGEMENT OF PATIENT CARE PER NURSING PROTOCOL Performed By: #### L501.080 #### [facility] Point [place] [address] CBC W/DIFF, AUTOMATED Collected: 07/12/2017 Status: F Source: [place] 6:46 AM [facility] TYPE CODE TESTS RESULT OUT OF [...] Lymph 0.97 Performed By: #### L100.0100 #### [facility] [address] [facility] [place], [place], [address] BASIC METABOLIC Collected: 07/12/2017 Status: F Source: [place] PROFILE (BMP) 6:46 AM [facility] TYPE CODE TESTS RESULT OUT OF [...] Performed By: #### L500.2500, L501.5200, L501.9520 #### [facility] [address] [facility] [place], [address] MAGNESIUM Collected: 07/12/2017 Status: F Source: [place] 6:46 AM [facility] TYPE CODE TESTS RESULT OUT OF RANGE REFERENCE UNITS LAB L501.5200 1.6-2.6 mg/dL Normal MG 1.9 Result Comment: Please note revised Magnesium reference range effective 2017. Performed By: #### L500.2500, L501.5200, L501.9520 #### [facility] [address] [place], [address] THYROID STIM HORMONE Collected: 07/12/2017 Status: F Source: [place] (TSH) 6:46 AM [facility] TYPE CODE TESTS RESULT OUT OF RANGE REFERENCE UNITS LAB L501.9520 0.358-3.74 uIU/mL Normal TSH 2.17 Performed By: #### L500.2500, L501.5200, L501.9520 #### [facility] [address] [place], [address] TROPONIN-I Collected: 07/12/2017 Status: F Source: [place] 2:33 AM [facility] Order Comment: 'TROP' Serial specimen #1, #2, #3, or #4: 2 TYPE CODE TESTS RESULT OUT OF RANGE REFERENCE UNITS LAB L501.4010 <0.06 ng/mL Normal < 0.02 TROPONIN-I Result Comment: TROPONIN-I EXPECTED VALUES <0.05 NEGATIVE 0.06 - 0.59 AT RISK OF ND > OR = 0.60 SUGGEST ND Performed By: #### L501.4010 #### [facility] [address] [place], [place], [address] TROPONIN-I Collected: 07/11/2017 Status: F Source: [place] 10:36 PM [facility] Order Comment: 'TROP' Serial specimen #1, #2, #3, or #4: 3 TYPE CODE TESTS RESULT OUT OF RANGE REFERENCE UNITS LAB L501.4010 <0.06 ng/mL Normal < 0.02 TROPONIN-I Result Comment: TROPONIN-I EXPECTED VALUES <0.05 NEGATIVE 0.06 - 0.59 AT RISK OF ND > OR = 0.60 SUGGEST ND Performed By: #### L501.4010 #### [facility] [address] [place], [address] HISTORY AND PHYSICAL Observed: 07/11/2017 Status: F Source: [place] EXAM 10:15 PM [facility] Medical Records Department [address] [place] [address] History and Physical 07/11/172144 MR#: [id number] Acct: [id number] Name: BELIA GILMORE Rep #: [id number] : 1940 77 From: Sharmaine Melendez MD PCP: RON WARREN Status: ADM IN Y Location: [place] [address] Problem List (1) PAF (paroxysmal atrial fibrillation) [...] PO QHS 10/17/14 Psychiatric History: Anxiety, Depression ANTHROPOLOGY PROFESSOR History: No pertinent ANTHROPOLOGY PROFESSOR history Smoking Status: Never smoker - *Family [...] with severe epilepsy who lived in a PA and Review of Systems Respiratory: Reports: Wheezing, [...] post op afib about 4 years ago [id number] score = 4 consider NOAC opinion cardiology (patient follows with Dr. Balderas) 3. elevated troponin , suspect 2/2 demand ischemia, no chest pain, NOS -- will cycle serial troponins 4. hypoKalemia -- will replete 3. hypothyroidism on replacement check TSH 4. HPL on statin 5. mood disorder - SSRI 6. RA on biologics, immunocompromised state DVT prophy -- SCDs, subQ heparin 07/11/17 4145 <Electronically signed by Sharmaine Melendez MD> Date Sharmaine Melendez MD Cosigner Signature: Date (if applicable) CC: Sharmaine Melendez MD; RON WARREN Signed CT ANGIOGRAPHY CHEST Observed: 07/11/2017 Status: F Source: BETTY W/CONTRAST 5:10 PM [facility] REPOSITORY ORIGINAL CT PULMONARY ANGIOGRAM WITH IV [...] PM TROP Collected: 07/11/2017 Status: F Source: [employer] 3:44 PM [facility] EMERGENCY DEPARTMENT REPOSITORY TYPE CODE TESTS RESULT OUT OF REFERENCE UNITS RANGE LAB TROP(LOINC) 0.00-0.30 ng/mL Troponin <0.30 Result Comment: Below measuring range >=0.30 Consistent with cardiac damage, increased clinical risk and possibility of myocardial infarction. Serial measurements, clinical history, appropriate symptoms and/or ECG changes may help assess possibility of ND. *Other non-acute coronary syndrome conditions such as CHF, myocarditis, pulmonary emboli, sepsis and cardiac surgery could result in myocardial damage and increased troponin levels. Performed By: #### TROP #### [address] [address] XR CHEST 1 VIEW Observed: 07/11/2017 Status: F Source: [employer] 1:57 PM [facility] EMERGENCY DEPARTMENT REPOSITORY ORIGINAL XR CHEST 1 VIEW PORTABLE [...] PM CBC Collected: 07/11/2017 Status: F Source: [employer] 1:31 PM [facility] EMERGENCY DEPARTMENT REPOSITORY TYPE CODE TESTS RESULT OUT OF [...] CBC, ADIFF, ANEU, PBNP, GFR, BMP #### [address] [address] .AUTO DIFF Collected: 07/11/2017 Status: F Source: [facility] 1:31 PM [facility] REPOSITORY TYPE CODE TESTS [...] CBC, ADIFF, ANEU, PBNP, GFR, BMP #### [address] [address] .NEUABS Collected: 07/11/2017 Status: F Source: [place] [employer] 1:31 [facility] REPOSITORY TYPE CODE TESTS RESULT OUT OF REFERENCE UNITS RANGE LAB ANEU(LOINC) 2.85-6.16 10 3/mcL Low Neutrophil, 1.70 Absolute Performed By: #### CBC, ADIFF, ANEU, PBNP, GFR, BMP #### [facility] [address] [place], [place] [address] PBNP Collected: 07/11/2017 Status: F Source: [facility] 1:31 [facility] REPOSITORY TYPE CODE TESTS RESULT OUT OF REFERENCE UNITS RANGE LAB PBNP(LOINC) 5.0-300.0 pg/mL High [facility]-Term[place] 382.8 proBNP Result Comment: In the presence of acute dyspnea, CHF likely if: Age <50 years: >450 pg/mL Age 50-75 years: >900 pg/mL Age >75 years: >1800 pg/mL Performed By: #### CBC, ADIFF, ANEU, PBNP, GFR, BMP #### [place] [address] [place], [place] [address] .GFR Collected: 07/11/2017 Status: F Source: [facility] 1:[address] [place] [address] REPOSITORY TYPE CODE TESTS RESULT OUT OF REFERENCE UNITS RANGE LAB GFRAA(LOINC ml/min/1.73 ) sqm GFR 66 Citizen Of [place] Result Comment: GFR Population mean for , [...] CBC, ADIFF, ANEU, PBNP, GFR, BMP #### [address] [place], [place] [address] BMP Collected: 07/11/2017 Status: F Source: [facility] 1:31 PM [facility] EMERGENCY DEPARTMENT REPOSITORY TYPE CODE TESTS RESULT OUT OF [...] CBC, ADIFF, ANEU, PBNP, GFR, BMP #### [address] [place], [place] [address] UA Collected: 07/11/2017 Status: F Source: [facility] 1:31 PM [facility] EMERGENCY DEPARTMENT REPOSITORY TYPE CODE TESTS RESULT OUT OF [...] NEGATIVE Performed By: #### UA, UAMICAO #### [facility] [address] [place], [place] [address] .URINALYSIS MICROSCOPIC Collected: 07/11/2017 Status: F Source: [facility]) 1:31 [facility] REPOSITORY TYPE CODE TESTS RESULT OUT OF REFERENCE UNITS RANGE LAB WBCUA(LOIN None Seen /hpf C) UA WBC None Seen LAB RBCUA(LOIN None Seen /hpf C) UA RBC None Seen LAB EPIUA(LOIN None Seen /hpf C) UA Squam Epithelial None Seen Performed By: #### UA, UAMICAO #### [facility] [address] [place] [address] Observed: 07/11/2017 Status: F Source: [facility] 1:31 [facility] REPOSITORY . MICRO - Microbiology PROCEDURE: Blood [...] Locations *1: This test was performed at: [facility], [address] [place] [address], [address] , [place] Performed By: #### CBL #### [place] [address] Observed: 07/11/2017 Status: F Source: [facility] 1:31 PM [facility] EMERGENCY DEPARTMENT REPOSITORY . MICRO - Microbiology PROCEDURE: Blood [...] Locations *1: This test was performed at: [address] Performed By: #### CBL #### [place] [address] Observed: 06/25/2017 Status: F Source: [facility] [employer] [facility] 11:18 AM [facility] EMERGENCY DEPARTMENT REPOSITORY . MICRO - Microbiology PROCEDURE: Urine [...] Locations *1: This test was performed at: [address] Performed By: #### CUR #### [facility] [address] [place] [address] .GFR Collected: 06/15/2017 Status: F Source: [facility] 10:26 AM [facility] EMERGENCY DEPARTMENT REPOSITORY TYPE CODE TESTS RESULT OUT OF REFERENCE UNITS RANGE LAB GFRAA(LOINC ml/min/1.73 ) sqm GFR 64 Citizen Of [place] Result Comment: GFR Population mean for , [...] CBC, ADIFF, ANEU, TSH, FT4 #### [place] [address] [place] [place], [place] [address] CMP Collected: 06/15/2017 Status: F Source: [facility] 10:26 AM [facility] EMERGENCY DEPARTMENT REPOSITORY TYPE CODE TESTS RESULT OUT OF [...] LIPID, CBC, ADIFF, ANEU, TSH, FT4 #### [address] [address] LIPID Collected: 06/15/2017 Status: F Source: [facility] 10:26 AM [facility] REPOSITORY TYPE CODE TESTS [...] LIPID, CBC, ADIFF, ANEU, TSH, FT4 #### [address] [place], [place] [address] CBC Collected: 06/15/2017 Status: F Source: [facility] 10:26 AM [facility] EMERGENCY DEPARTMENT REPOSITORY TYPE CODE TESTS RESULT OUT OF [...] LIPID, CBC, ADIFF, ANEU, TSH, FT4 #### [address] [place] [place], [place] [address] .AUTO DIFF Collected: 06/15/2017 Status: F Source: [facility] 10:26 AM [facility] EMERGENCY DEPARTMENT REPOSITORY TYPE CODE TESTS RESULT OUT OF [...] LIPID, CBC, ADIFF, ANEU, TSH, FT4 #### [address] [address] .NEUABS Collected: 06/15/2017 Status: F Source: [place] [employer] 10:26 AM [facility] EMERGENCY DEPARTMENT REPOSITORY TYPE CODE TESTS RESULT OUT OF REFERENCE UNITS RANGE LAB ANEU(LOINC) 2.85-6.16 10 3/mcL Low Neutrophil, 2.30 Absolute Performed By: #### GFR, CMP, LIPID, CBC, ADIFF, ANEU, TSH, FT4 #### [address] [address] TSH Collected: 06/15/2017 Status: F Source: [facility] 10:26 AM [facility] EMERGENCY DEPARTMENT REPOSITORY TYPE CODE TESTS RESULT OUT OF RANGE REFERENCE UNITS LAB TSH(LOINC) 0.27-4.20 mcIU/mL TSH 2.57 Performed By: #### GFR, CMP, LIPID, CBC, ADIFF, ANEU, TSH, FT4 #### [address] [address] FT4 Collected: 06/15/2017 Status: F Source: [facility] 10:26 AM [facility] EMERGENCY DEPARTMENT REPOSITORY TYPE CODE TESTS RESULT OUT OF RANGE REFERENCE UNITS LAB FT4(LOINC) 0.6-1.7 ng/mL Free T4 1.4 Performed By: #### GFR, CMP, LIPID, CBC, ADIFF, ANEU, TSH, FT4 #### [address] [address] [address] ELBOW W/O CONTRAST Observed: 06/13/2017 Status: F Source: [employer] LEFT 11:00 AM [facility] EMERGENCY DEPARTMENT REPOSITORY ORIGINAL CT left elbow without contrast [...] MINIMUM 3 Observed: 05/16/2017 Status: F Source: [employer] VIEWS LEFT 5:00 PM [facility]ATION REPOSITORY ORIGINAL [...] Status: F Source: [place] REPORT 2:12 PM [facility]. [address] [place] [address] OFFICE VISIT Date of Service: 05/16/17 MR#: [id number] Acct: [id number] Name: BELIA GILMORE Rep #: [id number] : 1940 Provider: Cosmo Balderas MD Age/Sex: 76/F Location: [facility] Status: Signed HPI HPI Chief Complaint: [...] She suffered a mechanical fall while in [place] tripping over a curb required 12 chanda in her r knee. Subsequent to that she has recovered and it is well healed. She reports occasional palpitations and mild bilateral trace lower extremity edema since initiating Cardizem therapy. In January 2017 the patient developed GI bleeding and was admitted [facility]. Patient had an upper and lower GI, [...] SEVERITY SOURCE 05/01/2018 Drug cephalexin Hives Unknown [place] Allergy/416 monohydrate/F0000 [facility] 006060([facility] 16614(RXNORM) [facility] ED CT) Repository 05/01/2018 Drug NSAIDS Unknown Unknown [place] Allergy/416 (Non-Steroidal [facility] 006545([facility] Anti-Inflamma/[address]) 0940896(RXNORM) Repository 05/01/2018 Drug Penicillins/F0010 Unknown Unknown [place] Allergy/416 08015(RXNORM) [facility] 643591([facility] ED CT) Repository 05/01/2018 Drug Sulfa Rash Unknown [place] Allergy/416 (Sulfonamide [facility] 418791([facility] Antibiotics)/F[address]) 746407(RXNORM) Repository 05/01/2018 Drug ethchlorvynol/F00 Unknown Unknown [place] Allergy/790 8895223(RXNORM) [facility] 454212([facility] ED CT) Repository 05/01/2018 Drug sulfamethoxazole/ Unknown Unknown [place] Allergy/416 B111186135(RXNORM [facility] 783964([facility] ED CT) Repository 05/01/2018 Drug trimethoprim/F006 Unknown Unknown [place] Allergy/416 686888(RXNORM) [facility] 485492([facility] ED CT) Repository ENCOUNTERS ENCOUNTERS ADMIT/DISCHARGE ACCOUNT NUMBER ADMITTING ENCOUNTER LOCATION SOURCE CLASS 05/01/2018 [id number] Ambulatory [facility] ding:WC Repository 03/23/2018 [id number] Ambulatory [facility] ding:CT Repository 03/23/2018/03/23/20 [id number] Ambulatory BMSBuilding: [place] 18 BMS.[facility] Repository 03/23/2018 [id number] Ambulatory [facility] ding:LAB Repository 03/21/2018/04/18/19 [id number] Mac Jaimes Inpatient [place] 19 Chi [facility] ding:TCURoom Repository : [id number]: 1 03/21/2018 [id number] Mac Jaimes Ambulatory BMSBuilding: [place] Chi BMS.CF.[facility] Repository 03/21/2018 [id number] Ambulatory BMSBuilding: [facility] Repository 03/20/2018 [id number] Ambulatory BMSBuilding: [facility] Repository 03/17/2018 [id number] Sylviaonis, Ambulatory BMSBuilding: [place] Nelson F BMS.[facility] Repository 03/17/2018 [id number] B[place]sonis, Ambulatory BMSBuilding: [place] Nelson F BMS..[facility] Repository 03/17/2018 [id number] [place], Ambulatory BMSBuilding: [place] Nelson F BMS.CF.[facility] Repository 03/17/2018 [id number] [place], Ambulatory BMSBuilding: [place] Nelson F BMS.CF.[facility] Repository 03/17/2018/03/21/20 [id number] [place], Inpatient [place] 18 Nelson F Encounter [facility] ding:RY4Mdvo Repository : MI189Vrw: 1 03/17/2018 [id number] [place], Ambulatory BMSBuilding: [place] Nelson F BMS.[facility] Repository 03/17/2018 [id number] [place], Ambulatory BMSBuilding: [place] Nelson F BMS.[facility] Repository 03/17/2018 [id number] [place]sonis, Ambulatory BMSBuilding: [place] Nelson Watts BMS.[facility] Repository 03/17/2018 [id number] Kotsonis, Ambulatory BMSBuilding: [place] Nelson Watts BMS.[facility] Repository 03/16/2018 [id number] Ambulatory BBuilding:PH [facility] Repository 03/07/2018/03/10/20 [id number] Ambulatory [place] 18 [facility] ding:LAB Repository 01/27/2018/01/28/20 [id number] Ambulatory BMSBuilding: [place] 18 BMS.[facility] Repository 01/19/2018/01/20/20 [id number] Amb[place] [address] [place] [address] ding:LAB Repository 01/06/2018/01/07/20 [id number] Ambulatory Dhara [place] [address] [place] [address] ding:LAB Repository 12/06/2017/12/07/19 [id number] Ambulatory Dh[place] [address] [place] [address] ding:LAB Repository 12/05/2017 [id number] Ambulatory BMSBuilding: [place] BMS.[facility] Repository 11/08/2017/11/13/19 [id number] Ambulatory [address] ng:Arthritis [facility] Repository 11/07/2017/11/08/19 [id number] Ambulatory [place] [address] [place] [address] ding:LAB Repository 10/03/2017/10/04/19 [id number] Ambulatory [place] [address] [place] [address] ding:LAB Repository 09/26/2017 [id number] Ambulatory BMSBuilding: [place] BMS.[facility] Repository 09/14/2017/09/19/19 [id number] Ambulatory [address] ding:[facility] Repository 09/13/2017 [id number] Ambulatory Dhara [facility] ding:[facility]S Repository 09/13/2017 [id number] Ambulatory BMSBuilding: [place] Man [facility] Repository 09/07/2017/09/08/19 [id number] Ambulatory [place] [address] [place] [address] ding:LAB Repository 09/02/2017 [id number] Ambulatory [facility] ding:[facility] Repository 09/02/2017 [id number] Ambulatory BMSBuilding: [facility] Repository 08/26/2017/08/27/19 [id number] Ambulatory BMSBuilding: [place] 18 BMS.[facility] Repository 08/26/2017 [id number] Ambulatory BMSBuilding: [place] BMS.[facility] Repository 08/22/2017 [id number] Ambulatory [facility] ding:LAB Repository 08/02/2017/08/03/19 [id number] Ambulatory [address] ding:LAB Repository 07/21/2017 [id number] Ambulatory [facility] ding:LAB.FUT Repository URE 07/15/2017 [id number] Ambulatory [facility] ding:CVS Repository 07/15/2017 [id number] Ambulatory BMSBuilding: [place] Man [facility] Repository 07/11/2017/07/14/19 [id number] Romie, Inpatient Dhara [place] 18 [facility] ding:PCURoom Repository : [id number]: 1 07/11/2017 [id number] Romie, Ambulatory BMSBuilding: [place] Sharmaine BMS.[facility] Repository 07/11/2017 [id number] Romie, Ambulatory BMSBuilding: [place] Sharmaine BMS.CF.[facility] Repository 07/11/2017 [id number] Romie, Ambulatory BMSBuilding: [place] Sahrmaine BMS.[facility] Repository 07/11/2017 [id number] Romie, Ambulatory BMSBuilding: [place] Sharmaine BMS.[facility] Repository 07/11/2017/07/14/19 [id number] Ambulatory BMSBuilding: [place] [address] [place] [address] Repository 07/11/2017/07/12/19 [id number] Emergency BBuilding:[address] Repository 06/25/2017/06/30/19 [id number] Ambulatory [address] ding:[facility] Repository 06/15/2017/06/20/19 [id number] Ambulatory [address] ding:DROP [facility] Repository 06/13/2017/06/14/19 [id number] Ambulatory [address] ding:RAD [facility] Repository 05/16/2017/05/16/19 [id number] Emergency BBuilding:ER [address] Repository 05/16/2017/05/16/19 [id number] Ambulatory BMSBuilding: [place] 18 BMS.[facility] Repository 05/16/2017 [id number] Ambulatory BMSBuilding: [place] BMS.[facility] Repository PAYERS PAYERS ENCOUNTER GUARANTOR PAYER SUBSCRIBER SOURCE 05/01/2018 BELIA S Primary BELIA S [place] [id number] Insurance:JOHN OLSENDOB: [facility] [id number] Hospital 12[address]Zbk: 330) [facility] Number: Repository [phone] () [id number] Date:9279-37-67PL [facility] [address] [address]IR: 05/01/2018 Secondary NOT GIVENUNK [place] Insurance:SELF PAY [facility] Number: Effective Repository Date:2018-04-14 03/23/2018 BELIA S Primary BELIA S [place] [id number] Insurance:JOHN OLSENDOB: [facility] [id number] Hospital [address]Dfx: (330) [facility] Number: Repository [phone] () [id number] Date:0113-42-25HA [address], [place] [address]WB: 03/23/2018 Secondary NOT GIVENUNK [place] Insurance:SELF PAY [facility] Number: Effective Repository Date:2018-03-23 03/23/2018 BELIA S Primary BELIA S [place] [id number] Insurance:JOHN OLSENDOB: [facility] [id number] Hospital [address]Bby: (330) [facility] Number: Repository [phone] () [id number] Date:5343-64-29ET [facility] [address] [place] [address]ZT: 03/23/2018 Secondary NOT GIVENUNK [place] Insurance:SELF PAY [facility] Number: Effective Repository Date:2018-03-23 03/23/2018 BELIA S Primary BELIA S [place] [id number] Insurance:JOHN OLSENDOB: [facility] [id number] Hospital [address]Otm: (330) [facility] Number: Repository [phone] () [id number] Date:5280-07-28VQ [address] [place] [address]DB: 03/23/2018 Secondary NOT GIVENUNK [place] Insurance:SELF PAY [facility] Number: Effective Repository Date:2018-03-13 03/21/2018 BELIA S Primary BELIA S [place] [id number] Insurance:JOHN OLSENDOB: [facility] [id number] Hospital [address]Aoi: (330) [facility] Number: Repository [phone] () [id number] Date:4037-21-66KB [facility] [address] [place] [address]NE: 03/21/2018 Secondary NOT GIVENUNK [place] Insurance:SELF PAY [facility] Number: Effective Repository Date:2018-03-21 03/21/2018 BELIA S Primary BELIA S [place] [id number] Insurance:JOHN OLSENDOB: [facility] [id number] Hospital [address]Jkc: (330) [facility] Number: Repository [phone] () [id number] Date:1243-15-96RB [facility] [address] [address]TQ: 03/21/2018 Secondary NOT GIVENUNK [place] Insurance:SELF PAY [facility] Hospital Number: Effective Repository Date:2018-03-21 03/21/2018 BELIA S Primary BELIA S [place] [id number] Insurance:JOHN OLSENDOB: [facility] [id number] Hospital [address]Mrt: (330) [facility] [phone] () [id number] Date:2678-75-84IC [address] [place] [address]OD: 03/21/2018 Secondary NOT GIVENUNK [place] Insurance:SELF PAY [facility] Number: Effective Repository Date:2018-03-21 03/20/2018 BELIA S Primary BELIA S [place] [id number] Insurance:JOHN OLSENDOB: [facility] [id number] Hospital [address]Pfd: (330) [facility] Repository [phone] () [id number] Date:0954-27-62AQ [facility] [address] [place] [address]YW: 03/20/2018 Secondary NOT GIVENUNK [place] Insurance:SELF PAY [facility] Number: Effective Repository Date:2018-03-20 03/17/2018 BELIA S Primary BELIA S [place] [id number] Insurance:JOHN OLSENDOB: [facility] [id number] Hospital [address]Fnp: (330) [facility]: Repository [phone] () [id number] Date:4437-42-52AQ [address] [place] [phone]: 03/17/2018 Secondary NOT GIVENUNK [place] Insurance:SELF PAY [facility] Number: Effective Repository Date:2018-03-17 03/17/2018 BELIA S Primary BELIA S [place] [id number] Insurance:JOHN OLSENDOB: [facility] [id number] Hospital [address]Vjb: (330) [facility]: Repository [phone] () [id number] Date:4529-30-76PH [address] [address]EV: 03/17/2018 Secondary NOT GIVENUNK [place] Insurance:SELF PAY [facility] Hospital Number: Effective Repository Date:2018-03-17 03/17/2018 BELIA S Primary BELIA S [place] [id number] Insurance:JOHN OLSENDOB: [facility] [id number] Hospital [address]New: (330) [facility]: Repository [phone] () [id number] Date:9360-37-29SH [facility] [address] [place] [address]MQ: 03/17/2018 Secondary NOT GIVENUNK [place] Insurance:SELF PAY [facility] Hospital Number: Effective Repository Date:2018-03-17 03/17/2018 BELIA S Primary BELIA S [place] [id number] Insurance:JOHN OLSENDOB: [facility] [id number] Hospital [address]Eel: (330) [facility]: Repository [phone] () [id number] Date:1808-18-81IB [facility] [address] [place] [address]PS: 03/17/2018 Secondary NOT GIVENUNK [place] Insurance:SELF PAY [facility] Hospital Number: Effective Repository Date:2018-03-17 03/17/2018 BELIA S Primary BELIA S [place] [id number] Insurance:JOHN OLSENDOB: [facility] [id number] Hospital [address]Eis: (330) [facility]: Repository [phone] () [id number] Date:6493-15-63GM [facility] [address] [address]OZ: 03/17/2018 Secondary NOT GIVENUNK [place] Insurance:SELF PAY [facility] Hospital Number: Effective Repository Date:2018-03-17 03/17/2018 BELIA S Primary BELIA S [place] [id number] Insurance:JOHN OLSENDOB: [facility] [id number] Hospital [address]40[address]Rxk: (330) [facility]: Repository [phone] () [id number] Date:3979-80-25VP [address] [address]FW: 03/17/2018 Secondary NOT GIVENUNK [place] Insurance:SELF PAY [facility] Hospital Number: Effective Repository Date:2018-03-17 03/17/2018 BELIA S Primary BELIA S [place] [id number] Insurance:JOHN OLSENDOB: [facility] [id number] Hospital [address]Pso: (330) [facility]: Repository [phone] () [id number] Date:9906-47-69MM [address] [address]KF: 03/17/2018 Secondary NOT GIVENUNK [place] Insurance:SELF PAY [facility] Number: Effective Repository Date:2018-03-17 03/17/2018 BELIA S Primary BELIA S [place] [id number] Insurance:JOHN OLSENDOB: [facility] [id number] Hospital [address]Mtq: (330) [facility] [phone] () [id number] Date:7012-27-72QY [address] [address]CH: 03/17/2018 Secondary NOT GIVENUNK [place] Insurance:SELF PAY [facility] Hospital Number: Effective Repository Date:2018-03-17 03/17/2018 BELIA S Primary BELIA S [place] [id number] Insurance:JOHN OLSENDOB: [facility] [id number] Hospital [address]Vym: (330) [facility]: Repository [phone] () [id number] Date:8867-01-53OV [address] [address]GM: 03/17/2018 Secondary NOT GIVENUNK [place] Insurance:SELF PAY [facility] [facility] Number: Effective Repository Date:2018-03-17 03/16/2018 BELIA S Primary BELIA [facility] OLSENDOB: Insurance:PRIME TIME OLSENDOB: Foundation E HEALTH (DIOR)Policy [id number] Repository [address] [place], Number: E [place] [id number] [place] [address]Wro: [id number] Date:2018-03-16 JENNIFERPERLA.[facility] 0787-65-94Rtnz ()Tel: ([phone]) : Name:[address] () ()Tel: (062) [place], [place] [phone] () [address]LN: 03/07/2018 BELIA S Primary BELIA S [place] [id number] [address] MA[address] Insurance:JOHN OLSENDOB: [facility] [id number] Hospital [address]447Bga: 330 [facility] Number: Repository [phone] () [id number] Date:0456-77-48BB [address] [address]LU: 03/07/2018 Secondary NOT GIVENUNK [place] Insurance:SELF PAY [facility] Number: Effective Repository Date:2018-02-09 01/27/2018 BELIA S Primary BELIA S [place] [id number] [address] MA[address] Insurance:JOHN OLSENDOB: [facility] [id number] [facility] [address]Rod: 330) [facility] Number: Repository [phone] () [id number] Date:2931-58-42QR [address] [address]OG: 01/27/2018 Secondary NOT GIVENUNK [place] Insurance:SELF PAY [facility] Hospital Number: Effective Repository Date:2017-10-11 01/19/2018 BELIA S Primary BELIA S [place] [id number] [address] MA[address] Insurance:JOHN OLSENDOB: [facility] [id number] Hospital 99406Qys: (330) [facility] Number: Repository [phone] () [id number] Date:4393-99-10SU [address] [place] [address]IQ: 01/19/2018 Secondary NOT GIVENUNK [place] Insurance:SELF PAY [facility] Number: Effective Repository Date:2018-01-11 01/06/2018 BELIA S Primary BELAI S [place] [id number] [address] Insurance:JOHN OLSENDOB: [facility] [id number] Hospital 80[address]Dhd: (330) [facility] Number: Repository [phone] () [id number] Date:6086-01-81BF [address] [place], [place] [address]WP: 01/06/2018 Secondary NOT GIVENUNK [place] Insurance:SELF PAY [facility] Number: Effective Repository Date:2017-12-13 12/06/2017 BELIA S Primary BELIA S [place] [id number] [address] Insurance:JOHN OLSENDOB: [facility] [id number] Hospital 30977Vfc: (330) [facility] Number: Repository [phone] () [id number] Date:1388-27-20NS [facility] [address] [address]LB: 12/06/2017 Secondary NOT GIVENUNK [place] Insurance:SELF PAY [facility] Hospital Number: Effective Repository Date:2017-11-10 12/05/2017 BELIA S Primary BELIA S Dhara [id number] [address] Insurance:JOHN OLSENDOB: [facility] [id number] Hospital [address]Iyh: [facility] Number: Repository [phone] [id number] () Date:8199-46-82QF [address] [place] [address]GM: 12/05/2017 Secondary NOT GIVENUNK [place] Insurance:SELF PAY [facility] Number: Effective Repository Date:2017-05-16 11/08/2017 BELIA S Primary [facility] S [facility]: Insurance:PRIME TIME OLSENDOB: [facility] E HEALTH (DIOR)Policy [id number] Repository [address] [place], Number: E [place] [place] [id number] [place] [address]Hgr: [id number] Date:2017-11-08 - DORA.[facility] 7148-24-68Ttbm ()Tel: (618) : Name:Joel LEÓN 000-0000 () ()Tel: [phone]) [place], [place] [phone] () [address]OD: 11/07/2017 BELIA S Primary BELIA S [place] [id number] [address] Insurance:JOHN OLSENDOB: [facility] [id number] Hospital 45637Kcp: (414) HMOPolicy Number: Repository [phone] () [id number] Date:5781-23-05DZ [address] [address]EL: 11/07/2017 Secondary NOT GIVENUNK [place] Insurance:SELF PAY [facility] Number: Effective Repository Date:2017-10-07 10/03/2017 BELIA S Primary BELIA S [place] [id number] [address] Insurance:JOHN OLSENDOB: [facility] [id number] Hospital [address]Enj: 330) HMOPolicy Number: Repository [phone] () [id number] Date:3076-63-17AY [address] [address]BV: 10/03/2017 Secondary NOT GIVENUNK [place] Insurance:SELF PAY [facility] Number: Effective Repository Date:2017-09-08 09/26/2017 BELIA S Primary BELIA S [place] [id number] [address] Insurance:JOHN OLSENDOB: [facility] [id number] [facility] [address]Xql: HMOPolicy Number: Repository [phone] [id number] () Date:8211-70-73SX [address] [address]NO: 09/26/2017 Secondary NOT GIVENUNK [place] Insurance:SELF PAY [facility] Number: Effective Repository Date:2017-09-26 09/14/2017 BELIA Phillips [facility] BELIA Phillips [facility] OLSENDOB: Insurance:PRIME TIME OLSENDOB: [facility] E HEALTH (DIOR)Policy [id number] Repository MAIN [facility], Number: E MAIN [place], [place] [id number] [place] [address]Pun: [id number] Date:2017-09-14 - [facility] 0575-26-42Cypb ()Tel: ([phone]) : Name:JULIANA LEÓN 000-0000 () ()Tel: [phone]) 3533[place], [place] [phone] () [address]TZ: 09/13/2017 BELIA S Primary BELIA Jules [id number] [address] MA[address] Insurance:JOHN OLSENDOB: [facility] [id number] Hospital [address]602Nmf: 330 HMOPolicy Number: Repository [phone] () [id number] Date:7855-82-43GB [address] [address]TX: 09/13/2017 Secondary NOT GIVENUNK [place] Insurance:SELF PAY [facility] Number: Effective Repository Date:2017-08-26 09/13/2017 BELIA S Primary BELIA S [place] [id number] [address] Insurance:JOHN OLSENDOB: [facility] [id number] Hospital 18628Krh: (330) [facility] [phone] () [id number] Date:9459-64-82JE [facility] [address], [place] [address]PO: 09/13/2017 Secondary NOT GIVENUNK [place] Insurance:SELF PAY [facility] Hospital Number: Effective Repository Date:2017-09-13 09/07/2017 BELIA S Primary BELIA S [place] [id number] [address] MA[address] Insurance:JOHN OLSENDOB: [facility] [id number] Hospital 00635Hmh: [facility] Repository [phone] [id number] () Date:7608-46-21VL [address], [place] [address]NV: 09/07/2017 Secondary NOT GIVENUNK [place] Insurance:SELF PAY [facility] Hospital Number: Effective Repository Date:2017-08-09 09/02/2017 BELIA S Primary BELIA S [place] [id number] [address] Insurance:JOHN OLSENDOB: [facility] [id number] Hospital 21536Ghk: [facility] Repository [phone] [id number] () Date:4440-66-13JU [address], [place] [address]GG: 09/02/2017 Secondary NOT GIVENUNK [place] Insurance:SELF PAY [facility] Hospital Number: Effective Repository Date:2017-08-26 09/02/2017 BELIA S Primary BELIA S Dh[place] [id number] [address] Insurance:JOHN OLSENDOB: [facility] [id number] Hospital 27796Fuz: (330) [facility]: Repository [phone] () [id number] Date:9288-93-35TD [address], [place] [address]PE: 09/02/2017 Secondary NOT GIVENUNK [place] Insurance:SELF PAY [facility] Number: Effective Repository Date:2017-09-02 08/26/2017 BELIA S Primary BELIA S [place] [id number] [address] Insurance:JOHN OLSENDOB: [facility] [id number] Hospital 14033Jmn: [facility] Number: Repository [phone] [id number] () Date:9871-12-79VF [facility] [address] [place] [address]WI: 08/26/2017 Secondary NOT GIVENUNK [place] Insurance:SELF PAY [facility] Number: Effective Repository Date:2017-08-26 08/26/2017 BELIA S Primary BELIA S [place] [id number] [address] Insurance:JOHN OLSENDOB: [facility] [id number] Hospital 19277Drc: [facility] Number: Repository [phone] [id number] -4 () Date:8147-86-76SM [facility] [address] [place] [address]KF: 08/26/2017 Secondary NOT GIVENUNK [place] Insurance:SELF PAY [facility] Number: Effective Repository Date:2017-08-26 08/22/2017 BELIA S Primary BELIA S [place] [id number] [address] Insurance:JOHN OLSENDOB: [facility] [id number] Hospital 41678Oxb: [facility] Number: Repository [phone] [id number] (HP) Date:7033-69-06MQ [address], [place] [address]SZ: 08/22/2017 Secondary NOT GIVENUNK [place] Insurance:SELF PAY [facility] Hospital Number: Effective Repository Date:2017-08-22 08/02/2017 BELIA S Primary BELIA S [place] [id number] Insurance:JOHN OLSENDOB: [facility] [id number] Hospital 43565Bxh: [facility]ository [phone] [id number] (HP) Date:6248-11-59MG [address], [place] [address]TL: 08/02/2017 Secondary NOT GIVENUNK [place] Insurance:SELF PAY [facility] Number: Effective Repository Date:2017-07-25 07/21/2017 BELIA S Primary BELIA S [place] [id number] [address]IN Insurance:JOHN OLSENDOB: [facility] [id number] Hospital 89455Rmq: [facility] Number[facility] Repository [phone] [id number] (HP) Date:6382-85-60AM [facility] [address], [place] [address]GH: 07/21/2017 Secondary NOT GIVENUNK [place] Insurance:SELF PAY [facility] Number: Effective Repository Date:2017-07-19 07/15/2017 BELIA S Primary NOT GIVENUNK [place] [id number] E MAIN Insurance:SELF PAY [facility] 12571Gyk: Number: Effective Repository [phone] Date:2017-07-14 () 07/15/2017 BELIA S Primary BELIA S [place] [id number] [address] MA[address] Insurance:JOHN OLSENDOB: [facility] [id number] Hospital 63010Fga: (330) [facility] Number: Repository [phone] () [id number] Date:4590-65-13NG [facility] [address], [place] [address]RD: 07/15/2017 Secondary NOT GIVENUNK [place] Insurance:SELF PAY [facility] Number: Effective Repository Date:2017-07-15 07/11/2017 BELIA S Primary BELIA S [place] [id number] [address] MA[address] Insurance:JOHN OLSENDOB: [facility] [id number] Hospital 49732Fcg: [facility] Number: Repository [phone] [id number] (HP) Date:5018-15-05UF [facility] [address] [place] [address]MH: 07/11/2017 Secondary NOT GIVENUNK [place] Insurance:SELF PAY [facility] Hospital Number: Effective Repository Date:2017-07-11 07/11/2017 BELIA S Primary BELIA S [place] [id number] [address] Insurance:JOHN OLSENDOB: [facility] [id number] Hospital 17766Mdv: [facility] Number: Repository [phone] [id number] (HP) Date:9070-22-94HG [facility] [address] [place] [address]RZ: 07/11/2017 Secondary NOT GIVENUNK [place] Insurance:SELF PAY [facility] Number: Effective Repository Date:2017-07-11 07/11/2017 BELIA S Primary BELIA S [place] [id number] [address] Insurance:JOHN OLSENDOB: [facility] [id number] Hospital 56786Viv: (330) [facility] Number: Repository [phone] () [id number] Date:1065-97-69JH [address] [address]RP: 07/11/2017 Secondary NOT GIVENUNK [place] Insurance:SELF PAY [facility] Number: Effective Repository Date:2017-07-11 07/11/2017 BELIA S Primary BELIA S [place] [id number] Insurance:JOHN OLSENDOB: [facility] [id number] Hospital 664[address]Cdy: [facility] Number: Repository [phone] [id number] (HP) Date:8067-87-32KS [address], [place] [address]DQ: 07/11/2017 Secondary NOT GIVENUNK [place] Insurance:SELF PAY [facility] Number: Effective Repository Date:2017-07-11 07/11/2017 BELIA S Primary BELIA S [place] [id number] [address] MA[address] Insurance:JOHN OLSENDOB: [facility] [id number] Hospital 75082Vag: [facility] Number: Repository [phone] [id number] -4 () Date:1469-11-94RC [facility] [address], [place] [address]JD: 07/11/2017 Secondary NOT GIVENUNK [place] Insurance:SELF PAY [facility] Number: Effective Repository Date:2017-07-11 07/11/2017 BELIA S Primary BELIA S [place] [id number] E MAIN Insurance:JOHN OLSENDOB: [facility] [id number] Hospital [address]8762Fmb: [facility] Number: Repository [phone] [id number] -4 () Date:1531-61-45VD [address] [address]EE: 07/11/2017 Secondary NOT GIVENUNK [place] Insurance:SELF PAY [facility] Number: Effective Repository Date:2017-07-11 07/11/2017 BELIA S Primary BELIA S [facility] OLSENDOB: Insurance:PRIME TIME OLSENDOB: [facility] E HEALTH (DIOR)Policy [id number] Repository [address] [place], Number: E MAIN [place], [place] [id number] [place] [address]Sdp: [id number] Date:2017-07-11 - CORKYTel 5457-04-64Rwqu ()Tel: (232) : Name:JULIANA LEÓN 000-0000 (WP) (HP)Tel: (555) [address], [place] [address] (WP) [address]ZN: 06/25/2017 [facility] OLSENDOB: Insurance:PRIME TIME OLSENDOB: [facility] E HEALTH (DIOR)Policy [id number] Repository [address] [place], Number: [place] [id number] [place] [address]Ngx: [id number] Date:2017-06-25 - [facility].NETTel 4039-46-50Edwo (HP)Tel: (000) : Name:JULIANA LEÓN 000-0000 (WP) (HP)Tel: (313) [address]85[place], [place] [address] (WP) [address]EF: 06/15/2017 [facility] OLSENDOB: Insurance:PRIME TIME OLSENDOB: [facility] E HEALTH (DIOR)Policy [id number] Repository [address] [place], Number: [place] [id number] [place] [address]Prw: [id number]@ZOO Date:2017-06-15 - [facility] CENTERENDER.NETTel 9272-01-50Lcvk (HP)Tel: (000) : Name:JULIANA LEÓN 000-0000 (WP) (HP)Tel: (690) [address]15[place], [place] [address] (WP) [address]KT: 06/13/2017 [facility] OLSENDOB: Insurance:PRIME TIME OLSENDOB: [facility] E HEALTH (DIOR)Policy [id number] Repository [address] [place], Number: [place] [id number] [place] [address]Aeb: [id number] Date:2017-06-10 - [facility] 4033-03-85Mkun ()Tel: 000) : Name:JULIANA LEÓN 000-0000 (WP) (HP)Tel: (002) [address]345[place], [place] [address] (WP) [address]PV: 05/16/2017 BELIA S Primary BELIA S [facility] OLSENDOB: Insurance:PRIME TIME OLSENDOB: [facility] E HEALTH (DIOR)Policy [id number] Repository [address] [place], Number: E [place] [place], [place] [id number] [place] [address]Nnv: [id number] Date:2017-05-16 - [facility] 5926-55-53Bccq ()Tel: (000) : Name:JULIANA LEÓN 000-0000 (WP) (HP)Tel: [phone]) [address], [place] [phone] (WP) [address]DP: 05/16/2017 BELIA [id number] Primary BELIA Dhara [address] [place], Insurance:JOHN OLSENDOB: [place] [address]Uim: [facility] [id number] [facility] Number: Repository () [id number] Date:1286-56-36NL [address], [place] [address]ZH: 05/16/2017 Secondary NOT GIVENUNK [place] Insurance:SELF PAY [facility] Number: Effective Repository Date:2017-03-15 05/16/2017 Belia [id number] Primary Belia [place] [address], Insurance:JOHN OlsenDOB: [place] [address]Ggf: [facility] [id number] Hospital [facility] Number: Repository () [id number] Date:4327-02-97RI [address], [place] [address]CH: 05/16/2017 Secondary NOT GIVENUNK [place] Insurance:SELF PAY [facility] Number: Effective Repository Date:2017-05-16
== END 2018-05-11 23:59 ==
LOC: WC 09:24
PROVIDERS: Family Provider Family Medicine; PCP Family Medicine; Visit Provider Surgery
DX: S30.0XXA Contusion of lower back and pelvis, initial encounter (principal); W10.9XXA Fall (on) (from) unspecified stairs and steps, initial encounter
CPT/HCPCS: 11042

== ENCOUNTER 2018-05-29 10:45 | Outpatient (RCR) | payer MEDICARE, SELFPAY ==
[2018-05-12 01:40] VITALS: BP 150/69; PULSE 64; RESP 16; TEMP 36.6
[2018-05-15 10:58] VITALS: BP 118/70; PULSE 66; RESP 18; TEMP 36.6; BMI 31.2
--- NOTE | 2018-05-15 11:47 | PN.PCM_ITS ---
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 History of Wound: Surgery 03/20/18 - Surgical preparation right gluteal and proximal posterior thigh area with incision and drainage and evacuation and excisional debridement traumatic submuscular hematoma with extension to ischial bone and onto proximal posterior thigh (180 cm2). Wound care - VAC discontinued and aquacel silver dressing changes started. Operative culture - None. Prealbumin from 03/20/18 was 25.2. Encouraged nutritional supplementation with protein to help the healing process. Patient denies fever. Patient's appetite is ok. Progress of Wound: Improved. - Physical Exam Vital Signs Temp Pulse Resp BP 98 F 66 18 118/70 05/15/18 10:58 05/15/18 10:58 05/15/18 10:58 05/15/18 10:58 General: Alert, Oriented x3, Cooperative HEENT: Atraumatic Oral: Moist Mucosa Lungs: Normal air movement Cardiovascular: Regular rate Extremities: No edema, Capillary Refill Less than 3 Seconds Skin: Ulcer/ Wound - wound of right lower buttocks Wound Measurements and Assessment WC - Nurse 1 - General Ulcer Measurement Start: 05/15/18 10:58 Freq: Status: Active Protocol: Activity Type Activity Date Activity User E-Sign Co-Sign Detail Recorded Client Recorded Date Recorded By Document 05/15/18 10:58 [id number] 05/15/18 11:02 05/15/18 10:58 Wound Center Nurse 1 [Ulcer Assessment] #2 RIGHT BUTTOCK -Combined with other wound No -Current Size (cm) - Length 3.2 -Current Size (cm) - Width 0.8 -Current Size (cm) - Depth 0.1 -Total Square Cm 2.56 -Photo Taken Yes -Epithelialization Medium 34-66% -Tunneling No -Undermining/Tunneling No -Circular Undermining No -Exudate Amt Small -Exudate Type Serosanguineous -Wound Margin Distinct, Outline Attached -Granulation Amt Large (67-100%) -Granulation Quality [place] Red -Slough/Fibrin Yes -Necrosis Amt Small (1-33%) -Necrotic Tissue Type Adherent Slough -Structure Exposed N/A -Texture (Beth-wound Skin Appearance) Assessed Scarring -Moisture (Beth-wound Skin Appearance Assessed ) -Color (Beth-wound Skin Appearance) Assessed -Temperature (Beth-wound Skin No Abnormality Appearance) (Pt Warm) -Tenderness on Palpation (Beth-wound No Skin Appearance) -Ulcer Cleansing Rinsed/ Irrigated with Saline -Foul Odor after Cleansing No -Anesthetic Used 4% Lidocaine Solution Musculoskeletal: No Tenderness to Palpation of Joints or Extremities Neurological: Neuro grossly intact Psych/Mental Status: Normal Affect, Appropriate Debridement Note Wound debrided: Right lower buttocks Type of Debridement: Excisional debridement Anesthesia Used: 4% Lidocaine Solution Depth: Down to and including healthy tissue, in the subcutaneous layer Percentage of wound debrided: 100 Instrument Used: 3mm curette Tissue Removed: subcutaneous tissue and slough Severity: Fat Layer Exposed Amount of bleeding with debridement: Mild Bleeding Controlled with: Pressure Patient tolerated procedure well Assessment/Plan Active Problems (Last Updated 03/21/18 @ 22:18 by Gage Dudley MD) Open wound of right buttock with complication (Acute) assisted current use of anticoagulant (Chronic) Assessment: 1. Nonhealing hematoma ulcer right gluteal alrea. 2. Late effect traumatic submuscular hematoma right gluteal area with extension to ischial bone and onto proximal posterior thigh. 3. Fall from stairs. 4. assisted use of anticoagulation. 5. s/p surgical preparation right gluteal and proximal posterior thigh area with incision and drainage and evacuation and excisional debridement traumatic submuscular hematoma with extension to ischial bone and onto proximal posterior thigh (180 cm2). Plan: The ulcer is healing well and is very superficial. Will stop aquacel Silver dressing changes and start jorge dressing changes daily. Prealbumin from 03/20/18 was 25.2. Encourage nutritional supplementation with protein to help the healing process. Followup 2 weeks. Code Visit [id number]
[2018-05-29 11:05] VITALS: BP 140/76; PULSE 73; RESP 18; TEMP 36.6; BMI 31.2
--- NOTE | 2018-05-29 17:33 | PCM.WC.PN ---
Type of Wound Date of Service: 05/29/18 Chief Complaint: Nonhealing hematoma ulcer right gluteal area. History of Wound: Surgery 03/20/18 - Surgical preparation right gluteal and proximal posterior thigh area with incision and drainage and evacuation and excisional debridement traumatic submuscular hematoma with extension to ischial bone and onto proximal posterior thigh (180 cm2). Wound care - Radha. Operative culture - None. Prealbumin from 03/20/18 was 25.2. Encouraged nutritional supplementation with protein to help the healing process. Patient denies fever. Patient's appetite is ok. Progress of Wound: Healed. - Physical Exam Vital Signs Temp Pulse Resp BP 97.8 F 73 18 140/76 H 05/29/18 11:05 05/29/18 11:05 05/29/18 11:05 05/29/18 11:05 General: Alert, Oriented x3 HEENT: PERRLA, EOMI Neck: Supple Lungs: Clear to auscultation Cardiovascular: Regular rate, Regular Rhythm Abdomen: Soft, Non-Distended Skin: Ulcer/ Wound - right gluteal hematoma ulcer has healed. Wound Measurements and Assessment WC - Nurse 1 - General Ulcer Measurement Start: 05/15/18 10:58 Freq: Status: Active Protocol: Activity Type Activity Date Activity User E-Sign Co-Sign Detail Recorded Client Recorded Date Recorded By Document 05/29/18 11:05 [id number] 05/29/18 11:13 DL 05/29/18 11:05 Wound Center Nurse 1 [Ulcer Assessment] #2 RIGHT BUTTOCK -Current Size (cm) - Length 0 -Current Size (cm) - Width 0 -Current Size (cm) - Depth 0 -Total Square Cm 0 -Photo Taken Yes -Epithelialization Large 67-100% -Exudate Amt None Present -Wound Margin Flat & Intact -Granulation Amt Large (67-100%) -Granulation Quality [place] -Necrosis Amt None Present (0 %) -Structure Exposed N/A -Texture (Beth-wound Skin Appearance) Scarring -Moisture (Beth-wound Skin Appearance No Abnormality ) -Color (Beth-wound Skin Appearance) No Abnormality -Temperature (Beth-wound Skin No Abnormality Appearance) (Pt Warm) -Ulcer Cleansing Rinsed/ Irrigated with Saline -Foul Odor after Cleansing No WC - Nurse 2 - General Ulcer CM Notes Start: 05/15/18 10:58 Freq: Status: Active Protocol: Activity Type Activity Date Activity User E-Sign Co-Sign Detail Recorded Client Recorded Date Recorded By Document 05/29/18 11:31 [id number] 05/29/18 11:32 05/29/18 11:31 Wound Center Nurse 2 [Procedure/Treatment] -Correct Patient No -Correct Side, Site, Position No -Correct Procedure No -Procedure Performed No -Post Debridement Size (cm) - Length 0 -Post Debridement Size (cm) - Width 0 -Post Debridement Size (cm) - Depth 0 -Total Square Cm 0 -Wound/Ulcer Outcome Healed- Epithelialized [See Physician Procedure note for Specifics] Pain Scale: 0-10 Numeric [Pain] -Is Patient Pain Free? Yes Neurological: Cranial nerves II-XII grossly intact Psych/Mental Status: Normal Affect, Appropriate Debridement Note Post-Debridement Measurements/Treatment WC - Nurse 2 - General Ulcer CM Notes Start: 05/15/18 10:58 Freq: Status: Active Protocol: Activity Type Activity Date Activity User E-Sign Co-Sign Detail Recorded Client Recorded Date Recorded By Document 05/15/18 11:47 [id number] 05/15/18 11:48 Document 05/29/18 11:31 [id number] 05/29/18 11:32 05/15/18 05/29/18 11:47 11:31 Wound Center Nurse 2 #2 RIGHT BUTTOCK -Time 11:47 -Correct Patient Yes No -Correct Side, Site, Position Yes No -Correct Procedure Yes No -Procedure Performed Yes No -Type of Procedure Debridement -Clinical Debridement Subcutaneous -Post Debridement Size (cm) - Length 2.5 0 -Post Debridement Size (cm) - Width 0.6 0 -Post Debridement Size (cm) - Depth 0.1 0 -Total Square Cm 1.50 0 -Wound/Ulcer Outcome Not Healed Healed- Epithelialized -Ulcer Cleansing Rinsed/ Irrigated with Saline -Foul Odor after Cleansing No -Bioengineered Tissue No -Bleeding Controlled with Pressure -Offloading No -Treatment Response Procedure Tolerated Well Pain Scale: 0-10 Numeric Is Patient Pain Free? Yes Yes Wound debrided: #2 Right gluteal area. Laterality: Right Wound Grade/Stage: 3. No debridement was completed today - the hematoma ulcer has healed. Assessment/Plan Assessment: 1. Hematoma ulcer right gluteal alrea, healed. 2. Late effect traumatic submuscular hematoma right gluteal area with extension to ischial bone and onto proximal posterior thigh. 3. Fall from stairs. 4. assisted use of anticoagulation. 5. s/p surgical preparation right gluteal and proximal posterior thigh area with incision and drainage and evacuation and excisional debridement traumatic submuscular hematoma with extension to ischial bone and onto proximal posterior thigh (180 cm2). Plan: The ulcer has healed. Massage the scar with skin lotion daily to help soften up the scar. Followup on an as needed basis.
== END 2018-06-08 23:59 ==
LOC: WC 10:45
PROVIDERS: Family Provider Family Medicine; PCP Family Medicine; Visit Provider Surgery
DX: S30.0XXA Contusion of lower back and pelvis, initial encounter (principal); W10.9XXA Fall (on) (from) unspecified stairs and steps, initial encounter
CPT/HCPCS: 11042; 99213; G0463

== ENCOUNTER → 2018-08-17 13:27 | Outpatient (CLI) | payer MEDICARE, SELFPAY ==
[2018-08-10 13:22] VITALS: BMI 30.9
[2018-08-17 15:27] LABS: AST(SGOT) 27 U/L (15-37); Alanine Aminotransfer ALT/SGPT 32 U/L (13-56); Albumin, Serum 3.9 g/dL (3.2-5.0); Alkaline Phosphatase 49 U/L (45-117); Bilirubin, Direct 0.11 mg/dL (0.00-0.30); Cholesterol 188 mg/dL (200); Globulin 3.2 g/dL (2.2-4.2); High Density Lipoprotein 50 mg/dL; Protein, Total 7.1 g/dL (6.4-8.2); Triglycerides 204 mg/dL; Very Low Density Lipoprotein 41 mg/dL (5-40)
--- NOTE | 2018-08-18 08:06 | PFT ---
INTRODUCTION: The patient is a 78-year-old female that presents for pulmonary function studies secondary to a diagnosis of high risk medication use. Respiratory therapy reports good patient effort. Bronchodilators were used during testing. INTERPRETATION: Forced expiration spirometry demonstrates no evidence of a large airways obstructive ventilatory defect. There was no significant response to aerosolized bronchodilators. Spirograms are of good quality and plateau normally. Body plethysmography was performed and reveals a decreased TLC to 3.8 L, 79% of predicted, indicative of a mild restrictive ventilatory impairment. The remainder of the lung volumes are symmetrically reduced. Diffusing capacity by single breath CO is disproportionately reduced at 54% of predicted. IMPRESSION: Mild restrictive ventilatory impairment with disproportionate reduction in diffusing capacity.
== END ==
PROVIDERS: Family Provider Family Medicine; PCP Family Medicine; Referring Provider Internal Medicine Cardiovascular Disease; Visit Provider Internal Medicine Cardiovascular Disease
DX: I48.0 Paroxysmal atrial fibrillation (principal); E78.5 Hyperlipidemia, unspecified
CPT/HCPCS: 36415; 80061; 80076; 94060; 94726; 94729

== ENCOUNTER → 2019-12-11 12:33 | Outpatient (CLI) | payer MEDICARE, SELFPAY ==
[2019-10-30 13:28] VITALS: BMI 31.4
--- NOTE | 2019-12-11 12:35 | ECHOD_ITS ---
Reason For Study: PHTN Procedure This was a 2D Doppler, Color Flow transthoracic echocardiogram. The study was technically difficult. Exam performed in department. Left Ventricle Normal LV size. Left ventricular systolic function is normal. The estimated ejection fraction is 60 %. Diastolic function is indeterminate. No regional wall motion abnormalities noted. Right Ventricle Normal RV size. Normal systolic function. Atria The left atrium is mildly enlarged. Normal right atrium. No doppler evidence for ASD. Mitral Valve There is no mitral annular calcification. Normal mitral valve. Trivial mitral valve insufficiency. Tricuspid Valve Normal tricuspid valve. Mild tricuspid valve insufficiency. Right ventricular systolic pressure estimated to be 35 mmHg. Aortic Valve Trisinus/trileaflet aortic valve. Normal aortic valve. Pulmonic Valve The pulmonic valve is not well visualized. Great Vessels The aortic root is not well visualized. Pericardium/Pleural No pericardial effusion. MMode/2D Measurements & Calculations LVIDd: 4.7 cm IVSd: 0.88 cm LA dimension: 4.0 cm LVIDs: 2.8 cm LVPWd: 0.80 cm FS: 39.7 % LAV(MOD-bp): 76.9 ml LA A4 area: 23.6 cm2 RA A4 area: 17.2 cm2 LAV(MOD-bp) Indexed: 40.8 ml/m2 LAV(MOD-sp2): 71.8 ml LAV(MOD-sp4): 80.0 ml Time Measurements MV dec time: 0.20 sec Doppler Measurements & Calculations MV E max vito: 69.8 cm/sec Lat Peak E' Vito: 9.2 cm/sec Med Peak E' Vito: 7.4 cm/sec MV A max vito: 61.5 cm/sec E/E' lat: 7.6 E/E' med: 9.5 MV E/A: 1.1 MV V2 max: 79.4 cm/sec MV P1/2t max vito: 78.6 cm/sec Ao V2 max: 110.1 cm/sec MV max P.5 mmHg MV P1/2t: 93.2 msec Ao max P.8 mmHg MV V2 mean: 36.2 cm/sec MV dec slope: 247.2 cm/sec2 MV mean P.67 mmHg MVA(P1/2t): 2.4 cm2 MV V2 VTI: 31.5 cm LV V1 max: 98.1 cm/sec PA V2 max: 67.2 cm/sec TR max vito: 257.6 cm/sec LV V1 max P.9 mmHg TR max P.5 mmHg Interpretation Summary The study was technically difficult. Left ventricular systolic function is normal. The estimated ejection fraction is 60 %. The left atrium is mildly enlarged. Trivial mitral valve insufficiency. Mild tricuspid valve insufficiency. Right ventricular systolic pressure estimated to be 35 mmHg. Diastolic function is indeterminate. Ordering Physician: Cosmo Balderas Referring Physician: Mauricio Barney Performed By: Stephen Whitfield RCS
[2019-12-11 13:58] LABS: AST(SGOT) 23 U/L (15-37); Alanine Aminotransfer ALT/SGPT 33 U/L (13-56); Albumin, Serum 3.6 g/dL (3.2-5.0); Alkaline Phosphatase 49 U/L (45-117); Bilirubin, Direct 0.13 mg/dL (0.00-0.30); Cholesterol 154 mg/dL (200); High Density Lipoprotein 54 mg/dL; Protein, Total 6.6 g/dL (6.4-8.2); T4 Total, Thyroxin 12.4 ug/dL (4.8-13.9); Thyroid Stim Hormone (TSH) 1.95 uIU/mL (0.358-3.74); Triglycerides 104 mg/dL; Very Low Density Lipoprotein 21 mg/dL (5-40)
--- NOTE | 2019-12-12 12:16 | PFTCOMP ---
COMPLETE PULMONARY FUNCTION TEST INTERPRETATION Brief HPI: Patient is a 79 year old [female male], currently under the care of Dr. Balderas, who presents to [facility] for complete pulmonary function tests secondary to diagnosis of amiodarone use. Respiratory therapist reports good effort and reproducible results. Interpretation: Forced expiration spirometry shows [no a mild moderate moderately-severe severe very severe] large airways obstructive ventilatory defect with an FEV1 of 86% predicted. There is no significant bronchodilator response by strict ATS criteria. Spirograms are of good quality and plateau [normally]. The respiratory flow volume loop shows [a normal pattern]. Lung volumes by body plethysmography show [a normal an elevated, a decreased] total lung capacity at 4.6 L, 97% predicted. [All other lung volumes are within normal limits.] Diffusion capacity by carbon monoxide is decreased at 47% predicted. The airway resistance is [normal elevated]. [Compared to previous pulmonary function tests from] 08/17/2018, there is been significant improvement in total lung capacity by 20%, but DLCO was decreased by 14%. Impression: Isolated reduction in diffusion capacity consistent with a pulmonary vascular disorder. There has been improvement in lung volumes compared to previous.
== END ==
PROVIDERS: PCP Family Medicine; Referring Provider Internal Medicine Cardiovascular Disease; Visit Provider Internal Medicine Cardiovascular Disease
DX: I48.0 Paroxysmal atrial fibrillation (principal); E78.5 Hyperlipidemia, unspecified; E03.9 Hypothyroidism, unspecified; M06.9 Rheumatoid arthritis, unspecified; Z79.899 Other long term (current) drug therapy
CPT/HCPCS: 36415; 80061; 80076; 84436; 84443; 93306; 94060; 94726; 94729

== ENCOUNTER 2020-06-12 13:36 | Outpatient (RCR) | payer MEDICARE, SELFPAY ==
[2020-05-07 13:35] VITALS: BMI 31.9
[2020-06-12] MEDS: COVID-19 VACC, MRNA(PFIZER)/PF 30 MCG/0.3 ML SYRINGE IM (12:44)
[2020-07-03] MEDS: COVID-19 VACC, MRNA(PFIZER)/PF 30 MCG/0.3 ML SYRINGE IM (12:34)
== END 2020-06-12 23:59 ==
LOC: IMMUN 13:36
PROVIDERS: PCP Family Medicine; Visit Provider Family Medicine
DX: Z23 Encounter for immunization (principal)
CPT/HCPCS: 0001A; 0002A

== ENCOUNTER 2020-07-25 11:16 | Emergency (ER) | payer MEDICARE, SELFPAY ==
[2020-05-07 13:35] VITALS: BMI 31.9
[2020-07-25 11:17] VITALS: BP 147/72; PULSE 56; RESP 18; TEMP 36.7; O2SAT 96; BMI 30.7
--- NOTE | 2020-07-25 11:35 | CT_ITS ---
STUDY: CT CERVICAL SPINE WITHOUT CONTRAST REASON FOR EXAM: Female, 80 years old. Injury/Pain following a fall. RADIATION DOSAGE (If Supplied By Facility): CTDIvol = ( 25.99 ) mGy, DLP = ( 602.11 ) mGycm TECHNIQUE: High resolution transaxial imaging was performed without contrast material. Sagittal and coronal images were reconstructed. Individualized dose optimization techniques were used for this CT. COMPARISON: None FINDINGS: Normal craniovertebral junction. Normal anterior atlantoaxial articulation. Normal odontoid process. Normal cervical lordosis. Normal vertebral bodies and posterior osseous elements. C2-3: Mild degree of the facet joint osteoarthritis on the left side. Mild degree of uncovertebral arthrosis. C3-4: Normal endplates. Normal disc height and morphology. Normal central canal and intervertebral neuroforamina. C4-5: Normal endplates. Normal disc height and morphology. Normal central canal and intervertebral neuroforamina. C5-6: Minimal degree of retrolisthesis of C5 on C6. Mild degree of facet joint osteoarthritis. C6-7: Normal endplates. Normal disc height and morphology. Normal central canal and intervertebral neuroforamina. C7-T1: Normal endplates. Normal disc height and morphology. Normal central canal and intervertebral neuroforamina. Normal visualized soft tissue structures. CT/Spine Cervical without Contras IMPRESSION: Multilevel degenerative changes, as described above. Electronically Signed: Sarthak Tucker MD at 12:43 EDT , Service support ,
--- NOTE | 2020-07-25 11:35 | CT_ITS ---
STUDY: CT BRAIN WITHOUT CONTRAST REASON FOR EXAM: Female, 80 years old. Injury/Pain following a fall. RADIATION DOSAGE (If Supplied By Facility): CTDIvol = ( 44.99 ) mGy, DLP = ( 812.98 ) mGycm TECHNIQUE: Transaxial CT imaging of the brain was performed without administration of intravenous contrast material. Individualized dose optimization techniques were used for this CT. COMPARISON: Comparison is made with prior examination dated 03/18/2018. FINDINGS: Normal soft tissue structures. Normal calvarium. There is mild cerebral atrophy with widening of the extra-axial spaces and ventricular dilatation. There are areas of decreased attenuation within the white matter tracts of the supratentorial brain, consistent with microvascular disease changes. Normal basal ganglia and thalami. Normal brainstem. Normal cerebellum. There is no intracranial hemorrhage. There are no findings of an acute ischemic infarction. Atherosclerotic plaque formation of the cavernous portions of the internal carotid arteries bilaterally. Normal visualized paranasal sinuses. CT/Brain/Head without Contrast IMPRESSION: Chronic involutional changes of the brain. Electronically Signed: Sarthak Tucker MD at 12:42 EDT , Service support ,
--- NOTE | 2020-07-25 11:36 | RAD_ITS ---
STUDY: X-RAY - LEFT SHOULDER REASON FOR EXAM: Female, 80 years old. Injury/Pain TECHNIQUE: 4 view(s) of the shoulder. COMPARISON: None. FINDINGS: Normal glenohumeral articulation. There is degenerative arthrosis of the acromioclavicular joint without inferior osseous spur formation. Normal acromion. Normal humeral head and visualized proximal humerus. The soft tissue structures are unremarkable. Normal visualized pulmonary apex. RAD/Shoulder min 2 Views IMPRESSION: Degenerative changes of the acromioclavicular joint. Electronically Signed: Sarthak Tucker MD at 12:44 EDT , Service support ,
[2020-07-25] MEDS: Ondansetron ODT 4 MG Tablet PO (11:44)
[2020-07-25] MEDS: fentaNYL 100 MCG/2 ML Ampul 50 MCG IM (11:44)
--- NOTE | 2020-07-25 12:27 | RAD_ITS ---
STUDY: X-RAY - LEFT CLAVICLE REASON FOR EXAM: Female, 80 years old. Injury/Pain TECHNIQUE: 2 view(s) of the clavicle. COMPARISON: None. FINDINGS: Normal clavicle. There is degenerative arthrosis of the acromioclavicular joint without inferior osseous prominence. Normal visualized sternoclavicular articulation. Normal visualized pulmonary apex. RAD/Clavicle IMPRESSION: Degenerative changes of the acromioclavicular joint. Electronically Signed: Sarthak Tucker MD at 12:44 EDT , Service support ,
--- NOTE | 2020-07-25 13:00 | ED.VISSUMM ---
- ER Visit Summary Date of Service: 07/25/20 Chief Complaint: Fall History of Present Illness: The patient is a [address] Barney. She reports that yesterday she slipped on the mat in the tub and fell injuring her left shoulder. She did hit her head. No loss of consciousness. However, she is on Eliquis. She denies headache. Patient planes of neck pain 6 out of 10 severity. She also has left shoulder pain is 8 out of 10 in severity. She has a bruise to her left hip. However, she denies pain there. She denies any wrist pain. No right hip pain. Physical Examination: Vitals: Stable. Afebrile. Neck: Mild diffuse tenderness palpation over the entire C-spine. No point tenderness. Full ROM without difficulty. Back: No vertebral tenderness. General: A&O x 3. NAD. Cardiovascular exam: Regular rate and rhythm, no murmur, rub or gallop. Respiratory exam: Chest nontender. No crepitus. Clear to auscultation bilaterally. No wheezes or stridor. Abdominal exam: Soft, nontender, nondistended, normal bowel sounds. No pain in RUQ or LUQ specifically. No peritoneal signs. Extremity: Moderate tense palpation over the proximal humerus on the left and over the left clavicle. Decreased range of motion secondary to pain. She has a contusion over her left greater trochanter. However there is no tenderness to palpation. She has no pain with internal or external rotation of her leg.. Test Results: Clinical Impression(s) from Imaging Studies Brain CT 07/25/20 11:35 IMPRESSION: Chronic involutional changes of the brain. Electronically Signed: Sarthak Tucker MD at 12:42 EDT , Service support , Cervical Spine CT 07/25/20 11:35 IMPRESSION: Multilevel degenerative changes, as described above. Electronically Signed: Sarthak Tucker MD at 12:43 EDT , Service support , Shoulder X-Ray 07/25/20 11:36 IMPRESSION: Degenerative changes of the acromioclavicular joint. Electronically Signed: Sarthak Tucker MD at 12:44 EDT , Service support , Clavicle X-Ray 07/25/20 12:27 IMPRESSION: Degenerative changes of the acromioclavicular joint. Electronically Signed: Sarthak Tucker MD at 12:44 EDT , Service support , Emergency Department Course and Treatment: Patient was given dose of fentanyl IM and Zofran p.o. She was placed in a sling. Treatment Plan: Patient will be discharged with Duffield and senna. Instructed to follow-up with Dr. Barney in 1 week if not improving. Return to the emergency department for any worsening symptoms. Disposition: To home in improved and stable condition. Impression: 1 1. Fall. 2. Left shoulder pain, acute. 3. Coagulopathy on Eliquis. This note was generated with [employer] dictation software. It may contain incorrect words, spelling, and punctuation that were not noted in review of the chart prior to signing ED Disposition - Plan for ED Patient: Instructions: ED Shoulder Pain, Uncertain Cause Prescriptions: Hydrocodone Bitart/Apap 5-325 [Duffield 5MG-325MG] 1 tablet PO Q4H PRN PRN 2 Days #10 tablet PRN Reason: Pain Sennosides [Senna] 8.6 mg PO QHS #10 tablet Referrals: Mauricio Barney MD [Primary Care Provider] - 1 Week if not improving
[2020-07-25] MEDS: HYDROcodone Bitartrate/Apap 5/325 Tablet PO (13:25)
== END 2020-07-25 13:32 | disposition home or self-care (01) ==
LOC: ED 12:22
PROVIDERS: Emergency Provider Emergency Medicine; PCP Family Medicine
DX: M25.512 Pain in left shoulder (principal); T45.7X5A Adverse effect of anticoagulant antagonists, vitamin K and other coagulants, initial encounter; Y92.9 Unspecified place or not applicable; I48.91 Unspecified atrial fibrillation; I73.9 Peripheral vascular disease, unspecified; E03.9 Hypothyroidism, unspecified; M06.9 Rheumatoid arthritis, unspecified; F32.9 Major depressive disorder, single episode, unspecified; Z79.01 Long term (current) use of anticoagulants; Z79.899 Other long term (current) drug therapy
CPT/HCPCS: 70450; 72125; 73000; 73030; 96372; 99283

== ENCOUNTER 2020-07-27 19:45 | Emergency (ER) | payer MEDICARE, SELFPAY ==
[2020-07-27 19:46] VITALS: BP 135/79; PULSE 61; RESP 16; TEMP 36.8; O2SAT 93; BMI 30.7
--- NOTE | 2020-07-27 20:11 | CT_ITS ---
STUDY: CT LEFT SHOULDER REASON FOR EXAM: Female, 80 years old. S/P FALL ON TUESDAY, NEGATIVE XRAY, UNCONTROLLED SHOULDER PAIN SINCE RADIATION DOSAGE (If Supplied By Facility): CTDIvol = ( 28.26 ) mGy, DLP = ( 559.56 ) mGycm TECHNIQUE: The patient was scanned in a multi detector CT scanner. High resolution transaxial imaging was performed without the administration of intravenous contrast material. Sagittal and coronal images were reconstructed. Individualized dose optimization techniques were used for this CT. COMPARISON: Left shoulder x-ray dated JULY 25, 2020 FINDINGS: The bony structures are demineralized. A mild impaction fracture of the left clavicular head with mild cortical offset is present. No additional acute fractures are seen. There is mild osteoarthritis of the glenohumeral articulation, with mild articular joint space narrowing and mild osteoarthritic spurring. Normal coracoid process. Normal scapula. There is mild osteoarthritis with articular joint space narrowing. There is a Type II morphology (curved), with a neutral orientation. Normal visualized muscles and soft tissue structures. CT/Extremity Upper without Contra IMPRESSION: 1. A mild impaction fracture of the left clavicular head with mild cortical offset is present. Electronically Signed: Raudel Bonner MD at 21:14 EDT , Service support ,
--- NOTE | 2020-07-27 20:13 | ED.VIS.GEN ---
History of Present Illness Chief Complaint: Upper Extremity Injury Informant: Patient Onset: Days - 3 Context: Sudden Onset - Gradually worsening Timing: Continuous Quality: pain Location: Left trapezius/shoulder radiating up in the left paraspinal neck musculatur Current Severity: Severe Maximum Severity: Severe Worsened by: Moving shoulder Relieved by: Remaining still, prescription analgesics which she is out of Associated Symptoms: None. No new symptoms. Narrative: Patient had a slip and fall on her bath mat while getting into the tub 3 days ago, she was seen here in the ER and had negative imaging, she was placed in a sling and given analgesics which helped some but she continues to have worsening pain. She denies any new symptoms. She points to the trapezius posterior to the clavicle as the main area of pain, saying that radiates over toward her acromion and up into the left paraspinal neck musculature. She does not have any numbness. She cannot move the shoulder because it hurts so bad, but she points to the trapezius as the main area where the pain is. She is on Eliquis. - Past Medical History (1) Compression fracture of L3 vertebra Status: Chronic (2) Atrial fibrillation Status: Chronic (3) DVT (deep venous thrombosis) Status: Chronic Comment: right lower leg (4) Depression Status: Chronic (5) Hyperlipidemia Status: Chronic (6) Hypothyroidism Status: Chronic (7) 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 Status: Chronic (8) Peptic ulcer disease Status: Chronic (9) Rheumatoid arthritis Status: Chronic (10) Vitamin D deficiency Status: Chronic Past Medical History - Allergies and Home Meds Allergies/Adverse Reactions: Allergies cephalexin monohydrate [From Keflex] Allergy (Verified 07/25/20 11:19) Hives ethchlorvynol [From Placidyl] Allergy (Verified 07/25/20 11:19) Unknown Penicillins [PCN] Allergy (Verified 07/25/20 11:19) Unknown Sulfa (Sulfonamide Antibiotics) Allergy (Verified 07/25/20 11:19) Rash sulfamethoxazole [From Septra] Allergy (Verified 07/25/20 11:19) Unknown trimethoprim [From Septra] Allergy (Verified 07/25/20 11:19) Unknown Primary Care Physician: Jitendra Graham DO [STAFF PHYSICIAN] - 1-2 Weeks (Call for appointment) Mauricio Barney MD [Primary Care Provider] - Surgical History: adenoidectomy, cholecystectomy, colectomy, hysterectomy, total knee arthroplasty - Bilateral, tonsillectomy, - - Shoulder surgery, bilateral bunionectomy, left heart cath, left lower extremity surgical debridement(hematoma). Lives: With Family Smoking Status: Never smoker - Family History Maternal Family History: Family History (Last Reviewed 05/07/20 @ 16:16 by Kathie GIBSON, PA) Father CAD (coronary artery disease) Mother Breast cancer Family History: Reports: Cancer - mother had breast CA in her 90's, Unknown Paternal Family History: Family History (Last Reviewed 05/07/20 @ 16:16 by Kathie GIBSON, PA) Father CAD (coronary artery disease) Mother Breast cancer Family History: Reports: Heart Disease, - - aneurysm in her father who from CAD and aneurym at 74 Sibling Family History: Family History (Last Reviewed 05/07/20 @ 16:16 by Kathie GIBSON, PA) Father CAD (coronary artery disease) Mother Breast cancer Family History: Reports: Cancer - she had a brother with throat cancer, - - she had a sister with severe epilepsy who lived in a [place] and Review of Systems General: Denies: Chills, Fever, Sweats Eyes: Denies: Visual changes - bilaterally, Diplopia ENT: Denies: Rhinorrhea, Sore throat Cardiovascular: Denies: Chest pain, Palpitations Respiratory: Denies: Dyspnea, Cough, Dyspnea on exertion Gastrointestinal: Denies: Abdominal pain, Nausea, Vomiting, Diarrhea, Melena, Hematochezia Genitourinary: Denies: Dysuria, Hematuria, Frequency Musculoskeletal: Reports: Neck pain, Extremity Pain. Denies: Back pain, Swelling Skin: Denies: Rash, Wounds Neurological: Denies: Headache, Weakness, Numbness Physical Exam Vital Signs/Narrative: Vital Signs Temp Pulse Resp BP Pulse Ox 07/27/20 19:46 98.3 F 61 16 135/79 H 93 Inital Vital Signs reviewed: Yes General: Well nourished, Well developed, No Acute Distress Head: Normocephalic, Atraumatic Eyes: Perrl, EOMI ENT: Moist mucous membranes, No rhinorrhea Neck: Supple, - - No midline tenderness or step-off or signs of trauma. Mild tenderness left paraspinal musculature lower neck. Also tender into the trapezius as the main area of tenderness without having the patient move. Cardiovascular: - - Intact 2+/4 radial pulses symmetric. Respiratory: No distress, CTA bilaterally, Chest nontender Abdomen: Soft, Nontender, Nondistended, Normal bowel sounds Back: Nontender, Normal Inspection Extremities: No edema, Tenderness - Initially patient had no subacromial tenderness. After attempting to have her abduct which she was not able to do due to limitations because of pain, she then is tender subacromial., - - No acromioclavicular joint tenderness. No clavicle tenderness. Mostly tender in the trapezius posterior to the clavicle. No scapular spine tenderness. Skin: Normal color, No rash, No Trauma Neurological: Alert, Oriented x3, Cranial nerves II-XII grossly intact, Normal Strength, Normal Sensation, Normal Gait Psychological: Normal affect, Normal Mood Diagnostic/Tx/Re-eval Clinical Impression(s) from Imaging Studies Upper Extremity CT 07/27/20 20:11 IMPRESSION: 1. A mild impaction fracture of the left clavicular head with mild cortical offset is present. Electronically Signed: Raudel Bonner MD at 21:14 EDT , Service support , - Medical Decision Making The x-rays appeared to be adequate to rule out posterior dislocation, but in order to rule this out and hemarthrosis, CT of the shoulder was obtained, and her pain was treated with morphine. Results are as above, showing a difficult to see fracture of the left clavicular head at the sternum. No hemarthrosis or dislocations. Patient is feeling better, will be treated with more outpatient pain medication and discharged home. I did offer admission and assisted if she felt she needed it but she declined. I do not think this fracture explains all of her symptoms, I still think she has trapezius strain that is explaining the majority of where her pain is since there is nothing on imaging in this area. There is no dislocation of the sternoclavicular joint, she can safely follow-up as an outpatient with a sling. ED Disposition - Plan for ED Patient: Disposition: Home or Assisted Living Diagnosis: Fracture of left clavicle, Strain of left trapezius muscle Instructions: ED Fracture, Clavicle Prescriptions: Oxycodone HCl/Acetaminophen [Percocet 5/325] 1 tablet PO Q6H PRN PRN 3 Days #12 tab PRN Reason: Pain Prescription Printed Referrals: Mauricio Barney MD [Primary Care Provider] - Jitendra Graham DO [STAFF PHYSICIAN] - 1-2 Weeks (Call for appointment)
[2020-07-27] MEDS: Ondansetron ODT 4 MG Tablet 8 MG PO (20:24)
[2020-07-27] MEDS: Morphine 4 MG/ML Syringe IM (20:24)
[2020-07-27 20:54] VITALS: BP 143/63; PULSE 57; RESP 16; O2SAT 95
[2020-07-27 21:26] VITALS: BP 129/62; PULSE 57; RESP 20; TEMP 36.6; O2SAT 94
== END 2020-07-27 21:51 | disposition home or self-care (01) ==
PROVIDERS: Emergency Provider Emergency Medicine; PCP Family Medicine
DX: S42.002A Fracture of unspecified part of left clavicle, initial encounter for closed fracture (principal); S46.812A Strain of other muscles, fascia and tendons at shoulder and upper arm level, left arm, initial encounter; W18.2XXA Fall in (into) shower or empty bathtub, initial encounter; Y93.89 Activity, other specified; Y92.9 Unspecified place or not applicable; Y99.9 Unspecified external cause status; I48.20 Chronic atrial fibrillation, unspecified; E78.5 Hyperlipidemia, unspecified; E03.9 Hypothyroidism, unspecified; E55.9 Vitamin D deficiency, unspecified; M18.0 Bilateral primary osteoarthritis of first carpometacarpal joints; M06.9 Rheumatoid arthritis, unspecified; Z79.01 Long term (current) use of anticoagulants; Z79.899 Other long term (current) drug therapy
CPT/HCPCS: 73200; 96372; 99283

== ENCOUNTER → 2020-08-25 14:05 | Outpatient (CLI) | payer MEDICARE, SELFPAY ==
[2020-08-13 15:09] VITALS: BMI 31.9
--- NOTE | 2020-08-25 14:07 | ECHOCS_ITS ---
Reason For Study: Dyspnea/SOB Procedure This was a 2D Doppler, Color Flow transthoracic echocardiogram. Technically difficult study, contrast injection performed. Patient scanned supine and slightly upright due to fractured left clavical. Exam performed in department. Left Ventricle Normal LV size. Left ventricular systolic function is normal. The estimated ejection fraction is 60 %. Stage 1 diastolic dysfunction. No regional wall motion abnormalities noted. Right Ventricle Normal RV size. Normal systolic function. Atria The left atrium is mildly enlarged. Normal right atrium. Mitral Valve Normal mitral valve. Tricuspid Valve Normal tricuspid valve. Aortic Valve Trisinus/trileaflet aortic valve. Pulmonic Valve The pulmonic valve is not well visualized. Great Vessels Calcified aortic root. The pulmonary artery is normal size. Normal inferior vena cava. Pericardium/Pleural No pericardial effusion. Medication 22 gauge I.V. with prn adaptor inserted into right arm. Diluted definity 4ml given slow IV push to enhance endocardial definition. MMode/2D Measurements & Calculations LVIDd: 4.3 cm IVSd: 0.64 cm Ao root diam: 3.7 cm LVIDs: 2.6 cm LVPWd: 0.87 cm LA dimension: 3.4 cm FS: 38.8 % LAV(MOD-sp4): 61.4 ml LA A4 area: 21.1 cm2 Time Measurements MV dec time: 0.35 sec Doppler Measurements & Calculations MV E max vito: 40.6 cm/sec Med Peak E' Vito: 5.6 cm/sec MV V2 max: 81.4 cm/sec MV A max vito: 66.5 cm/sec E/E' med: 7.2 MV max P.7 mmHg MV E/A: 0.61 MV V2 mean: 38.1 cm/sec MV mean P.72 mmHg MV V2 VTI: 28.3 cm MV P1/2t max vito: 62.6 cm/sec Ao V2 max: 100.8 cm/sec LV V1 max: 78.4 cm/sec MV P1/2t: 67.3 msec Ao max P.1 mmHg LV V1 max P.5 mmHg MV dec slope: 272.4 cm/sec2 MVA(P1/2t): 3.3 cm2 PA V2 max: 96.3 cm/sec ECHO/Echo Complete W/ Contrast Interpretation Summary Normal LV size. Left ventricular systolic function is normal. The estimated ejection fraction is 60 %. Stage 1 diastolic dysfunction. Contrast injection was performed. Ordering Physician: Corby Webb Referring Physician: Mauricio Barney Performed By: Stephen Whitfield RCS
== END ==
PROVIDERS: PCP Family Medicine; Referring Provider Nurse Practitioner Family; Visit Provider Nurse Practitioner Family
DX: R06.02 Shortness of breath (principal); R60.9 Edema, unspecified
CPT/HCPCS: 93306; Q9957; A4216; C8929

== ENCOUNTER → 2021-02-05 15:20 | Outpatient (CLI) | payer MEDICARE, SELFPAY ==
[2021-02-05 17:28] LABS: Hematocrit 37.3 % (37-47); Hemoglobin 11.7 g/dL (12.0-15.0); Mean Corp Hgb Conc 31.4 g/dL (32-36); Mean Corpuscular Hgb 31.2 pg (27.0-32.0); Mean Corpuscular Volume 99.5 fL (81-99); Mean Platelet Vol. 10.2 fl (6.2-12.0); Platelet Count 344 K/mm3 (150-450); RBC Distribution Width CV 14.4 % (11.6-14.6); RBC Distribution Width SD 51.7 fl (35.1-43.9); Red Blood Count 3.75 M/mm3 (4.2-5.4); White Blood Count 7.6 K/mm3 (4.4-11.0)
[2021-02-05 17:51] LABS: Anion Gap 5 (5-15); BUN 16 mg/dL (7-18); BUN/Creat Ratio 12.7 RATIO (10-20); Calcium,Total 8.8 mg/dL (8.5-10.1); Chloride 104 mmol/L (98-107); Creatinine, Serum 1.26 mg/dL (0.55-1.02); EST Glomerular Filtration Rate 44 mL/min (>60); Est Glom Filt Rate - Afr Amer 53 mL/min (>60); Glucose 104 mg/dL (74-106); Potassium 4.4 mmol/L (3.5-5.1); Sodium Level 137 mmol/L (136-145)
== END ==
PROVIDERS: PCP Family Medicine; Visit Provider Internal Medicine Cardiovascular Disease
DX: I48.0 Paroxysmal atrial fibrillation (principal)
CPT/HCPCS: 36415; 80048; 85027

== ENCOUNTER 2021-07-27 13:57 | Outpatient (CLI) | payer MEDICARE, SELFPAY ==
--- NOTE | 2021-07-27 14:10 | RAD_ITS ---
STUDY: X-RAY CHEST REASON FOR EXAM: Female, 81 years old. CHEST PAIN SOB / SOA On Amiodarone- Screening TECHNIQUE: XR Chest 2 Views COMPARISON: 1.7 FINDINGS: There is no demonstrated pleural abnormality. Normal size heart. Normal mediastinum and antoine. Normal visualized pulmonary arteries. There is atherosclerotic calcification of the aortic arch with tortuosity. There are diffuse degenerative changes of the visualized thoracic spine. There is degenerative osteoarthritis of the bilateral shoulders. There is no demonstrated abnormality of the visualized soft tissue structures of the upper abdomen. RAD/Chest PA and Lateral IMPRESSION: There are no acute findings. Electronically Signed: David Bogres MD at 20:55 EDT ,
[2021-07-27 16:02] LABS: AST(SGOT) 28 U/L (15-37); Alanine Aminotransfer ALT/SGPT 29 U/L (13-56); Albumin, Serum 3.5 g/dL (3.2-5.0); Alkaline Phosphatase 70 U/L (45-117); Bilirubin, Direct 0.12 mg/dL (0.00-0.30); Globulin 3.8 g/dL (2.2-4.2); Protein, Total 7.3 g/dL (6.4-8.2)
== END 2021-07-27 23:59 | disposition home or self-care (01) ==
LOC: RAD 14:00 → LAB 14:21
PROVIDERS: PCP Family Medicine; Referring Provider Nurse Practitioner Family; Visit Provider Nurse Practitioner Family
DX: I48.0 Paroxysmal atrial fibrillation (principal); E78.00 Pure hypercholesterolemia, unspecified; Z79.899 Other long term (current) drug therapy
CPT/HCPCS: 36415; 71046; 80076

== ENCOUNTER 2022-04-27 16:02 | Inpatient (IN) | payer MEDICARE, SELFPAY ==
[2022-04-27 16:21] VITALS: BP 150/71; PULSE 57; RESP 18; TEMP 36; O2SAT 95; BMI 29.3
[2022-04-27] MEDS: oxyCODONE 5 MG Tablet PO ×2 (18:46→23:50)
[2022-04-27] MEDS: APIXABAN 5 MG TABLET PO (18:50)
--- NOTE | 2022-04-27 19:24 | HP.PCM_ITS ---
HPI - General General Date of Admission: 04/27/22 Date of Service: 04/27/22 Chief Complaint: Here for rehabilitation. HPI Narrative BRADLEY GILMORE, is a 81 Female who presents with followin04/22/2022 Admit to [facility]. Patient fell at home going down steps. Fell backwards hitting back on door. Patient has mid back pain. She had similar back pain 1.5 years ago, which resulted in kyphoplasty with Dr. Goddard. No loss of consciousness, no head injury. Chest X-ray okay, CT head okay, CT thoracic spine showed no acute fracture. Weldon 5/325mg given without improvement. Start Lidoderm patch for pain control. Dr. Goddard consulted, thought pain caused by left rib fracture. 04/24/2022 Patient discharged home. Patient did not do well at home, unable to care for herself. frail and unable to provide much help. 04/27/2022 Admit to TCU with debility, here for rehabilitation, strengthening, prior to discharge home with . ON LICENSE OF [facility] Medical History Acute blood loss anemia Cellulitis of left lower extremity Compression fracture of L3 vertebra Depression DVT (deep venous thrombosis) Gastrointestinal bleed GI bleed Hematoma of right lower extremity History of Clostridium difficile Hyperlipidemia Hypothyroidism Immunosuppressed status shelter current use of anticoagulant Open wound of right buttock with complication 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 Paroxysmal atrial fibrillation Peptic ulcer disease Rheumatoid arthritis Traumatic hematoma of buttock Vitamin D deficiency Home Medications sertraline 100 mg tablet 100 mg PO DAILY mood/depression 10/17/14 [History Last Taken 03/21/18 10:55] golimumab 50 mg/0.5 mL subcutaneous pen injector (Simponi) 50 mg IV QMONTH RA 05/07/20 [History Last Taken Unknown] handicap placcard #1 ea 05/07/20 [Rx Last Taken Unknown] levothyroxine 75 mcg tablet 75 mcg PO DAILY thyroid 02/05/21 [History Last Taken Unknown] cranberry 500 mg capsule 500 mg PO DAILY supplement 07/27/21 [History Last Taken Unknown] ergocalciferol (vitamin D2) 50 mcg (2,000 unit) capsule 50 mcg PO DAILY supplement 07/27/21 [History Last Taken Unknown] atorvastatin 20 mg tablet 20 mg PO QHS cholesterol #90 tabs 09/25/21 [Rx Last Taken Unknown] Sudafed 1 tablet OTHER PRN PRN Congestion 04/27/22 [History Last Taken Unknown] Viactiv 1 dose OTHER DAILY supplement 04/27/22 [History Last Taken Unknown] acetaminophen 500 mg tablet 1,000 mg PO Q6H PRN PRN Pain 04/27/22 [History Last Taken Unknown] amiodarone 200 mg tablet 200 mg PO DAILY heart 04/27/22 [History Last Taken Unknown] apixaban 2.5 mg tablet (Eliquis) 2.5 mg PO DAILY blood thinner 04/27/22 [History Last Taken Unknown] apixaban 5 mg tablet (Eliquis) 5 mg PO BID blood thinner 04/27/22 [History Last Taken Unknown] Allergy/AdvReac Type Severity Reaction Status Date / Time cephalexin monohydrate Allergy Hives Verified 07/27/21 13:15 [From Keflex] ethchlorvynol [From Placidyl] Allergy Unknown Verified 07/27/21 13:15 Penicillins [PCN] Allergy Unknown Verified 07/27/21 13:15 Sulfa (Sulfonamide Allergy Rash Verified 07/27/21 13:15 Antibiotics) sulfamethoxazole Allergy Unknown Verified 07/27/21 13:15 [From Septra] trimethoprim [From Septra] Allergy Unknown Verified 07/27/21 13:15 Family History Father CAD (coronary artery disease) Mother Breast cancer breast Surgical History H/O colectomy H/O shoulder surgery H/O total hysterectomy History of arthroplasty of left knee History of bunionectomy of both great toes History of evacuation of hematoma (03/20/18) History of left heart catheterization (1999) History of right knee joint replacement History of tonsillectomy and adenoidectomy Hx of cholecystectomy surgical debridement left lower extremity (10/2014) Social History (Updated 04/27/22 @ 19:[address] Mac Jaimes MD) household members: spouse Smoking Status: Never smoker alcohol intake: current alcohol intake frequency: holidays/special occasions only Alcohol type: wine substance use type: does not use caffeine: Yes Type: coffee Number of servings: 2 ROS Constitutional Constitutional: Denies chills, fever(s) or weight gain ENT HEENT: Denies headache(s), nasal congestion or nasal discharge Cardiovascular Cardiovascular: Denies chest pain or palpitations Respiratory/Chest Respiratory/Chest: Denies cough, excessive phlegm production or shortness of breath with exertion Gastrointestinal Gastrointestinal: Denies abdominal pain, nausea or vomiting Genitourinary Genitourinary: Denies dysuria Musculoskeletal Musculoskeletal: Denies joint pain or joint swelling Integumentary Integumentary: Denies rash or wounds Neurologic Neurologic: Denies focal weakness, numbness or tingling Psychiatric Psychiatric: Denies anxiety, auditory hallucinations, depression, homicidal ideation or suicidal ideation Vital Signs Vital Signs Vital Signs: 04/27/22 16:21 Temperature 96.8 F L Temperature Source Oral Pulse Rate 57 L Respiratory Rate 18 Blood Pressure 150/71 H Blood Pressure Mean 97 Blood Pressure Source Monitor Blood Pressure Position Sitting Blood Pressure Location Right Arm Pulse Ox 95 Oxygen Delivery Method Room Air Weight Weight: 77.564 kg Body Mass Index (BMI) 29.3 Physical Exam Const alert General Appearance: cooperative HEENT normocephalic Eyes PERRL and EOMs intact bilaterally Neck supple, no JVD and no carotid bruits Resp normal respiratory effort, normal air movement and clear to auscultation bilaterally Cardio regular rate and regular rhythm GI normal to inspection, nondistended, normoactive bowel sounds, non-tender and non-distended Extremity normal capillary refill General Extremity: Negative for edema Skin no rashes or lesions noted General Skin Exam: no breakdown Psych affect normal Appearance: appropriate Results Lab / Micro Data Micro: Microbiology 04/27/22 16:45 Nasal Secretion SARS-CoV-2 Antigen (Rapid) - Final Assessment & Plan Assessment/Plan (1) Debility: (2) Left rib fracture: (3) Atrial fibrillation: (4) Rheumatoid arthritis: (5) Hypertension: (6) Anxiety: (7) Hypothyroidism: PLAN: Plan 81 year old female with below past medical history hospitalized for fall, left rib fracture, failed discharge home, admitted to TCU with debility, here for rehabililtation, strengthening, prior to discharge home with . * Debility - PT/OT. * Pain - Tylenol 1000mg q6h prn pain (1-3), Tramadol 50mg q6h prn pain (4-5), Oxycodone 5mg q4h prn pain (6-10), Lidoderm patch topical daily. * Bowel - Miralax 17gm daily, senna/colace 2 tablets bid, Dulcolax 10mg pr x 1 prn, MOM 30ml po x 1 prn. * Adult immunization - Administer pneumonia vaccine, covid19 vaccine, flu vaccine as appropriate. * DVT prophylaxis - Not necessary, on Eliquis. * Atrial fibrillation - Amiodarone 200mg daily, Eliquis 5mg bid. * Hyperlipidemia - Atorvastatin 20mg qhs. * Hypothyroidism - Levothyroxine 75mcg daily. 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 * Vitamin D deficiency - D3 50mcg daily.
[2022-04-27] MEDS: Atorvastatin Calcium 20 MG Tablet PO (21:38)
[2022-04-27] MEDS: Senna/Docusate Sodium 1 Tablet 2 TABLET PO (21:39)
[2022-04-28 05:57] LABS: Absolute Neutrophil Count 3.2 X10^3/uL (2.0-7.7); Basophil# 0.05 X10^3/uL; Basophil% 0.8 % (0-1); Eosinophil# 0.14 X10^3/uL; Eosinophils% 2.3 % (0-5); Hematocrit 41.5 % (37-47); Hemoglobin 12.9 g/dL (12.0-15.0); Mean Corp Hgb Conc 31.1 g/dL (32-36); Mean Corpuscular Hgb 30.9 pg (27.0-32.0); Mean Corpuscular Volume 99.5 fL (81-99); Mean Platelet Vol. 9.8 fl (6.2-12.0); Monocyte# 0.65 X10^3/uL; Monocyte% 10.5 % (0-10); NRBC Flagged by Analyzer 0 % (0-5); Neutrophil % 51.8 % (47-70); Platelet Count 227 K/mm3 (150-450); RBC Distribution Width CV 13.5 % (11.6-14.6); RBC Distribution Width SD 49.4 fl (35.1-43.9); Red Blood Count 4.17 M/mm3 (4.2-5.4); White Blood Count 6.2 K/mm3 (4.4-11.0)
[2022-04-28] MEDS: Polyethylene Glycol 3350 17 GM PACKET PO (06:30)
[2022-04-28] MEDS: Amiodarone 200 MG Tablet PO (06:31)
[2022-04-28] MEDS: Sertraline 100 MG Tablet PO (06:31)
[2022-04-28] MEDS: Cholecalciferol (VIT D3) 25 MCG TABLET (1,000 UNITS) 50 MCG PO (06:31)
[2022-04-28] MEDS: Levothyroxine 75 MCG Tablet PO (06:31)
[2022-04-28] MEDS: oxyCODONE 5 MG Tablet PO ×3 (06:31→17:56)
[2022-04-28] MEDS: APIXABAN 5 MG TABLET PO ×2 (06:31→17:57)
[2022-04-28] MEDS: Senna/Docusate Sodium 1 Tablet 2 TABLET PO ×2 (06:31→17:57)
[2022-04-28] MEDS: Lidocaine 5% Patch 1 PATCH TOPICAL (06:32)
[2022-04-28 06:49] LABS: Anion Gap 6 (5-15); BUN 17 mg/dL (7-18); BUN/Creat Ratio 15.6 RATIO (10-20); Calcium,Total 8.9 mg/dL (8.5-10.1); Chloride 103 mmol/L (98-107); Creatinine, Serum 1.09 mg/dL (0.55-1.02); EST Glomerular Filtration Rate 51 mL/min (>60); Est Glom Filt Rate - Afr Amer 62 mL/min (>60); Estimated Creatinine Clearance 35.55 ml/min; Glucose 101 mg/dL (74-106); Sodium Level 139 mmol/L (136-145)
[2022-04-28] MEDS: Tuberculin,Purif.prot.deriv. 50 TU/ML Vial 0.1 ML ID (10:18)
[2022-04-28] MEDS: traMADol 50 MG Tablet PO ×2 (10:18→21:09)
--- NOTE | 2022-04-28 11:51 | PCM.PN.DRR ---
TCU RX Drug Regimen Review Subjective: TCU Admission. 81 YOF hospitalized for fall, left rib fracture, failed discharge home. Admitted to TCU with debility for strengthening and rehabilitation. Objective: Allergies cephalexin monohydrate [From Keflex] Allergy (Verified 07/27/21 13:15) Hives ethchlorvynol [From Placidyl] Allergy (Verified 07/27/21 13:15) Unknown Penicillins [PCN] Allergy (Verified 07/27/21 13:15) Unknown Sulfa (Sulfonamide Antibiotics) Allergy (Verified 07/27/21 13:15) Rash sulfamethoxazole [From Septra] Allergy (Verified 07/27/21 13:15) Unknown trimethoprim [From Decra] Allergy (Verified 07/27/21 13:15) Unknown Current Medications Generic Name Dose Route Start Last Admin Trade Name Freq PRN Reason Stop Dose Admin Acetaminophen 1,000 mg 04/27/22 16:52 Acetaminophen 500 Mg Tablet PO Q6H PRN PRN Pain 1-3 Amiodarone HCl 200 mg 04/28/22 06:00 04/28/22 06:31 Amiodarone 200 Mg Tablet PO 200 mg DAILY ERIK Administration Apixaban 5 mg 04/27/22 18:00 04/28/22 06:31 Apixaban 5 Mg Tablet PO 5 mg BID ERIK Administration Atorvastatin Calcium 20 mg 04/27/22 22:00 04/27/22 21:38 Atorvastatin Calcium 20 Mg Tablet PO 20 mg QHS ERIK Administration Bisacodyl 10 mg 04/27/22 19:40 Bisacodyl 10 Mg Suppository RC X1 PRN Constipation Cholecalciferol 50 mcg 04/28/22 06:00 04/28/22 06:31 Cholecalciferol (Vit D3) 25 Mcg Tablet (1,000 Units) PO 50 mcg DAILY ERIK Administration Levothyroxine Sodium 75 mcg 04/28/22 06:00 04/28/22 06:31 Levothyroxine 75 Mcg Tablet PO 75 mcg DAILY ERIK Administration Lidocaine 1 patch 04/28/22 06:00 04/28/22 06:32 Lidocaine 5% Patch TOPICAL 1 patch DAILY ERIK Administration Protocol Magnesium Hydroxide 30 ml 04/27/22 19:40 Magnesium Hydroxide 30 Ml Udc PO X1 PRN Constipation Oxycodone HCl 5 mg 04/27/22 17:12 04/28/22 06:31 Oxycodone 5 Mg Tablet PO 5 mg Q4H PRN PRN Administration Pain Score 6-10 Polyethylene Glycol 17 gm 04/28/22 06:00 04/28/22 06:30 Polyethylene Glycol 3350 17 Gm Packet PO 17 gm DAILY ERIK Administration Senna/Docusate Sodium 2 tablet 04/27/22 19:45 04/28/22 06:31 Senna/Docusate Sodium 1 Tablet PO 2 tablet BID ERIK Administration Sertraline HCl 100 mg 04/28/22 06:00 04/28/22 06:31 Sertraline 100 Mg Tablet PO 100 mg DAILY ERIK Administration Tramadol HCl 50 mg 04/27/22 17:11 04/28/22 10:18 Tramadol 50 Mg Tablet PO 50 mg Q6H PRN PRN Administration Pain Score 4-5 Tuberculin PPD 0.1 ml 05/05/22 10:00 Tuberculin,Purif.Prot.Deriv. 50 Tu/Ml Vial ID 05/05/22 10:01 X1 ONE Problem List (Last Reviewed 04/27/22 @ 19:[address] Mac Jaimes MD) Hypothyroidism (Acute) Anxiety (Acute) Hypertension (Chronic) Rheumatoid arthritis (Acute) Atrial fibrillation (Acute) Left rib fracture (Acute) Debility (Acute) Vital Signs Temp Pulse Resp BP Pulse Ox O2 Del Method 96.8 F L 57 L 18 150/71 H 95 Room Air 04/27/22 16:21 04/27/22 16:21 04/27/22 16:21 04/27/22 16:21 04/27/22 16:21 04/27/22 16:21 Oxygen Delivery Method Room Air Weight: 77.564 kg Body Mass Index (BMI) 29.3 Sodium 139 mmol/L (136-145) 04/28/22 05:28 Potassium 4.0 mmol/L (3.5-5.1) 04/28/22 05:28 Chloride 103 mmol/L (98-107) 04/28/22 05:28 Carbon Dioxide 30.0 mmol/L (21.0-32.0) 04/28/22 05:28 Anion Gap 6 (5-15) 04/28/22 05:28 BUN 17 mg/dL (7-18) 04/28/22 05:28 Creatinine 1.09 mg/dL (0.55-1.02) H 04/28/22 05:28 Est GFR (MDRD) Af Amer 62 mL/min (>60) 04/28/22 05:28 Est GFR (MDRD) Non-Af 51 mL/min (>60) L 04/28/22 05:28 BUN/Creatinine Ratio 15.6 RATIO (10-20) 04/28/22 05:28 Glucose 101 mg/dL (74-106) 04/28/22 05:28 Assessment/Plan: 1. Pain: acetaminophen 1000mg PO Q6H PRN pain 1-3, tramadol 50mg PO Q6H PRN pain 4-5 and oxycodone 5mg PO Q4H PRN pain 6-10. Resident has not had any doses of acetaminophen but had 3 doses of oxycodone (pain 6/7 in the back) and 1 dose of tramadol (pain of 6 in the back). Please continue to monitor for increased pain, PRN usage, constipation and respiratory depression. 2. Bowel: Miralax 17gm PO daily, senna/docusate 2T PO BID, bisacodyl 10mg RC x1 PRN constipation and MOM 30mL PO x1 PRN constipation. Please continue to monitor for constipation and PRN usage. No documented bowel movements yet. 3. Atrial fibrillation: amiodarone 200mg PO daily and apixaban 5mg PO BID. Please continue to monitor for S/S of bleeding, hemoglobin (last 12.9g/dL), potassium (last 4mmol/L), sodium (last 139mmol/L), BP (last 150/71) and HR (last 57). 4. Hyperlipidemia: atorvastatin 20mg PO QHS. Please consider ordering a lipid panel if clinically appropriate. Last lipid panel from 12/2019. Thanks. Please continue to monitor LFTs (last 07/2021) and for muscle pain. 5. Hypothyroidism: levothyroxine 75mcg PO daily. Please consider ordering a TSH if clinically appropriate. Last level from 12/2019. Thanks. Please continue to monitor for S/S of hypo/hyperthyroidism. 6. Vitamin D deficiency: cholecalciferol 50mcg PO daily. Please consider ordering a vitamin D level as this resident does not have one in the chart. Thanks. Assessment/Plan for indications treated with psychotropic medications: 1. Depression: sertraline 100mg PO daily. Please see physician note regarding GDR. Please continue to monitor for suicidal ideation (black box warning), falls/fractures (BEERs medication, resident presented with a fall), weight gain and sodium (last 139mmol/L). Medical chart and medication regimen reviewed. The following medication irregularities or issues were identified: *1. Atorvastatin 20mg PO QHS. Please consider ordering a lipid panel if clinically appropriate. Last lipid panel from 12/2019. Thanks. *2. Levothyroxine 75mcg PO daily. Please consider ordering a TSH if clinically appropriate. Last level from 12/2019. Thanks. *3. Cholecalciferol 50mcg PO daily. Please consider ordering a vitamin D level as this resident does not have one in the chart. Thanks. Date of Note:: 04/28/22
--- NOTE | 2022-04-28 11:54 | CASEMGMT ---
Social Work Met with patient to complete initial assessment. Introduced self and role. Verified contacts. Discussed code status and MOLST form. Pt confirms full code. MOLST placed in Dr folder. Educated to [facility] insurance with NRD 04/29 and continued stay is not guaranteed with each review. Pt's goal is to return home with at [facility]. SW to continue to follow for DC planning. Taylor Ramon, STILL OPERATOR BATCH OR CONTINUOUS FOUNDATION STAGE TEACHER
[2022-04-28 14:09] VITALS: BP 138/62; PULSE 64; RESP 17; TEMP 36.6; O2SAT 93
--- NOTE | 2022-04-28 14:54 | NURSING ---
Director Of Philanthropy Note; Activity Asset: Oswald Celaya is independent in her choice of daily activities. Belia did have her family bring her computer in so she can work on her jigsaw puzzles on her computer. She will also use her smartphone for games and talking w/family. She did state she would like to see the therapy dog and is fine w/visits from the miner placer. While her she prefers to do activities in her room, will visit along w/cheondoism.
[2022-04-28] MEDS: Acetaminophen 500 MG Tablet 1000 MG PO (15:52)
--- NOTE | 2022-04-28 16:01 | CHAPLAIN ---
Type of Pastoral Visit _x__ Initial Visit ___ Follow-up Visit ___ On-call Visit ___ General Patient Visit ___ Spiritual Assessment ___ Family Conference ___ Bereavement ___ Rapid Response ___ Code Blue ___ Other (describe below) Pastoral Care Referral From _x__ Patient ___ Family ___ Nurse ___ Physician ___ Hardener Helper ___ Flotation Tank Operator ___ Other (describe below) Sacrament/Intervention _x__ Active listening ___ Anointing ___ Alevism ___ Bereavement ___ Communion ___ Alva exploration ___ ___ Life review _x__ Prayer ___ Reconciliation ___ Sacrament of Sick _x__ Supportive presence ___ Wedding ___ Other (describe below) Pastoral Comments patient has been seen before and this visit is an update on her care and how she coping in her situation; pt is just starting in the therapy routine; pt has two daughters for support; time for listening, presence, and prayer given; pt is ready to rest so the visit is kept short
[2022-04-28] MEDS: Atorvastatin Calcium 20 MG Tablet PO (21:02)
[2022-04-28 21:16] VITALS: PULSE 67; RESP 14; O2SAT 94
[2022-04-29] MEDS: Lidocaine 5% Patch 1 PATCH TOPICAL (06:33)
[2022-04-29] MEDS: oxyCODONE 5 MG Tablet PO ×3 (06:36→21:02)
[2022-04-29] MEDS: Cholecalciferol (VIT D3) 25 MCG TABLET (1,000 UNITS) 50 MCG PO (06:37)
[2022-04-29] MEDS: Sertraline 100 MG Tablet PO (06:37)
[2022-04-29] MEDS: Amiodarone 200 MG Tablet PO (06:37)
[2022-04-29] MEDS: APIXABAN 5 MG TABLET PO ×2 (06:37→17:19)
[2022-04-29] MEDS: Levothyroxine 75 MCG Tablet PO (06:37)
[2022-04-29 06:45] VITALS: BP 167/57; PULSE 57
[2022-04-29] MEDS: traMADol 50 MG Tablet PO ×2 (10:31→17:24)
[2022-04-29 14:27] VITALS: BP 143/69; PULSE 65; RESP 16; TEMP 531.9; TEMP 989.4; O2SAT 93
[2022-04-29] MEDS: Atorvastatin Calcium 20 MG Tablet PO (21:03)
[2022-04-30] MEDS: traMADol 50 MG Tablet PO ×3 (00:30→17:24)
[2022-04-30] MEDS: oxyCODONE 5 MG Tablet PO ×3 (05:56→21:26)
[2022-04-30] MEDS: Amiodarone 200 MG Tablet PO (05:56)
[2022-04-30] MEDS: Lidocaine 5% Patch 1 PATCH TOPICAL (05:57)
[2022-04-30] MEDS: Sertraline 100 MG Tablet PO (05:57)
[2022-04-30] MEDS: APIXABAN 5 MG TABLET PO ×2 (05:57→17:22)
[2022-04-30] MEDS: Levothyroxine 75 MCG Tablet PO (05:57)
[2022-04-30] MEDS: Cholecalciferol (VIT D3) 25 MCG TABLET (1,000 UNITS) 50 MCG PO (05:57)
[2022-04-30 14:50] VITALS: BP 145/63; PULSE 60; RESP 14; TEMP 35.6; O2SAT 93
[2022-04-30] MEDS: Senna/Docusate Sodium 1 Tablet 2 TABLET PO (17:22)
[2022-04-30] MEDS: Atorvastatin Calcium 20 MG Tablet PO (21:26)
[2022-04-30 21:31] VITALS: PULSE 63; RESP 16; O2SAT 94
[2022-05-01] MEDS: Polyethylene Glycol 3350 17 GM PACKET PO (06:25)
[2022-05-01] MEDS: Cholecalciferol (VIT D3) 25 MCG TABLET (1,000 UNITS) 50 MCG PO (06:26)
[2022-05-01] MEDS: Sertraline 100 MG Tablet PO (06:27)
[2022-05-01] MEDS: traMADol 50 MG Tablet PO (06:27)
[2022-05-01] MEDS: Senna/Docusate Sodium 1 Tablet 2 TABLET PO ×2 (06:27→17:18)
[2022-05-01] MEDS: Lidocaine 5% Patch 1 PATCH TOPICAL (06:27)
[2022-05-01] MEDS: APIXABAN 5 MG TABLET PO ×2 (06:27→17:18)
[2022-05-01] MEDS: Levothyroxine 75 MCG Tablet PO (06:27)
[2022-05-01] MEDS: Amiodarone 200 MG Tablet PO (06:27)
[2022-05-01 06:30] VITALS: BP 128/57; PULSE 62
[2022-05-01 09:26] VITALS: PULSE 64; RESP 16; O2SAT 94
[2022-05-01] MEDS: oxyCODONE 5 MG Tablet PO (12:27)
[2022-05-01] MEDS: Acetaminophen 500 MG Tablet 1000 MG PO (13:54)
[2022-05-01 13:56] VITALS: BP 127/73; PULSE 69; RESP 16; TEMP 36.2; O2SAT 94
[2022-05-01] MEDS: Atorvastatin Calcium 20 MG Tablet PO (20:42)
[2022-05-02] MEDS: oxyCODONE 5 MG Tablet PO ×3 (01:14→20:24)
[2022-05-02] MEDS: Amiodarone 200 MG Tablet PO (05:41)
[2022-05-02] MEDS: Lidocaine 5% Patch 1 PATCH TOPICAL (05:41)
[2022-05-02] MEDS: Levothyroxine 75 MCG Tablet PO (05:41)
[2022-05-02] MEDS: Cholecalciferol (VIT D3) 25 MCG TABLET (1,000 UNITS) 50 MCG PO (05:41)
[2022-05-02] MEDS: Sertraline 100 MG Tablet PO (05:41)
[2022-05-02] MEDS: APIXABAN 5 MG TABLET PO ×2 (05:41→17:50)
[2022-05-02 16:00] VITALS: BP 113/50; PULSE 107; RESP 18; TEMP 36.7; O2SAT 92
[2022-05-02] MEDS: Senna/Docusate Sodium 1 Tablet 2 TABLET PO (17:51)
[2022-05-02 20:00] VITALS: PULSE 65; RESP 16; O2SAT 94
[2022-05-02] MEDS: Atorvastatin Calcium 20 MG Tablet PO (20:17)
[2022-05-03] MEDS: Lidocaine 5% Patch 1 PATCH TOPICAL (05:32)
[2022-05-03] MEDS: Senna/Docusate Sodium 1 Tablet 2 TABLET PO ×2 (05:33→18:03)
[2022-05-03] MEDS: Levothyroxine 75 MCG Tablet PO (05:33)
[2022-05-03] MEDS: Cholecalciferol (VIT D3) 25 MCG TABLET (1,000 UNITS) 50 MCG PO (05:33)
[2022-05-03] MEDS: Amiodarone 200 MG Tablet PO (05:33)
[2022-05-03] MEDS: APIXABAN 5 MG TABLET PO ×2 (05:34→18:03)
[2022-05-03] MEDS: Sertraline 100 MG Tablet PO (05:34)
--- NOTE | 2022-05-03 07:02 | NURSING ---
patient c/o of itchy back, back red with rash on upper back that she has been scratching. request for something to help with itchiness to dr medina
[2022-05-03] MEDS: Hydrocortisone 2.5% Crm 1 APPLIC TOPICAL (10:30)
[2022-05-03] MEDS: oxyCODONE 5 MG Tablet PO ×2 (13:48→21:57)
[2022-05-03 14:09] VITALS: BP 118/58; PULSE 60; RESP 16; TEMP 36.5
--- NOTE | 2022-05-03 15:28 | CASEMGMT ---
Social Work BIMS () and PHQ-9 (09/04) completed for MDS assessment. Taylor Ramon MSW ONION TIER
[2022-05-03] MEDS: Atorvastatin Calcium 20 MG Tablet PO (21:57)
[2022-05-04 05:55] VITALS: BP 118/50; PULSE 60
[2022-05-04] MEDS: Cholecalciferol (VIT D3) 25 MCG TABLET (1,000 UNITS) 50 MCG PO (05:56)
[2022-05-04] MEDS: Levothyroxine 75 MCG Tablet PO (05:56)
[2022-05-04] MEDS: APIXABAN 5 MG TABLET PO ×2 (05:56→17:13)
[2022-05-04] MEDS: Amiodarone 200 MG Tablet PO (05:56)
[2022-05-04] MEDS: Sertraline 100 MG Tablet PO (05:56)
[2022-05-04] MEDS: Senna/Docusate Sodium 1 Tablet 2 TABLET PO (05:57)
[2022-05-04] MEDS: traMADol 50 MG Tablet PO (09:19)
[2022-05-04] MEDS: Lidocaine 5% Patch 1 PATCH TOPICAL (10:38)
[2022-05-04 13:55] VITALS: BP 112/52; PULSE 61; RESP 16; TEMP 36.5; O2SAT 93
[2022-05-04] MEDS: Acetaminophen 500 MG Tablet 1000 MG PO (17:15)
[2022-05-04 20:00] VITALS: PULSE 56; RESP 16; O2SAT 92
[2022-05-04] MEDS: oxyCODONE 5 MG Tablet PO (20:38)
[2022-05-04] MEDS: Atorvastatin Calcium 20 MG Tablet PO (20:39)
[2022-05-05] MEDS: Acetaminophen 500 MG Tablet 1000 MG PO (00:09)
[2022-05-05] MEDS: Senna/Docusate Sodium 1 Tablet 2 TABLET PO ×2 (04:56→17:35)
[2022-05-05] MEDS: Lidocaine 5% Patch 1 PATCH TOPICAL (04:56)
[2022-05-05] MEDS: Cholecalciferol (VIT D3) 25 MCG TABLET (1,000 UNITS) 50 MCG PO (04:56)
[2022-05-05] MEDS: Sertraline 100 MG Tablet PO (04:56)
[2022-05-05] MEDS: Amiodarone 200 MG Tablet PO (04:57)
[2022-05-05] MEDS: Levothyroxine 75 MCG Tablet PO (04:57)
[2022-05-05] MEDS: APIXABAN 5 MG TABLET PO ×2 (04:57→17:35)
[2022-05-05 06:00] LABS: Absolute Lymphocyte Count 2.42 X10^3/uL (0.83-4.51); Absolute Neutrophil Count 3.1 X10^3/uL (2.0-7.7); Basophil# 0.06 X10^3/uL; Basophil% 0.9 % (0-1); Eosinophil# 0.17 X10^3/uL; Eosinophils% 2.6 % (0-5); Hematocrit 41.5 % (37-47); Hemoglobin 13.1 g/dL (12.0-15.0); Lymphocyte # 2.42 X10^3/ul (0.83-4.51); Lymphocyte % 36.9 % (19-41); Mean Corp Hgb Conc 31.6 g/dL (32-36); Mean Corpuscular Hgb 31.2 pg (27.0-32.0); Mean Corpuscular Volume 98.8 fL (81-99); Mean Platelet Vol. 10.1 fl (6.2-12.0); Monocyte# 0.76 X10^3/uL; Monocyte% 11.6 % (0-10); NRBC Flagged by Analyzer 0 % (0-5); Neutrophil % 47.4 % (47-70); Platelet Count 237 K/mm3 (150-450); RBC Distribution Width CV 13.7 % (11.6-14.6); RBC Distribution Width SD 49.9 fl (35.1-43.9); White Blood Count 6.6 K/mm3 (4.4-11.0)
[2022-05-05 06:30] LABS: Anion Gap 6 (5-15); BUN 26 mg/dL (7-18); Calcium,Total 8.9 mg/dL (8.5-10.1); Chloride 106 mmol/L (98-107); Creatinine, Serum 1.13 mg/dL (0.55-1.02); EST Glomerular Filtration Rate 49 mL/min (>60); Est Glom Filt Rate - Afr Amer 59 mL/min (>60); Estimated Creatinine Clearance 34.29 ml/min; Glucose 88 mg/dL (74-106); Potassium 4.3 mmol/L (3.5-5.1); Sodium Level 141 mmol/L (136-145)
--- NOTE | 2022-05-05 09:27 | CASEMGMT ---
Social Work IDT met with patient and dtr via conference call for care plan meeting. Discussed patient's progress in PT/OT/SN. Educated to [facility] insurance with NRD 05/07 with [facility] 05/11. Pt is progressing well and anticipating insurance will not approve additional time. Explained insurance will give a 2 day notice and LCD will be 129, DC 05/10. Pt and dtr discussed a few tasks they would like to see improve prior to DC. is very limited with assistance he can provide pt. Pt and dtr agreeable to DC 05/10 though. Offered OP vs HHC therapy. Pt requesting C PT/OT. Provided printed list of skilled HHC agencies with quality and resource data via [employer]. Pt has no DME needs. Dtr to transport. Plan: DC home 05/10, HHC PT/OT, no DME OLAMIDE WhitakerW
[2022-05-05 09:29] VITALS: PULSE 64; RESP 16; O2SAT 96
[2022-05-05] MEDS: Tuberculin,Purif.prot.deriv. 50 TU/ML Vial 0.1 ML ID (11:56)
[2022-05-05] MEDS: traMADol 50 MG Tablet PO (12:02)
[2022-05-05 14:54] VITALS: BP 134/54; PULSE 61; RESP 16; TEMP 36.6; O2SAT 95
[2022-05-05] MEDS: Atorvastatin Calcium 20 MG Tablet PO (20:27)
[2022-05-05] MEDS: oxyCODONE 5 MG Tablet PO (21:46)
[2022-05-06] MEDS: Cholecalciferol (VIT D3) 25 MCG TABLET (1,000 UNITS) 50 MCG PO (06:32)
[2022-05-06] MEDS: Lidocaine 5% Patch 1 PATCH TOPICAL (06:32)
[2022-05-06] MEDS: Amiodarone 200 MG Tablet PO (06:32)
[2022-05-06] MEDS: Sertraline 100 MG Tablet PO (06:32)
[2022-05-06] MEDS: APIXABAN 5 MG TABLET PO ×2 (06:34→17:03)
[2022-05-06] MEDS: Levothyroxine 75 MCG Tablet PO (06:34)
[2022-05-06 06:38] VITALS: BP 136/54; PULSE 60; RESP 16
--- NOTE | 2022-05-06 08:40 | NURSING ---
Motel Clerk Note; MDS for 05/04/2022 complete
[2022-05-06] MEDS: oxyCODONE 5 MG Tablet PO ×2 (09:08→19:43)
[2022-05-06] MEDS: traMADol 50 MG Tablet PO (13:58)
[2022-05-06 15:37] VITALS: BP 105/53; PULSE 59; RESP 16; TEMP 36.8; O2SAT 94
[2022-05-06] MEDS: Senna/Docusate Sodium 1 Tablet 2 TABLET PO (17:03)
[2022-05-06] MEDS: Atorvastatin Calcium 20 MG Tablet PO (19:41)
[2022-05-06 22:09] VITALS: PULSE 63; RESP 16; O2SAT 97
[2022-05-07] MEDS: Levothyroxine 75 MCG Tablet PO (06:10)
[2022-05-07] MEDS: Amiodarone 200 MG Tablet PO (06:10)
[2022-05-07] MEDS: Lidocaine 5% Patch 1 PATCH TOPICAL (06:10)
[2022-05-07] MEDS: Cholecalciferol (VIT D3) 25 MCG TABLET (1,000 UNITS) 50 MCG PO (06:10)
[2022-05-07] MEDS: APIXABAN 5 MG TABLET PO ×2 (06:10→16:13)
[2022-05-07] MEDS: Sertraline 100 MG Tablet PO (06:10)
[2022-05-07 06:15] VITALS: BP 128/55; PULSE 57
--- NOTE | 2022-05-07 12:24 | CASEMGMT ---
Addendum entered by Taylor Ramon 05/10/22 08:16: [facility] Addendum entered by Taylor Ramon 05/07/22 14:53: [facility] does not accept pt's insurance. Second choice is [facility]. Referral made via [facility] Original Note: Social Work Insurance issued LCD 05/09, DC 05/10. Spoke with pt and pt agreeable to DC 05/10. Pt provided preferences for HHC. First choice is [facility]. Referral sent via [facility] for PT/OT. Plan: DC home with 05/10, [facility] PT/OT OLAMIDE Whitaker RESOURCE SPECIALIST TEACHER
--- NOTE | 2022-05-07 13:23 | DS.PCM_ITS ---
Providers Date of Admission: 04/27/22 Primary Care Physician: Dr. Mauricio Barney MD Reason For Visit: BACK PAIN/FALL Diagnosis Discharge Diagnosis (1) Debility: Status: Acute Code(s): R53.81 - Other malaise (2) Left rib fracture: Status: Acute Code(s): S22.32XA - Fracture of one rib, left side, initial encounter for closed fracture (3) Atrial fibrillation: Status: Acute Code(s): I48.91 - Unspecified atrial fibrillation (4) Rheumatoid arthritis: Status: Acute Code(s): M06.9 - Rheumatoid arthritis, unspecified (5) Hypertension: Status: Chronic Code(s): I10 - Essential (primary) hypertension (6) Anxiety: Status: Acute Code(s): F41.9 - Anxiety disorder, unspecified (7) Hypothyroidism: Status: Acute Code(s): E03.9 - Hypothyroidism, unspecified Plan 81 year old female with below past medical history hospitalized for fall, left rib fracture, failed discharge home, admitted to TCU with debility, here for rehabililtation, strengthening, prior to discharge home with . * Debility - PT/OT. * Pain - Tylenol 1000mg q6h prn pain (1-3), Tramadol 50mg q6h prn pain (4-5), Oxycodone 5mg q4h prn pain (6-10), Lidoderm patch topical daily. * Bowel - Miralax 17gm daily, senna/colace 2 tablets bid, Dulcolax 10mg pr x 1 prn, MOM 30ml po x 1 prn. * Adult immunization - Administer pneumonia vaccine, covid19 vaccine, flu vaccine as appropriate. * DVT prophylaxis - Not necessary, on Eliquis. * Atrial fibrillation - Amiodarone 200mg daily, Eliquis 5mg bid. * Hyperlipidemia - Atorvastatin 20mg qhs. * Hypothyroidism - Levothyroxine 75mcg daily. 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 * Vitamin D deficiency - D3 50mcg daily. Medications at Discharge Home Medications sertraline 100 mg tablet 100 mg PO DAILY mood/depression 10/17/14 golimumab 50 mg/0.5 mL subcutaneous pen injector (Simponi) 50 mg IV QMONTH RA 05/07/20 handicap placcard #1 ea 05/07/20 levothyroxine 75 mcg tablet 75 mcg PO DAILY thyroid 02/05/21 ergocalciferol (vitamin D2) 50 mcg (2,000 unit) capsule 50 mcg PO DAILY supplement 07/27/21 atorvastatin 20 mg tablet 20 mg PO QHS cholesterol #90 tabs 09/25/21 Viactiv 1 dose OTHER DAILY supplement 04/27/22 acetaminophen 500 mg tablet 1,000 mg PO Q6H PRN PRN Pain 04/27/22 amiodarone 200 mg tablet 200 mg PO DAILY heart 04/27/22 apixaban 5 mg tablet (Eliquis) 5 mg PO BID blood thinner 04/27/22 lidocaine 5 % topical patch 1 patch topical DAILY 30 days #30 ea 05/07/22 oxycodone 5 mg tablet 5 mg PO Q4H PRN PRN Pain Score 6-10 7 days #42 tabs 05/07/22 polyethylene glycol 3350 17 gram oral powder packet 17 g PO DAILY 30 days #30 ea 05/07/22 sennosides 8.6 mg-docusate sodium 50 mg tablet (Stool Softener-Stimulant Laxative) 2 tab PO BID 30 days #120 tabs 05/07/22 tramadol 50 mg tablet 50 mg PO Q6H PRN PRN Pain Score 4-5 7 days #28 tabs 05/07/22 Hospital Course Operations None Procedures None Summary of Care Provided Minutes Spent on Discharge: 35 Hospital Course: 81 year old female with below past medical history hospitalized for fall, left rib fracture, failed discharge home, admitted to TCU with debility, here for rehabilitation, strengthening, prior to discharge home with . Discharge home with 05/10/2022, [facility] Care PT/OT. Physical Exam Const alert General Appearance: cooperative HEENT normocephalic Eyes PERRL and EOMs intact bilaterally Neck supple, no JVD and no carotid bruits Resp normal respiratory effort, normal air movement and clear to auscultation bilaterally Cardio regular rate and regular rhythm GI normal to inspection, nondistended, normoactive bowel sounds, non-tender and non-distended Extremity normal capillary refill General Extremity: Negative for edema Skin no rashes or lesions noted General Skin Exam: no breakdown Psych affect normal Appearance: appropriate Weight / BMI Weight Weight: 76.204 kg Body Mass Index (BMI) 29.3 ABG / Lab / Microbiology Data Result Diagrams: 05/05/22 05:15 05/05/22 05:15 Microbiology: Microbiology 05/01/22 06:36 Nasal Secretion SARS-CoV-2 Antigen (Rapid) - Final 04/29/22 06:42 Nasal Secretion SARS-CoV-2 Antigen (Rapid) - Final 04/27/22 16:45 Nasal Secretion SARS-CoV-2 Antigen (Rapid) - Final D/C Instructions Discharge Diet: No restrictions Discharge Activity: Return to Normal Activity, May Shower and Use Walker Weight Bearing Status: Weight bearing as tolerated Call your doctor if you observe: Fever of 101 or Higher, Inability to urinate, Inability to have a bowel movement, Shortness of breath, Dizziness, Fainting spells, Swelling in the ankles, Chest pain and Uncontrolled pain Additional Instructions: Discharge home with 05/10/2022, [facility] PT/OT. Meaningful Use Info Meaningful Use Diagnoses (Choose all that apply): None applicable Discharge Plan Admission Admit Date/Time: 04/27/22 16:02 Primary Reason for Your Visit: Debility. Attending Provider: Mac Jaimes Chi Primary Care Provider: Mauricio Barney Instructions Additional Instructions / Restrictions: Discharge home with 05/10/2022, [facility] PT/OT. Discharge Orders/Prescriptions Prescriptions: New polyethylene glycol 3350 17 gram Powder In Packet 17 g PO DAILY 30 Days Qty: 30 0RF lidocaine 5 % Adhesive Patch,Medicated 1 patch topical DAILY 30 Days Qty: 30 0RF Protocol: *Topical Application Instructions APPLICATION INSTRUCTIONS: back pain oxycodone 5 mg Tablet 5 mg PO Q4H PRN PRN (Reason: Pain Score 6-10) 7 Days Qty: 42 0RF sennosides-docusate sodium [Stool Softener-Stimulant Laxat] 8.6-50 mg Tablet 2 tab PO BID 30 Days Qty: 120 0RF tramadol 50 mg Tablet 50 mg PO Q6H PRN PRN (Reason: Pain Score 4-5) 7 Days Qty: 28 0RF Continued Simponi 50 mg/0.5 mL pen injector 50 mg IV QMONTH Rx Instructions: every other month levothyroxine 75 mcg tablet 75 mcg PO DAILY ergocalciferol (vitamin D2) 50 mcg (2,000 unit) capsule 50 mcg PO DAILY sertraline 100 MG tablet 100 mg PO DAILY Label Comments: MOOD/DEPRESSION acetaminophen 500 mg Tablet 1,000 mg PO Q6H PRN PRN (Reason: Pain) Eliquis 5 mg Tablet 5 mg PO BID Viactiv 1 dose OTHER DAILY amiodarone 200 mg tablet 200 mg PO DAILY atorvastatin 20 mg tablet 20 mg PO QHS Qty: 90 3RF Discontinued cranberry 500 mg capsule 500 mg PO DAILY Rx Instructions: administer with meals Sudafed 1 tablet OTHER PRN PRN (Reason: Congestion) Eliquis 2.5 mg tablet 2.5 mg PO DAILY No Action (DME) handicap placcard See Rx Instructions .Route .MEDSUPPLY Qty: 1 0RF Rx Instructions: dx: severe OA expires: 5 years Referrals / Follow Up: Mauricio Barney MD [Primary Care Provider] - Disposition Disposition (needs filled in before D/C Order can be placed): Home Health Service
[2022-05-07 15:57] VITALS: BP 144/67; PULSE 59; RESP 18; TEMP 36.7; O2SAT 95
[2022-05-07] MEDS: oxyCODONE 5 MG Tablet PO ×2 (16:13→22:09)
[2022-05-07 22:00] VITALS: PULSE 60; RESP 16; O2SAT 96
[2022-05-07] MEDS: Atorvastatin Calcium 20 MG Tablet PO (22:06)
[2022-05-08] MEDS: Polyethylene Glycol 3350 17 GM PACKET PO (05:28)
[2022-05-08] MEDS: Senna/Docusate Sodium 1 Tablet 2 TABLET PO (05:29)
[2022-05-08] MEDS: Cholecalciferol (VIT D3) 25 MCG TABLET (1,000 UNITS) 50 MCG PO (05:29)
[2022-05-08] MEDS: Sertraline 100 MG Tablet PO (05:29)
[2022-05-08] MEDS: Amiodarone 200 MG Tablet PO (05:29)
[2022-05-08] MEDS: APIXABAN 5 MG TABLET PO ×2 (05:29→16:42)
[2022-05-08] MEDS: Levothyroxine 75 MCG Tablet PO (05:30)
[2022-05-08] MEDS: Lidocaine 5% Patch 1 PATCH TOPICAL (05:31)
[2022-05-08 15:30] VITALS: BP 141/73; PULSE 56; RESP 18; TEMP 37.1; O2SAT 95
[2022-05-08] MEDS: traMADol 50 MG Tablet PO (18:18)
[2022-05-08] MEDS: Atorvastatin Calcium 20 MG Tablet PO (20:35)
[2022-05-08 20:37] VITALS: PULSE 55; RESP 14; O2SAT 96
[2022-05-09 05:15] VITALS: BP 131/65; PULSE 55
[2022-05-09] MEDS: APIXABAN 5 MG TABLET PO ×2 (05:17→17:15)
[2022-05-09] MEDS: Levothyroxine 75 MCG Tablet PO (05:17)
[2022-05-09] MEDS: Lidocaine 5% Patch 1 PATCH TOPICAL (05:17)
[2022-05-09] MEDS: Cholecalciferol (VIT D3) 25 MCG TABLET (1,000 UNITS) 50 MCG PO (05:17)
[2022-05-09] MEDS: Sertraline 100 MG Tablet PO (05:17)
[2022-05-09] MEDS: Amiodarone 200 MG Tablet PO (05:17)
[2022-05-09 10:17] VITALS: PULSE 78; RESP 16; O2SAT 93
[2022-05-09 16:00] VITALS: BP 120/61; PULSE 55; RESP 16; TEMP 36.6
[2022-05-09] MEDS: Acetaminophen 500 MG Tablet 1000 MG PO (17:16)
[2022-05-09] MEDS: traMADol 50 MG Tablet PO (22:02)
[2022-05-09] MEDS: Atorvastatin Calcium 20 MG Tablet PO (22:02)
[2022-05-10] MEDS: Senna/Docusate Sodium 1 Tablet 2 TABLET PO (06:15)
[2022-05-10] MEDS: Lidocaine 5% Patch 1 PATCH TOPICAL (06:15)
[2022-05-10] MEDS: Cholecalciferol (VIT D3) 25 MCG TABLET (1,000 UNITS) 50 MCG PO (06:16)
[2022-05-10] MEDS: APIXABAN 5 MG TABLET PO (06:16)
[2022-05-10] MEDS: Sertraline 100 MG Tablet PO (06:16)
[2022-05-10] MEDS: Levothyroxine 75 MCG Tablet PO (06:21)
[2022-05-10] MEDS: Amiodarone 200 MG Tablet PO (08:08)
--- NOTE | 2022-05-10 08:58 | CASEMGMT ---
Social Work BIMS ( ) and PHQ-9 (06/07) completed for MDS assessment. Taylor Ramon MSW LEAD PL SQL DEVELOPER
--- NOTE | 2022-05-10 13:54 | MDS.RN ---
Information for the mds was obtained from review of the clinical record, interview of resident, staff, and direct observation of resident's care.
== END 2022-05-10 10:30 | disposition home health service (06) | DRG 561 ==
PROVIDERS: Admitting Provider Family Medicine Geriatric Medicine; PCP Family Medicine; Visit Provider Family Medicine Geriatric Medicine
DX: S22.32XD Fracture of one rib, left side, subsequent encounter for fracture with routine healing (principal); E03.9 Hypothyroidism, unspecified; I48.0 Paroxysmal atrial fibrillation; M06.9 Rheumatoid arthritis, unspecified; F41.9 Anxiety disorder, unspecified; I10 Essential (primary) hypertension; E55.9 Vitamin D deficiency, unspecified; E78.5 Hyperlipidemia, unspecified; W10.9XXD Fall (on) (from) unspecified stairs and steps, subsequent encounter; Z79.899 Other long term (current) drug therapy; Z79.01 Long term (current) use of anticoagulants; Z79.890 Hormone replacement therapy; Z86.718 Personal history of other venous thrombosis and embolism; F32.A Depression, unspecified
CPT/HCPCS: 36415; 80048; 85025; 87426; 87811; 97110; 97116; 97162; 97166; 97530; 97535; 97802

== ENCOUNTER 2023-01-15 10:06 | Emergency (ER) | payer MEDICARE, SELFPAY ==
[2023-01-15 10:06] VITALS: BP 189/78; PULSE 75; RESP 16; TEMP 36.6; O2SAT 94; BMI 34.3
[2023-01-15 10:08] VITALS: O2SAT 86
[2023-01-15 10:10] VITALS: O2SAT 98
--- NOTE | 2023-01-15 10:18 | RAD_ITS ---
INDICATION: trauma EXAMINATION/TECHNIQUE: X-RAY - RIGHT XR Ankle Min 3 Views 3 VIEWS COMPARISON: No relevant prior comparison study available FINDINGS: SOFT TISSUES: Soft tissue swelling. BONES/JOINTS: Oblique displaced fracture of the distal fibula. Transverse displaced fracture of the medial malleolus.. Preservation of the joint space.. No sclerotic or destructive changes observed. RAD/Ankle min 3 Views IMPRESSION: Fractures of the distal tibia and fibula. Electronically Signed: Alexsander De Santiago MD at 11:53 EDT ,
--- NOTE | 2023-01-15 10:20 | RAD_ITS ---
INDICATION: fall EXAMINATION/TECHNIQUE: X-RAY - XR Chest 1 View COMPARISON: Prior study dated: 07/27/2021. FINDINGS: LINES/DEVICES: None. LUNGS: No consolidation, edema or effusion. No pneumothorax. MEDIASTINUM AND CARDIOVASCULAR STRUCTURES: Cardiac silhouette not enlarged. Central airways and mediastinal contour are unremarkable. BONES AND SOFT TISSUES: Unremarkable. RAD/Chest 1 View (Portable) IMPRESSION: No radiographic evidence of acute cardiopulmonary disease. Electronically Signed: Alexsander De Santiago MD at 12:04 EDT ,
--- NOTE | 2023-01-15 10:21 | EKG12_ITS ---
Test Reason : Blood Pressure : / mmHG Vent. Rate : 067 BPM Atrial Rate : 067 BPM P-R Int : 150 ms QRS Dur : 082 ms QT Int : 298 ms P-R-T Axes : 048 026 192 degrees QTc Int : 314 ms Normal sinus rhythm Nonspecific ST and T wave abnormality Abnormal ECG Confirmed by ALEX LOWERY, ISIAH ([id number]), city editor OLGE PIZANO ([id number]) on 01/18/2023 7:40:18 AM Referred By: Confirmed By:ISIAH JOHNSON MD
--- NOTE | 2023-01-15 10:21 | ED.VIS.FALL ---
HPI HPI - Fall History of Present Illness Chief Complaint: Fall Narrative Narrative: Patient presents with right ankle pain after a fall. She was in the bathroom may have stepped in some white spots and tripped. No head injury, no neck pain, no loss consciousness. Her only complaint is right ankle. She is denying any other injury. She is anticoagulated on Eliquis for atrial fibrillation. [facility] Medical History Acute blood loss anemia Cellulitis of left lower extremity Compression fracture of L3 vertebra Depression DVT (deep venous thrombosis) Gastrointestinal bleed GI bleed Hematoma of right lower extremity History of Clostridium difficile Hyperlipidemia Hypothyroidism Immunosuppressed status intermediate current use of anticoagulant Open wound of right buttock with complication 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 Paroxysmal atrial fibrillation Peptic ulcer disease Rheumatoid arthritis Traumatic hematoma of buttock Vitamin D deficiency Home Medications sertraline 100 mg tablet 75 mg PO DAILY mood/depression 10/17/14 [History Last Taken 03/21/18 10:55] golimumab 50 mg/0.5 mL subcutaneous pen injector (Simponi) 50 mg IV QMONTH RA 05/07/20 [History Last Taken Unknown] handicap placcard #1 ea 05/07/20 [Rx Last Taken Unknown] levothyroxine 75 mcg tablet 75 mcg PO DAILY thyroid 02/05/21 [History Last Taken Unknown] ergocalciferol (vitamin D2) 50 mcg (2,000 unit) capsule 50 mcg PO DAILY supplement 07/27/21 [History Last Taken Unknown] atorvastatin 20 mg tablet 20 mg PO QHS cholesterol #90 tabs 09/25/21 [Rx Last Taken Unknown] Viactiv 1 dose OTHER DAILY supplement 04/27/22 [History Last Taken Unknown] acetaminophen 500 mg tablet 1,000 mg PO Q6H PRN PRN Pain 04/27/22 [History Last Taken Unknown] apixaban 5 mg tablet (Eliquis) 5 mg PO BID blood thinner 04/27/22 [History Last Taken Unknown] lidocaine 5 % topical patch 1 patch topical DAILY 30 days #30 ea 05/07/22 [Rx Last Taken Unknown] amiodarone 200 mg tablet 150 mg PO DAILY heart 01/15/23 [History Last Taken Unknown] Allergy/AdvReac Type Severity Reaction Status Date / Time cephalexin monohydrate Allergy Hives Verified 01/15/23 10:19 [From Keflex] ethchlorvynol [From Placidyl] Allergy Unknown Verified 01/15/23 10:19 Penicillins [PCN] Allergy Unknown Verified 01/15/23 10:19 Sulfa (Sulfonamide Allergy Rash Verified 01/15/23 10:19 Antibiotics) sulfamethoxazole Allergy Unknown Verified 01/15/23 10:19 [From Septra] trimethoprim [From Septra] Allergy Unknown Verified 01/15/23 10:19 Family History Father CAD (coronary artery disease) Mother Breast cancer breast Surgical History H/O colectomy H/O shoulder surgery H/O total hysterectomy History of arthroplasty of left knee History of bunionectomy of both great toes History of evacuation of hematoma (03/20/18) History of left heart catheterization (1999) History of right knee joint replacement History of tonsillectomy and adenoidectomy Hx of cholecystectomy surgical debridement left lower extremity (10/2014) Social History household members: spouse Smoking Status: Never smoker alcohol intake: current alcohol intake frequency: holidays/special occasions only Alcohol type: wine substance use type: does not use caffeine: Yes Type: coffee Number of servings: 2 ROS ROS ED ROS Narrative Social: Noncontributory Medications: Reviewed, includes Eliquis Past medical history: Reviewed, includes atrial fibrillation, chronic debility, hyperlipidemia and hypertension Review of systems General: Patient has no head injury or loss of consciousness HEENT: No facial injury Neck: No neck pain Cardiovascular: Patient denies any chest pain or palpitations Chest wall: No chest wall contusions Respiratory: There is no shortness of breath GI: There is no nausea vomiting diarrhea or abdominal pain, no abdominal wall contusions Skin: Anterior ankle laceration which is actively bleeding after I removed the dressing. It is presumed to be open. Neurological: Patient has no memory loss, confusion, or any focal weakness Psychiatric: No recent behavioral changes Back: No back pain, no problems with ambulation Musculoskeletal: As in HPI EXAM Physical Exam Narrative Exam Narrative: Physical exam Vitals reviewed General: Does not appear in significant distress, no obvious injuries HEENT: No facial injury Head: No head injury Eyes: Extraocular movements intact Neck: No C-spine tenderness with full range of motion Heart: Regular rate normal pulses Chest wall: No chest wall pain Lungs clear lungs bilaterally with normal inspiration and expiration without tachypnea GI: Abdomen is soft and nontender there is no mass no guarding no abdominal wall contusion : Stable pelvis Musculoskeletal: Obvious deformity of the. Right ankle with swelling. PT pulses is intact. There is an anterior abrasion and laceration which is presumed to be an open fracture. Skin: As above Neurological: Patient is alert and oriented with no focal deficits Const Vital Signs: 01/15/23 10:06 01/15/23 10:08 01/15/23 10:10 Temperature 98 F Temperature Source Temporal Pulse Rate 75 Respiratory Rate 16 Blood Pressure 189/78 H Blood Pressure Mean 115 Pulse Ox 94 86 98 Oxygen Delivery Method Room Air Room Air Nasal Cannula Oxygen Flow Rate (L/min) 2 MDM MDM MDM Narrative Medical decision making narrative: Patient is found to have an open bimalleolar fracture, because of this I called Ortho at our institution and they deferred to a trauma center. I talked to [facility] for transfer. At this time I do not see a reason to do a CT of the head or C-spine, blood work is done in the ED and is unremarkable. Patient is allergic to penicillins therefore vancomycin was given. Patient also received analgesics. She continues to remain stable and I will transfer in stable condition Chest x-ray read by me as normal Ankle x-ray read by me as bimalleolar fracture Lab Data Labs: Laboratory Results - last 24 hr 01/15/23 10:30 WBC 6.7 RBC 4.15 L Hgb 13.5 Hct 43.0 MCV 103.6 H MCH 32.5 H MCHC 31.4 L RDW Std Deviation 50.3 H RDW Coeff of Jessica 13.2 Plt Count 242 MPV 9.3 Immature Gran % (Auto) 0.600 Neut % (Auto) 52.4 Lymph % (Auto) 35.8 Mcduffie % (Auto) 9.3 Eos % (Auto) 1.3 Baso % (Auto) 0.6 Absolute Neuts (auto) 3.5 Absolute Lymphs (auto) 2.40 Nucleated RBC % 0 PT 15.5 H INR 1.2 Sodium 143 Potassium 3.8 Chloride 112 H Carbon Dioxide 27.0 Anion Gap 4 L BUN 17 Creatinine 1.01 Estim Creat Clear Calc 36.14 Est GFR (MDRD) Af Amer 68 Est GFR (MDRD) Non-Af 56 L BUN/Creatinine Ratio 16.8 Glucose 99 Calcium 8.6 Total Bilirubin 0.50 AST 12 L ALT 19 Alkaline Phosphatase 45 Total Protein 6.7 Albumin 3.3 Globulin 3.4 Albumin/Globulin Ratio 1.0 Procedures Other Procedures Procedure(s): Right posterior leg splint, verbal consent, I used Ortho-Glass and Lb wrap's. Patient tolerated procedure well. Discharge Plan Triage Chief Complaint: Fall ED Provider: Rodrigo Keene Dx/Rx/DC Orders Clinical Impression: History of atrial fibrillation, Fall, Open bimalleolar fracture of right ankle Prescriptions: No Action Simponi 50 mg/0.5 mL pen injector 50 mg IV QMONTH Rx Instructions: every other month (DME) handicap placcard See Rx Instructions .Route .MEDSUPPLY Qty: 1 0RF Rx Instructions: dx: severe OA expires: 5 years levothyroxine 75 mcg tablet 75 mcg PO DAILY ergocalciferol (vitamin D2) 50 mcg (2,000 unit) capsule 50 mcg PO DAILY sertraline 100 MG tablet 75 mg PO DAILY Patient Comments: MOOD/DEPRESSION acetaminophen 500 mg Tablet 1,000 mg PO Q6H PRN PRN (Reason: Pain) Eliquis 5 mg Tablet 5 mg PO BID Viactiv 1 dose OTHER DAILY lidocaine 5 % Adhesive Patch,Medicated 1 patch topical DAILY 30 Days Qty: 30 0RF Protocol: *Topical Application Instructions APPLICATION INSTRUCTIONS: back pain amiodarone 200 mg tablet 150 mg PO DAILY atorvastatin 20 mg tablet 20 mg PO QHS Qty: 90 3RF Primary Care Provider: Mauricio Barney Referrals: Mauricio Barney MD [Primary Care Provider] - Disposition Disposition: DC/Tx to Another Type of HCF
[2023-01-15] MEDS: Morphine 4 MG/ML Syringe IV ×2 (10:29→12:06)
[2023-01-15 10:41] LABS: Absolute Neutrophil Count 3.5 X10^3/uL (2.0-7.7); Basophil# 0.04 X10^3/uL; Basophil% 0.6 % (0-1); Eosinophil# 0.09 X10^3/uL; Eosinophils% 1.3 % (0-5); Hemoglobin 13.5 g/dL (12.0-15.0); Lymphocyte % 35.8 % (19-41); Mean Corp Hgb Conc 31.4 g/dL (32-36); Mean Corpuscular Hgb 32.5 pg (27.0-32.0); Mean Corpuscular Volume 103.6 fL (81-99); Mean Platelet Vol. 9.3 fl (6.2-12.0); Monocyte# 0.62 X10^3/uL; Monocyte% 9.3 % (0-10); NRBC Flagged by Analyzer 0 % (0-5); Neutrophil # 3.51 X10^3/uL (2.7-7.7); Neutrophil % 52.4 % (47-70); Platelet Count 242 K/mm3 (150-450); RBC Distribution Width CV 13.2 % (11.6-14.6); RBC Distribution Width SD 50.3 fl (35.1-43.9); Red Blood Count 4.15 M/mm3 (4.2-5.4); White Blood Count 6.7 K/mm3 (4.4-11.0)
[2023-01-15 10:50] LABS: International Normalized Ratio 1.2; Prothrombin Time (Protime)PT. 15.5 SECONDS (11.7-14.9)
[2023-01-15 10:58] LABS: AST(SGOT) 12 U/L (15-37); Alanine Aminotransfer ALT/SGPT 19 U/L (13-56); Albumin, Serum 3.3 g/dL (3.2-5.0); Alkaline Phosphatase 45 U/L (45-117); Anion Gap 4 (5-15); BUN 17 mg/dL (7-18); BUN/Creat Ratio 16.8 RATIO (10-20); Calcium,Total 8.6 mg/dL (8.5-10.1); Chloride 112 mmol/L (98-107); Creatinine, Serum 1.01 mg/dL (0.55-1.02); EST Glomerular Filtration Rate 56 mL/min (>60); Est Glom Filt Rate - Afr Amer 68 mL/min (>60); Estimated Creatinine Clearance 36.14 ml/min; Globulin 3.4 g/dL (2.2-4.2); Glucose 99 mg/dL (74-106); Potassium 3.8 mmol/L (3.5-5.1); Protein, Total 6.7 g/dL (6.4-8.2); Sodium Level 143 mmol/L (136-145)
[2023-01-15 11:57] VITALS: BP 147/73; PULSE 63; RESP 14; O2SAT 97
== END 2023-01-15 12:14 | disposition other institution (70) ==
PROVIDERS: Emergency Provider Emergency Medicine; PCP Family Medicine; Visit Provider Emergency Medicine
DX: S82.841A Displaced bimalleolar fracture of right lower leg, initial encounter for closed fracture (principal); I48.0 Paroxysmal atrial fibrillation; E78.5 Hyperlipidemia, unspecified; I10 Essential (primary) hypertension; E55.9 Vitamin D deficiency, unspecified; F32.A Depression, unspecified; Z79.899 Other long term (current) drug therapy; Z79.01 Long term (current) use of anticoagulants; W19.XXXA Unspecified fall, initial encounter; Z86.718 Personal history of other venous thrombosis and embolism
CPT/HCPCS: 71045; 73610; 80053; 85025; 85610; 93005; 96374; 96376; 99285; J7050; A4216

== ENCOUNTER 2023-01-18 19:35 | Inpatient (IN) | payer MEDICARE, SELFPAY ==
--- NOTE | 2023-01-18 19:51 | PCM.HP.STD ---
HPI - General General Date of Admission: 01/18/23 Date of Service: 01/19/23 Chief Complaint: Here for rehabilitation. HPI Narrative 01/15/2023 BRADLEY GILMORE, is a 82 Female who presents to [facility] Emergency Department with fall. Fall, right ankle pain, in bathroom, stepped on wet spot, tripped. No head injury, no loss of consciousness, only right ankle pain, on Eliquis for atrial fibrillation. X-ray shows open right bimalleolar fracture. Transfer to [facility]. 01/15/2023 Admit to [facility]. 01/16/2023 Dr. Nelson performed right ORIF bimalleolar ankle fracture, irrigation and debridement of open fracture and/or dislocation, skin, subcutaneous tissue, fascia, muscle, and bone. 01/17/2023 Postoperative course uncomplicated. Urine culture grew normal urogenital kristan. 01/18/2023 Admit to TCU with debility, here for rehabilitation, strengthening, prior to discharge home with . [facility] Medical History (Updated 01/18/23 @ 19:[address] 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 Open wound of right buttock with complication 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 Paroxysmal atrial fibrillation Peptic ulcer disease Rheumatoid arthritis Traumatic hematoma of buttock Vitamin D deficiency Home Medications sertraline 100 mg tablet 75 mg PO DAILY mood/depression 10/17/14 [History Last Taken 03/21/18 10:55] golimumab 50 mg/0.5 mL subcutaneous pen injector (Simponi) 50 mg IV QMONTH RA 05/07/20 [History Last Taken Unknown] handicap placcard #1 ea 05/07/20 [Rx Last Taken Unknown] levothyroxine 75 mcg tablet 75 mcg PO DAILY thyroid 02/05/21 [History Last Taken Unknown] ergocalciferol (vitamin D2) 50 mcg (2,000 unit) capsule 50 mcg PO DAILY supplement 07/27/21 [History Last Taken Unknown] atorvastatin 20 mg tablet 20 mg PO QHS cholesterol #90 tabs 09/25/21 [Rx Last Taken Unknown] Viactiv 1 dose OTHER DAILY supplement 04/27/22 [History Last Taken Unknown] acetaminophen 500 mg tablet 500 mg PO Q8H PRN PRN Pain 04/27/22 [History Last Taken Unknown] apixaban 5 mg tablet (Eliquis) 5 mg PO BID blood thinner 04/27/22 [History Last Taken Unknown] lidocaine 5 % topical patch 1 patch topical DAILY 30 days #30 ea 05/07/22 [Rx Last Taken Unknown] amiodarone 200 mg tablet 100 mg PO DAILY heart 01/15/23 [History Last Taken 01/18/23] ciprofloxacin HCl 500 mg tablet 500 mg PO BID infection 01/18/23 [History Last Taken 01/18/23] cranberry extract 200 mg capsule 200 mg PO DAILY supp 01/18/23 [History Last Taken Unknown] oxycodone 5 mg tablet 5 mg PO Q6H PRN pain 01/18/23 [History Last Taken Unknown] Allergy/AdvReac Type Severity Reaction Status Date / Time cephalexin monohydrate Allergy Hives Verified 01/15/23 10:19 [From Keflex] ethchlorvynol [From Placidyl] Allergy Unknown Verified 01/15/23 10:19 Penicillins [PCN] Allergy Unknown Verified 01/15/23 10:19 Sulfa (Sulfonamide Allergy Rash Verified 01/15/23 10:19 Antibiotics) sulfamethoxazole Allergy Unknown Verified 01/15/23 10:19 [From Septra] trimethoprim [From Septra] Allergy Unknown Verified 01/15/23 10:19 Family History Father CAD (coronary artery disease) Mother Breast cancer breast Surgical History H/O colectomy H/O shoulder surgery H/O total hysterectomy History of arthroplasty of left knee History of bunionectomy of both great toes History of evacuation of hematoma (03/20/18) History of left heart catheterization (1999) History of right knee joint replacement History of tonsillectomy and adenoidectomy Hx of cholecystectomy surgical debridement left lower extremity (10/2014) Social History household members: spouse Smoking Status: Never smoker alcohol intake: current alcohol intake frequency: holidays/special occasions only Alcohol type: wine substance use type: does not use caffeine: Yes Type: coffee Number of servings: 2 ROS Constitutional Constitutional: Denies chills, fever(s) or weight gain ENT HEENT: Denies headache(s), nasal congestion or nasal discharge Cardiovascular Cardiovascular: Denies chest pain or palpitations Respiratory/Chest Respiratory/Chest: Denies cough, excessive phlegm production or shortness of breath with exertion Gastrointestinal Gastrointestinal: Denies abdominal pain, nausea or vomiting Genitourinary Genitourinary: Denies dysuria Musculoskeletal Musculoskeletal: Denies joint pain or joint swelling Integumentary Integumentary: Denies rash or wounds Neurologic Neurologic: Denies focal weakness, numbness or tingling Psychiatric Psychiatric: Denies anxiety, auditory hallucinations, depression, homicidal ideation or suicidal ideation Physical Exam Const alert General Appearance: cooperative HEENT normocephalic Eyes PERRL and EOMs intact bilaterally Neck supple, no JVD and no carotid bruits Resp normal respiratory effort, normal air movement and clear to auscultation bilaterally Cardio regular rate and regular rhythm GI normal to inspection, nondistended, normoactive bowel sounds, non-tender and non-distended Extremity normal capillary refill Extremity Narrative: Right lower extremity splint. General Extremity: Negative for edema Skin no rashes or lesions noted General Skin Exam: no breakdown Psych affect normal Appearance: appropriate Results Lab / Micro Data 01/19/23 05:24 01/19/23 05:24 Assessment & Plan Assessment/Plan (1) Debility: (2) Fall: (3) Open bimalleolar fracture of right ankle: (4) Atrial fibrillation: (5) Hyperlipidemia: QUALIFIERS: Hyperlipidemia type: pure hypercholesterolemia Qualified Code(s): E78.00 - Pure hypercholesterolemia, unspecified; E78.0 - Pure hypercholesterolemia (6) Hypothyroidism: (7) Depression: (8) Vitamin D deficiency: (9) Rheumatoid arthritis: PLAN: Plan 82 year old female with below past medical history hospitalized for open right bimalleolar fracture, underwent ORIF right ankle fracutre 01/16/2023, admitted to TCU with debility, here for rehabilitation, strengthening, prior to discharge home with . Debility - PT/OT. Pain - Tylenol 1000mg q8, Tramadol 50mg q6h prn pain (1-5), Oxycodone 5mg q4h prn pain (6-10) Bowel - senna/colace 2 tablets bid, Magnesium citrate 300ml daily prn. Adult immunization - Administer pneumonia vaccine, covid19 vaccine, flu vaccine as appropriate. DVT prophylaxis - on Eliquis. Atrial fibrillation - Amiodarone 100mg daily, Eliquis 5mg bid. Hyperlipidemia - Atorvastatin 20mg qhs. Vitamin D deficiency - D3 25mcg daily. Urinary tract infection - Cipro 500mg bid thru 01/23/2023. Hypothyroidism - Levothyroxine 75mcg daily. 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
[2023-01-18 20:12] VITALS: BP 156/57; PULSE 58; RESP 18; TEMP 36.4; O2SAT 91; BMI 32.4
[2023-01-18] MEDS: APIXABAN 5 MG TABLET PO (21:09)
[2023-01-18] MEDS: oxyCODONE 5 MG Tablet PO (21:09)
[2023-01-18] MEDS: Sertraline 50 MG Tablet 75 MG PO (21:10)
[2023-01-18] MEDS: Atorvastatin Calcium 20 MG Tablet PO (21:10)
[2023-01-18] MEDS: Acetaminophen 500 MG Tablet 1000 MG PO (22:15)
[2023-01-18] MEDS: Senna/Docusate Sodium 1 Tablet 2 TABLET PO (22:16)
[2023-01-19] MEDS: oxyCODONE 5 MG Tablet PO ×4 (01:05→22:37)
[2023-01-19] MEDS: Acetaminophen 500 MG Tablet 1000 MG PO ×3 (05:24→22:34)
[2023-01-19] MEDS: Ciprofloxacin 500 MG Tablet PO ×2 (05:25→16:39)
[2023-01-19] MEDS: Levothyroxine 75 MCG Tablet PO (05:25)
[2023-01-19 05:44] LABS: Absolute Lymphocyte Count 1.63 X10^3/uL (0.83-4.51); Absolute Neutrophil Count 3.6 X10^3/uL (2.0-7.7); Basophil# 0.05 X10^3/uL; Basophil% 0.8 % (0-1); Eosinophil# 0.17 X10^3/uL; Eosinophils% 2.7 % (0-5); Hemoglobin 10.1 g/dL (12.0-15.0); Lymphocyte # 1.63 X10^3/ul (0.83-4.51); Mean Corp Hgb Conc 30.6 g/dL (32-36); Mean Corpuscular Hgb 32.2 pg (27.0-32.0); Mean Corpuscular Volume 105.1 fL (81-99); Mean Platelet Vol. 9.9 fl (6.2-12.0); Monocyte# 0.79 X10^3/uL; Monocyte% 12.6 % (0-10); NRBC Flagged by Analyzer 0 % (0-5); Neutrophil # 3.57 X10^3/uL (2.7-7.7); Neutrophil % 57.1 % (47-70); Platelet Count 223 K/mm3 (150-450); RBC Distribution Width CV 13.1 % (11.6-14.6); RBC Distribution Width SD 49.5 fl (35.1-43.9); Red Blood Count 3.14 M/mm3 (4.2-5.4); White Blood Count 6.3 K/mm3 (4.4-11.0)
[2023-01-19 06:36] LABS: Anion Gap 1 (5-15); BUN 14 mg/dL (7-18); BUN/Creat Ratio 17.5 RATIO (10-20); Calcium,Total 8.7 mg/dL (8.5-10.1); Chloride 106 mmol/L (98-107); EST Glomerular Filtration Rate 73 mL/min (>60); Est Glom Filt Rate - Afr Amer 89 mL/min (>60); Estimated Creatinine Clearance 47.63 ml/min; Glucose 102 mg/dL (74-106); Potassium 4.6 mmol/L (3.5-5.1); Sodium Level 141 mmol/L (136-145)
[2023-01-19] MEDS: Cholecalciferol (VIT D3) 25 MCG TABLET (1,000 UNITS) 50 MCG PO (09:01)
[2023-01-19] MEDS: APIXABAN 5 MG TABLET PO ×2 (09:02→22:34)
[2023-01-19] MEDS: Amiodarone 200 MG Tablet 100 MG PO (09:02)
[2023-01-19] MEDS: Senna/Docusate Sodium 1 Tablet 2 TABLET PO ×2 (09:03→22:34)
[2023-01-19] MEDS: Sertraline 50 MG Tablet 75 MG PO (09:04)
[2023-01-19] MEDS: Petrolatum 33% Tube 1 APPLIC TOPICAL ×2 (09:10→22:44)
--- NOTE | 2023-01-19 09:13 | PHA.CONS_ITS ---
Documented by User: Garry Cotton 01/19/23 09:37 TCU RX Drug Regimen Review Subjective/Objective Subjective/Objective: Subjective: 82 year old female with /below past medical history hospitalized for open right bimalleolar fracture, underwent ORIF/ right ankle fracutre 01/16/2023, admitted to TCU with debility, here for rehabilitation, strengthening, prior to discharge home with . Objective: Allergies cephalexin monohydrate [From Keflex] Allergy (Verified 01/15/23 10:19) Hives ethchlorvynol [From Placidyl] Allergy (Verified 01/15/23 10:19) Unknown Penicillins [PCN] Allergy (Verified 01/15/23 10:19) Unknown Sulfa (Sulfonamide Antibiotics) Allergy (Verified 01/15/23 10:19) Rash sulfamethoxazole [From Septra] Allergy (Verified 01/15/23 10:19) Unknown trimethoprim [From Septra] Allergy (Verified 01/15/23 10:19) Unknown Current Medications Generic Name Dose Route Start Last Admin Trade Name Sudheer PRN Reason Stop Dose Admin Acetaminophen 1,000 mg 01/18/23 22:00 01/19/23 05:24 Acetaminophen 500 Mg Tablet PO 1,000 mg Q8 ERIK Administration Amiodarone HCl 100 mg 01/19/23 10:00 01/19/23 09:02 Amiodarone 200 Mg Tablet PO 100 mg DAILY ERIK Administration Apixaban 5 mg 01/18/23 22:00 01/19/23 09:02 Apixaban 5 Mg Tablet PO 5 mg BID ERIK Administration Atorvastatin Calcium 20 mg 01/18/23 22:00 01/18/23 21:10 Atorvastatin Calcium 20 Mg Tablet PO 20 mg QHS ERIK Administration Calamine/Phenol 1 applic 01/19/23 06:33 Menthol/Lanolin/Calamine/Znox 113 Gm Tube TOPICAL BID [facility] Protocol Cholecalciferol 50 mcg 01/19/23 08:00 01/19/23 09:01 Cholecalciferol (Vit D3) 25 Mcg Tablet (1,000 Units) PO 50 mcg DAILYCM ERIK Administration Ciprofloxacin HCl 500 mg 01/19/23 06:00 01/19/23 05:25 Ciprofloxacin 500 Mg Tablet PO 01/23/23 18:01 500 mg BID@0600,1800 ERIK Administration Levothyroxine Sodium 75 mcg 01/19/23 06:00 01/19/23 05:25 Levothyroxine 75 Mcg Tablet PO 75 mcg DAILY@0600 ERIK Administration Magnesium Citrate 300 ml 01/18/23 21:30 Magnesium Citrate 300 Ml PO DAILY PRN Constipation Miconazole Nitrate 1 applic 01/19/23 06:33 Miconazole Nitrate 43 Gm Bottle TOPICAL BID [facility] Protocol Multi-Ingredient Cream 1 applic 01/19/23 06:31 Petrolatum 33% Tube TOPICAL BID [facility] Protocol Oxycodone HCl 5 mg 01/18/23 21:30 01/19/23 09:07 Oxycodone 5 Mg Tablet PO 5 mg Q4H PRN PRN Administration Pain Score 6-10 Senna/Docusate Sodium 2 tablet 01/18/23 22:00 01/19/23 09:03 Senna/Docusate Sodium 1 Tablet PO 2 tablet BID ERIK Administration Sertraline HCl 75 mg 01/18/23 20:15 01/19/23 09:04 Sertraline 50 Mg Tablet PO 75 mg DAILY ERIK Administration Sodium Chloride 10 - 40 ml 01/18/23 20:27 0.9% Saline Lock 10 Ml Syringe IV UD PRN SALINE FLUSH Tramadol HCl 50 mg 01/18/23 21:29 Tramadol 50 Mg Tablet PO Q6H PRN PRN Pain Score 1-5 Tuberculin PPD 0.1 ml 01/26/23 10:00 Tuberculin,Purif.Prot.Deriv. 50 Tu/Ml Vial ID 01/26/23 10:01 X1 ONE Tuberculin PPD 0.1 ml 01/19/23 10:00 Tuberculin,Purif.Prot.Deriv. 50 Tu/Ml Vial ID 01/19/23 10:01 X1 ONE Problem List (Updated 01/18/23 @ 19:[address] Mac Jaimes MD) Vitamin D deficiency (Acute) Depression (Acute) Open bimalleolar fracture of right ankle (Acute) Fall (Acute) Hypothyroidism (Acute) Rheumatoid arthritis (Acute) Atrial fibrillation (Acute) Debility (Acute) Hyperlipidemia (Chronic) Vital Signs Temp Pulse Resp BP Pulse Ox O2 Del Method 97.6 F L 58 L 18 156/57 H 91 Room Air 01/18/23 20:12 01/18/23 20:12 01/18/23 20:12 01/18/23 20:12 01/18/23 20:12 01/18/23 20:12 Oxygen Delivery Method Room Air Weight: 85.8 kg Body Mass Index (BMI) 32.4 Sodium 141 mmol/L (136-145) 01/19/23 05:24 Potassium 4.6 mmol/L (3.5-5.1) 01/19/23 05:24 Chloride 106 mmol/L (98-107) 01/19/23 05:24 Carbon Dioxide 34.0 mmol/L (21.0-32.0) H 01/19/23 05:24 Anion Gap 1 (5-15) L 01/19/23 05:24 BUN 14 mg/dL (7-18) 01/19/23 05:24 Creatinine 0.80 mg/dL (0.55-1.02) 01/19/23 05:24 Est GFR (MDRD) Af Amer 89 mL/min (>60) 01/19/23 05:24 Est GFR (MDRD) Non-Af 73 mL/min (>60) 01/19/23 05:24 BUN/Creatinine Ratio 17.5 RATIO (10-20) 01/19/23 05:24 Glucose 102 mg/dL (74-106) 01/19/23 05:24 Assessment/Plan: 1. Pain: acetaminophen 1000 mg PO Q8H, tramadol 50 mg Q6H PRN pain (1-5), oxycodone 5 mg PO Q4H PRN pain (6-10). The patient has used #2 PRN doses of oxycodone to date for pain scores 7-8/10 which has seemed to alleviate her pain. The patient has not used any PRN doses of tramadol to date. Please continue to monitor LFTs (AST/ALT = 12/19 U/L on 01/15/23), for constipation, dizziness/drowsiness, ataxia/syncope/falls (oxycodone/tramadol Beer's criteria), renal function (serum creatinine = 0.80 mg/dL with creatinine clearance ~ 48 on 01/19/23), and for seizures. 2. Bowel: senna/docusate 2 tablets PO BID, magnesium citrate 300 mL PO daily PRN constipation. The patient has not required any PRN doses of magnesium citrate this admission, and does not have a bowel movement documented yet this admission. Please continue to monitor for PRN medication usage, for constipation and for diarrhea. 3.Atrial fibrillation: amiodarone 100 mg PO daily, apixaban 5 mg PO BID. Please continue to monitor for heart palpitations, heart rate (recent range = 58-75 beats/min), and for other s/s that the patient is in atrial fibrillation, thyroid function tests (TSH = 1.95 uIU/mL on 12/11/19, T4 = 12.4 ug/dL on 12/11/19), LFTs (AST/ALT = 12/19 U/L on 01/15/23), for pulmonary toxicity by chest x-ray (most recent chest x-ray was 01/15/23), for s/s of stroke, for bleeding/excessive bruising, hemoglobin levels (Hgb = 10.1 g/dL on 01/19/23), platelet counts (PLT = 223 K/mm3 on 01/19/23), and serum creatinine (serum creatinine = 0.80 mg/dL on 01/19/23). 4. Urinary tract infection: ciprofloxacin 500 mg PO BID through 01/23/23. Please continue to monitor for s/s of UTI resolution, for fever/chills (recent temps = 97.6-98 F), WBC count (WBC = 6.3 K/mm3 on 01/19/23), for s/s of tendon issues that could indicate tendon rupture, for altered mental status, blood sugars (recent range = 99-102 mg/dL), for diarrhea that could indicate clostridium difficile infection, LFTs (AST/ALT = 12/19 U/L on 01/15/23), and for myopathy. 5. Hyperlipidemia: atorvastatin 20 mg PO daily. Please continue to monitor for myopathies, LFTs (AST/ALT = 12/19 U/L on 01/15/23), and lipid levels (cholesterol = 154 mg/dL on 12/11/19, LDL = 79 mg/dL on 12/11/19). Please consider re-ordering lipid levels as the patient does not have lipid levels within last 3 years). 6. Hypothyroidism: Levothyroxine 75 mcg PO daily. Please continue to monitor for s/s of hypo/hyperthyroidism, and thyroid function tests (TSH = 1.95 uIU/mL on 12/11/19, T4 = 12.4 ug/dL on 12/11/19). Please continue re-ordering thyroid function tests as the patient does not have levels for > 3 years, and remains on amiodarone as well. 7. Skin irritation/tinea corporis: calmoseptine 1 application topically BID, mi conazole nitrate powder 1 application topically BID, Eucerin cream 1 application topically BID. Please continue to monitor for skin irritation, skin integrity, and for resolution of tinea corporis. 8. Vitamin D deficiency: cholecalciferol 25 mcg PO daily. Please continue to monitor for s/s of vitamin D deficiency as well as vitamin D levels to assess for repletion status (no vitamin D level available on chart). Please consider ordering a vitamin D level to assess deficiency status. Assessment/Plan for indications treated with psychotropic medications: 1. Depression: sertraline 75 mg PO daily. Please see provider note regarding stable long-term therapy, GDR not recommended. Please continue to monitor for SI, depression, sodium levels (Na = 141 mmol/L on 01/19/23), for diarrhea, nausea, dizziness, and for s/s of serotonin syndrome. Medical chart and medication regimen reviewed. The following medication irregularities or issues were identified: 1. Hyperlipidemia: atorvastatin 20 mg PO daily. Please consider re-ordering lipid levels as the patient does not have lipid levels within last 3 years). 2. Hypothyroidism: Levothyroxine 75 mcg PO daily. Please continue re-ordering thyroid function tests as the patient does not have levels for > 3 years, and remains on amiodarone as well. 3. Vitamin D deficiency: cholecalciferol 25 mcg PO daily. Please consider ordering a vitamin D level to assess deficiency status. Date Date of Note:: 01/19/23 Documented by User: Dr. Mac Jaimes MD 01/19/23 09:50 TCU RX Drug Regimen Review Provider Comments Provider responsibility Provider Comments to Recommendations by Pharmacy: Agree
[2023-01-19] MEDS: Tuberculin,Purif.prot.deriv. 50 TU/ML Vial 0.1 ML ID (09:15)
[2023-01-19] MEDS: 0.9% Saline Lock 10 ML Syringe IV (09:17)
[2023-01-19 09:21] VITALS: BP 121/45; PULSE 57
--- NOTE | 2023-01-19 12:50 | CASEMGMT ---
Social Work Spoke with pt to complete initial assessment. Pt known to this worker from previous stay. SW confirmed no changes to assessment. Discussed code status and pt confirms full code. SW verified advanced directives and contacts, but pt states has own health issues and wants Danisha borrego, to primary contact to call during stay. Pt would also like POA documents updated to reflect a change in agents and contact information for the children. SW agreed to complete prior to DC as time allows. SW phoned dtrDanisha, to get updated contact information of siblings. Dtr provided. Dtr stated the plan for family to move into pt's home to help pt and , looking into getting a stair lift for home. Dtr also inquired about SNF stay. SW educated to pricing and part B therapies with the potential of skilled services once WBS is lifted. Dtr noted she will have discussion with parents on DC plan. SW educated to pt and dtr on [facility] insurance with NRD 01/20, continued stay is not guaranteed and will not approve for all 6 weeks of NWBS for pt. Both expressed understanding. SW will continue to follow for DC planning. Taylor Ramon, CLIENT SERVICES VICE PRESIDENT OUTSIDE DEALER SALES REPRESENTATIVE
[2023-01-19 13:27] VITALS: BP 132/53; PULSE 63; RESP 16; TEMP 36.1; O2SAT 95
[2023-01-19] MEDS: Menthol/Lanolin/Calamine/Znox 113 GM Tube 1 APPLIC TOPICAL ×2 (13:30→20:16)
[2023-01-19 20:15] VITALS: PULSE 66; RESP 18; O2SAT 93
[2023-01-19] MEDS: Miconazole Nitrate 43 GM Bottle 1 APPLIC TOPICAL (20:15)
[2023-01-19] MEDS: Atorvastatin Calcium 20 MG Tablet PO (22:34)
[2023-01-20] MEDS: oxyCODONE 5 MG Tablet PO ×3 (05:23→20:59)
[2023-01-20] MEDS: Levothyroxine 75 MCG Tablet PO (05:23)
[2023-01-20] MEDS: Acetaminophen 500 MG Tablet 1000 MG PO ×3 (05:23→21:00)
[2023-01-20] MEDS: Ciprofloxacin 500 MG Tablet PO ×2 (05:23→17:14)
[2023-01-20 05:50] LABS: Hematocrit 32.9 % (37-47); Hemoglobin 10.4 g/dL (12.0-15.0)
[2023-01-20] MEDS: Sertraline 50 MG Tablet 75 MG PO (08:05)
[2023-01-20] MEDS: Senna/Docusate Sodium 1 Tablet 2 TABLET PO ×2 (08:05→20:59)
[2023-01-20] MEDS: APIXABAN 5 MG TABLET PO ×2 (08:05→20:59)
[2023-01-20] MEDS: Cholecalciferol (VIT D3) 25 MCG TABLET (1,000 UNITS) 50 MCG PO (08:06)
[2023-01-20] MEDS: Petrolatum 33% Tube 1 APPLIC TOPICAL ×2 (08:12→21:03)
[2023-01-20 08:17] VITALS: BP 91/49; PULSE 65
[2023-01-20] MEDS: Miconazole Nitrate 43 GM Bottle 1 APPLIC TOPICAL ×2 (09:26→21:01)
[2023-01-20] MEDS: Menthol/Lanolin/Calamine/Znox 113 GM Tube 1 APPLIC TOPICAL ×2 (09:26→21:01)
[2023-01-20] MEDS: Amiodarone 200 MG Tablet 100 MG PO (09:28)
[2023-01-20 09:30] VITALS: BP 111/60; PULSE 83
[2023-01-20 13:15] VITALS: BP 117/48; PULSE 72; RESP 16; TEMP 36; O2SAT 95
--- NOTE | 2023-01-20 16:03 | CHAPLAIN ---
Type of Pastoral Visit _x__ Initial Visit ___ Follow-up Visit ___ On-call Visit ___ General Patient Visit ___ Spiritual Assessment ___ Family Conference ___ Bereavement ___ Rapid Response ___ Code Blue ___ Other (describe below) Pastoral Care Referral From _x__ Patient ___ Family ___ Nurse ___ Physician ___ Food Safety Coordinator ___ Tool Pusher ___ Other (describe below) Sacrament/Intervention _x__ Active listening ___ Anointing ___ Advent ___ Bereavement ___ Communion ___ Alva exploration ___ ___ Life review _x__ Prayer ___ Reconciliation ___ Sacrament of Sick _x__ Supportive presence ___ Wedding ___ Other (describe below) Pastoral Comments patient talks mostly about the changes coming to when she goes home and states that daughter and her family will move in with her and spouse; pt doesn't want children to alter lives so much but we can't afford going to an ECF
[2023-01-20] MEDS: Atorvastatin Calcium 20 MG Tablet PO (20:59)
[2023-01-21] MEDS: Acetaminophen 500 MG Tablet 1000 MG PO ×3 (05:19→21:07)
[2023-01-21] MEDS: Ciprofloxacin 500 MG Tablet PO ×2 (05:20→16:06)
[2023-01-21] MEDS: Levothyroxine 75 MCG Tablet PO (05:20)
[2023-01-21 08:37] VITALS: BP 117/46; PULSE 65; RESP 16; TEMP 37.1; O2SAT 98
[2023-01-21] MEDS: Sertraline 50 MG Tablet 75 MG PO (08:42)
[2023-01-21] MEDS: Senna/Docusate Sodium 1 Tablet 2 TABLET PO ×2 (08:43→21:07)
[2023-01-21] MEDS: Amiodarone 200 MG Tablet 100 MG PO (08:44)
[2023-01-21] MEDS: APIXABAN 5 MG TABLET PO ×2 (08:44→21:07)
[2023-01-21] MEDS: Cholecalciferol (VIT D3) 25 MCG TABLET (1,000 UNITS) 50 MCG PO (08:45)
[2023-01-21] MEDS: oxyCODONE 5 MG Tablet PO ×3 (08:49→21:06)
[2023-01-21] MEDS: Menthol/Lanolin/Calamine/Znox 113 GM Tube 1 APPLIC TOPICAL ×2 (08:50→21:08)
[2023-01-21] MEDS: Petrolatum 33% Tube 1 APPLIC TOPICAL ×2 (08:51→21:08)
[2023-01-21] MEDS: Miconazole Nitrate 43 GM Bottle 1 APPLIC TOPICAL ×2 (08:51→21:08)
[2023-01-21] MEDS: Atorvastatin Calcium 20 MG Tablet PO (21:07)
[2023-01-22] MEDS: Ciprofloxacin 500 MG Tablet PO ×2 (05:29→17:00)
[2023-01-22] MEDS: Levothyroxine 75 MCG Tablet PO (05:29)
[2023-01-22] MEDS: Acetaminophen 500 MG Tablet 1000 MG PO ×3 (05:29→21:14)
[2023-01-22] MEDS: oxyCODONE 5 MG Tablet PO (05:36)
[2023-01-22 07:29] LABS: Hematocrit 32.8 % (37-47); Hemoglobin 10.4 g/dL (12.0-15.0)
[2023-01-22] MEDS: traMADol 50 MG Tablet PO ×2 (08:53→17:00)
[2023-01-22] MEDS: Cholecalciferol (VIT D3) 25 MCG TABLET (1,000 UNITS) 50 MCG PO (08:53)
[2023-01-22] MEDS: Senna/Docusate Sodium 1 Tablet 2 TABLET PO ×2 (08:56→21:15)
[2023-01-22] MEDS: Sertraline 50 MG Tablet 75 MG PO (08:56)
[2023-01-22] MEDS: APIXABAN 5 MG TABLET PO ×2 (08:57→21:13)
[2023-01-22] MEDS: Amiodarone 200 MG Tablet 100 MG PO (08:57)
[2023-01-22] MEDS: Miconazole Nitrate 43 GM Bottle 1 APPLIC TOPICAL ×2 (08:59→21:11)
[2023-01-22] MEDS: Petrolatum 33% Tube 1 APPLIC TOPICAL ×2 (08:59→21:12)
[2023-01-22] MEDS: Menthol/Lanolin/Calamine/Znox 113 GM Tube 1 APPLIC TOPICAL ×2 (09:00→21:12)
[2023-01-22] MEDS: Magnesium Citrate 300 ML PO (13:14)
--- NOTE | 2023-01-22 13:30 | NURSING ---
Pt and family updated on positive covid pt.
[2023-01-22 14:39] VITALS: BP 126/65; PULSE 64; RESP 16; TEMP 37.1; O2SAT 95
[2023-01-22 20:45] VITALS: O2SAT 97
[2023-01-22] MEDS: Atorvastatin Calcium 20 MG Tablet PO (21:13)
[2023-01-23] MEDS: Acetaminophen 500 MG Tablet 1000 MG PO ×3 (05:48→21:42)
[2023-01-23] MEDS: Levothyroxine 75 MCG Tablet PO (05:49)
[2023-01-23] MEDS: Ciprofloxacin 500 MG Tablet PO ×2 (05:49→17:47)
[2023-01-23 05:52] VITALS: O2SAT 94
[2023-01-23] MEDS: Cholecalciferol (VIT D3) 25 MCG TABLET (1,000 UNITS) 50 MCG PO (08:52)
[2023-01-23] MEDS: traMADol 50 MG Tablet PO (09:02)
[2023-01-23] MEDS: Amiodarone 200 MG Tablet 100 MG PO (09:03)
[2023-01-23] MEDS: Sertraline 50 MG Tablet 75 MG PO (09:03)
[2023-01-23] MEDS: Senna/Docusate Sodium 1 Tablet 2 TABLET PO ×2 (09:04→21:43)
[2023-01-23] MEDS: APIXABAN 5 MG TABLET PO ×2 (09:04→21:42)
[2023-01-23] MEDS: Menthol/Lanolin/Calamine/Znox 113 GM Tube 1 APPLIC TOPICAL ×2 (09:06→21:41)
[2023-01-23] MEDS: Miconazole Nitrate 43 GM Bottle 1 APPLIC TOPICAL ×2 (09:06→21:41)
[2023-01-23] MEDS: Petrolatum 33% Tube 1 APPLIC TOPICAL ×2 (09:06→21:41)
[2023-01-23] MEDS: Magnesium Citrate 300 ML PO (14:10)
[2023-01-23 14:56] VITALS: BP 139/60; PULSE 62; RESP 16; TEMP 36.9; O2SAT 94
[2023-01-23] MEDS: Atorvastatin Calcium 20 MG Tablet PO (21:43)
[2023-01-24 06:00] VITALS: TEMP 36.7; O2SAT 93
[2023-01-24] MEDS: traMADol 50 MG Tablet PO ×2 (06:10→12:38)
[2023-01-24] MEDS: Levothyroxine 75 MCG Tablet PO (06:11)
[2023-01-24] MEDS: Acetaminophen 500 MG Tablet 1000 MG PO ×3 (06:11→21:34)
--- NOTE | 2023-01-24 09:03 | NURSING ---
Construction Safety Consultant Note; Activity Asset: Oswald Jones has returned to [facility] and remains independent in her choice of daily activities. She continues to use her computer for puzzles along with reading, watching tv, visits with family and catholic members. Staff will remind her of daily activities and respect her right to say no.
[2023-01-24] MEDS: Sertraline 50 MG Tablet 75 MG PO (11:15)
[2023-01-24] MEDS: Amiodarone 200 MG Tablet 100 MG PO (11:16)
[2023-01-24] MEDS: Senna/Docusate Sodium 1 Tablet 2 TABLET PO ×2 (11:16→21:35)
[2023-01-24] MEDS: Cholecalciferol (VIT D3) 25 MCG TABLET (1,000 UNITS) 50 MCG PO (11:16)
[2023-01-24] MEDS: Menthol/Lanolin/Calamine/Znox 113 GM Tube 1 APPLIC TOPICAL ×2 (11:17→21:36)
[2023-01-24] MEDS: Miconazole Nitrate 43 GM Bottle 1 APPLIC TOPICAL ×2 (11:17→21:29)
[2023-01-24] MEDS: APIXABAN 5 MG TABLET PO ×2 (11:17→21:34)
[2023-01-24] MEDS: Petrolatum 33% Tube 1 APPLIC TOPICAL ×2 (11:18→21:28)
[2023-01-24 15:16] VITALS: BP 124/60; PULSE 68; RESP 14; TEMP 36.3; O2SAT 96
--- NOTE | 2023-01-24 16:20 | CASEMGMT ---
Social Work BIMS () and PHQ-2 () completed for MDS assessment. Taylor Ramon MSW DAYCARE TEACHER
[2023-01-24] MEDS: oxyCODONE 5 MG Tablet PO (21:34)
[2023-01-24] MEDS: Atorvastatin Calcium 20 MG Tablet PO (21:35)
[2023-01-25] MEDS: Acetaminophen 500 MG Tablet 1000 MG PO ×3 (05:24→22:09)
[2023-01-25] MEDS: Levothyroxine 75 MCG Tablet PO (05:24)
[2023-01-25 05:43] VITALS: PULSE 92; RESP 16; O2SAT 96
--- NOTE | 2023-01-25 08:00 | NURSING ---
Updated patient that covid test came back positive. She reports she feels fine, sitting up in bed eating breakfast. Called to update family, busy signal for daughter Sussy, carmela Raman, notified her of positive test.
[2023-01-25] MEDS: oxyCODONE 5 MG Tablet PO ×2 (09:17→22:08)
[2023-01-25] MEDS: Menthol/Lanolin/Calamine/Znox 113 GM Tube 1 APPLIC TOPICAL ×2 (09:18→22:10)
[2023-01-25] MEDS: Amiodarone 200 MG Tablet 100 MG PO (09:19)
[2023-01-25] MEDS: APIXABAN 5 MG TABLET PO ×2 (09:20→22:08)
[2023-01-25] MEDS: Miconazole Nitrate 43 GM Bottle 1 APPLIC TOPICAL ×2 (09:20→22:09)
[2023-01-25] MEDS: Cholecalciferol (VIT D3) 25 MCG TABLET (1,000 UNITS) 50 MCG PO (09:20)
[2023-01-25] MEDS: Senna/Docusate Sodium 1 Tablet 2 TABLET PO ×2 (09:21→22:09)
[2023-01-25] MEDS: Petrolatum 33% Tube 1 APPLIC TOPICAL ×2 (09:24→22:10)
[2023-01-25] MEDS: Sertraline 50 MG Tablet 75 MG PO (09:25)
[2023-01-25] MEDS: MOLNUPIRAVIR 200 MG CAPSULE 800 MG PO (09:28)
[2023-01-25 09:33] VITALS: BP 119/50; PULSE 62
--- NOTE | 2023-01-25 09:33 | NURSING ---
ALL CARE GIVEN IN ROOM DUE TO PT IN PRECAUTIONS FOR COVID.
--- NOTE | 2023-01-25 09:41 | NURSING ---
PT GIVEN INFORMATION ON THE MED LAGEVRIO FOR COVID. PT STATED SHE IS OK WITH TAKING THE MED AT THIS TIME.
--- NOTE | 2023-01-25 11:04 | CASEMGMT ---
Social Work IDT met with patient and dtr for care plan meeting. Discussed patient's progress in PT/OT/SN. Educated to [facility] insurance with NRD 01/27 and EDC 02/05. Pt is currently in isolation for COVID, however, pt and dtr both unhappy as pt has no symptoms and requesting a retest. Nursing updated. DC plan is for pt to DC home with and dtr and her family are moving in temporarily to assist pt. SW will coordinate any DC needs. Will continue to follow. Taylor Ramon, STRUCTURAL DESIGNER INWARD TOLL OPERATOR
--- NOTE | 2023-01-25 12:40 | NURSING ---
Notified that patient and family asking about re-testing for covid and were unsure about antiviral med. Went in room and spoke with patient and dtr Danisha. They requested patient be retested as she doesn't have any symptoms. They also expressed not wanting to continue the antiviral medication if patient asymptomatic. This RN assured them the medication was their choice, even thought the MD ordered it they have the right to refuse. Told them this RN would speak with sales analytics manager about re-testing. Daughter also expressed concern about having patient in isolation for 10 days when she has a follow-up appt with surgeon on Tuesday. She said she'd reached out to the surgeon's office and was awaiting a return call. This RN spoke with health unit coordinator, agreed upon ordering PCR test. Patient updated in room. Daughter no longer at bedside at that time.
[2023-01-25 12:55] VITALS: BMI 31.1
[2023-01-25 12:58] VITALS: BP 108/48; PULSE 64; RESP 16; TEMP 36.2; O2SAT 93
--- NOTE | 2023-01-25 16:20 | NURSING ---
Updated that PCR came back positive. She said she will update her family.
--- NOTE | 2023-01-25 17:24 | PCA ---
Belia was asked 2 times today if she wanted to get up & she said she wanted to stay in bed. End of note
--- NOTE | 2023-01-25 17:31 | NURSING ---
PT HAS REFUSED TO GET OUT OF BED FOR AIDS AND THIS NURSE TODAY. ASKED PT IF I COULD PUT THE BLINDS UP AND PT STATED NOT RIGHT NOW. EDUCATED PT ON NOT GETTING UP AND MOVING COULD CAUSE HER TO GET PNEUMONIA WHILE HAVING COVID. RN AWARE
[2023-01-25 20:20] VITALS: PULSE 95; O2SAT 94
[2023-01-25] MEDS: Atorvastatin Calcium 20 MG Tablet PO (22:09)
[2023-01-26] MEDS: Levothyroxine 75 MCG Tablet PO (05:33)
[2023-01-26] MEDS: Acetaminophen 500 MG Tablet 1000 MG PO ×3 (05:33→22:07)
[2023-01-26] MEDS: traMADol 50 MG Tablet PO (05:33)
[2023-01-26 06:00] LABS: Absolute Lymphocyte Count 0.84 X10^3/uL (0.83-4.51); Absolute Neutrophil Count 2.1 X10^3/uL (2.0-7.7); Basophil# 0.03 X10^3/uL; Basophil% 0.8 % (0-1); Eosinophil# 0.06 X10^3/uL; Eosinophils% 1.6 % (0-5); Hematocrit 34.8 % (37-47); Hemoglobin 10.9 g/dL (12.0-15.0); Lymphocyte # 0.84 X10^3/ul (0.83-4.51); Mean Corp Hgb Conc 31.3 g/dL (32-36); Mean Corpuscular Hgb 32.1 pg (27.0-32.0); Mean Corpuscular Volume 102.4 fL (81-99); Mean Platelet Vol. 9.1 fl (6.2-12.0); Monocyte# 0.72 X10^3/uL; Monocyte% 18.8 % (0-10); NRBC Flagged by Analyzer 0 % (0-5); Neutrophil # 2.07 X10^3/uL (2.7-7.7); Neutrophil % 54.2 % (47-70); Platelet Count 247 K/mm3 (150-450); RBC Distribution Width CV 13.7 % (11.6-14.6); RBC Distribution Width SD 51.4 fl (35.1-43.9); White Blood Count 3.8 K/mm3 (4.4-11.0)
[2023-01-26 06:25] LABS: Anion Gap 5 (5-15); BUN 13 mg/dL (7-18); BUN/Creat Ratio 15.1 RATIO (10-20); Calcium,Total 7.9 mg/dL (8.5-10.1); Chloride 99 mmol/L (98-107); Creatinine, Serum 0.86 mg/dL (0.55-1.02); EST Glomerular Filtration Rate 67 mL/min (>60); Est Glom Filt Rate - Afr Amer 81 mL/min (>60); Glucose 91 mg/dL (74-106); Potassium 4.6 mmol/L (3.5-5.1); Sodium Level 131 mmol/L (136-145)
[2023-01-26 07:03] VITALS: O2SAT 92
[2023-01-26 08:30] VITALS: PULSE 88; O2SAT 95
--- NOTE | 2023-01-26 08:39 | NURSING ---
Instrumentation And Controls Designer Note; MDS for 01/25/2023 Complete
[2023-01-26] MEDS: Miconazole Nitrate 43 GM Bottle 1 APPLIC TOPICAL ×2 (10:05→22:14)
[2023-01-26] MEDS: Menthol/Lanolin/Calamine/Znox 113 GM Tube 1 APPLIC TOPICAL ×2 (10:05→22:14)
[2023-01-26] MEDS: Cholecalciferol (VIT D3) 25 MCG TABLET (1,000 UNITS) 50 MCG PO (10:05)
[2023-01-26] MEDS: Amiodarone 200 MG Tablet 100 MG PO (10:05)
[2023-01-26] MEDS: APIXABAN 5 MG TABLET PO ×2 (10:06→22:07)
[2023-01-26] MEDS: Petrolatum 33% Tube 1 APPLIC TOPICAL ×2 (10:06→22:13)
[2023-01-26] MEDS: Senna/Docusate Sodium 1 Tablet 2 TABLET PO ×2 (10:06→22:08)
[2023-01-26] MEDS: Sertraline 50 MG Tablet 75 MG PO (10:07)
[2023-01-26] MEDS: Tuberculin,Purif.prot.deriv. 50 TU/ML Vial 0.1 ML ID (10:09)
[2023-01-26 14:36] VITALS: BP 141/69; PULSE 69; RESP 16; TEMP 35.8; O2SAT 97
[2023-01-26 16:07] LABS: Bacteria 0 SEEN /hpf (None Seen); Mucous, Urine 0 SEEN /hpf (<or=2+); Red Blood Cells-Urine 0 SEEN /hpf (0-5); Squamous Epithelial Cells - UA 0 SEEN /hpf (5-10); White Blood Cells 0 SEEN /hpf (0-5)
[2023-01-26 16:18] LABS: Color, Urine Yellow (Yellow); Glucose, Dipstick Normal (Normal); Ketone-Dipstick Negative (Negative); Leukocyte Esterase-Dipstick Negative /ul (Negative); Nitrite-Dipstick Negative (Negative); Occult Blood-Urine 25 /ul (Negative); Protein-Dipstick Negative (Negative); Urine Bilirubin Dipstick Negative (Negative); Urine Clarity Clear (Clear); Urine Urobilinogen Normal (Normal)
[2023-01-26 20:24] VITALS: PULSE 80; RESP 18; O2SAT 97
[2023-01-26] MEDS: Atorvastatin Calcium 20 MG Tablet PO (22:08)
[2023-01-26] MEDS: oxyCODONE 5 MG Tablet PO (22:12)
--- NOTE | 2023-01-27 03:00 | NURSING ---
Patient continues to refuse Lagevrio for covid despite education, written communication left for Dr. Jaimes. Patient reports runny nose no cough, no sore throat, no GI distress. Enhanced covid precautions maintained.
[2023-01-27] MEDS: Acetaminophen 500 MG Tablet 1000 MG PO ×3 (05:49→21:28)
[2023-01-27] MEDS: Levothyroxine 75 MCG Tablet PO (05:50)
[2023-01-27 06:21] LABS: Anion Gap 4 (5-15); BUN 16 mg/dL (7-18); Chloride 100 mmol/L (98-107); Creatinine, Serum 0.84 mg/dL (0.55-1.02); EST Glomerular Filtration Rate 69 mL/min (>60); Est Glom Filt Rate - Afr Amer 84 mL/min (>60); Estimated Creatinine Clearance 45.36 ml/min; Glucose 94 mg/dL (74-106); Potassium 5.2 mmol/L (3.5-5.1); Sodium Level 132 mmol/L (136-145)
[2023-01-27] MEDS: Cholecalciferol (VIT D3) 25 MCG TABLET (1,000 UNITS) 50 MCG PO (09:34)
[2023-01-27] MEDS: Amiodarone 200 MG Tablet 100 MG PO (09:34)
[2023-01-27] MEDS: Senna/Docusate Sodium 1 Tablet 2 TABLET PO (09:35)
[2023-01-27] MEDS: APIXABAN 5 MG TABLET PO ×2 (09:35→21:29)
[2023-01-27] MEDS: Sertraline 50 MG Tablet 75 MG PO (09:35)
[2023-01-27] MEDS: Menthol/Lanolin/Calamine/Znox 113 GM Tube 1 APPLIC TOPICAL ×2 (09:43→21:29)
[2023-01-27] MEDS: Petrolatum 33% Tube 1 APPLIC TOPICAL ×2 (09:44→21:30)
[2023-01-27] MEDS: Miconazole Nitrate 43 GM Bottle 1 APPLIC TOPICAL ×2 (09:44→21:29)
[2023-01-27 09:52] VITALS: BP 116/62; PULSE 74
[2023-01-27] MEDS: Calcium Carbonate 500 MG Tablet PO ×3 (11:30→21:30)
[2023-01-27] MEDS: Sodium Polystyrene Sulfonate 15 GM/60 ML UDC 30 GM PO (11:31)
--- NOTE | 2023-01-27 11:53 | MDS.RN ---
Information for the mds was obtained from review of the clinical record, interview of resident, staff, and direct observation of resident's care.
--- NOTE | 2023-01-27 14:05 | NURSING ---
CALLED OFFICE IN [place] TO SEE IF THE WILL SEE PT DUE TO PT HAVING COVID AND ALSO TO LET DR. KNOW PT HAVING ALOT OF DRAINAGE THREW DRESSING ON RT LOWER LEG AND PER HIS ORDERS NURSING IS NOT TO TOUCH DRESSING. THE NURSE STATED SHE WOULD LET THE DOCTOR KNOW AND GET BACK WITH US. RN AWARE
--- NOTE | 2023-01-27 14:14 | NURSING ---
All patient care provided in-room due to Covid isolation precautions
--- NOTE | 2023-01-27 14:21 | NURSING ---
Addendum entered by Enrique Gutiérrez 01/27/23 15:17: OFFICE CALLED BACK AND STATED PT CAN COME TO APPOINTMENT SINCE IT WILL BE PASSED 5 DAYS AND LONG THERE NO NEW SYSTEMS OR PT IS WORSE. PT AND DAUGHTER UPPER DATED. RN AWARE Original Note: DAUGHTER LUCI UPDATED ON NEW ORDERS AND STATED TO DAUGHTER WE WILL CALL HER WHEN WE HEAR FROM OFFICE.
[2023-01-27] MEDS: traMADol 50 MG Tablet PO (15:35)
--- NOTE | 2023-01-27 15:47 | NURSING ---
KAYEXALATE GIVEN TODAY WITH POSITIVE RESULTS. ALSO PT COMPLAINED OF LEFT CALF PAIN WITH SWELLING TO LOWER LEG. DR. ELDRIDGE NOTIFYED.
[2023-01-27 16:00] VITALS: BP 115/70; PULSE 58; RESP 16; TEMP 37.4; O2SAT 97
[2023-01-27] MEDS: Atorvastatin Calcium 20 MG Tablet PO (21:29)
[2023-01-27] MEDS: oxyCODONE 5 MG Tablet PO (21:36)
[2023-01-27 21:45] VITALS: O2SAT 95
[2023-01-28 06:16] LABS: Anion Gap 4 (5-15); BUN 16 mg/dL (7-18); BUN/Creat Ratio 19.1 RATIO (10-20); Calcium,Total 7.9 mg/dL (8.5-10.1); Chloride 100 mmol/L (98-107); Creatinine, Serum 0.84 mg/dL (0.55-1.02); EST Glomerular Filtration Rate 69 mL/min (>60); Est Glom Filt Rate - Afr Amer 84 mL/min (>60); Estimated Creatinine Clearance 45.36 ml/min; Glucose 92 mg/dL (74-106); Potassium 4.6 mmol/L (3.5-5.1); Sodium Level 133 mmol/L (136-145)
[2023-01-28] MEDS: Levothyroxine 75 MCG Tablet PO (06:20)
[2023-01-28] MEDS: Acetaminophen 500 MG Tablet 1000 MG PO ×3 (06:20→21:58)
[2023-01-28] MEDS: traMADol 50 MG Tablet PO (06:24)
[2023-01-28] MEDS: Calcium Carbonate 500 MG Tablet PO (06:24)
[2023-01-28] MEDS: Amiodarone 200 MG Tablet 100 MG PO (08:44)
[2023-01-28] MEDS: APIXABAN 5 MG TABLET PO ×2 (08:45→21:59)
[2023-01-28] MEDS: Cholecalciferol (VIT D3) 25 MCG TABLET (1,000 UNITS) 50 MCG PO (08:46)
[2023-01-28] MEDS: Sertraline 50 MG Tablet 75 MG PO (08:47)
[2023-01-28] MEDS: Miconazole Nitrate 43 GM Bottle 1 APPLIC TOPICAL ×2 (09:21→22:03)
[2023-01-28] MEDS: Menthol/Lanolin/Calamine/Znox 113 GM Tube 1 APPLIC TOPICAL ×2 (09:21→22:03)
[2023-01-28] MEDS: Petrolatum 33% Tube 1 APPLIC TOPICAL ×2 (09:21→22:04)
[2023-01-28 09:39] VITALS: RESP 16; O2SAT 94
--- NOTE | 2023-01-28 11:00 | NURSING ---
Addendum entered by Gisele Reid Tawanda 01/28/23 12:34: dr joseph assessed wound while wound nurse was undressing, new orders for lab, cultures, gram stain and MRSA. IV ATBs maxipime and cipro ordered. daughter, Danisha updated. pt going to appt with surgeon on tuesday via ambulance transport Original Note: pt c/o of drainage from ankle incision under soft splint. notified wound nurse early AM for assessment of incision. awaiting on her arrival to remove and assess site for infection. mod amt of lauren pearce noted. daughter concerned, pt sent a picture of the drainage during night on a pillow case.
[2023-01-28 11:52] VITALS: BP 122/68; PULSE 88; RESP 14; TEMP 36.4; O2SAT 94
--- NOTE | 2023-01-28 12:35 | WOUNDNOTE ---
wound photo: right lateral leg
--- NOTE | 2023-01-28 12:36 | WOUNDNOTE ---
wound photo: right medial leg
--- NOTE | 2023-01-28 12:47 | PCA ---
01/28/23 Insurance called for preauth for MRI, no preauth needed, Ref #[id number]
[2023-01-28 13:01] LABS: Erythrocyte Sedimentation Rate 22 mm/hr (0-30)
[2023-01-28 13:04] LABS: Absolute Lymphocyte Count 1.17 X10^3/uL (0.83-4.51); Absolute Neutrophil Count 2.6 X10^3/uL (2.0-7.7); Basophil# 0.03 X10^3/uL; Basophil% 0.7 % (0-1); Eosinophil# 0.08 X10^3/uL; Eosinophils% 1.8 % (0-5); Hematocrit 35.5 % (37-47); Hemoglobin 11.3 g/dL (12.0-15.0); Lymphocyte # 1.17 X10^3/ul (0.83-4.51); Lymphocyte % 26.1 % (19-41); Mean Corp Hgb Conc 31.8 g/dL (32-36); Mean Corpuscular Hgb 32.3 pg (27.0-32.0); Mean Corpuscular Volume 101.4 fL (81-99); Mean Platelet Vol. 9.3 fl (6.2-12.0); Monocyte# 0.43 X10^3/uL; Monocyte% 9.6 % (0-10); NRBC Flagged by Analyzer 0 % (0-5); Neutrophil # 2.63 X10^3/uL (2.7-7.7); Neutrophil % 58.7 % (47-70); Platelet Count 279 K/mm3 (150-450); RBC Distribution Width CV 13.8 % (11.6-14.6); RBC Distribution Width SD 50.9 fl (35.1-43.9); White Blood Count 4.5 K/mm3 (4.4-11.0)
[2023-01-28 13:29] LABS: ALB/GLOB Ratio 0.7 RATIO (0.9-2.4); AST(SGOT) 30 U/L (15-37); Alanine Aminotransfer ALT/SGPT 26 U/L (13-56); Albumin, Serum 2.6 g/dL (3.2-5.0); Alkaline Phosphatase 50 U/L (45-117); Anion Gap 6 (5-15); BUN 18 mg/dL (7-18); BUN/Creat Ratio 22.1 RATIO (10-20); CRP < 2.90 mg/L (0.0-3.0); Calcium,Total 7.8 mg/dL (8.5-10.1); Chloride 99 mmol/L (98-107); Creatinine, Serum 0.81 mg/dL (0.55-1.02); EST Glomerular Filtration Rate 72 mL/min (>60); Est Glom Filt Rate - Afr Amer 87 mL/min (>60); Estimated Creatinine Clearance 47.04 ml/min; Globulin 3.5 g/dL (2.2-4.2); Glucose 109 mg/dL (74-106); Lactic Acid 1.4 mmol/L (0.4-1.9); Potassium 3.7 mmol/L (3.5-5.1); Protein, Total 6.1 g/dL (6.4-8.2); Sodium Level 131 mmol/L (136-145)
[2023-01-28 14:00] LABS: M R Staph aureus DNA By PCR Negative (Negative); Probe Check PASS; Specimen Processing Control PASS; Staph aureus DNA By PCR NEGATIVE (Negative)
--- NOTE | 2023-01-28 14:14 | NURSING ---
[facility] tech reported negative dopper for LT LE
[2023-01-28] MEDS: 0.9% Saline Lock 10 ML Syringe IV ×3 (14:25→22:56)
[2023-01-28] MEDS: Ciprofloxacin 400 MG/200 ML BAG 200 MG IV ×2 (14:25→22:58)
[2023-01-28] MEDS: 0.9% Normal Saline (250mL Bag) 250 ML 15 ML IV (14:29)
[2023-01-28] MEDS: oxyCODONE 5 MG Tablet PO ×2 (15:54→22:00)
[2023-01-28] MEDS: Cefepime HCl 2 GM in 0.9% Normal Saline (100mL MB+) 100 ML IV ×2 (15:54→21:59)
[2023-01-28] MEDS: LORazepam 0.5 MG Tablet PO (17:02)
--- NOTE | 2023-01-28 21:52 | NURSING ---
spoke with pharmacist (Corby) regarding current times for IV antibiotics and time initiated this date, questioned if meds need to be re-timed as ordered q12h, per pharmacist administer at 2200 as currently scheduled, ok to admin.
[2023-01-28] MEDS: Senna/Docusate Sodium 1 Tablet 2 TABLET PO (21:58)
[2023-01-28] MEDS: Atorvastatin Calcium 20 MG Tablet PO (21:59)
[2023-01-29] MEDS: 0.9% Saline Lock 10 ML Syringe IV ×2 (00:26→11:57)
--- NOTE | 2023-01-29 05:44 | NURSING ---
Received call from Dr. Jaimes, reviewed MRI results, no change in patient condition this shift. New order received: ensure all labs from 01/28/23, culture results, current list of IV antibiotics, and disc of MRI results are sent with patient to appointment on 01/31/23. Order repeated back
[2023-01-29] MEDS: Acetaminophen 500 MG Tablet 1000 MG PO (06:42)
[2023-01-29] MEDS: oxyCODONE 5 MG Tablet PO ×2 (06:42→13:32)
[2023-01-29] MEDS: Levothyroxine 75 MCG Tablet PO (06:42)
[2023-01-29] MEDS: APIXABAN 5 MG TABLET PO (09:05)
[2023-01-29] MEDS: Cholecalciferol (VIT D3) 25 MCG TABLET (1,000 UNITS) 50 MCG PO (09:06)
[2023-01-29] MEDS: Amiodarone 200 MG Tablet 100 MG PO (09:06)
[2023-01-29] MEDS: Miconazole Nitrate 43 GM Bottle 1 APPLIC TOPICAL (09:06)
[2023-01-29] MEDS: Petrolatum 33% Tube 1 APPLIC TOPICAL (09:07)
[2023-01-29] MEDS: Senna/Docusate Sodium 1 Tablet 2 TABLET PO (09:07)
[2023-01-29] MEDS: Sertraline 50 MG Tablet 75 MG PO (09:08)
[2023-01-29] MEDS: Menthol/Lanolin/Calamine/Znox 113 GM Tube 1 APPLIC TOPICAL (09:11)
[2023-01-29] MEDS: Ciprofloxacin 400 MG/200 ML BAG 200 MG IV (09:18)
[2023-01-29] MEDS: Cefepime HCl 2 GM in 0.9% Normal Saline (100mL MB+) 100 ML IV (09:19)
[2023-01-29 10:00] VITALS: RESP 14; O2SAT 94
--- NOTE | 2023-01-29 10:05 | NURSING ---
Addendum entered by Huong Mack 01/29/23 14:32: Per MD Ship patient to [facility] ER for further evaluation. Transport p/u patient at 1420. Patient transported off the floor at this time. Report given to JAYDEN Alba at [facility] after They completed a doc to doc on patient. Addendum entered by Huong Mack 01/29/23 11:37: 2nd page put through to Ally at [facility]. MD called the unit. SBAR given on patient situation. MD Made aware of ATB therapy/MRI results/ Blood work/Swabs. MD Ally Questioned why we would start IV ATB through our MD in the unit d/t suspected abscess/infection. Reiterated patient had copious amounts of yellow green drainage w/ odor. MRI showed possibly abscess. Ally questioned the credentials for our MD In the unit while ally did not address the patient status. Therefore I asked Ally what we should do to help the patient avoiding conflict. He bluntly stated that if we wanted to bring patient to [facility] ER to be evaluated by a resident that is fine because he is not working this weekend and misunderstood why we were paging for him. Explained that his resident is the one who said I needed to page for this MD directly. I noted that we are pushing the imaging through electronically from MRI. I Notified Ally that I would discuss further w/ this patient and family on regards to transporting patient out of unit. He states that our ER is to not touch the patient any further- only to transport patient if this is a decision by family to have patient transported to [facility]. Addendum entered by Huong Mack 01/29/23 10:46: PER [facility] Surgery they cannot accept or manage this patient's care. Surgeon gave me the number for the surgeon office [phone], I contacted this office to page for a provider. The larry car operator had tried to tell me that they cannot accept hospital calls at this office. I stated that the surgeon that is on for [facility] states this is who I am to reach out to. She states she will try to page them and if I do not hear from the office w/in 20-30 mins to give her a call back. Original Note: Patient family concerned for patient change in status. Asked for this nurse to page surgeon's office to see about possible transfer to [facility] due to patient not feeling generally well. Page placed- [facility] MEDICAID ANALYST for surgeon office called. Collected some information about patient. States she will have surgeon call after he is out of surgery in regards to patient. Family member notified.
--- NOTE | 2023-01-29 11:23 | NURSING ---
spoke with nina henderson, unable to burn disc at this time, sending MRI electronically to [facility]
[2023-01-29] MEDS: Ondansetron 8 MG Tablet PO (12:57)
--- NOTE | 2023-01-29 13:21 | NURSING ---
physicians transport transporting pt to [facility] at 2p via cot. transport cancelled on tuesday for appt w/surgeon. krishan here and aware.
[2023-01-29 14:34] VITALS: BP 118/62; PULSE 80; RESP 14; TEMP 36.3; O2SAT 95
--- NOTE | 2023-01-29 18:23 | PCM.DC.SUM ---
Providers Date of Admission: 01/18/23 Primary Care Physician: Dr. Mauricio Barney MD Consultations 01/28/23 11:02 Consult: Onc/Wound/mortgage servicing specialist Routine Comment: Reason for Consult:: right ankle incision draining w/odor Reason For Visit: ORIF RIGHT ANKLE BONE Diagnosis Discharge Diagnosis (1) Debility: Status: Acute Code(s): R53.81 - Other malaise (2) Fall: Status: Inactive Code(s): W19.XXXA - Unspecified fall, initial encounter (3) Open bimalleolar fracture of right ankle: Status: Inactive Code(s): S82.841B - Displaced bimalleolar fracture of right lower leg, initial encounter for open fracture type I or II (4) Atrial fibrillation: Status: Acute Code(s): I48.91 - Unspecified atrial fibrillation (5) Hyperlipidemia: Status: Chronic Code(s): E78.5 - Hyperlipidemia, unspecified Qualifiers: Hyperlipidemia type: pure hypercholesterolemia Qualified Code(s): E78.00 - Pure hypercholesterolemia, unspecified; E78.0 - Pure hypercholesterolemia (6) Hypothyroidism: Status: Acute Code(s): E03.9 - Hypothyroidism, unspecified (7) Depression: Status: Acute Code(s): F32.9 - Major depressive disorder, single episode, unspecified (8) Vitamin D deficiency: Status: Acute Code(s): E55.9 - Vitamin D deficiency, unspecified (9) Rheumatoid arthritis: Status: Acute Code(s): M06.9 - Rheumatoid arthritis, unspecified Plan 82 year old female with below past medical history hospitalized for open right bimalleolar fracture, underwent ORIF right ankle fracutre 01/16/2023, admitted to TCU with debility, here for rehabilitation, strengthening, prior to discharge home with . Debility - PT/OT. Pain - Tylenol 1000mg q8, Tramadol 50mg q6h prn pain (1-5), Oxycodone 5mg q4h prn pain (6-10) Bowel - senna/colace 2 tablets bid, Magnesium citrate 300ml daily prn. Adult immunization - Administer pneumonia vaccine, covid19 vaccine, flu vaccine as appropriate. DVT prophylaxis - on Eliquis. Atrial fibrillation - Amiodarone 100mg daily, Eliquis 5mg bid. Hyperlipidemia - Atorvastatin 20mg qhs. Vitamin D deficiency - D3 25mcg daily. Urinary tract infection - Cipro 500mg bid thru 01/23/2023. Hypothyroidism - Levothyroxine 75mcg daily. Depression - Sertraline 75mg daily, stable chronic fpc use, GDR not recommended. Medications at Discharge Home Medications sertraline 100 mg tablet 75 mg PO DAILY mood/depression 10/17/14 handicap placcard #1 ea 05/07/20 levothyroxine 75 mcg tablet 75 mcg PO DAILY thyroid 02/05/21 ergocalciferol (vitamin D2) 50 mcg (2,000 unit) capsule 50 mcg PO DAILY supplement 07/27/21 atorvastatin 20 mg tablet 20 mg PO QHS cholesterol #90 tabs 09/25/21 apixaban 5 mg tablet (Eliquis) 5 mg PO BID blood thinner 04/27/22 amiodarone 200 mg tablet 100 mg PO DAILY heart 01/15/23 Hospital Course Operations - (See below.) Procedures None Summary of Care Provided Minutes Spent on Discharge: 15 Hospital Course: 82 year old female with below past medical history hospitalized for open right bimalleolar fracture, underwent ORIF right ankle fracutre 01/16/2023, admitted to TCU with debility, here for rehabilitation, strengthening, prior to discharge home with . 01/28/2023 Resident has copious right ankle green drainage. Dressing, splint removed. She is s/p ORIF open right ankle fracture. order cbcd, cmp, esr, crp, lactic acid, blood cultures x 2, Wound cultures sent, MRI of right ankle ordered. Cefepime 2gm iv q12 x 7 days, Cipro 400mg iv q12 x 7 days double coverage for pseudomonas. 01/29/2023 MRI right ankle shows abscess/cellulitis right ankle. Discharge to [facility] Emergency Department 01/29/2023 for evaluation, admission to hospital. Physical Exam Const alert General Appearance: cooperative HEENT normocephalic Eyes PERRL and EOMs intact bilaterally Neck supple, no JVD and no carotid bruits Resp normal respiratory effort, normal air movement and clear to auscultation bilaterally Cardio regular rate and regular rhythm GI normal to inspection, nondistended, normoactive bowel sounds, non-tender and non-distended Extremity normal capillary refill General Extremity: Negative for edema Skin no rashes or lesions noted General Skin Exam: no breakdown Psych affect normal Appearance: appropriate Weight / BMI Weight Weight: 82.236 kg Body Mass Index (BMI) 31.1 ABG / Lab / Microbiology Data 01/28/23 12:30 01/28/23 12:30 Microbiology: Microbiology 01/28/23 11:30 Exudate Gram Stain - Final 01/28/23 11:30 Exudate Wound Culture - Preliminary 01/28/23 11:30 Exudate Gram Stain - Final 01/28/23 11:30 Exudate Wound Culture - Preliminary GPC Poss Enterococcus sp 01/25/23 18:25 Urine Catheter - Catheter Urine Culture - Final Culture exhibits no growth. 01/25/23 13:12 Mucosa - Nose Coronavirus COVID-19 PCR - Final SARS-CoV-2 (COVID 19) 01/25/23 05:32 Nasal Secretion SARS-CoV-2 Antigen (Rapid) - Final SARS-CoV-2 (COVID 19) 01/22/23 06:00 Nasal Secretion SARS-CoV-2 Antigen (Rapid) - Final 01/18/23 22:20 Nasal Secretion SARS-CoV-2 Antigen (Rapid) - Final D/C Instructions Discharge Diet: No restrictions Discharge Activity: Return to Normal Activity, May Shower and Use Walker Weight Bearing Status: No weight bearing (Right lower extremity.) Additional Instructions: Discharge to [facility] Emergency Department 01/29/2023 for evaluation, admission to hospital. Please Follow Up With: Dennis Martinez When: in hospital. Meaningful Use Info Meaningful Use Diagnoses (Choose all that apply): None applicable Discharge Plan Admission Admit Date/Time: 01/18/23 19:35 Primary Reason for Your Visit: Debility. Attending Provider: Mac Jaimes Chi Primary Care Provider: Mauricio Barney Instructions Additional Instructions / Restrictions: Discharge to [facility] Emergency Department 01/29/2023 for evaluation, admission to hospital. Discharge Orders/Prescriptions Prescriptions: Continued levothyroxine 75 mcg tablet 75 mcg PO DAILY ergocalciferol (vitamin D2) 50 mcg (2,000 unit) capsule 50 mcg PO DAILY sertraline 100 MG tablet 75 mg PO DAILY Patient Comments: MOOD/DEPRESSION Eliquis 5 mg Tablet 5 mg PO BID amiodarone 200 mg tablet 100 mg PO DAILY atorvastatin 20 mg tablet 20 mg PO QHS Qty: 90 3RF Discontinued Simponi 50 mg/0.5 mL pen injector 50 mg IV QMONTH Rx Instructions: every other month acetaminophen 500 mg Tablet 500 mg PO Q8H PRN PRN (Reason: Pain) Viactiv 1 dose OTHER DAILY lidocaine 5 % Adhesive Patch,Medicated 1 patch topical DAILY 30 Days Qty: 30 0RF Protocol: *Topical Application Instructions APPLICATION INSTRUCTIONS: back pain ciprofloxacin HCl 500 mg tablet 500 mg PO BID Rx Instructions: take at 6am and 6pm for 10 doses oxycodone 5 mg tablet 5 mg PO Q6H PRN (Reason: pain) Patient Comments: for pain 1-10 cranberry extract 200 mg capsule 200 mg PO DAILY Rx Instructions: administer with a meal No Action (DME) handicap placcard See Rx Instructions .Route .MEDSUPPLY Qty: 1 0RF Rx Instructions: dx: severe OA expires: 5 years Referrals / Follow Up: Mauricio Barney MD [Primary Care Provider] - Disposition Disposition (needs filled in before D/C Order can be placed): [facility]
== END 2023-01-29 14:20 | disposition short-term general hospital (02) | DRG 560 ==
PROVIDERS: Admitting Provider Family Medicine Geriatric Medicine; PCP Family Medicine; Visit Provider Family Medicine Geriatric Medicine
DX: S82.841D Displaced bimalleolar fracture of right lower leg, subsequent encounter for closed fracture with routine healing (principal); N39.0 Urinary tract infection, site not specified; L02.415 Cutaneous abscess of right lower limb; L03.115 Cellulitis of right lower limb; I48.0 Paroxysmal atrial fibrillation; M06.9 Rheumatoid arthritis, unspecified; E03.9 Hypothyroidism, unspecified; F32.9 Major depressive disorder, single episode, unspecified; E78.00 Pure hypercholesterolemia, unspecified; E55.9 Vitamin D deficiency, unspecified; W19.XXXD Unspecified fall, subsequent encounter; Z79.899 Other long term (current) drug therapy; Z79.890 Hormone replacement therapy; Z79.01 Long term (current) use of anticoagulants; Z86.718 Personal history of other venous thrombosis and embolism; B96.5 Pseudomonas (aeruginosa) (mallei) (pseudomallei) as the cause of diseases classified elsewhere
CPT/HCPCS: 36415; 80048; 80053; 81001; 83605; 85014; 85018; 85025; 85652; 86140; 87040; 87070; 87077; 87086; 87186; 87205; 87635; 87640; 87811; 94762; 97110; 97116; 97162; 97166; 97530; 97535; 97802; J7050; A4216; J0744

== ENCOUNTER → 2023-01-28 | Outpatient (CLI) | payer MEDICARE, SELFPAY ==
--- NOTE | 2023-01-28 09:04 | VDLE_ITS ---
Reason For Study: LEG SWELLING Procedure LEFT This is a venous duplex using B-mode, color GSV is normal. flow and spectral Doppler. CFV is compressible, spontaneous, phasic, Exam performed portable in patient room. competent, and demonstrates normal The exam was abbreviated due to the COVID 19 augmentation. protocol. FV is compressible, spontaneous, phasic, The exam was diagnostic. competent and demonstrates normal A preliminary report was called and/or faxed augmentation. to TCU RN. POP V is compressible, spontaneous, phasic, competent and demonstrates normal augmentation. T/P Trunk is compressible. PTV is compressible. LT PerV is compressible. VL/Venous Duplex US, Unilateral Interpretation Summary There is no evidence of left lower extremity deep vein thrombosis. Left great s aphenous vein appears patent and compressible segmentally. Abbreviated COVID-19 protocol utilized Ordering Physician: Mac Jaimes Chi Referring Physician: Mac Jaimes Chi Performed By: Alex Saleem RVT
--- NOTE | 2023-01-28 16:50 | MRI_ITS ---
STUDY: MRI RIGHT ANKLE WITHOUT CONTRAST REASON FOR EXAM: Female, 82 years old. INFECTION AND INFLAMMATORY REACTION POST OP TECHNIQUE: Standardized fat and water weighted pulse sequences were obtained in all 3 orthogonal planes. COMPARISON: X-ray 01/15/2023 FINDINGS: Diffuse skin thickening and edema in the subcutaneous fat consistent with cellulitis or passive congestion. There is a 1 x 3 x 5 cm heterogeneous T1 hyperintense and T2 hyperintense fluid collection anterolateral to the distal fibula worrisome for hematoma or abscess. Normal posterior tibialis tendon. Normal flexor digitorum longus tendon. Normal flexor hallucis longus tendon. Normal peroneus longus and brevis tendons. Normal tibialis anterior tendon. Normal extensor hallucis longus tendon. Normal extensor digitorum longus tendons. Normal Achilles tendon and teno-osseous insertion. Normal plantar fascia. Normal plantar calcaneal tubercles. Normal intrinsic muscles of the rearfoot. Normal distal tibiofibular syndesmotic ligamentous complex. There is a complete rupture of the anterior talofibular ligament (ATFL). Normal subtalar ligaments and sinus tarsi. Normal deltoid ligamentous complexes. Normal plantar calcaneonavicular (spring) ligament. Normal tibiotalar articulation. Normal talar dome. Normal subtalar articulations. Normal talonavicular articulation. Normal calcaneocuboid articulation. Normal navicular-cuneiform articulations. Status post open reduction internal fixation of fracture of the medial malleolus with 2 screws and fracture of the distal fibula with a lateral plate and screws. No definite marrow edema or bony destruction to suggest osteomyelitis. MRI/Lower Ext Joint Only (Routine) IMPRESSION: Suspect cellulitis or passive congestion with a complex fluid collection anterolateral to the distal fibula worrisome for hematoma or abscess. No definite osteomyelitis. Electronically Signed: New Bills MD at 23:12 EDT ,
== END | disposition home or self-care (01) ==
PROVIDERS: PCP Family Medicine; Referring Provider Family Medicine Geriatric Medicine; Visit Provider Family Medicine Geriatric Medicine
DX: R60.0 Localized edema (principal); T84.69XA Infection and inflammatory reaction due to internal fixation device of other site, initial encounter; X58.XXXA Exposure to other specified factors, initial encounter
CPT/HCPCS: 73721; 93971

== ENCOUNTER 2023-02-03 20:55 | Inpatient (IN) | payer MEDICARE, SELFPAY ==
--- NOTE | 2023-02-03 22:29 | HP.PCM_ITS ---
[facility] - General General Date of Admission: 02/03/23 Date of Service: 02/04/23 Chief Complaint: Here for rehabilitation, intravenous antibiotics. [facility] Narinder GILMORE, is a 82 Female who presents with followin01/15/2023 [facility] Emergency Department with fall, open right bimalleolar ankle fracture. 01/15/[address] [facility] Trauma. 01/16/2023 Dr. Nelson performed ORIF right bimalleolar ankle fracture, irri gation and debridement. 01/18/2023 Admit to TCU for rehabilitation. 01/28/2023 Copious right ankle green drainage. 01/29/2023 MRI right ankle showed abscess/cellulitis of right ankle. 01/29/[address] [facility]. Zosyn, Vancomycin given. 01/30/2023 Dr. Nelson performed irrigation debridement right ankle surgical site infection with implant antibiotic beads. 02/02/2023 Nausea, vomiting, chills, diarrhea. PICC line placed. Wound cultures from [facility] growing rare bacillus, and Enterococcus Faecalis. ID recommended stopping Vancomycin. Change Zosyn to Unasyn 3gm iv q6h x 6 bweeks. Stop date 03/14/2023. 02/03/2023 Admit to TCU with debility, here for rehabilitation, strengthening, i ntravenous antibiotics, prior to discharge home with spouse. 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 Open wound of right buttock with complication 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 Paroxysmal atrial fibrillation Peptic ulcer disease Rheumatoid arthritis Traumatic hematoma of buttock Vitamin D deficiency Home Medications sertraline 100 mg tablet 75 mg PO DAILY mood/depression 10/17/14 [History Last Taken 03/21/18 10:55] handicap placcard #1 ea 05/07/20 [Rx Last Taken Unknown] levothyroxine 75 mcg tablet 75 mcg PO DAILY thyroid 02/05/21 [History Last Taken Unknown] ergocalciferol (vitamin D2) 50 mcg (2,000 unit) capsule 50 mcg PO DAILY supplement 07/27/21 [History Last Taken Unknown] atorvastatin 20 mg tablet 20 mg PO QHS cholesterol #90 tabs 09/25/21 [Rx Last Taken Unknown] apixaban 5 mg tablet (Eliquis) 5 mg PO BID blood thinner 04/27/22 [History Last Taken Unknown] amiodarone 200 mg tablet 100 mg PO DAILY heart 01/15/23 [History Last Taken 01/18/23] Lactobacillus rhamnosus GG 10 billion cell capsule 1 cap PO DAILY Supplement 02/03/23 [History Last Taken Unknown] acetaminophen 500 mg tablet (Acetaminophen Extra Strength) 500 mg PO Q8H PRN PRN pain 02/03/23 [History Last Taken 02/03/23] ampicillin-sulbactam 3 gram intravenous solution 3 g IV Q6H Right ankle infection 02/03/23 [History Last Taken Unknown] cranberry extract 200 mg capsule 400 mg PO DAILY Supplement 02/03/23 [History Last Taken Unknown] oxycodone 5 mg tablet 5 mg PO Q6H PRN pain 02/03/23 [History Last Taken Unknown] prochlorperazine edisylate 5 mg/mL injection solution 5 mg IV Q6H PRN nausea and vomiting 02/03/23 [History Last Taken 02/03/23] Allergy/AdvReac Type Severity Reaction Status Date / Time cephalexin monohydrate Allergy Hives Verified 01/15/23 10:19 [From Keflex] ethchlorvynol [From Placidyl] Allergy Unknown Verified 01/15/23 10:19 Penicillins [PCN] Allergy Unknown Verified 01/15/23 10:19 Sulfa (Sulfonamide Allergy Rash Verified 01/15/23 10:19 Antibiotics) sulfamethoxazole Allergy Unknown Verified 01/15/23 10:19 [From Septra] trimethoprim [From Septra] Allergy Unknown Verified 01/15/23 10:19 Family History Father CAD (coronary artery disease) Mother Breast cancer breast Surgical History H/O colectomy H/O shoulder surgery H/O total hysterectomy History of arthroplasty of left knee History of bunionectomy of both great toes History of evacuation of hematoma (12/10/18) History of left heart catheterization (1999) History of right knee joint replacement History of tonsillectomy and adenoidectomy Hx of cholecystectomy surgical debridement left lower extremity (10/2014) Social History household members: spouse Smoking Status: Never smoker alcohol intake: current alcohol intake frequency: holidays/special occasions only Alcohol type: wine substance use type: does not use caffeine: Yes Type: coffee Number of servings: 2 ROS Constitutional Constitutional: Denies chills, fever(s) or weight gain ENT HEENT: Denies headache(s), nasal congestion or nasal discharge Cardiovascular Cardiovascular: Denies chest pain or palpitations Respiratory/Chest Respiratory/Chest: Denies cough, excessive phlegm production or shortness of breath with exertion Gastrointestinal Gastrointestinal: Denies abdominal pain, nausea or vomiting Genitourinary Genitourinary: Denies dysuria Musculoskeletal Musculoskeletal: Denies joint pain or joint swelling Integumentary Integumentary: Denies rash or wounds Neurologic Neurologic: Denies focal weakness, numbness or tingling Psychiatric Psychiatric: Denies anxiety, auditory hallucinations, depression, homicidal ideation or suicidal ideation Physical Exam Const alert General Appearance: cooperative HEENT normocephalic Eyes PERRL and EOMs intact bilaterally Neck supple, no JVD and no carotid bruits Resp normal respiratory effort, normal air movement and clear to auscultation bilaterally Cardio regular rate and regular rhythm GI normal to inspection, nondistended, normoactive bowel sounds, non-tender and non-distended Extremity normal capillary refill Extremity Narrative: Right upper extremity PICC line. Right lower extremity dressed. General Extremity: Negative for edema Skin no rashes or lesions noted General Skin Exam: no breakdown Psych affect normal Appearance: appropriate Results Lab / Micro Data 02/04/23 05:43 02/04/23 05:43 Assessment & Plan Assessment/Plan (1) Debility: (2) Open bimalleolar fracture of right ankle: (3) Surgical site infection: (4) Atrial fibrillation: (5) Hyperlipidemia: QUALIFIERS: Hyperlipidemia type: pure hypercholesterolemia Qualified Code(s): E78.00 - Pure hypercholesterolemia, unspecified; E78.0 - Pure hypercholesterolemia (6) Vitamin D deficiency: (7) Hypothyroidism: (8) Depression: PLAN: Plan 82 year old female with below past medical history hospitalized for right ankle surgical site infection of ORIF right bimalleolar ankle fracture, underwent irrigation debridement with implant antibiotic beads 01/30/[address] Nelson, admitted to TCU with debility, here for rehabilitation, strengthening, intravenous antibiotics, prior to discharge home with . * Debility - PT/OT. * Pain - Tylenol 1000mg q6 prn pain (1-5), Oxycodone 5mg q4 prn pain (6-10). * Bowel - Miralax 17gm daily, senna/colace 2 tablets bid. * Adult immunization - Administer pneumonia vaccine, covid19 vaccine, flu vaccine as appropriate. * DVT prophylaxis - on Eliquis. * Right ankle infection - Unasyn 3gm iv q6 thru 03/14/2023, consult Dr. Echevarria for expert care. * Atrial Fibrillation - Eliquis 5mg bid. * Hyperlipidemia - Atorvastatin 20mg qhs. * Vitamin D deficiency - D3 50mcg daily. * GI prophylaxis - Lactobacillus 1 tablet twice daily * Hypothyroidism - Levothyroxine 75mcg daily. * Depression - Sertraline 75mg daily, stable chronic buttermaker helper use, GDR not recommended. * Appetite loss - Mirtazapine 7.5mg qhs, stable chronic buttermaker helper use, GDR not recommended. * Nausea - Compazine 5mg iv q4h prn nausea/vomiting.
[2023-02-03 22:44] VITALS: BP 122/62; PULSE 58; RESP 12; RESP 16; TEMP 37.1; O2SAT 95; BMI 29.7; BMI 29.9
[2023-02-04] MEDS: 0.9% Normal Saline (250mL Bag) 250 ML 15 ML IV (00:29)
[2023-02-04] MEDS: Ampicillin/Sulbactam 3 GM in 0.9% Normal Saline (100mL MB+) 100 ML IV ×4 (00:30→17:02)
[2023-02-04 05:50] LABS: Absolute Lymphocyte Count 1.43 X10^3/uL (0.83-4.51); Absolute Neutrophil Count 1.8 X10^3/uL (2.0-7.7); Basophil# 0.02 X10^3/uL; Basophil% 0.5 % (0-1); Eosinophil# 0.16 X10^3/uL; Hematocrit 34.2 % (37-47); Lymphocyte # 1.43 X10^3/ul (0.83-4.51); Lymphocyte % 35.9 % (19-41); Mean Corp Hgb Conc 32.2 g/dL (32-36); Mean Corpuscular Hgb 32.4 pg (27.0-32.0); Mean Corpuscular Volume 100.9 fL (81-99); Mean Platelet Vol. 8.7 fl (6.2-12.0); Monocyte# 0.51 X10^3/uL; Monocyte% 12.8 % (0-10); NRBC Flagged by Analyzer 0 % (0-5); Neutrophil # 1.82 X10^3/uL (2.7-7.7); Neutrophil % 45.8 % (47-70); Platelet Count 271 K/mm3 (150-450); RBC Distribution Width CV 14.1 % (11.6-14.6); Red Blood Count 3.39 M/mm3 (4.2-5.4)
[2023-02-04] MEDS: Levothyroxine 75 MCG Tablet PO (06:39)
[2023-02-04 06:41] LABS: Anion Gap 6 (5-15); BUN 7 mg/dL (7-18); BUN/Creat Ratio 9.4 RATIO (10-20); Calcium,Total 8.2 mg/dL (8.5-10.1); Chloride 109 mmol/L (98-107); Creatinine, Serum 0.74 mg/dL (0.55-1.02); EST Glomerular Filtration Rate 80 mL/min (>60); Est Glom Filt Rate - Afr Amer 97 mL/min (>60); Glucose 92 mg/dL (74-106); Potassium 3.7 mmol/L (3.5-5.1); Sodium Level 139 mmol/L (136-145)
[2023-02-04] MEDS: 0.9 % NaCl (Sterile) Posiflush 10 mL IV ×4 (08:11→21:54)
[2023-02-04] MEDS: Sertraline 50 MG Tablet 75 MG PO (08:12)
[2023-02-04] MEDS: APIXABAN 5 MG TABLET PO ×2 (08:12→21:55)
[2023-02-04] MEDS: Cholecalciferol (VIT D3) 25 MCG TABLET (1,000 UNITS) 50 MCG PO (08:12)
[2023-02-04] MEDS: Juven (unflavored) Packet 1 PACKET PO ×2 (08:12→17:03)
[2023-02-04] MEDS: proCHLORPERazine 10 MG/2 ML Vial 5 MG IV ×3 (08:13→21:54)
--- NOTE | 2023-02-04 09:18 | NURSING ---
Letter Of Credit Clerk Note; Activity Asset: Oswald Jones has returned to TCU for continued therapy and remains independent in her choice of daily activities. She continues to use her computer for puzzles along with reading, watching tv, visits with family and caodaism members. At this time she stated she prefers to do activities in her room. Staff will remind her of daily activities and respect her right to say no.
--- NOTE | 2023-02-04 12:08 | CASEMGMT ---
Social Work Pt is a readmit. No changes to assessment. 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
--- NOTE | 2023-02-04 13:09 | PCM.CONS.GEN ---
Assessment & Plan Assessment/Plan (1) Surgical site infection: PLAN: R ankle hardware infection s/p ORIF - wound cx with bacillus and enterococcus. OR 01/30/[address] [facility]. On unasyn for planned 6 week course, stop date planned for 03/13/23. covid - (+) 01/25/23, likely can come out of isolation now that it has been 10 days since (+). Will follow, thank you (2) Rheumatoid arthritis: (3) COVID: HPI Consult Data Date of Consult: 02/04/23 HPI Narrative Reason for Consultation: osteo HPI Narrative: BRADLEY GILMORE, is a 82 F who had R ankle ORIF 01/16/23 after fall with fracture. Admitted to [facility] after developing green drainage at TCU on 01/28/23. Wound cx with bacillus and enterococcus. Taken to OR 01/30 for I&D. Vanc/zosyn narrowed to unasyn by ID for planned 6 weeks abx. Covid (+) since 01/25. Feeling ok, R ankle sore, some headache, some nausea Full ROS performed and neg except as noted above. 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 Open wound of right buttock with complication 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 Paroxysmal atrial fibrillation Peptic ulcer disease Rheumatoid arthritis Traumatic hematoma of buttock Vitamin D deficiency Home Medications sertraline 100 mg tablet 75 mg PO DAILY mood/depression 10/17/14 [History Last Taken 03/21/18 10:55] handicap placcard #1 ea 05/07/20 [Rx Last Taken Unknown] levothyroxine 75 mcg tablet 75 mcg PO DAILY thyroid 02/05/21 [History Last Taken Unknown] ergocalciferol (vitamin D2) 50 mcg (2,000 unit) capsule 50 mcg PO DAILY supplement 07/27/21 [History Last Taken Unknown] atorvastatin 20 mg tablet 20 mg PO QHS cholesterol #90 tabs 09/25/21 [Rx Last Taken Unknown] apixaban 5 mg tablet (Eliquis) 5 mg PO BID blood thinner 04/27/22 [History Last Taken Unknown] amiodarone 200 mg tablet 100 mg PO DAILY heart 01/15/23 [History Last Taken 01/18/23] Lactobacillus rhamnosus GG 10 billion cell capsule 1 cap PO DAILY Supplement 02/03/23 [History Last Taken Unknown] acetaminophen 500 mg tablet (Acetaminophen Extra Strength) 500 mg PO Q8H PRN PRN pain 02/03/23 [History Last Taken 02/03/23] ampicillin-sulbactam 3 gram intravenous solution 3 g IV Q6H Right ankle infection 02/03/23 [History Last Taken Unknown] cranberry extract 200 mg capsule 400 mg PO DAILY Supplement 02/03/23 [History Last Taken Unknown] oxycodone 5 mg tablet 5 mg PO Q6H PRN pain 02/03/23 [History Last Taken Unknown] prochlorperazine edisylate 5 mg/mL injection solution 5 mg IV Q6H PRN nausea and vomiting 02/03/23 [History Last Taken 02/03/23] Allergy/AdvReac Type Severity Reaction Status Date / Time cephalexin monohydrate Allergy Hives Verified 01/15/23 10:19 [From Keflex] ethchlorvynol [From Placidyl] Allergy Unknown Verified 01/15/23 10:19 Penicillins [PCN] Allergy Unknown Verified 01/15/23 10:19 Sulfa (Sulfonamide Allergy Rash Verified 01/15/23 10:19 Antibiotics) sulfamethoxazole Allergy Unknown Verified 01/15/23 10:19 [From Septra] trimethoprim [From Septra] Allergy Unknown Verified 01/15/23 10:19 Family History Father CAD (coronary artery disease) Mother Breast cancer breast Surgical History H/O colectomy H/O shoulder surgery H/O total hysterectomy History of arthroplasty of left knee History of bunionectomy of both great toes History of evacuation of hematoma (03/20/18) History of left heart catheterization (1999) History of right knee joint replacement History of tonsillectomy and adenoidectomy Hx of cholecystectomy surgical debridement left lower extremity (10/2014) Social History household members: spouse Smoking Status: Never smoker alcohol intake: current alcohol intake frequency: holidays/special occasions only Alcohol type: wine substance use type: does not use caffeine: Yes Type: coffee Number of servings: 2 Physical Exam Const alert and no apparent distress General Appearance: cooperative HEENT normocephalic and head/scalp atraumatic Eyes PERRL and EOMs intact bilaterally Neck supple and No nodes Resp normal air movement and clear to auscultation bilaterally Cardio regular rate and regular rhythm GI soft to palpation, non-tender and non-distended Extremity General Extremity: edema Skin no rashes or lesions noted Skin Narrative: RLE wrapped Neuro CN's II-XII intact bilaterally Lab / Micro Data Attestation: I reviewed the patient's lab results. 02/04/23 05:43 02/04/23 05:43 Labs: Laboratory Results - last 24 hr 02/04/23 05:43: WBC 4.0 L, RBC 3.39 L, Hgb 11.0 L, Hct 34.2 L, MCV 100.9 H, MCH 32.4 H, MCHC 32.2, RDW Std Deviation 51.0 H, RDW Coeff of Jessica 14.1, Plt Count 271, MPV 8.7, Immature Gran % (Auto) 1.000 H, Neut % (Auto) 45.8 L, Lymph % (Auto) 35.9, [place] % (Auto) 12.8 H, Eos % (Auto) 4.0, Baso % (Auto) 0.5, Absolute Neuts (auto) 1.8 L, Absolute Lymphs (auto) 1.43, Nucleated RBC % 0, Sodium 139, Potassium 3.7, Chloride 109 H, Carbon Dioxide 24.0, Anion Gap 6, BUN 7, Creatinine 0.74, Estim Creat Clear Calc 38.10, Est GFR (MDRD) Af Amer 97, Est GFR (MDRD) Non-Af 80, BUN/Creatinine Ratio 9.4 L, Glucose 92, Calcium 8.2 L
[2023-02-04 14:22] VITALS: BP 150/79; PULSE 60; RESP 18; TEMP 37.1; O2SAT 95
[2023-02-04] MEDS: Acetaminophen 500 MG Tablet 1000 MG PO (18:15)
[2023-02-04 21:51] VITALS: BP 160/65; PULSE 60
[2023-02-04] MEDS: Atorvastatin Calcium 20 MG Tablet PO (21:55)
[2023-02-04] MEDS: Mirtazapine 15 MG Tablet 7.5 MG PO (21:55)
[2023-02-05] MEDS: Acetaminophen 500 MG Tablet 1000 MG PO (00:57)
[2023-02-05] MEDS: Ampicillin/Sulbactam 3 GM in 0.9% Normal Saline (100mL MB+) 100 ML IV ×5 (00:57→23:29)
[2023-02-05] MEDS: 0.9 % NaCl (Sterile) Posiflush 10 mL IV ×2 (00:57→09:39)
[2023-02-05] MEDS: Levothyroxine 75 MCG Tablet PO (05:18)
[2023-02-05] MEDS: APIXABAN 5 MG TABLET PO ×2 (08:13→23:23)
[2023-02-05] MEDS: Juven (unflavored) Packet 1 PACKET PO ×2 (08:13→17:12)
[2023-02-05] MEDS: Sertraline 50 MG Tablet 75 MG PO (08:14)
[2023-02-05] MEDS: Cholecalciferol (VIT D3) 25 MCG TABLET (1,000 UNITS) 50 MCG PO (08:14)
[2023-02-05] MEDS: proCHLORPERazine 10 MG/2 ML Vial 5 MG IV (09:39)
[2023-02-05 15:37] VITALS: BP 161/70; PULSE 62; RESP 14; TEMP 36.6; O2SAT 94
[2023-02-05] MEDS: 0.9% Saline Lock 10 ML Syringe IV (18:57)
[2023-02-05] MEDS: Atorvastatin Calcium 20 MG Tablet PO (23:23)
[2023-02-05] MEDS: Mirtazapine 15 MG Tablet 7.5 MG PO (23:23)
[2023-02-05] MEDS: 0.9% Normal Saline (250mL Bag) 250 ML 100 ML IV (23:41)
[2023-02-06] MEDS: Ampicillin/Sulbactam 3 GM in 0.9% Normal Saline (100mL MB+) 100 ML IV ×3 (06:14→17:39)
[2023-02-06] MEDS: 0.9 % NaCl (Sterile) Posiflush 10 mL IV ×3 (06:15→17:39)
[2023-02-06] MEDS: Levothyroxine 75 MCG Tablet PO (06:15)
[2023-02-06 07:29] LABS: Hematocrit 35.5 % (37-47); Hemoglobin 11.2 g/dL (12.0-15.0)
[2023-02-06] MEDS: Juven (unflavored) Packet 1 PACKET PO ×2 (10:53→17:39)
[2023-02-06] MEDS: APIXABAN 5 MG TABLET PO ×2 (10:53→22:57)
[2023-02-06] MEDS: Sertraline 50 MG Tablet 75 MG PO (10:54)
[2023-02-06] MEDS: Cholecalciferol (VIT D3) 25 MCG TABLET (1,000 UNITS) 50 MCG PO (10:54)
--- NOTE | 2023-02-06 12:13 | PHA.CONS_ITS ---
Documented by User: Garry Cotton 02/06/23 13:34 TCU RX Drug Regimen Review Subjective/Objective Subjective/Objective: Subjective: 82 year old female with below past medical history hospitalized for right ankle surgical site infection of ORIF right bimalleolar ankle fracture, underwent irrigation debridement with implant antibiotic beads 01/30/[address] Nelson, admitted to TCU with debility, here for rehabilitation, strengthening, intravenous antibiotics, prior to discharge home with . Objective: Allergies cephalexin monohydrate [From Keflex] Allergy (Verified 01/15/23 10:19) Hives ethchlorvynol [From Placidyl] Allergy (Verified 01/15/23 10:19) Unknown Penicillins [PCN] Allergy (Verified 01/15/23 10:19) Unknown Sulfa (Sulfonamide Antibiotics) Allergy (Verified 01/15/23 10:19) Rash sulfamethoxazole [From Septra] Allergy (Verified 01/15/23 10:19) Unknown trimethoprim [From Septra] Allergy (Verified 01/15/23 10:19) Unknown Current Medications Generic Name Dose Route Start Last Admin Trade Name Freq PRN Reason Stop Dose Admin Acetaminophen 1,000 mg 02/03/23 22:49 02/05/23 00:57 Acetaminophen 500 Mg Tablet PO 1,000 mg Q6H PRN PRN Administration Pain Score 1-5 Apixaban 5 mg 02/04/23 10:00 02/06/23 10:53 Apixaban 5 Mg Tablet PO 5 mg BID ERIK Administration Atorvastatin Calcium 20 mg 02/04/23 22:00 02/05/23 23:23 Atorvastatin Calcium 20 Mg Tablet PO 20 mg QHS ERIK Administration Cholecalciferol 50 mcg 02/04/23 10:00 02/06/23 10:54 Cholecalciferol (Vit D3) 25 Mcg Tablet (1,000 Units) PO 50 mcg DAILY ERIK Administration Heparin Sodium (Beef Lung) 50 units 02/03/23 22:45 Heparin Pf Lock 10 Units/Ml 50 Units/5 Ml Syringe IV UD PRN PICC Line Heparin Flush Ampicillin Sodium/Sulbactam 112 mls @ 150 mls/hr 02/04/23 00:00 02/06/23 11:05 Sodium 3 gm/ Sodium Chloride IV 03/14/23 23:59 150 mls/hr Q6 ERIK Administration Sodium Chloride 250 mls @ 15 mls/hr 10/26/23 23:53 02/06/23 12:07 IV Infused .[id number] PRN Infusion Additional IVPB Infusion Sodium Chloride 250 mls @ 15 mls/hr 02/03/23 23:53 IV .[id number] PRN Saline Flush L-Arginine/L-Glutamine/Calcium HMB 1 packet 02/04/23 08:00 02/06/23 10:53 Rivera (Unflavored) Packet PO 1 packet BIDCM ERIK Administration Lactobacillus Acidophilus 1 tablet 02/04/23 10:00 02/06/23 10:54 Lactobacillus Acidophilus PO 1 tablet BID ERIK Administration Levothyroxine Sodium 75 mcg 02/04/23 06:00 02/06/23 06:15 Levothyroxine 75 Mcg Tablet PO 75 mcg 0600 ERIK Administration Mirtazapine 7.5 mg 02/04/23 22:00 02/05/23 23:23 Mirtazapine 15 Mg Tablet PO 7.5 mg QHS ERIK Administration Oxycodone HCl 5 mg 02/03/23 22:49 Oxycodone 5 Mg Tablet PO Q4H PRN PRN Pain Score 6-10 Polyethylene Glycol 17 gm 02/04/23 10:00 02/06/23 10:53 Polyethylene Glycol 3350 17 Gm Packet PO Not Given DAILY ERIK Prochlorperazine Edisylate 5 mg 02/03/23 22:48 02/05/23 09:39 Prochlorperazine 10 Mg/2 Ml Vial IV 5 mg Q4H PRN PRN Administration NAUSEA/VOMITING Senna/Docusate Sodium 2 tablet 02/04/23 10:00 02/06/23 10:54 Senna/Docusate Sodium 1 Tablet PO Not Given BID ERIK Sertraline HCl 75 mg 02/04/23 10:00 02/06/23 10:54 Sertraline 50 Mg Tablet PO 75 mg DAILY ERIK Administration Sodium Chloride 10 - 40 ml 02/03/23 22:45 02/06/23 11:05 0.9 % Nacl (Sterile) Posiflush 10 Ml IV 10 ml UD PRN Administration Port access or dressing change Sodium Chloride 10 - 40 ml 02/03/23 22:45 02/05/23 18:57 0.9% Saline Lock 10 Ml Syringe IV 10 ml UD PRN Administration Open End PICC Flush Tuberculin PPD 0.1 ml 02/11/23 10:00 Tuberculin,Purif.Prot.Deriv. 50 Tu/Ml Vial ID 02/11/23 10:01 X1 ONE Problem List (Updated 02/05/23 @ 00:09 by Allen Jensen) COVID (Acute) Surgical site infection (Acute) Vitamin D deficiency (Acute) Depression (Acute) Hypothyroidism (Acute) Rheumatoid arthritis (Acute) Atrial fibrillation (Acute) Debility (Acute) Hyperlipidemia (Chronic) Vital Signs Temp Pulse Resp BP Pulse Ox O2 Del Method 98 F 62 14 161/70 H 94 Room Air 02/05/23 15:37 02/05/23 15:37 02/05/23 15:37 02/05/23 15:37 02/05/23 15:37 02/05/23 23:15 Oxygen Delivery Method Room Air Weight: 79.152 kg Body Mass Index (BMI) 29.9 Sodium 139 mmol/L (136-145) 02/04/23 05:43 Potassium 3.7 mmol/L (3.5-5.1) 02/04/23 05:43 Chloride 109 mmol/L (98-107) H 02/04/23 05:43 Carbon Dioxide 24.0 mmol/L (21.0-32.0) 02/04/23 05:43 Anion Gap 6 (5-15) 02/04/23 05:43 BUN 7 mg/dL (7-18) 02/04/23 05:43 Creatinine 0.74 mg/dL (0.55-1.02) 02/04/23 05:43 Est GFR (MDRD) Af Amer 97 mL/min (>60) 02/04/23 05:43 Est GFR (MDRD) Non-Af 80 mL/min (>60) 02/04/23 05:43 BUN/Creatinine Ratio 9.4 RATIO (10-20) L 02/04/23 05:43 Glucose 92 mg/dL (74-106) 02/04/23 05:43 Assessment/Plan: 1. Pain: acetaminophen 1000 mg PO Q6H PRN pain (1-5), oxycodone 5 mg PO Q4H PRN pain (6-10). The patient has used 2 doses of PRN acetaminophen and 0 doses of o xycodone so far this admission. Please continue to monitor for pain levels, PRN medication usage, LFTs (AST/ALT = 30/26 U/L on 01/28/23), for drowsiness/dizziness, sedation/ataxia/syncope, constipation, and respiratory depression. 2. Bowel: polyethylene glycol 17 grams PO daily, senna/docusate 2 tablets PO BID. The patient's last documented bowel movement was on 01/28/23. Please continue to monitor for diarrhea/constipation. The patient does not have a documented bowel movement for 9 days, please consider adding a PRN agent such as magnesium citrate 300 mL PO daily PRN constipation. 3. Right ankle infection: ampicillin/sulbactam 3 grams IV Q6H until 03/14/23. Please continue to monitor for s/s of infection such as redness/swelling/warmth at ankle, for fevers (recent temps = 96.8-99.3 F), white blood cell counts (WBC = 4.0 K/mm3 on 02/04/23), renal function (serum creatinine = 0.74 mg/dL with creatinine clearance = 38 mL/min on 02/04/23), and for diarrhea. 4. Atrial fibrillation: apixaban 5 mg PO BID. Please continue to monitor for s/s that the patient is in atrial fibrillation such as palpitations, heart rates (recent range = 58-62 beats/min), for s/s of stroke, serum creatinine (serum creatinine = 0.74 mg/dL on 02/05/32), for s/s of bleeding or for excessive bruising, hemoglobin levels (Hgb = 11.2 g/dL on 02/06/23), and platelet counts (PLT = 271 K/mm3 on 02/04/23). 5. Hyperlipidemia: atorvastatin 20 mg PO QHS. Please continue to monitor lipid levels (cholesterol = 154 mg/dL with LDL = 79 mg/dL on 12/11/19), LFTs (AST/ALT = 30/26 U/L on 01/28/23), and for myopathies. Please consider re-ordering a lipid panel for the patient as they have not had one on 3 years. 6. Hypothyroidism: levothyroxine 75 mcg PO daily. Please continue to monitor for s/s of hypo/hyperthyroidism and thyroid function tests (TSH = 1.95 uIU/mL with free T4 = 12.4 ug/dL on 12/10/22). Please consider ordering a repeat thyroid function test as the patient does not have recent levels documented. 7. GI prophylaxis: lactobacillus 1 tablet PO BID. Please continue to monitor for diarrhea and for GI distress. 8. Vitamin D deficiency: cholecalciferol 50 mcg PO daily. Please continue to monitor for s/s of vitamin D deficiency, and vitamin D levels (no recent vitamin D levels documented). Please consider ordering a vitamin D level to assess repletion status as the patient does not have a recent vitamin D level documented. 9. Nutrition: Rivera 1 packet PO BID with meals. Please continue to monitor nutritional status. 10. Nausea: prochlorperazine 5 mg IV Q4H PRN nausea. The patient has used 4 d oses of PRN prochlorperazine so far this admission. Please continue to monitor for nausea, PRN medication usage, for anticholinergic side effects such as dry mouth, dry eyes, urinary retention, constipation and delirium, for orthostasis, movement disorders and NMS. Assessment/Plan for indications treated with psychotropic medications: 1. Depression: sertraline 75 mg PO daily. Please see provider notes regarding stable chronic long-term use GDR not recommended. Please continue to monitor for s/s of depression, for SI, for serotonin syndrome, sodium levels (Na = 139 mm ol/L on 02/04/23), and diarrhea. 2. Appetite lose: mirtazapine 7.5 mg PO QHS. Please see provider note regarding stable chronic long-term therapy GDR not recommended. Please continue to monitor appetite, for SI, for movement issues, for s/s of orthostasis, for sedation and SI. Medical chart and medication regimen reviewed. The following medication irregularities or issues were identified: 1. Bowel: polyethylene glycol 17 grams PO daily, senna/docusate 2 tablets PO BID. The patient does not have a documented bowel movement for 9 days, please consider adding a PRN agent such as magnesium citrate 300 mL PO daily PRN constipation. 2. Hyperlipidemia: atorvastatin 20 mg PO QHS. Please consider re-ordering a lipid panel for the patient as they have not had one on 3 years. 3. Hypothyroidism: levothyroxine 75 mcg PO daily. Please consider ordering a repeat thyroid function test as the patient does not have recent levels documented. 4. Vitamin D deficiency: cholecalciferol 50 mcg PO daily. Please consider ordering a vitamin D level to assess repletion status as the patient does not have a recent vitamin D level documented. Date Date of Note:: 02/06/23 Documented by User: Dr. Mac Jaimes MD 02/06/23 16:24 TCU RX Drug Regimen Review Provider Comments Provider responsibility Provider Comments to Recommendations by Pharmacy: Agree
[2023-02-06 12:49] VITALS: BP 162/70; PULSE 57; RESP 16; TEMP 36.9; O2SAT 96
[2023-02-06] MEDS: Atorvastatin Calcium 20 MG Tablet PO (22:57)
[2023-02-06] MEDS: Mirtazapine 15 MG Tablet 7.5 MG PO (22:58)
[2023-02-06] MEDS: Acetaminophen 500 MG Tablet 1000 MG PO (23:01)
[2023-02-07] MEDS: Ampicillin/Sulbactam 3 GM in 0.9% Normal Saline (100mL MB+) 100 ML IV ×5 (00:04→23:06)
[2023-02-07] MEDS: 0.9 % NaCl (Sterile) Posiflush 10 mL IV ×2 (05:57→12:30)
[2023-02-07] MEDS: 0.9% Normal Saline (250mL Bag) 250 ML 100 ML IV (06:01)
[2023-02-07] MEDS: APIXABAN 5 MG TABLET PO ×2 (09:44→22:46)
[2023-02-07] MEDS: Cholecalciferol (VIT D3) 25 MCG TABLET (1,000 UNITS) 50 MCG PO (09:44)
[2023-02-07] MEDS: Juven (unflavored) Packet 1 PACKET PO ×2 (09:44→17:07)
[2023-02-07] MEDS: Sertraline 50 MG Tablet 75 MG PO (09:44)
[2023-02-07] MEDS: Levothyroxine 75 MCG Tablet PO (09:45)
[2023-02-07] MEDS: Acetaminophen 500 MG Tablet 1000 MG PO (09:57)
--- NOTE | 2023-02-07 11:02 | NURSING ---
Offered covid vaccine, education about vaccine provided. Patient refuses at this time.
--- NOTE | 2023-02-07 12:47 | NURSING ---
Call back from surgeon's office for follow-up. Scheduled for Feb.14 @0531. Updated patient and left VM with Dtr Danisha updating her.
[2023-02-07 14:29] VITALS: BP 151/64; PULSE 66; RESP 18; TEMP 36.8; O2SAT 96
--- NOTE | 2023-02-07 18:50 | NURSING ---
Patient c/o oral tenderness and swallowing. Patient oral assessment completed. Patient is noted to have red gums and tongue w/ small ulcerations. Concern for thrush. Note left for MD.
[2023-02-07] MEDS: Atorvastatin Calcium 20 MG Tablet PO (22:46)
[2023-02-07] MEDS: Mirtazapine 15 MG Tablet 7.5 MG PO (22:46)
[2023-02-08] MEDS: Ampicillin/Sulbactam 3 GM in 0.9% Normal Saline (100mL MB+) 100 ML IV ×3 (05:27→17:28)
[2023-02-08] MEDS: Levothyroxine 75 MCG Tablet PO (05:27)
[2023-02-08] MEDS: Juven (unflavored) Packet 1 PACKET PO ×2 (08:08→17:25)
[2023-02-08] MEDS: APIXABAN 5 MG TABLET PO ×2 (08:09→21:36)
[2023-02-08] MEDS: Cholecalciferol (VIT D3) 25 MCG TABLET (1,000 UNITS) 50 MCG PO (08:09)
[2023-02-08] MEDS: Sertraline 50 MG Tablet 75 MG PO (08:10)
[2023-02-08 12:00] VITALS: BMI 30.1
[2023-02-08] MEDS: 0.9% Normal Saline (250mL Bag) 250 ML 100 ML IV (12:17)
[2023-02-08] MEDS: 0.9 % NaCl (Sterile) Posiflush 10 mL IV (12:18)
[2023-02-08] MEDS: Acetaminophen 500 MG Tablet 1000 MG PO (13:39)
[2023-02-08] MEDS: NYSTATIN 500,000 UNIT/5 ML UDC 500000 UNIT PO ×3 (13:50→21:36)
[2023-02-08 14:44] VITALS: BP 153/69; PULSE 81; RESP 16; TEMP 36.6; O2SAT 97
[2023-02-08] MEDS: Mirtazapine 15 MG Tablet 7.5 MG PO (21:35)
[2023-02-08] MEDS: Atorvastatin Calcium 20 MG Tablet PO (21:35)
[2023-02-09] MEDS: 0.9 % NaCl (Sterile) Posiflush 10 mL IV ×6 (00:29→16:58)
[2023-02-09] MEDS: Ampicillin/Sulbactam 3 GM in 0.9% Normal Saline (100mL MB+) 100 ML IV ×4 (00:30→16:57)
[2023-02-09] MEDS: Levothyroxine 75 MCG Tablet PO (06:39)
[2023-02-09] MEDS: NYSTATIN 500,000 UNIT/5 ML UDC 500000 UNIT PO ×4 (06:39→21:46)
[2023-02-09] MEDS: Juven (unflavored) Packet 1 PACKET PO ×2 (09:07→16:53)
[2023-02-09] MEDS: APIXABAN 5 MG TABLET PO ×2 (09:07→21:47)
[2023-02-09] MEDS: Cholecalciferol (VIT D3) 25 MCG TABLET (1,000 UNITS) 50 MCG PO (09:08)
[2023-02-09] MEDS: Sertraline 50 MG Tablet 75 MG PO (09:08)
[2023-02-09] MEDS: Glycerin/Hypromellose/PEG400 15 ml Bottle 2 DRP EACH EYE ×2 (10:30→21:48)
--- NOTE | 2023-02-09 14:12 | CHAPLAIN ---
Type of Pastoral Visit _x__ Initial Visit ___ Follow-up Visit ___ On-call Visit ___ General Patient Visit ___ Spiritual Assessment ___ Family Conference ___ Bereavement ___ Rapid Response ___ Code Blue ___ Other (describe below) Pastoral Care Referral From _x__ Patient ___ Family ___ Nurse ___ Physician ___ Senior Electronics Technician ___ Digital Content Marketing Manager ___ Other (describe below) Sacrament/Intervention _x__ Active listening ___ Anointing ___ Denominational ___ Bereavement ___ Communion _x__ Alva exploration ___ _x__ Life review _x__ Prayer ___ Reconciliation ___ Sacrament of Sick _x__ Supportive presence ___ Wedding ___ Other (describe below) Pastoral Comments patient reviews her fall, following surgeries, complications, and now rehab with antibiotic therapies; pt has good family support and uses alva resources to bring encouragement and hope; pt is talkative, is welcoming, and seeks prayer support; pt shows this bridge opener a set of notes with bible verses that her daughter gives to others for encouragement so that someone else can be encouraged too;
[2023-02-09 14:22] VITALS: BP 145/69; PULSE 69; RESP 16; TEMP 36.7; O2SAT 96
[2023-02-09] MEDS: Mirtazapine 15 MG Tablet 7.5 MG PO (21:47)
[2023-02-09] MEDS: Atorvastatin Calcium 20 MG Tablet PO (21:47)
[2023-02-10] MEDS: 0.9% Saline Lock 10 ML Syringe IV ×4 (00:07→07:29)
[2023-02-10] MEDS: 0.9% Normal Saline (250mL Bag) 250 ML 15 ML IV (00:07)
[2023-02-10] MEDS: Ampicillin/Sulbactam 3 GM in 0.9% Normal Saline (100mL MB+) 100 ML IV ×4 (00:08→17:16)
[2023-02-10] MEDS: NYSTATIN 500,000 UNIT/5 ML UDC 500000 UNIT PO ×4 (06:12→21:02)
[2023-02-10] MEDS: Levothyroxine 75 MCG Tablet PO (06:12)
[2023-02-10] MEDS: APIXABAN 5 MG TABLET PO ×2 (08:16→21:01)
[2023-02-10] MEDS: Cholecalciferol (VIT D3) 25 MCG TABLET (1,000 UNITS) 50 MCG PO (08:16)
[2023-02-10] MEDS: Sertraline 50 MG Tablet 75 MG PO (08:16)
[2023-02-10] MEDS: Juven (unflavored) Packet 1 PACKET PO ×2 (08:16→17:16)
[2023-02-10] MEDS: Glycerin/Hypromellose/PEG400 15 ml Bottle 2 DRP EACH EYE ×3 (08:16→21:02)
[2023-02-10] MEDS: Arthritis Pain Compound 60 CLICK TUBE TOPICAL ×2 (11:11→21:01)
--- NOTE | 2023-02-10 11:21 | CASEMGMT ---
Addendum entered by Taylor Ramon 02/11/23 09:51: Insurance verified by [employer]. Drug copay per week $95 OOP $3,500 - met $2,334 patient has 20% responsibility until met. Patient is covered at 100 % once the annual deductible and OOP requirements are met, per their agreement with their health plan. SW phoned dtr to update and advised if she had further questions on meeting the OOP cost, to contact pt's insurance company. Dtr appreciative. SW will continue to follow. Addendum entered by Taylor Ramon 02/10/23 11:37: Per review of ID note, IV ATB stop date is 03/13. BIMS () and PHQ-9 (12/05) completed for MDS assessment. Original Note: Social Work IDT met with patient and dtr for care plan meeting. Discussed patient's progress in PT/OT/SN. Educated to [employer] with NRD 02/21, EDC 02/28. Pt is practicing car tx with dtr and therapy this date to prepare for f/u appt 02/14. Pt has IV ATB Q6 through 03/16. Pt is antsy to go home and would like dtr to administer IVs. However, d/t to the frequency, dtr unsure if her schedule will allow that. SW offered to get pricing at home to also help make a decision. Pt/dtr agreeable. SW to follow for DC planning. Sent referral to [facility] for infusion referral. Will await outcome and update pt/dtr. OLAMIDE Whitaker
[2023-02-10] MEDS: 0.9 % NaCl (Sterile) Posiflush 10 mL IV ×2 (12:14→17:16)
[2023-02-10 14:55] VITALS: BP 141/63; PULSE 66; RESP 16; TEMP 36.3; O2SAT 95
[2023-02-10] MEDS: Atorvastatin Calcium 20 MG Tablet PO (21:01)
[2023-02-10] MEDS: Mirtazapine 15 MG Tablet 7.5 MG PO (21:02)
[2023-02-11] MEDS: Ampicillin/Sulbactam 3 GM in 0.9% Normal Saline (100mL MB+) 100 ML IV ×5 (01:06→23:38)
[2023-02-11] MEDS: 0.9 % NaCl (Sterile) Posiflush 10 mL IV ×4 (01:06→17:39)
[2023-02-11] MEDS: Levothyroxine 75 MCG Tablet PO (05:52)
[2023-02-11] MEDS: NYSTATIN 500,000 UNIT/5 ML UDC 500000 UNIT PO ×4 (05:52→20:59)
[2023-02-11 05:54] LABS: Absolute Lymphocyte Count 1.84 X10^3/uL (0.83-4.51); Absolute Neutrophil Count 3.9 X10^3/uL (2.0-7.7); Basophil# 0.05 X10^3/uL; Basophil% 0.7 % (0-1); Eosinophil# 0.32 X10^3/uL; Eosinophils% 4.6 % (0-5); Hematocrit 34.9 % (37-47); Hemoglobin 10.6 g/dL (12.0-15.0); Lymphocyte # 1.84 X10^3/ul (0.83-4.51); Lymphocyte % 26.2 % (19-41); Mean Corp Hgb Conc 30.4 g/dL (32-36); Mean Corpuscular Hgb 32.5 pg (27.0-32.0); Mean Corpuscular Volume 107.1 fL (81-99); Mean Platelet Vol. 9.6 fl (6.2-12.0); Monocyte# 0.91 X10^3/uL; NRBC Flagged by Analyzer 0 % (0-5); Neutrophil # 3.85 X10^3/uL (2.7-7.7); Neutrophil % 54.8 % (47-70); Platelet Count 247 K/mm3 (150-450); RBC Distribution Width CV 14.6 % (11.6-14.6); Red Blood Count 3.26 M/mm3 (4.2-5.4)
[2023-02-11 06:12] LABS: Anion Gap 3 (5-15); BUN 30 mg/dL (7-18); BUN/Creat Ratio 31.5 RATIO (10-20); Calcium,Total 8.7 mg/dL (8.5-10.1); Chloride 112 mmol/L (98-107); Creatinine, Serum 0.95 mg/dL (0.55-1.02); EST Glomerular Filtration Rate 60 mL/min (>60); Est Glom Filt Rate - Afr Amer 72 mL/min (>60); Estimated Creatinine Clearance 40.11 ml/min; Glucose 95 mg/dL (74-106); Potassium 4.1 mmol/L (3.5-5.1); Sodium Level 143 mmol/L (136-145)
[2023-02-11] MEDS: Juven (unflavored) Packet 1 PACKET PO ×2 (08:14→17:38)
[2023-02-11] MEDS: APIXABAN 5 MG TABLET PO ×2 (08:15→21:00)
[2023-02-11] MEDS: Cholecalciferol (VIT D3) 25 MCG TABLET (1,000 UNITS) 50 MCG PO (08:16)
[2023-02-11] MEDS: Sertraline 50 MG Tablet 75 MG PO (08:16)
[2023-02-11] MEDS: Arthritis Pain Compound 60 CLICK TUBE TOPICAL ×2 (08:19→20:59)
--- NOTE | 2023-02-11 09:01 | NURSING ---
Auto Adjudication Specialist Note; MDS for 02/10 Complete
[2023-02-11] MEDS: Tuberculin,Purif.prot.deriv. 50 TU/ML Vial 0.1 ML ID (10:57)
[2023-02-11] MEDS: Menthol/Lanolin/Calamine/Znox 113 GM Tube 1 APPLIC TOPICAL ×2 (14:15→20:59)
[2023-02-11 14:58] VITALS: BP 133/65; PULSE 74; RESP 18; TEMP 36.8; O2SAT 94
[2023-02-11] MEDS: Glycerin/Hypromellose/PEG400 15 ml Bottle 2 DRP EACH EYE (20:58)
[2023-02-11 21:00] VITALS: PULSE 72; RESP 16; O2SAT 97
[2023-02-11] MEDS: Mirtazapine 15 MG Tablet 7.5 MG PO (21:00)
[2023-02-11] MEDS: Atorvastatin Calcium 20 MG Tablet PO (21:00)
[2023-02-11] MEDS: 0.9% Normal Saline (250mL Bag) 250 ML 15 ML IV (23:33)
[2023-02-11] MEDS: 0.9% Saline Lock 10 ML Syringe IV (23:34)
[2023-02-12] MEDS: 0.9% Saline Lock 10 ML Syringe IV ×2 (00:44→05:51)
[2023-02-12] MEDS: Levothyroxine 75 MCG Tablet PO (05:51)
[2023-02-12] MEDS: NYSTATIN 500,000 UNIT/5 ML UDC 500000 UNIT PO ×4 (05:51→20:42)
[2023-02-12] MEDS: Menthol/Lanolin/Calamine/Znox 113 GM Tube 1 APPLIC TOPICAL ×3 (06:05→20:41)
[2023-02-12] MEDS: Ampicillin/Sulbactam 3 GM in 0.9% Normal Saline (100mL MB+) 100 ML IV ×3 (06:05→17:31)
[2023-02-12] MEDS: Glycerin/Hypromellose/PEG400 15 ml Bottle 2 DRP EACH EYE ×3 (06:10→20:50)
[2023-02-12 06:14] VITALS: PULSE 68; RESP 18; O2SAT 95
[2023-02-12] MEDS: Sertraline 50 MG Tablet 75 MG PO (08:27)
[2023-02-12] MEDS: APIXABAN 5 MG TABLET PO ×2 (08:27→20:40)
[2023-02-12] MEDS: Cholecalciferol (VIT D3) 25 MCG TABLET (1,000 UNITS) 50 MCG PO (08:28)
[2023-02-12] MEDS: Arthritis Pain Compound 60 CLICK TUBE TOPICAL ×2 (08:28→20:40)
[2023-02-12] MEDS: Juven (unflavored) Packet 1 PACKET PO ×2 (08:28→17:31)
[2023-02-12] MEDS: 0.9 % NaCl (Sterile) Posiflush 10 mL IV ×2 (12:25→17:31)
[2023-02-12 14:59] VITALS: BP 134/59; PULSE 62; RESP 16; TEMP 36.5; O2SAT 93
[2023-02-12] MEDS: Atorvastatin Calcium 20 MG Tablet PO (20:41)
[2023-02-12] MEDS: Mirtazapine 15 MG Tablet 7.5 MG PO (20:44)
[2023-02-13] MEDS: 0.9 % NaCl (Sterile) Posiflush 10 mL IV ×4 (00:08→17:10)
[2023-02-13] MEDS: Ampicillin/Sulbactam 3 GM in 0.9% Normal Saline (100mL MB+) 100 ML IV ×5 (00:10→23:46)
[2023-02-13] MEDS: 0.9% Normal Saline (250mL Bag) 250 ML 15 ML IV (00:12)
[2023-02-13] MEDS: Menthol/Lanolin/Calamine/Znox 113 GM Tube 1 APPLIC TOPICAL ×3 (05:54→19:45)
[2023-02-13] MEDS: Acetaminophen 500 MG Tablet 1000 MG PO ×2 (05:55→19:41)
[2023-02-13] MEDS: NYSTATIN 500,000 UNIT/5 ML UDC 500000 UNIT PO ×4 (05:55→22:50)
[2023-02-13] MEDS: Levothyroxine 75 MCG Tablet PO (05:55)
[2023-02-13] MEDS: Arthritis Pain Compound 60 CLICK TUBE TOPICAL ×2 (05:56→22:50)
[2023-02-13] MEDS: Cholecalciferol (VIT D3) 25 MCG TABLET (1,000 UNITS) 50 MCG PO (08:08)
[2023-02-13] MEDS: APIXABAN 5 MG TABLET PO ×2 (08:08→22:50)
[2023-02-13] MEDS: Juven (unflavored) Packet 1 PACKET PO ×2 (08:09→17:11)
[2023-02-13] MEDS: Sertraline 50 MG Tablet 75 MG PO (08:09)
[2023-02-13] MEDS: Miconazole Nitrate 43 GM Bottle 1 APPLIC TOPICAL ×2 (11:43→19:44)
[2023-02-13 15:02] VITALS: BP 137/47; PULSE 76; RESP 18; TEMP 36.7; O2SAT 95
[2023-02-13] MEDS: Mirtazapine 15 MG Tablet 7.5 MG PO (22:50)
[2023-02-13] MEDS: Atorvastatin Calcium 20 MG Tablet PO (22:50)
[2023-02-14] MEDS: Menthol/Lanolin/Calamine/Znox 113 GM Tube 1 APPLIC TOPICAL ×3 (06:34→22:14)
[2023-02-14] MEDS: NYSTATIN 500,000 UNIT/5 ML UDC 500000 UNIT PO ×4 (06:36→22:18)
[2023-02-14] MEDS: Levothyroxine 75 MCG Tablet PO (06:36)
[2023-02-14] MEDS: 0.9 % NaCl (Sterile) Posiflush 10 mL IV ×2 (06:39→13:50)
[2023-02-14] MEDS: Acetaminophen 500 MG Tablet 1000 MG PO (06:39)
[2023-02-14] MEDS: Ampicillin/Sulbactam 3 GM in 0.9% Normal Saline (100mL MB+) 100 ML IV ×3 (06:42→18:25)
[2023-02-14] MEDS: 0.9% Normal Saline (250mL Bag) 250 ML 150 ML IV (06:47)
[2023-02-14] MEDS: Juven (unflavored) Packet 1 PACKET PO ×2 (08:23→18:24)
[2023-02-14] MEDS: Glycerin/Hypromellose/PEG400 15 ml Bottle 2 DRP EACH EYE ×2 (08:23→22:17)
[2023-02-14] MEDS: Cholecalciferol (VIT D3) 25 MCG TABLET (1,000 UNITS) 50 MCG PO (08:24)
[2023-02-14] MEDS: APIXABAN 5 MG TABLET PO ×2 (08:24→22:17)
[2023-02-14] MEDS: Sertraline 50 MG Tablet 75 MG PO (08:24)
[2023-02-14] MEDS: Miconazole Nitrate 43 GM Bottle 1 APPLIC TOPICAL ×2 (08:29→22:15)
[2023-02-14] MEDS: Arthritis Pain Compound 60 CLICK TUBE TOPICAL ×2 (08:30→22:16)
--- NOTE | 2023-02-14 11:37 | MDS.RN ---
Information for the mds was obtained from review of the clinical record, interview of resident, staff, and direct observation of resident's care.
[2023-02-14 14:39] VITALS: BP 148/61; PULSE 64; RESP 16; TEMP 36.3; O2SAT 93
[2023-02-14] MEDS: Atorvastatin Calcium 20 MG Tablet PO (22:17)
[2023-02-14] MEDS: Mirtazapine 15 MG Tablet 7.5 MG PO (22:17)
[2023-02-15] MEDS: 0.9% Normal Saline (250mL Bag) 250 ML 15 ML IV (00:04)
[2023-02-15] MEDS: Ampicillin/Sulbactam 3 GM in 0.9% Normal Saline (100mL MB+) 100 ML IV ×2 (00:04→06:15)
[2023-02-15] MEDS: 0.9% Saline Lock 10 ML Syringe IV ×4 (00:04→23:15)
[2023-02-15] MEDS: Glycerin/Hypromellose/PEG400 15 ml Bottle 2 DRP EACH EYE ×2 (00:14→23:04)
[2023-02-15] MEDS: Acetaminophen 500 MG Tablet 1000 MG PO ×2 (00:20→23:15)
[2023-02-15 04:14] VITALS: RESP 16
[2023-02-15] MEDS: Menthol/Lanolin/Calamine/Znox 113 GM Tube 1 APPLIC TOPICAL ×3 (06:15→22:58)
[2023-02-15] MEDS: NYSTATIN 500,000 UNIT/5 ML UDC 500000 UNIT PO ×4 (06:20→22:57)
[2023-02-15] MEDS: Levothyroxine 75 MCG Tablet PO (06:21)
[2023-02-15] MEDS: Arthritis Pain Compound 60 CLICK TUBE TOPICAL ×2 (08:43→22:57)
[2023-02-15] MEDS: APIXABAN 5 MG TABLET PO ×2 (08:44→22:58)
[2023-02-15] MEDS: Miconazole Nitrate 43 GM Bottle 1 APPLIC TOPICAL ×2 (08:44→22:58)
[2023-02-15] MEDS: Sertraline 50 MG Tablet 75 MG PO (08:46)
[2023-02-15] MEDS: Cholecalciferol (VIT D3) 25 MCG TABLET (1,000 UNITS) 50 MCG PO (08:46)
--- NOTE | 2023-02-15 10:30 | PCM.PN.ID ---
Physical Exam Narrative feeling well, sutures removed yesterday at ortho office. No fever, some loose stool, no abd pain Const alert and no apparent distress Resp normal air movement and clear to auscultation bilaterally Cardio regular rate and regular rhythm GI soft to palpation, non-tender and non-distended Extremity General Extremity: Negative for edema Skin Skin Narrative: reviewed wound photos ID ID: Route of nutrition/ use of supplements: [] Nutritional Intake: [] IV Site: [] Hsu Catheter: [] Assessment & Plan Assessment/Plan (1) Surgical site infection: PLAN: R ankle suspected hardware infection s/p ORIF - wound cx with bacillus and enterococcus. OR 01/30/23 at [facility]. On unasyn for planned 6 week course, stop date planned for 03/13/23. Reviewed surgeon Dr. Nelson's note from yesterday. OR 01/30 for removal of hematoma with no purulence or necrosis seen, did not go down to bone or hardware. Surg cxs all with no wbc or organisms on gram stain and negative for growth on cx. Discussed with her today and her daughter yesterday. Ok to stop abx and monitor for any redness, swelling, drainage, pain, fever. covid - (+) 01/25/23 Will follow as needed, thank you (2) Rheumatoid arthritis: (3) COVID:
[2023-02-15 10:57] VITALS: BMI 29.6
--- NOTE | 2023-02-15 11:25 | NURSING ---
Called surgeon's office yesterday and left VM requesting return call with new orders or for them to be faxed. Fax number provided. Called again this AM and left VM requesting return call to receive order from appt yesterday.
[2023-02-15 13:29] VITALS: BP 127/65; PULSE 72; RESP 16; TEMP 36.8; O2SAT 93
[2023-02-15] MEDS: Juven (unflavored) Packet 1 PACKET PO ×2 (13:37→18:20)
[2023-02-15] MEDS: Mirtazapine 15 MG Tablet 7.5 MG PO (22:58)
[2023-02-15] MEDS: Atorvastatin Calcium 20 MG Tablet PO (22:59)
[2023-02-16] MEDS: NYSTATIN 500,000 UNIT/5 ML UDC 500000 UNIT PO ×4 (05:13→20:49)
[2023-02-16] MEDS: Levothyroxine 75 MCG Tablet PO (05:13)
[2023-02-16] MEDS: Menthol/Lanolin/Calamine/Znox 113 GM Tube 1 APPLIC TOPICAL ×3 (05:13→20:57)
[2023-02-16] MEDS: APIXABAN 5 MG TABLET PO ×2 (09:04→20:50)
[2023-02-16] MEDS: Cholecalciferol (VIT D3) 25 MCG TABLET (1,000 UNITS) 50 MCG PO (09:04)
[2023-02-16] MEDS: Miconazole Nitrate 43 GM Bottle 1 APPLIC TOPICAL ×2 (09:05→20:56)
[2023-02-16] MEDS: Sertraline 50 MG Tablet 75 MG PO (09:05)
[2023-02-16] MEDS: Arthritis Pain Compound 60 CLICK TUBE TOPICAL ×2 (09:05→20:49)
[2023-02-16] MEDS: Acetaminophen 500 MG Tablet 1000 MG PO ×2 (12:33→20:49)
--- NOTE | 2023-02-16 14:06 | NURSING ---
Received Fax from Dr. Nelson's office regarding weight bearing status. Pt is to remain non-weight bearing. Okay for active range of motion and wear boot when mobilizing.
[2023-02-16 14:47] VITALS: BP 123/54; PULSE 64; RESP 16; TEMP 36.8; O2SAT 94
[2023-02-16] MEDS: 0.9 % NaCl (Sterile) Posiflush 10 mL IV (18:05)
[2023-02-16 20:00] VITALS: PULSE 64; RESP 16
[2023-02-16] MEDS: Atorvastatin Calcium 20 MG Tablet PO (20:50)
[2023-02-16] MEDS: Mirtazapine 15 MG Tablet 7.5 MG PO (20:50)
[2023-02-16] MEDS: Glycerin/Hypromellose/PEG400 15 ml Bottle 2 DRP EACH EYE (20:51)
[2023-02-17] MEDS: NYSTATIN 500,000 UNIT/5 ML UDC 500000 UNIT PO ×4 (06:39→21:46)
[2023-02-17] MEDS: Menthol/Lanolin/Calamine/Znox 113 GM Tube 1 APPLIC TOPICAL ×3 (06:39→21:57)
[2023-02-17] MEDS: Levothyroxine 75 MCG Tablet PO (06:42)
[2023-02-17] MEDS: Acetaminophen 500 MG Tablet 1000 MG PO ×2 (06:42→21:45)
[2023-02-17 08:14] VITALS: BP 139/81; PULSE 65; RESP 16; TEMP 36.5; O2SAT 95
[2023-02-17] MEDS: Miconazole Nitrate 43 GM Bottle 1 APPLIC TOPICAL ×2 (08:19→21:57)
[2023-02-17] MEDS: Arthritis Pain Compound 60 CLICK TUBE TOPICAL ×2 (08:19→21:46)
[2023-02-17] MEDS: APIXABAN 5 MG TABLET PO ×2 (08:20→21:48)
[2023-02-17] MEDS: Sertraline 50 MG Tablet 75 MG PO (08:20)
[2023-02-17] MEDS: Cholecalciferol (VIT D3) 25 MCG TABLET (1,000 UNITS) 50 MCG PO (08:20)
[2023-02-17] MEDS: 0.9% Saline Lock 10 ML Syringe IV (08:26)
--- NOTE | 2023-02-17 15:39 | NURSING ---
Received call from Dr. Nelson's office regarding weight bearing status. Per Fur Dry Cleaner Hand pt can be Toe Touch Weight bearing with 30lbs of pressure. Awaiting order to be faxed before entering order.
[2023-02-17] MEDS: Glycerin/Hypromellose/PEG400 15 ml Bottle 2 DRP EACH EYE (21:46)
[2023-02-17] MEDS: Atorvastatin Calcium 20 MG Tablet PO (21:47)
[2023-02-17] MEDS: Mirtazapine 15 MG Tablet 7.5 MG PO (21:47)
[2023-02-18 05:29] LABS: Absolute Lymphocyte Count 2.18 X10^3/uL (0.83-4.51); Absolute Neutrophil Count 2.9 X10^3/uL (2.0-7.7); Basophil# 0.06 X10^3/uL; Eosinophil# 0.26 X10^3/uL; Eosinophils% 4.3 % (0-5); Hemoglobin 11.2 g/dL (12.0-15.0); Lymphocyte # 2.18 X10^3/ul (0.83-4.51); Lymphocyte % 35.9 % (19-41); Mean Corp Hgb Conc 31.1 g/dL (32-36); Mean Corpuscular Hgb 32.7 pg (27.0-32.0); Mean Corpuscular Volume 105.3 fL (81-99); Mean Platelet Vol. 9.9 fl (6.2-12.0); Monocyte# 0.69 X10^3/uL; Monocyte% 11.3 % (0-10); NRBC Flagged by Analyzer 0 % (0-5); Neutrophil # 2.85 X10^3/uL (2.7-7.7); Neutrophil % 46.8 % (47-70); Platelet Count 225 K/mm3 (150-450); RBC Distribution Width CV 14.2 % (11.6-14.6); RBC Distribution Width SD 54.4 fl (35.1-43.9); Red Blood Count 3.42 M/mm3 (4.2-5.4); White Blood Count 6.1 K/mm3 (4.4-11.0)
[2023-02-18 05:49] LABS: Anion Gap 6 (5-15); BUN 19 mg/dL (7-18); BUN/Creat Ratio 19.4 RATIO (10-20); Calcium,Total 8.5 mg/dL (8.5-10.1); Chloride 112 mmol/L (98-107); Creatinine, Serum 0.98 mg/dL (0.55-1.02); EST Glomerular Filtration Rate 58 mL/min (>60); Est Glom Filt Rate - Afr Amer 70 mL/min (>60); Estimated Creatinine Clearance 38.88 ml/min; Glucose 96 mg/dL (74-106); Potassium 3.8 mmol/L (3.5-5.1); Sodium Level 142 mmol/L (136-145)
[2023-02-18] MEDS: NYSTATIN 500,000 UNIT/5 ML UDC 500000 UNIT PO ×2 (06:25→12:11)
[2023-02-18] MEDS: Levothyroxine 75 MCG Tablet PO (06:25)
[2023-02-18] MEDS: Menthol/Lanolin/Calamine/Znox 113 GM Tube 1 APPLIC TOPICAL ×3 (06:26→22:06)
[2023-02-18] MEDS: APIXABAN 5 MG TABLET PO ×2 (10:04→22:08)
[2023-02-18] MEDS: Arthritis Pain Compound 60 CLICK TUBE TOPICAL ×2 (10:04→22:07)
[2023-02-18] MEDS: Cholecalciferol (VIT D3) 25 MCG TABLET (1,000 UNITS) 50 MCG PO (10:05)
[2023-02-18] MEDS: Sertraline 50 MG Tablet 75 MG PO (10:05)
[2023-02-18] MEDS: Miconazole Nitrate 43 GM Bottle 1 APPLIC TOPICAL ×2 (10:08→22:06)
[2023-02-18 15:07] VITALS: BP 123/67; PULSE 65; RESP 16; TEMP 36.2; O2SAT 97
[2023-02-18 22:00] VITALS: PULSE 68; RESP 18
[2023-02-18] MEDS: Acetaminophen 500 MG Tablet 1000 MG PO (22:04)
[2023-02-18] MEDS: 0.9 % NaCl (Sterile) Posiflush 10 mL IV (22:05)
[2023-02-18] MEDS: Mirtazapine 15 MG Tablet 7.5 MG PO (22:07)
[2023-02-18] MEDS: Senna/Docusate Sodium 1 Tablet 2 TABLET PO (22:08)
[2023-02-18] MEDS: Atorvastatin Calcium 20 MG Tablet PO (22:08)
[2023-02-18] MEDS: Glycerin/Hypromellose/PEG400 15 ml Bottle 2 DRP EACH EYE (22:09)
[2023-02-18] MEDS: 0.9% Saline Lock 10 ML Syringe IV (22:13)
[2023-02-19] MEDS: Levothyroxine 75 MCG Tablet PO (05:02)
[2023-02-19] MEDS: Menthol/Lanolin/Calamine/Znox 113 GM Tube 1 APPLIC TOPICAL ×3 (05:02→23:11)
[2023-02-19] MEDS: APIXABAN 5 MG TABLET PO ×2 (08:38→23:07)
[2023-02-19] MEDS: Miconazole Nitrate 43 GM Bottle 1 APPLIC TOPICAL ×2 (08:38→23:11)
[2023-02-19] MEDS: Arthritis Pain Compound 60 CLICK TUBE TOPICAL ×2 (08:38→23:10)
[2023-02-19] MEDS: Cholecalciferol (VIT D3) 25 MCG TABLET (1,000 UNITS) 50 MCG PO (08:39)
[2023-02-19] MEDS: Sertraline 50 MG Tablet 75 MG PO (08:39)
[2023-02-19] MEDS: 0.9 % NaCl (Sterile) Posiflush 10 mL IV (13:36)
[2023-02-19] MEDS: Acetaminophen 500 MG Tablet 1000 MG PO ×2 (13:37→23:12)
[2023-02-19 14:31] VITALS: BP 110/57; PULSE 68; RESP 16; TEMP 36.5; O2SAT 96
[2023-02-19] MEDS: Atorvastatin Calcium 20 MG Tablet PO (23:08)
[2023-02-19] MEDS: Mirtazapine 15 MG Tablet 7.5 MG PO (23:09)
[2023-02-20] MEDS: Levothyroxine 75 MCG Tablet PO (05:55)
[2023-02-20] MEDS: 0.9 % NaCl (Sterile) Posiflush 10 mL IV ×2 (05:55→09:23)
[2023-02-20] MEDS: Menthol/Lanolin/Calamine/Znox 113 GM Tube 1 APPLIC TOPICAL (05:55)
[2023-02-20] MEDS: APIXABAN 5 MG TABLET PO ×2 (09:20→22:44)
[2023-02-20] MEDS: Cholecalciferol (VIT D3) 25 MCG TABLET (1,000 UNITS) 50 MCG PO (09:20)
[2023-02-20] MEDS: Sertraline 50 MG Tablet 75 MG PO (09:20)
[2023-02-20] MEDS: Miconazole Nitrate 43 GM Bottle 1 APPLIC TOPICAL (09:20)
[2023-02-20] MEDS: Arthritis Pain Compound 60 CLICK TUBE TOPICAL ×2 (09:21→22:44)
[2023-02-20] MEDS: Acetaminophen 500 MG Tablet 1000 MG PO (09:23)
[2023-02-20 12:05] VITALS: BP 129/63; PULSE 63; RESP 18; TEMP 36.6; O2SAT 97
--- NOTE | 2023-02-20 21:31 | NURSING ---
Spoke w/ Dr. Jaimes via phone requesting Senna-S and Miralax be changed to PRN per pt request. Also questioned if PICC line can be dc'ed d/t IV Unasyn being completed and blood work has been stable. New orders received and read back to DC PICC line and Miralax and Senna-S changed to PRN- refer to JUN.
[2023-02-20] MEDS: Atorvastatin Calcium 20 MG Tablet PO (22:44)
[2023-02-20] MEDS: Mirtazapine 15 MG Tablet 7.5 MG PO (22:44)
[2023-02-21] MEDS: Menthol/Lanolin/Calamine/Znox 113 GM Tube 1 APPLIC TOPICAL ×2 (06:33→21:22)
[2023-02-21] MEDS: Levothyroxine 75 MCG Tablet PO (06:33)
--- NOTE | 2023-02-21 06:42 | NURSING ---
SCOOTER single lumen PICC line dc'ed. Length 43 cm. Tip intact. Pt tolerated well. Small amount of dried blood noted at insertion site. No active bleeding noted. Firm pressure applied for approximately 30 seconds. One sterile 4x4 folded twice applied to insertion site and secured w/ opsite.
[2023-02-21] MEDS: Arthritis Pain Compound 60 CLICK TUBE TOPICAL ×2 (08:26→21:20)
[2023-02-21] MEDS: Cholecalciferol (VIT D3) 25 MCG TABLET (1,000 UNITS) 50 MCG PO (08:26)
[2023-02-21] MEDS: APIXABAN 5 MG TABLET PO ×2 (08:26→21:21)
[2023-02-21] MEDS: Sertraline 50 MG Tablet 75 MG PO (08:26)
[2023-02-21] MEDS: Miconazole Nitrate 43 GM Bottle 1 APPLIC TOPICAL ×2 (08:27→21:22)
--- NOTE | 2023-02-21 11:48 | CASEMGMT ---
Social Work Insurance issued LCD 02/24, DC 02/25. Pt and dtr in room and SW provided update. Both are agreeable. Dtr requesting [facility], as that is whom pt's is using currently. Denied DME needs. Dtr to transport in the evening. SW referred to [facility] PT/OT/SN via [facility]. Plan: DC home with and dtr 02/25, [facility] PT/OT/SN OLAMIDE WhitakerW
[2023-02-21 13:55] VITALS: BP 132/65; PULSE 65; RESP 18; TEMP 36.2; O2SAT 99
--- NOTE | 2023-02-21 14:06 | WOUNDNOTE ---
wound photo: right medial ankle
--- NOTE | 2023-02-21 14:06 | WOUNDNOTE ---
wound photo: right lateral ankle
[2023-02-21] MEDS: Acetaminophen 500 MG Tablet 1000 MG PO (17:06)
--- NOTE | 2023-02-21 19:18 | DS.PCM_ITS ---
Providers Date of Admission: 02/03/23 Primary Care Physician: Dr. Mauricio Barney MD Consultations 02/03/23 22:48 Consult: Infectious Disease Routine Consulting Provider: Pato Echevarria Reason for Consult: Right ankle infection (ORIF open right ankle fracture) EMERGENT Consult: No MD Notified: Yes Date Notified: 02/03/23 Time Notified: 22:48 Method of Notification: Text 02/19/23 07:06 Consult: Onc/Wound/extraction machine operator Routine Comment: Reason for Consult:: right ankle sx sites Reason For Visit: INFECTION R ANKLE Diagnosis Discharge Diagnosis (1) Surgical site infection: Status: Acute Code(s): T81.49XA - Infection following a procedure, other surgical site, initial encounter (2) Rheumatoid arthritis: Status: Acute Code(s): M06.9 - Rheumatoid arthritis, unspecified (3) COVID: Status: Acute Code(s): U07.1 - COVID-19 Plan 82 year old female with below past medical history hospitalized for right ankle surgical site infection of ORIF right bimalleolar ankle fracture, underwent irrigation debridement with implant antibiotic beads 01/30/[address] Nelson, admitted to TCU with debility, here for rehabilitation, strengthening, intravenous antibiotics, prior to discharge home with . * Debility - PT/OT. * Pain - Tylenol 1000mg q6 prn pain (1-5), Oxycodone 5mg q4 prn pain (6-10). * Bowel - Miralax 17gm daily, senna/colace 2 tablets bid. * Adult immunization - Administer pneumonia vaccine, covid19 vaccine, flu vaccine as appropriate. * DVT prophylaxis - on Eliquis. * Right ankle infection - Unasyn 3gm iv q6 thru 03/14/2023, consult Dr. Echevarria for expert care. * Atrial Fibrillation - Eliquis 5mg bid. * Hyperlipidemia - Atorvastatin 20mg qhs. * Vitamin D deficiency - D3 50mcg daily. * GI prophylaxis - Lactobacillus 1 tablet twice daily * Hypothyroidism - Levothyroxine 75mcg daily. * Depression - Sertraline 75mg daily, stable chronic chcf use, GDR not recommended. * Appetite loss - Mirtazapine 7.5mg qhs, stable chronic terminal makeup operator use, GDR not recommended. * Nausea - Compazine 5mg iv q4h prn nausea/vomiting. Medications at Discharge Home Medications sertraline 100 mg tablet 75 mg PO DAILY mood/depression 10/17/14 handicap placcard #1 ea 05/07/20 levothyroxine 75 mcg tablet 75 mcg PO DAILY thyroid 02/05/21 atorvastatin 20 mg tablet 20 mg PO QHS cholesterol #90 tabs 09/25/21 apixaban 5 mg tablet (Eliquis) 5 mg PO BID blood thinner 04/27/22 acetaminophen 500 mg tablet 1,000 mg (2 x 500 mg) PO Q6H PRN PRN Pain Score 1-5 #0 tabs 02/21/23 cholecalciferol (vitamin D3) 25 mcg (1,000 unit) tablet 50 mcg (2 x 25 mcg (1,000 unit)) PO DAILY #0 tabs 02/21/23 mirtazapine 15 mg tablet 7.5 mg (1/2 x 15 mg) PO QHS 30 days #15 tabs 02/21/23 Hospital Course Operations - (See below.) Procedures None Summary of Care Provided Minutes Spent on Discharge: 35 Hospital Course: 82 year old female with below past medical history hospitalized for right ankle surgical site infection of ORIF right bimalleolar ankle fracture, underwent irrigation debridement with implant antibiotic beads 01/30/[address] Nelson, admitted to TCU with debility, here for rehabilitation, strengthening, intravenous antibiotics, prior to discharge home with . Discharge home with , daughter 02/25/2023, [facility] PT/OT/SN. Physical Exam Const alert General Appearance: cooperative HEENT normocephalic Eyes PERRL and EOMs intact bilaterally Neck supple, no JVD and no carotid bruits Resp normal respiratory effort, normal air movement and clear to auscultation bilaterally Cardio regular rate and regular rhythm GI normal to inspection, nondistended, normoactive bowel sounds, non-tender and non-distended Extremity normal capillary refill General Extremity: Negative for edema Skin no rashes or lesions noted General Skin Exam: no breakdown Psych affect normal Appearance: appropriate Weight / BMI Weight Weight: 78.29 kg Body Mass Index (BMI) 29.6 ABG / Lab / Microbiology Data 02/18/23 05:11 02/18/23 05:11 Microbiology: Microbiology 02/05/23 01:04 Nasal Secretion SARS-CoV-2 Antigen (Rapid) - Final D/C Instructions Discharge Diet: No restrictions Discharge Activity: Return to Normal Activity, May Shower and Use Walker Weight Bearing Status: No weight bearing (Right lower extremity.) Call your doctor if you observe: Fever of 101 or Higher, Inability to urinate, Inability to have a bowel movement, Shortness of breath, Dizziness, Fainting spells, Swelling in the ankles, Chest pain and Uncontrolled pain Additional Instructions: Discharge home with , daughter 02/25/2023, [facility] PT/OT/SN. Please Follow Up With: Dr. Dennis Nelson When: As scheduled. Meaningful Use Info Meaningful Use Diagnoses (Choose all that apply): None applicable Discharge Plan Admission Admit Date/Time: 02/03/23 20:55 Primary Reason for Your Visit: Debility. Attending Provider: Mac Jaimes Chi Primary Care Provider: Mauricio Barney Consulting Providers: Pato Echevarria Instructions Additional Instructions / Restrictions: Discharge home with , daughter 02/25/2023, [facility] PT/OT/SN. Discharge Orders/Prescriptions Prescriptions: New acetaminophen 500 mg Tablet 1,000 mg PO Q6H PRN PRN (Reason: Pain Score 1-5) Qty: 0 0RF cholecalciferol (vitamin D3) 25 mcg (1,000 unit) Tablet 50 mcg PO DAILY Qty: 0 0RF mirtazapine 15 mg Tablet 7.5 mg PO QHS 30 Days Qty: 15 0RF Continued levothyroxine 75 mcg tablet 75 mcg PO DAILY sertraline 100 MG tablet 75 mg PO DAILY Patient Comments: MOOD/DEPRESSION Eliquis 5 mg Tablet 5 mg PO BID atorvastatin 20 mg tablet 20 mg PO QHS Qty: 90 3RF Discontinued ergocalciferol (vitamin D2) 50 mcg (2,000 unit) capsule 50 mcg PO DAILY amiodarone 200 mg tablet 100 mg PO DAILY Lactobacillus rhamnosus GG 10 billion cell capsule 1 cap PO DAILY oxycodone 5 mg tablet 5 mg PO Q6H PRN (Reason: pain) Rx Instructions: Take 0.5-1 tablet by mouth every 6 hours for pain prochlorperazine edisylate 5 mg/mL solution 5 mg IV Q6H PRN (Reason: nausea and vomiting) cranberry extract 200 mg capsule 400 mg PO DAILY Rx Instructions: administer with a meal acetaminophen [Acetaminophen Extra Strength] 500 mg tablet 500 mg PO Q8H PRN PRN (Reason: pain) ampicillin-sulbactam 3 gram recon soln 3 g IV Q6H No Action (DME) handicap placcard See Rx Instructions .Route .MEDSUPPLY Qty: 1 0RF Rx Instructions: dx: severe OA expires: 5 years Referrals / Follow Up: Mauricio Barney MD [Primary Care Provider] - 03/08/23 1:00 pm (will call if they have an earlier appointment ) Disposition Disposition (needs filled in before D/C Order can be placed): Home Health Service
[2023-02-21] MEDS: Atorvastatin Calcium 20 MG Tablet PO (21:20)
[2023-02-21] MEDS: Mirtazapine 15 MG Tablet 7.5 MG PO (21:21)
[2023-02-22] MEDS: Levothyroxine 75 MCG Tablet PO (05:46)
[2023-02-22] MEDS: Miconazole Nitrate 43 GM Bottle 1 APPLIC TOPICAL ×2 (09:59→20:49)
[2023-02-22] MEDS: Cholecalciferol (VIT D3) 25 MCG TABLET (1,000 UNITS) 50 MCG PO (09:59)
[2023-02-22] MEDS: Sertraline 50 MG Tablet 75 MG PO (09:59)
[2023-02-22] MEDS: Arthritis Pain Compound 60 CLICK TUBE TOPICAL ×2 (09:59→20:39)
[2023-02-22] MEDS: APIXABAN 5 MG TABLET PO ×2 (09:59→20:40)
[2023-02-22] MEDS: Menthol/Lanolin/Calamine/Znox 113 GM Tube 1 APPLIC TOPICAL ×2 (10:00→20:49)
[2023-02-22 12:00] VITALS: BMI 29.0
[2023-02-22 16:00] VITALS: BP 139/66; PULSE 79; RESP 16; TEMP 36.7; O2SAT 96
[2023-02-22] MEDS: Acetaminophen 500 MG Tablet 1000 MG PO (20:39)
[2023-02-22] MEDS: Atorvastatin Calcium 20 MG Tablet PO (20:41)
[2023-02-22] MEDS: Mirtazapine 15 MG Tablet 7.5 MG PO (20:41)
[2023-02-22] MEDS: Glycerin/Hypromellose/PEG400 15 ml Bottle 2 DRP EACH EYE (20:42)
[2023-02-22 22:00] VITALS: PULSE 77; RESP 16; O2SAT 92
[2023-02-23] MEDS: Levothyroxine 75 MCG Tablet PO (05:07)
[2023-02-23 08:14] VITALS: BP 143/65; PULSE 68; RESP 16; TEMP 36.6; O2SAT 97
[2023-02-23] MEDS: Cholecalciferol (VIT D3) 25 MCG TABLET (1,000 UNITS) 50 MCG PO (08:17)
[2023-02-23] MEDS: Arthritis Pain Compound 60 CLICK TUBE TOPICAL ×2 (08:17→20:45)
[2023-02-23] MEDS: Menthol/Lanolin/Calamine/Znox 113 GM Tube 1 APPLIC TOPICAL ×2 (08:17→22:47)
[2023-02-23] MEDS: APIXABAN 5 MG TABLET PO ×2 (08:17→20:46)
[2023-02-23] MEDS: Miconazole Nitrate 43 GM Bottle 1 APPLIC TOPICAL ×2 (08:17→22:47)
[2023-02-23] MEDS: Sertraline 50 MG Tablet 75 MG PO (08:18)
[2023-02-23 10:00] VITALS: RESP 16
[2023-02-23] MEDS: Acetaminophen 500 MG Tablet 1000 MG PO ×2 (10:36→20:50)
[2023-02-23] MEDS: Glycerin/Hypromellose/PEG400 15 ml Bottle 2 DRP EACH EYE (20:45)
[2023-02-23] MEDS: Mirtazapine 15 MG Tablet 7.5 MG PO (20:46)
[2023-02-23] MEDS: Atorvastatin Calcium 20 MG Tablet PO (20:46)
[2023-02-24] MEDS: Levothyroxine 75 MCG Tablet PO (06:20)
[2023-02-24] MEDS: Sertraline 50 MG Tablet 75 MG PO (08:46)
[2023-02-24] MEDS: APIXABAN 5 MG TABLET PO ×2 (08:46→22:04)
[2023-02-24] MEDS: Cholecalciferol (VIT D3) 25 MCG TABLET (1,000 UNITS) 50 MCG PO (08:47)
[2023-02-24] MEDS: Miconazole Nitrate 43 GM Bottle 1 APPLIC TOPICAL ×2 (08:47→22:04)
[2023-02-24] MEDS: Menthol/Lanolin/Calamine/Znox 113 GM Tube 1 APPLIC TOPICAL ×2 (08:48→22:03)
[2023-02-24] MEDS: Arthritis Pain Compound 60 CLICK TUBE TOPICAL ×2 (10:27→22:03)
[2023-02-24 10:49] VITALS: BP 144/77; PULSE 69; RESP 18; TEMP 36.6; O2SAT 96
--- NOTE | 2023-02-24 11:23 | MDS.RN ---
MDS pain interview completed.
[2023-02-24 19:23] VITALS: BP 124/58; PULSE 62; PULSE 64; RESP 16; TEMP 36.5; O2SAT 96
[2023-02-24] MEDS: Acetaminophen 500 MG Tablet 1000 MG PO (22:02)
[2023-02-24] MEDS: Atorvastatin Calcium 20 MG Tablet PO (22:04)
[2023-02-24] MEDS: Mirtazapine 15 MG Tablet 7.5 MG PO (22:04)
[2023-02-25 05:33] LABS: Absolute Lymphocyte Count 2.06 X10^3/uL (0.83-4.51); Absolute Neutrophil Count 3.3 X10^3/uL (2.0-7.7); Basophil# 0.05 X10^3/uL; Basophil% 0.8 % (0-1); Eosinophil# 0.24 X10^3/uL; Eosinophils% 3.7 % (0-5); Hematocrit 37.6 % (37-47); Hemoglobin 11.6 g/dL (12.0-15.0); Lymphocyte # 2.06 X10^3/ul (0.83-4.51); Mean Corp Hgb Conc 30.9 g/dL (32-36); Mean Corpuscular Hgb 32.2 pg (27.0-32.0); Mean Corpuscular Volume 104.4 fL (81-99); Mean Platelet Vol. 9.8 fl (6.2-12.0); Monocyte# 0.75 X10^3/uL; Monocyte% 11.7 % (0-10); NRBC Flagged by Analyzer 0 % (0-5); Neutrophil # 3.29 X10^3/uL (2.7-7.7); Neutrophil % 51.2 % (47-70); Platelet Count 249 K/mm3 (150-450); RBC Distribution Width CV 13.4 % (11.6-14.6); RBC Distribution Width SD 51.8 fl (35.1-43.9); White Blood Count 6.4 K/mm3 (4.4-11.0)
[2023-02-25 05:50] LABS: Anion Gap 5 (5-15); BUN 18 mg/dL (7-18); BUN/Creat Ratio 17.6 RATIO (10-20); Calcium,Total 8.5 mg/dL (8.5-10.1); Chloride 110 mmol/L (98-107); Creatinine, Serum 1.02 mg/dL (0.55-1.02); EST Glomerular Filtration Rate 55 mL/min (>60); Est Glom Filt Rate - Afr Amer 67 mL/min (>60); Estimated Creatinine Clearance 37.35 ml/min; Glucose 91 mg/dL (74-106); Potassium 4.2 mmol/L (3.5-5.1); Sodium Level 142 mmol/L (136-145)
[2023-02-25] MEDS: Levothyroxine 75 MCG Tablet PO (06:41)
[2023-02-25 06:55] VITALS: PULSE 61; RESP 18; O2SAT 98
[2023-02-25] MEDS: APIXABAN 5 MG TABLET PO (09:41)
[2023-02-25] MEDS: Arthritis Pain Compound 60 CLICK TUBE TOPICAL (09:41)
[2023-02-25] MEDS: Menthol/Lanolin/Calamine/Znox 113 GM Tube 1 APPLIC TOPICAL (09:41)
[2023-02-25] MEDS: Cholecalciferol (VIT D3) 25 MCG TABLET (1,000 UNITS) 50 MCG PO (09:42)
[2023-02-25] MEDS: Miconazole Nitrate 43 GM Bottle 1 APPLIC TOPICAL (09:42)
[2023-02-25] MEDS: Acetaminophen 500 MG Tablet 1000 MG PO (09:51)
[2023-02-25] MEDS: Sertraline 50 MG Tablet 75 MG PO (12:17)
--- NOTE | 2023-02-25 12:54 | CASEMGMT ---
Social Work BIMS () and PHQ-2 () completed for MDS assessment. Taylor Ramon MSW BUILDING CODE ADMINISTRATOR
[2023-02-25 14:45] VITALS: BP 124/58; PULSE 64; RESP 16; TEMP 36.5; O2SAT 96
== END 2023-02-25 15:20 | disposition home health service (06) | DRG 950 ==
PROVIDERS: Admitting Provider Family Medicine Geriatric Medicine; PCP Family Medicine; Visit Provider Family Medicine Geriatric Medicine
DX: T81.40XD Infection following a procedure, unspecified, subsequent encounter (principal); B95.2 Enterococcus as the cause of diseases classified elsewhere; I48.0 Paroxysmal atrial fibrillation; M06.9 Rheumatoid arthritis, unspecified; E03.9 Hypothyroidism, unspecified; F32.A Depression, unspecified; E78.00 Pure hypercholesterolemia, unspecified; E55.9 Vitamin D deficiency, unspecified; W19.XXXD Unspecified fall, subsequent encounter; S82.841D Displaced bimalleolar fracture of right lower leg, subsequent encounter for closed fracture with routine healing; Z86.16 Personal history of COVID-19; Z79.899 Other long term (current) drug therapy; Z79.890 Hormone replacement therapy; Z79.01 Long term (current) use of anticoagulants
CPT/HCPCS: 36415; 80048; 85014; 85018; 85025; 87811; 97110; 97112; 97116; 97162; 97166; 97530; 97535; 97542; 97802; J7050; A4216; J0295

== ENCOUNTER 2024-01-29 20:14 | Inpatient (IN) | payer MEDICARE, SELFPAY ==
[2024-01-29 20:15] VITALS: BP 165/89; PULSE 70; RESP 20; TEMP 36.6; O2SAT 96
[2024-01-29 21:20] VITALS: BP 141/66; PULSE 75; RESP 18; TEMP 36.7; O2SAT 98
--- NOTE | 2024-01-29 22:18 | RAD_ITS ---
INDICATION: wound EXAMINATION/TECHNIQUE: X-RAY - LEFT XR Tibia/Fibula 2 Views 2 VIEWS COMPARISON: Prior study dated: 10/18/2014 FINDINGS: SOFT TISSUES: Mild soft tissue swelling distally. No soft tissue gas. No radiopaque foreign body. BONES/JOINTS: No acute fracture or subluxation.. Total left knee arthroplasty noted without evidence of failure. Appropriate alignment at the ankle. No osseous erosion. RAD/Tibia & Fibula 2 Views IMPRESSION: No fracture or malalignment. Soft tissue swelling with no osseous erosion. Electronically Signed: Juan Luis Queen MD at 23:00 EDT ,
[2024-01-29 22:20] VITALS: BP 143/65; PULSE 72; RESP 18; TEMP 36.7; O2SAT 98
--- NOTE | 2024-01-29 22:21 | EDS_ITS ---
HPI History of Present Illness Chief Complaint: Wound Detail of Chief Complaint: Wound to the left leg Informant: patient Narrative Narrative: Patient presents with a wound to the left leg that she sustained from a dog scratch 4 days ago. Patient was seen at [place] emergency department where she had sutures and she was started on doxycycline. Today they noticed increased redness and swelling and pain. Patient denies any fever although may be some chills. She has history of being immunocompromise due to history of RA. Patient states that in the same leg she has had history of MRSA causing osteomyelitis and has had wound vacs to that extremity as well as skin grafts. [facility] Medical History Acute blood loss anemia Cellulitis of left lower extremity Compression fracture of L3 vertebra Depression DVT (deep venous thrombosis) Gastrointestinal bleed GI bleed Hematoma of right lower extremity History of Clostridium difficile Hyperlipidemia Hypothyroidism Immunosuppressed status intermediate current use of anticoagulant Open wound of right buttock with complication 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 Paroxysmal atrial fibrillation Peptic ulcer disease Rheumatoid arthritis Traumatic hematoma of buttock Vitamin D deficiency Home Medications ?Medication ?Instructions ?Recorded ?Last Taken ?Type handicap placcard #1 ea 05/07/20 Unknown Rx levothyroxine 75 mcg tablet 75 mcg PO DAILY thyroid 02/05/21 Unknown History atorvastatin 20 mg tablet 20 mg PO QHS cholesterol #90 tabs 09/25/21 Unknown Rx apixaban 5 mg tablet (Eliquis) 5 mg PO BID blood thinner 04/27/22 Unknown History acetaminophen 500 mg tablet 1,000 mg (2 x 500 mg) PO Q6H PRN 02/21/23 Unknown Rx PRN Pain Score 1-5 #0 tabs cholecalciferol (vitamin D3) 25 50 mcg (2 x 25 mcg (1,000 unit)) 02/21/23 Unknown Rx mcg (1,000 unit) tablet PO DAILY #0 tabs L.acidophil,salivari-Bifido 1 cap PO DAILY 01/29/24 Unknown History bifidum-Strep thermoph 175 mg capsule (Acidophilus Probiotic Blend) amiodarone 200 mg tablet 200 mg PO DAILY 01/29/24 Unknown History d-mannose 500 mg capsule (AZO 1,000 mg PO BID 01/29/24 Unknown History D-Mannose) docusate sodium 100 mg capsule 100 mg PO QHS 01/29/24 Unknown History (Colace) duloxetine 60 mg capsule,delayed 60 mg PO DAILY 01/29/24 Unknown History release mirtazapine 15 mg tablet 30 mg PO QHS 01/29/24 Unknown History Allergy/AdvReac Type Severity Reaction Status Date / Time cephalexin monohydrate (From Allergy Hives Verified 01/29/24 20:15 Keflex) ethchlorvynol (From Placidyl) Allergy Unknown Verified 01/29/24 20:15 Penicillins (PCN) Allergy Unknown Verified 01/29/24 20:15 Sulfa (Sulfonamide Allergy Rash Verified 01/29/24 20:15 Antibiotics) sulfamethoxazole (From Allergy Unknown Verified 01/29/24 20:15 Septra) trimethoprim (From Septra) Allergy Unknown Verified 01/29/24 20:15 Family History Father CAD (coronary artery disease) Mother Breast cancer breast Surgical History H/O colectomy H/O shoulder surgery H/O total hysterectomy History of arthroplasty of left knee History of bunionectomy of both great toes History of evacuation of hematoma (03/20/18) History of left heart catheterization (1999) History of right knee joint replacement History of tonsillectomy and adenoidectomy Hx of cholecystectomy surgical debridement left lower extremity (10/2014) Social History household members: spouse Smoking Status: Never smoker alcohol intake: current alcohol intake frequency: holidays/special occasions only Alcohol type: wine substance use type: does not use caffeine: Yes Type: coffee Number of servings: 2 ROS ROS ED Review of Systems ROS Unobtainable: other Constitutional Constitutional ED: Reports lethargy; Denies chills, fever(s), sweats or weight loss Eyes Eyes: Denies blurry vision, change in vision or diplopia ENT ENT ED: Denies rhinorrhea or sore throat Cardiovascular Cardiovascular: Denies chest pain, orthopnea or racing heartbeat Respiratory/Chest Respiratory/Chest: Denies cough, dyspnea, dyspnea on exertion, orthopnea or sputum Gastrointestinal Gastrointestinal: Denies abdominal pain, diarrhea, nausea or vomiting Genitourinary Genitourinary ED: Denies dysuria, hematuria or urinary frequency Musculoskeletal Musculoskeletal: Denies arthralgias, back pain, myalgias or neck pain Integumentary Reports other Details: Wound left lower extremity ; Denies abscess, Abrasions or rash Neurologic Neurologic: Denies headache(s) or weakness Psychiatric Psychiatric: Denies anxiety, depression or suicidal thoughts Endocrine Endocrinology: Denies polydipsia, polyphagia or polyuria Hematologic/Lymphatic Hematologic/Lymphatic: Denies easy bleeding, easy bruising or lymphadenopathy Allergic/Immunologic Allergic/Immunologic ED: Denies mouth swelling, tongue swelling or urticaria EXAM Physical Exam Const Vital Signs: 01/29/24 20:15 01/29/24 21:20 01/29/24 22:20 Temperature 98 F 98.0 F 98.1 F Temperature Source Temporal Oral Oral Pulse Rate 70 75 72 Respiratory Rate 20 H 18 18 Blood Pressure 165/89 H 141/66 H 143/65 H Blood Pressure Mean 114 91 91 Pulse Ox 96 98 98 Oxygen Delivery Method Room Air Room Air Room Air 01/29/24 23:00 Temperature 98.7 F Temperature Source Oral Pulse Rate 66 Respiratory Rate 16 Blood Pressure 132/59 H Blood Pressure Mean 83 Pulse Ox 93 Oxygen Delivery Method Room Air Positive well nourished and well developed General Appearance ED: well developed and NAD HEENT Reports TM's clear and moist mucous membranes normocephalic and atraumatic; Negative for trauma or tenderness Tympanic Membrane ED: Yes TM's clear Eyes PERRL and EOMs intact bilaterally General Eye ED: Negative for pale conjunctiva or scleral icterus Neck no lymphadenopathy, supple and no JVD General: Negative for tenderness Chest Wall inspection of chest normal and palpation of chest normal Chest: Negative for tenderness Resp normal respiratory effort and clear to auscultation bilaterally Effort and Inspection: Negative for respiratory distress or pain with movement Auscultation: Negative for rhonchi, wheezes or diminished lung sounds Cardio regular rate, regular rhythm, S1 normal heart sound, S2 normal heart sound and no murmurs Peripheral Pulses: pulses 2+ throughout GI normal to inspection, nondistended, normoactive bowel sounds, soft to palpation, non-tender, non-distended and no masses Back/Spine no CVA tenderness and no thoracic nor lumbar tenderness Extremity Extremity Narrative: Left lower extremity-patient has a V-shaped laceration measuring approximately 10 cm in total length. Central portion does have some serous fluid underneath the flap. She has some surrounding erythema and mild soft tissue swelling. There is no purulent drainage noted from the suture sites. She does have tenderness to palpation of the area. General Extremety ED: Negative for edema General Extremity: Negative for edema Neuro oriented x3, CN's II-XII intact bilaterally, no sensory deficits noted and gait normal Sensorium / Orientation: awake, alert, oriented to person, oriented to place and oriented to time Motor Exam: strength 5/5 throughout and strength abnormal Psych mental status grossly normal Skin no rashes or lesions noted and no wounds MDM MDM MDM Narrative Medical decision making narrative: Patient presents with a wound to the left lower extremity. Basic labs and blood cultures will be obtained. Patient with history of being immunocompromised and currently on antibiotics. Worsening symptoms. Will obtain an x-ray. Will start on Levaquin and vancomycin IV. CBC with differential count 7.7 with hemoglobin 14 and platelet count 285. Chemistries unremarkable. BUN 23 creatinine 0.23. Lactate normal 1.2. 2 view x-rays of the left tib-fib obtained showed no evidence of gas in the tissues or evidence of osteomyelitis. Case will be discussed with hospitalist to evaluate patient for admission for infected dog bite with failed outpatient therapy. Lab Data Attestation: I reviewed the patient's lab results. Labs: Laboratory Results - last 24 hr 01/29/24 20:31 WBC 7.7 RBC 4.46 Hgb 14.0 Hct 43.6 MCV 97.8 MCH 31.4 MCHC 32.1 RDW Std Deviation 48.4 H RDW Coeff of Jessica 13.5 Plt Count 285 MPV 10.6 Immature Gran % (Auto) 0.500 Neut % (Auto) 53.6 Lymph % (Auto) 29.3 [place] % (Auto) 12.8 H Eos % (Auto) 3.0 Baso % (Auto) 0.8 Absolute Neuts (auto) 4.1 Absolute Lymphs (auto) 2.25 Nucleated RBC % 0 Sodium 142 Potassium 3.7 Chloride 109 H Carbon Dioxide 27.0 Anion Gap 7 BUN 23 H Creatinine 1.23 H Estim Creat Clear Calc 37.62 Est GFR (MDRD) Af Amer 54 L Est GFR (MDRD) Non-Af 44 L BUN/Creatinine Ratio 18.7 Glucose 105 Lactic Acid 1.2 Calcium 9.0 Radiography Diagnostic Testing: Clinical Impression(s) from Imaging Studies Tibia/Fibula X-Ray 01/29/24 22:18 IMPRESSION: No fracture or malalignment. Soft tissue swelling with no osseous erosion. Electronically Signed: Juan Luis Queen MD at 23:00 EDT , 2 view x-rays of the left tib-fib obtained interpreted by myself as no evidence of gas in the tissue or evidence of osteomyelitis. Radiology in agreement. Discharge Plan Triage Chief Complaint: Wound ED Provider: Gracy Putnam Dx/Rx/DC Orders Clinical Impression: Cellulitis of left leg, Dog bite of left lower leg Prescriptions: No Action (DME) handicap placcard See Rx Instructions .Route .MEDSUPPLY Qty: 1 0RF Rx Instructions: dx: severe OA expires: 5 years levothyroxine 75 mcg tablet 75 mcg PO DAILY Eliquis 5 mg Tablet 5 mg PO BID acetaminophen 500 mg Tablet 1,000 mg PO Q6H PRN PRN (Reason: Pain Score 1-5) Qty: 0 0RF cholecalciferol (vitamin D3) 25 mcg (1,000 unit) Tablet 50 mcg PO DAILY Qty: 0 0RF amiodarone 200 mg tablet 200 mg PO DAILY duloxetine 60 mg capsule,delayed release(DR/EC) 60 mg PO DAILY L.acidoph,saliva-B.bif-S.therm [Acidophilus Probiotic Blend] 175 mg capsule 1 cap PO DAILY docusate sodium [Colace] 100 mg capsule 100 mg PO QHS AZO D-Mannose 500 mg capsule 1,000 mg PO BID mirtazapine 15 mg Tablet 30 mg PO QHS atorvastatin 20 mg tablet 20 mg PO QHS Qty: 90 3RF Primary Care Provider: Mauricio Barney Referrals: Mauricio Barney MD [Primary Care Provider] - Print Language: French Disposition Disposition: Acute Care Hospital [facility]
[2024-01-29 22:22] VITALS: BMI 32.8
[2024-01-29 23:00] VITALS: BP 132/59; PULSE 66; RESP 16; TEMP 37.1; O2SAT 93
[2024-01-29 23:06] LABS: Absolute Lymphocyte Count 2.25 X10^3/uL (0.83-4.51); Absolute Neutrophil Count 4.1 X10^3/uL (2.0-7.7); Basophil# 0.06 X10^3/uL; Basophil% 0.8 % (0-1); Eosinophil# 0.23 X10^3/uL; Hematocrit 43.6 % (37-47); Lymphocyte # 2.25 X10^3/ul (0.83-4.51); Lymphocyte % 29.3 % (19-41); Mean Corp Hgb Conc 32.1 g/dL (32-36); Mean Corpuscular Hgb 31.4 pg (27.0-32.0); Mean Corpuscular Volume 97.8 fL (81-99); Mean Platelet Vol. 10.6 fl (6.2-12.0); Monocyte# 0.98 X10^3/uL; Monocyte% 12.8 % (0-10); NRBC Flagged by Analyzer 0 % (0-5); Neutrophil # 4.11 X10^3/uL (2.7-7.7); Neutrophil % 53.6 % (47-70); Platelet Count 285 K/mm3 (150-450); RBC Distribution Width CV 13.5 % (11.6-14.6); RBC Distribution Width SD 48.4 fl (35.1-43.9); Red Blood Count 4.46 M/mm3 (4.2-5.4); White Blood Count 7.7 K/mm3 (4.4-11.0)
[2024-01-29 23:20] LABS: Anion Gap 7 (5-15); BUN 23 mg/dL (7-18); BUN/Creat Ratio 18.7 RATIO (10-20); Chloride 109 mmol/L (98-107); Creatinine, Serum 1.23 mg/dL (0.55-1.02); EST Glomerular Filtration Rate 44 mL/min (>60); Est Glom Filt Rate - Afr Amer 54 mL/min (>60); Estimated Creatinine Clearance 37.62 ml/min; Glucose 105 mg/dL (74-106); Potassium 3.7 mmol/L (3.5-5.1); Sodium Level 142 mmol/L (136-145)
[2024-01-29 23:29] LABS: Lactic Acid 1.2 mmol/L (0.4-1.9)
[2024-01-29] MEDS: levoFLOXacin IV 750 MG/150 ML BAG 100 MG IV (23:29)
[2024-01-30] VITALS (10 sets, daily range): BP systolic 123–151; BP diastolic 55–63; PULSE 65–77; RESP 16–18; TEMP 35.9–37; O2SAT 93–97; BMI 32.1; BMI 32.5
--- NOTE | 2024-01-30 00:30 | HP.PCM.HOS_ITS ---
[facility] - General General Date of Admission: 01/30/24 Date of Service: 01/30/24 Chief Complaint: Increasing LLE Wound with Redness and Pain. HPI Narrative BRADLEY GILMORE, is a 83 F with a past medical history of essential hypertension, hyperlipidemia, hypothyroidism, obesity; with BMI of 32.9 this admission, PAF; on amiodarone and Eliquis, history of arrhythmia; s/p PPM, history of RLE DVT, 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 difficile colitis, history of colectomy, history of cholecystectomy, history of total hysterectomy, depression, osteoporosis and OA who presents to [facility] ER complaining of an increasing left lower extremity wound with redness and pain. Ms. Denson reports her symptoms began after her friend's dog scratched her Left leg 4 days ago after which she was seen at the [facility] emergency department where she had sutures placed and was started on oral doxycycline. Then on January 29, 2024 she noticed increased redness, swelling and pain from the area along with chills so she decided to come in for further evaluation and treatment after the skin flap turned black. The patient is worried she will need another skin graft and wound VAC similar to her per previous Left lower extremity infection attributed to MRSA. In the ER she was diagnosed with cellulitis of the Left lower extremity that failed outpatient treatment with oral doxycycline and she was then started on IV Levaquin and IV vancomycin (given her allergy profile) and she was then admitted to the general medical floor for ongoing care for stay that is expected to extend beyond 2 midnights. 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 DVT (deep venous thrombosis) Cellulitis of left lower extremity Hyperlipidemia Paroxysmal atrial fibrillation History of Clostridium difficile Home Medications ?Medication ?Instructions ?Recorded ?Last Taken ?Type handicap placcard #1 ea 05/07/20 Unknown Rx levothyroxine 75 mcg tablet 75 mcg PO DAILY thyroid 02/05/21 Unknown History atorvastatin 20 mg tablet 20 mg PO QHS cholesterol #90 tabs 09/25/21 Unknown Rx apixaban 5 mg tablet (Eliquis) 5 mg PO BID blood thinner 04/27/22 Unknown History acetaminophen 500 mg tablet 1,000 mg (2 x 500 mg) PO Q6H PRN 02/21/23 Unknown Rx PRN Pain Score 1-5 #0 tabs cholecalciferol (vitamin D3) 25 50 mcg (2 x 25 mcg (1,000 unit)) 02/21/23 Unknown Rx mcg (1,000 unit) tablet PO DAILY #0 tabs L.acidophil,salivari-Bifido 1 cap PO DAILY 01/29/24 Unknown History bifidum-Strep thermoph 175 mg capsule (Acidophilus Probiotic Blend) amiodarone 200 mg tablet 200 mg PO DAILY 01/29/24 Unknown History d-mannose 500 mg capsule (AZO 1,000 mg PO BID 01/29/24 Unknown History D-Mannose) docusate sodium 100 mg capsule 100 mg PO QHS 01/29/24 Unknown History (Colace) duloxetine 60 mg capsule,delayed 60 mg PO DAILY 01/29/24 Unknown History release mirtazapine 15 mg tablet 30 mg PO QHS 01/29/24 Unknown History Allergy/AdvReac Type Severity Reaction Status Date / Time cephalexin monohydrate (From Allergy Hives Verified 01/29/24 20:15 Keflex) ethchlorvynol (From Placidyl) Allergy Unknown Verified 01/29/24 20:15 Penicillins (PCN) Allergy Unknown Verified 01/29/24 20:15 Sulfa (Sulfonamide Allergy Rash Verified 01/29/24 20:15 Antibiotics) sulfamethoxazole (From Allergy Unknown Verified 01/29/24 20:15 Septra) trimethoprim (From Septra) Allergy Unknown Verified 01/29/24 20:15 Family History Father CAD (coronary artery disease) Mother Breast cancer breast Surgical History History of appendectomy History of evacuation of hematoma (03/20/18) History of right knee joint replacement History of bunionectomy of both great toes H/O shoulder surgery History of arthroplasty of left knee H/O total hysterectomy H/O colectomy Hx of cholecystectomy History of tonsillectomy and adenoidectomy History of left heart catheterization (1999) surgical debridement left lower extremity (10/2014) Social History household members: spouse Smoking Status: Never smoker alcohol intake: current alcohol intake frequency: holidays/special occasions only Alcohol type: wine substance use type: does not use caffeine: Yes Type: coffee Number of servings: 2 ROS ROS Narrative Review of systems: Constitutional: Patient admits to lethargy but denies fever or chills. Eyes: Patient denies changes in vision or discharge from eyes. ENT: Patient denies runny nose, sore throat or ear pain. Resp: Patient denies shortness of breath or cough. CV: Patient denies chest pain, heart racing or palpitations. GI: Patient denies abdominal pain, nausea, vomiting, diarrhea or constipation. : Patient denies dysuria, hematuria or urinary frequency. MSK: Patient admits to severe pain in Left lower extremity made worse with ambulation or weightbearing. Skin: Patient admits to black discoloration of skin flap with surrounding erythema and severe tenderness to palpation. Psych: Patient denies symptoms of uncontrolled depression or anxiety. Neuro: Patient denies headache, paresthesias or focal neurologic weakness. Allergy: Patient denies lip swelling, tongue swelling or urticaria. Hematology: Patient admits to easy bleeding on Eliquis. Endocrinology: Patient denies polyuria, polydipsia and polyphagia. 14 point ROS otherwise negative except for positives noted above. Vital Signs Vital Signs Vital Signs: 01/29/24 20:15 01/29/24 21:20 01/29/24 22:20 Temperature 98 F 98.0 F 98.1 F Temperature Source Temporal Oral Oral Pulse Rate 70 75 72 Respiratory Rate 20 H 18 18 Blood Pressure 165/89 H 141/66 H 143/65 H Blood Pressure Mean 114 91 91 Pulse Ox 96 98 98 Oxygen Delivery Method Room Air Room Air Room Air 01/29/24 23:00 01/30/24 00:00 01/30/24 00:20 Temperature 98.7 F 98.6 F 98.6 F Temperature Source Oral Oral Pulse Rate 66 71 71 Respiratory Rate 16 16 16 Blood Pressure 132/59 H 135/58 H 135/58 H Blood Pressure Mean 83 83 83 Pulse Ox 93 93 93 Oxygen Delivery Method Room Air Room Air Weight Weight: 191 lb 9.307 oz Body Mass Index (BMI) 32.8 Physical Exam Const alert, oriented x3, average body habitus and healthy appearing Constitutional Narrative: Mild distress noted. General Appearance: cooperative HEENT normocephalic, head/scalp atraumatic, hearing grossly normal bilaterally and moist oral mucous membranes Eyes PERRL and EOMs intact bilaterally Neck no lymphadenopathy and supple Resp normal respiratory effort, no retractions and no use of accessory muscles Cardio regular rate and regular rhythm GI normal to inspection, nondistended, normoactive bowel sounds, soft to palpation, non-tender and non-distended Extremity Extremity Narrative: Erythema and edema of left lower extremity noted with a V shaped flap over distal anterior jimenez. Neuro oriented x3, CN's II-XII intact bilaterally, moves all extremities and no focal motor deficits Sensorium / Orientation: awake, alert, oriented to person, oriented to place and oriented to time Speech: speech normal Psych affect normal Results Medical Records Data Attestation: I reviewed the patient's medical records Lab / Micro Data Attestation: I reviewed the patient's lab results. 01/29/24 20:31 01/29/24 20:31 Labs: Laboratory Results - last 24 hr 01/29/24 20:31: WBC 7.7, RBC 4.46, Hgb 14.0, Hct 43.6, MCV 97.8, MCH 31.4, MCHC 32.1, RDW Std Deviation 48.4 H, RDW Coeff of Jessica 13.5, Plt Count 285, MPV 10.6, Immature Gran % (Auto) 0.500, Neut % (Auto) 53.6, Lymph % (Auto) 29.3, [place] % (Auto) 12.8 H, Eos % (Auto) 3.0, Baso % (Auto) 0.8, Absolute Neuts (auto) 4.1, Absolute Lymphs (auto) 2.25, Nucleated RBC % 0, Sodium 142, Potassium 3.7, C hloride 109 H, Carbon Dioxide 27.0, Anion Gap 7, BUN 23 H, Creatinine 1.23 H, Estim Creat Clear Calc 37.62, Est GFR (MDRD) Af Amer 54 L, Est GFR (MDRD) Non-Af 44 L, BUN/Creatinine Ratio 18.7, Glucose 105, Lactic Acid 1.2, Calcium 9.0 Imaging Radiology Impression Tibia/Fibula X-Ray 01/29/24 22:18 IMPRESSION: No fracture or malalignment. Soft tissue swelling with no osseous erosion. Electronically Signed: Juan Luis Queen MD at 23:00 EDT Reading Location ID and State: [facility] / [place] Tel , Service support , Assessment & Plan Assessment/Plan (1) Cellulitis of left leg: (2) Dog scratch: (3) Rheumatoid arthritis: QUALIFIERS: Rheumatoid arthritis location: unspecified site R heumatoid factor presence: unspecified presence Qualified Code(s): M06.9 - Rheumatoid arthritis, unspecified (4) alf current use of anticoagulant: (5) Paroxysmal atrial fibrillation: PLAN: Plan 1. Cellulitis of the Left lower extremity that failed outpatient treatment with oral doxycycline after Dog Scratch and she was then started on IV Levaquin and IV vancomycin with listed allergies to penicillin, Keflex and Bactrim - Admit to general medical floor. Continue IV vancomycin but switch IV Levaquin to IV Azactam due to concerns regarding potential QT-prolongation with amiodarone. We will consult general surgery see this patient on rounds in the a.m. for further recommendations regarding skin flap removal and possible wound VAC with help appreciated advance. Finally, we will consult Dr. Echevarria of infectious diseases to help to manage this patient with a complicated past history of severe infection in her Left lower extremity. 2. History of Left lower extremity wound due to MRSA causing osteomyelitis and requiring Wound-VAC plus skin graft complicating #1 - Noted. 3. History of immunocompromised state due to Rheumatoid Arthritis compounding #1 & #2 - Noted. Patient currently not on any immune suppression agents. 4. Essential hypertension - Resume home regimen plus give as needed IV hydralazine for systolic blood pressure greater than 160 mmHg. 5. Hyperlipidemia - Resume statin as previous. 6. Hypothyroidism - Continue Synthroid and check TSH. 7. Obesity; with BMI of 32.9 this admission - Weight loss will be recommended. 8. PAF; on amiodarone and Eliquis - Maintain amiodarone and Eliquis as before. 9. History of RLE DVT - Noted. 10. History of Right buttock hematoma; s/p evacuation - Noted. 11. History of L3 compression fracture - Noted. 12. History of GERD; GI bleed due to PUD - Noted with no signs of recurrence at this time. 13. History of anemia - Stable with hemoglobin of 14 g/dL present on admission. 14. History of C. difficile colitis - Watch out for signs of diarrhea. We will also start patient on probiotic in an effort to prevent recurrence. 15. History of colectomy - Noted. 19. History of cholecystectomy - Noted. 20. History of total hysterectomy - Noted. 21. Depression - Continue home regimen as previous. 22. 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 - Stable. 23. OA - Give Tylenol prn. 24. DVT prophylaxis - Patient already on Eliquis for #8 which will be continued. Total time: Approximately 55 minutes. Charges/Coding Visit Charges Inpatient E&M: 08665 Init Hosp L2
[2024-01-30] MEDS: Vancomycin HCl 1,250 MG in 0.9% Normal Saline (250mL Bag) 250 ML 167 MG IV (01:32)
--- NOTE | 2024-01-30 02:30 | PCM.RX.CS ---
Consult Antibiotic Management Pharmacy has been consulted to manage selected antibiotic: Vancomycin Type of Intervention Type of Consult: New start Labs Labs: Sodium 142 mmol/L (136-145) 01/29/24 20:31 Potassium 3.7 mmol/L (3.5-5.1) 01/29/24 20:31 Chloride 109 mmol/L (98-107) H 01/29/24 20:31 Carbon Dioxide 27.0 mmol/L (21.0-32.0) 01/29/24 20:31 Anion Gap 7 (5-15) 01/29/24 20:31 BUN 23 mg/dL (7-18) H 01/29/24 20:31 Creatinine 1.23 mg/dL (0.55-1.02) H 01/29/24 20:31 Est GFR (MDRD) Af Amer 54 mL/min (>60) L 01/29/24 20:31 Est GFR (MDRD) Non-Af 44 mL/min (>60) L 01/29/24 20:31 BUN/Creatinine Ratio 18.7 RATIO (-20) 01/29/24 20:31 Glucose 105 mg/dL (74-106) 01/29/24 20:31 Dosing Weight Weight used for dosin kg Estimated Creatinine Clearance Estimated Creatinine Clearance: 37.62 Goal Trough Goal Trough: 15-20 mcg/mL Pharmacy Plan for Drug Dosing Pharmacy Plan for Drug Dosing: Pharmacy Service will continue to monitor and adjust dosing as required. 1250MG IN ER. 1250MG Q24H TROUGH PRIOR TO 3RD DOSE Follow-Up Labs Follow-Up Labs: Trough: Vancomycin Date/Time Labs Ordered Labs to be done on [date and time ordered]: 01/31 @ 0100
[2024-01-30] MEDS: Levothyroxine 75 MCG Tablet PO (03:14)
--- NOTE | 2024-01-30 10:40 | CASEMGMT ---
JAYDEN CERDA Discharge Planning Assessment: JAYDEN CERDA met [id number] with patient for initial transition planning/care coordination assessment. JAYDEN CERDA introduced self and role at [facility], pt voices understanding, and was agreeable to assessment in the presence of her daughter Danisha at the bedside. Care providers, pharmacy, and demographics verified. Dx: LLE cellulitis LACE=6/Risk Stratification=2 PCP: [facility] Specialists: pilot fuel engineer Dr. Dinero, urologist Dr. Hinds, business applications specialist [facility], and career services director Dr. Vera Insurance: [facility] Prescription Benefit: yes Preferred Pharmacy[facility] prescribed by an [facility] physician Living Will/HPOA: yes, both scanned into [facility] EMR; HPOA is spouse Gera followed by their four daughters Erin, Kellen, Amalia and Danisha LNOK: spouse Gera and four daughter noted above. Living Arrangements: Pt lives with her spouse; however her spouse has been in the [facility] TCU since December of this year. Pt's home is a two story home but they have created a FFSU with a handicap accessible bathroom and a ramp entrance. ADLs: Pt had been independent with ADLs and IADLS prior to this wound and since her daughter Danisha has been staying with her and Danisha reports pt to need min assistance with bathing and dressing. Pt has also been using the BSC. Transportation: Pt drives and daughters are able to assist with driving as needed. DME: pt has a BSC, walk in shower with grab bars and hand held shower, pt has a cane and walker and medical alert through [facility]. Pt sleeps in a regular bed with the ability to elevate the head. SNF: TCU previously [facility]: [facility] previously Pt's Preferred Plan: pt and daughter would like pt to go to TCU at discharge to rehabilitate with pt's spouse. Discussed plan of care pending evaluation by plastic surgeon and infectious disease and to determine discharge needs. Plan: ANNE Browning RN ACM
[2024-01-30] MEDS: Acetaminophen 325 MG Tablet 650 MG PO (11:24)
[2024-01-30] MEDS: Aztreonam 2 GM in 0.9% Normal Saline (100mL MB+) 100 ML IV ×2 (11:26→22:05)
--- NOTE | 2024-01-30 12:35 | WOUNDNOTE ---
wound photo: left lower leg
[2024-01-30] MEDS: Amiodarone 200 MG Tablet PO (15:47)
[2024-01-30] MEDS: Cholecalciferol (VIT D3) 25 MCG TABLET (1,000 UNITS) 50 MCG PO (15:47)
[2024-01-30] MEDS: Lactobacillis Acidophilus 1 CAP PO (15:48)
[2024-01-30] MEDS: DULoxetine Hcl 60 MG Capsule PO (15:48)
[2024-01-30] MEDS: Morphine 2 MG/ML Syringe IV ×2 (15:49→21:57)
[2024-01-30] MEDS: 0.9% Saline Lock 10 ML Syringe IV ×2 (15:50→21:58)
--- NOTE | 2024-01-30 16:11 | CHAPLAIN ---
Type of Pastoral Visit _x__ Initial Visit ___ Follow-up Visit ___ On-call Visit ___ General Patient Visit ___ Spiritual Assessment ___ Family Conference ___ Bereavement ___ Rapid Response ___ Code Blue ___ Other (describe below) Pastoral Care Referral From _x__ Patient ___ Family ___ Nurse ___ Physician ___ Pantry Chef ___ Sheriffs ___ Other (describe below) Sacrament/Intervention _x__ Active listening ___ Anointing ___ Confucianism ___ Bereavement ___ Communion ___ Alva exploration ___ _x__ Life review _x__ Prayer ___ Reconciliation ___ Sacrament of Sick _x__ Supportive presence ___ Wedding ___ Other (describe below) Pastoral Comments patient and spouse have been seen previously in various admissions; pt speaks of this instance; spouse is in TCU; daughters are in the room for support; all are talkative and express what is thought and felt; all welcome presence and prayer for support
--- NOTE | 2024-01-30 17:24 | CON.PCM.SX_ITS ---
Assessment & Plan Assessment/Plan (1) Dog bite of left lower leg: QUALIFIERS: Encounter type: sequela Qualified Code(s): S81.852S - Open bite, left lower leg, sequela; W54.0XXS - Bitten by dog, sequela (2) Wound of left lower extremity: (3) Abscess of left lower extremity: PLAN: Plan I am concerned for full-thickness tissue loss on the left lower extremity after the avulsion injury. There appears to be surrounding cellulitis and potentially a fluid collection beneath the avulsion flap. Given that there is tissue necrosis and potential fluid collection, this warrants excision in the operating room (since she is on Eliquis) with likely cultures. I discussed with her the risk benefits and alternatives to surgery. We talked about bleeding, infection worsening, damage to surrounding structures, failure to obtain the desired result, potential for making the wound bigger, and need for repeat operations. N.p.o. midnight. Plan for debridement under local and sedation in the operating room. Okay to continue Eliquis. Likely placement of a wound VAC following debridement. HPI Consult Data Date of Consult: 01/30/24 HPI Narrative HPI Narrative: BRADLEY GILMORE, is a 83 F with history of rheumatoid arthritis (no current immunosuppressive's), atrial fibrillation (on Eliquis), hypothyroidism, and hypertension who presents with a left lower extremity wound that occurred on 25 January 2024 (last week) when a friendly dog accidentally scratched her leg with its paw. She unfortunately had to go to the emergency department after this as she had a small avulsion flap of skin. She was placed on doxycycline. She was admitted to the hospital this morning out of concern for infection of the left lower extremity (cellulitis) around the wound edges and necrosis of the avulsion flap that was sutured back into place by the emergency department last week. She reports sharp severe pain in the left lower extremity worsened by movements and improved with rest and elevation. Today on the floor she has stable vital signs and is afebrile. Her white blood cell count is 7000. She is on Eliquis for atrial fibrillation. She has a history of DVT several years ago that was provoked (occurred during a hospitalization for GI bleed). She was not on any blood thinner after that, but was placed on blood thinner eventually for the atrial fibrillation. No history of problems with anesthesia. 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 She is fully healed this injury and cleared the osteomyelitis. On her x-ray from the emergency department here at [place] today she did not demonstrate any fracture or malalignment. 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 DVT (deep venous thrombosis) Cellulitis of left lower extremity Hyperlipidemia Paroxysmal atrial fibrillation History of Clostridium difficile Home Medications ?Medication ?Instructions ?Recorded ?Last Taken ?Type handicap placcard #1 ea 05/07/20 Unknown Rx levothyroxine 75 mcg tablet 75 mcg PO DAILY thyroid 02/05/21 Unknown History atorvastatin 20 mg tablet 20 mg PO QHS cholesterol #90 tabs 09/25/21 Unknown Rx apixaban 5 mg tablet (Eliquis) 5 mg PO BID blood thinner 04/27/22 Unknown History acetaminophen 500 mg tablet 1,000 mg (2 x 500 mg) PO Q6H PRN 02/21/23 Unknown Rx PRN Pain Score 1-5 #0 tabs cholecalciferol (vitamin D3) 25 50 mcg (2 x 25 mcg (1,000 unit)) 02/21/23 Unknown Rx mcg (1,000 unit) tablet PO DAILY #0 tabs L.acidophil,salivari-Bifido 1 cap PO DAILY 01/29/24 Unknown History bifidum-Strep thermoph 175 mg capsule (Acidophilus Probiotic Blend) amiodarone 200 mg tablet 200 mg PO DAILY 01/29/24 Unknown History d-mannose 500 mg capsule (AZO 1,000 mg PO BID 01/29/24 Unknown History D-Mannose) docusate sodium 100 mg capsule 100 mg PO QHS 01/29/24 Unknown History (Colace) duloxetine 60 mg capsule,delayed 60 mg PO DAILY 01/29/24 Unknown History release mirtazapine 15 mg tablet 30 mg PO QHS 01/29/24 Unknown History Allergy/AdvReac Type Severity Reaction Status Date / Time cephalexin monohydrate (From Allergy Hives Verified 01/29/24 20:15 Keflex) ethchlorvynol (From Placidyl) Allergy Unknown Verified 01/29/24 20:15 Penicillins (PCN) Allergy Unknown Verified 01/29/24 20:15 Sulfa (Sulfonamide Allergy Rash Verified 01/29/24 20:15 Antibiotics) sulfamethoxazole (From Allergy Unknown Verified 01/29/24 20:15 Septra) trimethoprim (From Septra) Allergy Unknown Verified 01/29/24 20:15 Family History Father CAD (coronary artery disease) Mother Breast cancer breast Surgical History History of appendectomy History of evacuation of hematoma (03/20/18) History of right knee joint replacement History of bunionectomy of both great toes H/O shoulder surgery History of arthroplasty of left knee H/O total hysterectomy H/O colectomy Hx of cholecystectomy History of tonsillectomy and adenoidectomy History of left heart catheterization (1999) surgical debridement left lower extremity (10/2014) Social History household members: spouse Smoking Status: Never smoker alcohol intake: current alcohol intake frequency: holidays/special occasions only Alcohol type: wine substance use type: does not use caffeine: Yes Type: coffee Number of servings: 2 Physical Exam Narrative Patient has a left lower extremity wound with a full-thickness avulsion flap from the injury. She has surrounding induration and cellulitis. There appears to be fluid beneath the avulsion flap. No ascending redness or crepitus. No streaking erythema. No palpable left lower extremity lymphadenopathy Vascular: 2+ posterior tibial and dorsalis pedis pulses Sensation: Intact to light touch on the foot and ankle distal to the zone of injury. Motor: Able to plantarflex and dorsiflex her foot 5 out of 5 strength, no signs of compartment syndrome. Lab / Micro Data 01/29/24 20:31 01/29/24 20:31 Labs: Laboratory Results - last 24 hr 01/29/24 20:31: WBC 7.7, RBC 4.46, Hgb 14.0, Hct 43.6, MCV 97.8, MCH 31.4, MCHC 32.1, RDW Std Deviation 48.4 H, RDW Coeff of Jessica 13.5, Plt Count 285, MPV 10.6, Immature Gran % (Auto) 0.500, Neut % (Auto) 53.6, Lymph % (Auto) 29.3, [place] % (Auto) 12.8 H, Eos % (Auto) 3.0, Baso % (Auto) 0.8, Absolute Neuts (auto) 4.1, Absolute Lymphs (auto) 2.25, Nucleated RBC % 0, Sodium 142, Potassium 3.7, C hloride 109 H, Carbon Dioxide 27.0, Anion Gap 7, BUN 23 H, Creatinine 1.23 H, Estim Creat Clear Calc 37.62, Est GFR (MDRD) Af Amer 54 L, Est GFR (MDRD) Non-Af 44 L, BUN/Creatinine Ratio 18.7, Glucose 105, Lactic Acid 1.2, Calcium 9.0 Imaging Radiology Impression Tibia/Fibula X-Ray 01/29/24 22:18 IMPRESSION: No fracture or malalignment. Soft tissue swelling with no osseous erosion. Electronically Signed: Juan Luis Queen MD at 23:00 EDT Reading Location ID and State: [facility] / [place] Tel , Service support , Charges/Coding Multi Select Codes Visit Charges Office Visit/Consults: 77867 IP Consult L4 (57 Modifier )
--- NOTE | 2024-01-30 18:44 | CON.PCM.ID_ITS ---
Assessment & Plan Assessment/Plan (1) Dog scratch: (2) Cellulitis of left leg: PLAN: On vanc/aztreonam. Surg consulted. MRI showed abscess. Will follow, thank you HPI Consult Data Date of Consult: 01/30/24 HPI Narrative Reason for Consultation: infected wound HPI Narrative: BRADLEY GILMORE, is a 83 F who presented after having L jimenez scratched by a dog 5 days ago. Had progressive L lower leg redness, swelling, and moderate pain. No fever or chills. No drainage. No recent abx. Came to ED, admitted on vanc/aztreonam. Reports rash with PCN about 60 years ago. Feeling better, leg is a little less sore. Full ROS performed and neg except as noted above. 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 DVT (deep venous thrombosis) Cellulitis of left lower extremity Hyperlipidemia Paroxysmal atrial fibrillation History of Clostridium difficile Home Medications ?Medication ?Instructions ?Recorded ?Last Taken ?Type handicap placcard #1 ea 05/07/20 Unknown Rx levothyroxine 75 mcg tablet 75 mcg PO DAILY thyroid 02/05/21 Unknown History atorvastatin 20 mg tablet 20 mg PO QHS cholesterol #90 tabs 09/25/21 Unknown Rx apixaban 5 mg tablet (Eliquis) 5 mg PO BID blood thinner 04/27/22 Unknown History acetaminophen 500 mg tablet 1,000 mg (2 x 500 mg) PO Q6H PRN 02/21/23 Unknown Rx PRN Pain Score 1-5 #0 tabs cholecalciferol (vitamin D3) 25 50 mcg (2 x 25 mcg (1,000 unit)) 02/21/23 Unknown Rx mcg (1,000 unit) tablet PO DAILY #0 tabs L.acidophil,salivari-Bifido 1 cap PO DAILY 01/29/24 Unknown History bifidum-Strep thermoph 175 mg capsule (Acidophilus Probiotic Blend) amiodarone 200 mg tablet 200 mg PO DAILY 01/29/24 Unknown History d-mannose 500 mg capsule (AZO 1,000 mg PO BID 01/29/24 Unknown History D-Mannose) docusate sodium 100 mg capsule 100 mg PO QHS 01/29/24 Unknown History (Colace) duloxetine 60 mg capsule,delayed 60 mg PO DAILY 01/29/24 Unknown History release mirtazapine 15 mg tablet 30 mg PO QHS 01/29/24 Unknown History Allergy/AdvReac Type Severity Reaction Status Date / Time cephalexin monohydrate (From Allergy Hives Verified 01/29/24 20:15 Keflex) ethchlorvynol (From Placidyl) Allergy Unknown Verified 01/29/24 20:15 Penicillins (PCN) Allergy Unknown Verified 01/29/24 20:15 Sulfa (Sulfonamide Allergy Rash Verified 01/29/24 20:15 Antibiotics) sulfamethoxazole (From Allergy Unknown Verified 01/29/24 20:15 Septra) trimethoprim (From Septra) Allergy Unknown Verified 01/29/24 20:15 Family History Father CAD (coronary artery disease) Mother Breast cancer breast Surgical History History of appendectomy History of evacuation of hematoma (03/20/18) History of right knee joint replacement History of bunionectomy of both great toes H/O shoulder surgery History of arthroplasty of left knee H/O total hysterectomy H/O colectomy Hx of cholecystectomy History of tonsillectomy and adenoidectomy History of left heart catheterization (1999) surgical debridement left lower extremity (10/2014) Social History household members: spouse Smoking Status: Never smoker alcohol intake: current alcohol intake frequency: holidays/special occasions only Alcohol type: wine substance use type: does not use caffeine: Yes Type: coffee Number of servings: 2 Physical Exam Const alert, oriented x3 and no apparent distress General Appearance: cooperative HEENT normocephalic and head/scalp atraumatic Eyes PERRL and EOMs intact bilaterally Neck supple and No nodes Resp normal air movement and clear to auscultation bilaterally Cardio regular rate and regular rhythm GI soft to palpation, non-tender and non-distended Extremity General Extremity: edema Skin Skin Narrative: L jimenez wound with surrounding redness, swelling, tenderness Neuro CN's II-XII intact bilaterally Lab / Micro Data Attestation: I reviewed the patient's lab results. 01/29/24 20:31 01/29/24 20:31 Labs: Laboratory Results - last 24 hr 01/29/24 20:31: WBC 7.7, RBC 4.46, Hgb 14.0, Hct 43.6, MCV 97.8, MCH 31.4, MCHC 32.1, RDW Std Deviation 48.4 H, RDW Coeff of Jessica 13.5, Plt Count 285, MPV 10.6, Immature Gran % (Auto) 0.500, Neut % (Auto) 53.6, Lymph % (Auto) 29.3, [place] % (Auto) 12.8 H, Eos % (Auto) 3.0, Baso % (Auto) 0.8, Absolute Neuts (auto) 4.1, Absolute Lymphs (auto) 2.25, Nucleated RBC % 0, Sodium 142, Potassium 3.7, C hloride 109 H, Carbon Dioxide 27.0, Anion Gap 7, BUN 23 H, Creatinine 1.23 H, Estim Creat Clear Calc 37.62, Est GFR (MDRD) Af Amer 54 L, Est GFR (MDRD) Non-Af 44 L, BUN/Creatinine Ratio 18.7, Glucose 105, Lactic Acid 1.2, Calcium 9.0 Imaging Radiology Impression Tibia/Fibula X-Ray 01/29/24 22:18 IMPRESSION: No fracture or malalignment. Soft tissue swelling with no osseous erosion. Electronically Signed: Juan Luis Queen MD at 23:00 EDT ,
[2024-01-30] MEDS: APIXABAN 5 MG TABLET PO (21:47)
[2024-01-30] MEDS: Atorvastatin Calcium 20 MG Tablet PO (21:48)
[2024-01-30] MEDS: Docusate Sodium 100 MG Capsule PO (21:48)
[2024-01-30] MEDS: Mirtazapine 30 MG Tablet PO (21:48)
[2024-01-31] VITALS (20 sets, daily range): BP systolic 99–153; BP diastolic 41–117; PULSE 61–89; RESP 16–18; TEMP 36.2–36.6; O2SAT 93–99; BMI 32.5
[2024-01-31] MEDS: Vancomycin HCl 1,250 MG in 0.9% Normal Saline (250mL Bag) 250 ML 167 MG IV (00:57)
[2024-01-31] MEDS: Levothyroxine 75 MCG Tablet PO (05:54)
[2024-01-31 05:55] LABS: Absolute Lymphocyte Count 1.57 X10^3/uL (0.83-4.51); Absolute Neutrophil Count 2.9 X10^3/uL (2.0-7.7); Basophil# 0.05 X10^3/uL; Basophil% 0.9 % (0-1); Eosinophil# 0.23 X10^3/uL; Eosinophils% 4.2 % (0-5); Hematocrit 38.9 % (37-47); Hemoglobin 12.3 g/dL (12.0-15.0); Lymphocyte # 1.57 X10^3/ul (0.83-4.51); Lymphocyte % 28.3 % (19-41); Mean Corp Hgb Conc 31.6 g/dL (32-36); Mean Corpuscular Hgb 31.6 pg (27.0-32.0); Mean Platelet Vol. 9.6 fl (6.2-12.0); Monocyte# 0.77 X10^3/uL; Monocyte% 13.9 % (0-10); NRBC Flagged by Analyzer 0 % (0-5); Neutrophil # 2.88 X10^3/uL (2.7-7.7); Platelet Count 219 K/mm3 (150-450); RBC Distribution Width CV 13.4 % (11.6-14.6); RBC Distribution Width SD 49.4 fl (35.1-43.9); Red Blood Count 3.89 M/mm3 (4.2-5.4); White Blood Count 5.5 K/mm3 (4.4-11.0)
--- NOTE | 2024-01-31 05:55 | EKG12_ITS ---
Test Reason : PRE OP Blood Pressure : / mmHG Vent. Rate : 062 BPM Atrial Rate : 062 BPM P-R Int : 174 ms QRS Dur : 092 ms QT Int : 446 ms P-R-T Axes : 052 -04 059 degrees QTc Int : 452 ms Normal sinus rhythm Minimal voltage criteria for LVH, may be normal variant ( R in aVL ) Nonspecific T wave abnormality Abnormal ECG When compared with ECG of 15-JAN-2023 10:36, Nonspecific T wave abnormality, improved in Inferior leads QT has lengthened Confirmed by ALEX LOWERY, ISIAH ([id number]), script editor MABLE DELAROSA ([id number]) on 02/02/2024 9:29:17 AM Referred By: Samuel Christensen Confirmed By:ISIAH JOHNSON MD
[2024-01-31 06:31] LABS: International Normalized Ratio 1.1; Prothrombin Time (Protime)PT. 14.1 SECONDS (11.7-14.9)
[2024-01-31 06:32] LABS: Partial Thromboplast Time 28.3 Seconds (24.1-36.2)
[2024-01-31 06:35] LABS: Anion Gap 1 (5-15); BUN 28 mg/dL (7-18); BUN/Creat Ratio 26.9 RATIO (10-20); Calcium,Total 9.1 mg/dL (8.5-10.1); Chloride 109 mmol/L (98-107); Creatinine, Serum 1.04 mg/dL (0.55-1.02); EST Glomerular Filtration Rate 54 mL/min (>60); Est Glom Filt Rate - Afr Amer 65 mL/min (>60); Estimated Creatinine Clearance 44.26 ml/min; Glucose 105 mg/dL (74-106); Potassium 4.9 mmol/L (3.5-5.1); Sodium Level 138 mmol/L (136-145)
[2024-01-31] MEDS: Aztreonam 2 GM in 0.9% Normal Saline (100mL MB+) 100 ML IV (09:19)
--- NOTE | 2024-01-31 10:36 | PCM.PN.ID ---
Physical Exam Narrative Feeling better, OR planned, less pain and redness, no fever, no n/v/d. Const alert and no apparent distress General Appearance: cooperative Resp normal air movement and clear to auscultation bilaterally Cardio regular rate and regular rhythm GI soft to palpation, non-tender and non-distended Skin Skin Narrative: L lower leg less red ID ID: Route of nutrition/ use of supplements: [] Nutritional Intake: [] IV Site: [] Hsu Catheter: [] Assessment & Plan Assessment/Plan (1) Dog scratch: (2) Cellulitis of left leg: PLAN: On vanc/aztreonam. Surg consulted, OR planned. Will change to vanc/ceftriaxone/flagyl. Will follow
--- NOTE | 2024-01-31 10:45 | PCM.PRE.AN2 ---
ASA Classification* ASA Classification ASA Classification: 3 Assessment & Plan Anesthesia* Anesthesia Assessment Anesthesia Assessment: Discussed sedation and/or anesthesia options, risks, benefits, and alternatives with patient/parents/legal guardian/POA. Questions invited. The patient/parents/legal guardian/POA seems to understand and agrees to proceed with anesthesia plan. Reviewed the physical assessment, medical history, allergy history and patient home medications list prior to surgery/procedure/anesthetic and documented any changes. Performed airway and anesthesia risk assessments. Anesthesia Type Anesthesia Type: General History Source History Obtained from:: Patient and Chart Anesthesia Focused Assessment* Temperature: 97.4 F Pulse Rate: 63 Blood Pressure: 126/49 Respiratory Rate: 18 Pulse Ox: 99 Oxygen Delivery Method: Room Air Airway Assessment Mouth opens: >3 cm Mallampati Score: IV Teeth Condition: Partial (Patient has top and bottom partial. They are out.) Neck Range of motion (ROM): Limited ROM Pertinent Findings EKG Pertinent Findings:: Temperature 2023. Normal sinus rhythm. Nonspecific T wave abnormality. Focused Labs Anesthesia Preop lab: CBC WBC 5.5 K/mm3 (4.4-11.0) 01/31/24 05:22 RBC 3.89 M/mm3 (4.2-5.4) L 01/31/24 05:22 Hgb 12.3 g/dL (12.0-15.0) 01/31/24 05:22 Hct 38.9 % (37-47) 01/31/24 05:22 Plt Count 219 K/mm3 (150-450) 01/31/24 05:22 CHEMISTRY Potassium 4.9 mmol/L (3.5-5.1) 01/31/24 05:22 Sodium 138 mmol/L (136-145) 01/31/24 05:22 Magnesium 1.9 mg/dL (1.6-2.6) 07/12/17 06:46 BUN 28 mg/dL (7-18) H 01/31/24 05:22 Creatinine 1.04 mg/dL (0.55-1.02) H 01/31/24 05:22 Glucose 105 mg/dL (74-106) 01/31/24 05:22 POC Glucose 128 mg/dL (70-110) H 04/16/18 15:23 TSH 6.380 uIU/mL (0.358-3.740) H 01/31/24 05:22 COAG PT 14.1 SECONDS (11.7-14.9) 01/31/24 05:22 Pre-Assessment Diagnosis/Proposed Procedure Planned Operative Procedure(s): Irrigation and debridement left lower extremity Anesthesia History Anesthesia History - 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 When Was Last Pacemaker Check QUESTION #4 FULL TEXT: You/Your Family Experience fever (hyperthermia) with Anesthesia Last Oral Intake Last Oral intake: Last Oral Intake NPO since 00:00 01/31/24 08:20 Meds taken in AM with sips of water? Meds patient instructed to take am of surgery Any additional information?: Yes Meds taken in AM with sips of water?: Yes Meds patient instructed to take am of surgery: Patient was given her amiodarone, Eliquis, duloxetine, levothyroxine this morning. PONV PONV - enterprise mobility architect: PONV - enterprise mobility architect Female HX of Motion Sickness HX of N/V After Surgery Non-Smoker Duration of Surgery greater than 60 minutes Number of Risk Factors PONV Score Height & Weight Height & Weight: Anesthesia: Height & Weight Height 5 ft 4 in 01/31/24 08:20 Weight: 86 kg 01/31/24 08:20 Body Mass Index (BMI) 32.5 01/31/24 08:20 Respiratory Assessment Respiratory Assessment - enterprise mobility architect: Respiratory Tract Infection Hx - enterprise mobility architect Hx Respiratory Tract Infection No 01/31/24 01:00 STOP Sleep Apnea STOP Sleep Apnea - enterprise mobility architect: STOP Sleep Apnea - enterprise mobility architect Hx Hypertension No 01/30/24 01:56 Hx Sleep Apnea No 01/30/24 01:56 CPAP No 01/30/24 01:56 BIPAP No 01/30/24 01:56 Do you snore loudly (louder Yes 01/30/24 01:56 than talking or can be heard Do you often feel tired/ No 01/30/24 01:56 fatigued/ sleepy during daytime? Has anyone observed you stop No 01/30/24 01:56 breathing during sleep? STOP Results Negative 01/30/24 01:56 QUESTION #5 FULL TEXT : Do you snore loudly (louder than talking or can be heard through closed doors)? 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 Specify any problems Hx of Preganancy in last 3 N/A 01/30/24 01:56 Months Nurse Filling Out Transfusion ALOWDEN 01/30/24 01:56 & Questions: Date: 01/30/24 01/30/24 01:56 Time: 02:30 01/30/24 01:56 Patient unable to answer at this time (ie. confused, unrespo /Reproduction History /Reproductive History - enterprise mobility architect: /Reproductive Hx- enterprise mobility architect Hx Now No 01/31/24 01:00 Gestational Age (in weeks): EDC: Hx Hx Para Hx Section SAB No 01/31/24 01:00 Active Medications Active Medications: Current Medications Generic Name Dose Route Start Last Admin Trade Name Freq PRN Reason Stop Dose Admin Acetaminophen 650 mg 01/30/24 01:56 01/30/24 11:24 Acetaminophen 325 Mg Tablet PO 650 mg Q6H PRN PRN Administration Pain Score 1-5/10 or fever Amiodarone HCl 200 mg 01/30/24 10:00 01/30/24 15:47 Amiodarone 200 Mg Tablet PO 200 mg DAILY ERIK Administration Apixaban 5 mg 01/30/24 10:00 01/30/24 21:47 Apixaban 5 Mg Tablet PO 5 mg BID ERIK Administration Atorvastatin Calcium 20 mg 01/30/24 22:00 01/30/24 21:48 Atorvastatin Calcium 20 Mg Tablet PO 20 mg QHS ERIK Administration Cholecalciferol 50 mcg 01/30/24 10:00 01/30/24 15:47 Cholecalciferol (Vit D3) 25 Mcg Tablet (1,000 Units) PO 50 mcg DAILY ERIK Administration Sodium Hypochlorite 473 ml/ 0 ml 01/31/24 11:30 Sodium Chloride 473 ml IRRIGATION UD ERIK Docusate Sodium 100 mg 01/30/24 22:00 01/30/24 21:48 Docusate Sodium 100 Mg Capsule PO 100 mg QHS ERIK Administration Duloxetine HCl 60 mg 01/30/24 10:00 01/30/24 15:48 Duloxetine Hcl 60 Mg Capsule PO 60 mg DAILY ERIK Administration Vancomycin IV-PHARMACY TO DOSE 500 mls @ 250 mls/hr 01/30/24 01:56 1 each/ Sodium Chloride IV X1 PRN Rx to Dose Protocol Sodium Chloride 500 mls @ 15 mls/hr 01/30/24 01:57 IV .[id number] PRN Saline Flush Sodium Chloride 500 mls @ 15 mls/hr 01/30/24 01:57 IV .[id number] PRN Additional IVPB Infusion Vancomycin HCl 1,250 mg/ 275 mls @ 167 mls/hr 01/31/24 01:30 01/31/24 02:36 Sodium Chloride IV Infused Q24H ERIK Infusion Ceftriaxone Sodium 2 gm/ 50 mls @ 100 mls/hr 01/31/24 10:00 Sodium Chloride IV Q24 ERIK Levothyroxine Sodium 75 mcg 01/30/24 06:00 01/31/24 05:54 Levothyroxine 75 Mcg Tablet PO 75 mcg DAILY@0600 ERIK Administration Metronidazole 500 mg 01/31/24 10:00 Metronidazole 500 Mg Tablet PO TID ERIK Mirtazapine 30 mg 01/30/24 22:00 01/30/24 21:48 Mirtazapine 30 Mg Tablet PO 30 mg QHS ERIK Administration Morphine Sulfate 2 mg 01/30/24 01:56 01/30/24 21:57 Morphine 2 Mg/Ml Syringe IV 2 mg Q4H PRN PRN Administration Pain Score 6-10 Sodium Chloride 10 - 40 ml 01/30/24 01:57 01/30/24 21:58 0.9% Saline Lock 10 Ml Syringe IV 10 ml UD PRN Administration SALINE FLUSH Vancomycin Protocol 1 lab 01/31/24 23:00 Vancomycin Trough/Random Due [facility] 02/01/24 03:00 DAILY [facility] Medical History Pacemaker Open wound of right buttock with complication Traumatic hematoma of buttock Hematoma of right lower extremity Depression Vitamin D deficiency Gastrointestinal bleed Rheumatoid arthritis Hypothyroidism Compression fracture of L3 vertebra Acute blood loss anemia GI bleed Peptic ulcer disease 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 DVT (deep venous thrombosis) Cellulitis of left lower extremity Hyperlipidemia Paroxysmal atrial fibrillation History of Clostridium difficile Home Medications ?Medication ?Instructions ?Recorded ?Last Taken ?Type handicap placcard #1 ea 05/07/20 Unknown Rx levothyroxine 75 mcg tablet 75 mcg PO DAILY thyroid 02/05/21 Unknown History atorvastatin 20 mg tablet 20 mg PO QHS cholesterol #90 tabs 09/25/21 Unknown Rx apixaban 5 mg tablet (Eliquis) 5 mg PO BID blood thinner 04/27/22 Unknown History acetaminophen 500 mg tablet 1,000 mg (2 x 500 mg) PO Q6H PRN 02/21/23 Unknown Rx PRN Pain Score 1-5 #0 tabs cholecalciferol (vitamin D3) 25 50 mcg (2 x 25 mcg (1,000 unit)) 02/21/23 Unknown Rx mcg (1,000 unit) tablet PO DAILY #0 tabs L.acidophil,salivari-Bifido 1 cap PO DAILY 01/29/24 Unknown History bifidum-Strep thermoph 175 mg capsule (Acidophilus Probiotic Blend) amiodarone 200 mg tablet 200 mg PO DAILY 01/29/24 Unknown History d-mannose 500 mg capsule (AZO 1,000 mg PO BID 01/29/24 Unknown History D-Mannose) docusate sodium 100 mg capsule 100 mg PO QHS 01/29/24 Unknown History (Colace) duloxetine 60 mg capsule,delayed 60 mg PO DAILY 01/29/24 Unknown History release mirtazapine 15 mg tablet 30 mg PO QHS 01/29/24 Unknown History golimumab 12.5 mg/mL intravenous See Rx Instructions IV .COMPLEX 01/31/24 12/07/23 History solution (Simponi ARIA) arthritis Allergy/AdvReac Type Severity Reaction Status Date / Time cephalexin monohydrate (From Allergy Hives Verified 01/29/24 20:15 Keflex) ethchlorvynol (From Placidyl) Allergy Unknown Verified 01/29/24 20:15 Penicillins (PCN) Allergy Unknown Verified 01/29/24 20:15 Sulfa (Sulfonamide Allergy Rash Verified 01/29/24 20:15 Antibiotics) sulfamethoxazole (From Allergy Unknown Verified 01/29/24 20:15 Septra) trimethoprim (From Septra) Allergy Unknown Verified 01/29/24 20:15 Family History Father CAD (coronary artery disease) Mother Breast cancer breast Surgical History History of appendectomy History of evacuation of hematoma (03/20/18) History of right knee joint replacement History of bunionectomy of both great toes H/O shoulder surgery History of arthroplasty of left knee H/O total hysterectomy H/O colectomy Hx of cholecystectomy History of tonsillectomy and adenoidectomy History of left heart catheterization (1999) surgical debridement left lower extremity (10/2014) Social History household members: spouse Smoking Status: Never smoker alcohol intake: current alcohol intake frequency: holidays/special occasions only Alcohol type: wine substance use type: does not use caffeine: Yes Type: coffee Number of servings: 2 Review of Systems (Anesthesia) ROS Narrative System reviewed and no additional complaints, except as documented.
--- NOTE | 2024-01-31 11:14 | PN.HOSP_ITS ---
Subjective Subjective Doing well, no issues overnight Objective Data Objective Data Vital Signs: Vital Signs Temp Pulse Resp BP Pulse Ox O2 Del Method O2 Flow Rate 97.4 F L 63 18 126/49 H 99 Room Air 2 01/31/24 11:03 01/31/24 11:03 01/31/24 11:03 01/31/24 11:03 01/31/24 11:03 01/31/24 11:03 01/31/24 11:03 Oxygen Flow Rate (L/min) 2 Oxygen Delivery Method Room Air Weight: 189 lb 9.561 oz Body Mass Index (BMI) 32.5 Intake & Output: Intake and Output for Last 24 Hours 01/30/24 01/31/24 02/01/24 03:59 03:59 03:59 Intake Total 386.58 / 386.58 895 / 895 100 / 100 Output Total 525 / 525 Balance 386.58 / 386.58 370 / 370 100 / 100 Lab / Micro Data 01/31/24 05:22 01/31/24 05:22 Labs: Laboratory Results - last 24 hr 01/31/24 05:22: WBC 5.5, RBC 3.89 L, Hgb 12.3, Hct 38.9, MCV 100.0 H, MCH 31.6, MCHC 31.6 L, RDW Std Deviation 49.4 H, RDW Coeff of Jessica 13.4, Plt Count 219, MPV 9.6, Immature Gran % (Auto) 0.700, Neut % (Auto) 52.0, Lymph % (Auto) 28.3, [place] % (Auto) 13.9 H, Eos % (Auto) 4.2, Baso % (Auto) 0.9, Absolute Neuts (auto) 2.9, Absolute Lymphs (auto) 1.57, Nucleated RBC % 0, PT 14.1, INR 1.1, APTT 28.3, Sodium 138, Potassium 4.9, Chloride 109 H, Carbon Dioxide 28.0, Anion Gap 1 L, B UN 28 H, Creatinine 1.04 H, Estim Creat Clear Calc 44.26, Est GFR (MDRD) Af Amer 65, Est GFR (MDRD) Non-Af 54 L, BUN/Creatinine Ratio 26.9 H, Glucose 105, Calcium 9.1, TSH 6.380 H Physical Exam Narrative General: Alert, Oriented x3, Cooperative, No apparent distress HEENT: Atraumatic, PERRLA, EOMI, Normocephalic Oral: Moist Mucosa Neck: Supple, No JVD Lungs: Clear to auscultation, Normal air movement, No rhonchi, No wheeze, No rales Cardiovascular: Regular rate, Regular Rhythm, Normal S1, Normal S2, No murmurs Abdomen: Soft, Non Tender, Non-Distended, No Hepato-splenomegaly Extremities: No edema, Capillary Refill Less than 3 Seconds Skin: Left lower extremity dressing intact, pictures reviewed Musculoskeletal: No Tenderness to Palpation of Joints or Extremities Neurological: No focal neurological deficits, Motor Exam 5/5 strength throughout, Sensory exam intact to light touch and pain Psych/Mental Status: Normal Affect, Appropriate Assessment & Plan Assessment/Plan (1) Cellulitis of left leg: (2) Dog scratch: PLAN: Plan 1. Cellulitis of the left lower extremity failed outpatient treatment secondary to a dog scratch ? Appreciate IDs assistance, continue with antibiotics ? Plastic surgery was consulted plan for OR today ? No leukocytosis and is afebrile 2. Essential HTN/HLD/paroxysmal A-fib ? Will hold Eliquis ? Continue with her home blood pressure medications ? Monitor make adjustments as necessary 3. Hypothyroidism ? Stable ? Continue with Synthroid ? TSH is 6.38, recommend outpatient monitoring 4. Anxiety/depression ? Stable ? Continue with her home medications DVT: Will discontinue Eliquis until cleared by plastic surgery to resume Charges/Coding Visit Charges Inpatient E&M: 74027 Subs Hosp L2
--- NOTE | 2024-01-31 11:58 | WOUNDNOTE ---
Pt is currently off unit for surgery.
--- NOTE | 2024-01-31 12:55 | HP.PCM.SX_ITS ---
HPI - General General Date of Admission: 01/30/24 Chief Complaint: Increasing LLE Wound with Redness and Pain. HPI Narrative Current Encounter (DATE OF SURGERY H&P UPDATE): I saw and examined the patient this morning in pre-operative holding. We discussed risks and benefits of today's surgery and they would like to proceed. NO CHANGE in health history since last seen and evaluated. Ready to proceed with surgery. 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 DVT (deep venous thrombosis) Cellulitis of left lower extremity Hyperlipidemia Paroxysmal atrial fibrillation History of Clostridium difficile Home Medications ?Medication ?Instructions ?Recorded ?Last Taken ?Type handicap placcard #1 ea 05/07/20 Unknown Rx levothyroxine 75 mcg tablet 75 mcg PO DAILY thyroid 02/05/21 Unknown History atorvastatin 20 mg tablet 20 mg PO QHS cholesterol #90 tabs 09/25/21 Unknown Rx apixaban 5 mg tablet (Eliquis) 5 mg PO BID blood thinner 04/27/22 Unknown History acetaminophen 500 mg tablet 1,000 mg (2 x 500 mg) PO Q6H PRN 02/21/23 Unknown Rx PRN Pain Score 1-5 #0 tabs cholecalciferol (vitamin D3) 25 50 mcg (2 x 25 mcg (1,000 unit)) 02/21/23 Unknown Rx mcg (1,000 unit) tablet PO DAILY #0 tabs L.acidophil,salivari-Bifido 1 cap PO DAILY 01/29/24 Unknown History bifidum-Strep thermoph 175 mg capsule (Acidophilus Probiotic Blend) amiodarone 200 mg tablet 200 mg PO DAILY 01/29/24 Unknown History d-mannose 500 mg capsule (AZO 1,000 mg PO BID 01/29/24 Unknown History D-Mannose) docusate sodium 100 mg capsule 100 mg PO QHS 01/29/24 Unknown History (Colace) duloxetine 60 mg capsule,delayed 60 mg PO DAILY 01/29/24 Unknown History release mirtazapine 15 mg tablet 30 mg PO QHS 01/29/24 Unknown History golimumab 12.5 mg/mL intravenous See Rx Instructions IV .COMPLEX 01/31/24 12/07/23 History solution (Simponi ARIA) arthritis Allergy/AdvReac Type Severity Reaction Status Date / Time cephalexin monohydrate (From Allergy Hives Verified 01/29/24 20:15 Keflex) ethchlorvynol (From Placidyl) Allergy Unknown Verified 01/29/24 20:15 Penicillins (PCN) Allergy Unknown Verified 01/29/24 20:15 Sulfa (Sulfonamide Allergy Rash Verified 01/29/24 20:15 Antibiotics) sulfamethoxazole (From Allergy Unknown Verified 01/29/24 20:15 Septra) trimethoprim (From Septra) Allergy Unknown Verified 01/29/24 20:15 Family History Father CAD (coronary artery disease) Mother Breast cancer breast Surgical History History of appendectomy History of evacuation of hematoma (03/20/18) History of right knee joint replacement History of bunionectomy of both great toes H/O shoulder surgery History of arthroplasty of left knee H/O total hysterectomy H/O colectomy Hx of cholecystectomy History of tonsillectomy and adenoidectomy History of left heart catheterization (1999) surgical debridement left lower extremity (10/2014) Social History household members: spouse Smoking Status: Never smoker alcohol intake: current alcohol intake frequency: holidays/special occasions only Alcohol type: wine substance use type: does not use caffeine: Yes Type: coffee Number of servings: 2 Vital Signs Vital Signs Vital Signs: 01/30/24 14:00 01/30/24 15:28 01/30/24 15:33 Temperature 96.7 F L Temperature Source Temporal Pulse Rate 71 Pulse Strength Respiratory Rate 18 Respiratory Effort Normal Non-Labored Normal Non-Labored Respiratory Depth Normal Normal Respiratory Pattern Normal Normal Blood Pressure 126/61 H Blood Pressure Mean 82 Blood Pressure Source Blood Pressure Position Blood Pressure Location Pulse Ox 96 Oxygen Delivery Method Room Air Room Air Oxygen Flow Rate (L/min) 01/30/24 15:40 01/30/24 15:45 01/30/24 20:07 Temperature 98.0 F 98.1 F Temperature Source Oral Temporal Pulse Rate 67 72 Pulse Strength Respiratory Rate 18 18 Respiratory Effort Normal Non-Labored Respiratory Depth Normal Respiratory Pattern Normal Blood Pressure 141/55 H 137/60 H Blood Pressure Mean 83 85 Blood Pressure Source Monitor Blood Pressure Position Semi-Fowlers Blood Pressure Location Right Forearm Pulse Ox 93 93 Oxygen Delivery Method Room Air Room Air Room Air Oxygen Flow Rate (L/min) 01/30/24 21:45 01/30/24 21:45 01/30/24 22:00 Temperature 97.7 F L 97.7 F L Temperature Source Oral Oral Pulse Rate 77 77 Pulse Strength Normal (2+) Respiratory Rate 18 18 Respiratory Effort Respiratory Depth Respiratory Pattern Blood Pressure 124/59 H 124/59 H Blood Pressure Mean 80 80 Blood Pressure Source Monitor Blood Pressure Position Semi-Fowlers Blood Pressure Location Right Arm Pulse Ox 97 97 Oxygen Delivery Method Nasal Cannula Nasal Cannula Oxygen Flow Rate (L/min) 2 2 01/31/24 03:46 01/31/24 03:46 01/31/24 03:48 Temperature 97.5 F L 97.5 F L Temperature Source Oral Oral Pulse Rate 65 65 Pulse Strength Respiratory Rate 18 18 Respiratory Effort Normal Non-Labored Respiratory Depth Normal Respiratory Pattern Normal Blood Pressure 99/68 99/68 Blood Pressure Mean 78 78 Blood Pressure Source Monitor Blood Pressure Position Semi-Fowlers Blood Pressure Location Right Arm Pulse Ox 97 97 97 Oxygen Delivery Method Nasal Cannula Nasal Cannula Nasal Cannula Oxygen Flow Rate (L/min) 2 2 2 01/31/24 05:53 01/31/24 08:20 01/31/24 08:24 Temperature 97.6 F L 97.8 F Temperature Source Oral Oral Pulse Rate 61 62 Pulse Strength Respiratory Rate 18 16 Respiratory Effort Normal Non-Labored Respiratory Depth Normal Respiratory Pattern Normal Blood Pressure 125/56 H 119/52 L Blood Pressure Mean 79 74 Blood Pressure Source Monitor Monitor Blood Pressure Position Semi-Fowlers Semi-Fowlers Blood Pressure Location Left Arm Right Arm Pulse Ox 95 98 Oxygen Delivery Method Nasal Cannula Nasal Cannula Nasal Cannula Oxygen Flow Rate (L/min) 2 2 01/31/24 09:06 01/31/24 09:25 01/31/24 11:03 Temperature 97.5 F L 97.4 F L 97.4 F L Temperature Source Oral Oral Pulse Rate 65 63 63 Pulse Strength Respiratory Rate 18 18 18 Respiratory Effort Respiratory Depth Respiratory Pattern Blood Pressure 99/68 126/49 H 126/49 H Blood Pressure Mean 78 74 Blood Pressure Source Monitor Blood Pressure Position Semi-Fowlers Blood Pressure Location Right Arm Pulse Ox 97 99 99 Oxygen Delivery Method Nasal Cannula Nasal Cannula Room Air Oxygen Flow Rate (L/min) 2 2 2 Weight Weight: 189 lb 9.561 oz Body Mass Index (BMI) 32.5 Physical Exam Narrative Patient has a left lower extremity wound with a full-thickness avulsion flap from the injury. She has surrounding induration and cellulitis. There appears to be fluid beneath the avulsion flap. No ascending redness or crepitus. No streaking erythema. No palpable left lower extremity lymphadenopathy Vascular: 2+ posterior tibial and dorsalis pedis pulses Sensation: Intact to light touch on the foot and ankle distal to the zone of injury. Motor: Able to plantarflex and dorsiflex her foot 5 out of 5 strength, no signs of compartment syndrome. Results Lab / Micro Data 01/31/24 05:22 01/31/24 05:22 Labs: Laboratory Results - last 24 hr 01/31/24 05:22: WBC 5.5, RBC 3.89 L, Hgb 12.3, Hct 38.9, MCV 100.0 H, MCH 31.6, MCHC 31.6 L, RDW Std Deviation 49.4 H, RDW Coeff of Jessica 13.4, Plt Count 219, MPV 9.6, Immature Gran % (Auto) 0.700, Neut % (Auto) 52.0, Lymph % (Auto) 28.3, [place] % (Auto) 13.9 H, Eos % (Auto) 4.2, Baso % (Auto) 0.9, Absolute Neuts (auto) 2.9, Absolute Lymphs (auto) 1.57, Nucleated RBC % 0, PT 14.1, INR 1.1, APTT 28.3, Sodium 138, Potassium 4.9, Chloride 109 H, Carbon Dioxide 28.0, Anion Gap 1 L, B UN 28 H, Creatinine 1.04 H, Estim Creat Clear Calc 44.26, Est GFR (MDRD) Af Amer 65, Est GFR (MDRD) Non-Af 54 L, BUN/Creatinine Ratio 26.9 H, Glucose 105, Calcium 9.1, TSH 6.380 H Assessment & Plan Assessment/Plan (1) Abscess of left lower extremity: (2) Wound of left lower extremity: PLAN: Plan I talked the patient extensively about the risks of surgery, including bleeding, infection, damage to surrounding structures, surgical site dehiscence and wound formation, need for wound care, need for repeat operations, failure to obtain the desired result, DVT/PE, and the risks of anesthesia including (decision made to do LMA with anesthesia). The benefits and alternatives of this surgery were also discussed. All of their questions were answered, and they agreed to proceed with surgery. INTERVAL H&P PLAN, DATE OF SURGERY: We will proceed with surgery today. One update: Patient is on immunosuppressives (every two months she gets an injection) for her rheumatoid arthritis. She is scheduled to get the injection today. We will defer this medication at this time to promote wound healing.
[2024-01-31] MEDS: Ceftriaxone 2 GM in 0.9% Normal Saline (50mL MB+) 50 ML IV (12:58)
[2024-01-31] MEDS: Bupiv/Epi 0.25% 30 ML Vial (13:11)
[2024-01-31] MEDS: Sodium Hypochlorite (Dakin's) 0.125% Wound Irrigation IRRIGATION (13:11)
--- NOTE | 2024-01-31 13:51 | PCM.POST.ANE ---
Anesthesia: Postop Eval I Current Vital Signs Temperature: 97.1 F Pulse Rate: 89 Blood Pressure: 128/117 Respiratory Rate: 16 Pulse Ox: 94 Oxygen Delivery Method: Room Air Assessment Airway patent: Yes Spontaneous unlabored respirations: Yes Mental status: Awake nausea: No Vomiting: No Anesthesia Complication: No Fluid Hydration Crystalloid volume administer (ml): 250 Total IV fluid infused: 250 Progress Note Anesthesia document: Postop Eval 1 completed: Yes
[2024-01-31] MEDS: DULoxetine Hcl 60 MG Capsule PO (14:53)
[2024-01-31] MEDS: Lactobacillis Acidophilus 1 CAP PO (14:53)
[2024-01-31] MEDS: Cholecalciferol (VIT D3) 25 MCG TABLET (1,000 UNITS) 50 MCG PO (14:53)
[2024-01-31] MEDS: Amiodarone 200 MG Tablet PO (14:53)
[2024-01-31] MEDS: metroNIDAZOLE 500 MG Tablet PO ×2 (14:55→21:16)
--- NOTE | 2024-01-31 17:15 | POSTOPAN2_ITS ---
Anesthesia Postop Eval I Sum Postop Eval Completion status Anesthesia document: Postop Eval 1 completed: Yes Anesthesia Postop Eval I Summary Anesthesia Postop Eval I Summary: Anesthesia Postop Eval I: Assessment Summary Airway patent Yes 01/31/24 13:53 STRATEGIC PARTNERSHIP REPRESENTATIVE.[email or web address] Spontaneous unlabored Yes 01/31/24 13:53 STRATEGIC PARTNERSHIP REPRESENTATIVE.JDEF respirations Mental status Awake 01/31/24 13:53 STRATEGIC PARTNERSHIP REPRESENTATIVE.JDEF nausea No 01/31/24 13:53 STRATEGIC PARTNERSHIP REPRESENTATIVE.JDEF Vomiting No 01/31/24 13:53 STRATEGIC PARTNERSHIP REPRESENTATIVE.JDEF Anesthesia Postop Eval I: Fluid Summary Crystalloid volume administer 250 01/31/24 13:53 STRATEGIC PARTNERSHIP REPRESENTATIVE.JDEF (ml) Colloids volume administered ( ml) Blood Product volume administered (ml) Total IV fluid infused 250 01/31/24 13:53 STRATEGIC PARTNERSHIP REPRESENTATIVE.JDEF Anesthesia Postop Eval I: Summary Notes Anesthesia Complication No 01/31/24 13:53 STRATEGIC PARTNERSHIP REPRESENTATIVE.JDEF Anesthesia Complication Comment: Post-operative progress note Anesthesia: Postop Eval II Evaluation Mental status: Awake Pain Level: 0 nausea: No Vomiting: No
--- NOTE | 2024-01-31 17:15 | PCM.POSTANE2 ---
Anesthesia Postop Eval I Sum Postop Eval Completion status Anesthesia document: Postop Eval 1 completed: Yes Anesthesia Postop Eval I Summary Anesthesia Postop Eval I Summary: Anesthesia Postop Eval I: Assessment Summary Airway patent Yes 01/31/24 13:53 [email or web address] Spontaneous unlabored Yes 01/31/24 13:53 [email or web address] respirations Mental status Awake 01/31/24 13:53 [email or web address] nausea No 01/31/24 13:53 [email or web address].[email or web address] Vomiting No 01/31/24 13:53 [email or web address].[email or web address] Anesthesia Postop Eval I: Fluid Summary Crystalloid volume administer 250 01/31/24 13:53 [email or web address] (ml) Colloids volume administered ( ml) Blood Product volume administered (ml) Total IV fluid infused 250 01/31/24 13:53 [email or web address].[email or web address] Anesthesia Postop Eval I: Summary Notes Anesthesia Complication No 01/31/24 13:53 [email or web address] Anesthesia Complication Comment: Post-operative progress note Anesthesia: Postop Eval II Evaluation Mental status: Awake Pain Level: 0 nausea: No Vomiting: No
--- NOTE | 2024-01-31 20:56 | PCM.OP.BLANK ---
Operative Report Date of Procedure: 01/31/24 Surgery/Procedure Date: 31 Jan 2024 Incision/Procedure Start Time: 13:11 Incision Close/Procedure End Time: 13:30 PATIENT: Belia Pantoja SURGEON: Pato Enriquez MD PRE-OPERATIVE DIAGNOSIS: Left lower extremity wound POST-OPERATIVE DIAGNOSIS: same PROCEDURE PERFORMED: 1) excision of left lower extremity wound (6 x 9 cm), CPT: 92402 2) Placement of negative pressure wound therapy irrigating wound VAC, not disposable, CPT 28465 OPERATIVE FINDINGS: Abscess beneath nonviable skin flap that was cultured. Healthy subcutaneous tissue beneath the abscess cavity. No exposed vital structures. INDICATIONS: Belia Pantoja is a delightful 83-year-old who presents today for debridement of left lower extremity abscess/wound. I discussed with her risk benefits and alternatives to the procedure and she wanted to proceed. OPERATIVE DETAILS: The patient was correct identified in preoperative holding and taken back to the operating room where she was administered general anesthesia via an LMA. Once appropriate level of anesthesia was obtained she was prepped and draped in sterile fashion. A timeout was performed. A 15 blade scalpel was then used to excise all necrotic tissue from the wound bed and remove the sutures. There is an abscess cavity beneath the nonviable skin and fat which was excised. The abscess was cultured and removed. There was viable healthy tissue then at the base of the wound. The wound excision was 6 x 9 cm. The wound was then irrigated with 900 cc of Irrisept. We then placed negative pressure wound therapy irrigating wound VAC to irrigate Dakin's. The patient was awakened and taken to the PACU in stable condition. EBL: 20 cc Anesthesia: General and 10 cc of 0.25% bupivacaine with 1/100,000 epinephrine ASA: 3 IVF: 400 cc of normal saline UOP: Unmeasured Transfusions: None Ceftriaxone from the floor (scheduled) POST-OPERATIVE PLAN: Plan to remove irrigating wound VAC on , 02 February 2024 to look at the wound and then begin VAC changes. Continue IV antibiotics for treatment of cellulitis and follow-up wound cultures.
[2024-01-31] MEDS: Mirtazapine 30 MG Tablet PO (21:16)
[2024-01-31] MEDS: Atorvastatin Calcium 20 MG Tablet PO (21:16)
[2024-01-31] MEDS: Docusate Sodium 100 MG Capsule PO (21:16)
[2024-01-31] MEDS: Morphine 2 MG/ML Syringe IV (21:26)
[2024-01-31] MEDS: 0.9% Saline Lock 10 ML Syringe IV (21:27)
[2024-02-01] VITALS (8 sets, daily range): BP systolic 94–138; BP diastolic 40–71; PULSE 61–78; RESP 14–18; TEMP 36.1–36.8; O2SAT 89–98
[2024-02-01] MEDS: 0.9% Saline Lock 10 ML Syringe IV ×4 (01:23→23:14)
[2024-02-01] MEDS: Ondansetron 4 MG/2 ML Vial IV (01:23)
[2024-02-01 01:47] LABS: Vancomycin, Trough Level 11.9 ug/mL (5.0-15.0)
[2024-02-01] MEDS: Acetaminophen 325 MG Tablet 650 MG PO ×3 (01:49→21:34)
--- NOTE | 2024-02-01 02:03 | PCM.RX.CS ---
Consult Antibiotic Management Pharmacy has been consulted to manage selected antibiotic: Vancomycin Type of Intervention Type of Consult: Follow-up Labs Labs: Sodium 138 mmol/L (136-145) 01/31/24 05:22 Potassium 4.9 mmol/L (3.5-5.1) 01/31/24 05:22 Chloride 109 mmol/L (98-107) H 01/31/24 05:22 Carbon Dioxide 28.0 mmol/L (21.0-32.0) 01/31/24 05:22 Anion Gap 1 (5-15) L 01/31/24 05:22 BUN 28 mg/dL (7-18) H 01/31/24 05:22 Creatinine 1.04 mg/dL (0.55-1.02) H 01/31/24 05:22 Est GFR (MDRD) Af Amer 65 mL/min (>60) 01/31/24 05:22 Est GFR (MDRD) Non-Af 54 mL/min (>60) L 01/31/24 05:22 BUN/Creatinine Ratio 26.9 RATIO (10-20) H 01/31/24 05:22 Glucose 105 mg/dL (74-106) 01/31/24 05:22 Vancomycin Trough 11.9 ug/mL (5.0-15.0) 02/01/24 01:10 Microbiology Microbiology: Microbiology 01/31/24 13:39 Wound Abcess - Aerobic & Anaerobic Swabs Gram Stain - Final 01/31/24 13:20 Wound Abcess - Leg, Left Gram Stain - Final Goal Trough Goal Trough: 15-20 mcg/mL Pharmacy Plan for Drug Dosing Pharmacy Plan for Drug Dosing: Pharmacy Service will continue to monitor and adjust dosing as required. TROUGH 11.9 @ 24 HOURS. INCREASE TO 1500MG AND FOLLOW UP TROUGH PRIOR TO 3RD DOSE Follow-Up Labs Follow-Up Labs: Trough: Vancomycin Date/Time Labs Ordered Labs to be done on [date and time ordered]: 02/02 @ 6860
[2024-02-01] MEDS: Vancomycin HCl 1,500 MG in 0.9% Normal Saline (500mL Bag) 500 ML 250 MG IV (02:27)
--- NOTE | 2024-02-01 04:58 | NURSING ---
Patient stated her arm felt much better and was no longer burning at the site of the IV. Will continue to monitor. cold and warm compresses applied to area.
[2024-02-01] MEDS: Levothyroxine 75 MCG Tablet PO (05:20)
[2024-02-01] MEDS: metroNIDAZOLE 500 MG Tablet PO ×3 (05:20→21:35)
[2024-02-01 07:17] LABS: Absolute Lymphocyte Count 0.87 X10^3/uL (0.83-4.51); Absolute Neutrophil Count 4.1 X10^3/uL (2.0-7.7); Basophil# 0.02 X10^3/uL; Basophil% 0.3 % (0-1); Eosinophil# 0.09 X10^3/uL; Eosinophils% 1.5 % (0-5); Hematocrit 40.6 % (37-47); Hemoglobin 12.4 g/dL (12.0-15.0); Lymphocyte # 0.87 X10^3/ul (0.83-4.51); Mean Corp Hgb Conc 30.5 g/dL (32-36); Mean Corpuscular Hgb 30.8 pg (27.0-32.0); Mean Platelet Vol. 9.6 fl (6.2-12.0); Monocyte# 0.71 X10^3/uL; Monocyte% 12.2 % (0-10); NRBC Flagged by Analyzer 0 % (0-5); Neutrophil % 70.7 % (47-70); Platelet Count 235 K/mm3 (150-450); RBC Distribution Width SD 48.2 fl (35.1-43.9); Red Blood Count 4.02 M/mm3 (4.2-5.4); White Blood Count 5.8 K/mm3 (4.4-11.0)
[2024-02-01 07:40] LABS: Anion Gap 5 (5-15); BUN 21 mg/dL (7-18); BUN/Creat Ratio 22.3 RATIO (10-20); Calcium,Total 8.9 mg/dL (8.5-10.1); Chloride 107 mmol/L (98-107); Creatinine, Serum 0.94 mg/dL (0.55-1.02); EST Glomerular Filtration Rate 60 mL/min (>60); Est Glom Filt Rate - Afr Amer 73 mL/min (>60); Estimated Creatinine Clearance 48.96 ml/min; Glucose 118 mg/dL (74-106); Potassium 4.5 mmol/L (3.5-5.1); Sodium Level 139 mmol/L (136-145)
--- NOTE | 2024-02-01 09:08 | WOUNDNOTE ---
Wound VAC dressing intact to the left jimenez. Good seal noted at 125mmHg. VeroFlo infusing with Dakins. plan is for dressing change tomorrow with Dr Enriquez tomorrow. will continue to follow.
[2024-02-01] MEDS: Cholecalciferol (VIT D3) 25 MCG TABLET (1,000 UNITS) 50 MCG PO (10:24)
[2024-02-01] MEDS: Amiodarone 200 MG Tablet PO (10:24)
[2024-02-01] MEDS: DULoxetine Hcl 60 MG Capsule PO (10:24)
[2024-02-01] MEDS: Lactobacillis Acidophilus 1 CAP PO (10:24)
[2024-02-01] MEDS: Ceftriaxone 2 GM in 0.9% Normal Saline (50mL MB+) 50 ML IV (12:03)
--- NOTE | 2024-02-01 12:27 | PCM.PN.HOSP ---
Subjective Subjective Doing well, daughter states that she has been having some hallucinations overnight Objective Data Objective Data Vital Signs: Vital Signs Temp Pulse Resp BP Pulse Ox O2 Del Method O2 Flow Rate 98.3 F 61 14 94/71 94 Nasal Cannula 2 02/01/24 10:22 02/01/24 10:22 02/01/24 10:22 02/01/24 10:22 02/01/24 10:22 02/01/24 10:22 02/01/24 10:22 Oxygen Flow Rate (L/min) 2 Oxygen Delivery Method Nasal Cannula Weight: 189 lb 9.561 oz Body Mass Index (BMI) 32.5 Intake & Output: Intake and Output for Last 24 Hours 01/31/24 02/01/24 02/02/24 03:59 03:59 03:59 Intake Total 895 / 895 250 / 637.5 627.5 / 627.5 Output Total 525 / 525 Balance 370 / 370 250 / 637.5 627.5 / 627.5 Lab / Micro Data 02/01/24 06:49 02/01/24 06:49 Labs: Laboratory Results - last 24 hr 02/01/24 01:10: Vancomycin Trough 11.9 02/01/24 06:49: WBC 5.8, RBC 4.02 L, Hgb 12.4, Hct 40.6, MCV 101.0 H, MCH 30.8, MCHC 30.5 L, RDW Std Deviation 48.2 H, RDW Coeff of Jessica 13.0, Plt Count 235, MPV 9.6, Immature Gran % (Auto) 0.300, Neut % (Auto) 70.7 H, Lymph % (Auto) 15.0 L, [place] % (Auto) 12.2 H, Eos % (Auto) 1.5, Baso % (Auto) 0.3, Absolute Neuts (auto) 4.1, Absolute Lymphs (auto) 0.87, Nucleated RBC % 0, Sodium 139, Potassium 4.5, Chloride 107, Carbon Dioxide 27.0, Anion Gap 5, BUN 21 H, Creatinine 0.94, Estim Creat Clear Calc 48.96, Est GFR (MDRD) Af Amer 73, Est GFR (MDRD) Non-Af 60, BUN/Creatinine Ratio 22.3 H, Glucose 118 H, Calcium 8.9 Micro: Microbiology 01/31/24 13:39 Wound Abcess - Aerobic & Anaerobic Swabs Gram Stain - Final 01/31/24 13:39 Wound Abcess - Aerobic & Anaerobic Swabs Wound Culture - Preliminary No growth-Final to follow 01/31/24 13:20 Wound Abcess - Leg, Left Gram Stain - Final 01/31/24 13:20 Wound Abcess - Leg, Left Wound Culture - Preliminary No growth-Final to follow Physical Exam Narrative General: Alert, confused, Cooperative, No apparent distress HEENT: Atraumatic, PERRLA, EOMI, Normocephalic Oral: Moist Mucosa Neck: Supple, No JVD Lungs: Clear to auscultation, Normal air movement, No rhonchi, No wheeze, No rales Cardiovascular: Regular rate, Regular Rhythm, Normal S1, Normal S2, No murmurs Abdomen: Soft, Non Tender, Non-Distended, No Hepato-splenomegaly Extremities: No edema, Capillary Refill Less than 3 Seconds Skin: Left lower extremity wound VAC in place Musculoskeletal: No Tenderness to Palpation of Joints or Extremities Neurological: No focal neurological deficits, Motor Exam 5/5 strength throughout, Sensory exam intact to light touch and pain Psych/Mental Status: Normal Affect, Appropriate Assessment & Plan Assessment/Plan (1) Cellulitis of left leg: (2) Dog scratch: PLAN: Plan 1. Cellulitis of the left lower extremity failed outpatient treatment secondary to a dog scratch ? Appreciate IDs assistance, continue with antibiotics ? Status post wound VAC placement, cultures so far Gram stains are no organisms seen ? Appreciate plastics assistance ? No leukocytosis and is afebrile 2. Essential HTN/HLD/paroxysmal A-fib ? Will hold Eliquis ? Continue with her home blood pressure medications ? Monitor make adjustments as necessary 3. Hypothyroidism ? Stable ? Continue with Synthroid ? TSH is 6.38, recommend outpatient monitoring 4. Anxiety/depression ? Stable ? Continue with her home medications DVT: Will discontinue Eliquis until cleared by plastic surgery to resume Charges/Coding Visit Charges Inpatient E&M: 09642 Subs Hosp L2
[2024-02-01] MEDS: Ketorolac 15 MG/ML Vial IV ×2 (12:41→23:14)
--- NOTE | 2024-02-01 13:19 | PRO.PCM_ITS ---
Procedure Report Date of Procedure: 02/01/24 Assessment & Plan Assessment/Plan (1) Dog scratch: PLAN: Midline insertion in left basilic: Patient identity was verified with two patient identifiers. Hands were sanitized. The patient was positioned supine with left arm at 90 degrees. The patient's upper arm vasculature was assessed using ultrasound, and the left basilic vein was externally marked. An external measurement was obtained of 10 cm. Cap, mask, and prep gloves were donned. The underdrape was placed under the patient's arm. The site was prepped with chlorhexidine, and tourniquet was loosely applied. Prep gloves were discarded, and hands were sanitized. The sterile kit was opened with additional supplies dropped in. Sterile gown and gloves were donned, and the patient was draped. The sterile kit was assembled with all needle, introducer, connector, and catheter flushed with sterile normal saline. The marked site of insertion was anesthetized with 1% lidocaine. Patient tolerated well. The left basilic vein was then accessed using ultrasound guidance and guidewire was inserted to safety lion. The tourniquet was released. The access needle was removed while securing the guidewire in place. The site was again anesthetized with 1% lidocaine, prior to insertion of introducer sheath and dilator. Patient tolerated well. The catheter was trimmed to a length of 10 cm, and again flushed with sterile normal saline. The catheter was then inserted through the introducer sheath, slowly. There was no resistance on insertion. The introducer sheath was retracted and peeled away, incrementally, while keeping the catheter secured. The catheter was fully inse rted leaving 0 cm external. Blood return was verified and flushed needless connector was attached. The midline was flushed with sterile normal saline in a pulsatile fashion and clamped. Total sterile flushes used for the insertion was two 10 ml syringes, one from the kit. Finally, the insertion site was cleaned with chlorhexidine, and the catheter was secured using a StatLock. The site was covered with a Tegaderm CHG Dressing. Baseline arm circumference was obtained at the insertion site and measured 36 cm. The charge nurse is aware that the midline is ready for use. REF: [id number] LOT: [id number] Procedures Radiology Radiology Access Procedures: MIDL
--- NOTE | 2024-02-01 13:53 | PCM.PROGNOTE ---
Subjective Subjective Patient doing well overall this morning postop day 1. No bleeding in the VAC. Holding suction. Pain controlled Objective Data Objective Data Vital Signs: Vital Signs Temp Pulse Resp BP Pulse Ox O2 Del Method O2 Flow Rate 98.3 F 61 14 94/71 94 Nasal Cannula 2 02/01/24 10:22 02/01/24 10:22 02/01/24 10:22 02/01/24 10:22 02/01/24 10:22 02/01/24 10:22 02/01/24 12:28 Oxygen Flow Rate (L/min) 2 Oxygen Delivery Method Nasal Cannula Weight: 189 lb 9.561 oz Body Mass Index (BMI) 32.5 Intake & Output: Intake and Output for Last 24 Hours 01/30/24 01/31/24 02/01/24 23:59 23:59 23:59 Intake Total 1006.58 / 1006.58 525 / 525 677.5 / 677.5 Output Total 525 / 525 Balance 481.58 / 481.58 525 / 525 677.5 / 677.5 Lab / Micro Data 02/01/24 06:49 02/01/24 06:49 Labs: Laboratory Results - last 24 hr 02/01/24 01:10: Vancomycin Trough 11.9 02/01/24 06:49: WBC 5.8, RBC 4.02 L, Hgb 12.4, Hct 40.6, MCV 101.0 H, MCH 30.8, MCHC 30.5 L, RDW Std Deviation 48.2 H, RDW Coeff of Jessica 13.0, Plt Count 235, MPV 9.6, Immature Gran % (Auto) 0.300, Neut % (Auto) 70.7 H, Lymph % (Auto) 15.0 L, [place] % (Auto) 12.2 H, Eos % (Auto) 1.5, Baso % (Auto) 0.3, Absolute Neuts (auto) 4.1, Absolute Lymphs (auto) 0.87, Nucleated RBC % 0, Sodium 139, Potassium 4.5, Chloride 107, Carbon Dioxide 27.0, Anion Gap 5, BUN 21 H, Creatinine 0.94, Estim Creat Clear Calc 48.96, Est GFR (MDRD) Af Amer 73, Est GFR (MDRD) Non-Af 60, BUN/Creatinine Ratio 22.3 H, Glucose 118 H, Calcium 8.9 Micro: Microbiology 01/29/24 22:48 Blood Culture (Wb) - Left Wrist Blood Culture - Preliminary No growth in 48 hours. 01/31/24 13:39 Wound Abcess - Aerobic & Anaerobic Swabs Gram Stain - Final 01/31/24 13:39 Wound Abcess - Aerobic & Anaerobic Swabs Wound Culture - Preliminary No growth-Final to follow 01/31/24 13:20 Wound Abcess - Leg, Left Gram Stain - Final 01/31/24 13:20 Wound Abcess - Leg, Left Wound Culture - Preliminary No growth-Final to follow Physical Exam Narrative Left lower extremity wound with wound VAC in place holding suction. The contents of the VAC are clear and nonbloody. The foot is warm and well-perfused and the lower extremities are nonswollen and have SCDs on the right calf that are on and activated Const alert and oriented x3 HEENT normocephalic Eyes EOMs intact bilaterally Neck full ROM Assessment & Plan Assessment/Plan (1) Wound of left lower extremity: (2) Abscess of left lower extremity: PLAN: Plan Plan to follow-up wound cultures from the OR Continue Dakin's irrigation through the wound VAC Plan for VAC change tomorrow to a regular VAC and then likely discharge home with a regular VAC I will plan for elective split-thickness skin graft to the wound once it is appropriately clean and the infection has been treated. Patient and her daughter is happy with the plan Charges/Coding Procedures Integumentary [id number]: [id number] Global Visit
[2024-02-01] MEDS: Docusate Sodium 100 MG Capsule PO (21:35)
[2024-02-01] MEDS: Mirtazapine 30 MG Tablet PO (21:35)
[2024-02-01] MEDS: Atorvastatin Calcium 20 MG Tablet PO (21:35)
[2024-02-01] MEDS: APIXABAN 5 MG TABLET PO (21:37)
[2024-02-02] MEDS: 0.9% Saline Lock 10 ML Syringe IV (02:22)
[2024-02-02] MEDS: Vancomycin HCl 1,500 MG in 0.9% Normal Saline (500mL Bag) 500 ML 250 MG IV (02:22)
[2024-02-02 02:37] VITALS: BP 145/60; PULSE 70; RESP 18; TEMP 36.1; O2SAT 97
[2024-02-02 05:30] VITALS: BP 134/63; PULSE 66; RESP 17; TEMP 36.4; O2SAT 96
[2024-02-02] MEDS: Levothyroxine 75 MCG Tablet PO (05:30)
[2024-02-02] MEDS: metroNIDAZOLE 500 MG Tablet PO ×3 (05:30→22:52)
[2024-02-02 06:14] LABS: Absolute Lymphocyte Count 1.43 X10^3/uL (0.83-4.51); Absolute Neutrophil Count 2.4 X10^3/uL (2.0-7.7); Basophil# 0.03 X10^3/uL; Basophil% 0.6 % (0-1); Eosinophil# 0.25 X10^3/uL; Eosinophils% 5.2 % (0-5); Hematocrit 35.9 % (37-47); Hemoglobin 11.1 g/dL (12.0-15.0); Lymphocyte # 1.43 X10^3/ul (0.83-4.51); Mean Corp Hgb Conc 30.9 g/dL (32-36); Mean Corpuscular Hgb 30.8 pg (27.0-32.0); Mean Corpuscular Volume 99.7 fL (81-99); Mean Platelet Vol. 9.8 fl (6.2-12.0); Monocyte% 14.7 % (0-10); NRBC Flagged by Analyzer 0 % (0-5); Neutrophil # 2.35 X10^3/uL (2.7-7.7); Neutrophil % 49.3 % (47-70); Platelet Count 219 K/mm3 (150-450); RBC Distribution Width SD 47.5 fl (35.1-43.9); White Blood Count 4.8 K/mm3 (4.4-11.0)
[2024-02-02 06:31] LABS: Anion Gap 2 (5-15); BUN 26 mg/dL (7-18); BUN/Creat Ratio 24.1 RATIO (10-20); Calcium,Total 8.5 mg/dL (8.5-10.1); Chloride 106 mmol/L (98-107); Creatinine, Serum 1.08 mg/dL (0.55-1.02); EST Glomerular Filtration Rate 52 mL/min (>60); Est Glom Filt Rate - Afr Amer 62 mL/min (>60); Estimated Creatinine Clearance 42.62 ml/min; Glucose 101 mg/dL (74-106); Potassium 4.4 mmol/L (3.5-5.1); Sodium Level 136 mmol/L (136-145)
[2024-02-02 07:51] VITALS: BP 125/51; PULSE 64; RESP 14; TEMP 36.5; O2SAT 97
[2024-02-02] MEDS: Cholecalciferol (VIT D3) 25 MCG TABLET (1,000 UNITS) 50 MCG PO (08:03)
[2024-02-02] MEDS: DULoxetine Hcl 60 MG Capsule PO (08:03)
[2024-02-02] MEDS: Lactobacillis Acidophilus 1 CAP PO (08:04)
[2024-02-02] MEDS: APIXABAN 5 MG TABLET PO ×2 (08:04→22:53)
[2024-02-02] MEDS: Amiodarone 200 MG Tablet PO (08:04)
[2024-02-02] MEDS: Acetaminophen 325 MG Tablet 650 MG PO ×2 (08:09→16:05)
--- NOTE | 2024-02-02 10:08 | PCM.PN.ID ---
Physical Exam Narrative Leg mild soreness, no fever, no n/v/d. Const alert and no apparent distress General Appearance: cooperative Resp normal air movement and clear to auscultation bilaterally Cardio regular rate and regular rhythm GI soft to palpation, non-tender and non-distended Skin Skin Narrative: LLE wrapped ID ID: Route of nutrition/ use of supplements: [] Nutritional Intake: [] IV Site: [] Hsu Catheter: [] Assessment & Plan Assessment/Plan (1) Dog scratch: (2) Cellulitis of left leg: PLAN: Surg consulted, OR 02/01/[address] Enriquez for I&D of abscess. Surg cx pending. Cont vanc/ceftriaxone/flagyl. Will follow
[2024-02-02] MEDS: Ceftriaxone 2 GM in 0.9% Normal Saline (50mL MB+) 50 ML IV (10:50)
--- NOTE | 2024-02-02 11:29 | PN.HOSP_ITS ---
Subjective Subjective Doing well, no issues overnight. No hallucinations. Morphine is been discontinued she is currently on Toradol for pain control which seems to be helping Objective Data Objective Data Vital Signs: Vital Signs Temp Pulse Resp BP Pulse Ox O2 Del Method O2 Flow Rate 97.7 F L 64 14 125/51 H 97 Nasal Cannula 2 02/02/24 07:51 02/02/24 07:51 02/02/24 07:51 02/02/24 07:51 02/02/24 07:51 02/02/24 07:55 02/02/24 07:55 Oxygen Flow Rate (L/min) 2 Oxygen Delivery Method Nasal Cannula Weight: 189 lb 9.561 oz Body Mass Index (BMI) 32.5 Intake & Output: Intake and Output for Last 24 Hours 02/01/24 02/02/24 02/03/24 03:59 03:59 03:59 Intake Total 250 / 637.5 1037.5 / 1037.5 580 / 580 Output Total 0 / 0 Balance 250 / 637.5 1037.5 / 1037.5 580 / 580 Lab / Micro Data 02/02/24 05:38 02/02/24 05:38 Labs: Laboratory Results - last 24 hr 02/02/24 05:38: WBC 4.8, RBC 3.60 L, Hgb 11.1 L, Hct 35.9 L, MCV 99.7 H, MCH 30.8, MCHC 30.9 L, RDW Std Deviation 47.5 H, RDW Coeff of Jessica 13.0, Plt Count 219, MPV 9.8, Immature Gran % (Auto) 0.200, Neut % (Auto) 49.3, Lymph % (Auto) 30.0, [place] % (Auto) 14.7 H, Eos % (Auto) 5.2 H, Baso % (Auto) 0.6, Absolute Neuts (auto) 2.4, Absolute Lymphs (auto) 1.43, Nucleated RBC % 0, Sodium 136, Potassium 4.4, Chloride 106, Carbon Dioxide 29.0, Anion Gap 2 L, BUN 26 H, C reatinine 1.08 H, Estim Creat Clear Calc 42.62, Est GFR (MDRD) Af Amer 62, Est GFR (MDRD) Non-Af 52 L, BUN/Creatinine Ratio 24.1 H, Glucose 101, Calcium 8.5 Micro: Microbiology 01/31/24 13:39 Wound Abcess - Aerobic & Anaerobic Swabs Gram Stain - Final 01/31/24 13:39 Wound Abcess - Aerobic & Anaerobic Swabs Wound Culture - Preliminary No growth-Final to follow 01/31/24 13:39 Wound Abcess - Aerobic & Anaerobic Swabs Anaerobic Culture - Preliminary No growth in 48 hours. 01/31/24 13:20 Wound Abcess - Leg, Left Gram Stain - Final 01/31/24 13:20 Wound Abcess - Leg, Left Wound Culture - Preliminary No growth-Final to follow 01/31/24 13:20 Wound Abcess - Leg, Left Anaerobic Culture - Preliminary No growth in 48 hours. 01/29/24 22:48 Blood Culture (Wb) - Left Wrist Blood Culture - Preliminary No growth in 48 hours. Physical Exam Narrative General: Alert, confused, Cooperative, No apparent distress HEENT: Atraumatic, PERRLA, EOMI, Normocephalic Oral: Moist Mucosa Neck: Supple, No JVD Lungs: Clear to auscultation, Normal air movement, No rhonchi, No wheeze, No rales Cardiovascular: Regular rate, Regular Rhythm, Normal S1, Normal S2, No murmurs Abdomen: Soft, Non Tender, Non-Distended, No Hepato-splenomegaly Extremities: No edema, Capillary Refill Less than 3 Seconds Skin: Left lower extremity wound VAC in place Musculoskeletal: No Tenderness to Palpation of Joints or Extremities Neurological: No focal neurological deficits, Motor Exam 5/5 strength throughout, Sensory exam intact to light touch and pain Psych/Mental Status: Normal Affect, Appropriate Assessment & Plan Assessment/Plan (1) Cellulitis of left leg: (2) Dog scratch: PLAN: Plan 1. Cellulitis of the left lower extremity failed outpatient treatment secondary to a dog scratch ? Appreciate IDs assistance, continue with antibiotics ? Status post wound VAC placement, cultures so far are negative but not finalized ? Appreciate plastics assistance ? No leukocytosis and is afebrile ? Plan for TCU on discharge 2. Essential HTN/HLD/paroxysmal A-fib ?Can resume Eliquis ? Continue with her home blood pressure medications ? Monitor make adjustments as necessary 3. Hypothyroidism ? Stable ? Continue with Synthroid ? TSH is 6.38, recommend outpatient monitoring 4. Anxiety/depression ? Stable ? Continue with her home medications DVT: Eliquis Charges/Coding Visit Charges Inpatient E&M: 26048 Subs Hosp L2
[2024-02-02] MEDS: Ketorolac 15 MG/ML Vial IV (12:29)
--- NOTE | 2024-02-02 13:49 | CASEMGMT ---
This SW and MOISES Ornelas met with patient. Introduced selves and role at [facility]. SW let patient know that TCU can take her when she is ready. SW did let patient know she will not be able to get her Simponi Aria injections while in TCU. Patient verbalized agreement and understanding. Marlyn Oliva [employer]
--- NOTE | 2024-02-02 14:44 | WOUNDNOTE ---
wound photo: left lower leg
[2024-02-02 16:04] VITALS: BP 134/59; PULSE 66; RESP 15; TEMP 36.6; O2SAT 91
--- NOTE | 2024-02-02 16:16 | PN.SURG_ITS ---
<Statement entered by Pato Enriquez MD - 02/02/24 17:05> I have personally performed a face to face assessment of the patient and have reviewed the FRANCISCA Note. Subjective Subjective Postop day #2. Patient is doing well. She is tolerating the wound VAC well. She states her pain is well-controlled. Objective Data Objective Data Vital Signs: Vital Signs Temp Pulse Resp BP Pulse Ox O2 Del Method O2 Flow Rate 97.9 F 66 15 134/59 H 91 Room Air 2 02/02/24 16:04 02/02/24 16:04 02/02/24 16:04 02/02/24 16:04 02/02/24 16:04 02/02/24 16:04 02/02/24 07:55 Oxygen Flow Rate (L/min) 2 Oxygen Delivery Method Room Air Weight: 189 lb 9.561 oz Body Mass Index (BMI) 32.5 Intake & Output: Intake and Output for Last 24 Hours 01/31/24 02/01/24 02/02/24 23:59 23:59 23:59 Intake Total 525 / 525 1037.5 / 1037.5 1205 / 1205 Output Total 0 / 0 Balance 525 / 525 1037.5 / 1037.5 1205 / 1205 Lab / Micro Data 02/02/24 05:38 02/02/24 05:38 Labs: Laboratory Results - last 24 hr 02/02/24 05:38: WBC 4.8, RBC 3.60 L, Hgb 11.1 L, Hct 35.9 L, MCV 99.7 H, MCH 30.8, MCHC 30.9 L, RDW Std Deviation 47.5 H, RDW Coeff of Jessica 13.0, Plt Count 219, MPV 9.8, Immature Gran % (Auto) 0.200, Neut % (Auto) 49.3, Lymph % (Auto) 30.0, [place] % (Auto) 14.7 H, Eos % (Auto) 5.2 H, Baso % (Auto) 0.6, Absolute Neuts (auto) 2.4, Absolute Lymphs (auto) 1.43, Nucleated RBC % 0, Sodium 136, Potassium 4.4, Chloride 106, Carbon Dioxide 29.0, Anion Gap 2 L, BUN 26 H, C reatinine 1.08 H, Estim Creat Clear Calc 42.62, Est GFR (MDRD) Af Amer 62, Est GFR (MDRD) Non-Af 52 L, BUN/Creatinine Ratio 24.1 H, Glucose 101, Calcium 8.5 Micro: Microbiology 01/31/24 13:39 Wound Abcess - Aerobic & Anaerobic Swabs Gram Stain - Final 01/31/24 13:39 Wound Abcess - Aerobic & Anaerobic Swabs Wound Culture - Preliminary No growth-Final to follow 01/31/24 13:39 Wound Abcess - Aerobic & Anaerobic Swabs Anaerobic Culture - Preliminary No growth in 48 hours. 01/31/24 13:20 Wound Abcess - Leg, Left Gram Stain - Final 01/31/24 13:20 Wound Abcess - Leg, Left Wound Culture - Preliminary No growth-Final to follow 01/31/24 13:20 Wound Abcess - Leg, Left Anaerobic Culture - Preliminary No growth in 48 hours. 01/29/24 22:48 Blood Culture (Wb) - Left Wrist Blood Culture - Preliminary No growth in 48 hours. Physical Exam Narrative Left lower irrigating wound VAC discontinued. Left leg wound is a nice beefy pink. There was some oozing from a couple spots of the wound where pressure was held. After pressure held these 2 areas continue to ooze so silver nitrate was used in those 2 areas. Wound VAC at 125 mmHg placed without difficulty. Patient tolerated everything well. Const alert HEENT normocephalic Eyes General Eye: normal appearance of both eyes Resp normal respiratory effort Effort and Inspection: able to speak in complete sentences Cardio regular rate Back/Spine normal ROM Extremity normal capillary refill Neuro oriented x3 Assessment & Plan Assessment/Plan (1) Wound of left lower extremity: (2) Abscess of left lower extremity: PLAN: Plan Irrigating wound VAC discontinued today. Wound VAC at 125 mmHg placed. This will be changed 3 times per week. The plan is for her to go home with the wound vac, she will need home health to help assist with the wound VAC dressing changes. She will follow-up with either Dr. Enriquez or myself at the wound healing center. Operative cultures are pending. Infectious disease is consulted. She is currently on vanc, ceftriaxone and flagyl Discussed plan of care with Dr. Enriquez. Charges/Coding Procedures Integumentary 111xxx-113xx: [id number] Global Visit
[2024-02-02] MEDS: oxyCODONE 5 MG Tablet PO ×2 (16:41→22:53)
[2024-02-02 18:38] VITALS: BP 139/63; PULSE 72; RESP 15; TEMP 36.6; O2SAT 94
[2024-02-02] MEDS: Mirtazapine 30 MG Tablet PO (22:52)
[2024-02-02] MEDS: Docusate Sodium 100 MG Capsule PO (22:53)
[2024-02-02] MEDS: Atorvastatin Calcium 20 MG Tablet PO (22:53)
[2024-02-03 02:17] LABS: Vancomycin, Trough Level 16.4 ug/mL (5.0-15.0)
--- NOTE | 2024-02-03 02:25 | PCM.RX.CS ---
Consult Antibiotic Management Pharmacy has been consulted to manage selected antibiotic: Vancomycin Type of Intervention Type of Consult: Follow-up Suspected Infection Suspected Infection: Skin/Soft tissue Labs Labs: Sodium 136 mmol/L (136-145) 02/02/24 05:38 Potassium 4.4 mmol/L (3.5-5.1) 02/02/24 05:38 Chloride 106 mmol/L (98-107) 02/02/24 05:38 Carbon Dioxide 29.0 mmol/L (21.0-32.0) 02/02/24 05:38 Anion Gap 2 (5-15) L 02/02/24 05:38 BUN 26 mg/dL (7-18) H 02/02/24 05:38 Creatinine 1.08 mg/dL (0.55-1.02) H 02/02/24 05:38 Est GFR (MDRD) Af Amer 62 mL/min (>60) 02/02/24 05:38 Est GFR (MDRD) Non-Af 52 mL/min (>60) L 02/02/24 05:38 BUN/Creatinine Ratio 24.1 RATIO (10-20) H 02/02/24 05:38 Glucose 101 mg/dL (74-106) 02/02/24 05:38 Vancomycin Trough 16.4 ug/mL (5.0-15.0) H 02/03/24 01:45 Microbiology Microbiology: Microbiology 01/31/24 13:39 Wound Abcess - Aerobic & Anaerobic Swabs Gram Stain - Final 01/31/24 13:39 Wound Abcess - Aerobic & Anaerobic Swabs Wound Culture - Preliminary No growth-Final to follow 01/31/24 13:39 Wound Abcess - Aerobic & Anaerobic Swabs Anaerobic Culture - Preliminary No growth in 48 hours. 01/31/24 13:20 Wound Abcess - Leg, Left Gram Stain - Final 01/31/24 13:20 Wound Abcess - Leg, Left Wound Culture - Preliminary No growth-Final to follow 01/31/24 13:20 Wound Abcess - Leg, Left Anaerobic Culture - Preliminary No growth in 48 hours. 01/29/24 22:48 Blood Culture (Wb) - Left Wrist Blood Culture - Preliminary No growth in 48 hours. Dosing Weight Weight used for dosin kg Estimated Creatinine Clearance Estimated Creatinine Clearance: 43 Goal Trough Goal Trough: 15-20 mcg/mL Pharmacy Plan for Drug Dosing Pharmacy Plan for Drug Dosing: Vancomycin trough level of 16.4, drawn 23.5hrs post-dose, was within the target range of 15-20. Will continue dosing at 1500mg q24h, and will draw another vanco level in two days. Pharmacy Service will continue to monitor and adjust dosing as required. Follow-Up Labs Follow-Up Labs: Trough: Vancomycin Date/Time Labs Ordered Labs to be done on [date and time ordered]: 02/05/24 @0135
[2024-02-03] MEDS: 0.9% Saline Lock 10 ML Syringe IV ×2 (02:44→06:37)
[2024-02-03] MEDS: Vancomycin HCl 1,500 MG in 0.9% Normal Saline (500mL Bag) 500 ML 250 MG IV (02:44)
[2024-02-03 03:00] VITALS: BP 137/65; PULSE 65; PULSE 95; RESP 16; TEMP 36.6; O2SAT 91
[2024-02-03] MEDS: metroNIDAZOLE 500 MG Tablet PO ×2 (06:36→15:58)
[2024-02-03] MEDS: Levothyroxine 75 MCG Tablet PO (06:36)
--- NOTE | 2024-02-03 07:09 | PCM.PN.SRG ---
Subjective Subjective Doing well this morning. Pain controlled. Planning for transfer to the transitional care unit under Dr. Jaimes. Objective Data Objective Data Vital Signs: Vital Signs Temp Pulse Resp BP Pulse Ox O2 Del Method O2 Flow Rate 98 F 65 16 137/65 H 91 Room Air 2 02/03/24 03:00 02/03/24 03:00 02/03/24 03:00 02/03/24 03:00 02/03/24 03:00 02/03/24 03:00 02/02/24 07:55 Oxygen Flow Rate (L/min) 2 Oxygen Delivery Method Room Air Weight: 189 lb 9.561 oz Body Mass Index (BMI) 32.5 Intake & Output: Intake and Output for Last 24 Hours 02/01/24 02/02/24 02/03/24 23:59 23:59 23:59 Intake Total 1037.5 / 1037.5 1630 / 1630 650 / 650 Output Total 0 / 0 0 / 0 Balance 1037.5 / 1037.5 1630 / 1630 650 / 650 Lab / Micro Data 02/02/24 05:38 02/02/24 05:38 Labs: Laboratory Results - last 24 hr 02/03/24 01:45: Vancomycin Trough 16.4 H Micro: Microbiology 01/31/24 13:39 Wound Abcess - Aerobic & Anaerobic Swabs Gram Stain - Final 01/31/24 13:39 Wound Abcess - Aerobic & Anaerobic Swabs Wound Culture - Preliminary No growth-Final to follow 01/31/24 13:39 Wound Abcess - Aerobic & Anaerobic Swabs Anaerobic Culture - Preliminary No growth in 48 hours. 01/31/24 13:20 Wound Abcess - Leg, Left Gram Stain - Final 01/31/24 13:20 Wound Abcess - Leg, Left Wound Culture - Preliminary No growth-Final to follow 01/31/24 13:20 Wound Abcess - Leg, Left Anaerobic Culture - Preliminary No growth in 48 hours. 01/29/24 22:48 Blood Culture (Wb) - Left Wrist Blood Culture - Preliminary No growth in 48 hours. Physical Exam Narrative LLE with VAC in place. No signs of surrounding infection/cellulitis at this point. VAC canister empty. Const alert and oriented x3 Resp normal respiratory effort Cardio regular rate Extremity Extremity Narrative: No real calf swelling bilaterally, even on left around the wound. Much improved cellulitis. Assessment & Plan Assessment/Plan (1) Wound of left lower extremity: PLAN: VAC changes three times per week. I talked to the patient extensively about skin grafting, including the risks, benefits, and alternatives (wound care). She would like to proceed with the skin graft option. Planning to schedule elective reconstruction with skin graft from her left thigh in the next week or so. Agree with transition to TCU for rehab (2) Abscess of left lower extremity: PLAN: Continue to follow up on OR cultures. Charges/Coding Procedures Integumentary [id number]: [id number] Global Visit
--- NOTE | 2024-02-03 10:05 | PCM.PN.ID ---
Physical Exam Narrative Some upper lip soreness and swelling. No fever, no difficulty swallowing, no tongue swelling, no rash. Leg feeling better. Const alert and no apparent distress General Appearance: cooperative Resp normal air movement and clear to auscultation bilaterally Cardio regular rate and regular rhythm GI soft to palpation, non-tender and non-distended Skin Skin Narrative: wound vac in place ID ID: Route of nutrition/ use of supplements: [] Nutritional Intake: [] IV Site: [] Hsu Catheter: [] Assessment & Plan Assessment/Plan (1) Dog scratch: (2) Cellulitis of left leg: PLAN: Surg consulted, OR 02/01/[address] Enriquez for I&D of abscess. Surg cx ngtd. On vanc/ceftriaxone/flagyl. Now some swelling of upper lip, will change to po doxy/cipro/flagyl for 6 more days. Will follow
[2024-02-03 10:28] VITALS: BP 148/70; PULSE 66; RESP 16; TEMP 36.2; O2SAT 92
[2024-02-03] MEDS: Amiodarone 200 MG Tablet PO (10:36)
[2024-02-03] MEDS: APIXABAN 5 MG TABLET PO (10:36)
[2024-02-03] MEDS: DULoxetine Hcl 60 MG Capsule PO (10:36)
[2024-02-03] MEDS: Lactobacillis Acidophilus 1 CAP PO (10:36)
[2024-02-03] MEDS: Cholecalciferol (VIT D3) 25 MCG TABLET (1,000 UNITS) 50 MCG PO (10:36)
--- NOTE | 2024-02-03 11:38 | TREXTCAR_ITS ---
Diet Diet Order/Speech Therapy: 01/31/24 16:27 Diet: Cardiac - Heart Healthy Routine Orders/Code Status Routine Lab Work: CBC and BMP Wound(s) Left calf: Wound Type: Bite Left anterior jimenez: Wound Type: Open Surgical Wound Dressing Change: KCI wound VAC Therapies Physical Therapy: Eval and Treat Occupational Therapy: Eval and Treat Problem/Diagnosis (1) Dog scratch: Status: Acute Code(s): W54.8XXA - Other contact with dog, initial encounter (2) Cellulitis of left leg: Status: Acute Code(s): L03.116 - Cellulitis of left lower limb Plan 1. Cellulitis of the left lower extremity failed outpatient treatment secondary to a dog scratch ? Appreciate IDs assistance, continue with antibiotics ? Status post wound VAC placement, cultures so far are negative but not finalized ? Appreciate plastics assistance ? No leukocytosis and is afebrile ? Plan for TCU on discharge 2. Essential HTN/HLD/paroxysmal A-fib ?Can resume Eliquis ? Continue with her home blood pressure medications ? Monitor make adjustments as necessary 3. Hypothyroidism ? Stable ? Continue with Synthroid ? TSH is 6.38, recommend outpatient monitoring 4. Anxiety/depression ? Stable ? Continue with her home medications DVT: Eliquis Allergies/Procedures Done in Hospital Allergies cephalexin monohydrate (From Keflex) Allergy (Verified 01/29/24 20:15) Hives ethchlorvynol (From Placidyl) Allergy (Verified 01/29/24 20:15) Unknown Penicillins (PCN) Allergy (Verified 01/29/24 20:15) Unknown Sulfa (Sulfonamide Antibiotics) Allergy (Verified 01/29/24 20:15) Rash sulfamethoxazole (From Septra) Allergy (Verified 01/29/24 20:15) Unknown trimethoprim (From Septra) Allergy (Verified 01/29/24 20:15) Unknown Procedures: None Type of Care/Length of Stay Estimated LOS: Convalescent Care Less Than 30 days Type of Care Needed: Skilled Rehab Potential: Good Prognosis: Good Additional Orders/Day of Discharge Day of Discharge: 02/03/24 Discharge Plan Admission Admit Date/Time: 01/30/24 00:55 Attending Provider: Nelson Urban Primary Care Provider: Mauricio Barney Consulting Providers: Pato Echevarria; Samuel Christensen; Pato Enriquez Discharge Orders/Prescriptions Prescriptions: New metronidazole 500 mg Tablet 500 mg PO TID 6 Days Qty: 0 0RF ciprofloxacin HCl 500 mg Tablet 500 mg PO BID 6 Days Qty: 0 0RF doxycycline monohydrate 100 mg Capsule 100 mg PO BID 6 Days Qty: 0 0RF Continued (DME) handicap placcard See Rx Instructions .Route .MEDSUPPLY Qty: 1 0RF Rx Instructions: dx: severe OA expires: 5 years levothyroxine 75 mcg tablet 75 mcg PO DAILY Eliquis 5 mg Tablet 5 mg PO BID acetaminophen 500 mg Tablet 1,000 mg PO Q6H PRN PRN (Reason: Pain Score 1-5) Qty: 0 0RF cholecalciferol (vitamin D3) 25 mcg (1,000 unit) Tablet 50 mcg PO DAILY Qty: 0 0RF amiodarone 200 mg tablet 200 mg PO DAILY duloxetine 60 mg capsule,delayed release(DR/EC) 60 mg PO DAILY L.acidoph,saliva-B.bif-S.therm [Acidophilus Probiotic Blend] 175 mg capsule 1 cap PO DAILY docusate sodium [Colace] 100 mg capsule 100 mg PO QHS AZO D-Mannose 500 mg capsule 1,000 mg PO BID mirtazapine 15 mg Tablet 30 mg PO QHS Simponi ARIA 12.5 mg/mL solution See Rx Instructions IV .COMPLEX Patient Comments: INFUSE 2MG/KG IV EVERY 8 WEEKS Rx Instructions: intravenously every 8 weeks; atorvastatin 20 mg tablet 20 mg PO QHS Qty: 90 3RF Referrals / Follow Up: Mauricio Barney MD [Primary Care Provider] - Disposition Disposition (needs filled in before D/C Order can be placed): Group Home Facility
--- NOTE | 2024-02-03 14:19 | CASEMGMT ---
Patient is ready for discharge to [facility]. Plan: d/c to [facility] under skilled level of care. Marlyn AQUINO
--- NOTE | 2024-02-03 15:20 | DS.PCM_ITS ---
Providers Date of Admission: 01/30/24 Primary Care Physician: Dr. 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 Routine Comment: Reason for Consult:: left lower leg Reason For Visit: LEFT LOWER EXTREMITY CELLULITIS FAILED OUTPATIENT Diagnosis Discharge Diagnosis (1) Dog scratch: Status: Acute Code(s): W54.8XXA - Other contact with dog, initial encounter (2) Cellulitis of left leg: Status: Acute Code(s): L03.116 - Cellulitis of left lower limb Medications at Discharge Home Medications handicap placcard #1 ea 05/07/20 levothyroxine 75 mcg tablet 75 mcg PO DAILY thyroid 02/05/21 atorvastatin 20 mg tablet 20 mg PO QHS cholesterol #90 tabs 09/25/21 apixaban 5 mg tablet (Eliquis) 5 mg PO BID blood thinner 04/27/22 acetaminophen 500 mg tablet 1,000 mg (2 x 500 mg) PO Q6H PRN PRN Pain Score 1-5 #0 tabs 02/21/23 cholecalciferol (vitamin D3) 25 mcg (1,000 unit) tablet 50 mcg (2 x 25 mcg (1,000 unit)) PO DAILY suppliment #0 tabs 02/21/23 L.acidophil,salivari-Bifido bifidum-Strep thermoph 175 mg capsule (Acidophilus Probiotic Blend) 1 cap PO DAILY gut health 01/29/24 amiodarone 200 mg tablet 200 mg PO DAILY 01/29/24 d-mannose 500 mg capsule (AZO D-Mannose) 1,000 mg PO BID uti 01/29/24 docusate sodium 100 mg capsule (Colace) 100 mg PO QHS stool softener 01/29/24 duloxetine 60 mg capsule,delayed release 60 mg PO DAILY mood 01/29/24 mirtazapine 15 mg tablet 30 mg PO QHS 01/29/24 golimumab 12.5 mg/mL intravenous solution (Simponi ARIA) See Rx Instructions IV .COMPLEX arthritis 01/31/24 ciprofloxacin HCl 500 mg tablet 500 mg PO BID 6 days #0 tabs 02/03/24 doxycycline monohydrate 100 mg capsule 100 mg PO BID 6 days #0 caps 02/03/24 metronidazole 500 mg tablet 500 mg PO TID 6 days #0 tabs 02/03/24 Hospital Course Operations - (1) excision of left lower extremity wound (6 x 9 cm), CPT: 08578 2) Placement of negative pressure wound therapy irrigating wound VAC, not disposable, CPT 38950) Procedures None Summary of Care Provided Minutes Spent on Discharge: 35 Hospital Course: Per HPI: BRADLEY GILMORE, is a 83 F with a past medical history of essential hypertension, hyperlipidemia, hypothyroidism, obesity; with BMI of 32.9 this admission, PAF; on amiodarone and Eliquis, history of arrhythmia; s/p PPM, history of RLE DVT, 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 difficile colitis, history of colectomy, history of cholecystectomy, history of total hysterectomy, depression, osteoporosis and OA who presents to [facility] ER complaining of an increasing left lower extremity wound with redness and pain. Ms. Denson reports her symptoms began after her friend's dog scratched her Left leg 4 days ago after which she was seen at the [facility] emergency department where she had sutures placed and was started on oral doxycycline. Then on January 29, 2024 she noticed increased redness, swelling and pain from the area along with chills so she decided to come in for further evaluation and treatment after the skin flap turned black. The patient is worried she will need another skin graft and wound VAC similar to her per previous Left lower extremity infection attributed to MRSA. In the ER she was diagnosed with cellulitis of the Left lower extremity that failed outpatient treatment with oral doxycycline and she was then started on IV Levaquin and IV vancomycin (given her allergy profile) and she was then admitted to the general medical floor for ongoing care for stay that is expected to extend beyond 2 midnights. Hospital course: 1. Cellulitis of the left lower extremity failed outpatient treatment secondary to a dog scratch status post debridement and wound VAC placement on 01/31/2024?8 3-year-old female presented to the hospital with left lower extremity wound secondary to MRSA that initially led to osteomyelitis that required a wound VAC and skin graft. 4 days prior to admission a friend of hers dog scratched her skin graft leading to what appears to be a hematoma with possible infection. She was taken to the OR and had a new wound VAC placed and had the wound washed out. Cultures so far have been negative. The wound VAC was changed and plastic surgery felt that she was stable for discharge to the custodial. Initially had a midline placed to facilitate antibiotics via IV route however infectious disease today recommended 6 more days of Cipro 500 mg p.o. twice daily, Flagyl 500 mg p.o. 3 times daily and doxycycline 100 mg p.o. twice daily. I discussed with her the plan for discharge today she expressed understanding there is benefits of going to the custodial and would like to go today. 2. Essential hypertension, hyperlipidemia, paroxysmal A-fib, hypothyroidism, anxiety, depression are all chronic medical conditions which complicate her care. Her home medications were continued where appropriate. Of note her TSH was 6.38, would recommend rechecking in a couple of weeks once the acute illness has resolved to see if any adjustments need be made in her Synthroid. She is able to resume Eliquis per recommendations of plastic surgery. Physical Exam Narrative General: Alert, confused, Cooperative, No apparent distress HEENT: Atraumatic, PERRLA, EOMI, Normocephalic Oral: Moist Mucosa Neck: Supple, No JVD Lungs: Clear to auscultation, Normal air movement, No rhonchi, No wheeze, No rales Cardiovascular: Regular rate, Regular Rhythm, Normal S1, Normal S2, No murmurs Abdomen: Soft, Non Tender, Non-Distended, No Hepato-splenomegaly Extremities: No edema, Capillary Refill Less than 3 Seconds Skin: Left lower extremity wound VAC in place Musculoskeletal: No Tenderness to Palpation of Joints or Extremities Neurological: No focal neurological deficits, Motor Exam 5/5 strength throughout, Sensory exam intact to light touch and pain Psych/Mental Status: Normal Affect, Appropriate Weight / BMI Weight Weight: 189 lb 9.561 oz Body Mass Index (BMI) 32.5 ABG / Lab / Microbiology Data 02/02/24 05:38 02/02/24 05:38 Laboratory: Laboratory Results - last 24 hr 02/03/24 01:45: Vancomycin Trough 16.4 H Microbiology: Microbiology 01/31/24 13:20 Wound Abcess - Leg, Left Gram Stain - Final 01/31/24 13:20 Wound Abcess - Leg, Left Wound Culture - Final No growth aerobically. 01/31/24 13:20 Wound Abcess - Leg, Left Anaerobic Culture - Preliminary No growth in 48 hours. 01/31/24 13:39 Wound Abcess - Aerobic & Anaerobic Swabs Gram Stain - Final 01/31/24 13:39 Wound Abcess - Aerobic & Anaerobic Swabs Wound Culture - Preliminary No growth-Final to follow 01/31/24 13:39 Wound Abcess - Aerobic & Anaerobic Swabs Anaerobic Culture - Preliminary No growth in 48 hours. 01/29/24 22:48 Blood Culture (Wb) - Left Wrist Blood Culture - Preliminary No growth in 48 hours. Meaningful Use Info Meaningful Use Meaningful Use Diagnoses (Choose all that apply): None applicable Ischemic Stroke Statin Dosing Therapy Reference: STATIN DOSE THERAPY REFERENCE: * Patients > 75 years receive moderate or high dose statin therapy. * Patients 75 years or YOUNGER should receive HIGH intensity statin dose unless contraindicated. You will be required to document reason for non-treatment if statin daily dose does not meet guidelines. HIGH DOSE STATIN THERAPY DAILY Atorvastatin > than or = to 40 mg Rosuvastatin > than or = to 20 mg Amlodipine + Atorvastatin > than or = to 2.5/40 mg Ezetimibe + Simvastatin 10/80 mg Simvastatin 80mg Discharge Plan Admission Admit Date/Time: 01/30/24 00:55 Attending Provider: Nelson Urban Primary Care Provider: Mauricio Barney Consulting Providers: Pato Echevarria; Samuel Christensen; Pato Enriquez Discharge Orders/Prescriptions Prescriptions: New metronidazole 500 mg Tablet 500 mg PO TID 6 Days Qty: 0 0RF ciprofloxacin HCl 500 mg Tablet 500 mg PO BID 6 Days Qty: 0 0RF doxycycline monohydrate 100 mg Capsule 100 mg PO BID 6 Days Qty: 0 0RF Continued (DME) handicap placcard See Rx Instructions .Route .MEDSUPPLY Qty: 1 0RF Rx Instructions: dx: severe OA expires: 5 years levothyroxine 75 mcg tablet 75 mcg PO DAILY Eliquis 5 mg Tablet 5 mg PO BID acetaminophen 500 mg Tablet 1,000 mg PO Q6H PRN PRN (Reason: Pain Score 1-5) Qty: 0 0RF cholecalciferol (vitamin D3) 25 mcg (1,000 unit) Tablet 50 mcg PO DAILY Qty: 0 0RF amiodarone 200 mg tablet 200 mg PO DAILY duloxetine 60 mg capsule,delayed release(DR/EC) 60 mg PO DAILY L.acidoph,saliva-B.bif-S.therm [Acidophilus Probiotic Blend] 175 mg capsule 1 cap PO DAILY docusate sodium [Colace] 100 mg capsule 100 mg PO QHS AZO D-Mannose 500 mg capsule 1,000 mg PO BID mirtazapine 15 mg Tablet 30 mg PO QHS Simponi ARIA 12.5 mg/mL solution See Rx Instructions IV .COMPLEX Patient Comments: INFUSE 2MG/KG IV EVERY 8 WEEKS Rx Instructions: intravenously every 8 weeks; atorvastatin 20 mg tablet 20 mg PO QHS Qty: 90 3RF Referrals / Follow Up: Mauricio Barney MD [Primary Care Provider] - Disposition Disposition (needs filled in before D/C Order can be placed): Shelter Facility Charges/Coding Visit Charges Inpatient E&M: 22938 Disch Hosp >30min
[2024-02-03 15:53] VITALS: BP 131/59; PULSE 76; RESP 16; TEMP 36.4; O2SAT 96
--- NOTE | 2024-02-03 17:54 | NURSING ---
Report called to JAYDEN Campos, on TCU at this time.
== END 2024-02-03 19:35 | DRG 572 ==
LOC: ED 01-30 00:19 → PCU 01-30 02:28
PROVIDERS: Anesthesiology; Surgery Plastic and Reconstructive Surgery; Admitting Provider Internal Medicine; Emergency Provider Emergency Medicine; PCP Family Medicine; Referring Provider Internal Medicine; Visit Provider Family Medicine
PROC: 0JBP0ZZ Excision of Left Lower Leg Subcutaneous Tissue and Fascia, Open Approach (ICD-10-PCS; principal; 2024-01-31 11:20)
DX: L03.116 Cellulitis of left lower limb (principal); E03.9 Hypothyroidism, unspecified; M06.9 Rheumatoid arthritis, unspecified; I10 Essential (primary) hypertension; F32.A Depression, unspecified; E66.9 Obesity, unspecified; I48.0 Paroxysmal atrial fibrillation; E78.5 Hyperlipidemia, unspecified; F41.9 Anxiety disorder, unspecified; S80.812A Abrasion, left lower leg, initial encounter; L02.416 Cutaneous abscess of left lower limb; W54.8XXA Other contact with dog, initial encounter; Z68.32 Body mass index [BMI] 32.0-32.9, adult; Z79.01 Long term (current) use of anticoagulants; Z79.2 Long term (current) use of antibiotics; Z79.890 Hormone replacement therapy; Z79.899 Other long term (current) drug therapy; Z86.718 Personal history of other venous thrombosis and embolism
CPT/HCPCS: 36415; 73590; 80048; 80202; 83605; 84443; 85025; 85610; 85730; 87015; 87040; 87070; 87075; 87102; 87116; 87176; 87205; 87206; 93005; 97110; 97162; 97166; 97530; 99285; J7040; J7050; A4216; J0696; J2405

== ENCOUNTER 2024-02-03 19:45 | Inpatient (IN) | payer MEDICARE, SELFPAY ==
[2024-02-03 20:00] VITALS: BP 129/63; PULSE 78; RESP 17; TEMP 36.8; O2SAT 93
--- NOTE | 2024-02-03 20:06 | HP.PCM_ITS ---
HPI - General General Date of Admission: 02/03/24 Date of Service: 02/03/24 Chief Complaint: Here for rehabilitation, strengthening. HPI Narrative 01/29/2024 BRADLEY GILMORE, is a 83 Female who presents to [facility] ED with left leg wound. Left leg wound 2/2 dog scratch, sutured, started on Doxycycline at [facility] ED. Increased redness, increased swelling, increased pain. History MRSA, osteomyelitis, wound VAC left lower extremity many years ago. Blood cultures sent. Levaquin, Vancomycin iv given, X-ray negative for osteomyelitis. 01/30/2024 Admit [facility]. Vancomycin, Aztreonam iv for left lower extremity cellulitis. Consult Plastic surgery Dr. Enriquez, Consult Infectious Disease Dr. Echevarria. 01/30/2024 Dr. Enriquez recommended surgical debridement with wound VAC placement. 01/30/2024 Dr. Echevarria recommended continuing Vancomycin, Aztreonam. MRI showed abscess. 01/31/2024 Doing well. Continue iv antibiotics for left lower extremity cellulitis. 01/31/2024 Dr. Enriquez performed excision of left lower extremity wound, placement of negative pressure wound VAC. 02/01/2024 Doing well, Hallucinations overnight. Gram stain negative, WBC normal, no fever. 02/01/2024 Midline left upper extremity. 02/01/2024 Dr. Enriquez planning sking graft once infection resolved. 02/01/2024 Ceftriaxone iv, Vancomycin iv, Flagyl po for left lower extremity cellulitis. 02/02/2024 No hallucinations overnight, Morphine discontinued. Toradol for pain. Cultures negative to date, wound VAC left lower extremity. Woudn VAC changed 3x/week. 02/03/2024 Admit to TCU with debility, here for rehabilitation, strengthening, wound care, prior to discharge home. [facility] Medical History Pacemaker Open wound of right buttock with complication Traumatic hematoma of buttock Hematoma of right lower extremity Depression Vitamin D deficiency Gastrointestinal bleed Rheumatoid arthritis Hypothyroidism Compression fracture of L3 vertebra Acute blood loss anemia GI bleed Peptic ulcer disease 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 Immunosuppressed status senior living current use of anticoagulant DVT (deep venous thrombosis) Cellulitis of left lower extremity Hyperlipidemia Paroxysmal atrial fibrillation History of Clostridium difficile Home Medications ?Medication ?Instructions ?Recorded ?Last Taken ?Type handicap placcard #1 ea 05/07/20 Unknown Rx levothyroxine 75 mcg tablet 75 mcg PO DAILY thyroid 02/05/21 Unknown History atorvastatin 20 mg tablet 20 mg PO QHS cholesterol #90 tabs 09/25/21 02/02/24 Rx apixaban 5 mg tablet (Eliquis) 5 mg PO BID blood thinner 04/27/22 Unknown History acetaminophen 500 mg tablet 1,000 mg (2 x 500 mg) PO Q6H PRN 02/21/23 02/02/24 Rx PRN Pain Score 1-5 #0 tabs cholecalciferol (vitamin D3) 25 50 mcg (2 x 25 mcg (1,000 unit)) 02/21/23 Unknown Rx mcg (1,000 unit) tablet PO DAILY suppliment #0 tabs L.acidophil,salivari-Bifido 1 cap PO DAILY gut health 01/29/24 02/03/24 History bifidum-Strep thermoph 175 mg capsule (Acidophilus Probiotic Blend) amiodarone 200 mg tablet 200 mg PO DAILY heart 01/29/24 02/03/24 History d-mannose 500 mg capsule (AZO 1,000 mg PO BID uti 01/29/24 Unknown History D-Mannose) docusate sodium 100 mg capsule 100 mg PO QHS stool softener 01/29/24 02/02/24 History (Colace) duloxetine 60 mg capsule,delayed 60 mg PO DAILY mood 01/29/24 02/03/24 History release mirtazapine 15 mg tablet 30 mg PO QHS mood 01/29/24 02/02/24 History golimumab 12.5 mg/mL intravenous See Rx Instructions IV .COMPLEX 01/31/24 12/07/23 History solution (Simponi ARIA) arthritis ciprofloxacin HCl 500 mg tablet 500 mg PO BID antibiotic 6 days #0 02/03/24 Unknown Rx tabs doxycycline monohydrate 100 mg 100 mg PO BID antibiotic 6 days #0 02/03/24 Unknown Rx capsule caps metronidazole 500 mg tablet 500 mg PO TID antibiotic 6 days #0 02/03/24 02/03/24 Rx tabs Allergy/AdvReac Type Severity Reaction Status Date / Time cephalexin monohydrate (From Allergy Hives Verified 01/29/24 20:15 Keflex) ethchlorvynol (From Placidyl) Allergy Unknown Verified 01/29/24 20:15 Penicillins (PCN) Allergy Unknown Verified 01/29/24 20:15 Sulfa (Sulfonamide Allergy Rash Verified 01/29/24 20:15 Antibiotics) sulfamethoxazole (From Allergy Unknown Verified 01/29/24 20:15 Septra) trimethoprim (From Septra) Allergy Unknown Verified 01/29/24 20:15 Family History Father CAD (coronary artery disease) Mother Breast cancer breast Surgical History History of appendectomy History of evacuation of hematoma (03/20/18) History of right knee joint replacement History of bunionectomy of both great toes H/O shoulder surgery History of arthroplasty of left knee H/O total hysterectomy H/O colectomy Hx of cholecystectomy History of tonsillectomy and adenoidectomy History of left heart catheterization (1999) surgical debridement left lower extremity (10/2014) Social History household members: spouse Smoking Status: Never smoker alcohol intake: current alcohol intake frequency: holidays/special occasions only Alcohol type: wine substance use type: does not use caffeine: Yes Type: coffee Number of servings: 2 ROS Constitutional Constitutional: Denies chills, fever(s) or weight gain ENT HEENT: Denies headache(s), nasal congestion or nasal discharge Cardiovascular Cardiovascular: Denies chest pain or palpitations Respiratory/Chest Respiratory/Chest: Denies cough, excessive phlegm production or shortness of breath with exertion Gastrointestinal Gastrointestinal: Denies abdominal pain, nausea or vomiting Genitourinary Genitourinary: Denies dysuria Musculoskeletal Musculoskeletal: Denies joint pain or joint swelling Integumentary Integumentary: Denies rash or wounds Neurologic Neurologic: Denies focal weakness, numbness or tingling Psychiatric Psychiatric: Denies anxiety, auditory hallucinations, depression, homicidal ideation or suicidal ideation Physical Exam Const alert General Appearance: cooperative HEENT normocephalic Eyes PERRL and EOMs intact bilaterally Neck supple, no JVD and no carotid bruits Resp normal respiratory effort, normal air movement and clear to auscultation bilaterally Cardio regular rate and regular rhythm GI normal to inspection, nondistended, normoactive bowel sounds, non-tender and non-distended Extremity normal capillary refill Extremity Narrative: Left upper extremity midline. Left lower extremity dressed, wound VAC present. General Extremity: Negative for edema Skin no rashes or lesions noted General Skin Exam: no breakdown Psych affect normal Appearance: appropriate Assessment & Plan Assessment/Plan (1) Debility: (2) Dog scratch: (3) Cellulitis of left leg: (4) Wound of left lower extremity: (5) Abscess of left lower extremity: (6) Atrial fibrillation: (7) Hyperlipidemia: QUALIFIERS: Hyperlipidemia type: pure hypercholesterolemia Qualified Code(s): E78.00 - Pure hypercholesterolemia, unspecified; E78.0 - Pure hypercholesterolemia (8) Vitamin D deficiency: (9) Hypothyroidism: (10) Depression: (11) Appetite loss: (12) Rheumatoid arthritis: QUALIFIERS: Rheumatoid arthritis location: unspecified site Rheumatoid factor presence: unspecified presence Qualified Code(s): M06.9 - Rheumatoid arthritis, unspecified PLAN: Plan 83 year old female with below past medical history hospitalized for left lower extremity cellulitis/abscess 2/2 dog scratch, underwent debridement/wound VAC placement 01/31/[address] Enriquez, admitted to TCU with debility, here for rehabilitation, strengthening, wound care, prior to discharge home. * Debility - PT/OT. * Pain - Tylenol 1000mg q6 prn pain (1-5), Tramadol 50mg q6 prn pain (6-10). * Bowel - senna/colace 1 tablet bid, Magnesium citrate 300mL po daily prn. * Adult immunization - Administer pneumonia vaccine, covid vaccine, flu vaccine as appropriate. * DVT prophylaxis - Lovenox 40mg sc daily. * Left lower extremity cellulitis/abscess s/p debridement - Flagyl 500mg tid x 6 days, Cipro 500mg bid x 6 days, Doxycycline 100mg bid x 6 days, consult Dr. Enriquez to follow. * Hypothyroidism - Levothyroxine 75mcg daily. * Atrial Fibrillation - Amiodarone 200mg daily, Eliquis 5mg bid. * Vitamin D deficiency - D3 25mcg daily. 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 * GI prophylaxis - Acidophilus 1 capsule daily * Recurrent UTI - Azo D-Mannose 1000mg bid. 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 * RA - Hold Simponi Aria while on TCU. * Hyperlipidemia - Atorvastatin 20mg qhs.
[2024-02-03 20:15] VITALS: PULSE 78; RESP 17; O2SAT 93
[2024-02-03] MEDS: traMADol 50 MG Tablet PO (21:33)
[2024-02-03] MEDS: Acetaminophen 500 MG Tablet 1000 MG PO (21:34)
[2024-02-03] MEDS: Doxycycline 100 MG CAPSULE PO (22:05)
[2024-02-03] MEDS: Menthol/Lanolin/Calamine/Znox 113 GM Tube 1 APPLIC TOPICAL (22:05)
[2024-02-03] MEDS: Ciprofloxacin 500 MG Tablet PO (22:05)
[2024-02-03] MEDS: metroNIDAZOLE 500 MG Tablet PO (22:05)
[2024-02-03] MEDS: Mirtazapine 30 MG Tablet PO (22:05)
[2024-02-03] MEDS: Senna/Docusate Sodium 1 Tablet PO (22:05)
[2024-02-03] MEDS: Atorvastatin Calcium 20 MG Tablet PO (22:05)
[2024-02-03] MEDS: APIXABAN 5 MG TABLET PO (22:05)
[2024-02-04] MEDS: Levothyroxine 75 MCG Tablet PO (06:23)
[2024-02-04] MEDS: metroNIDAZOLE 500 MG Tablet PO ×3 (06:23→22:32)
[2024-02-04] MEDS: Amiodarone 200 MG Tablet PO (07:53)
[2024-02-04] MEDS: Acetaminophen 500 MG Tablet 1000 MG PO ×2 (07:53→20:22)
[2024-02-04] MEDS: traMADol 50 MG Tablet PO (07:54)
[2024-02-04] MEDS: Ciprofloxacin 500 MG Tablet PO ×2 (10:16→22:33)
[2024-02-04] MEDS: Cholecalciferol (VIT D3) 25 MCG TABLET (1,000 UNITS) 50 MCG PO (10:16)
[2024-02-04] MEDS: DULoxetine Hcl 60 MG Capsule PO (10:17)
[2024-02-04] MEDS: Lactobacillis Acidophilus 1 CAP PO (10:17)
[2024-02-04] MEDS: APIXABAN 5 MG TABLET PO ×2 (10:17→22:33)
[2024-02-04] MEDS: Doxycycline 100 MG CAPSULE PO ×2 (10:17→22:32)
[2024-02-04] MEDS: Senna/Docusate Sodium 1 Tablet PO ×2 (10:17→22:32)
[2024-02-04] MEDS: Tuberculin,Purif.prot.deriv. 50 TU/ML Vial 0.1 ML ID (10:21)
[2024-02-04 12:00] VITALS: BMI 32.5
[2024-02-04] MEDS: Menthol/Lanolin/Calamine/Znox 113 GM Tube 1 APPLIC TOPICAL ×2 (12:40→22:33)
[2024-02-04 16:00] VITALS: BP 136/61; PULSE 69; RESP 16; TEMP 36.4; O2SAT 95
[2024-02-04] MEDS: oxyCODONE 5 MG Tablet PO (20:23)
--- NOTE | 2024-02-04 22:29 | PHA.CONS_ITS ---
Documented by User: Yakelin Hdez 02/04/24 22:53 TCU RX Drug Regimen Review Subjective/Objective Subjective/Objective: Subjective: TCU Admission. 83 YOF presented to outside ER with left leg wound. Hospitalized for left lower extremity cellulitis/abscess 2/2 dog scratch, underwent debridement/wound VAC placement 01/31/[address] Enriquez. Admitted to TCU with debility for strengthening and rehabilitation. Objective: Allergies cephalexin monohydrate (From Keflex) Allergy (Verified 01/29/24 20:15) Hives ethchlorvynol (From Placidyl) Allergy (Verified 01/29/24 20:15) Unknown Penicillins (PCN) Allergy (Verified 01/29/24 20:15) Unknown Sulfa (Sulfonamide Antibiotics) Allergy (Verified 01/29/24 20:15) Rash sulfamethoxazole (From Septra) Allergy (Verified 01/29/24 20:15) Unknown trimethoprim (From Septra) Allergy (Verified 01/29/24 20:15) Unknown Current Medications Generic Name Dose Route Start Last Admin Trade Name Freq PRN Reason Stop Dose Admin Acetaminophen 1,000 mg 02/03/24 20:18 02/04/24 20:22 Acetaminophen 500 Mg Tablet PO 1,000 mg Q6H PRN PRN Administration Pain Score 1-5 Amiodarone HCl 200 mg 02/04/24 08:00 02/04/24 07:53 Amiodarone 200 Mg Tablet PO 200 mg BREAKFAST ERIK Administration Apixaban 5 mg 02/03/24 22:00 02/04/24 10:17 Apixaban 5 Mg Tablet PO 5 mg BID ERIK Administration Atorvastatin Calcium 20 mg 02/03/24 22:00 02/03/24 22:05 Atorvastatin Calcium 20 Mg Tablet PO 20 mg QHS ERIK Administration Calamine/Phenol 1 applic 02/03/24 22:00 02/04/24 12:40 Menthol/Lanolin/Calamine/Znox 113 Gm Tube TOPICAL 1 applic BID ERIK Administration Protocol Cholecalciferol 50 mcg 02/04/24 10:00 02/04/24 10:16 Cholecalciferol (Vit D3) 25 Mcg Tablet (1,000 Units) PO 50 mcg DAILY ERIK Administration Ciprofloxacin HCl 500 mg 02/03/24 22:00 02/04/24 10:16 Ciprofloxacin 500 Mg Tablet PO 02/09/24 22:01 500 mg BID ERIK Administration Doxycycline Monohydrate 100 mg 02/03/24 22:00 02/04/24 10:17 Doxycycline 100 Mg Capsule PO 02/09/24 22:01 100 mg BID ERIK Administration Duloxetine HCl 60 mg 02/04/24 10:00 02/04/24 10:17 Duloxetine Hcl 60 Mg Capsule PO 60 mg DAILY ERIK Administration Levothyroxine Sodium 75 mcg 02/04/24 06:00 02/04/24 06:23 Levothyroxine 75 Mcg Tablet PO 75 mcg DAILY@0600 [facility] Administration Magnesium Citrate 300 ml 02/03/24 20:36 Magnesium Citrate 300 Ml PO DAILY PRN Constipation Metronidazole 500 mg 02/03/24 22:00 02/04/24 14:49 Metronidazole 500 Mg Tablet PO 02/09/24 22:01 500 mg TID [facility] Administration Mirtazapine 30 mg 02/03/24 22:00 02/03/24 22:05 Mirtazapine 30 Mg Tablet PO 30 mg QHS [facility] Administration Oxycodone HCl 5 mg 02/04/24 09:20 02/04/24 20:23 Oxycodone 5 Mg Tablet PO 5 mg Q4H PRN PRN Administration Pain Score >5 or Pre WoundCare Senna/Docusate Sodium 1 tablet 02/03/24 22:00 02/04/24 10:17 Senna/Docusate Sodium 1 Tablet PO 1 tablet BID [facility] Administration Tramadol HCl 50 mg 02/03/24 20:35 02/04/24 07:54 Tramadol 50 Mg Tablet PO 50 mg Q6H PRN PRN Administration Pain Score 6-10 or Pre PT/OT Tuberculin PPD 0.1 ml 02/11/24 10:00 Tuberculin,Purif.Prot.Deriv. 50 Tu/Ml Vial ID 02/11/24 10:01 X1 ONE Problem List Appetite loss (Acute) Abscess of left lower extremity (Acute) Wound of left lower extremity (Acute) Dog scratch (Acute) Cellulitis of left leg (Acute) Hypothyroidism (Acute) Rheumatoid arthritis (Acute) Atrial fibrillation (Acute) Debility (Acute) Vitamin D deficiency (Acute) Depression (Acute) Hyperlipidemia (Chronic) Vital Signs Temp Pulse Resp BP Pulse Ox O2 Del Method 97.5 F L 69 16 136/61 H 95 Room Air 02/04/24 16:00 02/04/24 16:00 02/04/24 16:00 02/04/24 16:00 02/04/24 16:00 02/04/24 16:00 Oxygen Delivery Method Room Air Weight: 85.865 kg Body Mass Index (BMI) 32.5 Assessment/Plan: 1. Pain: acetaminophen 1000mg PO Q6H PRN pain (1-3), tramadol 50mg PO Q6H PRN pain (4-5) and oxycodone 5mg PO Q4H PRN pain >6 or pre-woundcare. Pain scores adjusted per policy. Resident has had 3 doses of acetaminophen, 2 doses of tramadol and 1 dose of oxycodone for pain scores of 6,7 and 9 in the LLE/jimenez. Please continue to monitor for increased pain, PRN usage, constipation, respiratory depression and renal function (CrCl 42.5mL/min). 2. Bowel: senna/docusate 1T PO BID and magnesium citrate 300mL PO daily PRN constipation. No PRN doses have been given. Please continue to monitor for constipation and PRN usage. Last documented bowel movement was 02/02. 3. Left lower extremity cellulitis/abscess s/p debridement: metronidazole 500mg PO TID, ciprofloxacin 500mg PO BID and doxycycline 100mg PO BID all thru 02/09/24. Please continue to monitor renal function, diarrhea, upset stomach and S/S of infection. Dr. Enriquez following. 4. Atrial fibrillation: amiodarone 200mg PO daily and apixaban 5mg PO BID. Please continue to monitor for S/S of bleeding, hemoglobin (last 11.1g/dL), BP (last 136/61), HR (last 69), sodium (last 136mmol/L) and potassium (last 4.4mmol/L). 5. Hypothyroidism: levothyroxine 75mcg PO daily. Please continue to monitor for S/S of hypothyroidism and TSH (last 01/31/24). 6. Hyperlipidemia: atorvastatin 20mg PO QHS. Please consider ordering a lipid panel as the last is from 12/2019. Thanks. Please continue to monitor for muscle pain. 7. Vitamin D deficiency/GI prophylaxis: cholecalciferol 25mcg PO daily and lactobacillus 1C PO daily. Please consider ordering a vitamin D level as there is no level in the chart. Thanks. 8. RA: Loki Mccabe hold while on TCU. Please continue to monitor. Assessment/Plan for indications treated with psychotropic medications: 1. Depression: duloxetine 60mg PO daily. Please see physician note regarding GDR. Please continue to monitor for suicidal ideation (black box warning), falls/fractures (BEERs medication), sodium and renal function. 2. Appetite loss/insomnia: mirtazapine 30mg PO QHS. Please see physician note regarding GDR. Please continue to monitor for improved appetite, insomnia, suicidal ideation (black box warning) and sodium. Medical chart and medication regimen reviewed. The following medication irregularities or issues were identified: 1. Atorvastatin 20mg PO QHS. Please consider ordering a lipid panel as the last is from 12/2019. Thanks. 2. Cholecalciferol 25mcg PO daily and lactobacillus 1C PO daily. Please consider ordering a vitamin D level as there is no level in the chart. Thanks. Date Date of Note:: 02/04/24 Documented by User: Dr. Mac Jaimes MD 02/05/24 10:26 TCU RX Drug Regimen Review Provider Comments Provider responsibility Provider Comments to Recommendations by Pharmacy: Agree
[2024-02-04 22:30] VITALS: PULSE 75; RESP 18; O2SAT 99
[2024-02-04] MEDS: Atorvastatin Calcium 20 MG Tablet PO (22:32)
[2024-02-04] MEDS: Mirtazapine 30 MG Tablet PO (22:33)
[2024-02-05] MEDS: metroNIDAZOLE 500 MG Tablet PO ×3 (06:11→22:06)
[2024-02-05] MEDS: Levothyroxine 75 MCG Tablet PO (06:11)
[2024-02-05] MEDS: traMADol 50 MG Tablet PO ×2 (06:17→22:10)
[2024-02-05 07:43] VITALS: RESP 17
[2024-02-05] MEDS: Cholecalciferol (VIT D3) 25 MCG TABLET (1,000 UNITS) 50 MCG PO (09:34)
[2024-02-05] MEDS: Ciprofloxacin 500 MG Tablet PO ×2 (09:34→22:07)
[2024-02-05] MEDS: DULoxetine Hcl 60 MG Capsule PO (09:34)
[2024-02-05] MEDS: Doxycycline 100 MG CAPSULE PO ×2 (09:34→22:06)
[2024-02-05] MEDS: APIXABAN 5 MG TABLET PO ×2 (09:34→22:06)
[2024-02-05] MEDS: Senna/Docusate Sodium 1 Tablet PO (09:34)
[2024-02-05] MEDS: Lactobacillis Acidophilus 1 CAP PO (09:34)
[2024-02-05] MEDS: Amiodarone 200 MG Tablet PO (09:34)
[2024-02-05] MEDS: Menthol/Lanolin/Calamine/Znox 113 GM Tube 1 APPLIC TOPICAL ×2 (09:35→22:07)
[2024-02-05 11:19] LABS: Cholesterol 99 mg/dL (200); High Density Lipoprotein 56 mg/dL; Triglycerides 65 mg/dL; Very Low Density Lipoprotein 13 mg/dL (5-40)
[2024-02-05] MEDS: Acyclovir 200 MG Capsule 400 MG PO ×2 (13:15→22:05)
[2024-02-05 16:00] VITALS: BP 145/61; PULSE 77; RESP 14; TEMP 36.7; O2SAT 95
[2024-02-05] MEDS: Atorvastatin Calcium 20 MG Tablet PO (22:06)
[2024-02-05] MEDS: Mirtazapine 30 MG Tablet PO (22:06)
[2024-02-06] MEDS: Acyclovir 200 MG Capsule 400 MG PO ×3 (06:09→21:43)
[2024-02-06] MEDS: metroNIDAZOLE 500 MG Tablet PO ×3 (06:10→21:43)
[2024-02-06] MEDS: Levothyroxine 75 MCG Tablet PO (06:10)
[2024-02-06 08:33] VITALS: BP 151/74; PULSE 85; RESP 16; TEMP 36.3; O2SAT 93
[2024-02-06] MEDS: DULoxetine Hcl 60 MG Capsule PO (08:34)
[2024-02-06] MEDS: Senna/Docusate Sodium 1 Tablet PO ×2 (08:34→21:43)
[2024-02-06] MEDS: Ciprofloxacin 500 MG Tablet PO ×2 (08:34→21:43)
[2024-02-06] MEDS: Menthol/Lanolin/Calamine/Znox 113 GM Tube 1 APPLIC TOPICAL ×2 (08:34→21:43)
[2024-02-06] MEDS: APIXABAN 5 MG TABLET PO ×2 (08:34→21:43)
[2024-02-06] MEDS: Lactobacillis Acidophilus 1 CAP PO (08:34)
[2024-02-06] MEDS: Cholecalciferol (VIT D3) 25 MCG TABLET (1,000 UNITS) 50 MCG PO (08:34)
[2024-02-06] MEDS: Doxycycline 100 MG CAPSULE PO ×2 (08:34→21:43)
[2024-02-06] MEDS: Amiodarone 200 MG Tablet PO (08:34)
[2024-02-06 08:56] LABS: Vitamin D,25 Hydroxy 55.8 ng/mL
--- NOTE | 2024-02-06 09:02 | NURSING ---
Community [facility] Nurse Supervisor Note; Activity Asset: Oswald Celaya is independent in her choice of daily activities. She has returned to [facility] for more therapy. Belia has a laptop she uses for puzzles and internet along with reading and watching tv. She will visit w/family, friends and catholic. She welcomes visits w/the roller print tender and therapy dog when available. She prefers independent in room activities over group. Staff will encourage social activities, remind her of weekly activities and respect her right to say no.
--- NOTE | 2024-02-06 12:07 | CASEMGMT ---
Social Work SW met with patient to complete initial assessment. Pt known to this worker from previous stay. Verified contacts. Pt confirmed code status as full code. Educated to [facility] insurance with [employer] 02/06 and continued stay is not guaranteed with each review. Pt's goal is to return home. pt currently has wound vac. Pt will essentially be discharging home alone, as is currently in TCU as well with an unknown DC. Dtrs are very supportive. SW will continue to follow for DC planning. Taylor Ramon, PIT OPERATOR [employer]
--- NOTE | 2024-02-06 12:11 | NURSING ---
Addendum entered by Anjali Amezquita 02/06/24 13:46: Resident realized she had told RN incorrect. She meant to say she'd recently had covid and her physician told her not to get the covid vaccine. Original Note: Offered most recent covid vaccine, resident reports she's already had it.
--- NOTE | 2024-02-06 13:53 | CHAPLAIN ---
Type of Pastoral Visit ___ Initial Visit _x__ Follow-up Visit ___ On-call Visit ___ General Patient Visit ___ Spiritual Assessment ___ Family Conference ___ Bereavement ___ Rapid Response ___ Code Blue ___ Other (describe below) Pastoral Care Referral From _x__ Patient _x__ Family ___ Nurse ___ Physician ___ Gravure Press Operator ___ Payroll Secretary ___ Other (describe below) Sacrament/Intervention _x__ Active listening ___ Anointing ___ Anglican ___ Bereavement ___ Communion ___ Alva exploration ___ ___ Life review _x__ Prayer ___ Reconciliation ___ Sacrament of Sick _x__ Supportive presence ___ Wedding ___ Other (describe below) Pastoral Comments saw this patient last week in PCU; follow up to find patient more talkative and hopeful about her situation; pt is more concerned about her who is also in TCU and needs more medical attention; pt asks for prayer for both herself and as they both have procedures scheduled for Tuesday; offer made to visit her now too
[2024-02-06] MEDS: Atorvastatin Calcium 20 MG Tablet PO (21:43)
[2024-02-06] MEDS: Mirtazapine 30 MG Tablet PO (21:43)
[2024-02-06 22:04] VITALS: PULSE 78; RESP 16; O2SAT 92
[2024-02-07] MEDS: metroNIDAZOLE 500 MG Tablet PO ×3 (06:16→21:26)
[2024-02-07] MEDS: Acyclovir 200 MG Capsule 400 MG PO ×3 (06:16→21:25)
[2024-02-07] MEDS: Levothyroxine 75 MCG Tablet PO (06:16)
--- NOTE | 2024-02-07 06:56 | NURSING ---
CBC w/ Diff and BMP entered per DRE Lara, for insurance update. Call placed to lab and spoke w/ Jaz to update.
[2024-02-07 07:36] LABS: Absolute Neutrophil Count 2.9 X10^3/uL (2.0-7.7); Basophil# 0.04 X10^3/uL; Basophil% 0.7 % (0-1); Eosinophil# 0.22 X10^3/uL; Hematocrit 34.9 % (37-47); Hemoglobin 11.3 g/dL (12.0-15.0); Lymphocyte % 25.6 % (19-41); Mean Corp Hgb Conc 32.4 g/dL (32-36); Mean Corpuscular Hgb 31.2 pg (27.0-32.0); Mean Corpuscular Volume 96.4 fL (81-99); Mean Platelet Vol. 9.5 fl (6.2-12.0); Monocyte# 0.82 X10^3/uL; NRBC Flagged by Analyzer 0 % (0-5); Neutrophil # 2.93 X10^3/uL (2.7-7.7); Neutrophil % 53.8 % (47-70); Platelet Count 268 K/mm3 (150-450); RBC Distribution Width CV 13.6 % (11.6-14.6); RBC Distribution Width SD 48.2 fl (35.1-43.9); Red Blood Count 3.62 M/mm3 (4.2-5.4); White Blood Count 5.5 K/mm3 (4.4-11.0)
[2024-02-07 08:09] LABS: Anion Gap 6 (5-15); BUN 23 mg/dL (7-18); BUN/Creat Ratio 24.9 RATIO (10-20); Chloride 108 mmol/L (98-107); Creatinine, Serum 0.92 mg/dL (0.55-1.02); EST Glomerular Filtration Rate 62 mL/min (>60); Est Glom Filt Rate - Afr Amer 75 mL/min (>60); Estimated Creatinine Clearance 49.99 ml/min; Glucose 108 mg/dL (74-106); Potassium 4.1 mmol/L (3.5-5.1); Sodium Level 140 mmol/L (136-145)
[2024-02-07] MEDS: Amiodarone 200 MG Tablet PO (09:20)
[2024-02-07] MEDS: Lactobacillis Acidophilus 1 CAP PO (09:20)
[2024-02-07] MEDS: Ciprofloxacin 500 MG Tablet PO ×2 (09:21→21:25)
[2024-02-07] MEDS: DULoxetine Hcl 60 MG Capsule PO (09:21)
[2024-02-07] MEDS: Doxycycline 100 MG CAPSULE PO ×2 (09:21→21:25)
[2024-02-07] MEDS: APIXABAN 5 MG TABLET PO (09:21)
[2024-02-07] MEDS: Cholecalciferol (VIT D3) 25 MCG TABLET (1,000 UNITS) 50 MCG PO (09:22)
[2024-02-07] MEDS: Menthol/Lanolin/Calamine/Znox 113 GM Tube 1 APPLIC TOPICAL ×2 (09:24→21:26)
[2024-02-07 11:00] VITALS: BMI 32.5
[2024-02-07] MEDS: oxyCODONE 5 MG Tablet PO (13:26)
--- NOTE | 2024-02-07 14:27 | NURSING ---
Call from Emily at [facility], she said Dr. Enriquez is planning outpatient surgery tomorrow at 12:30. Resident to be NPO and eliquis needs held. Asked that RN reach out to AC about other meds to give/hold. Resident updated.
--- NOTE | 2024-02-07 14:45 | WOUNDNOTE ---
wound photo: left lower leg
[2024-02-07 15:07] VITALS: BP 127/67; PULSE 85; RESP 16; TEMP 36.7; O2SAT 95
[2024-02-07 15:16] VITALS: PULSE 85; RESP 16; O2SAT 95
[2024-02-07] MEDS: Mirtazapine 30 MG Tablet PO (21:25)
[2024-02-07] MEDS: Atorvastatin Calcium 20 MG Tablet PO (21:27)
[2024-02-08] MEDS: Levothyroxine 75 MCG Tablet PO (06:31)
[2024-02-08 07:53] VITALS: BP 116/64; PULSE 73; RESP 16; TEMP 36.8; BMI 32.5
[2024-02-08] MEDS: Amiodarone 200 MG Tablet PO (08:33)
[2024-02-08 09:25] VITALS: BP 116/64; PULSE 116; RESP 16; TEMP 36.8; O2SAT 94
--- NOTE | 2024-02-08 10:40 | NURSING ---
Dr strong and HOUSE FATHER in to see pt this AM.
--- NOTE | 2024-02-08 10:47 | PN.SURG_ITS ---
<Statement entered by Pato Enriquez MD - 02/08/24 12:10> Pt seen & evaluated w/FRANCISCA. I personally interviewed & exam the pt. I was involved in all aspects of pt's orders, interpretation of results & treatment Subjective Subjective Postop #8 Patient is doing well. She states she has minimal pain. Objective Data Objective Data Vital Signs: Vital Signs Temp Pulse Resp BP Pulse Ox O2 Del Method 98.3 F 116 H 16 116/64 94 Room Air 02/08/24 09:25 02/08/24 09:25 02/08/24 09:25 02/08/24 09:25 02/08/24 09:25 02/08/24 09:25 Oxygen Delivery Method Room Air Weight: 190 lb 0.016 oz Body Mass Index (BMI) 32.5 Intake & Output: Intake and Output for Last 24 Hours 02/06/24 02/07/24 02/08/24 23:59 23:59 23:59 Intake Total 1080 / 1080 720 / 720 Balance 1080 / 1080 720 / 720 Lab / Micro Data Attestation: I reviewed the patient's lab results. 02/07/24 07:29 02/07/24 07:29 Physical Exam Narrative Left lower extremity with wound VAC in place. No clinical signs of infection. Const alert, oriented x3 and no apparent distress HEENT normocephalic Resp normal respiratory effort Effort and Inspection: able to speak in complete sentences Cardio regular rate Assessment & Plan Assessment/Plan (1) Wound of left lower extremity: PLAN: Plan Dr Enriquez at the bedside to discuss skin grafting, including the risks, benefits, and alternatives (wound care). She would like to proceed with the skin graft option. This is scheduled for later today. She has been NPO since midnight. She will still have the wound VAC after the skin grafting. Operative cultures from 01/31/24 have been negative for bacterial growth. ID was consulted. She is on Doxycycline, Cipro and Flagyl until 02/09/24. Charges/Coding Procedures Integumentary [id number]: [id number] Global Visit
--- NOTE | 2024-02-08 11:08 | NURSING ---
pt off unit via bed w/surgery staff at this time
[2024-02-08 15:27] VITALS: BP 126/61; PULSE 69; RESP 16; TEMP 36.4; O2SAT 97
--- NOTE | 2024-02-08 15:27 | NURSING ---
Back to room after surgery. VSS.
[2024-02-08 20:00] VITALS: PULSE 70; RESP 18; O2SAT 96
[2024-02-08] MEDS: Nystatin Powder 15gm Bottle 1 APPLIC TOPICAL (20:52)
[2024-02-08] MEDS: oxyCODONE 5 MG Tablet PO (20:53)
[2024-02-08] MEDS: Acyclovir 200 MG Capsule 400 MG PO (20:55)
[2024-02-08] MEDS: Doxycycline 100 MG CAPSULE PO (20:56)
[2024-02-08] MEDS: Atorvastatin Calcium 20 MG Tablet PO (20:56)
[2024-02-08] MEDS: Senna/Docusate Sodium 1 Tablet PO (20:56)
[2024-02-08] MEDS: metroNIDAZOLE 500 MG Tablet PO (20:57)
[2024-02-08] MEDS: Ciprofloxacin 500 MG Tablet PO (20:57)
[2024-02-08] MEDS: Mirtazapine 30 MG Tablet PO (20:57)
[2024-02-09] MEDS: oxyCODONE 5 MG Tablet PO ×3 (01:51→13:17)
[2024-02-09] MEDS: Levothyroxine 75 MCG Tablet PO (06:06)
[2024-02-09] MEDS: metroNIDAZOLE 500 MG Tablet PO ×3 (06:06→22:14)
[2024-02-09] MEDS: Acyclovir 200 MG Capsule 400 MG PO ×3 (06:06→22:17)
[2024-02-09] MEDS: Nystatin Powder 15gm Bottle 1 APPLIC TOPICAL ×2 (06:07→22:15)
[2024-02-09] MEDS: Cholecalciferol (VIT D3) 25 MCG TABLET (1,000 UNITS) 50 MCG PO (08:11)
[2024-02-09] MEDS: Senna/Docusate Sodium 1 Tablet PO ×2 (08:12→22:16)
[2024-02-09] MEDS: Lactobacillis Acidophilus 1 CAP PO (08:12)
[2024-02-09] MEDS: APIXABAN 5 MG TABLET PO ×2 (08:12→22:14)
[2024-02-09] MEDS: Amiodarone 200 MG Tablet PO (08:13)
[2024-02-09] MEDS: DULoxetine Hcl 60 MG Capsule PO (08:16)
[2024-02-09] MEDS: Ciprofloxacin 500 MG Tablet PO ×2 (10:23→22:13)
[2024-02-09] MEDS: Doxycycline 100 MG CAPSULE PO ×2 (10:23→22:13)
[2024-02-09 10:47] VITALS: BP 104/85; PULSE 77; RESP 16; TEMP 36.3; O2SAT 95
--- NOTE | 2024-02-09 11:36 | CASEMGMT ---
Plan of care meeting held with pt and pt's daughter Ophelia in attendance. Therapy discussed pt progress with therapy and pt is making good progress. Surgery yesterday and wound vac continues. Per surgeon's report, would vac to be removed on 02/13/24. Pt plans to return home alone at time of dc. Pt dgt does provide much support. SW provided pt/family written communication on insurance process and copay coverage during stay. Next review date with insurance is 02/16/24 with expected dc of 02/20/24. Pt and family feel pt will benefit from continued home health PT/OT/SN when pt returns home. SW will continue to follow for dc planning. JUANITA Teixeira
--- NOTE | 2024-02-09 12:05 | MDS.RN ---
Pain interview for MDS complete.
--- NOTE | 2024-02-09 16:16 | CASEMGMT ---
BIMS () and PHQ9 (0) interviews completed on this date for MDS assessment. JUANITA Teixeira
--- NOTE | 2024-02-09 18:00 | PCM.PROGNOTE ---
Subjective Subjective Doing well postoperatively. Working with physical therapy today. Pain from the left anterior leg but controlled with pain medication. Objective Data Objective Data Vital Signs: Vital Signs Temp Pulse Resp BP Pulse Ox O2 Del Method 97.4 F L 77 16 104/85 H 95 Room Air 02/09/24 10:47 02/09/24 10:47 02/09/24 10:47 02/09/24 10:47 02/09/24 10:47 02/09/24 10:47 Oxygen Delivery Method Room Air Weight: 190 lb 0.016 oz Body Mass Index (BMI) 32.5 Intake & Output: Intake and Output for Last 24 Hours 02/07/24 02/08/24 02/09/24 23:59 23:59 23:59 Intake Total 720 / 720 240 / 240 840 / 840 Balance 720 / 720 240 / 240 840 / 840 Lab / Micro Data 02/07/24 07:29 02/07/24 07:29 Physical Exam Narrative Left lower extremity Left thigh with dressings clean dry and intact The left jimenez has the VAC in place and is holding suction without any drainage in the VAC. Left foot and toes are warm and well-perfused Assessment & Plan Assessment/Plan (1) Wound of left lower extremity: PLAN: Continue wound VAC therapy at all times over the skin graft Plan for dressing change/VAC removal on Tuesday, 13 Feb 2024, at bedside. Charges/Coding Procedures Integumentary 111xxx-113xx: [id number] Global Visit
[2024-02-09 20:00] VITALS: PULSE 76; RESP 18; O2SAT 92
[2024-02-09] MEDS: Menthol/Lanolin/Calamine/Znox 113 GM Tube 1 APPLIC TOPICAL (22:11)
[2024-02-09] MEDS: 0.9% Saline Lock 10 ML Syringe IV (22:12)
[2024-02-09] MEDS: Atorvastatin Calcium 20 MG Tablet PO (22:15)
[2024-02-09] MEDS: Mirtazapine 30 MG Tablet PO (22:16)
[2024-02-10] MEDS: oxyCODONE 5 MG Tablet PO ×2 (00:05→09:05)
[2024-02-10] MEDS: Acyclovir 200 MG Capsule 400 MG PO ×3 (05:37→21:12)
[2024-02-10] MEDS: Nystatin Powder 15gm Bottle 1 APPLIC TOPICAL ×2 (05:37→21:11)
[2024-02-10] MEDS: Levothyroxine 75 MCG Tablet PO (05:37)
[2024-02-10] MEDS: Lactobacillis Acidophilus 1 CAP PO (09:05)
[2024-02-10] MEDS: Senna/Docusate Sodium 1 Tablet PO ×2 (09:05→21:12)
[2024-02-10] MEDS: DULoxetine Hcl 60 MG Capsule PO (09:05)
[2024-02-10] MEDS: APIXABAN 5 MG TABLET PO ×2 (09:06→21:12)
[2024-02-10] MEDS: Cholecalciferol (VIT D3) 25 MCG TABLET (1,000 UNITS) 50 MCG PO (09:06)
[2024-02-10] MEDS: Amiodarone 200 MG Tablet PO (09:06)
[2024-02-10] MEDS: Menthol/Lanolin/Calamine/Znox 113 GM Tube 1 APPLIC TOPICAL (09:07)
--- NOTE | 2024-02-10 09:48 | NURSING ---
Ur Coordinator Note; MDS for 02/10/2024 Complete
[2024-02-10 10:00] VITALS: PULSE 75; RESP 18; O2SAT 95
--- NOTE | 2024-02-10 15:39 | PCM.PN.SRG ---
Subjective Subjective Doing well. Pain controlled. Objective Data Objective Data Vital Signs: Vital Signs Temp Pulse Resp BP Pulse Ox O2 Del Method 97.4 F L 75 18 104/85 H 95 Room Air 02/09/24 10:47 02/10/24 10:00 02/10/24 10:00 02/09/24 10:47 02/10/24 10:00 02/10/24 10:00 Oxygen Delivery Method Room Air Weight: 190 lb 0.016 oz Body Mass Index (BMI) 32.5 Intake & Output: Intake and Output for Last 24 Hours 02/08/24 02/09/24 02/10/24 23:59 23:59 23:59 Intake Total 240 / 240 1020 / 1020 960 / 960 Balance 240 / 240 1020 / 1020 960 / 960 Lab / Micro Data 02/07/24 07:29 02/07/24 07:29 Physical Exam Narrative Left lower extremity Left thigh with dressings clean dry and intact The left jimenez has the VAC in place and is holding suction without any drainage in the VAC. MACY removed Left foot and toes are warm and well-perfused Assessment & Plan Assessment/Plan (1) Wound of left lower extremity: PLAN: Continue wound VAC therapy at all times over the skin graft Plan for dressing change/VAC removal on Tuesday, 13 Feb 2024, at bedside.
[2024-02-10 16:00] VITALS: BP 112/54; PULSE 72; RESP 16; TEMP 36.6; O2SAT 97
[2024-02-10] MEDS: Atorvastatin Calcium 20 MG Tablet PO (21:12)
[2024-02-10] MEDS: Mirtazapine 30 MG Tablet PO (21:12)
[2024-02-10] MEDS: 0.9% Saline Lock 10 ML Syringe IV (21:17)
[2024-02-11 02:00] VITALS: PULSE 72; RESP 16; O2SAT 98
[2024-02-11] MEDS: Levothyroxine 75 MCG Tablet PO (05:56)
[2024-02-11] MEDS: Acyclovir 200 MG Capsule 400 MG PO ×3 (05:56→21:39)
[2024-02-11] MEDS: Nystatin Powder 15gm Bottle 1 APPLIC TOPICAL ×2 (05:57→21:36)
[2024-02-11] MEDS: Cholecalciferol (VIT D3) 25 MCG TABLET (1,000 UNITS) 50 MCG PO (08:20)
[2024-02-11] MEDS: APIXABAN 5 MG TABLET PO ×2 (08:20→21:39)
[2024-02-11] MEDS: Amiodarone 200 MG Tablet PO (08:20)
[2024-02-11] MEDS: DULoxetine Hcl 60 MG Capsule PO (08:20)
[2024-02-11] MEDS: Lactobacillis Acidophilus 1 CAP PO (08:20)
[2024-02-11] MEDS: Senna/Docusate Sodium 1 Tablet PO ×2 (08:20→21:39)
[2024-02-11] MEDS: Menthol/Lanolin/Calamine/Znox 113 GM Tube 1 APPLIC TOPICAL ×2 (08:25→21:36)
[2024-02-11 08:42] LABS: Absolute Lymphocyte Count 1.39 X10^3/uL (0.83-4.51); Absolute Neutrophil Count 2.9 X10^3/uL (2.0-7.7); Basophil# 0.06 X10^3/uL; Basophil% 1.1 % (0-1); Eosinophil# 0.32 X10^3/uL; Eosinophils% 5.6 % (0-5); Hematocrit 34.8 % (37-47); Lymphocyte # 1.39 X10^3/ul (0.83-4.51); Lymphocyte % 24.5 % (19-41); Mean Corp Hgb Conc 31.6 g/dL (32-36); Mean Corpuscular Hgb 30.8 pg (27.0-32.0); Mean Corpuscular Volume 97.5 fL (81-99); Mean Platelet Vol. 9.8 fl (6.2-12.0); Monocyte# 0.97 X10^3/uL; Monocyte% 17.1 % (0-10); NRBC Flagged by Analyzer 0 % (0-5); Neutrophil # 2.88 X10^3/uL (2.7-7.7); Neutrophil % 50.6 % (47-70); Platelet Count 266 K/mm3 (150-450); RBC Distribution Width CV 13.2 % (11.6-14.6); RBC Distribution Width SD 47.5 fl (35.1-43.9); Red Blood Count 3.57 M/mm3 (4.2-5.4); White Blood Count 5.7 K/mm3 (4.4-11.0)
[2024-02-11 09:04] LABS: Anion Gap 5 (5-15); BUN 22 mg/dL (7-18); BUN/Creat Ratio 26.9 RATIO (10-20); Calcium,Total 9.2 mg/dL (8.5-10.1); Chloride 106 mmol/L (98-107); Creatinine, Serum 0.82 mg/dL (0.55-1.02); EST Glomerular Filtration Rate 71 mL/min (>60); Est Glom Filt Rate - Afr Amer 86 mL/min (>60); Estimated Creatinine Clearance 56.19 ml/min; Glucose 90 mg/dL (74-106); Potassium 3.9 mmol/L (3.5-5.1); Sodium Level 139 mmol/L (136-145)
[2024-02-11] MEDS: Tuberculin,Purif.prot.deriv. 50 TU/ML Vial 0.1 ML ID (10:16)
[2024-02-11] MEDS: 0.9% Saline Lock 10 ML Syringe IV (10:18)
[2024-02-11 12:12] VITALS: BP 119/64; PULSE 85; RESP 16; TEMP 37.1; O2SAT 92
--- NOTE | 2024-02-11 12:51 | NURSING ---
Patient c/o urine frequency and incontinence, felt she may be getting UTI. N.O. received for UA, C&S. Urine obtained by straight cath and sent to lab.
[2024-02-11 13:12] LABS: Bacteria 0 SEEN /hpf (None Seen); Mucous, Urine 0 SEEN /hpf (<or=2+); Red Blood Cells-Urine 0 SEEN /hpf (0-5); Squamous Epithelial Cells - UA 0 SEEN /hpf (5-10); White Blood Cells 0 SEEN /hpf (0-5)
[2024-02-11 13:14] LABS: Color, Urine Yellow (Yellow); Glucose, Dipstick Normal (Normal); Ketone-Dipstick Negative (Negative); Leukocyte Esterase-Dipstick Negative /ul (Negative); Nitrite-Dipstick Negative (Negative); Occult Blood-Urine Negative /ul (Negative); Protein-Dipstick Negative (Negative); Specific Gravity, Urine 1.015 (1.002-1.030); Urine Bilirubin Dipstick Negative (Negative); Urine Clarity Sl. Cloudy (Clear); Urine Urobilinogen Normal (Normal)
[2024-02-11] MEDS: oxyCODONE 5 MG Tablet PO (21:35)
[2024-02-11] MEDS: Atorvastatin Calcium 20 MG Tablet PO (21:39)
[2024-02-11] MEDS: Mirtazapine 30 MG Tablet PO (21:39)
[2024-02-12] MEDS: Levothyroxine 75 MCG Tablet PO (06:22)
[2024-02-12] MEDS: Nystatin Powder 15gm Bottle 1 APPLIC TOPICAL ×2 (06:22→21:30)
[2024-02-12] MEDS: Acyclovir 200 MG Capsule 400 MG PO ×2 (06:22→13:51)
[2024-02-12] MEDS: Lactobacillis Acidophilus 1 CAP PO (08:22)
[2024-02-12] MEDS: Amiodarone 200 MG Tablet PO (08:22)
[2024-02-12] MEDS: DULoxetine Hcl 60 MG Capsule PO (08:22)
[2024-02-12] MEDS: APIXABAN 5 MG TABLET PO ×2 (08:22→21:29)
[2024-02-12] MEDS: Senna/Docusate Sodium 1 Tablet PO (08:23)
[2024-02-12] MEDS: Cholecalciferol (VIT D3) 25 MCG TABLET (1,000 UNITS) 50 MCG PO (08:23)
[2024-02-12] MEDS: Menthol/Lanolin/Calamine/Znox 113 GM Tube 1 APPLIC TOPICAL ×2 (08:24→21:30)
[2024-02-12 10:09] VITALS: BP 126/57; PULSE 70; RESP 16; TEMP 36.7; O2SAT 95
[2024-02-12] MEDS: Atorvastatin Calcium 20 MG Tablet PO (21:29)
[2024-02-12] MEDS: Mirtazapine 30 MG Tablet PO (21:29)
[2024-02-13] MEDS: Levothyroxine 75 MCG Tablet PO (06:30)
[2024-02-13] MEDS: Nystatin Powder 15gm Bottle 1 APPLIC TOPICAL ×2 (06:30→22:34)
--- NOTE | 2024-02-13 08:50 | PCM.PN.SRG ---
Subjective Subjective Doing well overall. Walking. Pain controlled. Objective Data Objective Data Left lower extremity VAC removed. Some blood/fluid collections in areas beneath the STSG that are dry. The graft is stuck down everywhere, however. Unclear how much has taken. Vital Signs: Vital Signs Temp Pulse Resp BP Pulse Ox O2 Del Method O2 Flow Rate 98.0 F 70 16 126/57 H 95 Room Air 2 02/12/24 10:02/12/24 10:09 02/12/24 10:02/12/24 10:02/12/24 10:02/12/24 21:30 02/11/24 00:00 Oxygen Flow Rate (L/min) 2 Oxygen Delivery Method Room Air Weight: 190 lb 0.016 oz Body Mass Index (BMI) 32.5 Intake & Output: Intake and Output for Last 24 Hours 02/11/24 02/12/24 02/13/24 23:59 22:59 23:59 Intake Total 1200 / 1200 1070 / 1070 Balance 1200 / 1200 1070 / 1070 Lab / Micro Data 02/11/24 07:47 02/11/24 07:47 Micro: Microbiology 02/11/24 12:50 Urine, Catheterized Urine Culture - Final Culture exhibits no growth. Assessment & Plan Assessment/Plan (1) Wound of left lower extremity: PLAN: Post op day 5 from STSG. Unclear how much STSG has taken (VAC removed today). Xeroform twice daily for now to prevent desiccation. PSU will follow.
[2024-02-13 08:57] VITALS: BP 135/63; PULSE 74; RESP 16; TEMP 36.6; O2SAT 94
[2024-02-13] MEDS: Menthol/Lanolin/Calamine/Znox 113 GM Tube 1 APPLIC TOPICAL ×2 (08:59→22:34)
[2024-02-13] MEDS: Amiodarone 200 MG Tablet PO (08:59)
[2024-02-13] MEDS: Lactobacillis Acidophilus 1 CAP PO (08:59)
[2024-02-13] MEDS: DULoxetine Hcl 60 MG Capsule PO (09:00)
[2024-02-13] MEDS: APIXABAN 5 MG TABLET PO ×2 (09:00→22:34)
[2024-02-13] MEDS: Senna/Docusate Sodium 1 Tablet PO ×2 (09:00→22:33)
[2024-02-13] MEDS: Cholecalciferol (VIT D3) 25 MCG TABLET (1,000 UNITS) 50 MCG PO (09:00)
--- NOTE | 2024-02-13 10:07 | WOUNDNOTE ---
wound photo: left lower leg
[2024-02-13 15:02] VITALS: PULSE 77; RESP 17; O2SAT 95
[2024-02-13] MEDS: Mirtazapine 30 MG Tablet PO (22:33)
[2024-02-13] MEDS: Atorvastatin Calcium 20 MG Tablet PO (22:33)
--- NOTE | 2024-02-13 22:49 | NURSING ---
dressing change to LLE per order, patient tolerated well, minimal serosang drainage, no s/sx infection oberved at this time. Denies pain. Call light in reach.
[2024-02-14] MEDS: Levothyroxine 75 MCG Tablet PO (05:47)
[2024-02-14] MEDS: Nystatin Powder 15gm Bottle 1 APPLIC TOPICAL ×2 (05:50→22:02)
[2024-02-14] MEDS: DULoxetine Hcl 60 MG Capsule PO (08:43)
[2024-02-14] MEDS: Amiodarone 200 MG Tablet PO (08:43)
[2024-02-14] MEDS: APIXABAN 5 MG TABLET PO ×2 (08:43→22:03)
[2024-02-14] MEDS: Lactobacillis Acidophilus 1 CAP PO (08:43)
[2024-02-14] MEDS: Senna/Docusate Sodium 1 Tablet PO ×2 (08:43→22:03)
[2024-02-14] MEDS: Cholecalciferol (VIT D3) 25 MCG TABLET (1,000 UNITS) 50 MCG PO (08:43)
[2024-02-14] MEDS: Menthol/Lanolin/Calamine/Znox 113 GM Tube 1 APPLIC TOPICAL ×2 (08:45→22:03)
[2024-02-14 10:21] VITALS: BMI 32.3
--- NOTE | 2024-02-14 11:53 | MDS.RN ---
Information for the MDS was obtained from review of the clinical record, interview of resident, staff, and direct observation of resident?s care.
--- NOTE | 2024-02-14 14:00 | PCM.PN.SRG ---
Subjective Subjective Patient is doing well. She denies any complaints. Pain in controlled. She is walking with a walker. Objective Data Objective Data Left lower medial leg skin graft site shows good adherence. There is minimal drainage present. Vital Signs: Vital Signs Temp Pulse Resp BP Pulse Ox O2 Del Method O2 Flow Rate 97.8 F 77 17 135/63 H 95 Room Air 2 02/13/24 08:57 02/13/24 15:02 02/13/24 15:02 02/13/24 08:57 02/13/24 15:02 02/13/24 15:02 02/11/24 00:00 Oxygen Flow Rate (L/min) 2 Oxygen Delivery Method Room Air Weight: 188 lb 8 oz Body Mass Index (BMI) 32.3 Intake & Output: Intake and Output for Last 24 Hours 02/12/24 02/13/24 02/14/24 22:59 23:59 23:59 Intake Total 1070 / 1070 960 / 960 720 / 720 Balance 1070 / 1070 960 / 960 720 / 720 Lab / Micro Data 02/11/24 07:47 02/11/24 07:47 Micro: Microbiology 02/11/24 12:50 Urine, Catheterized Urine Culture - Final Culture exhibits no growth. Assessment & Plan Assessment/Plan (1) Wound of left lower extremity: PLAN: Plan Skin graft showing good adherence. Wound care is Xeroform gauze twice daily covered with ABD/Kerlix. Compression is MACY wrap. Encouraged keeping leg elevated when sitting to help prevent swelling. Upon discharge, she will follow up with either Dr. Enriquez or myself at the wound healing center. Charges/Coding Procedures Integumentary 111xxx-113xx: [id number] Global Visit
[2024-02-14 14:25] VITALS: BP 149/70; PULSE 76; RESP 10; TEMP 35.5; O2SAT 96
--- NOTE | 2024-02-14 15:03 | WOUNDNOTE ---
Taught daughter Danisha how to change the dressing to the left lower leg in preparation for discharge home. pt and daughter deny questions and daughter feels comfortable with dressing change. pt tolerated well.
[2024-02-14] MEDS: Mirtazapine 30 MG Tablet PO (22:03)
[2024-02-14] MEDS: Atorvastatin Calcium 20 MG Tablet PO (22:03)
[2024-02-15] MEDS: Levothyroxine 75 MCG Tablet PO (04:28)
[2024-02-15] MEDS: Nystatin Powder 15gm Bottle 1 APPLIC TOPICAL ×2 (04:29→21:57)
--- NOTE | 2024-02-15 04:30 | NURSING ---
Medications scheduled for 0600 administered at this time per resident request after toileting.
--- NOTE | 2024-02-15 09:14 | PCM.PROGNOTE ---
Subjective Subjective Pain controlled. Endorses good dressing changes by nursing Objective Data Objective Data Vital Signs: Vital Signs Temp Pulse Resp BP Pulse Ox O2 Del Method O2 Flow Rate 95.9 F L 76 10 L 149/70 H 96 Room Air 2 02/14/24 14:25 02/14/24 14:25 02/14/24 14:25 02/14/24 14:25 02/14/24 14:25 02/14/24 14:25 02/11/24 00:00 Oxygen Flow Rate (L/min) 2 Oxygen Delivery Method Room Air Weight: 188 lb 8 oz Body Mass Index (BMI) 32.3 Intake & Output: Intake and Output for Last 24 Hours 02/13/24 02/14/24 02/15/24 23:59 23:59 23:59 Intake Total 960 / 960 960 / 960 50 / 50 Balance 960 / 960 960 / 960 50 / 50 Lab / Micro Data 02/11/24 07:47 02/11/24 07:47 Micro: Microbiology 02/11/24 12:50 Urine, Catheterized Urine Culture - Final Culture exhibits no growth. Physical Exam Narrative Left lower extremity Healthy donor site (changed to XF). Healing well Leg STSG healing well, stuck down. Near 100% take Const alert and oriented x3 Assessment & Plan Assessment/Plan (1) Wound of left lower extremity: PLAN: Continue twice daily Xeroform dressing changes to the skin graft. Prevent shear forces. PSU to continue to follow. OK for DC from plastics standpoint with regards to the wound with F/u in the wound care center with me or in clinic with me. Charges/Coding Procedures Integumentary 111xxx-113xx: [id number] Global Visit
[2024-02-15 09:15] VITALS: BP 119/46; PULSE 71; RESP 18; TEMP 36.9; O2SAT 94
[2024-02-15] MEDS: Cholecalciferol (VIT D3) 25 MCG TABLET (1,000 UNITS) 50 MCG PO (09:17)
[2024-02-15] MEDS: Lactobacillis Acidophilus 1 CAP PO (09:17)
[2024-02-15] MEDS: DULoxetine Hcl 60 MG Capsule PO (09:17)
[2024-02-15] MEDS: Senna/Docusate Sodium 1 Tablet PO ×2 (09:17→21:57)
[2024-02-15] MEDS: Amiodarone 200 MG Tablet PO (09:17)
[2024-02-15] MEDS: APIXABAN 5 MG TABLET PO ×2 (09:17→21:57)
[2024-02-15] MEDS: Menthol/Lanolin/Calamine/Znox 113 GM Tube 1 APPLIC TOPICAL ×2 (09:19→22:00)
[2024-02-15] MEDS: Atorvastatin Calcium 20 MG Tablet PO (21:57)
[2024-02-15] MEDS: Mirtazapine 30 MG Tablet PO (21:57)
[2024-02-16] MEDS: Nystatin Powder 15gm Bottle 1 APPLIC TOPICAL ×2 (05:32→22:16)
[2024-02-16] MEDS: Levothyroxine 75 MCG Tablet PO (05:32)
[2024-02-16] MEDS: Senna/Docusate Sodium 1 Tablet PO (08:15)
[2024-02-16] MEDS: Cholecalciferol (VIT D3) 25 MCG TABLET (1,000 UNITS) 50 MCG PO (08:15)
[2024-02-16] MEDS: DULoxetine Hcl 60 MG Capsule PO (08:15)
[2024-02-16] MEDS: Lactobacillis Acidophilus 1 CAP PO (08:15)
[2024-02-16] MEDS: APIXABAN 5 MG TABLET PO ×2 (08:15→22:16)
[2024-02-16] MEDS: Amiodarone 200 MG Tablet PO (08:15)
[2024-02-16] MEDS: Menthol/Lanolin/Calamine/Znox 113 GM Tube 1 APPLIC TOPICAL (08:15)
[2024-02-16 08:40] VITALS: BP 136/66; PULSE 75; RESP 16; TEMP 36.6; O2SAT 93
[2024-02-16] MEDS: Acetaminophen 500 MG Tablet 1000 MG PO (13:37)
[2024-02-16] MEDS: Atorvastatin Calcium 20 MG Tablet PO (22:16)
[2024-02-16] MEDS: Mirtazapine 30 MG Tablet PO (22:16)
[2024-02-17] MEDS: Levothyroxine 75 MCG Tablet PO (05:27)
[2024-02-17] MEDS: Nystatin Powder 15gm Bottle 1 APPLIC TOPICAL ×2 (05:30→21:05)
[2024-02-17] MEDS: Amiodarone 200 MG Tablet PO (08:04)
[2024-02-17] MEDS: APIXABAN 5 MG TABLET PO ×2 (08:04→21:04)
[2024-02-17] MEDS: Cholecalciferol (VIT D3) 25 MCG TABLET (1,000 UNITS) 50 MCG PO (08:04)
[2024-02-17] MEDS: Senna/Docusate Sodium 1 Tablet PO ×2 (08:05→21:04)
[2024-02-17] MEDS: DULoxetine Hcl 60 MG Capsule PO (08:05)
[2024-02-17] MEDS: Menthol/Lanolin/Calamine/Znox 113 GM Tube 1 APPLIC TOPICAL ×2 (08:07→21:06)
[2024-02-17] MEDS: Lactobacillis Acidophilus 1 CAP PO (10:33)
--- NOTE | 2024-02-17 12:03 | CASEMGMT ---
Social Work Insurance issued LCD 02/18, DC 02/19. SW spoke with pt to inform pt of DC date, explained appeal rights. pt agreeable to DC. Dtr is moving into pt's house to assist with pt and her . SW inquired about skilled HHC. Pt used [facility] prior and requested to use at DC. No DME needs. Dtr to transport. Pt to notify dtr. SW sent referral to [facility] via [facility] for PT/OT/SN. Plan: DC home with and dtr 02/19, [facility] PT/OT/SN Taylor Ramon HAND FUNNEL COATER PRESS TENDER INCENDIARY GRENADE
[2024-02-17 13:36] VITALS: BP 131/57; PULSE 75; RESP 16; TEMP 36.3; O2SAT 96
--- NOTE | 2024-02-17 14:05 | DS.PCM_ITS ---
Providers Date of Admission: 02/03/24 Primary Care Physician: Dr. Mauricio Barney MD Consultations 02/03/24 20:32 Consult: Onc/Wound/budget consultant Routine Comment: Reason for Consult:: WOUND VAC LLE 02/03/24 20:36 Consult: Plastic Surgery Routine Consulting Provider: Pato Enriquez Reason for Consult: LLE cellulitis/abscess s/p debridment, wound VAC EMERGENT Consult: No MD Notified: Yes Date Notified: 02/06/24 Time Notified: 12:00 Method of Notification: Text Reason For Visit: CELLULITIS LLE Diagnosis Discharge Diagnosis (1) Wound of left lower extremity: Status: Acute Code(s): S81.802A - Unspecified open wound, left lower leg, initial encounter Plan 83 year old female with below past medical history hospitalized for left lower extremity cellulitis/abscess 2/2 dog scratch, underwent debridement/wound VAC placement 01/31/[address] Enriquez, admitted to TCU with debility, here for rehabilitation, strengthening, wound care, prior to discharge home. * Debility - PT/OT. * Pain - Tylenol 1000mg q6 prn pain (1-5), Tramadol 50mg q6 prn pain (6-10). * Bowel - senna/colace 1 tablet bid, Magnesium citrate 300mL po daily prn. * Adult immunization - Administer pneumonia vaccine, covid vaccine, flu vaccine as appropriate. * DVT prophylaxis - Lovenox 40mg sc daily. * Left lower extremity cellulitis/abscess s/p debridement - Flagyl 500mg tid x 6 days, Cipro 500mg bid x 6 days, Doxycycline 100mg bid x 6 days, consult Dr. Enriquez to follow. * Hypothyroidism - Levothyroxine 75mcg daily. * Atrial Fibrillation - Amiodarone 200mg daily, Eliquis 5mg bid. * Vitamin D deficiency - D3 25mcg daily. 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 * GI prophylaxis - Acidophilus 1 capsule daily * Recurrent UTI - Azo D-Mannose 1000mg bid. * Appetite loss/insomnia - Mirtazapine 30mg qhs, stable chronic [facility] use, GDR not recommended. * RA - Hold Simponi Aria while on TCU. * Hyperlipidemia - Atorvastatin 20mg qhs. Medications at Discharge Home Medications handicap placcard #1 ea 05/07/20 levothyroxine 75 mcg tablet 75 mcg PO DAILY thyroid 02/05/21 atorvastatin 20 mg tablet 20 mg PO QHS cholesterol #90 tabs 09/25/21 apixaban 5 mg tablet (Eliquis) 5 mg PO BID blood thinner 04/27/22 cholecalciferol (vitamin D3) 25 mcg (1,000 unit) tablet 50 mcg (2 x 25 mcg (1,000 unit)) PO DAILY suppliment #0 tabs 02/21/23 L.acidophil,salivari-Bifido bifidum-Strep thermoph 175 mg capsule (Acidophilus Probiotic Blend) 1 cap PO DAILY gut health 01/29/24 amiodarone 200 mg tablet 200 mg PO DAILY heart 01/29/24 duloxetine 60 mg capsule,delayed release 60 mg PO DAILY mood 01/29/24 mirtazapine 15 mg tablet 30 mg PO QHS mood 01/29/24 golimumab 12.5 mg/mL intravenous solution (Simponi ARIA) See Rx Instructions IV .COMPLEX arthritis 01/31/24 acetaminophen 500 mg tablet 1,000 mg (2 x 500 mg) PO Q6H PRN PRN Pain Score 1-5 #0 tabs 02/17/24 Hospital Course Operations - (See below.) Procedures None Summary of Care Provided Minutes Spent on Discharge: 35 Hospital Course: 83 year old female with below past medical history hospitalized for left lower extremity cellulitis/abscess 2/2 dog scratch, underwent debridement/wound VAC placement 01/31/[address] Enriquez, admitted to TCU with debility, here for rehabilitation, strengthening, wound care, prior to discharge home. Dr. Enriquez performed 1) Sharp excision left lower extremity wound, 8 x 5.5 cm (CPT 48856) 2) Split-thickness skin grafting with graft from left thigh, 8 x 5.5 cm (59867) Discharge home with and daughter 02/20/2024, N [facility] PT/OT/SN. Physical Exam Const alert General Appearance: cooperative HEENT normocephalic Eyes PERRL and EOMs intact bilaterally Neck supple, no JVD and no carotid bruits Resp normal respiratory effort, normal air movement and clear to auscultation bilaterally Cardio regular rate and regular rhythm GI normal to inspection, nondistended, normoactive bowel sounds, non-tender and non-distended Extremity normal capillary refill General Extremity: Negative for edema Skin no rashes or lesions noted General Skin Exam: no breakdown Psych affect normal Appearance: appropriate Weight / BMI Weight Weight: 85.502 kg Body Mass Index (BMI) 32.3 ABG / Lab / Microbiology Data 02/11/24 07:47 02/11/24 07:47 Microbiology: Microbiology 02/11/24 12:50 Urine, Catheterized Urine Culture - Final Culture exhibits no growth. D/C Instructions Discharge Diet: No restrictions Discharge Activity: Return to Normal Activity, May Shower and Use Walker Weight Bearing Status: Weight bearing as tolerated Call your doctor if you observe: Fever of 101 or Higher, Inability to urinate, Inability to have a bowel movement, Shortness of breath, Dizziness, Fainting spells, Swelling in the ankles, Chest pain and Uncontrolled pain Additional Instructions: Discharge home with and daughter 02/20/2024, [facility] PT/OT/SN. Meaningful Use Info Meaningful Use Meaningful Use Diagnoses (Choose all that apply): None applicable Ischemic Stroke Statin Dosing Therapy Reference: STATIN DOSE THERAPY REFERENCE: * Patients > 75 years receive moderate or high dose statin therapy. * Patients 75 years or YOUNGER should receive HIGH intensity statin dose unless contraindicated. You will be required to document reason for non-treatment if statin daily dose does not meet guidelines. HIGH DOSE STATIN THERAPY DAILY Atorvastatin > than or = to 40 mg Rosuvastatin > than or = to 20 mg Amlodipine + Atorvastatin > than or = to 2.5/40 mg Ezetimibe + Simvastatin 10/80 mg Simvastatin 80mg Discharge Plan Admission Admit Date/Time: 02/03/24 19:45 Primary Reason for Your Visit: Debility. Attending Provider: Mac Jaimes Chi Primary Care Provider: Maurciio Barney Consulting Providers: Pato Enriquez Instructions Additional Instructions / Restrictions: Discharge home with and daughter 02/20/2024, [facility] PT/OT/SN. Discharge Orders/Prescriptions Prescriptions: New acetaminophen 500 mg Tablet 1,000 mg PO Q6H PRN PRN (Reason: Pain Score 1-5) Qty: 0 0RF Continued levothyroxine 75 mcg tablet 75 mcg PO DAILY Eliquis 5 mg Tablet 5 mg PO BID cholecalciferol (vitamin D3) 25 mcg (1,000 unit) Tablet 50 mcg PO DAILY Qty: 0 0RF amiodarone 200 mg tablet 200 mg PO DAILY duloxetine 60 mg capsule,delayed release(DR/EC) 60 mg PO DAILY L.acidoph,saliva-B.bif-S.therm [Acidophilus Probiotic Blend] 175 mg capsule 1 cap PO DAILY mirtazapine 15 mg Tablet 30 mg PO QHS Simponi ARIA 12.5 mg/mL solution See Rx Instructions IV .COMPLEX Patient Comments: INFUSE 2MG/KG IV EVERY 8 WEEKS Rx Instructions: intravenously every 8 weeks; atorvastatin 20 mg tablet 20 mg PO QHS Qty: 90 3RF Discontinued acetaminophen 500 mg Tablet 1,000 mg PO Q6H PRN PRN (Reason: Pain Score 1-5) Qty: 0 0RF docusate sodium [Colace] 100 mg capsule 100 mg PO QHS AZO D-Mannose 500 mg capsule 1,000 mg PO BID metronidazole 500 mg Tablet 500 mg PO TID 6 Days Qty: 0 0RF ciprofloxacin HCl 500 mg Tablet 500 mg PO BID 6 Days Qty: 0 0RF doxycycline monohydrate 100 mg Capsule 100 mg PO BID 6 Days Qty: 0 0RF No Action (DME) handicap placcard See Rx Instructions .Route .MEDSUPPLY Qty: 1 0RF Rx Instructions: dx: severe OA expires: 5 years Referrals / Follow Up: Mauricio Barney MD [Primary Care Provider] - (daughter to make appt) Disposition Disposition (needs filled in before D/C Order can be placed): Home Health Service
--- NOTE | 2024-02-17 15:11 | PCM.PN.SRG ---
Subjective Subjective Patient is doing well. She is denying any complaints. She states she is to be discharged home on Tuesday. Her will be discharged home on Tuesday (they both are in TCU). She is up walking with a walker. Objective Data Objective Data Vital Signs: Vital Signs Temp Pulse Resp BP Pulse Ox O2 Del Method O2 Flow Rate 97.4 F L 75 16 131/57 H 96 Room Air 2 02/17/24 13:36 02/17/24 13:36 02/17/24 13:36 02/17/24 13:36 02/17/24 13:36 02/17/24 13:36 02/11/24 00:00 Oxygen Flow Rate (L/min) 2 Oxygen Delivery Method Room Air Weight: 188 lb 8 oz Body Mass Index (BMI) 32.3 Intake & Output: Intake and Output for Last 24 Hours 02/15/24 02/16/24 02/17/24 23:59 23:59 23:59 Intake Total 1160 / 1160 960 / 960 480 / 480 Balance 1160 / 1160 960 / 960 480 / 480 Lab / Micro Data 02/11/24 07:47 02/11/24 07:47 Micro: Microbiology 02/11/24 12:50 Urine, Catheterized Urine Culture - Final Culture exhibits no growth. Physical Exam Narrative Left lower leg skin graft is healing well. It shows good adherence with 100% take and good vascular ingrowth. Left thigh donor site is healing well, nice beefy pink color. Const alert and oriented x3 General Appearance: cooperative Eyes General Eye: normal appearance of both eyes Resp normal respiratory effort Effort and Inspection: able to speak in complete sentences Assessment & Plan Assessment/Plan (1) Abscess of left lower extremity: PLAN: Plan Continue Xeroform gauze dressing changes twice daily to both the skin graft and the donor site, cover with ABD. Instructed to prevent any shear forces to the skin graft. She is supposed to be discharged home on Tuesday. She will follow up with Dr. Enriquez at the wound center on 02/27/24. Charges/Coding Procedures Integumentary 111xxx-113xx: 69004 Global Visit
[2024-02-17] MEDS: Mirtazapine 30 MG Tablet PO (21:04)
[2024-02-17] MEDS: Atorvastatin Calcium 20 MG Tablet PO (21:04)
--- NOTE | 2024-02-17 22:55 | NURSING ---
Dressings changed to graft site and wound site. Patient tolerated well. No s/s infection. Will continue to monitor.
[2024-02-18] MEDS: Levothyroxine 75 MCG Tablet PO (06:10)
[2024-02-18] MEDS: Nystatin Powder 15gm Bottle 1 APPLIC TOPICAL ×2 (06:11→22:32)
[2024-02-18 06:59] LABS: Absolute Lymphocyte Count 1.62 X10^3/uL (0.83-4.51); Absolute Neutrophil Count 3.4 X10^3/uL (2.0-7.7); Basophil# 0.05 X10^3/uL; Basophil% 0.8 % (0-1); Eosinophil# 0.41 X10^3/uL; Eosinophils% 6.3 % (0-5); Hematocrit 37.8 % (37-47); Hemoglobin 11.9 g/dL (12.0-15.0); Lymphocyte # 1.62 X10^3/ul (0.83-4.51); Mean Corp Hgb Conc 31.5 g/dL (32-36); Mean Corpuscular Hgb 30.4 pg (27.0-32.0); Mean Corpuscular Volume 96.7 fL (81-99); Mean Platelet Vol. 9.5 fl (6.2-12.0); Monocyte# 0.95 X10^3/uL; Monocyte% 14.6 % (0-10); NRBC Flagged by Analyzer 0 % (0-5); Neutrophil # 3.42 X10^3/uL (2.7-7.7); Neutrophil % 52.7 % (47-70); Platelet Count 333 K/mm3 (150-450); RBC Distribution Width CV 13.2 % (11.6-14.6); RBC Distribution Width SD 47.4 fl (35.1-43.9); Red Blood Count 3.91 M/mm3 (4.2-5.4); White Blood Count 6.5 K/mm3 (4.4-11.0)
[2024-02-18 07:37] LABS: Anion Gap 4 (5-15); BUN 24 mg/dL (7-18); BUN/Creat Ratio 25.6 RATIO (10-20); Calcium,Total 9.3 mg/dL (8.5-10.1); Chloride 107 mmol/L (98-107); Creatinine, Serum 0.94 mg/dL (0.55-1.02); EST Glomerular Filtration Rate 61 mL/min (>60); Est Glom Filt Rate - Afr Amer 73 mL/min (>60); Estimated Creatinine Clearance 48.82 ml/min; Glucose 97 mg/dL (74-106); Potassium 4.7 mmol/L (3.5-5.1); Sodium Level 139 mmol/L (136-145)
[2024-02-18] MEDS: Amiodarone 200 MG Tablet PO (08:46)
[2024-02-18] MEDS: Cholecalciferol (VIT D3) 25 MCG TABLET (1,000 UNITS) 50 MCG PO (08:46)
[2024-02-18] MEDS: Lactobacillis Acidophilus 1 CAP PO (08:46)
[2024-02-18] MEDS: Menthol/Lanolin/Calamine/Znox 113 GM Tube 1 APPLIC TOPICAL ×2 (08:46→22:31)
[2024-02-18] MEDS: Senna/Docusate Sodium 1 Tablet PO ×2 (08:46→22:32)
[2024-02-18] MEDS: DULoxetine Hcl 60 MG Capsule PO (08:46)
[2024-02-18] MEDS: APIXABAN 5 MG TABLET PO ×2 (08:46→22:32)
[2024-02-18 11:06] VITALS: BP 128/68; PULSE 81; RESP 16; TEMP 36.5; O2SAT 95
[2024-02-18] MEDS: Mirtazapine 30 MG Tablet PO (22:31)
[2024-02-18] MEDS: Atorvastatin Calcium 20 MG Tablet PO (22:32)
[2024-02-19] MEDS: Nystatin Powder 15gm Bottle 1 APPLIC TOPICAL ×2 (06:16→21:33)
[2024-02-19] MEDS: Levothyroxine 75 MCG Tablet PO (06:16)
[2024-02-19] MEDS: Amiodarone 200 MG Tablet PO (09:19)
[2024-02-19] MEDS: Lactobacillis Acidophilus 1 CAP PO (09:20)
[2024-02-19] MEDS: DULoxetine Hcl 60 MG Capsule PO (09:20)
[2024-02-19] MEDS: Menthol/Lanolin/Calamine/Znox 113 GM Tube 1 APPLIC TOPICAL ×2 (09:20→21:31)
[2024-02-19] MEDS: APIXABAN 5 MG TABLET PO ×2 (09:20→21:32)
[2024-02-19] MEDS: Cholecalciferol (VIT D3) 25 MCG TABLET (1,000 UNITS) 50 MCG PO (09:21)
[2024-02-19] MEDS: Senna/Docusate Sodium 1 Tablet PO ×2 (09:21→21:33)
[2024-02-19 09:24] VITALS: BP 138/64; PULSE 70; O2SAT 96
[2024-02-19 10:45] VITALS: PULSE 81; RESP 18; O2SAT 96
[2024-02-19 13:20] VITALS: TEMP 36.3
[2024-02-19] MEDS: Acetaminophen 500 MG Tablet 1000 MG PO (21:30)
[2024-02-19] MEDS: Mirtazapine 30 MG Tablet PO (21:32)
[2024-02-19] MEDS: Atorvastatin Calcium 20 MG Tablet PO (21:32)
[2024-02-20] MEDS: Levothyroxine 75 MCG Tablet PO (06:02)
[2024-02-20] MEDS: Nystatin Powder 15gm Bottle 1 APPLIC TOPICAL (06:03)
[2024-02-20] MEDS: Lactobacillis Acidophilus 1 CAP PO (08:08)
[2024-02-20] MEDS: Amiodarone 200 MG Tablet PO (08:08)
[2024-02-20] MEDS: Senna/Docusate Sodium 1 Tablet PO (08:08)
[2024-02-20] MEDS: APIXABAN 5 MG TABLET PO (08:08)
[2024-02-20] MEDS: Cholecalciferol (VIT D3) 25 MCG TABLET (1,000 UNITS) 50 MCG PO (08:08)
[2024-02-20] MEDS: DULoxetine Hcl 60 MG Capsule PO (08:09)
[2024-02-20] MEDS: Menthol/Lanolin/Calamine/Znox 113 GM Tube 1 APPLIC TOPICAL (08:09)
--- NOTE | 2024-02-20 11:30 | CASEMGMT ---
Social Work SW completed BIMS () and PHQ-2 () for MDS assessment. Taylor Ramon MSW LAWYER
[2024-02-20 12:06] VITALS: BP 128/63; PULSE 63; RESP 16; TEMP 36.6; O2SAT 95
== END 2024-02-20 13:02 | disposition home health service (06) | DRG 603 ==
PROVIDERS: Admitting Provider Family Medicine Geriatric Medicine; PCP Family Medicine; Referring Provider Family Medicine Geriatric Medicine; Visit Provider Family Medicine Geriatric Medicine
DX: L03.116 Cellulitis of left lower limb (principal); E03.9 Hypothyroidism, unspecified; M06.9 Rheumatoid arthritis, unspecified; F32.A Depression, unspecified; I48.0 Paroxysmal atrial fibrillation; E78.00 Pure hypercholesterolemia, unspecified; E55.9 Vitamin D deficiency, unspecified; S80.812D Abrasion, left lower leg, subsequent encounter; L02.416 Cutaneous abscess of left lower limb; Z79.01 Long term (current) use of anticoagulants; X58.XXXD Exposure to other specified factors, subsequent encounter; Z86.718 Personal history of other venous thrombosis and embolism; Z79.899 Other long term (current) drug therapy; Z79.890 Hormone replacement therapy; Z86.14 Personal history of Methicillin resistant Staphylococcus aureus infection
CPT/HCPCS: 36415; 80048; 80061; 81001; 82306; 85025; 87086; 97110; 97116; 97162; 97166; 97530; 97535; 97802; A4216

== ENCOUNTER 2024-02-08 11:10 | Day surgery (SDC) | payer MEDICARE, SELFPAY ==
[2024-02-08] VITALS (8 sets, daily range): BP systolic 107–141; BP diastolic 51–89; PULSE 65–75; RESP 16–18; TEMP 36.4–36.9; O2SAT 96–100; BMI 32.5
--- NOTE | 2024-02-08 11:35 | PRE.ANES_ITS ---
ASA Classification* ASA Classification ASA Classification: 3 (SEE WRITTEN PRE ANESTHESIA RECORD FOR FULL ASSESSMENT) Assessment & Plan Anesthesia* Anesthesia Assessment Anesthesia Assessment: Discussed sedation and/or anesthesia options, risks, benefits, and alternatives with patient/parents/legal guardian/POA. Questions invited. The patient/parents/legal guardian/POA seems to understand and agrees to proceed with anesthesia plan. Reviewed the physical assessment, medical history, allergy history and patient home medications list prior to surgery/procedure/anesthetic and documented any changes. Performed airway and anesthesia risk assessments. Anesthesia Type Anesthesia Type: MAC (SEE WRITTEN PRE ANESTHESIA RECORD FOR FULL ASSESSMENT) Anesthesia Focused Assessment* Temperature: 97.5 F Pulse Rate: 72 Blood Pressure: 133/56 Respiratory Rate: 16 Pulse Ox: 96 Airway Assessment Mouth opens: >3 cm Mallampati Score: II Focused Labs Anesthesia Preop lab: CBC WBC 5.5 K/mm3 (4.4-11.0) 02/07/24 07:29 RBC 3.62 M/mm3 (4.2-5.4) L 02/07/24 07:29 Hgb 11.3 g/dL (12.0-15.0) L 02/07/24 07:29 Hct 34.9 % (37-47) L 02/07/24 07:29 Plt Count 268 K/mm3 (150-450) 02/07/24 07:29 CHEMISTRY Potassium 4.1 mmol/L (3.5-5.1) 02/07/24 07:29 Sodium 140 mmol/L (136-145) 02/07/24 07: Magnesium 1.9 mg/dL (1.6-2.6) 07/12/17 06:46 BUN 23 mg/dL (7-18) H 02/07/24 07:29 Creatinine 0.92 mg/dL (0.55-1.02) 02/07/24 07:29 Glucose 108 mg/dL (74-106) H 02/07/24 07:29 POC Glucose 128 mg/dL (70-110) H 04/16/18 15:23 TSH 6.380 uIU/mL (0.358-3.740) H 01/31/24 05:22 COAG PT 14.1 SECONDS (11.7-14.9) 01/31/24 05:22 Pre-Assessment Diagnosis/Proposed Procedure Planned Operative Procedure(s): SPLIT THICKNESS SKIN GRAFT, LEFT THIGH TO LEFT LEG Anesthesia History 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 When Was Last Pacemaker Check QUESTION #4 FULL TEXT: You/Your Family Experience fever (hyperthermia) with Anesthesia Last Oral Intake Last Oral intake: Last Oral Intake NPO since 08:30 02/08/24 11:24 Meds taken in AM with sips of Yes 02/08/24 11:24 water? 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 Female Yes 02/07/24 15:19 HX of Motion Sickness No 02/07/24 15:19 HX of N/V After Surgery Yes 02/07/24 15:19 Non-Smoker Yes 02/07/24 15:19 Duration of Surgery greater Yes 02/07/24 15:19 than 60 minutes Number of Risk Factors 4 02/07/24 15:19 PONV Score Severe Risk 02/07/24 15:19 Height & Weight Height & Weight: Anesthesia: Height & Weight Height 5 ft 4 in 02/08/24 11:24 Weight: 86.183 kg 02/08/24 11:24 Body Mass Index (BMI) 32.5 02/08/24 11:24 Respiratory Assessment Respiratory Assessment - silk top hat body maker: Respiratory Tract Infection Hx - silk top hat body maker Hx Respiratory Tract Infection No 02/07/24 15:19 STOP Sleep Apnea STOP Sleep Apnea - silk top hat body maker: STOP Sleep Apnea - silk top hat body maker Hx Hypertension Yes 02/07/24 15:19 Hx Sleep Apnea No 02/07/24 15:19 CPAP No 02/07/24 15:19 BIPAP No 02/07/24 15:19 Do you snore loudly (louder No 02/07/24 15:19 than talking or can be heard Do you often feel tired/ No 02/07/24 15:19 fatigued/ sleepy during daytime? Has anyone observed you stop No 02/07/24 15:19 breathing during sleep? STOP Results Negative 02/07/24 15:19 QUESTION #5 FULL TEXT : Do you snore loudly (louder than talking or can be heard through closed doors)? 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 Specify any problems Hx of Preganancy in last 3 N/A 02/07/24 15:19 Months Nurse Filling Out Transfusion NBUCHER 02/07/24 15:19 & Questions: Date: 02/07/24 02/07/24 15:19 Time: 15:20 02/07/24 15:19 Patient unable to answer at this time (ie. 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 body maker: /Reproductive Hx- silk top hat body maker Hx Now Gestational Age (in weeks): EDC: Hx Hx Para Hx Section SAB No 02/07/24 15:19 Active Medications Active Medications: Current Medications Generic Name Dose Route Start Last Admin Trade Name Freq PRN Reason Stop Dose Admin Cefazolin Sodium 2 gm/ N/A 20 mls @ 400 mls/hr 02/08/24 12:30 IV 02/08/24 12:32 PREOP ONE [facility] Medical History Wears hearing aid Loss of hearing Wears glasses Wears partial dentures Cancer Open wound Thyroid disease Walker as ambulation aid High cholesterol Non-smoker History of stress test History of echocardiogram History of pacemaker Cardiology follow-up encounter Pacemaker Open wound of right buttock with complication Traumatic hematoma of buttock Hematoma of right lower extremity Depression Vitamin D deficiency Gastrointestinal bleed Rheumatoid arthritis Hypothyroidism Compression fracture of L3 vertebra Acute blood loss anemia GI bleed Peptic ulcer disease 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 DVT (deep venous thrombosis) Cellulitis of left lower extremity Hyperlipidemia Paroxysmal atrial fibrillation History of Clostridium difficile Home Medications ?Medication ?Instructions ?Recorded ?Last Taken ?Type handicap placcard #1 ea 05/07/20 Unknown Rx levothyroxine 75 mcg tablet 75 mcg PO DAILY thyroid 02/05/21 Unknown History atorvastatin 20 mg tablet 20 mg PO QHS cholesterol #90 tabs 09/25/21 02/02/24 Rx apixaban 5 mg tablet (Eliquis) 5 mg PO BID blood thinner 04/27/22 02/07/24 History acetaminophen 500 mg tablet 1,000 mg (2 x 500 mg) PO Q6H PRN 02/21/23 02/02/24 Rx PRN Pain Score 1-5 #0 tabs cholecalciferol (vitamin D3) 25 50 mcg (2 x 25 mcg (1,000 unit)) 02/21/23 Unknown Rx mcg (1,000 unit) tablet PO DAILY suppliment #0 tabs L.acidophil,salivari-Bifido 1 cap PO DAILY gut health 01/29/24 02/03/24 History bifidum-Strep thermoph 175 mg capsule (Acidophilus Probiotic Blend) amiodarone 200 mg tablet 200 mg PO DAILY heart 01/29/24 02/08/24 History d-mannose 500 mg capsule (AZO 1,000 mg PO BID uti 01/29/24 Unknown History D-Mannose) docusate sodium 100 mg capsule 100 mg PO QHS stool softener 01/29/24 02/02/24 History (Colace) duloxetine 60 mg capsule,delayed 60 mg PO DAILY mood 01/29/24 02/03/24 History release mirtazapine 15 mg tablet 30 mg PO QHS mood 01/29/24 02/02/24 History golimumab 12.5 mg/mL intravenous See Rx Instructions IV .COMPLEX 01/31/24 12/07/23 History solution (Simponi ARIA) arthritis ciprofloxacin HCl 500 mg tablet 500 mg PO BID antibiotic 6 days #0 02/03/24 Unknown Rx tabs doxycycline monohydrate 100 mg 100 mg PO BID antibiotic 6 days #0 02/03/24 Unknown Rx capsule caps metronidazole 500 mg tablet 500 mg PO TID antibiotic 6 days #0 02/03/24 02/03/24 Rx tabs Allergy/AdvReac Type Severity Reaction Status Date / Time cephalexin monohydrate (From Allergy Hives Verified 02/08/24 11:24 Keflex) ethchlorvynol (From Placidyl) Allergy Unknown Verified 02/08/24 11:24 Penicillins (PCN) Allergy Unknown Verified 02/08/24 11:24 Sulfa (Sulfonamide Allergy Rash Verified 02/08/24 11:24 Antibiotics) sulfamethoxazole (From Allergy Unknown Verified 02/08/24 11:24 Septra) trimethoprim (From Septra) Allergy Unknown Verified 02/08/24 11:24 Family History Father CAD (coronary artery disease) Mother Breast cancer breast Surgical History History of appendectomy History of evacuation of hematoma (03/20/18) History of right knee joint replacement History of bunionectomy of both great toes H/O shoulder surgery History of arthroplasty of left knee H/O total hysterectomy H/O colectomy Hx of cholecystectomy History of tonsillectomy and adenoidectomy History of left heart catheterization (1999) surgical debridement left lower extremity (10/2014) Social History household members: spouse Smoking Status: Never smoker alcohol intake: current alcohol intake frequency: holidays/special occasions only Alcohol type: wine substance use type: does not use caffeine: Yes Type: coffee Number of servings: 2 Review of Systems (Anesthesia) ROS Narrative System reviewed and no additional complaints, except as documented.
--- NOTE | 2024-02-08 12:06 | HP.PCM.SX_ITS ---
HPI - General HPI Narrative BRADLEY GILMORE, is a 83 F who presents with a left lower extremity wound. Current Encounter (DATE OF SURGERY H&P UPDATE): I saw and examined the patient this morning in pre-operative holding. We discussed risks and benefits of today's surgery and they would like to proceed. NO CHANGE in health history since last seen and evaluated. Ready to proceed with surgery. [facility] Medical History Wears hearing aid Loss of hearing Wears glasses Wears partial dentures Cancer Open wound Thyroid disease Walker as ambulation aid High cholesterol Non-smoker History of stress test History of echocardiogram History of pacemaker Cardiology follow-up encounter Pacemaker Open wound of right buttock with complication Traumatic hematoma of buttock Hematoma of right lower extremity Depression Vitamin D deficiency Gastrointestinal bleed Rheumatoid arthritis Hypothyroidism Compression fracture of L3 vertebra Acute blood loss anemia GI bleed Peptic ulcer disease 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 DVT (deep venous thrombosis) Cellulitis of left lower extremity Hyperlipidemia Paroxysmal atrial fibrillation History of Clostridium difficile Home Medications ?Medication ?Instructions ?Recorded ?Last Taken ?Type handicap placcard #1 ea 05/07/20 Unknown Rx levothyroxine 75 mcg tablet 75 mcg PO DAILY thyroid 02/05/21 Unknown History atorvastatin 20 mg tablet 20 mg PO QHS cholesterol #90 tabs 09/25/21 02/02/24 Rx apixaban 5 mg tablet (Eliquis) 5 mg PO BID blood thinner 04/27/22 02/07/24 History acetaminophen 500 mg tablet 1,000 mg (2 x 500 mg) PO Q6H PRN 02/21/23 02/02/24 Rx PRN Pain Score 1-5 #0 tabs cholecalciferol (vitamin D3) 25 50 mcg (2 x 25 mcg (1,000 unit)) 02/21/23 Unknown Rx mcg (1,000 unit) tablet PO DAILY suppliment #0 tabs L.acidophil,salivari-Bifido 1 cap PO DAILY gut health 01/29/24 02/03/24 History bifidum-Strep thermoph 175 mg capsule (Acidophilus Probiotic Blend) amiodarone 200 mg tablet 200 mg PO DAILY heart 01/29/24 02/08/24 History d-mannose 500 mg capsule (AZO 1,000 mg PO BID uti 01/29/24 Unknown History D-Mannose) docusate sodium 100 mg capsule 100 mg PO QHS stool softener 01/29/24 02/02/24 History (Colace) duloxetine 60 mg capsule,delayed 60 mg PO DAILY mood 01/29/24 02/03/24 History release mirtazapine 15 mg tablet 30 mg PO QHS mood 01/29/24 02/02/24 History golimumab 12.5 mg/mL intravenous See Rx Instructions IV .COMPLEX 01/31/24 12/07/23 History solution (Simponi ARIA) arthritis ciprofloxacin HCl 500 mg tablet 500 mg PO BID antibiotic 6 days #0 02/03/24 Unknown Rx tabs doxycycline monohydrate 100 mg 100 mg PO BID antibiotic 6 days #0 02/03/24 Unknown Rx capsule caps metronidazole 500 mg tablet 500 mg PO TID antibiotic 6 days #0 02/03/24 02/03/24 Rx tabs Allergy/AdvReac Type Severity Reaction Status Date / Time cephalexin monohydrate (From Allergy Hives Verified 02/08/24 11:24 Keflex) ethchlorvynol (From Placidyl) Allergy Unknown Verified 02/08/24 11:24 Penicillins (PCN) Allergy Unknown Verified 02/08/24 11:24 Sulfa (Sulfonamide Allergy Rash Verified 02/08/24 11:24 Antibiotics) sulfamethoxazole (From Allergy Unknown Verified 02/08/24 11:24 Septra) trimethoprim (From Septra) Allergy Unknown Verified 02/08/24 11:24 Family History Father CAD (coronary artery disease) Mother Breast cancer breast Surgical History History of appendectomy History of evacuation of hematoma (03/20/18) History of right knee joint replacement History of bunionectomy of both great toes H/O shoulder surgery History of arthroplasty of left knee H/O total hysterectomy H/O colectomy Hx of cholecystectomy History of tonsillectomy and adenoidectomy History of left heart catheterization (1999) surgical debridement left lower extremity (10/2014) Social History household members: spouse Smoking Status: Never smoker alcohol intake: current alcohol intake frequency: holidays/special occasions only Alcohol type: wine substance use type: does not use caffeine: Yes Type: coffee Number of servings: 2 Vital Signs Vital Signs Vital Signs: 02/08/24 11:24 02/08/24 11:35 Temperature 97.5 F L 97.5 F L Temperature Source Temporal Pulse Rate 72 72 Respiratory Rate 16 16 Blood Pressure 133/56 H 133/56 H Blood Pressure Mean 81 Blood Pressure Source Monitor Blood Pressure Position Semi-Fowlers Blood Pressure Location Right Arm Pulse Ox 96 96 Oxygen Delivery Method Room Air Weight Weight: 190 lb Body Mass Index (BMI) 32.5 Physical Exam Narrative Left lower extremity wound with VAC in place, holding suction. Assessment & Plan Assessment/Plan (1) Wound of left lower extremity: PLAN: I talked the patient extensively about the risks of surgery, including bleeding, infection, damage to surrounding structures, surgical site dehiscence and wound formation, need for wound care, need for repeat operations, failure to obtain the desired result (FAILURE OF THE SKIN GRAFT TO TAKE), DVT/PE, and the risks of anesthesia including . The benefits and alternatives of this surgery were also discussed. All of their questions were answered, and they agreed to proceed with surgery. INTERVAL H&P PLAN, DATE OF SURGERY: We will proceed with surgery today. We will debride wound and place a STSG from left thigh to left leg wound.
[2024-02-08] MEDS: Cefazolin 2 GM in Syringe IV (12:50)
[2024-02-08] MEDS: Lidocaine 1%/Epi 1:200 (30ml) 30 ML AMPUL (13:27)
[2024-02-08] MEDS: Bupiv/Epi 0.25% 30 ML Vial INFILT (13:27)
[2024-02-08] MEDS: Epinephrine (1 mg/ml) 1 MG/ML VIAL (13:27)
[2024-02-08] MEDS: Mineral Oil, Light Sterile 10 ML Vial MC (13:35)
--- NOTE | 2024-02-08 13:52 | PCM.POST.ANE ---
Anesthesia: Postop Eval I Current Vital Signs Temperature: 98.5 F Pulse Rate: 75 Blood Pressure: 107/89 Respiratory Rate: 18 Pulse Ox: 96 Oxygen Delivery Method: Room Air Assessment Airway patent: Yes Spontaneous unlabored respirations: Yes Mental status: Awake and Calm nausea: No Vomiting: No Anesthesia Complication: No Fluid Hydration Crystalloid volume administer (ml): 10 Total IV fluid infused: 10 Progress Note Anesthesia document: Postop Eval 1 completed: Yes
--- NOTE | 2024-02-08 14:36 | POSTOPAN2_ITS ---
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 Spontaneous unlabored Yes 02/08/24 14:15 COMMUNITY HEALTH COORDINATOR.SCHR respirations Mental status Awake,Calm 02/08/24 14:15 COMMUNITY HEALTH COORDINATOR.SCHR nausea No 02/08/24 14:15 COMMUNITY HEALTH COORDINATOR.SCHR Vomiting No 02/08/24 14:15 COMMUNITY HEALTH COORDINATOR.SCHR Anesthesia Postop Eval I: Fluid Summary Crystalloid volume administer 10 02/08/24 14:15 COMMUNITY HEALTH COORDINATOR.SCHR (ml) Colloids volume administered ( ml) Blood Product volume administered (ml) Total IV fluid infused 10 02/08/24 14:15 COMMUNITY HEALTH COORDINATOR.SCHR Anesthesia Postop Eval I: Summary Notes Anesthesia Complication No 02/08/24 14:15 COMMUNITY HEALTH COORDINATOR.SCHR Anesthesia Complication Comment: Post-operative progress note Anesthesia: Postop Eval II Evaluation Mental status: Awake Pain Level: 0 nausea: No Vomiting: No
--- NOTE | 2024-02-08 14:36 | PCM.POSTANE2 ---
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 Spontaneous unlabored Yes 02/08/24 14:15 COIN MACHINE COLLECTOR SUPERVISOR.SCHR respirations Mental status Awake,Calm 02/08/24 14:15 COIN MACHINE COLLECTOR SUPERVISOR.SCHR nausea No 02/08/24 14:15 COIN MACHINE COLLECTOR SUPERVISOR.SCHR Vomiting No 02/08/24 14:15 COIN MACHINE COLLECTOR SUPERVISOR.SCHR Anesthesia Postop Eval I: Fluid Summary Crystalloid volume administer 10 02/08/24 14:15 COIN MACHINE COLLECTOR SUPERVISOR.SCHR (ml) Colloids volume administered ( ml) Blood Product volume administered (ml) Total IV fluid infused 10 02/08/24 14:15 COIN MACHINE COLLECTOR SUPERVISOR.SCHR Anesthesia Postop Eval I: Summary Notes Anesthesia Complication No 02/08/24 14:15 COIN MACHINE COLLECTOR SUPERVISOR.SCHR Anesthesia Complication Comment: Post-operative progress note Anesthesia: Postop Eval II Evaluation Mental status: Awake Pain Level: 0 nausea: No Vomiting: No
--- NOTE | 2024-02-08 14:59 | SUR.PHASEII ---
PT REPORT CALLED TO KEMAL ON TCU.
--- NOTE | 2024-02-08 15:01 | OP.PCM_ITS ---
Operative Report (Standard) Operative Information Surgery/Procedure Performed: 1) Sharp excision left lower extremity wound, 8 x 5.5 cm (CPT 95787) 2) Split-thickness skin grafting with graft from left thigh, 8 x 5.5 cm (30633) Surgeon: Pato Enriquez Date of Procedure: 02/08/24 Procedure Start Time: 13:27 Procedure Stop Time: 14:07 Pre-Operative Diagnosis: Left lower extremity wound (anterior leg/jimenez) after dog scratch Post-Operative Diagnosis: Same Select all DRAINS/GRAFTS/IMPLANTS that apply: Graft (Skin graft) Graft details: STSG from the left thigh Type of Anesthesia: Local MAC (40 cc of 50 /50 mixture of 0.25% marcaine and 1% lidocaine, both with 1:200,000 epinephrine ) Estimated Blood Loss: 20 cc Fluids Replaced: 10 cc NS Specimen collected: No Description of surgery: Indications: Patient is a delightful 83-year-old female with a left lower extremity wound after dog scratched her approximately 2 weeks ago. I debrided the wound in the operating room and took cultures last week. She tolerated the procedure well and the wound was irrigated with Dakin's using an irrigating wound VAC. 2 days later it was transition to a regular wound VAC and she has had 2 wound VAC changes in the interim. The wound is clean enough for reconstruction and the cultures were negative and she has been on antibiotics (she was on antibiotics before the cultures were taken). I talked her about the risk benefits and alternatives of skin grafting. She understands that this will be to speed up wound healing, but that the skin graft could fail. I talked her about the risks of bleeding and fluid collections as she is on blood thinner, but since it is a small wound, we decided to leave her on the blood thinner. All questions answered and patient elected to proceed. Procedure details Patient was correctly benefit in preoperative holding and taken back to the operating room. She was administered some sedation and 40 cc of local was injected into the skin graft site and around the wound she was prepped and draped in sterile fashion. A proper timeout was performed. I began the procedure by taking a 15 blade scalpel, a curette, and Metzenbaum scissors for an excision of an 8 x 5.5 cm left lower extremity wound down to necrotic fat in preparation for the skin graft. Hemostasis was obtained with Bovie electrocautery as well as epinephrine soaked Telfa's. The wound was irrigated with 450 cc of Irrisept and copious amounts normal saline. Attention was then turned to the left thigh where a 8 x 5.5 cm split-thickness skin graft at 12: 1000th of an inch thickness was taken with Alberto dermatome. Hemostasis was obtained with epinephrine soaked Telfa's. The graft was meshed on the back table with a 15 blade scalpel so as to prevent fluid collections. It was sutured into the wound bed with 4-0 Chromic Gut suture followed by placement of wound VAC using Adaptic. The wound VAC was holding suction at the end of the case. Mepilex Ag was placed at the donor site with an ABD and an Lb. The patient tolerated the procedure well and was awakened and taken to the PACU in stable condition. Postoperative plan: Plan for use of the wound VAC for 5 days over the skin graft to prevent fluid collections and keep the skin graft stuck down. Plan for VAC removal on Tuesday for February 2024. 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
== END 2024-02-08 15:02 | disposition home or self-care (01) ==
LOC: SDC 11:13 → AC 11:13
PROVIDERS: PCP Family Medicine; Referring Provider Surgery Plastic and Reconstructive Surgery; Visit Provider Surgery Plastic and Reconstructive Surgery
PROC: (CPT 15002; principal; 2024-02-08 12:20)
DX: S81.802A Unspecified open wound, left lower leg, initial encounter (principal); I48.0 Paroxysmal atrial fibrillation; E78.00 Pure hypercholesterolemia, unspecified; E03.9 Hypothyroidism, unspecified; E55.9 Vitamin D deficiency, unspecified; Z79.899 Other long term (current) drug therapy; Z79.01 Long term (current) use of anticoagulants; Z86.718 Personal history of other venous thrombosis and embolism; Z95.0 Presence of cardiac pacemaker; X58.XXXA Exposure to other specified factors, initial encounter
CPT/HCPCS: 15002; 15100; 00400; A4216; J2405

== ENCOUNTER 2024-03-05 14:15 | Outpatient (RCR) | payer MEDICARE, SELFPAY ==
[2024-02-27 13:19] VITALS: BP 160/82; PULSE 81; RESP 18; TEMP 36.4; BMI 31.4
--- NOTE | 2024-02-27 17:15 | PCM.PN.BLA ---
Progress Note Post op week 2.5 from [facility]. Doing well. Pain controlled. Physical Exam Narrative LEFT LOWER EXTREMITY 90% take of the skin graft. Healing well. Stuck down. Re-epithelializing. No induration/drainage/ fluid collections. Assessment & Plan Assessment/Plan (1) Abscess of left lower extremity: (2) Wound of left lower extremity: PLAN: Plan Healing well. Hydrogel twice daily with gauze to the open areas/graft. F/u in 1 week Procedures Integumentary 111xxx-113xx: [id number] Global Visit
--- NOTE | 2024-02-28 13:55 | WC ---
PHOTO 02/27/24 LEFT MEDIAL LE POST OP
--- NOTE | 2024-02-28 13:57 | WC ---
PHOTO 02/27/24 LEFT THIGH GRAFT
[2024-03-05 14:29] VITALS: BP 150/78; PULSE 83; RESP 18; TEMP 36.2; BMI 31.4
--- NOTE | 2024-03-05 17:00 | PCM.WC.PN ---
History of Present Illness Date of Service: 03/05/24 Chief Complaint: Nonhealing hematoma ulcer right gluteal area. History of Wound: Surgery 03/20/18 - Surgical preparation right gluteal and proximal posterior thigh area with incision and drainage and evacuation and excisional debridement traumatic submuscular hematoma with extension to ischial bone and onto proximal posterior thigh (180 cm2). Wound care - VAC discontinued and aquacel silver dressing changes started. Operative culture - None. Prealbumin from 03/20/18 was 25.2. Encouraged nutritional supplementation with protein to help the healing process. Patient denies fever. Patient's appetite is ok. Subjective Subjective Doing well overall. Reports dressing changes are going well. No fevers/chills Objective Data Objective Data Vital Signs: Vital Signs Temp Pulse Resp BP O2 Del Method 97.1 F L 83 18 150/78 H Room Air 03/05/24 14:29 03/05/24 14:29 03/05/24 14:29 03/05/24 14:29 02/27/24 13:19 Oxygen Delivery Method Room Air Weight: 183 lb Body Mass Index (BMI) 31.4 Charges/Coding Procedures Integumentary 111xxx-113xx: 29349 Global Visit Physical Exam Narrative LEFT LOWER EXTREMITY 90% take of the skin graft. Healing well. Stuck down. Re-epithelializing. No induration/drainage/ fluid collections. 27 FEB 2024 05 MAR 2024 Debridement Note Debridement Note Post-Debridement Measurements and Additional Note: Post-Debridement Measurements/Treatment WC - Nurse 1 - General Ulcer Assessment Start: 02/27/24 13:19 Freq: Status: Active Protocol: ERICA Activity Type Activity Date Activity User E-sign Co-sign Detail Recorded Client Recorded Date Recorded By Document 02/27/24 13:19 KW [id number] 02/27/24 13:38 KW Document 03/05/24 14:29 DL [id number] 03/05/24 14:37 DL 02/27/24 03/05/24 13:19 14:29 WC - Today's Visit Information Type of service Initial Visit Follow-up Visit (Physician/SUPERVISOR [employer]LL[employer] ) Arrival Mode Ambulatory, Ambulatory, Walker Walker Transfer Assistance None Accompanied by daughter Patient Identification Verified (Name & Yes Yes ) Patient Requires Transmission-Based No Precautions Height and Weight Height 5 ft 4 in Weight 183 lb Weight in Pounds 183.0 lbs Weight Measurement Method Estimated by Patient Body Mass Index (BMI) 31.4 31.4 BMI Classification Obese Obese BSA - Fiorella 1.88 Vital Signs Temperature (97.8 F-99.1 F) 97.5 F L 97.1 F L Temperature Source Temporal Temporal Pulse Rate (60-100) 81 83 Pulse Location Monitor Respiratory Rate (12-18) 18 18 Respiratory rate source Observation Oxygen Delivery Method Room Air Blood Pressure (90/60-120/80) 160/82 H 150/78 H Blood Pressure Mean (mm Hg) 108 102 Source Monitor Monitor Position Semi-Fowlers Blood Pressure Location Left Arm History Since Last Visit- (Skip if this is Patient's initial visit) Have you changed medications since your No last visit? Any new allergies or adverse reactions No Had a fall/change in ADL's that may No increase risk of falls Signs or symptoms of abuse and/or No neglect since last visit Have you been in the hospital since your No last visit? Has dressing in place as prescribed Yes Has compression in place as prescribed Yes Has offloadiing in place as prescribed N/A Experienced any changes in pain level or No management Left Footwear Regular Shoe Right Footwear Regular Shoe Pain Scale: 0-10 Numeric Is Patient Pain Free? 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 Required No Able to Read Yes Able to Write Yes Caregiver Communication Skills No Impairment Impairment Right Hearing Abillity Hard of Hearing ,Use of Hearing Aid Left Hearing Abillity Hard of Hearing ,Use of Hearing Aid Visual Assistive Devices Glasses Teaching Assessment Preferences Verbal,Written, Demonstration Barriers to Learning None Readiness To Learn Excellent Willingness to Engage in Self Management High Activies Readiness to Engage in Self Management High Activities Anxiety Level Calm Cooperation Cooperative Perception Coherent Interest in Health Problem Asks Questions Education Importance Acknowledges Need Does Patient Smoke tobacco or other Yes substances Smoking Status Never smoker Is Patient Diabetic No Functional Assessment Recent Decline in Ability to Perform Denies Any Declines Culture/Scientologist/Statistical Programmer Analyst Cultural/Scientologist Needs that may affect No Treatment Plan Would you allow our hospital vehicle sales professional to No meet you for the purpose of spiritual/ emotional support? Statistical Programmer Analyst to contact place of faith No WC - Nurse 1 - General Ulcer Measurement Start: 02/27/24 13:19 Freq: Status: Active Protocol: Activity Type Activity Date Activity User E-sign Co-sign Detail Recorded Client Recorded Date Recorded By Document 02/27/24 13:19 KW [id number] 02/27/24 13:38 KW Document 03/05/24 14:29 DL [id number] 03/05/24 14:37 DL 02/27/24 03/05/24 13:19 14:29 Wound Center Nurse 1 #4 LT THIGH SKIN GRAFT SITE -Current Size (cm) - Length 7.7 -Current Size (cm) - Width 6.4 -Current Size (cm) - Depth 0 -Total Square Cm 49.28 -Date of Last Picture (Recall this 02/27/24 field) -Exudate Amt Small -Exudate Type Serosanguineous -Wound Margin Distinct, Outline Attached -Granulation Amt Large (67-100%) -Granulation Quality [place] -Texture (Beth-wound Skin Appearance) Assessed -Moisture (Beth-wound Skin Appearance) Assessed -Color (Beth-wound Skin Appearance) Assessed -Temperature (Beth-wound Skin No Abnormality Appearance) (Pt Warm) -Tenderness on Palpation (Beth-wound No Skin Appearance) -Ulcer Cleansing Soap and Water -Foul Odor after Cleansing No #3 LT MED LE POST OP -Current Size (cm) - Length 8.5 7.3 -Current Size (cm) - Width 5.5 2.3 -Current Size (cm) - Depth 0 0.1 -Total Square Cm 46.75 16.79 -Date of Last Picture (Recall this 02/27/24 field) -Exudate Amt Small Medium -Exudate Type Serosanguineous Serosanguineous -Wound Margin Distinct, Distinct, Outline Outline Attached Attached -Granulation Amt None Present (0 %) -Necrosis Amt Large (67-100%) -Necrotic Tissue Type Adherent Slough -Structure Exposed N/A -Texture (Beth-wound Skin Appearance) Assessed Scarring -Moisture (Beth-wound Skin Appearance) Assessed No Abnormality -Color (Beth-wound Skin Appearance) Assessed Hemosiderin Staining -Temperature (Beth-wound Skin No Abnormality No Abnormality Appearance) (Pt Warm) (Pt Warm) -Tenderness on Palpation (Beth-wound No No Skin Appearance) -Ulcer Cleansing Soap and Water Soap and Water -Foul Odor after Cleansing No No -Anesthetic Used 5% Lidocaine Gel -Wound Comment(s) SKIN GRAFT EDGES INTACT Left Calf (cm) 39 Left Ankle (cm) 20.4 WC - Nurse 2 - General Ulcer CM Notes Start: 02/27/24 13:19 Freq: Status: Active Protocol: Activity Type Activity Date Activity User E-sign Co-sign Detail Recorded Client Recorded Date Recorded By Document 02/27/24 13:47 [id number] 02/27/24 13:55 JF Document 03/05/24 14:44 [id number] 03/05/24 14:46 JF Edit Result 03/05/24 14:44 JF (1) [id number] 03/05/24 14:47 (1) #3 LT MED LE POST OP - Post Debridement (cm) - Length 7 => 1 - Post Debridement (cm) - Width 2.5 => 1 - Post Debridement (cm) - Depth 0.2 => 0.1 - Total Square (Post) (cm) 17.5 => 1 - Area of Debridement (cm) - Length 7 => 1 - Area of Debridement (cm) - Width 2.5 => 1 - Total Square (Area) (cm) 17.5 => 1 02/27/24 03/05/24 13:47 14:44 Wound Center Nurse 2 #4 LT THIGH SKIN GRAFT SITE -Correct Patient No -Correct Side, Site, Position No -Correct Procedure No -Procedure Performed No -Wound/Ulcer Outcome Healed- Epithelialized #3 LT MED LE POST OP -Time 14:44 -Correct Patient No Yes -Correct Side, Site, Position No Yes -Correct Procedure No Yes -Procedure Performed No Yes -Type of Procedure Debridement -Clinical Debridement Subcutaneous -Tissue Removed Subcutaneous -Post Debridement (cm) - Length 0.1 1 -Post Debridement (cm) - Width 0.1 1 -Post Debridement (cm) - Depth 0.1 0.1 -Total Square (Post) (cm) 0.01 1 -Area of Debridement (cm) - Length 0.1 1 -Area of Debridement (cm) - Width 0.1 1 -Total Square (Area) (cm) 0.01 1 -Tunneling No -Undermining/Tunneling No -Circular Undermining No -Wound/Ulcer Outcome Not Healed Not Healed -Ulcer Cleansing Rinsed/ Irrigated with Saline -Foul Odor after Cleansing No -Bioengineered Tissue No -Bleeding Controlled with Pressure -Treatment Response Procedure Tolerated Well -Offloading No -Debridement - Subq, 1st 20sq cm No Yes Pain Scale: 0-10 Numeric Is Patient Pain Free? Yes Yes WC - Nurse 3 - General Ulcer D/C NN Start: 02/27/24 13:19 Freq: Status: Active Protocol: Activity Type Activity Date Activity User E-sign Co-sign Detail Recorded Client Recorded Date Recorded By Document 02/27/24 14:09 ML [id number] 02/27/24 14:11 ML Document 03/05/24 14:51 DL [id number] 03/05/24 14:52 DL 02/27/24 03/05/24 14:09 14:51 Wound Care Center Nurse 3 #3 LT MED LE POST OP -Ulcer Cleansing Rinsed/ Rinsed/ Irrigated with Irrigated with Saline Saline -Foul Odor after Cleansing No -Primary Dressing Applied C Hydrogel ($) -Other Dressing HYDROGEL -Primary Dressing Covered/Secured with Dry Gauze,Dry Dry Gauze & Gauze & Roll Roll Gauze, Gauze,Secured Secured with with Tape Tape -Wound Comment(s) HYDROGEL Left -Compression Wrap Lb Wrap Treatment Response Procedure Tolerated Well Pain Scale: 0-10 Numeric Is Patient Pain Free? Yes Yes WC - Visit Discharge Discharge Condition Stable Ambulatory Status Ambulatory, Walker Transportation Private Auto Facility Type Home Health Orders Sent Yes Assessment/Plan Assessment/Plan (1) Wound of left lower extremity: CODE(S): S81.802A - Unspecified open wound, left lower leg, initial encounter PLAN: Plan Healing well overall Xeroform dressing changes twice daily and continue LB wrap for swelling (toes to knee) F/u in 2 weeks to check progress
== END 2024-03-10 23:59 | disposition home or self-care (01) ==
LOC: WC 14:15
PROVIDERS: PCP Family Medicine; Referring Provider Surgery Plastic and Reconstructive Surgery; Visit Provider Surgery Plastic and Reconstructive Surgery
DX: S81.802A Unspecified open wound, left lower leg, initial encounter (principal); L02.416 Cutaneous abscess of left lower limb; S30.0XXS Contusion of lower back and pelvis, sequela; M79.89 Other specified soft tissue disorders; Z79.01 Long term (current) use of anticoagulants; Z79.890 Hormone replacement therapy; Z79.899 Other long term (current) drug therapy
CPT/HCPCS: 11042; 99214; G0463

== ENCOUNTER 2024-04-02 09:15 | Outpatient (RCR) | payer MEDICARE, SELFPAY ==
[2024-03-11 00:37] VITALS: BP 150/78; PULSE 83; RESP 18; TEMP 36.2; BMI 31.4
[2024-03-19 09:05] VITALS: BP 148/65; PULSE 75; RESP 18; TEMP 36.4; BMI 31.4
--- NOTE | 2024-03-19 14:26 | PN.PCM_ITS ---
<Statement entered by Pato Enriquez MD - 03/22/24 09:49> I have personally performed a face to face assessment of the patient and have reviewed the FR[facility]IS[facility] Note. History of Present Illness Date of Service: 03/19/24 Chief Complaint: Nonhealing hematoma ulcer right gluteal area. History of Wound: Surgery 03/20/18 - Surgical preparation right gluteal and proximal posterior thigh area with incision and drainage and evacuation and excisional debridement traumatic submuscular hematoma with extension to ischial bone and onto proximal posterior thigh (180 cm2). Wound care - VAC discontinued and aquacel silver dressing changes started. Operative culture - None. Prealbumin from 03/20/18 was 25.2. Encouraged nutritional supplementation with protein to help the healing process. Patient denies fever. Patient's appetite is ok. Progress of Wound: Patient is doing well at home. Her left anterior leg ulcer/skin graft is healing well. There are a few scattered areas around the edges that are scabby. The donor site is healed. Objective Data Objective Data Vital Signs: Vital Signs Temp Pulse Resp BP O2 Del Method 97.6 F L 75 18 148/65 H Room Air 03/19/24 09:05 03/19/24 09:05 03/19/24 09:05 03/19/24 09:05 03/19/24 09:05 Oxygen Delivery Method Room Air Weight: 183 lb Body Mass Index (BMI) 31.4 Charges/Coding Procedures Integumentary 111xxx-113xx: 49115 Global Visit Physical Exam Narrative Left anterior leg skin graft site is healing well. She has a few small areas on the edges of the skin graft that are not quite healed. Debridement Note Debridement Note Wound debrided: anterior leg cluster Laterality: Left Type of Debridement: Excisional debridement Anesthesia Used: 5% Lidocaine Gel Depth: Down to and including healthy tissue and in the subcutaneous layer Percentage of wound debrided: 100 Instrument Used: 3mm curette Tissue Removed: Non viable tissue and slough/scabbing Severity: Fat Layer Exposed Amount of bleeding with debridement: Mild Bleeding Controlled with: Compression and gauze Patient tolerated procedure: Patient tolerated procedure well Post-Debridement Measurements and Additional Note: Post-Debridement Measurements/Treatment WC - Nurse 1 - General Ulcer Assessment Start: 03/19/24 09:05 Freq: Status: Active Protocol: ERCIA Activity Type Activity Date Activity User E-sign Co-sign Detail Recorded Client Recorded Date Recorded By Document 03/19/24 09:05 KW [id number] 03/19/24 09:13 KW Edit Result 03/19/24 09:05 KW (1) [id number] 03/19/24 09:14 KW (1) Pulse Rate (60-100) => 75 Blood Pressure (90/60-120/80) => 148/65 H Blood Pressure Mean (mm Hg) => 92 03/19/24 09:05 WC - Today's Visit Information Type of service Follow-up Visit (Physician/[employer] ) Arrival Mode Ambulatory Accompanied by daughter Patient Identification Verified (Name & Yes ) Height and Weight Body Mass Index (BMI) 31.4 BMI Classification Obese Vital Signs Temperature (97.8 F-99.1 F) 97.6 F L Temperature Source Temporal Pulse Rate (60-100) 75 Pulse Location Monitor Respiratory Rate (12-18) 18 Respiratory rate source Observation Oxygen Delivery Method Room Air Blood Pressure (90/60-120/80) 148/65 H Blood Pressure Mean (mm Hg) 92 Source Monitor Position Sitting Blood Pressure Location Left Arm History Since Last Visit- (Skip if this is Patient's initial visit) Have you changed medications since your No last visit? Any new allergies or adverse reactions No Had a fall/change in ADL's that may No increase risk of falls Signs or symptoms of abuse and/or No neglect since last visit Have you been in the hospital since your No last visit? Has dressing in place as prescribed Yes Has compression in place as prescribed Yes Has offloadiing in place as prescribed N/A Experienced any changes in pain level or No management Left Footwear Regular Shoe Right Footwear Regular Shoe Pain Scale: 0-10 Numeric Is Patient Pain Free? Yes WC - Nurse 1 - General Ulcer Measurement Start: 03/19/24 09:05 Freq: Status: Active Protocol: Activity Type Activity Date Activity User E-sign Co-sign Detail Recorded Client Recorded Date Recorded By Document 03/19/24 09:05 KW [id number] 03/19/24 09:13 KW 03/19/24 09:05 Wound Center Nurse 1 #3 LT MED LE POST OP -Current Size (cm) - Length 0.6 -Current Size (cm) - Width 0.3 -Current Size (cm) - Depth 0.2 -Total Square Cm 0.18 -Date of Last Picture (Recall this 03/19/24 field) -Exudate Amt Small -Exudate Type Serosanguineous -Wound Margin Distinct, Outline Attached -Granulation Amt Small (1-33%) -Granulation Quality [place] -Necrosis Amt Large (67-100%) -Necrotic Tissue Type Adherent Slough -Texture (Beth-wound Skin Appearance) Assessed -Moisture (Beth-wound Skin Appearance) Assessed -Color (Beth-wound Skin Appearance) Assessed -Temperature (Beth-wound Skin No Abnormality Appearance) (Pt Warm) -Tenderness on Palpation (Beth-wound No Skin Appearance) -Ulcer Cleansing Rinsed/ Irrigated with Saline -Foul Odor after Cleansing No -Anesthetic Used 5% Lidocaine Gel Left Calf (cm) 39.6 Left Ankle (cm) 19.2 WC - Nurse 2 - General Ulcer CM Notes Start: 03/19/24 09:05 Freq: Status: Active Protocol: Activity Type Activity Date Activity User E-sign Co-sign Detail Recorded Client Recorded Date Recorded By Document 03/19/24 09:22 RONNY [id number] 03/19/24 09:26 RONNY 03/19/24 09:22 Wound Center Nurse 2 #3 LT MED LE POST OP -Time 09:23 -Correct Patient Yes -Correct Side, Site, Position Yes -Correct Procedure Yes -Procedure Performed Yes -Type of Procedure Debridement -Clinical Debridement Subcutaneous -Tissue Removed Subcutaneous -Post Debridement (cm) - Length 7 -Post Debridement (cm) - Width 4 -Post Debridement (cm) - Depth 0.5 -Total Square (Post) (cm) 28 -Area of Debridement (cm) - Length 7 -Area of Debridement (cm) - Width 4 -Total Square (Area) (cm) 28 -Tunneling No -Undermining/Tunneling No -Circular Undermining No -Wound/Ulcer Outcome Not Healed -Ulcer Cleansing Rinsed/ Irrigated with Saline -Foul Odor after Cleansing No -Bioengineered Tissue No -Bleeding Controlled with Pressure -Treatment Response Procedure Tolerated Well -Offloading No -Debridement - Subq, 1st 20sq cm Yes -Debridement, SubQ, ea addt'l 20sq cm 1 or part thereof Pain Scale: 0-10 Numeric Is Patient Pain Free? Yes IDA - Nurse 3 - General Ulcer D/C NN Start: 03/19/24 09:05 Freq: Status: Active Protocol: Activity Type Activity Date Activity User E-sign Co-sign Detail Recorded Client Recorded Date Recorded By Document 03/19/24 09:34 VALENTINE [id number] 03/19/24 09:34 VALENTINE 03/19/24 09:34 Wound Care Center Nurse 3 #3 LT MED LE POST OP -Primary Dressing Applied NonAdherent Contact Layer, Promogran Jorge Matter -Primary Dressing Covered/Secured with Dry Gauze & Roll Gauze, Secured with Tape -Promogran Jorge Matter 1 Left -Tubular Bandage Single Layer -Size of Tubigrip Used Size E -Size E ($) 1 Pain Scale: 0-10 Numeric Is Patient Pain Free? Yes WC - Visit Discharge Discharge Condition Stable Ambulatory Status Ambulatory, Walker Transportation Private Auto Medication Reconcilliation completed & No provided to patient/care provider Clinical Summary of Care Provided Yes Assessment/Plan Assessment/Plan (1) Wound of left lower extremity: CODE(S): S81.802A - Unspecified open wound, left lower leg, initial encounter PLAN: Plan Healing well overall Wound care - Moistened jorge to the open areas covered with Adaptic and gauze or ABD daily. Wash with soap and water at the time of the dressing changes. Donor site is healed. Massage with lotion, Aquaphor or Vaseline daily to help keep area moisturized. She has home health to help with her dressing changes and a very supportive daughter. Discussed plan of care with Dr. Enriquez. F/u in [address] Enriquez. Call or come in sooner if develop any concerns.
--- NOTE | 2024-03-20 14:34 | WC ---
PHOTO 03/19/24 LT FAJARDO
[2024-03-26 09:05] VITALS: BP 175/74; PULSE 85; RESP 15; TEMP 37.1; BMI 31.4
--- NOTE | 2024-03-26 13:07 | PCM.WC.PN ---
History of Present Illness Date of Service: 03/26/24 Chief Complaint: Left lower leg ulcer History of Wound: BRADLEY GILMORE, is a 83 F with history of rheumatoid arthritis (no current immunosuppressive's), atrial fibrillation (on Eliquis), hypothyroidism, and hypertension who presents with a left lower extremity wound that occurred on 25 January 2024 (last week) when a friendly dog accidentally scratched her leg with its paw. She unfortunately had to go to the emergency department after this as she had a small avulsion flap of skin. She was placed on doxycycline. She was admitted to the hospital this morning out of concern for infection of the left lower extremity (cellulitis) around the wound edges and necrosis of the avulsion flap that was sutured back into place by the emergency department last week. She is on Eliquis for atrial fibrillation. She has a history of DVT several years ago that was provoked (occurred during a hospitalization for GI bleed). She was not on any blood thinner after that, but was placed on blood thinner eventually for the atrial fibrillation. No history of problems with anesthesia. 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 She is fully healed this injury and cleared the osteomyelitis. On her x-ray from the emergency department here at [facility] she did not demonstrate any fracture or malalignment. Surgery 01/31/24 - Excision of left lower extremity wound (6 x 9 cm) and Placement of negative pressure wound therapy irrigating wound VAC. Surgery 02/08/24 - Sharp excision left lower extremity wound, 8 x 5.5 cm and Split-thickness skin grafting with graft from left thigh, 8 x 5.5 cm. She was in TCU for awhile post operatively and was discharged home 02/17/24. Patient denies fever. Patient's appetite is ok. Progress of Wound: Patient is doing well at home. Her left anterior leg ulcer/skin graft is healing well. There are a few scattered areas that are not healed. The cluster is getting smaller and the depth of the most superior area is decreasing in size. The open wounds are a little dry this week, even with the adaptic. The donor site is healed. Objective Data Objective Data Vital Signs: Vital Signs Temp Pulse Resp BP O2 Del Method 98.7 F 85 15 175/74 H Room Air 03/26/24 09:05 03/26/24 09:05 03/26/24 09:05 03/26/24 09:05 03/19/24 09:05 Oxygen Delivery Method Room Air Weight: 183 lb Body Mass Index (BMI) 31.4 Charges/Coding Procedures Integumentary 111xxx-113xx: 28985 Global Visit Physical Exam Narrative Left anterior leg skin graft site has a cluster wound that are getting smaller. Debridement Note Debridement Note Wound debrided: anterior leg cluster Laterality: Left Type of Debridement: Excisional debridement Anesthesia Used: 5% Lidocaine Gel Depth: Down to and including healthy tissue and in the subcutaneous layer Percentage of wound debrided: 100 Instrument Used: 3mm curette Tissue Removed: Non viable tissue and slough/scabbing Severity: Fat Layer Exposed Amount of bleeding with debridement: Mild Bleeding Controlled with: Compression and gauze Patient tolerated procedure: Patient tolerated procedure well Post-Debridement Measurements and Additional Note: Post-Debridement Measurements/Treatment - Nurse 1 - General Ulcer Assessment Start: 03/19/24 09:05 Freq: Status: Active Protocol: ERICA Activity Type Activity Date Activity User E-sign Co-sign Detail Recorded Client Recorded Date Recorded By Document 03/19/24 09:05 KW [id number] 03/19/24 09:13 KW Edit Result 03/19/24 09:05 KW (1) [id number] 03/19/24 09:14 KW Document 03/26/24 09:05 ML [id number] 03/26/24 09:12 ML (1) Pulse Rate (60-100) => 75 Blood Pressure (90/60-120/80) => 148/65 H Blood Pressure Mean (mm Hg) => 92 03/19/24 03/26/24 09:05 09:05 - Today's Visit Information Type of service Follow-up Visit Follow-up Visit (Physician/RABBLER (Physician/RABBLER ) ) Arrival Mode Ambulatory Walker Transfer Assistance None Accompanied by daughter Patient Identification Verified (Name & Yes Yes ) Patient Requires Transmission-Based No Precautions Height and Weight Body Mass Index (BMI) 31.4 31.4 BMI Classification Obese Obese Vital Signs Temperature (97.8 F-99.1 F) 97.6 F L 98.7 F Temperature Source Temporal Temporal Pulse Rate (60-100) 75 85 Pulse Location Monitor Monitor Respiratory Rate (12-18) 18 15 Respiratory rate source Observation Observation Oxygen Delivery Method Room Air Blood Pressure (90/60-120/80) 148/65 H 175/74 H Blood Pressure Mean (mm Hg) 92 107 Source Monitor Monitor Position Sitting Sitting Blood Pressure Location Left Arm Left Arm History Since Last Visit- (Skip if this is Patient's initial visit) Have you changed medications since your No No last visit? Any new allergies or adverse reactions No No Had a fall/change in ADL's that may No No increase risk of falls Signs or symptoms of abuse and/or No No neglect since last visit Have you been in the hospital since your No No last visit? Has dressing in place as prescribed Yes Yes Has compression in place as prescribed Yes N/A Has offloadiing in place as prescribed N/A N/A Experienced any changes in pain level or No No management Left Footwear Regular Shoe Right Footwear Regular Shoe Pain Scale: 0-10 Numeric Is Patient Pain Free? Yes Yes WC - Nurse 1 - General Ulcer Measurement Start: 03/19/24 09:05 Freq: Status: Active Protocol: Activity Type Activity Date Activity User E-sign Co-sign Detail Recorded Client Recorded Date Recorded By Document 03/19/24 09:05 KW [id number] 03/19/24 09:13 KW Document 03/26/24 09:05 ML [id number] 03/26/24 09:12 ML 03/19/24 03/26/24 09:05 09:05 Wound Center Nurse 1 #3 LT MED LE POST OP -Current Size (cm) - Length 0.6 0.1 -Current Size (cm) - Width 0.3 0.1 -Current Size (cm) - Depth 0.2 0.1 -Total Square Cm 0.18 0.01 -Date of Last Picture (Recall this 03/19/24 field) -Epithelialization Medium 34-66% -Exudate Amt Small Small -Exudate Type Serosanguineous Serosanguineous -Wound Margin Distinct, Distinct, Outline Outline Attached Attached -Granulation Amt Small (1-33%) Medium (34-66%) -Granulation Quality [place] -Slough/Fibrin Yes -Necrosis Amt Large (67-100%) Medium (34-66%) -Necrotic Tissue Type Adherent Slough Adherent Slough -Texture (Beth-wound Skin Appearance) Assessed Assessed -Moisture (Beth-wound Skin Appearance) Assessed Assessed -Color (Beth-wound Skin Appearance) Assessed Assessed -Temperature (Beth-wound Skin No Abnormality No Abnormality Appearance) (Pt Warm) (Pt Warm) -Tenderness on Palpation (Beth-wound No No Skin Appearance) -Ulcer Cleansing Rinsed/ Irrigated with Saline -Foul Odor after Cleansing No No -Anesthetic Used 5% Lidocaine 5% Lidocaine Gel Gel Left Calf (cm) 39.6 35.5 Left Ankle (cm) 19.2 20.4 - Nurse 2 - General Ulcer CM Notes Start: 03/19/24 09:05 Freq: Status: Active Protocol: Activity Type Activity Date Activity User E-sign Co-sign Detail Recorded Client Recorded Date Recorded By Document 03/19/24 09:22 [id number] 03/19/24 09:26 Document 03/26/24 09:27 [id number] 03/26/24 09:37 03/19/24 03/26/24 09:22 09:27 Wound Center Nurse 2 #3 LT MED LE POST OP -Time 09:23 09:28 -Correct Patient Yes Yes -Correct Side, Site, Position Yes Yes -Correct Procedure Yes Yes -Procedure Performed Yes Yes -Type of Procedure Debridement Debridement -Clinical Debridement Subcutaneous Subcutaneous -Tissue Removed Subcutaneous Subcutaneous -Post Debridement (cm) - Length 7 6.4 -Post Debridement (cm) - Width 4 2.9 -Post Debridement (cm) - Depth 0.5 0.2 -Total Square (Post) (cm) 28 18.56 -Area of Debridement (cm) - Length 7 6.4 -Area of Debridement (cm) - Width 4 2.9 -Total Square (Area) (cm) 28 18.56 -Tunneling No No -Undermining/Tunneling No No -Circular Undermining No No -Wound/Ulcer Outcome Not Healed Not Healed -Ulcer Cleansing Rinsed/ Rinsed/ Irrigated with Irrigated with Saline Saline -Foul Odor after Cleansing No No -Bioengineered Tissue No No -Bleeding Controlled with Pressure Pressure -Treatment Response Procedure Procedure Tolerated Well Tolerated Well -Offloading No No -Debridement - Subq, 1st 20sq cm Yes Yes -Debridement, SubQ, ea addt'l 20sq cm 1 or part thereof Pain Scale: 0-10 Numeric Is Patient Pain Free? Yes Yes - Nurse 3 - General Ulcer D/C NN Start: 03/19/24 09:05 Freq: Status: Active Protocol: Activity Type Activity Date Activity User E-sign Co-sign Detail Recorded Client Recorded Date Recorded By Document 03/19/24 09:34 KW [id number] 03/19/24 09:34 KW Document 03/26/24 09:44 ML [id number] 03/26/24 09:46 ML 03/19/24 03/26/24 09:34 09:44 Wound Care Center Nurse 3 #3 LT MED LE POST OP -Ulcer Cleansing Rinsed/ Irrigated with Saline -Foul Odor after Cleansing No -Negative Pressure Wound Therapy N/A -Primary Dressing Applied NonAdherent Promogran Contact Layer, Jorge Matter Promogran Jorge Matter -Other Dressing hydrogel, adaptic -Primary Dressing Covered/Secured with Dry Gauze & Dry Gauze & Roll Gauze, Roll Gauze Secured with Tape -Promogran Jorge Matter 1 1 Left -Tubular Bandage Single Layer Single Layer -Size of Tubigrip Used Size E Size E -Size E ($) 1 1 Pain Scale: 0-10 Numeric Is Patient Pain Free? Yes No WC - Visit Discharge Discharge Condition Stable Ambulatory Status Ambulatory, Walker Transportation Private Auto Medication Reconcilliation completed & No provided to patient/care provider Clinical Summary of Care Provided Yes Assessment/Plan Assessment/Plan (1) Wound of left lower extremity: CODE(S): S81.802A - Unspecified open wound, left lower leg, initial encounter PLAN: Plan Healing well overall Wound care - Moistened jorge to the most superior opened area where there is the most depth, daily. To the rest of the superficial open areas place collagen hydrogel covered with Adaptic (over the entire cluster) and gauze or ABD daily. Wash with soap and water at the time of the dressing changes. Donor site is healed. Massage with lotion, Aquaphor or Vaseline daily to help keep area moisturized. She has home health to help with her dressing changes and a very supportive daughter. Discussed plan of care with Dr. Enriquez. F/u in [address] Enriquez. Call or come in sooner if develop any concerns.
[2024-04-02 09:17] VITALS: BP 194/71; PULSE 94; RESP 16; TEMP 36.4; BMI 31.4
--- NOTE | 2024-04-02 12:28 | PCM.WC.PN ---
History of Present Illness Date of Service: 04/02/24 Chief Complaint: Left lower leg ulcer History of Wound: BRADLEY GILMORE, is a 83 F with history of rheumatoid arthritis (no current immunosuppressive's), atrial fibrillation (on Eliquis), hypothyroidism, and hypertension who presents with a left lower extremity wound that occurred on 25 January 2024 (last week) when a friendly dog accidentally scratched her leg with its paw. She unfortunately had to go to the emergency department after this as she had a small avulsion flap of skin. She was placed on doxycycline. She was admitted to the hospital this morning out of concern for infection of the left lower extremity (cellulitis) around the wound edges and necrosis of the avulsion flap that was sutured back into place by the emergency department last week. She is on Eliquis for atrial fibrillation. She has a history of DVT several years ago that was provoked (occurred during a hospitalization for GI bleed). She was not on any blood thinner after that, but was placed on blood thinner eventually for the atrial fibrillation. No history of problems with anesthesia. 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 She is fully healed this injury and cleared the osteomyelitis. On her x-ray from the emergency department here at [place] she did not demonstrate any fracture or malalignment. Surgery 01/31/24 - Excision of left lower extremity wound (6 x 9 cm) and Placement of negative pressure wound therapy irrigating wound VAC. Surgery 02/08/24 - Sharp excision left lower extremity wound, 8 x 5.5 cm and Split-thickness skin grafting with graft from left thigh, 8 x 5.5 cm. She was in TCU for awhile post operatively and was discharged home 02/17/24. Patient denies fever. Patient's appetite is ok. Progress of Wound: Patient is doing well at home. Left medial leg skin graft with a cluster of small superficial open areas. She has one area on the proximal edge that has a small amount of depth, but it is improving. She has +2 edema because she has been walking more and keeping her legs dependent due to her 's recent surgery and hospitalization. Objective Data Objective Data Vital Signs: Vital Signs Temp Pulse Resp BP O2 Del Method 97.6 F L 94 16 194/71 H Room Air 04/02/24 09:17 04/02/24 09:17 04/02/24 09:17 04/02/24 09:17 04/02/24 09:17 Oxygen Delivery Method Room Air Weight: 183 lb Body Mass Index (BMI) 31.4 Charges/Coding Procedures Integumentary 111xxx-113xx: [id number] Global Visit Physical Exam Narrative Left medial leg skin graft with a cluster of small superficial open areas. She has one area on the proximal edge that has a small amount of depth, but it is improving. She has +2 edema because she has been walking more and keeping her legs dependent. Debridement Note Debridement Note Wound debrided: anterior leg cluster Laterality: Left Type of Debridement: Excisional debridement Anesthesia Used: 5% Lidocaine Gel Depth: Down to and including healthy tissue and in the subcutaneous layer Percentage of wound debrided: 100 Instrument Used: 3mm curette Tissue Removed: Non viable tissue and slough/scabbing Severity: Fat Layer Exposed Amount of bleeding with debridement: Mild Bleeding Controlled with: Compression and gauze Patient tolerated procedure: Patient tolerated procedure well Post-Debridement Measurements and Additional Note: Post-Debridement Measurements/Treatment - Nurse 1 - General Ulcer Assessment Start: 03/19/24 09:05 Freq: Status: Active Protocol: ERICA Activity Type Activity Date Activity User E-sign Co-sign Detail Recorded Client Recorded Date Recorded By Document 03/19/24 09:05 KW [id number] 03/19/24 09:13 KW Edit Result 03/19/24 09:05 KW (1) [id number] 03/19/24 09:14 KW Document 03/26/24 09:05 ML [id number] 03/26/24 09:12 ML Document 04/02/24 09:17 BMF [id number] 04/02/24 09:22 BMF (1) Pulse Rate (60-100) => 75 Blood Pressure (90/60-120/80) => 148/65 H Blood Pressure Mean (mm Hg) => 92 03/19/24 03/26/24 04/02/24 09:05 09:05 09:17 - Today's Visit Information Type of service Follow-up Visit Follow-up Visit Follow-up Visit (Physician/WELLNESS NURSE (Physician/WELLNESS NURSE (Physician/WELLNESS NURSE ) ) ) Arrival Mode Ambulatory Walker Ambulatory, Walker Transfer Assistance None None Accompanied by daughter Patient Identification Verified (Name & Yes Yes Yes ) Patient Requires Transmission-Based No No Precautions Height and Weight Body Mass Index (BMI) 31.4 31.4 31.4 BMI Classification Obese Obese Obese Vital Signs Temperature (97.8 F-99.1 F) 97.6 F L 98.7 F 97.6 F L Temperature Source Temporal Temporal Temporal Pulse Rate (60-100) 75 85 94 Pulse Location Monitor Monitor Monitor Respiratory Rate (12-18) 18 15 16 Respiratory rate source Observation Observation Monitor Oxygen Delivery Method Room Air Room Air Blood Pressure (90/60-120/80) 148/65 H 175/74 H 194/71 H Blood Pressure Mean (mm Hg) 92 107 112 Source Monitor Monitor Monitor Position Sitting Sitting Sitting Blood Pressure Location Left Arm Left Arm Left Arm History Since Last Visit- (Skip if this is Patient's initial visit) Have you changed medications since your No No No last visit? Any new allergies or adverse reactions No No No Had a fall/change in ADL's that may No No No increase risk of falls Signs or symptoms of abuse and/or No No No neglect since last visit Have you been in the hospital since your No No No last visit? Has dressing in place as prescribed Yes Yes Yes Has compression in place as prescribed Yes N/A Yes Has offloadiing in place as prescribed N/A N/A N/A Experienced any changes in pain level or No No No management Left Footwear Regular Shoe Regular Shoe Right Footwear Regular Shoe Regular Shoe Pain Scale: 0-10 Numeric Is Patient Pain Free? Yes Yes Yes WC - Nurse 1 - General Ulcer Measurement Start: 03/19/24 09:05 Freq: Status: Active Protocol: Activity Type Activity Date Activity User E-sign Co-sign Detail Recorded Client Recorded Date Recorded By Document 03/19/24 09:05 KW [id number] 03/19/24 09:13 KW Document 03/26/24 09:05 ML [id number] 03/26/24 09:12 ML Document 04/02/24 09:17 BMF [id number] 04/02/24 09:22 BMF 03/19/24 03/26/24 04/02/24 09:05 09:05 09:17 Wound Center Nurse 1 #3 LT MED LE POST OP -Combined with other wound No -Current Size (cm) - Length 0.6 0.1 0.4 -Current Size (cm) - Width 0.3 0.1 0.4 -Current Size (cm) - Depth 0.2 0.1 0.1 -Total Square Cm 0.18 0.01 0.16 -Date of Last Picture (Recall this 03/19/24 04/02/24 field) -Photo Taken Yes -Epithelialization Medium 34-66% Small 1-33% -Tunneling No -Undermining/Tunneling No -Circular Undermining No -Exudate Amt Small Small Medium -Exudate Type Serosanguineous Serosanguineous Serosanguineous -Wound Margin Distinct, Distinct, Distinct, Outline Outline Outline Attached Attached Attached -Granulation Amt Small (1-33%) Medium (34-66%) None Present (0 %) -Granulation Quality [place] -Slough/Fibrin Yes Yes -Necrosis Amt Large (67-100%) Medium (34-66%) Large (67-100%) -Necrotic Tissue Type Adherent Slough Adherent Slough Adherent Slough -Texture (Beth-wound Skin Appearance) Assessed Assessed Assessed -Moisture (Beth-wound Skin Appearance) Assessed Assessed Assessed,Dry/ Scaly -Color (Beth-wound Skin Appearance) Assessed Assessed Assessed -Temperature (Beth-wound Skin No Abnormality No Abnormality No Abnormality Appearance) (Pt Warm) (Pt Warm) (Pt Warm) -Tenderness on Palpation (Beth-wound No No No Skin Appearance) -Ulcer Cleansing Rinsed/ Rinsed/ Irrigated with Irrigated with Saline Saline -Foul Odor after Cleansing No No No -Anesthetic Used 5% Lidocaine 5% Lidocaine 5% Lidocaine Gel Gel Gel Lower Limb Edema Present Yes Left Calf (cm) 39.6 35.5 36 Left Ankle (cm) 19.2 20.4 21.8 WC - Nurse 2 - General Ulcer CM Notes Start: 03/19/24 09:05 Freq: Status: Active Protocol: Activity Type Activity Date Activity User E-sign Co-sign Detail Recorded Client Recorded Date Recorded By Document 03/19/24 09:22 RONNY [id number] 03/19/24 09:26 Document 03/26/24 09:27 JF [id number] 03/26/24 09:37 Document 04/02/24 09:42 JF [id number] 04/02/24 09:45 03/19/24 03/26/24 04/02/24 09:22 09:27 09:42 Wound Center Nurse 2 #3 LT MED LE POST OP -Time 09:23 09:28 09:42 -Correct Patient Yes Yes Yes -Correct Side, Site, Position Yes Yes Yes -Correct Procedure Yes Yes Yes -Procedure Performed Yes Yes Yes -Type of Procedure Debridement Debridement Debridement -Clinical Debridement Subcutaneous Subcutaneous Subcutaneous -Tissue Removed Subcutaneous Subcutaneous Subcutaneous -Post Debridement (cm) - Length 7 6.4 6.4 -Post Debridement (cm) - Width 4 2.9 3.0 -Post Debridement (cm) - Depth 0.5 0.2 0.2 -Total Square (Post) (cm) 28 18.56 19.20 -Area of Debridement (cm) - Length 7 6.4 6.4 -Area of Debridement (cm) - Width 4 2.9 3.0 -Total Square (Area) (cm) 28 18.56 19.20 -Tunneling No No No -Undermining/Tunneling No No No -Circular Undermining No No No -Wound/Ulcer Outcome Not Healed Not Healed Not Healed -Ulcer Cleansing Rinsed/ Rinsed/ Rinsed/ Irrigated with Irrigated with Irrigated with Saline Saline Saline -Foul Odor after Cleansing No No No -Bioengineered Tissue No No No -Bleeding Controlled with Pressure Pressure Pressure -Treatment Response Procedure Procedure Procedure Tolerated Well Tolerated Well Tolerated Well -Offloading No No No -Debridement - Subq, 1st 20sq cm Yes Yes Yes -Debridement, SubQ, ea addt'l 20sq cm 1 or part thereof Pain Scale: 0-10 Numeric Is Patient Pain Free? Yes Yes Yes WC - Nurse 3 - General Ulcer D/C NN Start: 03/19/24 09:05 Freq: Status: Active Protocol: Activity Type Activity Date Activity User E-sign Co-sign Detail Recorded Client Recorded Date Recorded By Document 03/19/24 09:34 KW [id number] 03/19/24 09:34 KW Document 03/26/24 09:44 ML [id number] 03/26/24 09:46 ML Document 04/02/24 10:05 DL [id number] 04/02/24 10:06 DL 03/19/24 03/26/24 04/02/24 09:34 09:44 10:05 Wound Care Center Nurse 3 #3 LT MED LE POST OP -Ulcer Cleansing Rinsed/ Rinsed/ Irrigated with Irrigated with Saline Saline -Foul Odor after Cleansing No No -Negative Pressure Wound Therapy N/A -Primary Dressing Applied NonAdherent Promogran C Hydrogel ($), Contact Layer, Jorge Matter NonAdherent Promogran Contact Layer, Jorge Matter Promogran Jorge Matter -Other Dressing hydrogel, adaptic -Primary Dressing Covered/Secured with Dry Gauze & Dry Gauze & Dry Gauze & Roll Gauze, Roll Gauze Roll Gauze, Secured with Secured with Tape Tape -Promogran Jorge Matter 1 1 1 Left -Tubular Bandage Single Layer Single Layer Double Layer -Size of Tubigrip Used Size E Size E Size D -Size D ($) 1 -Size E ($) 1 1 -Stockings Yes Treatment Response Procedure Tolerated Well Pain Scale: 0-10 Numeric Is Patient Pain Free? Yes No Yes WC - Visit Discharge Discharge Condition Stable Stable Ambulatory Status Ambulatory, Ambulatory, Walker Walker Transportation Private Auto Private Auto Medication Reconcilliation completed & No provided to patient/care provider Clinical Summary of Care Provided Yes Facility Type Home Health Orders Sent Yes Assessment/Plan Assessment/Plan (1) Wound of left lower extremity: CODE(S): S81.802A - Unspecified open wound, left lower leg, initial encounter PLAN: Plan Healing well overall Wound care - Moistened jorge to the most superior opened area where there is the most depth, daily. To the rest of the superficial open areas place collagen hydrogel covered with Adaptic (over the entire cluster) and top with gauze/ ABD/Alva SAP daily. Wash with soap and water at the time of the dressing changes. Donor site is healed. Massage with lotion, Aquaphor or Vaseline daily to help keep area moisturized. Increase compression to double tubigrip to help with her edema. Encouraged her to keep her legs elevated when sitting to help with her edema. She has home health to help with her dressing changes and a very supportive daughter. Discussed plan of care with Dr. Enriquez. F/u in [address] Enriquez. Call or come in sooner if develop any concerns.
--- NOTE | 2024-04-16 09:48 | WC ---
PHOTO 04/02/24 LEFT NENITA MENDEZ
== END 2024-04-10 23:59 | disposition home or self-care (01) ==
LOC: WC 09:15
PROVIDERS: PCP Family Medicine; Referring Provider Surgery Plastic and Reconstructive Surgery; Visit Provider Nurse Practitioner Family
DX: S81.832A Puncture wound without foreign body, left lower leg, initial encounter (principal); I48.91 Unspecified atrial fibrillation; X58.XXXA Exposure to other specified factors, initial encounter; R60.0 Localized edema; I10 Essential (primary) hypertension; Z79.01 Long term (current) use of anticoagulants; Z79.890 Hormone replacement therapy; Z79.899 Other long term (current) drug therapy; Z86.718 Personal history of other venous thrombosis and embolism; Z87.39 Personal history of other diseases of the musculoskeletal system and connective tissue
CPT/HCPCS: 11042; 11045

== ENCOUNTER 2024-04-10 19:31 | Inpatient (IN) | payer MEDICARE, SELFPAY ==
--- NOTE | 2024-04-10 00:05 | RAD_ITS ---
INDICATION: fall, hypoxia EXAMINATION/TECHNIQUE: X-RAY - XR Chest 2 Views COMPARISON: 01/15/2023 FINDINGS: LIFE-SUPPORT AND LINES: 1. Transient pacer lead placement interval projecting in normal position. 2. No pneumothorax. HEART AND VESSELS: The cardiac silhouette, pulmonary vasculature have normal appearance. No evidence of congestive failure. LUNGS AND PLEURAL SPACES: Mild atelectasis at the LEFT lung base. Minimal atelectasis on the RIGHT. No airspace consolidation. No pulmonary mass is noted. MEDIASTINUM AND HILAR REGIONS: No masses adenopathy noted. No areas of calcification. Visualized upper airway is normal in position. BONY ELEMENTS: No acute bony changes noted. Findings of a right-sided vertebral plasty at T12. RAD/Chest PA and Lateral IMPRESSION: 1. Transvenous pacer leads place the interval. No pneumothorax. 2. No evidence of congestive failure. 3. Bibasilar atelectasis greater on the LEFT than RIGHT. No airspace consolidation. 4. Density in the RIGHT side of T12 consistent with vertebroplasty. Electronically Signed: New Claudio MD at 0:42 EST ,
[2024-04-10 19:31] VITALS: BP 108/77; PULSE 86; RESP 14; TEMP 36.6; O2SAT 91; BMI 36.5
--- NOTE | 2024-04-10 20:07 | CT_ITS ---
STUDY: CT BRAIN WITHOUT CONTRAST REASON FOR EXAM: Female, 83 years old. fall RADIATION DOSAGE (If Supplied By Facility): CTDIvol = ( 44.99 ) mGy, DLP = ( 863.60 ) mGycm TECHNIQUE: Transaxial CT imaging of the brain was performed without administration of intravenous contrast material. Individualized dose optimization techniques were used for this CT. COMPARISON: 07/25/2020 FINDINGS: Normal soft tissue structures. Normal calvarium. There is mild cerebral atrophy with widening of the extra-axial spaces and ventricular dilatation. There are areas of decreased attenuation within the white matter tracts of the supratentorial brain, consistent with microvascular disease changes. Normal basal ganglia and thalami. Normal brainstem. Normal cerebellum. There is no intracranial hemorrhage. There are no findings of an acute ischemic infarction. Normal visualized paranasal sinuses. CT/Brain/Head without Contrast IMPRESSION: Chronic involutional changes of the brain. Electronically Signed: New Bills MD at 21:09 EST ,
--- NOTE | 2024-04-10 20:12 | EKG12_ITS ---
Test Reason : DYSRHYTHMIA Blood Pressure : */* mmHG Vent. Rate : 62 BPM Atrial Rate : 62 BPM P-R Int : 156 ms QRS Dur : 80 ms QT Int : 470 ms P-R-T Axes : 65 -2 61 degrees QTcB Int : 477 ms Normal sinus rhythm Normal ECG Confirmed by ALEX LOWERY, ISIAH ([id number]), features editor OLEG PIZANO ([id number]) on 04/12/2024 6:13:07 AM Referred By: Confirmed By: ISIAH JOHNSON MD
--- NOTE | 2024-04-10 20:13 | RAD_ITS ---
STUDY: X-RAY - LEFT KNEE REASON FOR EXAM: Female, 83 years old. Injury/Pain TECHNIQUE: 4 view(s) of the knee. COMPARISON: None. FINDINGS: Normal visualized distal femur. Normal visualized proximal tibia and fibula. Normal proximal tibiofibular articulation. Status post total knee arthroplasty. The prosthesis appears located. No ostial lysis to suggest loosening.. The soft tissue structures are unremarkable. RAD/Knee 4 or More Views IMPRESSION: No acute fracture or dislocation. Status post total knee arthroplasty. Electronically Signed: New Bills MD at 21:16 EST ,
--- NOTE | 2024-04-10 20:13 | RAD_ITS ---
STUDY: X-RAY - LEFT FEMUR REASON FOR STUDY: Female, 83 years old. Injury/Pain TECHNIQUE: 2 view(s) of the femur. COMPARISON: None. FINDINGS: Normal visualized femur. Normal visualized soft tissue structure. Moderate joint space narrowing and osteophyte formation about the hip joint consistent with moderate arthrosis. Status post left total knee arthroplasty. RAD/Femur Min 2 Views IMPRESSION: No acute fracture or dislocation. Electronically Signed: New Bills MD at 21:15 EST ,
--- NOTE | 2024-04-10 20:13 | CT_ITS ---
STUDY: CT CERVICAL SPINE WITHOUT CONTRAST REASON FOR EXAM: Female, 83 years old. Injury/Pain RADIATION DOSAGE (If Supplied By Facility): CTDIvol = ( 25.45 ) mGy, DLP = ( 541.83 ) mGycm TECHNIQUE: High resolution transaxial imaging was performed without contrast material. Sagittal and coronal images were reconstructed. Individualized dose optimization techniques were used for this CT. COMPARISON: 07/25/2020 FINDINGS: Normal craniovertebral junction. There are degenerative changes of the anterior atlantoaxial articulation. Normal odontoid process. Normal cervical lordosis. Mild levoscoliosis centered at C5. Normal vertebral bodies and posterior osseous elements. C2-3: Mild left facet hypertrophy produces mild left neural foraminal stenosis. No central spinal stenosis. C3-4: No change in the 2 mm retrolisthesis of C3 on C4 with mild broad disc protrusion produces mild spinal stenosis and mild bilateral neural foraminal stenosis. C4-5: Normal endplates. Normal disc height and morphology. Normal central canal and intervertebral neuroforamina. C5-6: No change in the 2 mm retrolisthesis of C5 on C6 with a mild broad disc osteophyte complex which reduces mild spinal stenosis and mild bilateral neural foraminal stenosis. C6-7: Normal endplates. Normal disc height and morphology. Normal central canal and intervertebral neuroforamina. C7-T1: Normal endplates. Normal disc height and morphology. Normal central canal and intervertebral neuroforamina. Normal visualized soft tissue structures. CT/Spine Cervical without Contras IMPRESSION: No acute fracture or subluxation. Electronically Signed: New Bills MD at 21:14 EST ,
--- NOTE | 2024-04-10 20:14 | RAD_ITS ---
STUDY: X-RAY - PELVIS REASON FOR EXAM: Female, 83 years old. Injury/Pain TECHNIQUE: One view of the pelvis was obtained. COMPARISON: None. FINDINGS: There is a non-specific bowel gas pattern. Normal visualized soft tissue structures. Normal bilateral iliac wings, sacroiliac joints and visualized sacrum. Normal visualized bilateral superior and inferior pubic rami. Normal pubic symphysis. Normal ischial tuberosities. Normal visualized right femoral head. Normal right acetabulum. Normal right hip joint. There are osteoarthritic changes of the left femoral head with marginal osteophyte formation. Normal left acetabulum. There is moderate articular joint space narrowing of the left hip. RAD/Pelvis 1 or 2 Views IMPRESSION: No acute fracture or dislocation. Moderate left hip arthrosis. Electronically Signed: New Bills MD at 21:19 EST ,
[2024-04-10] MEDS: Morphine 4 MG/ML Syringe 6 MG IV (20:17)
[2024-04-10] MEDS: Ondansetron 4 MG/2 ML Vial IV (20:17)
[2024-04-10 20:29] LABS: Absolute Lymphocyte Count 1.62 X10^3/uL (0.83-4.51); Absolute Neutrophil Count 2.8 X10^3/uL (2.0-7.7); Basophil# 0.05 X10^3/uL; Basophil% 0.9 % (0-1); Eosinophil# 0.23 X10^3/uL; Eosinophils% 4.1 % (0-5); Hematocrit 38.7 % (37-47); Hemoglobin 12.1 g/dL (12.0-15.0); Lymphocyte # 1.62 X10^3/ul (0.83-4.51); Lymphocyte % 29.2 % (19-41); Mean Corp Hgb Conc 31.3 g/dL (32-36); Mean Corpuscular Hgb 29.1 pg (27.0-32.0); Mean Platelet Vol. 9.4 fl (6.2-12.0); Monocyte# 0.82 X10^3/uL; Monocyte% 14.8 % (0-10); NRBC Flagged by Analyzer 0 % (0-5); Neutrophil # 2.81 X10^3/uL (2.7-7.7); Neutrophil % 50.6 % (47-70); Platelet Count 269 K/mm3 (150-450); RBC Distribution Width CV 13.3 % (11.6-14.6); RBC Distribution Width SD 45.2 fl (35.1-43.9); Red Blood Count 4.16 M/mm3 (4.2-5.4); White Blood Count 5.6 K/mm3 (4.4-11.0)
[2024-04-10 20:31] VITALS: BP 150/71; PULSE 66; RESP 18; O2SAT 93
--- NOTE | 2024-04-10 20:40 | RAD_ITS ---
STUDY: X-RAY - LUMBAR SPINE REASON FOR EXAM: Female, 83 years old. Injury/Pain TECHNIQUE: 3 view(s) of the lumbar spine were obtained. COMPARISON: None FINDINGS: Normal lumbar lordosis. Mild levoscoliosis centered at L4. There is a normal alignment of the vertebrae. Chronic mild wedge compression fracture of T12 treated with vertebroplasty. Moderate loss of height and concavity the superior endplate of the L3 vertebral body consistent with a moderate compression fracture which may be acute, subacute, or chronic. Normal disc space heights. The soft tissue structures are unremarkable. RAD/Lumbar Spine 2 or 3 Views IMPRESSION: Moderate compression fracture of L3 which may be acute, subacute, chronic. Clinical correlation MRI may be useful. Electronically Signed: New Bills MD at 21:18 EST ,
[2024-04-10 20:41] LABS: Anion Gap 5 (5-15); BUN 12 mg/dL (7-18); BUN/Creat Ratio 11.9 RATIO (10-20); Calcium,Total 9.1 mg/dL (8.5-10.1); Chloride 107 mmol/L (98-107); Creatinine, Serum 1.01 mg/dL (0.55-1.02); EST Glomerular Filtration Rate 56 mL/min (>60); Est Glom Filt Rate - Afr Amer 67 mL/min (>60); Estimated Creatinine Clearance 48.45 ml/min; Glucose 103 mg/dL (74-106); Potassium 4.3 mmol/L (3.5-5.1); Sodium Level 141 mmol/L (136-145)
[2024-04-10 20:44] LABS: International Normalized Ratio 1.2; Prothrombin Time (Protime)PT. 15.6 SECONDS (11.7-14.9)
[2024-04-10 21:00] VITALS: BP 154/68; PULSE 67; RESP 18; O2SAT 92
--- NOTE | 2024-04-10 21:21 | CT_ITS ---
STUDY: CT LUMBAR SPINE WITHOUT CONTRAST REASON FOR EXAM: Female, 83 years old. trauma, abnormal xr RADIATION DOSAGE (If Supplied By Facility): CTDIvol = ( 24.16 ) mGy, DLP = ( 603.11 ) mGycm TECHNIQUE: The patient was scanned in a multi detector CT scanner. High resolution transaxial imaging was performed. Images were obtained from T12 to S1. Sagittal and coronal images were reconstructed. Individualized dose optimization techniques were used for this CT. COMPARISON: 03/17/2018, x-ray earlier today FINDINGS: Normal lumbar lordosis. Mild levoscoliosis centered at L4/L5. Moderate loss of height and concavity of the superior endplate of the L3 vertebral body consistent with a moderate compression fracture. No acute fracture lines suggestive of a chronic compression fracture. 2 mm retropulsion of the superior endplate in the spinal canal producing mild spinal stenosis. L1-2: Vacuum disc formation but no spinal stenosis or neural foraminal stenosis. L2-3: 2 mm retropulsion of the superior endplate of L3 into the spinal canal with a mild broad disc protrusion with vacuum disc formation produces mild spinal stenosis but no neural foraminal stenosis. L3-4: Normal endplates. Normal disc height and morphology. Normal bilateral facet joints. Normal central canal and bilateral lateral recesses. Normal bilateral intervertebral neural foramina. L4-5: Mild bilateral facet hypertrophy and moderate ligament flavum hypertrophy. Mild broad disc osteophyte complex produces mild spinal stenosis and mild bilateral neural foraminal stenosis. L5-S1: Moderate bilateral facet hypertrophy and mild ligament flavum hypertrophy. Moderate broad-based disc protrusion asymmetric leftward vacuum disc formation produces moderate spinal stenosis and moderate left neural foraminal stenosis. Normal visualized paraspinous soft tissue structures. CT/Spine Lumbar without Contrast IMPRESSION: Chronic moderate wedge compression fracture of L3 with 2 mm retropulsion of the superior endplate in the spinal canal producing mild spinal stenosis. Mild levoscoliosis with degenerative disc disease. Electronically Signed: Nwe Bills MD at 22:11 EST ,
--- NOTE | 2024-04-10 21:21 | CT_ITS ---
CT LEFT LOWER EXTREMITY WITH 3-D IMAGING CLINICAL INDICATION: pain, fall, neg xr TECHNIQUE: Axial CT images of the LEFT lower extremity was performed without IV contrast material. Coronal and sagittal reformats were provided. The protocol utilizes one or more of the following dose reduction techniques: automated exposure control, adjustment of mA and/or kV according to patient size,and/or use of iterative reconstruction technique. RADIATION DOSAGE (If Supplied By Facility): CTDIvol = ( 34.95 ) mGy, DLP = ( 963.27 ) mGycm COMPARISON: FINDINGS: Bones: Osseous structures are normal without evidence of fracture or dislocation. No lytic or blastic osseous masses. Moderate joint space narrowing and osteophyte formation of the hip joint consistent with moderate arthrosis. Soft Tissues: The deep soft tissue structures are unremarkable. The superficial soft tissues are unremarkable without evidence of edema, hematoma, or foreign body. CT/Extremity Lower without Contra IMPRESSION: No acute fracture or dislocation. Moderate left hip arthrosis. Electronically Signed: New Bills MD at 22:18 EST ,
[2024-04-10 22:00] VITALS: BP 137/58; PULSE 69; RESP 15; O2SAT 92
[2024-04-10 23:00] VITALS: BP 115/48; PULSE 65; RESP 24; O2SAT 94
[2024-04-10 23:33] VITALS: O2SAT 95
[2024-04-11] VITALS (12 sets, daily range): BP systolic 96–139; BP diastolic 42–68; PULSE 62–67; RESP 16–18; TEMP 36.2–36.9; O2SAT 85–98; BMI 31.4
--- NOTE | 2024-04-11 00:44 | ED.VIS.FALL ---
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 Patient arrived via EMS. Patient states she was feeling fine today. She was using the restroom and they have a toilet riser over it. She went to stand up and it is slipped causing her to fall forward. She hit the door frame of the bathroom with her left hip and fell to the ground on her left side. She complained of low back and hip pain. She complained of neck pain. She does not think she hit her head or loss conscious. Denies any associate numbness or tingling. No other complaints or concerns reported at this time [facility] Medical History Wears hearing aid Loss of hearing Wears glasses Wears partial dentures Cancer Open wound Thyroid disease Walker as ambulation aid High cholesterol Non-smoker History of stress test History of echocardiogram History of pacemaker Cardiology follow-up encounter Pacemaker Open wound of right buttock with complication Traumatic hematoma of buttock Hematoma of right lower extremity Depression Vitamin D deficiency Gastrointestinal bleed Rheumatoid arthritis Hypothyroidism Compression fracture of L3 vertebra Acute blood loss anemia GI bleed Peptic ulcer disease 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 Immunosuppressed status FDC current use of anticoagulant DVT (deep venous thrombosis) Cellulitis of left lower extremity Hyperlipidemia Paroxysmal atrial fibrillation History of Clostridium difficile Home Medications ?Medication ?Instructions ?Recorded ?Last Taken ?Type handicap placcard #1 ea 05/07/20 Unknown Rx atorvastatin 20 mg tablet 20 mg PO QHS cholesterol #90 tabs 09/25/21 02/02/24 Rx apixaban 5 mg tablet (Eliquis) 5 mg PO BID blood thinner 04/27/22 02/07/24 History cholecalciferol (vitamin D3) 25 50 mcg (2 x 25 mcg (1,000 unit)) 02/21/23 Unknown Rx mcg (1,000 unit) tablet PO DAILY suppliment #0 tabs L.acidophil,salivari-Bifido 1 cap PO DAILY gut health 01/29/24 02/03/24 History bifidum-Strep thermoph 175 mg capsule (Acidophilus Probiotic Blend) amiodarone 200 mg tablet 200 mg PO DAILY heart 01/29/24 02/08/24 History duloxetine 60 mg capsule,delayed 60 mg PO DAILY mood 01/29/24 02/03/24 History release mirtazapine 15 mg tablet 30 mg PO QHS mood 01/29/24 02/02/24 History golimumab 12.5 mg/mL intravenous See Rx Instructions IV .COMPLEX 01/31/24 12/07/23 History solution (Simponi ARIA) arthritis acetaminophen 500 mg tablet 1,000 mg (2 x 500 mg) PO Q6H PRN 02/17/24 Unknown Rx PRN Pain Score 1-5 #0 tabs d-mannose 500 mg capsule (AZO 1,000 mg PO BID 04/10/24 Unknown History D-Mannose) levothyroxine 50 mcg tablet 50 mcg PO DAILY 04/10/24 Unknown History lorazepam 0.5 mg tablet 0.5 mg PO BID PRN PRN anxiety 04/10/24 Unknown History Allergy/AdvReac Type Severity Reaction Status Date / Time cephalexin monohydrate (From Allergy Hives Verified 04/10/24 19:32 Keflex) ethchlorvynol (From Placidyl) Allergy Unknown Verified 04/10/24 19:32 Penicillins (PCN) Allergy Unknown Verified 04/10/24 19:32 Sulfa (Sulfonamide Allergy Rash Verified 04/10/24 19:32 Antibiotics) sulfamethoxazole (From Allergy Unknown Verified 04/10/24 19:32 Septra) trimethoprim (From Septra) Allergy Unknown Verified 04/10/24 19:32 Family History Father CAD (coronary artery disease) Mother Breast cancer breast Surgical History History of appendectomy History of evacuation of hematoma (03/20/18) History of right knee joint replacement History of bunionectomy of both great toes H/O shoulder surgery History of arthroplasty of left knee H/O total hysterectomy H/O colectomy Hx of cholecystectomy History of tonsillectomy and adenoidectomy History of left heart catheterization (1999) surgical debridement left lower extremity (10/2014) Social History household members: spouse Smoking Status: Never smoker alcohol intake: current alcohol intake frequency: holidays/special occasions only Alcohol type: wine substance use type: does not use caffeine: Yes Type: coffee Number of servings: 2 ROS ROS ED Cardiovascular Cardiovascular: Denies chest pain Respiratory/Chest Respiratory/Chest: Denies cough or dyspnea Gastrointestinal Gastrointestinal: Denies abdominal pain, nausea or vomiting Musculoskeletal Musculoskeletal: Reports back pain and other Details: left hip , thigh and knee pain Integumentary Denies Abrasions or rash Neurologic Neurologic: Denies headache(s) or weakness Hematologic/Lymphatic Hematologic/Lymphatic: Reports easy bleeding, easy bruising and other Details: on Eliquis EXAM Physical Exam Const Vital Signs: 04/10/24 19:31 04/10/24 20:31 04/10/24 21:00 Temperature 97.8 F Temperature Source Oral Pulse Rate 86 66 67 Respiratory Rate 14 18 18 Blood Pressure 108/77 150/71 H 154/68 H Blood Pressure Mean 87 97 96 Pulse Ox 91 93 92 Oxygen Delivery Method Nasal Cannula Nasal Cannula Oxygen Flow Rate (L/min) 3 3 04/10/24 22:00 04/10/24 23:00 04/11/24 00:00 Temperature Temperature Source Pulse Rate 69 65 67 Respiratory Rate 15 24 H 18 Blood Pressure 137/58 H 115/48 L 103/64 Blood Pressure Mean 84 70 77 Pulse Ox 92 94 95 Oxygen Delivery Method Nasal Cannula Nasal Cannula Nasal Cannula Oxygen Flow Rate (L/min) 3 3 1 04/11/24 01:00 Temperature Temperature Source Pulse Rate 64 Respiratory Rate 17 Blood Pressure 102/60 Blood Pressure Mean 74 Pulse Ox 92 Oxygen Delivery Method Nasal Cannula Oxygen Flow Rate (L/min) 1 Positive well nourished and well developed General Appearance ED: well developed and NAD HEENT Reports normocephalic and TM's normal bilaterally atraumatic Eyes PERRL Neck supple Neck Narrative: Mild tenderness palpation of the lower cervical spine Chest Wall inspection of chest normal Resp normal respiratory effort and clear to auscultation bilaterally Auscultation: Negative for wheezes or diminished lung sounds Cardio regular rate and regular rhythm Cardio Narrative: 2+ radial DP pulses present GI non-tender and non-distended Extremity Extremity Narrative: No obvious deformity. Some slight pain with range of motion of the left hip. No tenderness to palpation over the greater trochanter. Pelvis is stable. Mild tenderness palpation over the knee/fibular head where there is a small area of bruising. No joint effusion present. Compartments are soft. No tenderness to the ankle. No tense palpation and normal range of motion of the other extremities. Neuro oriented x3, moves all extremities, no focal motor deficits and no sensory deficits noted Psych mental status grossly normal Skin Skin Narrative: Wound that is bandaged, clean and dry of the left lower leg?patient is in wound care for this and sees Dr. Enriquez. MDM MDM MDM Narrative Medical decision making narrative: Patient is evaluated for injuries and pain after what sounds like a mechanical fall. She was in her normal state of health before this. Her medical receptionist gave out on her which caused her to fall. Patient is on Eliquis. Entirely sure if she hit her head or not so will obtain CT of the brain. CT of the cervical spine obtained given her age and the fact that her neck hurts on exam. X-ray of the lumbar spine, pelvis, left hip, left femur and knee are obtained. X-rays reviewed by myself as well as radiology did not show any acute fractures however she does have L3 compression fracture with unclear chronicity versus acuity per radiology. Family does tell me that patient has a history of multiple occult fractures requiring advanced imaging that were not shown on x-rays. CT of the lumbar spine for further evaluation of the compression fracture at L3 as well as of the left hip is obtained. CT shows moderate left hip arthrosis and chronic moderate wedge compression sure of L3 with 2 mm retropulsion of the superior endplate of the spinal canal producing mild spinal stenosis. Patient does not have pinpoint tenderness in this area. Her pain is improved after 6 mg IV morphine. Patient is also given dose of IV Zofran. Patient is ambulated does well however pulse ox during ambulation is noted to be low. Patient did have desaturation with receiving morphine but family states that is normal for her to desaturate with pain medication. Patient continues to be around 86 to 88% but is in no respiratory distress. Chest x-ray is added on as patient is noted to have bruising over her left thoracic back around her scapula and to ensure she does not have an associated pneumothorax or other acute pathology that could be causing her hypoxia. Breath sounds are clear. Chest x-ray viewed by myself as well as radiology does not show any acute process. Does show atelectasis. Patient reevaluated. She is resting comfortably but still 90%-92% on 1 L. She states that she has been dizzy since she tried to walk. Family also notes that her blood pressure is low for her. Patient and family do not feel comfortable with her going home given his new oxygen requirement and borderline low blood pressure as well as the fall she had today. Seems quite reasonable to bring her in for further respiratory monitoring and blood pressure monitoring as well as PT/OT evaluation. Will add on COVID flu test. Will give patient gentle IV fluids. Will contact hospitalist for admission. Case discussed with Dr. Tsai. She is brought in for observation to [facility] floor. Lab Data Attestation: I reviewed the patient's lab results. Labs: Laboratory Results - last 24 hr 04/10/24 20:19 WBC 5.6 RBC 4.16 L Hgb 12.1 Hct 38.7 MCV 93.0 MCH 29.1 MCHC 31.3 L RDW Std Deviation 45.2 H RDW Coeff of Jessica 13.3 Plt Count 269 MPV 9.4 Immature Gran % (Auto) 0.400 Neut % (Auto) 50.6 Lymph % (Auto) 29.2 [place] % (Auto) 14.8 H Eos % (Auto) 4.1 Baso % (Auto) 0.9 Absolute Neuts (auto) 2.8 Absolute Lymphs (auto) 1.62 Nucleated RBC % 0 PT 15.6 H INR 1.2 Sodium 141 Potassium 4.3 Chloride 107 Carbon Dioxide 29.0 Anion Gap 5 BUN 12 Creatinine 1.01 Estim Creat Clear Calc 48.45 Est GFR (MDRD) Af Amer 67 Est GFR (MDRD) Non-Af 56 L BUN/Creatinine Ratio 11.9 Glucose 103 Calcium 9.1 Radiography Diagnostic Testing: Clinical Impression(s) from Imaging Studies Chest X-Ray 04/10/24 00:05 IMPRESSION: 1. Transvenous pacer leads place the interval. No pneumothorax. 2. No evidence of congestive failure. 3. Bibasilar atelectasis greater on the LEFT than RIGHT. No airspace consolidation. 4. Density in the RIGHT side of T12 consistent with vertebroplasty. Electronically Signed: New Claudio MD at 0:42 EST , Brain CT 04/10/24 20:07 IMPRESSION: Chronic involutional changes of the brain. Electronically Signed: New Bills MD at 21:09 EST , Cervical Spine CT 04/10/24 20:13 IMPRESSION: No acute fracture or subluxation. Electronically Signed: New Bills MD at 21:14 EST , Femur X-Ray 04/10/24 20:13 IMPRESSION: No acute fracture or dislocation. Electronically Signed: New Bills MD at 21:15 EST Reading Location ID and State: [id number] / [employer] , Service support , Knee X-Ray 04/10/24 20:13 IMPRESSION: No acute fracture or dislocation. Status post total knee arthroplasty. Electronically Signed: New Bills MD at 21:16 EST Reading Location ID and State: [id number] / [employer] , Service support , Pelvis X-Ray 04/10/24 20:14 IMPRESSION: No acute fracture or dislocation. Moderate left hip arthrosis. Electronically Signed: New Bills MD at 21:19 EST , Lumbar Spine X-Ray 04/10/24 20:40 IMPRESSION: Moderate compression fracture of L3 which may be acute, subacute, chronic. Clinical correlation MRI may be useful. Electronically Signed: New Bills MD at 21:18 EST Reading Location ID and State: [id number] / [employer] , Service support , Lower Extremity CT 04/10/24 21:21 IMPRESSION: No acute fracture or dislocation. Moderate left hip arthrosis. Electronically Signed: New Bills MD at 22:18 EST Reading Location ID and State: [id number] / [employer] , Service support , Lumbar Spine CT 04/10/24 21:21 IMPRESSION: Chronic moderate wedge compression fracture of L3 with 2 mm retropulsion of the superior endplate in the spinal canal producing mild spinal stenosis. Mild levoscoliosis with degenerative disc disease. 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 Prescriptions: No Action (DME) handicap placcard See Rx Instructions .Route .MEDSUPPLY Qty: 1 0RF Rx Instructions: dx: severe OA expires: 5 years Eliquis 5 mg Tablet 5 mg PO BID cholecalciferol (vitamin D3) 25 mcg (1,000 unit) Tablet 50 mcg PO DAILY Qty: 0 0RF amiodarone 200 mg tablet 200 mg PO DAILY duloxetine 60 mg capsule,delayed release(DR/EC) 60 mg PO DAILY L.acidoph,saliva-B.bif-S.therm [Acidophilus Probiotic Blend] 175 mg capsule 1 cap PO DAILY mirtazapine 15 mg Tablet 30 mg PO QHS Simponi ARIA 12.5 mg/mL solution See Rx Instructions IV .COMPLEX Patient Comments: INFUSE 2MG/KG IV EVERY 8 WEEKS Rx Instructions: intravenously every 8 weeks; acetaminophen 500 mg Tablet 1,000 mg PO Q6H PRN PRN (Reason: Pain Score 1-5) Qty: 0 0RF lorazepam 0.5 mg tablet 0.5 mg PO BID PRN PRN (Reason: anxiety) levothyroxine 50 mcg tablet 50 mcg PO DAILY AZO D-Mannose 500 mg capsule 1,000 mg PO BID atorvastatin 20 mg tablet 20 mg PO QHS Qty: 90 3RF Primary Care Provider: Mauricio Barney Referrals: Mauricio Barney MD [Primary Care Provider] - Print Language: Indonesian Disposition Disposition: Acute Care [facility]
--- NOTE | 2024-04-11 01:13 | HP.PCM.HOS_ITS ---
HPI - General General Date of Admission: 04/11/24 Date of Service: 04/11/24 Chief Complaint: Fall HPI Narrative BRADLEY GILMORE, is a 83 F who presented to the emergency department at [facility] late on 04/10/2024 due to a fall. Patient was sitting on a riser for the toilet seat at which time one of the legs broke off and she fell to the floor. She was unable to get up independently and her eventually found her on the floor after her cat led him to her. She was brought in by EMS and reported she was feeling fine. When she fell she hit the door frame of the bathroom and her left hip and fell to the ground on her left side. On presentation she was complaining of low back pain and hip pain as well as some neck pain. She denied any loss of consciousness. She is on Eliquis at baseline. Extensive imaging was performed and found to be negative and the plan was to discharge her home however she was found to be hypoxic on assessment and required 1 L of oxygen to maintain sats greater than 88%. Given her hypoxia it was felt that she would require admission. She was given morphine for pain upon presentation. From a respiratory standpoint she was completely asymptomatic. Vital signs on presentation showed a temperature of 97.8, heart rate 86, respiratory is 14, blood pressure is 108/77 and pulse ox was 91%. She was placed initially on 3 L and weaned to 1 L. CBC was unremarkable other than mild monocytosis on her differential at 14.8% however this does not appear to be new. Coags are slightly elevated as to be expected on Eliquis. Chemistry panel was unremarkable. She had extensive imaging including a CT of the brain, CT of the cervical spine, femur and pelvic x-rays, knee x-ray, lumbar spine x-ray, CT of the lower extremity and CT of the lumbar spine. The only significant abnormality that was noted on any of the imaging was a chronic compression fracture in the lumbar spine L2 and L3. As noted the initial intent was to discharge her home however with her hypoxia it was felt she would require observation overnight. [facility] Medical History Wears hearing aid Loss of hearing Wears glasses Wears partial dentures Cancer Open wound Thyroid disease Walker as ambulation aid High cholesterol Non-smoker History of stress test History of echocardiogram History of pacemaker Cardiology follow-up encounter Pacemaker Open wound of right buttock with complication Traumatic hematoma of buttock Hematoma of right lower extremity Depression Vitamin D deficiency Gastrointestinal bleed Rheumatoid arthritis Hypothyroidism Compression fracture of L3 vertebra Acute blood loss anemia GI bleed Peptic ulcer disease 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 DVT (deep venous thrombosis) Cellulitis of left lower extremity Hyperlipidemia Paroxysmal atrial fibrillation History of Clostridium difficile Home Medications ?Medication ?Instructions ?Recorded ?Last Taken ?Type handicap placcard #1 ea 05/07/20 Unknown Rx atorvastatin 20 mg tablet 20 mg PO QHS cholesterol #90 tabs 09/25/21 02/02/24 Rx apixaban 5 mg tablet (Eliquis) 5 mg PO BID blood thinner 04/27/22 02/07/24 History cholecalciferol (vitamin D3) 25 50 mcg (2 x 25 mcg (1,000 unit)) 02/21/23 Unknown Rx mcg (1,000 unit) tablet PO DAILY suppliment #0 tabs L.acidophil,salivari-Bifido 1 cap PO DAILY gut health 01/29/24 02/03/24 History bifidum-Strep thermoph 175 mg capsule (Acidophilus Probiotic Blend) amiodarone 200 mg tablet 200 mg PO DAILY heart 01/29/24 02/08/24 History duloxetine 60 mg capsule,delayed 60 mg PO DAILY mood 01/29/24 02/03/24 History release mirtazapine 15 mg tablet 30 mg PO QHS mood 01/29/24 02/02/24 History golimumab 12.5 mg/mL intravenous See Rx Instructions IV .COMPLEX 01/31/24 12/07/23 History solution (Simponi ARIA) arthritis acetaminophen 500 mg tablet 1,000 mg (2 x 500 mg) PO Q6H PRN 02/17/24 Unknown Rx PRN Pain Score 1-5 #0 tabs d-mannose 500 mg capsule (AZO 1,000 mg PO BID 04/10/24 Unknown History D-Mannose) levothyroxine 50 mcg tablet 50 mcg PO DAILY 04/10/24 Unknown History lorazepam 0.5 mg tablet 0.5 mg PO BID PRN PRN anxiety 04/10/24 Unknown History Allergy/AdvReac Type Severity Reaction Status Date / Time cephalexin monohydrate (From Allergy Hives Verified 12/31/24 19:32 Keflex) ethchlorvynol (From Placidyl) Allergy Unknown Verified 04/10/24 19:32 Penicillins (PCN) Allergy Unknown Verified 04/10/24 19:32 Sulfa (Sulfonamide Allergy Rash Verified 04/10/24 19:32 Antibiotics) sulfamethoxazole (From Allergy Unknown Verified 04/10/24 19:32 Septra) trimethoprim (From Septra) Allergy Unknown Verified 04/10/24 19:32 Family History Father CAD (coronary artery disease) Mother Breast cancer breast Surgical History History of appendectomy History of evacuation of hematoma (03/20/18) History of right knee joint replacement History of bunionectomy of both great toes H/O shoulder surgery History of arthroplasty of left knee H/O total hysterectomy H/O colectomy Hx of cholecystectomy History of tonsillectomy and adenoidectomy History of left heart catheterization (1999) surgical debridement left lower extremity (10/2014) Social History household members: spouse Smoking Status: Never smoker alcohol intake: current alcohol intake frequency: holidays/special occasions only Alcohol type: wine substance use type: does not use caffeine: Yes Type: coffee Number of servings: 2 ROS Constitutional Constitutional: Denies anorexia, change in weight, chills, fatigue, fever(s), malaise, night sweats, weakness or other Eyes Eyes: Denies blurry vision, change in eye color, change in vision, discharge from eye(s), double vision, erythema, eye pain, loss of vision or other ENT HEENT: Denies abnormal hearing, dysphagia, ear pain, epistaxis, headache(s), hearing loss, nasal congestion, nasal discharge, post nasal drip, sinus pressure, sore throat or other Cardiovascular Cardiovascular: Denies chest pain, claudication, dyspnea on exertion, edema, lightheadedness, orthopnea, palpitations, paroxysmal nocturnal dyspnea, rapid heart rate, syncope or other Respiratory/Chest Respiratory/Chest: Denies cough, dyspnea, excessive phlegm production, hemoptysis, productive cough, shortness of breath at rest, shortness of breath with exertion, wheezing or other Gastrointestinal Gastrointestinal: Denies abdominal pain, coffee ground emesis, constipation, diarrhea, dyspepsia, hematemesis, hematochezia, loose stools, melena, nausea, vomiting or other Genitourinary Genitourinary: Denies burning urination, difficulty urinating, dysuria, hematuria, nocturia, urinary frequency, urinary hesitancy, urinary incontinence, urinary urgency or other Musculoskeletal Musculoskeletal: Reports back pain, joint pain, joint stiffness and neck pain; Denies arthralgias, joint swelling, myalgias or other Neurologic Neurologic: Denies abnormal gait, abnormal speech, confusion, disequilibrium, dizziness, focal weakness, headache(s), numbness, paresthesias, seizure-like activity, seizures, syncope, tingling, tremor(s) or other Psychiatric Psychiatric: Denies anxiety, depression, homicidal ideation, suicidal ideation or other Endocrine Endocrinology: Denies change in body appearance, cold intolerance, excessive sweating, heat intolerance, polydipsia, polyuria or other Hematologic/Lymphatic Hematologic/Lymphatic: Denies anemia, easy bleeding, easy bruising, lymphadenopathy or other Allergic/Immunologic Allergic/Immunologic: Denies rhinitis, hives, eczemia, asthma or other Vital Signs Vital Signs Vital Signs: 04/10/24 19:31 04/10/24 20:31 04/10/24 21:00 Temperature 97.8 F Temperature Source Oral Pulse Rate 86 66 67 Respiratory Rate 14 18 18 Blood Pressure 108/77 150/71 H 154/68 H Blood Pressure Mean 87 97 96 Pulse Ox 91 93 92 Oxygen Delivery Method Nasal Cannula Nasal Cannula Oxygen Flow Rate (L/min) 3 3 04/10/24 22:00 04/10/24 23:00 04/11/24 00:00 Temperature Temperature Source Pulse Rate 69 65 67 Respiratory Rate 15 24 H 18 Blood Pressure 137/58 H 115/48 L 103/64 Blood Pressure Mean 84 70 77 Pulse Ox 92 94 95 Oxygen Delivery Method Nasal Cannula Nasal Cannula Nasal Cannula Oxygen Flow Rate (L/min) 3 3 1 04/11/24 01:00 Temperature Temperature Source Pulse Rate 64 Respiratory Rate 17 Blood Pressure 102/60 Blood Pressure Mean 74 Pulse Ox 92 Oxygen Delivery Method Nasal Cannula Oxygen Flow Rate (L/min) 1 Weight Weight: 96.6 kg Body Mass Index (BMI) 36.5 Results Lab / Micro Data 04/10/24 20:19 04/10/24 20:19 Labs: Laboratory Results - last 24 hr 04/10/24 20:19: WBC 5.6, RBC 4.16 L, Hgb 12.1, Hct 38.7, MCV 93.0, MCH 29.1, M CHC 31.3 L, RDW Std Deviation 45.2 H, RDW Coeff of Jessica 13.3, Plt Count 269, MPV 9.4, Immature Gran % (Auto) 0.400, Neut % (Auto) 50.6, Lymph % (Auto) 29.2, [place] % (Auto) 14.8 H, Eos % (Auto) 4.1, Baso % (Auto) 0.9, Absolute Neuts (auto) 2.8, Absolute Lymphs (auto) 1.62, Nucleated RBC % 0, PT 15.6 H, INR 1.2, Sodium 141, Potassium 4.3, Chloride 107, Carbon Dioxide 29.0, Anion Gap 5, BUN 12, Creatinine 1.01, Estim Creat Clear Calc 48.45, Est GFR (MDRD) Af Amer 67, Est GFR (MDRD) Non-Af 56 L, BUN/Creatinine Ratio 11.9, Glucose 103, Calcium 9.1 Rhythm Strip Rhythm Strip: A-fib Rate: 62 Imaging Radiology Impression Chest X-Ray 04/10/24 00:05 IMPRESSION: 1. Transvenous pacer leads place the interval. No pneumothorax. 2. No evidence of congestive failure. 3. Bibasilar atelectasis greater on the LEFT than RIGHT. No airspace consolidation. 4. Density in the RIGHT side of T12 consistent with vertebroplasty. Electronically Signed: New Claudio MD at 0:42 EST , Brain CT 04/10/24 20:07 IMPRESSION: Chronic involutional changes of the brain. Electronically Signed: New Bills MD at 21:09 EST , Cervical Spine CT 04/10/24 20:13 IMPRESSION: No acute fracture or subluxation. Electronically Signed: New Bills MD at 21:14 EST Reading Location ID and State: [id number] / [employer] , Service support , Femur X-Ray 04/10/24 20:13 IMPRESSION: No acute fracture or dislocation. Electronically Signed: New Bills MD at 21:15 EST Reading Location ID and State: [email or web address] / [employer] , Service support , Knee X-Ray 04/10/24 20:13 IMPRESSION: No acute fracture or dislocation. Status post total knee arthroplasty. Electronically Signed: New Bills MD at 21:16 EST Reading Location ID and State: [email or web address] / [employer] , Service support , Pelvis X-Ray 04/10/24 20:14 IMPRESSION: No acute fracture or dislocation. Moderate left hip arthrosis. Electronically Signed: New Bills MD at 21:19 EST Reading Location ID and State: [email or web address] / [employer] , Service support , Lumbar Spine X-Ray 04/10/24 20:40 IMPRESSION: Moderate compression fracture of L3 which may be acute, subacute, chronic. Clinical correlation MRI may be useful. Electronically Signed: New Bills MD at 21:18 EST Reading Location ID and State: [email or web address] / [employer] , Service support , Lower Extremity CT 04/10/24 21:21 IMPRESSION: No acute fracture or dislocation. Moderate left hip arthrosis. Electronically Signed: New Bills MD at 22:18 EST , Lumbar Spine CT 04/10/24 21:21 IMPRESSION: Chronic moderate wedge compression fracture of L3 with 2 mm retropulsion of the superior endplate in the spinal canal producing mild spinal stenosis. Mild levoscoliosis with degenerative disc disease. Electronically Signed: eNw Bills MD at 22:11 EST , Assessment & Plan Assessment/Plan (1) Hypoxia: (2) Fall: PLAN: Plan Acute hypoxia -Etiology is unclear -May related to morphine -Encourage incentive spirometry and Acapella -COVID/flu/RSV PCR is pending however patient has no respiratory symptoms -Does have some crackles at the bases bilaterally with no signs of volume overload on the chest x-ray -Suspect atelectasis at this point-and continue to monitor Fall -Equipment failure related -PT/OT consulted as I suspect she will be somewhat sore tomorrow -All imaging is negative for any acute findings -Scheduled Tylenol 1 g 3 times daily -oxycodone 2.5 to 5 mg every 4 hours as needed -Case management/social work consulted for assistance with discharge planning if patient has any issues with ambulation and needs home health versus placement Left lower extremity wound -Follows at the wound center -Dressing in place -Dr. Enriquez is following from plastic surgery -Continued outpatient follow-up -Consult wound nurse for assistance while hospitalized Paroxysmal atrial fibrillation -Previous ablation -Continue amiodarone 200 mg daily -Continue Eliquis 5 mg p.o. twice daily Hypothyroidism -Continue levothyroxine -Check TSH Depression -Continue home duloxetine -Continue home mirtazapine Hyperlipidemia -Continue home statin History of DVT -Continue home Eliquis History of GI bleed/peptic ulcer disease -Patient is not on any PPI -Hemoglobin is stable -monitor hemoglobin closely DVT prophylaxis -Continue home Eliquis CODE STATUS -Full code as verified prior to admission in the emergency department with daughter at bedside Charges/Coding Visit Charges Inpatient E&M: 64706 Init Hosp L2
[2024-04-11] MEDS: 0.9% Normal Saline (1000mL) 1,000 ML 150 ML IV (01:14)
[2024-04-11 05:24] LABS: Absolute Lymphocyte Count 1.38 X10^3/uL (0.83-4.51); Basophil# 0.05 X10^3/uL; Basophil% 0.8 % (0-1); Eosinophils% 3.1 % (0-5); Hematocrit 37.1 % (37-47); Hemoglobin 11.5 g/dL (12.0-15.0); Lymphocyte # 1.38 X10^3/ul (0.83-4.51); Lymphocyte % 21.4 % (19-41); Mean Corpuscular Hgb 29.6 pg (27.0-32.0); Mean Corpuscular Volume 95.6 fL (81-99); Mean Platelet Vol. 9.4 fl (6.2-12.0); Monocyte# 0.83 X10^3/uL; Monocyte% 12.9 % (0-10); NRBC Flagged by Analyzer 0 % (0-5); Neutrophil # 3.97 X10^3/uL (2.7-7.7); Neutrophil % 61.5 % (47-70); Platelet Count 250 K/mm3 (150-450); RBC Distribution Width CV 13.4 % (11.6-14.6); RBC Distribution Width SD 47.3 fl (35.1-43.9); Red Blood Count 3.88 M/mm3 (4.2-5.4); White Blood Count 6.5 K/mm3 (4.4-11.0)
[2024-04-11 06:04] LABS: ALB/GLOB Ratio 0.9 RATIO (0.9-2.4); AST(SGOT) 30 U/L (15-37); Alanine Aminotransfer ALT/SGPT 22 U/L (13-56); Albumin, Serum 3.1 g/dL (3.2-5.0); Alkaline Phosphatase 63 U/L (45-117); Anion Gap 3 (5-15); BUN 13 mg/dL (7-18); BUN/Creat Ratio 10.7 RATIO (10-20); Calcium,Total 8.9 mg/dL (8.5-10.1); Chloride 108 mmol/L (98-107); Creatinine, Serum 1.22 mg/dL (0.55-1.02); EST Glomerular Filtration Rate 45 mL/min (>60); Est Glom Filt Rate - Afr Amer 54 mL/min (>60); Estimated Creatinine Clearance 37.09 ml/min; Globulin 3.6 g/dL (2.2-4.2); Glucose 115 mg/dL (74-106); Phosphorus 4.7 mg/dL (2.5-4.9); Potassium 4.2 mmol/L (3.5-5.1); Protein, Total 6.7 g/dL (6.4-8.2); Sodium Level 140 mmol/L (136-145)
[2024-04-11] MEDS: Acetaminophen 500 MG Tablet 1000 MG PO ×3 (08:17→22:21)
[2024-04-11] MEDS: Levothyroxine 50 MCG Tablet PO (08:17)
[2024-04-11] MEDS: DULoxetine Hcl 60 MG Capsule PO (10:37)
[2024-04-11] MEDS: Amiodarone 200 MG Tablet PO (10:37)
[2024-04-11] MEDS: Cholecalciferol (VIT D3) 25 MCG TABLET (1,000 UNITS) 50 MCG PO (10:37)
[2024-04-11] MEDS: APIXABAN 5 MG TABLET PO ×2 (10:37→22:21)
[2024-04-11] MEDS: Lactobacillis Acidophilus 1 CAP PO (10:38)
[2024-04-11] MEDS: Atorvastatin Calcium 20 MG Tablet PO (22:21)
[2024-04-11] MEDS: Mirtazapine 30 MG Tablet PO (22:21)
[2024-04-12 05:01] VITALS: BP 134/62; PULSE 63; RESP 16; TEMP 36.5; O2SAT 96
[2024-04-12] MEDS: Levothyroxine 50 MCG Tablet PO (05:03)
[2024-04-12] MEDS: Acetaminophen 500 MG Tablet 1000 MG PO (05:03)
[2024-04-12 06:00] VITALS: BMI 32.2
[2024-04-12 06:49] VITALS: O2SAT 85; O2SAT 93
[2024-04-12 07:04] VITALS: O2SAT 95
[2024-04-12 07:14] LABS: Anion Gap 5 (5-15); BUN 19 mg/dL (7-18); BUN/Creat Ratio 15.6 RATIO (10-20); Calcium,Total 8.6 mg/dL (8.5-10.1); Chloride 106 mmol/L (98-107); Creatinine, Serum 1.22 mg/dL (0.55-1.02); EST Glomerular Filtration Rate 45 mL/min (>60); Est Glom Filt Rate - Afr Amer 54 mL/min (>60); Estimated Creatinine Clearance 37.55 ml/min; Glucose 99 mg/dL (74-106); Sodium Level 140 mmol/L (136-145)
[2024-04-12 07:20] VITALS: O2SAT 95
[2024-04-12 07:45] VITALS: BP 138/74; PULSE 64; RESP 18; TEMP 36.3; O2SAT 91; O2SAT 96; O2SAT 97
[2024-04-12] MEDS: Lactobacillis Acidophilus 1 CAP PO (07:47)
[2024-04-12] MEDS: Amiodarone 200 MG Tablet PO (07:47)
[2024-04-12] MEDS: APIXABAN 5 MG TABLET PO (07:47)
[2024-04-12] MEDS: DULoxetine Hcl 60 MG Capsule PO (07:47)
[2024-04-12] MEDS: Cholecalciferol (VIT D3) 25 MCG TABLET (1,000 UNITS) 50 MCG PO (07:47)
--- NOTE | 2024-04-12 08:17 | DCINST_ITS ---
Discharge Instructions Diet Discharge Diet: Low fat / Low cholesterol DC O2, CPAP, BIPAP needs RN Home O2 Qualification: Home O2 Qualification: Is the patient on home oxygen No 04/12/24 06:49 Home O2 Qualification: AT REST 1- Pulse Ox at rest 85 04/12/24 06:49 2- Pulse Ox at rest 93 04/12/24 06:49 2- Oxygen Flow Rate at rest 1 04/12/24 06:49 Home O2 Qualification: WITH AMBULATION 1- Pulse Ox with ambulation 93 04/12/24 06:49 1- Oxygen Flow Rate with 1 04/12/24 06:49 ambulation PSN CPAP & BiPAP: BiPAP & CPAP Settings per PSN Fraction of Inspired Oxygen ( 2 04/12/24 05:01 FIO2) Home O2 Discharge instructions: No Dressing / Incision Discharge Activity: Return to Normal Activity Dressing / Incision Call your doctor if you observe: Fever of 101 or Higher, Shortness of breath, Dizziness, Fainting spells, Swelling in the ankles, Chest pain and Increased palpitations (irregular heartbeat) Follow Up Care Test Results: Test results from this visit will be discussed in further detail at your follow- up appointment, if applicable. Discharge Plan Admission Admit Date/Time: 04/11/24 16:25 Attending Provider: Nelson Urban Primary Care Provider: Mauricio Barney Consulting Providers: Meghan Tsai Discharge Orders/Prescriptions Prescriptions: Continued (DME) handicap placcard See Rx Instructions .Route .MEDSUPPLY Qty: 1 0RF Rx Instructions: dx: severe OA expires: 5 years Eliquis 5 mg Tablet 5 mg PO BID cholecalciferol (vitamin D3) 25 mcg (1,000 unit) Tablet 50 mcg PO DAILY Qty: 0 0RF amiodarone 200 mg tablet 200 mg PO DAILY duloxetine 60 mg capsule,delayed release(DR/EC) 60 mg PO DAILY L.acidoph,saliva-B.bif-S.therm [Acidophilus Probiotic Blend] 175 mg capsule 1 cap PO DAILY mirtazapine 15 mg Tablet 30 mg PO QHS Simponi ARIA 12.5 mg/mL solution See Rx Instructions IV .COMPLEX Patient Comments: INFUSE 2MG/KG IV EVERY 8 WEEKS Rx Instructions: intravenously every 8 weeks; acetaminophen 500 mg Tablet 1,000 mg PO Q6H PRN PRN (Reason: Pain Score 1-5) Qty: 0 0RF lorazepam 0.5 mg tablet 0.5 mg PO BID PRN PRN (Reason: anxiety) levothyroxine 50 mcg tablet 50 mcg PO DAILY AZO D-Mannose 500 mg capsule 1,000 mg PO BID atorvastatin 20 mg tablet 20 mg PO QHS Qty: 90 3RF Referrals / Follow Up: Mauricio Barney MD [Primary Care Provider] - Within 1 Week Disposition Disposition (needs filled in before D/C Order can be placed): Home, Self Care
--- NOTE | 2024-04-12 09:17 | PCM.DC.SUM ---
Providers Date of Admission: 04/11/24 Primary Care Physician: Dr. Mauricio Barney MD Reason For Visit: FALL/HYPOXIA Diagnosis Discharge Diagnosis (1) Hypoxia: Status: Acute Code(s): R09.02 - Hypoxemia (2) Fall: Status: Acute Code(s): W19.XXXA - Unspecified fall, initial encounter Medications at Discharge Home Medications handicap placcard #1 ea 05/07/20 atorvastatin 20 mg tablet 20 mg PO QHS cholesterol #90 tabs 09/25/21 apixaban 5 mg tablet (Eliquis) 5 mg PO BID blood thinner 04/27/22 cholecalciferol (vitamin D3) 25 mcg (1,000 unit) tablet 50 mcg (2 x 25 mcg (1,000 unit)) PO DAILY suppliment #0 tabs 02/21/23 L.acidophil,salivari-Bifido bifidum-Strep thermoph 175 mg capsule (Acidophilus Probiotic Blend) 1 cap PO DAILY gut health 01/29/24 amiodarone 200 mg tablet 200 mg PO DAILY heart 01/29/24 duloxetine 60 mg capsule,delayed release 60 mg PO DAILY mood 01/29/24 mirtazapine 15 mg tablet 30 mg PO QHS mood 01/29/24 golimumab 12.5 mg/mL intravenous solution (Simponi ARIA) See Rx Instructions IV .COMPLEX arthritis 01/31/24 acetaminophen 500 mg tablet 1,000 mg (2 x 500 mg) PO Q6H PRN PRN Pain Score 1-5 #0 tabs 02/17/24 d-mannose 500 mg capsule (AZO D-Mannose) 1,000 mg PO BID 04/10/24 levothyroxine 50 mcg tablet 50 mcg PO DAILY 04/10/24 lorazepam 0.5 mg tablet 0.5 mg PO BID PRN PRN anxiety 04/10/24 Hospital Course Operations None Procedures None Summary of Care Provided Minutes Spent on Discharge: 33 Hospital Course: Per HPI: BRADLEY GILMORE, is a 83 F who presented to the emergency department at [facility] late on 04/10/2024 due to a fall. Patient was sitting on a riser for the toilet seat at which time one of the legs broke off and she fell to the floor. She was unable to get up independently and her eventually found her on the floor after her cat led him to her. She was brought in by EMS and reported she was feeling fine. When she fell she hit the door frame of the bathroom and her left hip and fell to the ground on her left side. On presentation she was complaining of low back pain and hip pain as well as some neck pain. She denied any loss of consciousness. She is on Eliquis at baseline. Extensive imaging was performed and found to be negative and the plan was to discharge her home however she was found to be hypoxic on assessment and required 1 L of oxygen to maintain sats greater than 88%. Given her hypoxia it was felt that she would require admission. She was given morphine for pain upon presentation. From a respiratory standpoint she was completely asymptomatic. Vital signs on presentation showed a temperature of 97.8, heart rate 86, respiratory is 14, blood pressure is 108/77 and pulse ox was 91%. She was placed initially on 3 L and weaned to 1 L. CBC was unremarkable other than mild monocytosis on her differential at 14.8% however this does not appear to be new. Coags are slightly elevated as to be expected on Eliquis. Chemistry panel was unremarkable. She had extensive imaging including a CT of the brain, CT of the cervical spine, femur and pelvic x-rays, knee x-ray, lumbar spine x-ray, CT of the lower extremity and CT of the lumbar spine. The only significant abnormality that was noted on any of the imaging was a chronic compression fracture in the lumbar spine L2 and L3. As noted the initial intent was to discharge her home however with her hypoxia it was felt she would require observation overnight. Hospital Course: 1. Acute hypoxic insufficiency?83-year-old female presented to the hospital after mechanical fall and was admitted secondary to her oxygen requirements this was felt to possibly be due to morphine in the ER for pain. Etiology still unclear however today she does not require any oxygen with ambulation or at rest, respiratory panel and viral panels are all negative. She has no history of CHF and there does not appear to be fluid overload on her chest x-ray. There does appear to be some slight atelectasis potentially, she is afebrile with no leukocytosis so pneumonia is also unlikely. Given her improvement without any specific intervention other than incentive spirometry, it does appear that this was likely atelectasis in nature secondary to her fall and morphine. She denies any chest pain with inhalation. I discussed with her and her daughter the plan for discharge today they expressed understanding of the risks and benefits of going home and would like to go home today. Her daughter will stay with her for the foreseeable future as their father was also recently in a fdc and now just got home. 2. Lower extremity wound, paroxysmal A-fib, hypothyroidism, depression, anxiety, hyperlipidemia, history of DVT, history of GI bleed with peptic ulcer disease or chronic medical conditions which complicate her care. Her home medications were continued where appropriate Physical Exam Narrative General: Alert, Oriented x3, Cooperative, No apparent distress HEENT: Atraumatic, PERRLA, EOMI, Normocephalic Oral: Moist Mucosa Neck: Supple, No JVD Lungs: Diminished, Normal air movement, No rhonchi, No wheeze, No rales Cardiovascular: Regular rate, Regular Rhythm, Normal S1, Normal S2, No murmurs Abdomen: Soft, Non Tender, Non-Distended, No Hepato-splenomegaly Extremities: No edema, Capillary Refill Less than 3 Seconds Skin: Left lower extremity wound dressed Musculoskeletal: No Tenderness to Palpation of Joints or Extremities Neurological: No focal neurological deficits, Motor Exam 5/5 strength throughout, Sensory exam intact to light touch and pain Psych/Mental Status: Normal Affect, Appropriate Weight / BMI Weight Weight: 187 lb 13.341 oz Body Mass Index (BMI) 32.2 ABG / Lab / Microbiology Data 04/11/24 05:10 04/12/24 06:16 Laboratory: Laboratory Results - last 24 hr 04/12/24 06:16: Sodium 140, Potassium 4.0, Chloride 106, Carbon Dioxide 29.0, Anion Gap 5, BUN 19 H, Creatinine 1.22 H, Estim Creat Clear Calc 37.55, Est GFR (MDRD) Af Amer 54 L, Est GFR (MDRD) Non-Af 45 L, BUN/Creatinine Ratio 15.6, Glucose 99, Calcium 8.6 Microbiology: Microbiology 04/11/24 01:13 Mucosa - Nose SARS-CoV-2, Influenza & RSV (PCR) - Final D/C Instructions Discharge Diet: Low fat / Low cholesterol Call your doctor if you observe: Fever of 101 or Higher, Shortness of breath, Dizziness, Fainting spells, Swelling in the ankles, Chest pain and Increased palpitations (irregular heartbeat) DC O2, CPAP, BIPAP Needs RN Home O2 Qualification: Home O2 Qualification: Is the patient on home oxygen No 04/12/24 07:45 Home O2 Qualification: AT REST 1- Pulse Ox at rest 97 04/12/24 07:45 2- Pulse Ox at rest 93 04/12/24 06:49 2- Oxygen Flow Rate at rest 1 04/12/24 06:49 Home O2 Qualification: WITH AMBULATION 1- Pulse Ox with ambulation 91 04/12/24 07:45 1- Oxygen Flow Rate with 0 04/12/24 07:45 ambulation PSN CPAP & BiPAP: BiPAP & CPAP Settings per PSN Fraction of Inspired Oxygen ( 2 04/12/24 05:01 FIO2) Home O2 Discharge instructions: No Meaningful Use Info Meaningful Use Meaningful Use Diagnoses (Choose all that apply): None applicable Ischemic Stroke Statin Dosing Therapy Reference: STATIN DOSE THERAPY REFERENCE: * Patients > 75 years receive moderate or high dose statin therapy. * Patients 75 years or YOUNGER should receive HIGH intensity statin dose unless contraindicated. You will be required to document reason for non-treatment if statin daily dose does not meet guidelines. HIGH DOSE STATIN THERAPY DAILY Atorvastatin > than or = to 40 mg Rosuvastatin > than or = to 20 mg Amlodipine + Atorvastatin > than or = to 2.5/40 mg Ezetimibe + Simvastatin 10/80 mg Simvastatin 80mg Discharge Plan Admission Admit Date/Time: 04/11/24 16:25 Attending Provider: Nelson Urban Primary Care Provider: Mauricio Barney Consulting Providers: Meghan Tsai Discharge Orders/Prescriptions Prescriptions: Continued (DME) handicap placcard See Rx Instructions .Route .MEDSUPPLY Qty: 1 0RF Rx Instructions: dx: severe OA expires: 5 years Eliquis 5 mg Tablet 5 mg PO BID cholecalciferol (vitamin D3) 25 mcg (1,000 unit) Tablet 50 mcg PO DAILY Qty: 0 0RF amiodarone 200 mg tablet 200 mg PO DAILY duloxetine 60 mg capsule,delayed release(DR/EC) 60 mg PO DAILY L.acidoph,saliva-B.bif-S.therm [Acidophilus Probiotic Blend] 175 mg capsule 1 cap PO DAILY mirtazapine 15 mg Tablet 30 mg PO QHS Simponi ARIA 12.5 mg/mL solution See Rx Instructions IV .COMPLEX Patient Comments: INFUSE 2MG/KG IV EVERY 8 WEEKS Rx Instructions: intravenously every 8 weeks; acetaminophen 500 mg Tablet 1,000 mg PO Q6H PRN PRN (Reason: Pain Score 1-5) Qty: 0 0RF lorazepam 0.5 mg tablet 0.5 mg PO BID PRN PRN (Reason: anxiety) levothyroxine 50 mcg tablet 50 mcg PO DAILY AZO D-Mannose 500 mg capsule 1,000 mg PO BID atorvastatin 20 mg tablet 20 mg PO QHS Qty: 90 3RF Referrals / Follow Up: Mauricio Barney MD [Primary Care Provider] - Within 1 Week Disposition Disposition (needs filled in before D/C Order can be placed): Home, Self Care Charges/Coding Visit Charges Inpatient E&M: 03602 Disch Hosp >30min
--- NOTE | 2024-04-12 09:30 | CASEMGMT ---
Addendum entered by Humera Trejo 04/12/24 13:13: Received notification from Deb at [facility], they will accept pt back and will reach out to her to schedule an appt. Original Note: JAYDEN CERDA Assessment: Face to Face with pt for initial transition planning/care coordination assessment. JAYDEN CERDA introduced self and role at [facility], pt voices understanding and consents to assessment. Pt is A&O x4 and answers all questions appropriately at this time. Pt lying in bed on RA in no distress with dtr at bedside. Pt agreeable to assessment with dtr present. Care providers, pharmacy, and demographics verified/updated. Admitting Dx: fall/hypoxia Strata Score: 2 PCP:Ector Specialists:BAM Enriquez weekly; Jody, cardio; Leonie, rheum Preferred Pharmacy: [facility] Insurance: [facility] Prescription Benefit: yes LNOK: Danisha Chacon, dtr; Amalia Sparks, dtr Living Arrangements: Pt lives with in a two story home with FFSU and a ramp to enter. Pt reports she is I in ADLS and most IADLs but dtrs get her her groceries. Pt denies concerns at home. Transportation: Pt dtrs transport pt to medical appts. DME:grab pole in bathroom, BSC, shower chair, grab bars in bathroom, walker, cane HHC/SNF: Pt is [facility] with [facility] for SN and PT. Pt has been to [facility] in the past. Pt states no concerns with going home at time of dc. Pt did not qualify for home oxygen. Pt states she would like to resume with [facility] and denies need for list of other options. Pt states the nurse does wound care to her leg and her dtrs also can do the wound care. Pt states no further concerns/needs. CM to follow. Advised pt to ask CM if any further question/concerns/needs arise, voices understanding. Pt Goal: Home with [facility] resuming Plan: Home with [facility] resuming, referral sent to [facility] via [facility] at this time. Laura CARPENTER CM
--- NOTE | 2024-04-12 10:26 | WOUNDNOTE ---
wound photo: left lower leg
--- NOTE | 2024-04-12 10:26 | WOUNDNOTE ---
wound to the left lower leg is now healed. patient states she has a follow up appt at the wound healing center on Tuesday. Did apply some hydrogel to the skin and covered with dry dressing for protection since patient is going home. pt tolerated well. see wound photo.
== END 2024-04-12 10:41 | disposition home or self-care (01) | DRG 206 ==
LOC: ED 04-11 01:16 → MS3 04-11 01:25
PROVIDERS: Admitting Provider Internal Medicine; Emergency Provider Emergency Medicine; PCP Family Medicine; Visit Provider Family Medicine
DX: J98.11 Atelectasis (principal); E03.9 Hypothyroidism, unspecified; I10 Essential (primary) hypertension; F32.A Depression, unspecified; I48.0 Paroxysmal atrial fibrillation; E78.00 Pure hypercholesterolemia, unspecified; F41.9 Anxiety disorder, unspecified; M54.2 Cervicalgia; W18.39XA Other fall on same level, initial encounter; M25.552 Pain in left hip; R09.02 Hypoxemia; T40.2X5A Adverse effect of other opioids, initial encounter; Z79.01 Long term (current) use of anticoagulants; Z79.890 Hormone replacement therapy; Z79.899 Other long term (current) drug therapy; Z86.718 Personal history of other venous thrombosis and embolism; Z87.11 Personal history of peptic ulcer disease; Z87.19 Personal history of other diseases of the digestive system
CPT/HCPCS: 36415; 70450; 71046; 72100; 72125; 72131; 72170; 73552; 73564; 73700; 80048; 80053; 83735; 84100; 85025; 85610; 87631; 93005; 94668; 97162; 97166; 99252; 99285; A4216; G0463; J2405

== ENCOUNTER 2024-04-17 14:31 | Outpatient (RCR) | payer MEDICARE, SELFPAY ==
[2024-04-11 00:20] VITALS: BP 150/78; PULSE 83; RESP 18; TEMP 36.2; BMI 31.4
[2024-04-17 15:03] VITALS: BP 171/60; PULSE 64; RESP 16; TEMP 36.4; BMI 31.4
--- NOTE | 2024-04-19 12:27 | WC ---
PHOTO 04/17/24 ALFA NICHOLE
== END 2024-05-09 13:17 | disposition home or self-care (01) ==
LOC: WC 14:31
PROVIDERS: PCP Family Medicine; Referring Provider Surgery Plastic and Reconstructive Surgery; Visit Provider Nurse Practitioner Family
DX: Z00.00 Encounter for general adult medical examination without abnormal findings (principal)
CPT/HCPCS: 99211; G0463